=== PATIENT | female | born 1995 | race Caucasian/White ===

== ENCOUNTER 2018-02-21 01:11 | Emergency (ER) | payer MEDICAID, SELFPAY ==
[2018-02-21 01:11] VITALS: BP 196/113; PULSE 130; RESP 18; TEMP 37.1; O2SAT 96; BMI 66.8
--- NOTE | 2018-02-21 01:20 | CT_ITS ---
STUDY: CT ABDOMEN AND PELVIS WITH CONTRAST REASON FOR EXAM: Female, 22 years old. Right lower quadrant pain. Elevated WBCs. RADIATION DOSAGE (If Supplied By Facility): CTDIvol = ( 40.91 ) mGy, DLP = ( 1826.99 ) mGycm TECHNIQUE: Transaxial images were obtained from the dome of the diaphragm to the symphysis pubis without oral contrast. 100ML ml of Isovue 300 contrast was administered. Sagittal and coronal images were reconstructed. Individualized dose optimization techniques were used for this CT. COMPARISON: None. FINDINGS: The visualized lung bases are unremarkable. The visualized portions of the heart are within normal limits. Normal liver. Normal gallbladder and extrahepatic biliary system. Normal spleen. Normal pancreas. Normal bilateral adrenal glands. Normal right kidney. Normal left kidney. Normal visualized stomach. Normal small intestine. There is fecal retention. The appendix is suboptimally visualized but appears to be unremarkable best seen on axial images 77 and 78 series 2. It appears to be short. No periappendiceal inflammatory changes are seen. Normal abdominal aorta. Normal inferior vena cava. Normal retroperitoneum. There is a cystic structure in the pelvic lesion in the midline in the lesion of the bladder however is slightly presenting cystic lesion. The bladder is questionably visualized proximal inferior and axial images and appears to be collapsed. Contrast however has not yet reached the bladder. Further evaluation with ultrasound is recommended. There is a 5.5 cm cystic lesion in the left adnexal region. Normal abdominal wall. Normal osseous structures. CT/Abdomen/Pelvis WITH Contrast IMPRESSION: No evidence of acute appendicitis as described above. Cystic structure in the lower pelvic lesion which could represent a cystic lesion or less likely may represent urinary bladder. Correlation with pelvic ultrasound is recommended. 5.5 cm left adnexal cystic lesion. Otherwise no demonstrated acute process. Electronically Signed: Zachariah Christianson MD at 3:44 EDT Tel , Service support ,
--- NOTE | 2018-02-21 01:23 | ED.VISSUMM ---
- ER Visit Summary Date of Service: 02/21/18 Chief Complaint: Abdominal pain History of Present Illness: The patient is a 22 F presenting with abdominal pain. She states it started earlier today. She has pain in the right lower quadrant. She has nausea with no vomiting. She has diarrhea. She denies blood in her stool. She also complains of dysuria. Denies vaginal discharge or bleeding. Denies possibility of . Denies other complaints. Physical Examination: Vitals are stable. Patient is afebrile. Alert no acute distress. HEENT exam is unremarkable. Neck is supple. Lungs are clear and equal bilaterally. Heart is regular and tachycardic Abdomen is soft obese, right lower quadrant tenderness with no rebound or guarding. Extremities are unremarkable. Skin is warm and dry. Remainder of exam is unremarkable. Emergency Department Course and Treatment: Patient is given IV fluids, morphine, Zofran. CBC shows a white count of 12.8, platelets 613. This is similar to previous. Glucose is 140. HCG negative. UA shows 0-5 white blood cells, 0 red cells, 10-[address] abd/pelvis shows no evidence of acute appendicitis. Cystic structure in the lower pelvic lesion which could represent a cystic lesion or less likely may represent urinary bladder. Correlation with pelvic ultrasound is recommended. 5.5 cm left adnexal cystic lesion. Otherwise no demonstrated acute process. Pelvic ultrasound shows enlarged ovaries right larger than left containing multiple simple cysts. Findings are compatible with either atypical physiologic cysts or benign ovarian neoplasms. Normal vascular flow. Patient has a history of PCOS but has not seen FLOOD CONTROL ENGINEER in 2 years[address] She was given Dr. Bullard information for follow-up. She is given a prescription for Naprosyn. Advised return to ED for worsening complaints. Disposition: Discharge home Impression: Abdominal pain, polycystic ovarian syndrome This note was generated with [employer] dictation software. It may contain incorrect words, spelling, and punctuation that were not noted in review of the chart prior to signing ED Disposition - Plan for ED Patient: Chief Complaint: Abd Pain Instructions: ED Abdominal Pain Unkn Cause, ED Cyst Ovarian Prescriptions: Naproxen [Naprosyn] 500 mg PO BID PRN #20 tablet Referrals: Cynthia Bullard MD [STAFF PHYSICIAN] - Care Physician,No Primary [NON-STAFF] -
[2018-02-21] MEDS: Morphine 4 MG/ML Syringe IV (01:29)
[2018-02-21] MEDS: Ondansetron 4 MG/2 ML Vial IV (01:29)
[2018-02-21] MEDS: 0.9% Normal Saline 1,000 ML 1000 ML IV (01:29)
[2018-02-21 01:55] LABS: Absolute Lymphocyte Count 3.53 X10^3/ul (0.83-4.51); Absolute Neutrophil Count 8.2 X10^3/uL (2.0-7.7); Basophil# 0.04 X10^3/uL; Basophil% 0.3 % (0-1); Eosinophil# 0.21 X10^3/uL; Eosinophils% 1.6 % (0-5); Hematocrit 39.9 % (37-47); Lymphocyte # 3.53 X10^3/ul (4.0); Lymphocyte % 27.6 % (19-41); Mean Corp Hgb Conc 32.6 g/gl (32-36); Mean Corpuscular Hgb 25.5 pg (27.0-32.0); Mean Corpuscular Volume 78.4 fL (81-99); Mean Platelet Vol. 9.2 fl (6.2-12.0); Monocyte# 0.74 X10^3/uL; Monocyte% 5.8 % (0-10); Neutrophil # 8.23 X10^3/uL (2.7-7.7); Neutrophil % 64.5 % (47-70); POSITIVE COUNT NO; POSITIVE DIFFERENTIAL NO; POSITIVE MORPHOLOGY NO; Platelet Count 613 K/mm3 (150-450); RBC Distribution Width CV 16.3 % (11.6-14.6); RBC Distribution Width SD 46.1 fl (35.1-43.9); Red Blood Count 5.09 M/mm3 (4.2-5.4); White Blood Count 12.8 K/mm3 (4.4-11.0)
[2018-02-21 02:03] LABS: ALB/GLOB Ratio 0.5 RATIO (0.9-2.4); AST(SGOT) 16 U/L (15-37); Alanine Aminotransfer ALT/SGPT 22 U/L (13-56); Albumin, Serum 3.1 g/dL (3.2-5.0); Alkaline Phosphatase 97 U/L (45-117); Anion Gap 7 (5-15); BUN 8 mg/dL (7-18); BUN/Creat Ratio 13.5 RATIO (10-20); Chloride 105 mmol/L (98-107); Creatinine, Serum 0.59 mg/dL (0.55-1.02); EST Glomerular Filtration Rate 132 mL/min (>60); Est Glom Filt Rate - Afr Amer 160 mL/min (>60); Estimated Creatinine Clearance 121.63 ml/min; Globulin 5.9 g/dL (2.2-4.2); Glucose 140 mg/dL (74-106); Potassium 3.9 mmol/L (3.5-5.1); Sodium Level 138 mmol/L (136-145)
[2018-02-21 02:19] LABS: Pregnancy, Serum, hCG Quali. NEGATIVE Negative (0-9 Nonpreg)
[2018-02-21 02:36] LABS: Bacteria 0 SEEN /hpf (None Seen); Red Blood Cells-Urine 0 SEEN /hpf (0-5)
[2018-02-21 02:37] LABS: Color, Urine Yellow (Yellow); Glucose, Dipstick Normal (Normal); Ketone-Dipstick 5 mg/dl (Negative); Leukocyte Esterase-Dipstick 25 /ul (Negative); Nitrite-Dipstick Negative (Negative); Occult Blood-Urine 25 /ul (Negative); Protein-Dipstick 500 mg/dl (Negative); Specific Gravity, Urine 1.025 (1.002-1.030); Urine Bilirubin Dipstick Negative (Negative); Urine Clarity Sl. Cloudy (Clear); Urine Urobilinogen 1 mg/dl (Normal)
[2018-02-21 02:46] LABS: Mucous, Urine 2+ /hpf (<or=2+); Squamous Epithelial Cells - UA 10-25 SEEN /hpf (5-10); White Blood Cells 0-5 SEEN /hpf (0-5)
[2018-02-21 02:47] LABS: Hyaline Cast 5-10 SEEN /lpf (0-5)
[2018-02-21 03:32] VITALS: RESP 18
--- NOTE | 2018-02-21 03:47 | US_ITS ---
STUDY: ULTRASOUND TRANSVAGINAL CLINICAL: Female, 22 years old. Ovarian cyst. No menstrual cycle this year. TECHNIQUE: Transvaginal COMPARISON: CT abdomen and pelvis February 21, 2018. FINDINGS: The uterus is empty for potential to the right. There is some 0.6 x 4.3 x 3.3 cm. Endometrial thickness 10 mm. Endometrium is hyperechoic. No fibroids. Nabothian cysts on the cervix. No IUP. Right ovary is enlarged, measures 12.2 x 8.2 x 7.9 cm and contains multiple simple cysts the largest measuring 6.6 x 5.6 x 6.2 cm and 7.0 x 6.0 x 5.4 cm. No irregular septations. Normal vascular flow. Left ovary is enlarged measuring 6.7 x 4.2 x 3.9 cm and contains multiple simple cysts largest measuring 3.7 x 3.6 x 2.4 cm. No irregular septations. Normal vascular flow. No free fluid in the cul-de-sac. Images of the bladder are unremarkable. US/Transvaginal Non- IMPRESSION: Enlarged ovaries right larger than left containing multiple simple cysts. Findings are compatible with either atypical physiologic cysts or benign ovarian neoplasms. Recommend CROSS COUNTRY COACH consult. Electronically Signed: Yinka Chambers MD at 5:41 EDT , Service support ,
[2018-02-21 04:41] VITALS: PULSE 99
--- NOTE | 2018-02-21 05:48 | ED.DEP ---
ED Disposition - Plan for ED Patient: Chief Complaint: Abd Pain Instructions: ED Abdominal Pain Unkn Cause, ED Cyst Ovarian Prescriptions: Naproxen [Naprosyn] 500 mg PO BID PRN #20 tablet Referrals: Care Physician,No Primary [NON-STAFF] - Cynthia Bullard MD [STAFF PHYSICIAN] -
[2018-02-21 05:57] VITALS: BP 164/104; PULSE 74; RESP 18; O2SAT 95
== END 2018-02-21 05:58 | disposition home or self-care (01) ==
PROVIDERS: Emergency Provider Emergency Medicine; Family Provider Student in an Organized Health Care Education/Training Program; PCP Student in an Organized Health Care Education/Training Program
DX: R10.31 Right lower quadrant pain (principal); E28.2 Polycystic ovarian syndrome; R11.0 Nausea; R19.7 Diarrhea, unspecified; R30.0 Dysuria; N83.8 Other noninflammatory disorders of ovary, fallopian tube and broad ligament; N83.202 Unspecified ovarian cyst, left side; N83.201 Unspecified ovarian cyst, right side
CPT/HCPCS: 74177; 76830; 80053; 81001; 84703; 85025; 93976; 96361; 96374; 96375; 99283; J7030; Q9967; A4216; J2405

== ENCOUNTER 2018-03-21 11:11 | Day surgery (SDC) | payer MEDICAID, SELFPAY ==
[2018-03-21] VITALS (12 sets, daily range): BP systolic 149–177; BP diastolic 86–109; PULSE 82–122; RESP 16–28; TEMP 36.4–36.9; O2SAT 90–98; BMI 65.5
--- NOTE | 2018-03-21 09:37 | HP.PCM_ITS ---
- Problem List (1) Bilateral ovarian cysts Status: Acute Comment: recommend laparoscopic ovarian cystectomy (2) PCOS (polycystic ovarian syndrome) Status: Acute Comment: Mirena IUD History and Physical Date of Admission: 03/21/18 Intake Vital Signs 3 02/27/18 Height 5 ft 3 in 02/27/18 Weight: 382 lb 02/27/18 Body Mass Index (BMI) 67.6 Intake Visit Reasons: [facility] ER FOLLOW UP - RIGHT OVARIAN CYST Is patient in pain?: Yes Allergies No Known Allergies Allergy (Verified 02/27/18 16:24) Medications Naproxen [Naprosyn] 500 mg PO BID PRN #20 tab 02/21/18 [Rx Confirmed 02/27/18] [facility] Medical History Bilateral ovarian cysts (Acute) PCOS (polycystic ovarian syndrome) (Acute) Anxiety and depression (Acute) Surgical History History of ear, nose, and throat (ENT) surgery (Acute) History of tonsillectomy (Acute) corrective eye surgery (Acute) Family History Mother Diabetes Kidney disease Social History Smoking Status: Never smoker alcohol intake: never substance use type: does not use caffeine: No what type of physical activity do you participate in: walking seatbelt use: always do you feel safe at home: Yes additional social history: [place] Patient is unemployed HPI [facility] ER FOLLOW UP - RIGHT OVARIAN CYST: Details: SOLEDAD LOYOLA is a 22 year old who presents for lower pelvic pain. she has a 1 week history of intermittent moderate to severe lower pelvic painw orse on right than the left. she was seen in the ER and it was found that she has large bilateral ovarian cysts with normal vascular flow. she has a history of PCOS and irregular menses. she hasn't had a menses in a long time they are very irregular. she isn't wanting to conceive right now and isn't on any control. had ct scan with normal appendix Female Reproductive History Cycle Length: >35 Control Method: none Questions: Metorrhagia: Yes, Sexually active: Yes, Dyspareunia: No, PCB: No Pregancy History 2 1 Elective abortions Hx Para Spontaneous abortions 1 Hx # Term Pregnancies Ectopic pregnancies Hx # Pregnancies Multiple births # of living children ROS Const Constitutional: Denies poor appetite, headache(s), fever(s), increased appetite , weight gain, weight loss or fatigue ENT ENT: Denies dizziness or dry mouth Cardio Card: Denies chest pain Resp Resp: Denies dyspnea or cough GI GI: Reports as per HPI and abdominal pain; denies vomiting, nausea or constipation : Reports as per HPI; denies urinary urgency, vaginal discharge, urinary frequency, vaginal itching, vaginal odor, vaginal dryness, urinary incontinence, urinary hesitancy, pelvic pain, difficulty urinating or painful urination Musc Musc: Denies muscle weakness, joint pain or back pain Skin Skin/Breast: Denies hair loss, change in hair, dry skin, breast pain, breast skin changes or breast lump Neuro Neuro: Denies dizziness Psych Psych: Denies anxiety or depression Endo Endo: Denies cold intolerance, increased thirst, excessive sweating or heat intolerance Sina/Lymph Hematologic/Lymphatic: Denies easy bleeding, Denies easy bruising, Denies enlarged lymph nodes Exam Const General: cooperative, healthy appearing, comfortable, no acute distress, well developed Nutritional Appearance: obese morbidy Orientation: alert HENMS Head: normal to inspection, normocephalic Ears: hearing grossly normal bilaterally, external ears normal Nose: external nose normal, nares normal Face and sinus: normal facial exam Neck Neck: normal visual inspection, trachea midline, no lymphadenopathy Thyroid: thyroid normal Chest Chest palpation & inspection: normal inspection of the chest Resp Effort & Inspection: normal respiratory effort Auscultation: clear to auscultation bilaterally Cardio Rate: regular rate Rhythm: regular rhythm Heart Sounds: S1 normal, S2 normal GI Inspection: normal to inspection, non-distended, large pannus, obesity Palpation: soft, tender in the RLQ [facility] [place] Spine: other Other: gross motor intact no deficits, full bilateral strength Skin General: no rashes or lesions noted Neuro General: alert, awake, no focal motor deficits, moves all extremities Motor: muscle tone normal throughout Extrem General: normal to inspection, no pedal edema Psych Appearance: grossly normal Mental Status: mental status grossly normal Affect: normal affect Speech and Movement: speech and movement normal Assessment & Plan Problems 1. PCOS (polycystic ovarian syndrome) E28.2 Mirena IUD 2. Bilateral ovarian cysts N83.201; N83.202 recommend laparoscopic ovarian cystectomy Plan discussed surgical managment and recommend control/endometrial protection. plan laparoscopic bilateral ovarian cystectomies possible oophorectomy, and mirena IUD insertion. Discussed with the patient risks of surgery including risks of anesthesia, bleeding, infection, damage to surrounding structures such as bowel, bladder, or vasculature that could lead to additional surgery to repair. I discussed the risk of needing to convert to open abdominal procedure if unable to perform the procedure laparoscopically. Coding Level of Care Code Off vis,new,level 5 Diagnoses PCOS (polycystic ovarian syndrome) E28.2 Bilateral ovarian cysts N83.201; N83.202 patient seen and updated the h and p with any clinically relevant changes
[2018-03-21 11:45] LABS: Internal QC Validated? YES +Cl - CLEAR BKGD; Pregnancy, Urine Negative Negative
[2018-03-21 11:53] LABS: Mean Corp Hgb Conc 31.6 g/gl (32-36); Mean Corpuscular Hgb 25.2 pg (27.0-32.0); Mean Corpuscular Volume 79.7 fL (81-99); Mean Platelet Vol. 9.3 fl (6.2-12.0); Platelet Count 555 K/mm3 (150-450); RBC Distribution Width CV 16.2 % (11.6-14.6); RBC Distribution Width SD 46.7 fl (35.1-43.9); Red Blood Count 4.77 M/mm3 (4.2-5.4); White Blood Count 12.2 K/mm3 (4.4-11.0)
[2018-03-21 11:56] LABS: Scan Indicated on CBC? Y/N NO
[2018-03-21] MEDS: Ipratropium/Albuterol Sulfate 3 ML AMPUL.NEB INHALATION (12:46)
--- NOTE | 2018-03-21 13:00 | OV_PTH ---
PATIENT: SOLEDAD LOYOLA [place] [facility] [place][id number] AGE/SX: 22/F ROOM: RE03/21/[address]: Dr. Cynthia Bullard MD : 1995 BED: DIS: 03/21/2018 SPEC #: [id number] RECD: 03/21/18 16:07 STATUS: JESSICA JULIAN #: [id number] EDGAR: 03/21/18 13:[address]: Cynthia Bullard DEPT: SURGICAL PATHOLOGY RECD BY: Karlo Harris ENTERED: 03/24/18 10:17 SP TYPE: OVARY OTHR DR: Dr. Xiang Ruiz, Tissues: A - OVARIAN CYST B - Fallopian tube C - OVARIAN CYST Procedures: Surgery Specimen Level II Surgery Specimen Level IV HEADER OPERATION: Laparoscopic bilateral ovarian cystectomy, IUD insertion PRE-OP DIAGNOSIS: Bilateral ovarian cysts, PCOS TISSUE SUBMITTED: A ? Right ovarian cyst wall, B ? Right fallopian tube mass, C ? Left ovarian cyst wall MICROSCOPIC DIAGNOSIS A. Right ovarian cyst wall: Consistent with simple serous cystadenoma. B. Right fallopian tube mass: Fallopian tube, no pathologic diagnosis. Adjacent nodular mass, consistent with fibrous nodule with area of infarction. See comment. C. Left ovarian cyst wall: Consistent with simple serous cystadenoma. Physiologic follicular cysts. SJ:arina 03/25/18 COMMENT Nodular mass also show adherent fallopian tube tissue. This case has been reviewed in consultation with Dr. Hodges who concurs with the above diagnosis. MICROSCOPIC DESCRIPTION Slides are reviewed. GROSS DESCRIPTION A - Received in fixative is one container labeled with the patient's name and designated right ovarian cyst wall. The specimen consists of several pieces of yang soft tissue consistent of cyst wall measuring in aggregate 7 x 2 cm. No papillations are identified. Sugar Coating Hand sections are submitted in 3 cassettes. B - Received is one container labeled with the patient name and designated right ovarian fallopian tube mass. Received is fallopian tube with edges and nodular mass. The fallopian measures 2.5 cm in length and 1 cm in diameter. Fimbrial end is noted. Section of fallopian tube did not reveal any mass lesion. A nodular mass is noted adjacent to it which measures 2.7 x 2 x 1.7 cm. It weighs 5.6 grams. Sections reveal focally congested and hemorrhagic cut surfaces. The entire specimen is submitted in four cassettes as follows: 1 ? fallopian tube, 2?4 nodular mass. C ? Received in fixative is one container labeled with the patient's name and designated left ovarian cyst wall. The specimen consists of 2 pieces of yang soft tissue consistent with cyst wall measuring in aggregate 4 x 2 x 0.5 cm. No papillations are identified. The entire specimen is submitted in two cassettes. WALKER:arina 03/23/18 TC: 1 CPT: 64221 x3
[2018-03-21] MEDS: Bupivacaine 0.25% 30 ML Vial (15:00)
--- NOTE | 2018-03-21 16:47 | PCM.DC.TUB ---
Discharge Diet: No Restrictions - Increase fluid intake for the next 48 hours. Discharge Activity: Return to Normal Activity, May Drive - when you are no longer taking narcotic pain medications., May Shower, May Take a Tub Bath - in 7 days Additional Activity Instructions:: Ambulate often the next week after surgery. Nothing in the vagina for 5 days. Call your doctor if your incision/area has: Continuous Slow Oozing, Sudden Increased Bleeding, Increased Pain/ Swelling, Increased Redness, Foul Smelling Discharge Call your doctor if you observe: Fever of 101 or Higher Allergies/Adverse Reactions: Allergies No Known Allergies Allergy (Verified 03/17/18 09:34) Medications to take at Discharge Naproxen [Naprosyn] 500 mg PO BID PRN #20 tab 02/21/18 Naproxen [Naprosyn] 250 - 500 mg PO Q8H PRN PRN #30 tab 03/21/18 Oxycodone HCl/Acetaminophen [Percocet 5-325] 1 - 2 tablet PO Q4H PRN PRN 7 Days #28 tablet 03/21/18 The following prescriptions were given: Oxycodone HCl/Acetaminophen [Percocet 5-325] 1 - 2 tablet PO Q4H PRN PRN 7 Days #28 tablet PRN Reason: Moderate-Severe pain Naproxen [Naprosyn] 250 - 500 mg PO Q8H PRN PRN #30 tab PRN Reason: MILD PAIN Primary Care Physician: Xiang Ruiz DO [Primary Care Provider] - Please Follow Up With: Cynthia Bullard MD - [phone]
--- NOTE | 2018-03-22 01:34 | PCM.OPRPT ---
Problem List (1) Bilateral ovarian cysts Status: Acute Comment: recommend laparoscopic ovarian cystectomy (2) PCOS (polycystic ovarian syndrome) Status: Acute Comment: Mirena IUD (3) Acute pelvic pain, female Status: Acute Report of Operation Date of Procedure: 03/21/18 Pre-Operative Diagnosis: bilateral ovarian cysts, morbid obesity, pelvic pain Post-Operative Diagnosis: same plus liver puncture, right fallopian tube mass Surgery/Procedure Performed:: laparoscopic bilateral ovarian cystectomies right partial salpingectomy, mirena IUD placement Description of Surgical Findings:: hepatomegaly with liver extending below the left costal margin beyond the stomach, enlarged gall bladder, bilateral enlarged ovaries with multicystic appearance, right fallopin tub mass extending from the fimbriae. normal uterus and normal appendix. normal appearance of stomach and bowel. coating supervisor: Luis Alberto Garcia Type of Anesthesia:: General Special Medications: none Specimen's removed: right fallopian tube mass, ovarian cyst wall Drains: linton Estimated Blood Loss (mL): minimal Fluids Replaced: crystalloid Description of Procedure: Patient was taken in the operating room and was placed under general anesthesia was prepped and draped in normal sterile fashion in the dorsal lithotomy position. Bladder was drained of clear urine and SCDs were on preoperatively. Uterus was sounded and a uterine manipulator was placed after dilating. Attention was then paid to the abdominal portion of the procedure and due to the morbid obesity of a BMI of 65 and the large pannus the initial entry was made at webster's point located 3 cm below the left subcostal margin in the midclavicular line, it was injected with Marcaine and after a 5 mm incision was made and the Veress needle was entered into the abdomen with no blood or abnormal material aspirated upon entry, but was unable to locate the right plane and had a high opening pressure. The veres needle entry was aborted and the abdomen was entered under direct visualization with the 5 mm visiport and confirmed to be intraabdominal, the Abdomen was insufflated with CO2 gas. The area below the trocar was inspected and it was noted there were 2 small puncture of the lower edge of the liver caused by the veres needle that had a small adherent clot but were hemostatic. General surgery was consulted and Dr Mayo supervised exploration of the area at the bedside after a supraumbilical, right, and left lower quadrant ports were placed. the area was inspected and a through and through puncture was noted in the liver with no injury to the underlying stomach and bowel below were seen after close inspection. excellent hemostasis was noted. The liver was noted to be significantly enlarged and extending well below it's normal anatomic location, and the gall bladder was noted to be enlarged as well with no acute findings. Uterus was well visualized and bilaterally the ovaries were noted to be multicystic and grossly enlarged. The right ovarian cysts were drilled and drained of clear fluid and cystectomies were performed with sharp, blunt, and traction for extraction. It was then noted that the right fallopian tube had a 3x2 cm smoother but irregularly appearing mass attached to it, which was also adhesed to the right pelvic side wall adjacent to the appendix. the adhesions were taken down bluntly and the appendix identified and noted to be grossly normal, and the fallopian tube mass and attached fimbria were removed without complication or rupture and remove through a bag using a 12 mm port in the llq. Excellent hemostasis was noted. left ovarian cysts were drained and cytectomy performed and tissues removed. excellent hemostasis noted and no other gross abnormalities were seen in the abdomen. All instruments removed from the abdomen after gas was desufflated. Port sites were closed with 3-0 Monocryl Steri's and op sites were applied. All instruments removed from the vagina, uterus sounded to 8 cm and mirena IUD placed without difficulty and strings cut to 3-4 cm from the os and patient was awoken and taken recovery in stable condition. Grafts/Implants Used: none - Complications left liver puncture with excellent spontaneous hemostasis
== END 2018-03-21 19:30 | disposition home or self-care (01) ==
LOC: SDC 11:12 → AC 11:14
PROVIDERS: Family Provider Student in an Organized Health Care Education/Training Program; PCP Student in an Organized Health Care Education/Training Program; Visit Provider Obstetrics & Gynecology
PROC: (CPT 58300; principal; 2018-03-21 12:45)
DX: N83.02 Follicular cyst of left ovary (principal); K91.72 Accidental puncture and laceration of a digestive system organ or structure during other procedure; E28.2 Polycystic ovarian syndrome; D64.9 Anemia, unspecified; G47.30 Sleep apnea, unspecified; E66.01 Morbid (severe) obesity due to excess calories; Z68.44 Body mass index [BMI] 60.0-69.9, adult
CPT/HCPCS: 00840; 58300; 58661; 58662; 36415; 81025; 85027; 86850; 86900; 88302; 88305; 94640; J7120; J2405; J3490

== ENCOUNTER 2018-03-25 16:08 | Emergency (ER) | payer MEDICAID, SELFPAY ==
[2018-03-25 16:09] VITALS: BP 163/109; PULSE 123; RESP 22; TEMP 36.9; O2SAT 94; BMI 65.3
[2018-03-25 16:50] LABS: Absolute Lymphocyte Count 2.86 X10^3/ul (0.83-4.51); Basophil# 0.01 X10^3/uL; Basophil% 0.1 % (0-1); Eosinophil# 0.27 X10^3/uL; Eosinophils% 2.5 % (0-5); Hematocrit 35.9 % (37-47); Hemoglobin 10.8 g/dl (12.0-15.0); Lymphocyte # 2.86 X10^3/ul (4.0); Lymphocyte % 26.7 % (19-41); Mean Corp Hgb Conc 30.1 g/gl (32-36); Mean Corpuscular Hgb 24.2 pg (27.0-32.0); Mean Corpuscular Volume 80.3 fL (81-99); Monocyte# 0.57 X10^3/uL; Monocyte% 5.3 % (0-10); Neutrophil # 6.99 X10^3/uL (2.7-7.7); Neutrophil % 65.2 % (47-70); POSITIVE COUNT NO; POSITIVE DIFFERENTIAL NO; POSITIVE MORPHOLOGY NO; Platelet Count 470 K/mm3 (150-450); RBC Distribution Width CV 16.2 % (11.6-14.6); RBC Distribution Width SD 47.4 fl (35.1-43.9); Red Blood Count 4.47 M/mm3 (4.2-5.4); White Blood Count 10.7 K/mm3 (4.4-11.0)
[2018-03-25 17:03] LABS: Anion Gap 7 (5-15); BUN 14 mg/dL (7-18); BUN/Creat Ratio 23.3 RATIO (10-20); Calcium,Total 8.7 mg/dL (8.5-10.1); Chloride 106 mmol/L (98-107); EST Glomerular Filtration Rate 130 mL/min (>60); Est Glom Filt Rate - Afr Amer 157 mL/min (>60); Glucose 115 mg/dL (74-106); Sodium Level 142 mmol/L (136-145)
[2018-03-25 17:16] LABS: Pregnancy, Serum, hCG Quali. NEGATIVE Negative (0-9 Nonpreg)
--- NOTE | 2018-03-25 17:28 | CT_ITS ---
STUDY: CT ABDOMEN AND PELVIS WITH CONTRAST REASON FOR EXAM: Female, 22 years old. Left lower quadrant pain with ovarian cyst RADIATION DOSAGE (If Supplied By Facility): CTDIvol = ( 16.32 ) mGy, DLP = ( 1528.61 ) mGycm TECHNIQUE: Transaxial images were obtained from the dome of the diaphragm to the symphysis pubis without oral contrast. 100 ml of Isovue 300 contrast was administered. Sagittal and coronal images were reconstructed. Study is limited due to artifact from morbid obesity. Individualized dose optimization techniques were used for this CT. COMPARISON: None. FINDINGS: The visualized lung bases are unremarkable. The visualized portions of the heart are within normal limits. There is decreased attenuation of the liver consistent with steatosis. Mild hepatomegaly. Normal gallbladder and extrahepatic biliary system. Normal spleen. Normal pancreas. Normal bilateral adrenal glands. Normal right kidney. Normal left kidney. Normal visualized stomach. Normal small intestine. Normal colon. The appendix is visualized and appears normal. Normal abdominal aorta. Normal inferior vena cava. Normal retroperitoneum. Normal urinary bladder. Metallic IUD seen in the endometrium. Subcutaneous emphysema seen within the overlying anterior abdominal wall. Recent surgical history. There are diffuse degenerative changes of the visualized lumbar spine. CT/Abdomen/Pelvis W IV Cont ONLY IMPRESSION: No acute findings. Subcutaneous emphysema overlying the anterior abdominal wall, likely from recent surgery. Morbid obesity. Remainder is within normal limits. Electronically Signed: Josef Haywood DO at 18:11 EDT Tel , Service support ,
[2018-03-25] MEDS: Ondansetron 4 MG/2 ML Vial IV (17:40)
[2018-03-25] MEDS: HYDROmorphone 1 MG/ML Syringe IV (17:40)
[2018-03-25 18:20] LABS: ALB/GLOB Ratio 0.6 RATIO (0.9-2.4); AST(SGOT) 16 U/L (15-37); Alanine Aminotransfer ALT/SGPT 23 U/L (13-56); Alkaline Phosphatase 80 U/L (45-117); Anion Gap 9 (5-15); BUN 14 mg/dL (7-18); BUN/Creat Ratio 24.4 RATIO (10-20); Calcium,Total 8.7 mg/dL (8.5-10.1); Chloride 106 mmol/L (98-107); Creatinine, Serum 0.57 mg/dL (0.55-1.02); EST Glomerular Filtration Rate 137 mL/min (>60); Est Glom Filt Rate - Afr Amer 166 mL/min (>60); Estimated Creatinine Clearance 125.89 ml/min; Glucose 116 mg/dL (74-106); Lipase 237 U/L (73-393); Potassium 4.1 mmol/L (3.5-5.1); Sodium Level 143 mmol/L (136-145)
[2018-03-25 18:25] VITALS: BP 145/90; PULSE 96; RESP 15; O2SAT 91
--- NOTE | 2018-03-25 19:44 | ED.VISSUMM ---
- ER Visit Summary Date of Service: 03/25/18 Chief Complaint: Incisional pain History of Present Illness: The patient is a 22 F with pain at the left lower incisional site status post a cystectomy 4 days ago. No fever or chills. Physical Examination: Morbidly obese female with clean dry and intact wound from laparoscopic surgery. She has tenderness only in the pannus near her incisional region. 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 Disposition: Discharge stable condition Impression: Incisional pain status post surgery This note was generated with [employer] dictation software. It may contain incorrect words, spelling, and punctuation that were not noted in review of the chart prior to signing ED Disposition - Plan for ED Patient: Disposition: Home or Assisted Living Chief Complaint: Abd Pain Instructions: ED Abdominal Pain Unkn Cause Referrals: Xiang Ruiz DO [Primary Care Provider] - 3-5 Days
[2018-03-25 20:00] VITALS: BP 134/75; PULSE 89; RESP 22; O2SAT 98
--- NOTE | 2018-03-25 20:01 | ED.RN ---
THIS NURSE REVIEWED D/C INSTRUCTIONS WITH PT. PT VERBALIZED UNDERSTANDING OF INSTRUCTIONS. IV D/C. IV CATHETER INTACT. PT TOLERATED WELL. DRESSING TO LEFT LOWER ABD CHANGED PER PT REQUEST. PT TOLERATED WELL. PT DENIES FURTHER NEEDS OR QUESTIONS AT THIS TIME. PT AMBULATES FROM ROOM ON OWN WITHOUT ASSISTANCE FROM STAFF
== END 2018-03-25 20:02 | disposition home or self-care (01) ==
PROVIDERS: Emergency Provider Emergency Medicine; Family Provider Student in an Organized Health Care Education/Training Program; PCP Student in an Organized Health Care Education/Training Program
DX: R10.9 Unspecified abdominal pain (principal); Z90.6 Acquired absence of other parts of urinary tract; E66.01 Morbid (severe) obesity due to excess calories
CPT/HCPCS: 74177; 80048; 80053; 83690; 84703; 85025; 96374; 96375; 99283; J7030; J7040; Q9967; A4216; J2405

== ENCOUNTER → 2018-04-01 17:31 | Outpatient (CLI) | payer MEDICAID, SELFPAY | PROVIDERS: Family Provider Student in an Organized Health Care Education/Training Program; PCP Student in an Organized Health Care Education/Training Program; Visit Provider Obstetrics & Gynecology | DX: T81.4XXA Infection following a procedure, initial encounter (principal) | CPT/HCPCS: 87070; 87075; 87205 ==

== ENCOUNTER 2020-02-26 12:14 | Emergency (ER) | payer MEDICAID, SELFPAY ==
[2020-02-26 12:14] VITALS: BP 171/83; PULSE 96; RESP 16; O2SAT 99
[2020-02-26 12:15] VITALS: BP 171/83; PULSE 96; RESP 16; TEMP 36.7; O2SAT 99; BMI 61.3
--- NOTE | 2020-02-26 12:35 | ED.DCSUM_ITS ---
- ER Visit Summary Date of Service: 02/26/20 Chief Complaint: Back pain History of Present Illness: The patient is a 24 F who presents with back pain that began yesterday. Patient states she has a history of chronic back pain with sciatica. Patient states that her pain started getting worse yesterday and today she stood up from a seated position and felt a pop in her low back. Patient states that her pain is worse with any movement. Patient states she was having difficulty walking due to the pain. Patient denies any bowel or bladder changes. Patient admits to some tingling in her third and fourth digits of her left foot. Patient states the pain is worse over the left lower lumbar area and radiates down the left lower extremity. Patient denies any radiation of the pain into the abdomen. Patient denies any fevers or chills. Patient denies any urinary complaints. Patient states she was told she needs physical therapy but she has not scheduled an appointment for that yet. Physical Examination: Vital signs are stable. Patient is afebrile. Patient is in no acute distress. Oral mucosa is pink and moist. Neck is supple. Trachea is midline. There is no JVD. Musculoskeletal exam shows tenderness over the left lower lumbar paraspinal muscles and sciatic notch. There is no bony crepitance or step-off. Strength is 5/5 bilateral in lower extremities. There are no sensory deficits noted. Deep tendon reflexes are 2/4 bilaterally in the lower extremities. Range of motion was limited in all motions of the lumbar spine secondary to pain. Emergency Department Course and Treatment: Patient was given injections of Toradol, Norflex, and morphine here. Patient was instructed to use ice to the area. Patient was given prescriptions for Naprosyn and Flexeril. Patient was instructed to follow-up with her primary care physician in 3 to 5 days. Patient understood and was agreeable with the plan. All questions were answered. Disposition: Discharge home Impression: Sciatica This note was generated with [employer] dictation software. It may contain incorrect words, spelling, and punctuation that were not noted in review of the chart prior to signing ED Disposition - Plan for ED Patient: Disposition: Home or Assisted Living Diagnosis: Sciatica of left side Instructions: ED Back Pain Acute or Chronic Prescriptions: cycloBENZAPRine HCl [Flexeril] 10 mg PO TID PRN #20 tab PRN Reason: Muscle Spasm Prescription Printed Naproxen [Naprosyn] 500 mg PO BID PRN #20 tab Prescription Printed Referrals: Xiang Ruiz [Primary Care Provider] - 3-5 Days
[2020-02-26] MEDS: Morphine 4 MG/ML Syringe IM (12:52)
[2020-02-26] MEDS: Ketorolac 60 MG/2 ML Vial IM (12:52)
[2020-02-26] MEDS: Orphenadrine 60 MG/2 ML Ampul IM (12:52)
[2020-02-26] MEDS: Morphine 4 MG/ML Syringe SC (15:12)
[2020-02-26 15:39] VITALS: BP 142/76; PULSE 84; RESP 16; O2SAT 96
== END 2020-02-26 15:41 | disposition home or self-care (01) ==
LOC: ED 13:49
PROVIDERS: Emergency Provider Emergency Medicine; PCP Student in an Organized Health Care Education/Training Program
DX: M54.42 Lumbago with sciatica, left side (principal); G89.29 Other chronic pain; E66.9 Obesity, unspecified; J45.909 Unspecified asthma, uncomplicated; E28.2 Polycystic ovarian syndrome
CPT/HCPCS: 96372; 99284

== ENCOUNTER 2021-01-07 16:06 | Emergency (ER) | payer MEDICAID, SELFPAY ==
[2021-01-07 16:08] VITALS: BP 163/127; PULSE 95; RESP 15; TEMP 36.7; O2SAT 98; BMI 66.2
--- NOTE | 2021-01-07 16:24 | CT_ITS ---
EXAM: CT ABDOMEN AND PELVIS WITH INTRAVENOUS CONTRAST CLINICAL INDICATION: abdominal pain -- IV PO Contrast TECHNIQUE: Helically acquired images were obtained of the abdomen and pelvis with intravenous contrast. This CT exam was performed using one or more of the following dose reduction techniques: automated exposure control, adjustment of the mA and/or kV according to patient size, and/or use of iterative reconstruction technique. This report was created using [employer] report generation technology. CONTRAST: Oral and amp; IV Gastrografin and amp; 100mL Isovue-370 COMPARISON: None. FINDINGS: LOWER THORAX: Unremarkable. Lung bases are clear. No cardiomegaly. No significant pericardial effusion. ABDOMEN: LIVER: Unremarkable. Homogeneous. No focal mass. GALLBLADDER AND BILE DUCTS: Gallstones. No gallbladder wall thickening or pericholecystic fluid. No intra- or extrahepatic biliary ductal dilation. PANCREAS: Unremarkable. No focal cystic or solid mass. SPLEEN: Unremarkable. Normal size without focal cystic or solid mass. ADRENALS: Unremarkable. No nodules. KIDNEYS AND URETERS: Unremarkable. Normal renal size and position. No hydronephrosis. STOMACH AND BOWEL: Unremarkable. No stomach or bowel distention. No focal inflammatory change. PELVIS: APPENDIX: No evidence of acute appendicitis. BLADDER: Unremarkable. REPRODUCTIVE: IUD noted. ABDOMEN and PELVIS: INTRAPERITONEAL SPACE: Unremarkable. No ascites or other fluid collection. No free air. BONES/JOINTS: Unremarkable. No suspicious lytic or blastic abnormality. SOFT TISSUES: Unremarkable. No discrete abdominal or pelvic wall hernia. VASCULATURE: Unremarkable. Abdominal aorta is non-dilated. LYMPH NODES: Unremarkable. No enlarged lymph nodes. CT/Abdomen/Pelvis WITH Contrast IMPRESSION: 1. No acute findings in the abdomen or pelvis. 2. Cholelithiasis without CT evidence of gallbladder wall thickening or biliary obstruction. Electronically Signed: Mendel Johnston MD (Brooks) at 18:34 EDT , Service support ,
--- NOTE | 2021-01-07 16:25 | ED.DCSUM_ITS ---
- ER Visit Summary Date of Service: 01/07/21 Chief Complaint: [Abdominal pain] History of Present Illness: The patient is a 25 F [presents to the emergency room with complaint of abdominal pain that she woke up with this afternoon. Patient states that she is actually been having intermittent abdominal disc omfort especially about an hour after eating for about a month. She has had intermittent episodes of vomiting as well as diarrhea. Patient states that spicy foods seem to make things worse. Patient describes the pain is left upper quadrant. No radiation of the pain. She denies urinary symptoms. She said no fever. She had nausea today but no vomiting today. Patient has had history of PCOS. Patient currently on her menstrual period.] Physical Examination: [HEENT-PERRLA, EOMI. Cranial nerves II through XII grossly intact. TMs clear. Mucous membranes moist. No adenopathy. Cardiovascular-regular rate and rhythm without murmur or ectopy Lungs-clear to auscultation, chest wall stable without crepitus or subcu emphysema Abdomen-normoactive bowel sounds, soft. Patient has tenderness over the epigastric and left upper quadrant with some mild guarding. There is no rebound, rigidity, or peritoneal signs. No tenderness over McBurney's. She has a negative Rovsing's. Negative Perez sign.. Patient is morbidly obese Extremities-intact ?4, normal range of motion, normal pulses, atraumatic] Test Results: [CBC with differential obtained showing an 11.3, hemoglobin 13, hematocrit 42, platelets 505. Chemistries unremarkable. LFTs were normal. Lipase normal. Urinalysis normal. hCG was negative. CT abdomen pelvis with contrast showed cholelithiasis without evidence of cholecystitis otherwise nothing acute.] Emergency Department Course and Treatment: [Established on arrival. Patient was given 4 mg of morphine and 4 mg of Zofran.] Treatment Plan: [Patient will be started on Prevacid and given a prescription for few [place] for pain. Patient will be referred to general surgeon on-call for follow-up.] Disposition: [Discharged home in stable condition] Impression: [Abdominal pain-etiology uncertain] Cholelithiasis This note was generated with [employer] dictation software. It may contain incorrect words, spelling, and punctuation that were not noted in review of the chart prior to signing ED Disposition - Plan for ED Patient: Referrals: Xiang Ruiz [Primary Care Provider] -
[2021-01-07] MEDS: 0.9% Normal Saline 1,000 ML 125 ML IV (16:45)
[2021-01-07 16:47] LABS: Absolute Neutrophil Count 7.9 X10^3/uL (2.0-7.7); Basophil# 0.04 X10^3/uL; Basophil% 0.3 % (0-1); Eosinophil# 0.24 X10^3/uL; Eosinophils% 2.1 % (0-5); Hematocrit 41.6 % (37-47); Hemoglobin 13.4 g/dL (12.0-15.0); Lymphocyte % 24.3 % (19-41); Mean Corp Hgb Conc 32.2 g/dL (32-36); Mean Corpuscular Hgb 27.2 pg (27.0-32.0); Mean Corpuscular Volume 84.6 fL (81-99); Mean Platelet Vol. 9.3 fl (6.2-12.0); Monocyte# 0.54 X10^3/uL; Monocyte% 4.7 % (0-10); NRBC Flagged by Analyzer 0 % (0-5); Neutrophil # 7.86 X10^3/uL (2.7-7.7); Neutrophil % 68.3 % (47-70); Platelet Count 505 K/mm3 (150-450); RBC Distribution Width CV 14.2 % (11.6-14.6); RBC Distribution Width SD 43.7 fl (35.1-43.9); Red Blood Count 4.92 M/mm3 (4.2-5.4); White Blood Count 11.5 K/mm3 (4.4-11.0)
[2021-01-07] MEDS: Ondansetron 4 MG/2 ML Vial IV ×2 (16:47→19:46)
[2021-01-07] MEDS: Morphine 4 MG/ML Syringe IV ×2 (16:47→19:46)
[2021-01-07 17:21] LABS: Bacteria 0 SEEN /hpf (None Seen); Mucous, Urine 0 SEEN /hpf (<or=2+); Red Blood Cells-Urine 0 SEEN /hpf (0-5)
[2021-01-07 17:22] VITALS: BP 197/102; PULSE 83; RESP 20
[2021-01-07 17:25] LABS: Color, Urine Straw (Yellow); Glucose, Dipstick Normal (Normal); Ketone-Dipstick Negative (Negative); Leukocyte Esterase-Dipstick Negative /ul (Negative); Nitrite-Dipstick Negative (Negative); Occult Blood-Urine 25 /ul (Negative); Protein-Dipstick 100 mg/dl (Negative); Urine Bilirubin Dipstick Negative (Negative); Urine Clarity Clear (Clear); Urine Urobilinogen Normal (Normal)
[2021-01-07 17:38] LABS: Squamous Epithelial Cells - UA 0-5 SEEN /hpf (5-10); White Blood Cells 0-5 SEEN /hpf (0-5)
[2021-01-07 17:49] LABS: Internal QC Validated? YES +Cl - CLEAR BKGD; Pregnancy, Serum, hCG Quali. NEGATIVE Negative
[2021-01-07 17:56] LABS: ALB/GLOB Ratio 0.5 RATIO (0.9-2.4); AST(SGOT) 19 U/L (15-37); Alanine Aminotransfer ALT/SGPT 34 U/L (13-56); Albumin, Serum 2.9 g/dL (3.2-5.0); Alkaline Phosphatase 87 U/L (45-117); Anion Gap 7 (5-15); BUN 10 mg/dL (7-18); BUN/Creat Ratio 17.6 RATIO (10-20); Calcium,Total 8.8 mg/dL (8.5-10.1); Chloride 103 mmol/L (98-107); Creatinine, Serum 0.57 mg/dL (0.55-1.02); EST Glomerular Filtration Rate 135 mL/min (>60); Est Glom Filt Rate - Afr Amer 164 mL/min (>60); Estimated Creatinine Clearance 117.25 ml/min; Globulin 5.5 g/dL (2.2-4.2); Glucose 97 mg/dL (74-106); Lipase 96 U/L (73-393); Potassium 3.5 mmol/L (3.5-5.1); Protein, Total 8.4 g/dL (6.4-8.2); Sodium Level 136 mmol/L (136-145)
[2021-01-07 17:57] VITALS: BP 177/84; PULSE 92; RESP 20
--- NOTE | 2021-01-07 19:30 | DCINST.ED_ITS ---
ED Disposition - Plan for ED Patient: Instructions: ED Abdominal Pain Unkn Cause Fem Prescriptions: Hydrocodone Bitart/Apap 5-325 [[place] 5MG-325MG] 1 tablet PO Q4H PRN PRN 2 Days #10 tab PRN Reason: Pain Prescription Printed Lansoprazole [Prevacid] 30 mg PO DAILY #30 capsule Prescription Printed Referrals: Xiang Ruiz [Primary Care Provider] - 3-5 Days Keena Jacobo MD [STAFF PHYSICIAN] - 3-5 Days
[2021-01-07 19:48] VITALS: BP 185/111; PULSE 88; RESP 19; O2SAT 99
--- NOTE | 2021-01-07 21:44 | ED.RN ---
PT WAS SEEN HERE EARLIER TODAY FOR ABDOMINAL PAIN,STATES SHE IS BACK BECAUSE SHE IS STILL HAVING PAIN.154/138-95 -.
== END 2021-01-07 21:57 | disposition home or self-care (01) ==
LOC: ED 16:56
PROVIDERS: Emergency Provider Emergency Medicine; PCP Student in an Organized Health Care Education/Training Program
DX: R10.9 Unspecified abdominal pain (principal); K80.20 Calculus of gallbladder without cholecystitis without obstruction; E28.2 Polycystic ovarian syndrome; Z72.0 Tobacco use
CPT/HCPCS: 74177; 80053; 81001; 83605; 83690; 84703; 85025; 96361; 96365; 96374; 96375; 96376; 99283; J7030; Q9967; A4216; J2405

== ENCOUNTER 2021-01-07 21:52 | Emergency (ER) | payer MEDICAID, SELFPAY ==
[2021-01-07 16:08] VITALS: BMI 66.2
[2021-01-07 21:52] VITALS: BP 188/111; PULSE 99; RESP 18; TEMP 36.8; O2SAT 95; BMI 64.0
--- NOTE | 2021-01-07 22:13 | ED.VISSUMM ---
- ER Visit Summary Date of Service: 01/07/21 Chief Complaint: Epigastric abdominal pain History of Present Illness: The patient is a 25 F department earlier today. Patient basically had an unremarkable work-up with incidental finding of cholelithiasis on CAT scan but no signs of biliary obstruction. She was discharged home with medications states that her pain is no better possibly worse associated with nausea and vomiting which she has had since at least noon today. She denies any fever or chills. She denies any dysuria. She had previously a negative test and a negative urinalysis. Her only prior abdominal surgery was for ovarian cyst. Her earlier evaluation today CAT scan revealed no signs of acute appendicitis and or any other acute intra-abdominal pathology. Physical Examination: Young female vital signs are stable. Her initial blood pressure is elevated at 188/111. She is afebrile. H EENT exam unremarkable. Moist mucous membranes. Multiple piercings. Neck nontender no lymphadenopathy. Lungs clear to auscultation bilaterally. Heart regular rhythm rate about 95 no murmur. Abdomen morbidly obese but soft. Tender in epigastric region. No rebound, guarding or rigidity. Both the right upper quadrant right lower quadrants are unremarkable. There is no Perez sign or McBurney's point tenderness. There is no signs of obstruction. She does have positive bowel sounds. Patient is moving all 4 extremities. No edema. Neurologically she is awake and alert with no focal motor deficits. Test Results: CBC shows a white count of 14.7 was previously 11.5 several hours ago. Normal hemoglobin 13. No bands. Chemistries normal normal creatinine and gap. Liver enzymes normal. Lipase normal at 88. I did review her CAT scan that was read earlier today. Multiple repeat exam she is doing well. She was given a second dose of morphine. Also Protonix. On repeat abdominal exam all the pain is epigastric and mild left upper quadrant. There is no right upper quadrant abdominal pain. There is no peritoneal signs. There is no Perez sign. There is no McBurney's point tenderness. There is no signs of obstruction. She is improving with medications. On her prior CAT scan there was incidental finding of gallstones but she has no signs of biliary obstruction or acute cholecystitis. Emergency Department Course and Treatment: Patient with epigastric abdominal pain. Had a thorough evaluation several hours ago. Basically at that time an unremarkable work-up. She will be treated with IV fluids, morphine and Zofran for pain and nausea. I will repeat some labs. I have personally will review her CAT scan I do not think she needs additional imaging at this time unless labs would indicate otherwise. Treatment Plan: [] Disposition: Discharge Impression: Acute epigastric abdominal pain of uncertain etiology Incidental finding on prior evaluation of gallstones. This note was generated with [employer] dictation software. It may contain incorrect words, spelling, and punctuation that were not noted in review of the chart prior to signing ED Disposition - Plan for ED Patient: Referrals: Xiang Ruiz [Primary Care Provider] -
[2021-01-07] MEDS: Morphine 4 MG/ML Syringe 6 MG IV (22:35)
[2021-01-07] MEDS: 0.9% Normal Saline 1,000 ML 1000 ML IV (22:37)
[2021-01-07] MEDS: Ondansetron 4 MG/2 ML Vial IV (22:37)
[2021-01-07 22:43] LABS: Absolute Lymphocyte Count 1.87 X10^3/uL (0.83-4.51); Basophil# 0.04 X10^3/uL; Basophil% 0.3 % (0-1); Eosinophil# 0.12 X10^3/uL; Eosinophils% 0.8 % (0-5); Hematocrit 41.6 % (37-47); Hemoglobin 13.1 g/dL (12.0-15.0); Lymphocyte # 1.87 X10^3/ul (4.0); Lymphocyte % 12.7 % (19-41); Mean Corp Hgb Conc 31.5 g/dL (32-36); Mean Corpuscular Hgb 27.2 pg (27.0-32.0); Mean Corpuscular Volume 86.3 fL (81-99); Mean Platelet Vol. 9.1 fl (6.2-12.0); Monocyte# 0.57 X10^3/uL; Monocyte% 3.9 % (0-10); NRBC Flagged by Analyzer 0 % (0-5); Neutrophil # 12.04 X10^3/uL (2.7-7.7); Neutrophil % 81.8 % (47-70); Platelet Count 478 K/mm3 (150-450); RBC Distribution Width CV 14.3 % (11.6-14.6); Red Blood Count 4.82 M/mm3 (4.2-5.4); White Blood Count 14.7 K/mm3 (4.4-11.0)
[2021-01-07 22:58] LABS: ALB/GLOB Ratio 0.6 RATIO (0.9-2.4); AST(SGOT) 31 U/L (15-37); Alanine Aminotransfer ALT/SGPT 39 U/L (13-56); Albumin, Serum 3.2 g/dL (3.2-5.0); Alkaline Phosphatase 96 U/L (45-117); Anion Gap 7 (5-15); BUN 9 mg/dL (7-18); BUN/Creat Ratio 13.3 RATIO (10-20); Calcium,Total 8.8 mg/dL (8.5-10.1); Chloride 104 mmol/L (98-107); Creatinine, Serum 0.68 mg/dL (0.55-1.02); EST Glomerular Filtration Rate 111 mL/min (>60); Est Glom Filt Rate - Afr Amer 135 mL/min (>60); Globulin 5.5 g/dL (2.2-4.2); Glucose 123 mg/dL (74-106); Lipase 88 U/L (73-393); Potassium 3.5 mmol/L (3.5-5.1); Protein, Total 8.7 g/dL (6.4-8.2); Sodium Level 137 mmol/L (136-145)
[2021-01-07] MEDS: morphine 8 MG/ML Syringe 6 MG IV (23:38)
[2021-01-08 00:17] VITALS: PULSE 87; RESP 16; O2SAT 93
--- NOTE | 2021-01-08 00:30 | ED.DEP ---
ED Disposition - Plan for ED Patient: Disposition: Home or Assisted Living Instructions: ED Abdominal Pain Unkn Cause Fem Referrals: Xiang Ruiz [Primary Care Provider] - 3-5 Days if not improving Additional Instructions: Use the medications as prescribed. Follow-up with your doctor if not improving. Your labs are basically unremarkable and your CAT scan showed incidental finding of gallstones in your gallbladder but that may not even be was causing your pain. This very well may be inflammation of your stomach called gastritis.
[2021-01-08 01:06] VITALS: BP 164/80; PULSE 83; RESP 18; O2SAT 97
== END 2021-01-08 01:07 | disposition home or self-care (01) ==
PROVIDERS: Emergency Provider Emergency Medicine; PCP Student in an Organized Health Care Education/Training Program
DX: R10.13 Epigastric pain (principal); K80.20 Calculus of gallbladder without cholecystitis without obstruction; Z72.0 Tobacco use; E28.2 Polycystic ovarian syndrome
CPT/HCPCS: 74177; 80053; 81001; 83605; 83690; 84703; 85025; 99283; J7030; J7040; Q9967; A4216; J2405; J3490

== ENCOUNTER 2021-01-09 17:05 | Emergency (ER) | payer MEDICAID, SELFPAY ==
[2021-01-09 17:06] VITALS: BP 156/87; PULSE 110; RESP 19; TEMP 37.6; O2SAT 94; BMI 64.0
--- NOTE | 2021-01-09 17:43 | US_ITS ---
STUDY: ABDOMINAL ULTRASOUND - RIGHT UPPER QUADRANT REASON FOR VISIT: Female, 25 years old RUQ pain N AND V TECHNIQUE: Ultrasound evaluation of the right upper quadrant was performed with real-time and static -scale imaging. TECHNICAL QUALITY: Adequate. COMPARISON: None. FINDINGS: Liver: The liver measures 24.6 cm. There is diffusely increased echogenicity of the liver. The bile ducts are within normal limits. There is hepatic color flow. The direction of portal flow is hepatopetal. There is no demonstrated mass lesion. Gallbladder: Normal distended gallbladder. The gallbladder wall measures 4 mm. There is a positive sonographic Perez''s sign. There is no pericholecystic fluid. There are multiple gallstones. Common Bile Duct (C.B.D.): The common bile duct measures 7 mm. Pancreas: Not visualized which may be due to bowel gas producing artifact. Right Kidney: Normal size of the right kidney. The right kidney measures 13.6 x 6.9 x 6.1 cm. Normal renal cortex. The right cortex measures 2 cm. There is no demonstrated renal mass or cyst. There is no right hydronephrosis. US/Gallbladder IMPRESSION: Enlarged fatty infiltrated liver. Cholelithiasis and findings suspicious for acute cholecystitis. Mildly dilated common bile duct without intraductal stones MRI/MRCP would be helpful for further evaluation if clinically warranted Electronically Signed: Marty Figueredo MD at 19:58 EDT , Service support ,
--- NOTE | 2021-01-09 17:43 | US_ITS ---
STUDY: ULTRASOUND TRANSVAGINAL CLINICAL: Female, 25 years old. RT pelvic pain, hx ovarian cyst TECHNIQUE: Transvaginal COMPARISON: 02/21/2018 FINDINGS: Normal uterine size measuring 7 x 4.3 x 3.5 cm in maximal craniocaudal dimension. There are no myometrial masses. Normal endometrial thickness measuring 3 mm. There are no endometrial masses, and there is no fluid in the endometrial cavity. Normal uterine cervix. Normal right ovary, measuring 6.1 x 4 x 2.8 cm. There are multiple cysts the largest measuring 3.3 x 3.2 x 2.4 cm Normal left ovary, measuring 2.4 x 2.1 x 1.7 cm. There are multiple follicles without a dominant cyst. There is moderate to large amount free fluid in the pelvis. US/Transvaginal Non- IMPRESSION: Multiple right ovarian cysts the largest measuring 3.3 x 3.2 x 2.4 cm with moderate amount of fluid in the cul-de-sac possibly due to recent ovulation Electronically Signed: Marty Figueredo MD at 20:56 EDT , Service support ,
[2021-01-09 18:21] LABS: Absolute Lymphocyte Count 1.95 X10^3/uL (0.83-4.51); Absolute Neutrophil Count 14.3 X10^3/uL (2.0-7.7); Basophil# 0.03 X10^3/uL; Basophil% 0.2 % (0-1); Eosinophil# 0.06 X10^3/uL; Eosinophils% 0.3 % (0-5); Hematocrit 42.6 % (37-47); Hemoglobin 13.3 g/dL (12.0-15.0); Lymphocyte # 1.95 X10^3/ul (4.0); Mean Corp Hgb Conc 31.2 g/dL (32-36); Mean Corpuscular Hgb 26.3 pg (27.0-32.0); Mean Corpuscular Volume 84.2 fL (81-99); Mean Platelet Vol. 9.3 fl (6.2-12.0); Monocyte# 1.34 X10^3/uL; Monocyte% 7.5 % (0-10); NRBC Flagged by Analyzer 0 % (0-5); Neutrophil # 14.33 X10^3/uL (2.7-7.7); Neutrophil % 80.5 % (47-70); Platelet Count 503 K/mm3 (150-450); RBC Distribution Width CV 14.5 % (11.6-14.6); RBC Distribution Width SD 44.2 fl (35.1-43.9); Red Blood Count 5.06 M/mm3 (4.2-5.4); White Blood Count 17.8 K/mm3 (4.4-11.0)
[2021-01-09 18:39] LABS: AST(SGOT) 39 U/L (15-37); Alanine Aminotransfer ALT/SGPT 33 U/L (13-56); Albumin, Serum 2.7 g/dL (3.2-5.0); Alkaline Phosphatase 89 U/L (45-117); Anion Gap 6 (5-15); BUN 5 mg/dL (7-18); BUN/Creat Ratio 7.8 RATIO (10-20); Bilirubin, Direct 0.19 mg/dL (0.00-0.30); Calcium,Total 9.2 mg/dL (8.5-10.1); Chloride 97 mmol/L (98-107); Creatinine, Serum 0.64 mg/dL (0.55-1.02); EST Glomerular Filtration Rate 118 mL/min (>60); Est Glom Filt Rate - Afr Amer 143 mL/min (>60); Estimated Creatinine Clearance 109.22 ml/min; Globulin 6.2 g/dL (2.2-4.2); Glucose 111 mg/dL (74-106); Lipase 76 U/L (73-393); Potassium 4.3 mmol/L (3.5-5.1); Protein, Total 8.9 g/dL (6.4-8.2); Sodium Level 132 mmol/L (136-145)
[2021-01-09] MEDS: Ondansetron 4 MG/2 ML Vial IV (18:43)
[2021-01-09] MEDS: Morphine 4 MG/ML Syringe IV ×2 (18:43→20:26)
[2021-01-09] MEDS: 0.9% Normal Saline 1,000 ML 1000 ML IV (18:45)
[2021-01-09 19:46] VITALS: BP 168/85; PULSE 128; RESP 20; TEMP 38.4; O2SAT 92
[2021-01-09 19:50] LABS: Internal QC Validated? YES +Cl - CLEAR BKGD; Pregnancy, Serum, hCG Quali. NEGATIVE Negative
[2021-01-09 19:53] LABS: Color, Urine Yellow (Yellow); Glucose, Dipstick Normal (Normal); Ketone-Dipstick 5 mg/dl (Negative); Leukocyte Esterase-Dipstick 25 /ul (Negative); Nitrite-Dipstick Negative (Negative); Occult Blood-Urine 150 /ul (Negative); Protein-Dipstick 500 mg/dl (Negative); Red Blood Cells-Urine 0 SEEN /hpf (0-5); Urine Bilirubin Dipstick Negative (Negative); Urine Clarity Clear (Clear); Urine Urobilinogen Normal (Normal)
[2021-01-09 20:05] LABS: Amorphous Sediment 1+; Bacteria 4+ /hpf (None Seen); Mucous, Urine 3+ /hpf (<or=2+); Squamous Epithelial Cells - UA 0-5 SEEN /hpf (5-10); White Blood Cells 0-5 SEEN /hpf (0-5)
[2021-01-09] MEDS: Acetaminophen 500 MG Tablet 1000 MG PO (20:26)
[2021-01-09 20:46] VITALS: BP 146/93; PULSE 123; RESP 20; TEMP 36.9; O2SAT 96
--- NOTE | 2021-01-09 20:48 | ED.RN ---
[facility] CALLED FOR TRANSFER THEY ARE FULL AT THIS TIME
--- NOTE | 2021-01-09 21:02 | ED.RN ---
[facility] CALLED FOR TRANSFER THEY ARE UNABLE TO ACCEPT AT THIS TIME THEY ARE FULL
[2021-01-09 21:46] VITALS: BP 130/83; PULSE 109; RESP 20; TEMP 37.4; O2SAT 96
--- NOTE | 2021-01-09 21:53 | CON.PCM_ITS ---
Problem List (1) Acute cholecystitis Status: Acute (2) Morbid obesity with BMI of 60.0-69.9, adult Status: Acute Reason for Consult Date of Consultation: 01/09/21 History of Present Illness: The patient is a 25 year old F here with abdominal pain. The patient was here 2 days ago with abdominal pain and at that time had a CT scan which did not show stranding around the gallbladder. At that time her white count was 11. Patient returns today with abdominal pain. Past Medical History Medical History: Medical History (Last Reviewed 05/08/18 @ 11:50 by Amanda Watts) Bilateral ovarian cysts (Acute) N83.201, N83.202 recommend laparoscopic ovarian cystectomy PCOS (polycystic ovarian syndrome) (Acute) E28.2 Mirena IUD Anxiety and depression F41.9, F32.9 Allergies No Known Allergies Allergy (Verified 01/09/21 17:05) Home Medications: Ambulatory Orders Medication Instructions Recorded albuterol sulfate 90 mcg/actuation 2 puff INHALATION Q6H PRN 05/08/18 breath activated powder inhaler gabapentin 100 mg capsule 300 mg PO TID 05/08/18 Ibuprofen [Motrin] 800 mg PO Q8H PRN PRN 02/26/20 Naproxen [Naprosyn] 500 mg PO BID PRN #20 tab 02/26/20 Baclofen [Lioresal] 10 mg PO TID 01/07/21 Lansoprazole [Prevacid] 30 mg PO DAILY #30 capsule 01/07/21 Surgical History: Surgical History (Last Reviewed 05/08/18 @ 11:50 by Amanda Watts) History of ear, nose, and throat (ENT) surgery Z98.890 History of tonsillectomy Z90.89 S/P laparoscopic procedure Z98.890 bilateral cystectomy salpingectomy corrective eye surgery Smoking Status: Current every day smoker Review of Systems Constitutional: Reports: Chills, Fever HEENT: Denies: Difficulty Swallowing Cardiovascular: Denies: Chest Pain Respiratory: Denies: Cough, Shortness of Breath Gastrointestinal: Reports: Abdominal Pain, Nausea, Vomiting. Denies: Hematemesis, Hematochezia Musculoskeletal: Denies: Joint Tenderness Hematologic/ Lymphatic: Denies: Anemia - Physical Exam Vitals/I&O's: Vital Signs Temp Pulse Resp BP Pulse Ox 98.5 F 123 H 20 H 146/93 H 96 01/09/21 20:46 01/09/21 20:46 01/09/21 20:46 01/09/21 20:46 01/09/21 20:46 Oxygen Flow Rate (L/min) 2 Oxygen Delivery Method Nasal Cannula Weight: 361 lb 8.929 oz Body Mass Index (BMI) 64.0 Intake and Output for Last 24 Hours 01/07/21 01/08/21 01/09/21 23:59 23:59 23:59 Intake Total 1000 / 1000 Balance 1000 / 1000 General: Alert, Oriented x3 Neck: No JVD Lungs: Normal air movement Cardiovascular: Tachycardic Abdomen: Soft, Obese, Tender - Tender in epigastric region Musculoskeletal: No Muscle Wasting Microbiology Past 72 Hours 01/09/21 20:33 Nasal Secretion SARS-CoV-2 Antigen (Rapid) - Final Laboratory Results 01/09/21 18:05: WBC 17.8 H, RBC 5.06, Hgb 13.3, Hct 42.6, MCV 84.2, MCH 26.3 L, MCHC 31.2 L, RDW Std Deviation 44.2 H, RDW Coeff of Servando 14.5, Plt Count 503 H, MPV 9.3, Immature Gran % (Auto) 0.500, Neut % (Auto) 80.5 H, Lymph % (Auto) 11.0 L, [place] % (Auto) 7.5, Eos % (Auto) 0.3, Baso % (Auto) 0.2, Absolute Neuts (auto) 14.3 H, Absolute Lymphs (auto) 1.95, Nucleated RBC % 0 01/09/21 18:05: Sodium 132 L, Potassium 4.3, Chloride 97 L, Carbon Dioxide 29.0, Anion Gap 6, BUN 5 L, Creatinine 0.64, Estim Creat Clear Calc 109.22, Est GFR (MDRD) Af Amer 143, Est GFR (MDRD) Non-Af 118, BUN/Creatinine Ratio 7.8 L, Glucose 111 H, Calcium 9.2, Total Bilirubin 1.60 H, Direct Bilirubin 0.19, AST 39 H, ALT 33, Alkaline Phosphatase 89, Total Protein 8.9 H, Albumin 2.7 L, Globulin 6.2 H, Lipase 76 01/09/21 19:33: Serum , Qual NEGATIVE 01/09/21 19:44: Urine Color Yellow, Urine Clarity Clear, Urine pH 6.0, Ur Specific [place] 1.020, Urine Protein 500 H, Urine Glucose (UA) Normal, Urine Ketones 5 H, Urine Occult Blood 150 H, Urine Nitrite Negative, Urine Bilirubin Negative, Urine Urobilinogen Normal, Ur Leukocyte Esterase 25 H, Urine RBC 0 SEEN, Urine WBC 0-5 SEEN, Ur Squamous Epith Cells 0-5 SEEN, Amorphous Sediment 1+, Urine Bacteria 4+, Urine Mucus 3+ 01/09/21 21:46: Lactic Acid Pending Clinical Impression(s) from Imaging Studies Gallbladder Ultrasound 01/09/21 17:43 IMPRESSION: Enlarged fatty infiltrated liver. Cholelithiasis and findings suspicious for acute cholecystitis. Mildly dilated common bile duct without intraductal stones MRI/MRCP would be helpful for further evaluation if clinically warranted Electronically Signed: Marty Figueredo MD at 19:58 EDT , Service support , Transvaginal US 01/09/21 17:43 IMPRESSION: Multiple right ovarian cysts the largest measuring 3.3 x 3.2 x 2.4 cm with moderate amount of fluid in the cul-de-sac possibly due to recent ovulation Electronically Signed: Marty Figueredo MD at 20:56 EDT , Service support , Current Medications Piperacillin Sod/Tazobactam (Sod 4.5 gm/ Sodium Chloride) 100 mls @ 200 mls/hr IV X1 ONE Stop: 01/09/21 22:07 Assessment/Plan All Active Problems (Last Reviewed 05/08/18 @ 11:50 by Amanda Watts) Acute cholecystitis (Acute) Morbid obesity with BMI of 60.0-69.9, adult (Acute) Postoperative cellulitis of surgical wound (Acute) Serous cystadenoma (Acute) Acute pelvic pain, female (Acute) Bilateral ovarian cysts (Acute) PCOS (polycystic ovarian syndrome) (Acute) 25-year-old female with acute cholecystitis and morbid obesity 1. The patient likely has acute cholecystitis. She has what appears to be early sepsis as well as thickening of the gallbladder wall and cholelithiasis. She has mildly elevated bilirubin as well. Due to her severe morbid obesity I do not believe I would be able to perform laparoscopic cholecystectomy at this hospital with lack of bariatric instruments and I recommended transfer to an outside hospital. Transfer is becoming difficult due to saturation of outside hospitals and inability to transfer patients. The emergency room doctor is working on a transfer to get her to a bariatric center but if this is not possible as a backup plan I did propose to her admission to the hospital and placement of cholecystostomy tube. I explained her that she would be able to have cholecystectomy at a later date at a bariatric center after placement of cholecystostomy tube and resolution of infection. The patient understands her options and would like transfer if possible but is willing to proceed with cholecystostomy tube if transfer is unavailable. I explained the increased risk of morbidity with surgery due to her length of acute cholecystitis being over 3 days as well as her morbid obesity. The patient understands as does her mother who is in the room. Michael Douglas MD Pager: [facility] [address] [place] [address] [address] [place] [address] Office:
--- NOTE | 2021-01-09 21:55 | ED.RN ---
[facility] CALLED FOR TRANSFER, THEIR BEDS ARE FULL AT THIS TIME
--- NOTE | 2021-01-09 22:05 | ED.RN ---
[facility] CALLED FOR TRANSFER ALL THERE BEDS ARE FULL AT THIS TIME
--- NOTE | 2021-01-09 22:06 | ED.RN ---
[facility] CALLED FOR TRANSFER THEY ARE PAGING THEIR SURGEON ON THIS TIME
--- NOTE | 2021-01-09 22:21 | ED.RN ---
[facility] DENIED PATIENT AT THIS TIME
[2021-01-09 22:25] LABS: Lactic Acid 0.9 mmol/L (0.4-1.9)
--- NOTE | 2021-01-09 22:25 | ED.RN ---
[facility] CALLED FOR TRANSFER THEY ARE FULL AT THIS TIME
--- NOTE | 2021-01-09 22:25 | ED.RN ---
[facility] CALLED FOR TRANSFER
[2021-01-09 22:46] VITALS: BP 126/63; PULSE 105; RESP 18; TEMP 37.7; O2SAT 97
--- NOTE | 2021-01-09 22:56 | ED.RN ---
[facility] CALLED FOR TRANSPORT ETA 90 MINS
--- NOTE | 2021-01-09 23:27 | ED.DCSUM_ITS ---
- ER Visit Summary Date of Service: 01/09/21 Chief Complaint: Abdominal pain History of Present Illness: The patient is a 25 F presenting with abdominal pain. Patient states this has been ongoing over the past 3 days. She was seen in the ED twice on Saturday. At that time she had a CT scan which showed c holelithiasis without evidence of cholecystitis. She states her pain continues to worsen. She was given [place] initially but has run out of that medication. She has nausea and vomiting. She has vomited x3 today. She denies diarrhea or constipation. Denies urinary complaints. Physical Examination: Vitals are stable. Temperature 99.8, heart rate 105. Alert no acute distress. HEENT exam is unremarkable. Neck is supple. Lungs are clear and equal bilaterally. Heart is regular tachycardic Abdomen is soft obese, right upper and right lower quadrant tenderness. Voluntary guarding, no rebound Extremities are unremarkable. Skin is warm and dry. Remainder of exam is unremarkable. Emergency Department Course and Treatment: Patient given IV fluids, morphine, Zofran. She later developed a fever and was given Tylenol. Gallbladder ultrasound shows Enlarged fatty infiltrated liver. Cholelithiasis and findings suspicious for acute cholecystitis. Mildly dilated common bile duct without intraductal stones. MRI/MRCP would be helpful for further evaluation if clinically warranted. Pelvic ultrasound shows Multiple right ovarian cysts the largest measuring 3.3 x 3.2 x 2.4 cm with moderate amount of fluid in the cul-de-sac possibly due to recent ovulation. CBC shows white count 17.8, previous was 11.5. Chemistries show sodium 132, glucose 111. Total bili 1.6, previous was 0.4. AST 39. Lipase is normal. Urinalysis unremarkable. Lactic acid is normal. hCG negative. Covid negative. Discussed with Dr. Douglas. Due to patient's BMI of 64, it is felt she should be transferred to a tertiary care center. Patient is agreeable with this plan. [facility], [facility], and [facility] are currently full. Patient is agreeable to transfer to [facility]. Discussed with [facility] for transfer. Disposition: Transfer Impression: Acute cholecystitis, morbid obesity This note was generated with [employer] software. It may contain incorrect words, spelling, and punctuation that were not noted in review of the chart prior to signing ED Disposition - Plan for ED Patient: Referrals: Xiang Ruiz [Primary Care Provider] -
[2021-01-09 23:46] VITALS: BP 148/76; PULSE 107; RESP 22; TEMP 37; O2SAT 99
[2021-01-10 00:46] VITALS: BP 135/83; PULSE 110; RESP 20; TEMP 36.9; O2SAT 96
--- NOTE | 2021-01-10 01:10 | ED.RN ---
physicians ambulance called they are about 5 more minutes
== END 2021-01-10 01:40 | disposition short-term general hospital (02) ==
LOC: ED 17:44
PROVIDERS: Emergency Provider Emergency Medicine; PCP Student in an Organized Health Care Education/Training Program
DX: K81.0 Acute cholecystitis (principal); E66.01 Morbid (severe) obesity due to excess calories; Z68.44 Body mass index [BMI] 60.0-69.9, adult; E28.2 Polycystic ovarian syndrome; F17.200 Nicotine dependence, unspecified, uncomplicated
CPT/HCPCS: 76705; 76830; 80048; 80076; 81001; 83605; 83690; 84703; 85025; 87426; 96361; 96365; 96374; 96375; 96376; 99285; J7030; A4216; J2405

== ENCOUNTER 2022-02-13 11:34 | Emergency (ER) | payer MEDICAID, SELFPAY ==
[2022-02-13 11:35] VITALS: BP 119/82; PULSE 90; RESP 18; TEMP 36.6; O2SAT 96; BMI 62.4
--- NOTE | 2022-02-13 12:13 | CT_ITS ---
STUDY: CT MAXILLOFACIAL SINUSES REASON FOR EXAM: Female, 26 years old. Facial swelling on left. Ear infection RADIATION DOSAGE (If Supplied By Facility): CTDIvol = ( 29.38 ) mGy, DLP = ( 532.76 ) mGycm TECHNIQUE: The patient was scanned in a multi detector CT scanner. High resolution axial imaging was performed without the administration of intravenous contrast material. Sagittal and coronal images were reconstructed. Individualized dose optimization techniques were used for this CT. COMPARISON: None. FINDINGS: Small benign-appearing submental lymph nodes. FRONTAL SINUSES: Normal aeration, without mucosal inflammatory disease. ETHMOIDAL SINUSES: Normal aeration, without mucosal inflammatory disease. MAXILLARY SINUSES: Normal aeration, without mucosal inflammatory disease. SPHENOIDAL SINUSES: Normal aeration, without mucosal inflammatory disease. There is patency of the bilateral maxillary infundibuli with normal uncinate processes, ethmoid bullae, and hiatus semilunaris. Normal bilateral middle turbinates. Normal bilateral inferior turbinates. Normal midline nasal septum. There is patency of the bilateral nasal airways. The visualized osseous structures are normal. The visualized bilateral orbital contents are normal. CT/Sinus/Facial Bone IMPRESSION: Small submental lymph nodes. Electronically Signed: Rosalio Schwab MD at 13:11 EDT ,
--- NOTE | 2022-02-13 12:14 | EDS_ITS ---
HPI History of Present Illness Chief Complaint: Ear Problem Informant: patient Onset/Context/Timing Onset: Days Context: Gradual Onset Current Severity: Moderate Maximum Severity: Moderate Narrative Narrative: Patient presents secondary to left ear pain and facial pain. She reports developing left ear pain 1 week ago. She was seen at an urgent care over the weekend diagnosed with an ear infection. She was started on amoxicillin. She reports no improvement in her symptoms and reports more pain around her eye with some facial swelling. She had a subjective fever last evening but did not measure it. She has had nausea. [facility] Medical History (Updated 02/13/22 @ 14:[address] Elyssa Garza MD) Anxiety and depression Bilateral ovarian cysts PCOS (polycystic ovarian syndrome) Home Medications albuterol sulfate 90 mcg/actuation breath activated powder inhaler 2 puff INHALATION Q6H PRN 05/08/18 [History Last Taken Unknown] gabapentin 100 mg capsule 300 mg PO TID 05/08/18 [History Last Taken Unknown] ibuprofen 800 mg PO Q8H PRN PRN 02/26/20 [History Last Taken Unknown] naproxen 500 mg PO BID PRN #20 tab 02/26/20 [Rx Last Taken Unknown] baclofen 10 mg PO TID 01/07/21 [History Last Taken Unknown] lansoprazole 30 mg PO DAILY #30 capsule 01/07/21 [Rx Last Taken Unknown] ondansetron 4 mg PO Q8H PRN #10 tab 02/13/22 [Rx Last Taken Unknown] Allergy/AdvReac Type Severity Reaction Status Date / Time No Known Allergies Allergy Verified 02/13/22 11:37 Family History Mother Diabetes Kidney disease Surgical History corrective eye surgery History of ear, nose, and throat (ENT) surgery History of tonsillectomy S/P laparoscopic procedure Social History Smoking Status: Current every day smoker tobacco type: cigarettes alcohol intake: never substance use type: does not use caffeine: No what type of physical activity do you participate in: walking seatbelt use: always do you feel safe at home: Yes additional social history: [employer] Patient is unemployed ROS ROS ED Constitutional Constitutional ED: Reports fever(s) and subjective; Denies chills Eyes Eyes: Denies change in vision ENT ENT ED: Reports ear pain left; Denies sore throat Cardiovascular Cardiovascular: Denies chest pain Respiratory/Chest Respiratory/Chest: Denies cough or dyspnea Gastrointestinal Gastrointestinal: Reports nausea and vomiting; Denies abdominal pain or diarrhea Genitourinary Genitourinary ED: Denies dysuria Musculoskeletal Musculoskeletal: Denies back pain Integumentary Denies rash Neurologic Neurologic: Reports headache(s); Denies weakness Allergic/Immunologic Allergic/Immunologic ED: Denies urticaria EXAM Physical Exam Const Vital Signs: 02/13/22 11:35 02/13/22 13:37 Temperature 98 F Temperature Source Temporal Pulse Rate 90 71 Respiratory Rate 18 16 Blood Pressure 119/82 H 163/92 H Blood Pressure Mean 94 115 Pulse Ox 96 95 Oxygen Delivery Method Room Air Room Air Positive obese Nutritional Appearance: obese HEENT Reports TM's clear and moist mucous membranes HEENT Narrative: Left frontal and maxillary sinus tenderness outpatient. Mild left facial edema. No significant erythema. Tympanic Membrane ED: Yes TM's clear Eyes PERRL and EOMs intact bilaterally Neck supple Chest Wall inspection of chest normal and palpation of chest normal Resp normal respiratory effort and clear to auscultation bilaterally Cardio regular rate and regular rhythm GI non-tender Palpation: soft Extremity normal to inspection Neuro oriented x3 Sensorium / Orientation: alert Psych mental status grossly normal Skin no rashes or lesions noted MDM MDM MDM Narrative Medical decision making narrative: Patient given Toradol and Zofran for pain and nausea. CT scan of the facial bones obtained. Radiography Diagnostic Testing: Clinical Impression(s) from Imaging Studies Facial/Sinus 02/13/22 12:13 IMPRESSION: Small submental lymph nodes. Electronically Signed: Rosalio Schwab MD at 13:11 EDT , Treatment and Re-Evaluation Narrative: CT scan shows small subsegmental lymph nodes. No evidence of sinusitis. Ear appears normal. Orbit appears normal. Test results discussed with the patient. She will continue the full course of antibiotics. I will also write her for some Zofran. Return instructions provided. Discharge Plan Triage Chief Complaint: Ear Problem ED Provider: Elyssa Garza Dx/Rx/DC Orders Clinical Impression: Left facial pain, Nausea Instructions: ED Pain, Acute, Uncertain Cause, ED Vomiting (Adult) Prescriptions: New ondansetron 4 mg tablet,disintegrating 4 mg PO Q8H PRN (Reason: nausea and vomiting) Qty: 10 RF: 0 No Action gabapentin 100 mg capsule 300 mg PO TID RF: 0 albuterol sulfate 90 mcg/actuation aerosol powdr breath activated 2 puff INHALATION Q6H PRN (Reason: Sob &/Or Wheezing) RF: 0 ibuprofen 800 MG tablet 800 mg PO Q8H PRN PRN (Reason: Pain Or Fever) RF: 0 naproxen 500 MG tablet 500 mg PO BID PRN Qty: 20 RF: 0 baclofen 10 MG tablet 10 mg PO TID RF: 0 lansoprazole 30 MG capsule 30 mg PO DAILY Qty: 30 RF: 0 Primary Care Provider: Xiang Ruiz Referrals: Xiang Ruiz [Primary Care Provider] - 1-2 Weeks Disposition Disposition: Home, Self Care
[2022-02-13] MEDS: Ondansetron ODT 4 MG Tablet 8 MG PO (12:19)
[2022-02-13] MEDS: Ketorolac 60 MG/2 ML Vial IM (12:19)
[2022-02-13 13:37] VITALS: BP 163/92; PULSE 71; RESP 16; O2SAT 95
== END 2022-02-13 14:12 | disposition home or self-care (01) ==
PROVIDERS: Emergency Provider Emergency Medicine; PCP Student in an Organized Health Care Education/Training Program; Visit Provider Emergency Medicine
DX: R11.0 Nausea (principal); H92.02 Otalgia, left ear; R51.9 Headache, unspecified; F41.9 Anxiety disorder, unspecified; F32.A Depression, unspecified; E28.2 Polycystic ovarian syndrome; Z79.899 Other long term (current) drug therapy; F17.210 Nicotine dependence, cigarettes, uncomplicated
CPT/HCPCS: 70486; 96372; 99283

== ENCOUNTER 2023-08-25 21:59 | Emergency (ER) | payer MEDICAID, SELFPAY ==
[2023-08-25 22:00] VITALS: BP 177/89; BP 205/140; PULSE 114; PULSE 70; RESP 16; RESP 22; TEMP 36.8; O2SAT 98; O2SAT 99; BMI 59.3
--- NOTE | 2023-08-25 22:35 | CT_ITS ---
INDICATION: R flank pain EXAMINATION: CT Abdomen And Pelvis W/O Contrast Injection TECHNIQUE: Helically acquired images were obtained of the abdomen and pelvis with sagittal and coronal reconstructed images. Individualized dose optimization techniques were used for this CT. IV contrast dosage and agent: None. Oral contrast: None. COMPARISON: 01/07/2021 CT. FINDINGS: VESSELS: No abdominal aortic aneurysm. LIVER: No intrahepatic or extrahepatic biliary duct dilation. GALLBLADDER: No calcified stones. No evidence of cholecystitis. PANCREAS: No focal solid or cystic mass. No evidence of pancreatitis. SPLEEN: Normal. ADRENAL GLANDS: Normal. KIDNEYS AND URETERS: Right renal stones. Mild right hydronephrosis and hydroureter. Right perinephric stranding. 2 mm stone in the proximal right ureter, at the ureteropelvic junction. URINARY BLADDER: Unremarkable. BOWEL: No evidence of diverticulosis or diverticulitis. Appendix appears normal. No evidence of bowel obstruction. REPRODUCTIVE ORGANS: IUD within the uterus. PERITONEUM: No intraabdominal free fluid or free air. LYMPH NODES: No pathologically enlarged mesenteric or retroperitoneal lymph nodes. ABDOMINAL WALL: No abdominal or pelvic wall hernia. BONES: No acute abnormality. LOWER CHEST: Visualized lung bases are unremarkable. CT/Abdomen/Pelvis without Cont IMPRESSION: 1. 2 mm stone in the proximal right ureter, at the ureteropelvic junction, with mild right hydronephrosis. 2. Bilateral renal stones. Electronically Signed: Marty Haider DO at 0:21 EST ,
--- NOTE | 2023-08-25 22:42 | ED.VIS.GI ---
HPI HPI - GI History of Present Illness Chief Complaint: Abd Pain Informant: patient Narrative Narrative: Relatively sudden onset right flank pain. 1 or 2 hours ago associated with nausea and vomiting, pain is somewhat colicky. Radiates to her back a little. No groin or lower pelvic pain like she had in the past with ovarian cysts issues. No trouble urinating. Normal bowel movements. No fevers or chills. No cough or shortness of breath. No recent fall or injury. Never had this before no history of kidney stones. [facility] Medical History Anxiety Anxiety and depression Asthma Bilateral ovarian cysts Depression Diabetes Kidney stones Migraines PCOS (polycystic ovarian syndrome) Home Medications albuterol sulfate 90 mcg/actuation breath activated powder inhaler 2 puff inhalation Q6H PRN Sob &/Or Wheezing 05/08/18 [History Last Taken Unknown] ibuprofen 800 mg tablet 800 mg PO Q8H PRN PRN Pain Or Fever 02/26/20 [History Last Taken Unknown] baclofen 10 mg tablet 10 mg PO TID PRN muscle spasm 01/07/21 [History Last Taken Unknown] biotin 5,000 mcg disintegrating tablet 10,000 mcg PO DAILY 08/25/23 [History Last Taken Unknown] dulaglutide 0.75 mg/0.5 mL subcutaneous pen injector (Trulicity) 0.75 mg subcut Q7D 08/25/23 [History Last Taken Unknown] meloxicam 15 mg tablet 15 mg PO DAILY 08/25/23 [History Last Taken Unknown] metformin 1,000 mg tablet 1,000 mg PO BID 08/25/23 [History Last Taken Unknown] valacyclovir 500 mg tablet 500 mg PO DAILY herpies flair 08/25/23 [History Last Taken Unknown] ondansetron 4 mg disintegrating tablet 8 mg (2 x 4 mg) PO Q8H PRN PRN Nausea #20 tabs 08/26/23 [Rx Last Taken Unknown] oxycodone-acetaminophen 5 mg-325 mg tablet (Percocet) 1 tab PO Q6H PRN pain 3 days #12 tabs 08/26/23 [Rx Last Taken Unknown] Allergy/AdvReac Type Severity Reaction Status Date / Time No Known Allergies Allergy Verified 08/25/23 22:00 Family History Mother Diabetes Kidney disease Surgical History corrective eye surgery History of cholecystectomy History of ear, nose, and throat (ENT) surgery History of tonsillectomy S/P laparoscopic procedure Social History Smoking Status: Never smoker alcohol intake: never substance use type: does not use caffeine: No what type of physical activity do you participate in: walking seatbelt use: always do you feel safe at home: Yes additional social history: [employer] Patient is unemployed ROS ROS ED Constitutional Constitutional ED: Denies chills or fever(s) Eyes Eyes: Denies change in vision or diplopia ENT ENT ED: Denies rhinorrhea or sore throat Cardiovascular Cardiovascular: Denies chest pain or palpitations Respiratory/Chest Respiratory/Chest: Denies cough or dyspnea Gastrointestinal Gastrointestinal: Reports abdominal pain, nausea and vomiting; Denies diarrhea Genitourinary Genitourinary ED: Reports flank pain; Denies dysuria or hematuria Musculoskeletal Musculoskeletal: Reports back pain; Denies neck pain Integumentary Denies abscess or rash Neurologic Neurologic: Denies headache(s), paresthesias or weakness Psychiatric Psychiatric: Denies anxiety or suicidal thoughts EXAM Physical Exam Const Vital Signs: 08/25/23 22:00 Temperature 98.2 F Temperature Source Temporal Pulse Rate 114 H Respiratory Rate 22 H Blood Pressure 205/140 H Blood Pressure Mean 161 Pulse Ox 99 Oxygen Delivery Method Room Air Positive well nourished and well developed Constitutional Narrative: Morbidly obese General Appearance ED: well developed and NAD HEENT Reports moist mucous membranes normocephalic and atraumatic Eyes PERRL and EOMs intact bilaterally Neck full ROM and supple Resp normal respiratory effort and clear to auscultation bilaterally Cardio regular rate, regular rhythm and no murmurs GI non-distended GI Narrative: Mild tenderness right lateral mid abdomen/flank. No guarding or rebound. Exam very limited due to obesity. Auscultation: normoactive bowel sounds Palpation: soft Back/Spine no CVA tenderness General Back: other FROM Extremity normal to inspection General Extremety ED: Negative for edema, pulses abnormal or tenderness General Extremity: Negative for edema or pulses abnormal Neuro oriented x3, CN's II-XII intact bilaterally and no sensory deficits noted Sensorium / Orientation: awake and alert Motor Exam: strength 5/5 throughout Skin no rashes or lesions noted and no wounds MDM MDM MDM Narrative Medical decision making narrative: More suspicious of kidney stone here than a pelvic organ pathology, labs, urinalysis, CT abdomen/pelvis without contrast obtained, after her serum test was negative. Her pain and nausea were treated successfully. I reviewed the images and the report of the CT which I agree with, basically a right UPJ 2 mm stone with mild hydronephrosis and hydroureter, which I agree explains her symptoms. Some hematuria, some uric acid in her urine, suggesting this may be uric acid stone, but no signs of acute infection. She has proteinuria as she has in the past but her creatinine is normal. This should be followed up on, for now expectant management and prescribe analgesics. After pain treatment, her blood pressure is in the 170s, lower than it was initially in the 200s. Lab Data Attestation: I reviewed the patient's lab results. Labs: Laboratory Results - last 24 hr 08/25/23 08/25/23 22:50 22:55 WBC 14.9 H RBC 5.18 Hgb 13.7 Hct 43.1 MCV 83.2 MCH 26.4 L MCHC 31.8 L RDW Std Deviation 42.8 RDW Coeff of Servando 14.2 Plt Count 536 H MPV 9.3 Immature Gran % (Auto) 0.300 Neut % (Auto) 75.1 H Lymph % (Auto) 17.1 L [place] % (Auto) 6.6 Eos % (Auto) 0.5 Baso % (Auto) 0.4 Absolute Neuts (auto) 11.2 H Absolute Lymphs (auto) 2.54 Nucleated RBC % 0 Sodium 138 Potassium 3.8 Chloride 104 Carbon Dioxide 28.0 Anion Gap 6 BUN 10 Creatinine 0.90 Estim Creat Clear Calc 76.30 Est GFR (MDRD) Af Amer 95 Est GFR (MDRD) Non-Af 79 BUN/Creatinine Ratio 11.1 Glucose 106 Calcium 9.2 Serum , Qual NEGATIVE Urine Color Yellow Urine Clarity Clear Urine pH 5.0 Ur Specific [place] 1.020 Urine Protein 500 H Urine Glucose (UA) Normal Urine Ketones Negative Urine Occult Blood 10 H Urine Nitrite Negative Urine Bilirubin Negative Urine Urobilinogen Normal Ur Leukocyte Esterase 25 H Urine RBC 0-5 SEEN Urine WBC 0-5 SEEN Ur Squamous Epith Cells 0-5 SEEN Amorphous Sediment 1+ URATE Urine Bacteria 0 SEEN Hyaline Casts 0-5 SEEN Urine Mucus 0 SEEN Radiography Diagnostic Testing: Clinical Impression(s) from Imaging Studies Abdomen/Pelvis CT 08/25/23 22:35 IMPRESSION: 1. 2 mm stone in the proximal right ureter, at the ureteropelvic junction, with mild right hydronephrosis. 2. Bilateral renal stones. Electronically Signed: Marty Haider DO at 0:21 EST , Discharge Plan Triage Chief Complaint: Abd Pain ED Provider: Philipp Redd Dx/Rx/DC Orders Clinical Impression: Accelerated hypertension, Proteinuria, Ureterolithiasis, Renal colic on right side Instructions: ED Proteinuria, ED Kidney Stone w/ Colic Prescriptions: New oxycodone-acetaminophen [Percocet] 5-325 mg tablet 1 tab PO Q6H PRN (Reason: pain) 3 Days Qty: 12 0RF ondansetron [ondansetron] 4 mg tablet,disintegrating 8 mg PO Q8H PRN PRN (Reason: Nausea) Qty: 20 0RF No Action albuterol sulfate 90 mcg/actuation aerosol powdr breath activated 2 puff INHALATION Q6H PRN (Reason: Sob &/Or Wheezing) ibuprofen 800 MG tablet 800 mg PO Q8H PRN PRN (Reason: Pain Or Fever) Rx Instructions: take with food baclofen 10 MG tablet 10 mg PO TID PRN (Reason: muscle spasm) meloxicam 15 mg tablet 15 mg PO DAILY Patient Comments: take 1 tablet by mouth once daily with food Trulicity 0.75 mg/0.5 mL pen injector 0.75 mg SUBCUT Q7D Patient Comments: inject 0.5 milliliters ( 0.75 milligrams ) subcutaneously ONCE A WEEK- mondays metformin 1,000 mg tablet 1,000 mg PO BID Patient Comments: take 1 tablet by mouth twice a day with meals valacyclovir 500 mg tablet 500 mg PO DAILY biotin 5,000 mcg tablet,disintegrating 10,000 mcg PO DAILY Primary Care Provider: Xiang Ruiz Referrals: Xiang Ruiz, [Primary Care Provider] - As soon as possible Disposition Disposition: Home, Self Care
[2023-08-25] MEDS: Morphine 4 MG/ML Syringe IV (22:56)
[2023-08-25] MEDS: Ondansetron 4 MG/2 ML Vial IV (22:56)
[2023-08-25] MEDS: Ketorolac 30 MG/ML Syringe IV (22:56)
[2023-08-25 23:07] LABS: Bacteria 0 SEEN /hpf (None Seen); Mucous, Urine 0 SEEN /hpf (<or=2+)
[2023-08-25 23:09] LABS: Absolute Lymphocyte Count 2.54 X10^3/uL (0.83-4.51); Absolute Neutrophil Count 11.2 X10^3/uL (2.0-7.7); Basophil# 0.06 X10^3/uL; Basophil% 0.4 % (0-1); Eosinophil# 0.08 X10^3/uL; Eosinophils% 0.5 % (0-5); Hematocrit 43.1 % (37-47); Hemoglobin 13.7 g/dL (12.0-15.0); Lymphocyte # 2.54 X10^3/ul (0.83-4.51); Lymphocyte % 17.1 % (19-41); Mean Corp Hgb Conc 31.8 g/dL (32-36); Mean Corpuscular Hgb 26.4 pg (27.0-32.0); Mean Corpuscular Volume 83.2 fL (81-99); Mean Platelet Vol. 9.3 fl (6.2-12.0); Monocyte# 0.98 X10^3/uL; Monocyte% 6.6 % (0-10); NRBC Flagged by Analyzer 0 % (0-5); Neutrophil # 11.18 X10^3/uL (2.7-7.7); Neutrophil % 75.1 % (47-70); Platelet Count 536 K/mm3 (150-450); RBC Distribution Width CV 14.2 % (11.6-14.6); RBC Distribution Width SD 42.8 fl (35.1-43.9); Red Blood Count 5.18 M/mm3 (4.2-5.4); White Blood Count 14.9 K/mm3 (4.4-11.0)
[2023-08-25 23:10] LABS: Color, Urine Yellow (Yellow); Glucose, Dipstick Normal (Normal); Ketone-Dipstick Negative (Negative); Leukocyte Esterase-Dipstick 25 /ul (Negative); Nitrite-Dipstick Negative (Negative); Occult Blood-Urine 10 /ul (Negative); Protein-Dipstick 500 mg/dl (Negative); Urine Bilirubin Dipstick Negative (Negative); Urine Clarity Clear (Clear); Urine Urobilinogen Normal (Normal)
[2023-08-25 23:20] LABS: Amorphous Sediment 1+ URATE; Hyaline Cast 0-5 SEEN /lpf (0-5); Red Blood Cells-Urine 0-5 SEEN /hpf (0-5); Squamous Epithelial Cells - UA 0-5 SEEN /hpf (5-10); White Blood Cells 0-5 SEEN /hpf (0-5)
[2023-08-25 23:24] LABS: Internal QC Validated? YES +Cl - CLEAR BKGD; Pregnancy, Serum, hCG Quali. NEGATIVE Negative
[2023-08-25 23:45] LABS: Anion Gap 6 (5-15); BUN 10 mg/dL (7-18); BUN/Creat Ratio 11.1 RATIO (10-20); Calcium,Total 9.2 mg/dL (8.5-10.1); Chloride 104 mmol/L (98-107); EST Glomerular Filtration Rate 79 mL/min (>60); Est Glom Filt Rate - Afr Amer 95 mL/min (>60); Glucose 106 mg/dL (74-106); Potassium 3.8 mmol/L (3.5-5.1); Sodium Level 138 mmol/L (136-145)
[2023-08-26] MEDS: Morphine 4 MG/ML Syringe IV (00:34)
[2023-08-26 00:38] VITALS: BP 174/98; PULSE 80; RESP 16; TEMP 36.7; O2SAT 97
== END 2023-08-26 00:43 | disposition home or self-care (01) ==
PROVIDERS: Emergency Provider Emergency Medicine; PCP Student in an Organized Health Care Education/Training Program; Visit Provider Emergency Medicine
DX: N13.2 Hydronephrosis with renal and ureteral calculous obstruction (principal); E11.9 Type 2 diabetes mellitus without complications; N23 Unspecified renal colic; R80.9 Proteinuria, unspecified; Z79.85 Long-term (current) use of injectable non-insulin antidiabetic drugs; Z79.84 Long term (current) use of oral hypoglycemic drugs; Z90.49 Acquired absence of other specified parts of digestive tract; I10 Essential (primary) hypertension
CPT/HCPCS: 74176; 80048; 81001; 84703; 85025; 96374; 96375; 96376; 99283; A4216; J2405

== ENCOUNTER 2023-10-27 13:20 | Emergency (ER) | payer MEDICAID, SELFPAY ==
[2023-10-27 13:22] VITALS: BP 160/121; PULSE 113; RESP 20; TEMP 35.9; O2SAT 95; BMI 59.0
--- NOTE | 2023-10-27 13:34 | CT_ITS ---
INDICATION: right flank pain EXAMINATION: CT ABDOMEN AND PELVIS WITHOUT CONTRAST - CT Abdomen And Pelvis W/O Contrast Injection TECHNIQUE: Helically acquired images were obtained of the abdomen and pelvis without oral or IV contrast. A radiation dose optimization technique was used for this scan. IV Contrast dosage and agent: None. Oral contrast: None. RADIATION DOSAGE (If Supplied By Facility): CTDIvol = ( 34.45 ) mGy, DLP = ( 1747.32 ) mGycm COMPARISON: Prior study dated: 08/25/2023. FINDINGS: LOWER CHEST: Lung bases are clear. No cardiomegaly or pericardial effusion. LIVER: Homogeneous. No focal lesion is definitely seen without contrast. GALLBLADDER AND BILIARY TREE: Status post cholecystectomy. No intra- or extrahepatic biliary ductal dilation. PANCREAS: No focal cystic or solid mass. SPLEEN: Normal size without focal cystic or solid mass. ADRENAL GLANDS: No nodules. KIDNEYS AND URETERS: Multiple small nonobstructing right renal stone. 4 mm stone in the right ureteropelvic junction larger than the previous exam. Persistent mild right hydronephrosis. Essentially unremarkable left kidney. PERITONEUM: No ascites or free air. No other fluid collection. BOWEL: The appendix is not visualized. No stomach or bowel distension. No focal inflammatory change. LYMPH NODES: No enlarged mesenteric or retroperitoneal lymph nodes. VESSELS: Aorta is non-dilated. URINARY BLADDER: Unremarkable. REPRODUCTIVE ORGANS: IUD is again seen in the uterus. ABDOMINAL WALL: No discrete abdominal or pelvic wall hernia. BONES: No lytic or blastic abnormality. CT/Abdomen/Pelvis without Cont IMPRESSION: 1. Persistent mild right hydronephrosis due to 4 mm stone in the right ureteropelvic junction. The stone appears to be slightly larger than the previous exam. 2. Multiple small nonobstructing right renal stones. 3. Otherwise no focal acute inflammatory process. Electronically Signed: Zachariah Christianson MD at 15:19 EST ,
--- NOTE | 2023-10-27 13:38 | EDS_ITS ---
HPI History of Present Illness Chief Complaint: Flank Pain Informant: patient Narrative Narrative: Patient presents with right flank pain. Patient states she had some flank pain yesterday evening but just thought maybe it was a pulled muscle. But today it is more. It shoots down to the right lower quadrant. It has been associated with nausea when the pain is bad. She has not vomited. She states once when she urinated it seemed to make the pain worse but no actual dysuria frequency urgency or hematuria or darkening. No fevers or chills. No change in bowel habits. She has had kidney stones about 3 times before and states this feels a lot like prior kidney stones. She has had prior what sounds like cholecystectomy and a surgery on one of her tubes am not sure if she had an ectopic. She still has her appendix. [facility] Medical History Anxiety Anxiety and depression Asthma Bilateral ovarian cysts Depression Diabetes Kidney stones Migraines PCOS (polycystic ovarian syndrome) Home Medications albuterol sulfate 90 mcg/actuation breath activated powder inhaler 2 puff inhalation Q6H PRN Sob &/Or Wheezing 05/08/18 [History Last Taken Unknown] ibuprofen 800 mg tablet 800 mg PO Q8H PRN PRN Pain Or Fever 02/26/20 [History Last Taken Unknown] baclofen 10 mg tablet 10 mg PO TID PRN muscle spasm 01/07/21 [History Last Taken Unknown] biotin 5,000 mcg disintegrating tablet 10,000 mcg PO DAILY 08/25/23 [History Last Taken Unknown] dulaglutide 0.75 mg/0.5 mL subcutaneous pen injector (Trulicity) 0.75 mg subcut Q7D 08/25/23 [History Last Taken Unknown] meloxicam 15 mg tablet 15 mg PO DAILY 08/25/23 [History Last Taken Unknown] metformin 1,000 mg tablet 1,000 mg PO BID 08/25/23 [History Last Taken Unknown] valacyclovir 500 mg tablet 500 mg PO DAILY herpies flair 08/25/23 [History Last Taken Unknown] ondansetron 4 mg disintegrating tablet 8 mg (2 x 4 mg) PO Q8H PRN PRN Nausea #20 tabs 08/26/23 [Rx Last Taken Unknown] oxycodone-acetaminophen 5 mg-325 mg tablet (Percocet) 1 tab PO Q6H PRN pain 3 days #12 tabs 08/26/23 [Rx Last Taken Unknown] ondansetron 4 mg disintegrating tablet 4 mg PO Q8H PRN PRN Nausea #10 tabs 10/27/23 [Rx Last Taken Unknown] oxycodone-acetaminophen 5 mg-325 mg tablet 1 tab PO Q6H PRN PRN Pain 3 days #12 TABLETS 10/27/23 [Rx Last Taken Unknown] Allergy/AdvReac Type Severity Reaction Status Date / Time No Known Allergies Allergy Verified 10/27/23 13:21 Family History Mother Diabetes Kidney disease Surgical History corrective eye surgery History of cholecystectomy History of ear, nose, and throat (ENT) surgery History of tonsillectomy S/P laparoscopic procedure Social History Smoking Status: Never smoker alcohol intake: never substance use type: does not use caffeine: No what type of physical activity do you participate in: walking seatbelt use: always do you feel safe at home: Yes additional social history: [place] Patient is unemployed ROS ROS ED ROS Narrative A complete review of systems was performed and is negative except as documented in the history of present illness. Some specific details below. Constitutional: No recent fevers or chills. EYE: No visual complaints or pain. ENT: No difficulty swallowing. No swelling. No pain. CV: No chest pain or palpitations. Respiratory: No dyspnea. No hemoptysis. No difficulty taking breaths. GI: Please see history of present illness. Nausea but no vomiting. : No frequency dysuria or hematuria. She did have some pain on the right with urination a single time. Musculoskeletal: No recent trauma. No pains. Skin: No rash. Nondiaphoretic. Neuro: No weakness or numbness. Endocrine: No polyuria or polydipsia. EXAM Physical Exam Narrative Exam Narrative: CONSTITUTIONAL: Patient is nontoxic in appearance. The patient looks mildly unomfortable. HEENT: No notable trauma. Mucous membranes mildly dry. No sinus tenderness. No indication of pain with swallowing. EYES: No conjunctival injection. No proptosis. CARDIOVASCULAR: Regular rate. Regular rhythm. No notable murmur. No JVD. RESPIRATORY: No respiratory distress. Breathing is unlabored. No wheezes. No rhonchi. No rales. No pain with a deep breath. GASTROINTESTINAL: Exam difficult due to size. But she does seem to have some right CVA tenderness and right lower quadrant tenderness. No noted rebound. No rashes noted. GENITOURINARY: Mild right CVA region tenderness. MUSCULOSKELETAL: Atraumatic. No numbness. Gait is normal. NEUROLOGICAL: Patient is alert and appropriate. No focal deficit noted. SKIN: No noted rashes. No diaphoresis. No vesicles. PSYCHIATRIC: Patient is calm. Mood is appropriate. Const Vital Signs: 10/27/23 13:22 10/27/23 15:20 Temperature 96.6 F L 97.7 F L Temperature Source Temporal Temporal Pulse Rate 113 H 79 Respiratory Rate 20 H 16 Blood Pressure 160/121 H 161/92 H Blood Pressure Mean 134 115 Pulse Ox 95 95 Oxygen Delivery Method Room Air Room Air MDM MDM MDM Narrative Medical decision making narrative: My independent interpretation of the patient's CT of the abdomen does show some mild hydronephrosis on the right side and what appears to be a kidney stone at the proximal UPJ on the right. I measure this approximately 4 mm in size. Final reading is pending. Patient CBC shows mild elevation white count at 13 3 but she almost always has elevated count. This is normal or almost low for her. Hemoglobin is normal. Patient's electrolytes show mild elevation of chloride. Glucose is up a bit at 184. Renal function is normal. Patient's serum level is negative. CT reading does show the stone. However when I look at the CT and the old one it is hard to tell if this is a new stone or its enlarged. But her kidney function is normal. The nurse put in note that her pain is 8 out of 10. But when I walked in the room she is calm sitting back in bed and looks quite comfortable. Her heart rate is down. Her breathing rate is normal. She carries on a normal conversation. I think she is okay to go home. I will give her number/name of urologist. I explained that even if the symptoms get better she needs to follow-up. I will write her for meds for nausea 2. If she develops worsening pain, fever, recurrent vomiting or other concerns she should return. Lab Data Attestation: I reviewed the patient's lab results. Labs: Laboratory Results - last 24 hr 10/27/23 10/27/23 13:50 14:55 WBC 13.3 H RBC 4.77 Hgb 12.8 Hct 40.2 MCV 84.3 MCH 26.8 L MCHC 31.8 L RDW Std Deviation 43.4 RDW Coeff of Servando 14.2 Plt Count 472 H MPV 9.5 Immature Gran % (Auto) 0.400 Neut % (Auto) 70.7 H Lymph % (Auto) 20.4 [place] % (Auto) 6.0 Eos % (Auto) 2.0 Baso % (Auto) 0.5 Absolute Neuts (auto) 9.4 H Absolute Lymphs (auto) 2.70 Nucleated RBC % 0 Sodium 138 Potassium 4.0 Chloride 109 H Carbon Dioxide 24.0 Anion Gap 5 BUN 9 Creatinine 0.77 Estim Creat Clear Calc 156.42 Est GFR (MDRD) Af Amer 113 Est GFR (MDRD) Non-Af 94 BUN/Creatinine Ratio 11.7 Glucose 184 H Calcium 9.4 Serum , Qual NEGATIVE Urine Color Yellow Urine Clarity Clear Urine pH 6.0 Ur Specific [place] 1.010 Urine Protein 100 H Urine Glucose (UA) Normal Urine Ketones Negative Urine Occult Blood 25 H Urine Nitrite Negative Urine Bilirubin Negative Urine Urobilinogen Normal Ur Leukocyte Esterase 100 H Urine RBC 0-5 SEEN Urine WBC 5-10 SEEN Ur Squamous Epith Cells 0-5 SEEN Urine Bacteria 0 SEEN Urine Mucus 0 SEEN Radiography Diagnostic Testing: Clinical Impression(s) from Imaging Studies Abdomen/Pelvis CT 10/27/23 13:34 IMPRESSION: 1. Persistent mild right hydronephrosis due to 4 mm stone in the right ureteropelvic junction. The stone appears to be slightly larger than the previous exam. 2. Multiple small nonobstructing right renal stones. 3. Otherwise no focal acute inflammatory process. Electronically Signed: Zachariah Christianson MD at 15:19 EST , Discharge Plan Triage Chief Complaint: Flank Pain ED Provider: Ken Rouse Dx/Rx/DC Orders Clinical Impression: Kidney stone on right side, Nausea Instructions: ED Kidney Stone with Pain Prescriptions: New oxycodone-acetaminophen [oxycodone-acetaminophen] 5-325 mg tablet 1 tab PO Q6H PRN PRN (Reason: Pain) 3 Days Qty: 12 0RF ondansetron [ondansetron] 4 mg tablet,disintegrating 4 mg PO Q8H PRN PRN (Reason: Nausea) Qty: 10 0RF No Action albuterol sulfate 90 mcg/actuation aerosol powdr breath activated 2 puff INHALATION Q6H PRN (Reason: Sob &/Or Wheezing) ibuprofen 800 MG tablet 800 mg PO Q8H PRN PRN (Reason: Pain Or Fever) Rx Instructions: take with food baclofen 10 MG tablet 10 mg PO TID PRN (Reason: muscle spasm) meloxicam 15 mg tablet 15 mg PO DAILY Patient Comments: take 1 tablet by mouth once daily with food Trulicity 0.75 mg/0.5 mL pen injector 0.75 mg SUBCUT Q7D Patient Comments: inject 0.5 milliliters ( 0.75 milligrams ) subcutaneously ONCE A WEEK- mondays metformin 1,000 mg tablet 1,000 mg PO BID Patient Comments: take 1 tablet by mouth twice a day with meals valacyclovir 500 mg tablet 500 mg PO DAILY biotin 5,000 mcg tablet,disintegrating 10,000 mcg PO DAILY oxycodone-acetaminophen [Percocet] 5-325 mg tablet 1 tab PO Q6H PRN (Reason: pain) 3 Days Qty: 12 0RF ondansetron [ondansetron] 4 mg tablet,disintegrating 8 mg PO Q8H PRN PRN (Reason: Nausea) Qty: 20 0RF Primary Care Provider: Xiang Ruiz Referrals: Sarah Lunsford MD [Med Staff - Active Staff] - As soon as possible Xiang Ruiz DO [Primary Care Provider] - Disposition Disposition: Home, Self Care
[2023-10-27] MEDS: Morphine 4 MG/ML Syringe IV ×2 (13:46→14:25)
[2023-10-27] MEDS: Ondansetron 4 MG/2 ML Vial IV (13:46)
[2023-10-27] MEDS: 0.9% Normal Saline (1000mL) 1,000 ML 1000 ML IV (13:46)
--- OUTSIDE RECORDS SUMMARY | 2023-10-27 13:55 | XMS RPT_ITS | CCD ---
Author Name Unknown Address [address] [place] [address] Organization [facility] Care Team Providers Care Occupational Safety Specialist Name Role Phone PROVIDER, UNKNOWN Attending Unavailable PROVIDER, UNKNOWN Admitting Unavailable OLIVA PABON Primary Care Unavailable PROVIDER, UNKNOWN Attending Unavailable PROVIDER, UNKNOWN Admitting Unavailable OLIVA PABON Primary Care Unavailable CONSULT, IP SURGERY TRAUMA Referring Unava ilable REQUEST, IP PHYSICAL THERAPY SERVICE Consulting Unavailable HOLLY MARAVILLA Attending Unavailable HOLLY MARAVILLA Admitting Unavailable ALVIN GASPAR Referring Unavailable OLIVA PABON Primary Care Unavailable REQUEST, IP OCCUPATIONAL THERAPY SERVICE Consult ing Unavailable Ren Xiang PITTS Primary Care Provider [phone] Oliva Pabon Primary Care Provider XIANG REN L Attending Unavailable REN, XIANG L Primary Care Unavailable REN, XIANG L Primary Care Unavailable REN, XIANG L Referring Unavailable REN, XIANG L Attending Unavailable REN, XIANG L Primary Care Unavailable REN, XIANG L Attending Unavailable REN, XIANG L Primary Care Unavailable REN, XIANG L Referring Unavailable REN, XIANG L Primary Care Unavailable REN, XIANG L Referring Unavailable REN, XIANG L Primary Care Unavailable REN, XIANG L Primary Care Unavailable REN, XIANG L Attending Unavailable REN, XIANG L Primary Care Unavailable REN, XIANG L Primary Care Unavailable REN, XIANG L Referring Unavailable REN, XIANG L Primary Care Unavailable REN, XIANG L Attending Unavailable REN, XIANG L Primary Care Unavailable REN, XIANG L Referring Unavailable REN, XIANG L Primary Care Unavailable REN, XIANG L Primary Care Unavailable REN, XIANG L Attending Unavailable REN, XIANG L Primary Care Unavailable REN, XIANG L Referring Unavailable Allergies Allergy Classification Reported Allergen(s) Allergy Type Date of Onset Reaction(s) Facility (9 sources) Onion extract; Translations: [ONION] Drug Allergy 3 Anaphylaxis [facility] Rep[facility] (2 sources) OTHER (REVIEW COMMENTS!); Translations: [OTHER (REVIEW COMMENTS!)] Propensity to adverse reactions to drug (disorder) 1 Swelling [facility] (8 sources) [place] Oil; Translations: [PINE OIL] Allergy to substance 3 Hives, Swelling, Itching [facility] Work Phone: Medications Current Medications Medication Drug Class(es) Dates Sig (Normalized) Sig (Original) gabapentin 300 mg oral capsule (1 source) Anti-epileptic Agent take 1 capsule by mouth three times daily gabapentin (NEURONTIN) 300 MG capsule Take 300 mg by mouth 3 times daily. 0 Active LORazepam 1 mg oral tablet (2 sources) Benzodiazepine Start: 01-11-2023 End: 02-10-2023 take 1 tablet by mouth once daily as needed for anxiety LORazepam (ATIVAN) 1 mg tablet Indications: Situational anxiety Take 1 tablet by mouth once daily as needed (anxiety) for up to 30 days. 30 tablet 2 01/11/2023 02/10/2023 Active Completed/Discontinued Medications Medication Drug Class(es) Dates Sig (Normalized) Sig (Original) [id number] 200 actuat albuterol 0.09 mg/actuat metered dose inhaler (14 sources) beta2-Adrenergic Agonist Start: 06-13-2022 take 2 puff(s) by inhalation every six hours as needed albuterol HFA (PROAIR HFA) 90 mcg/actuation inhaler Inhale 2 Puffs as instructed every 6 hours as needed. 36 g 1 06/13/2022 Active Problems Active Problems Problem Classification Problem Date Documented Date Episodic/Chronic Anxiety disorders (16 sources) Anxiety; Translations: [Other specified anxiety disorders] Onset: 05-15-2017 Chronic Diabetes mellitus with complications (11 sources) Type 2 diabetes mellitus; Translations: [Type 2 diabetes mellitus with hyperglycemia] Onset: 07-10-2022 Chronic Disorders of lipid metabolism (9 sources) Mixed hyperlipidemia; Translations: [Mixed hyperlipidemia] Onset: 07-10-2022 07-10-2022 Chronic Essential hypertension (8 sources) Essential hypertension; Translations: [Essential (primary) hypertension] Onset: 08-29-2018 08-29-2018 Chronic Headache; including migraine (7 sources) Migraine with aura; Translations: [Migraine with aura, not intractable, without status migrainosus] Onset: 08-15-2022 08-15-2022 Chronic Miscellaneous mental health disorders (1 source) Psychophysiologic insomnia; Translations: [Chronic insomnia] Onset: 10-03-2022 Chronic Mood disorders (8 sources) Moderate major depression, single episode; Translations: [Major depressive disorder, single episode, moderate] Onset: 05-15-2017 05-15-2017 Chronic Nutritional deficiencies (8 sources) Vitamin D deficiency; Translations: [Vitamin D deficiency, unspecified] Onset: 07-10-2022 07-10-2022 Chronic Other nervous system disorders (1 source) Other chronic pain; Translations: [Chronic left-sided low back pain with left-sided sciatica] Onset: 03-03-2020 Chronic Other nutritional; endocrine; and metabolic disorders (9 sources) Body mass index 40+ - severely obese; Translations: [Morbid (severe) obesity due to excess calories] Onset: 05-15-2017 Chronic Other nutritional; endocrine; and metabolic disorders (9 sources) Metabolic syndrome X; Translations: [Metabolic syndrome] Onset: 08-15-2022 Chronic Other nutritional; endocrine; and metabolic disorders (1 source) Morbid (severe) obesity due to excess calories; Translations: [Morbid obesity with BMI of 60.0-69.9, adult ([facility])] Onset: 05-15-2017 Chronic Other nutritional; endocrine; and metabolic disorders (1 source) Body mass index (BMI) 60.0-69.9, adult; Translations: [Morbid obesity with BMI of 60.0-69.9, adult ([facility])] Onset: 05-15-2017 Chronic Other nutritional; endocrine; and metabolic disorders (1 source) Metabolic syndrome; Translations: [Dysmetabolic syndrome] Onset: 08-15-2022 Chronic Other skin disorders (9 sources) Mass of skin of right lower limb; Translations: [Disorder of the skin and subcutaneous tissue, unspecified] Onset: 08-15-2022 08-15-2022 Episodic Past or Other Problems Problem Classification Problem Date Documented Da te Episodic/Chronic Biliary tract disease (1 source) Cholecystitis; Translations: [Cholecystitis, unspecified] Onset: 01-10-2021 01-15-2021 Episodic Diabetes mellitus without complication (1 source) Impaired fasting glucose; Translations: [IFG (impaired fasting glucose)] Onset: 06-20-2022 Episodic Mycoses (1 source) Tinea corporis; Translations: [Tinea corporis] Onset: 10-03-2022 Episodic Nutritional deficiencies (9 sources) Cobalamin deficiency; Translations: [Deficiency of other specified B group vitamins] Onset: 07-10-2022 07-10-2022 Episodic Other connective tissue disease (7 sources) Muscle pain; Translations: [Myalgia, unspecified site] Onset: 05-15-2017 05-15-2017 Episodic Other nervous system disorders (1 source) Abnormal gait; Translations: [Unsteadiness on feet] Onset: 01-13-2021 01-13-2021 Episodic Other non-traumatic joint disorders (7 sources) Joint pain; Translations: [Pain in unspecified joint] Onset: 05-15-2017 05-15-2017 Episodic Other non-traumatic joint disorders (8 sources) Pain in right knee; Translations: [Pain in joint, lower leg] Onset: 06-20-2022 07-10-2022 Episodic Other screening for suspected conditions (not mental disorders or infectious disease) (8 sources) Thyroid function tests abnormal; Translations: [Abnormal results of thyroid function studies] Onset: 07-10-2022 07-10-2022 Episodic Spondylosis; intervertebral disc disorders; other back problems (20 sources) Sciatica; Translations: [Sciatica, left side] Onset: 03-03-2020 Episodic Substance-related disorders (3 sources) Cannabis misuse; Translations: [Cannabis use, unspecified, uncomplicated] Onset: 05-30-2023 05-30-2023 Episodic Viral infection (7 sources) Herpes simplex; Translations: [Herpesviral infection, unspecified] Onset: 08-15-2022 08-15-2022 Episodic Results Test Name Value Interpretation Reference Range Facil ity Vital Signs Date Time Vital Sign Value Performing Clinician Shanice mckeon 01-11-2023 15:47-0400 Body weight 151.96 kg Xiang Ren DO Work Phone: [facility] Encounters Encounter Date Encounter Type Care Provider Facility Start: 09-05-2023 Refill Tiki hudson APRN.CNP Work Phone: [facility] Plan of Treatment Date Care Activity Detail Author Start: 12-13-2043 Shingles (RZV) Vaccine (1 of 2) Shingles (RZV) Vaccine (1 of 2) [facility] Start: 04-09-2028 Tetanus vaccination Tetanus (Td or Tdap) Booster [facility] Start: 04-09-2028 Urine microalbumin profile [facility] Start: 04-26-2024 ANNUAL PCP TEAM CHRONIC DISEASE VISIT ANNUAL PCP TEAM CHRONIC DISEASE VISIT [facility] Start: 04-12-2024 Hepatitis B surface antibody level LDL CHOLESTEROL [facility] Start: 01-12-2024 ANNUAL PCP TEAM CHRONIC DISEASE VISIT ANNUAL PCP TEAM CHRONIC DISEASE VISIT [facility] Start: 10-13-2023 Hemoglobin A1c/Hemoglobin.total in Blood HBA1C [facility] Start: 10-03-2023 BP CONTROLLED (<130/80) BP CONTROLLED (<130/80) [facility] Start: 07-03-2023 Hemoglobin A1c/Hemoglobin.total in Blood HBA1C [facility] Start: 06-30-2023 Influenza vaccination Influenza Vaccine (#1) [facility] Start: 06-20-2023 Hepatitis B surface antibody level LDL CHOLESTEROL [facility] Start: 05-31-2023 Covid-19 Vaccine ( season) Covid-19 Vaccine ( season) [facility] Start: 05-31-2023 Influenza vaccination INFLUENZA (#1) [facility] Start: 04-26-2023 End: 06-26-2023 PAIN PANEL, UR QUANT PAIN PANEL, UR QUANT Lab Routine Left sided sciatica Chronic left-sided low back pain with left-sided sciatica Expected: 04/26/2023, Expires: 06/26/2023 [facility] Work Phone: Immunizations Immunization Date Immunization Notes Care Provider Suzanne gaviria 06-15-2023 influenza, injectabl e, quadrivalent, preservative free Tiki Rose APRN.CNP Work Phone: [facility] 07-06-2022 influenza, injectabl e, quadrivalent, preservative free Xiang Ren DO Work Phone: [facility] 07-06-2022 influenza virus vacc ine, unspecified formulation Jacqueserich Loya [employer] Work Phone: [facility] 11-21-2021 Pfizer Monovalent (1 2+ yrs) SARS-COV-2 (COVID-19) vaccine, mRNA, spike protein, LNP, pres. free, 30 mcg/0.3mL dose, kathrin-sucrose ([id number]=[id number]) Jacques Guía Local Work Phone: [facility] 08-24-2021 influenza, injectabl e, quadrivalent, preservative free [employer] Work Phone: [facility] 12-25-2020 Pfizer Monovalent (1 2+ yrs) SARS-COV-2 (COVID-19) vaccine, mRNA, spike protein, LNP, pres. free, 30 mcg/0.3mL dose ([id number]) [employer] Work Phone: [facility] 06-29-2020 influenza, seasonal, injectable Xiang Ren DO Work Phone: [facility] 08-01-2019 influenza, seasonal, injectable Xiang Ren DO Work Phone: [facility] 10-15-2018 Human Papillomavirus 9-valent vaccine Xiang Ren DO Work Phone: [facility] Work Phone: 05-15-2018 Human Papillomavirus 9-valent vaccine Xiang Ren DO Work Phone: [facility] Work Phone: 04-09-2018 Human Papillomavirus 9-valent vaccine Xiang Ren DO Work Phone: [facility] Work Phone: 04-09-2018 tetanus toxoid, redu sarah diphtheria toxoid, and acellular pertussis vaccine, adsorbed Xiang Ren DO Work Phone: [facility] Work Phone: 07-19-2017 influenza virus vacc ine, unspecified formulation Xiang Ren DO Work Phone: [facility] 10-19-2014 pneumococcal polysaccharide vaccine, 23 valent Xiang Ren DO Work Phone: [facility] Work Phone: 08-27-2011 influenza, seasonal, injectable Jacques Groze [employer] Work Phone: [facility] 07-14-2009 influenza, seasonal, injectable Jacques Groze [employer] Work Phone: [facility] 03-01-2009 human papilloma viru s vaccine, quadrivalent Jacques Groze [employer]ULTING [employer] Work Phone: [facility] 10-05-2008 human papilloma viru s vaccine, quadrivalent Jacques Groze [employer]ULTING [employer]N Work Phone: [facility] 07-31-2008 influenza, seasonal, injectable Jacques Groze [employer]ULTING [employer]N Work Phone: [facility] 06-13-1999 diphtheria, tetanus toxoids and acellular pertussis vaccine, unspecified formulation Jacques Groze [employer]ULTING [employer] Work Phone: [facility] 02-15-1999 measles, mumps and rubella virus vaccine Jacques Groze [employer]ULTING [employer] Work Phone: [facility] 02-15-1999 trivalent poliovirus vaccine, live, oral Jacques Groze [employer]ULTING [employer]N Work Phone: [facility] 06-28-1995 diphtheria, tetanus toxoids and pertussis vaccine Jacques Groze [employer]ULTING [employer]N Work Phone: [facility] 06-28-1995 trivalent poliovirus vaccine, live, oral Jacques Groze [employer]ULTING [employer] Work Phone: [facility] 05-17-1995 varicella virus vaccine Jacques Groze CONSULTING INTERN Work Phone: [facility] 04-12-1995 haemophilus influenz ae type b vaccine, conjugate unspecified formulation Jacques Groze CONSULTING INTERN Work Phone: [facility] 07-11-1994 hepatitis B vaccine, pediatric or pediatric/adolescent dosage Jacques Groze CONSULTING INTERN Work Phone: [facility] 06-20-1994 diphtheria, tetanus toxoids and pertussis vaccine Jacques Groze CONSULTING INTERN Work Phone: [facility] 06-20-1994 haemophilus influenz ae type b vaccine, conjugate unspecified formulation Jacques Groze CONSULTING INTERN Work Phone: [facility] 04-18-1994 diphtheria, tetanus toxoids and pertussis vaccine Jacques Groze CONSULTING INTERN Work Phone: [facility] 04-18-1994 haemophilus influenz ae type b vaccine, conjugate unspecified formulation Jacques [employer] CONSULTING INTERN Work Phone: [facility] 04-18-1994 trivalent poliovirus vaccine, live, oral Jacques Groze CONSULTING INTERN Work Phone: [facility] 02-14-1994 diphtheria, tetanus toxoids and pertussis vaccine Jacques Groze CONSULTING INTERN Work Phone: [facility] 02-14-1994 haemophilus influenz ae type b vaccine, conjugate unspecified formulation Jacques [employer] Work Phone: [facility] 02-14-1994 hepatitis B vaccine, pediatric or pediatric/adolescent dosage Jacques Groze CONSULTING INTERN Work Phone: [facility] 02-14-1994 trivalent poliovirus vaccine, live, oral Jacques [employer] CONSULTING INTERN Work Phone: [facility] 01-03-1994 hepatitis B vaccine, pediatric or pediatric/adolescent dosage Jacques Groze CONSULTING INTERN Work Phone: [facility] Payers Date Payer Category Payer Medicaid [id number] 2020 Medicaid [id number] 2019 Medicaid [id number] 1995 Unknown [id number] 1993 Unknown [id number] 1993 Unknown [id number] Social History Date Type Detail Facility Start: 04-09-2018 End: 02-26-2023 Tobacco smoking status NHIS Never smoked tobacco [facility] Work Phone: Start: 04-09-2018 End: 02-26-2023 Tobacco use and exposure Smokeless tobacco non-user [facility] Work Phone: Start: 07-10-2022 End: 05-30-2023 Alcohol intake Current non-drinker of alcohol (finding) [facility] Start: 10-01-2022 History SDOH Alcohol Frequency 2 [facility] Start: 10-01-2022 History SDOH Alcohol Std Drinks 1 [facility] Start: 10-01-2022 History SDOH Social Connections Phone 5 [facility] Start: 10-01-2022 History SDOH Social Connections Holiness 98 [facility] Start: 10-01-2022 History SDOH Social Connections Living 6 [facility] Start: 10-01-2022 History SDOH Physical Activity DPW 3 [facility] Start: 10-01-2022 History SDOH Stress 4 [facility] Start: 11-29-2019 Education 14 [facility] Start: 1995 Sex Assigned At Female [facility] Start: 09-30-2022 End: 04-26-2023 History of Social function [facility] Start: 09-30-2022 End: 04-26-2023 Social connection and isolation panel [facility] How often do you att end pentecostal or buddhism services? Patient refused [facility] Do you belong to any clubs or organizations such as pentecostal groups, unions, fraternal or athletic groups, or school groups? No [facility] Are you now , , , , never or living with a partner? [facility] How often to you hav e a drink containing alcohol? Monthly or less [facility] How many standard dr inks containing alcohol do you have on a typical day? 1 or 2 [facility] How often do you hav e 6 or more drinks on 1 occasion? Never [facility] How hard is it for y ou to pay for the very basics like food, housing, medical care, and heating Somewhat hard [facility] Do you feel stress - tense, restless, nervous, or anxious, or unable to sleep at night because your mind is troubled all the time - these days [OSQ] Rather much [facility] (I/We) worried wheishan er (my/our) food would run out before (I/we) got money to buy more. Sometimes true [facility] The food that (I/we) bought just didn't last, and (I/we) didn't have money to get more. Often true [facility] Start: 01-12-2023 Gender identity Identifies as female gender (finding) [facility] Tobacco smoking stat [facility] Tobacco smoking consumption unknown [facility] Work Phone: Start: 1995 Sex Assigned At Not on file [facility] Start: 12-11-2020 End: 01-10-2021 Exposure to SARS-CoV-2 (event) Not sure [facility] Medical Equipment Procedure Code Equipment Code Equipment Origin al Text Equipment Identifier Dates Test blood sugar (s) 2 times daily. Dx: Type 2 DM - Uncontrolled E11.65 Insulin: No Start: 07-09-2022 Clinical Notes 01-11-2021 to 05-30-2023 Telephone Encounter - Taylor Gomez RN - 05/30/2023 4:28 PM EDTTelephone Encounter - Megan Bardales APRN.CNP - 05/30/2023 3:44 PM Xiang Clay DO - 04/26/2023 1:24 PM EDT Note Date & Type Note Facility 05-30-2023 Miscellaneous Notes Pt called and is notified of providers results and message. Pt voices understanding. Taylor Gomez RN Please let Marcie know that her tox screen is positive for cannabis. We can no longer prescribe her controlled substances. Megan Bardales APRN.CNP documented in this encounter [facility] 04-26-2023 Note HNO ID: [id number] Author: Xiang Ren, DO Service: ? Author Type: Physician Type: Progress Notes Filed: 04/30/2023 7:24 AM Note Text: In lieu of an in person visit due to coronavirus COVID 19 pandemic concerns, a virtual visit was performed with patient. Patient is aware that I am not fully able to assess symptoms and do a full physical exam including vital signs in office at this time. Patient consents to the visit. VIRTUAL VISIT PROGRESS NOTE This is a virtual visit using [employer] video visit. It required patient-provider interaction for the medical decision making as documented below. I have communicated my name and active licensure. The patient's identity and physical location were verified at the time of this visit. Either the patient or their legal sales representative metals has been informed of the risks and benefits of -- and alternatives to -- treatment through a remote evaluation and consents to proceed with the evaluation remotely. Marcie Nixon is a 27 year old female seen for follow up Last assessed by virtual visit on 01/11/23, at that time Insomnia, chronic. Comes and goes, has tried Melatonin without relief. Never on prescription medication in the past- was started on trazodone at last virtual VISIT in Sep. Has a fmhx of insomnia in mother and aunt. Had previously tried magnesium, melatonin and benadryl sleep aides over the counter only. Obesity, struggling with trying to lose weight, has been losing and gaining same 10 lbs recently. Weight is 335 lbs now. Has been exercising 2-3 days a week. Has recently been started on trulicity over the last 2-3 months and tolerating 0.75 mg a week well- would be interested in a dose increase at this time. Would like to restart Adipex as well- has tolerated well in the past. BMI 59.34 Type 2 diabetes, taking metformin 1000 mg twice a day, blood sugar fasting 110-130s. Still feels it isn't helping with her weight loss as well. Has recently been started on trulicity over the last 2-3 months and tolerating 0.75 mg a week well- would be interested in a dose increase at this time. Low back pain, states that the lyrica medication is helping but still struggling with some sciatica pain, she is wondering if dose of medication can be increased, no SE with medication Vitamin D deficiency, taking supplement. Long standing anxiety symptoms. Has been improved in the past with prn use of Ativan for panic symptoms. Interested in restarting this medication if able. Currently Low back pain, states that the lyrica medication is helping but still struggling with some sciatica pain, no SE with medication Diabetes type 2, Recently has been in a new relationship about 6 months ago, states that she felt embarrassed about having to check her blood glucose and take her medication correctly so stopped taking her medication temporarily and has now been back on for the last 2 weeks consistently with her trulicity. Prior to restarting her trulicity she had the highest fasting blood glucose ever at 213 and this scared her as well. Recently has been better controlled with fasting blood glucose readings 90-110 at max for the last 1 week Hemoglobin A1C Date Value Ref Range Status 04/12/2023 7.1 (H) 4.3 - 5.6 % Final Comment: [place] [employer] guidelines indicate that patients with HgbA1c in the range 5.7-6.4% are at increased risk for development of diabetes, and intervention by lifestyle modification may be beneficial. HgbA1c greater or equal to 6.5% is considered diagnostic of diabetes. 01/01/2023 5.9 (H) 4.3 - 5.6 % Final Comment: [place] [employer] guidelines indicate that patients with HgbA1c in the range 5.7-6.4% are at increased risk for development of diabetes, and intervention by lifestyle modification may be beneficial. HgbA1c greater or equal to 6.5% is considered diagnostic of diabetes. 09/12/2022 6.2 (H) 4.3 - 5.6 % Final Comment: [place] [employer] guidelines indicate that patients with HgbA1c in the range 5.7-6.4% are at increased risk for development of diabetes, and intervention by lifestyle modification may be beneficial. HgbA1c greater or equal to 6.5% is considered diagnostic of diabetes. 06/20/2022 6.9 (H) 4.3 - 5.6 % Final Comment: [place] [employer] guidelines indicate that patients with HgbA1c in the range 5.7-6.4% are at increased risk for development of diabetes, and intervention by lifestyle modification may be beneficial. HgbA1c greater or equal to 6.5% is considered diagnostic of diabetes. 10/22/2018 6.1 (H) 4.3 - 5.6 % Final Comment: [place] [employer] guidelines indicate that patients with HgbA1c in the range 5.7-6.4% are at increased risk for development of diabetes, and intervention by lifestyle modification may be beneficial. HgbA1c greater or equal to 6.5% is considered diagnostic of diabetes. Glucose (mg/dL) Date Value 0 (more content not included)... [facility] 04-26-2023 History of Presen t illness Narrative In lieu of an in person visit due to coronavirus COVID 19 pandemic concerns, a virtual visit was performed with patient. Patient is aware that I am not fully able to assess symptoms and do a full physical exam including vital signs in office at this time. Patient consents to the visit. VIRTUAL VISIT PROGRESS NOTE This is a virtual visit using [employer] video visit. It required patient-provider interaction for the medical decision making as documented below. I have communicated my name and active licensure. The patient's identity and physical location were verified at the time of this visit. Either the patient or their legal sales representative metals has been informed of the risks and benefits of -- and alternatives to -- treatment through a remote evaluation and consents to proceed with the evaluation remotely. Marcie Nixon is a 27 year old female seen for follow up Last assessed by virtual visit on 01/11/23, at that time Insomnia, chronic. Comes and goes, has tried Melatonin without relief. Never on prescription medication in the past- was started on trazodone at last virtual VISIT in Sep. Has a fmhx of insomnia in mother and aunt. Had previously tried magnesium, melatonin and benadryl sleep aides over the counter only. Obesity, struggling with trying to lose weight, has been losing and gaining same 10 lbs recently. Weight is 335 lbs now. Has been exercising 2-3 days a week. Has recently been started on trulicity over the last 2-3 months and tolerating 0.75 mg a week well- would be interested in a dose increase at this time. Would like to restart Adipex as well- has tolerated well in the past. BMI 59.34 Type 2 diabetes, taking metformin 1000 mg twice a day, blood sugar fasting 110-130s. Still feels it isn't helping with her weight loss as well. Has recently been started on trulicity over the last 2-3 months and tolerating 0.75 mg a week well- would be interested in a dose increase at this time. Low back pain, states that the lyrica medication is helping but still struggling with some sciatica pain, she is wondering if dose of medication can be increased, no SE with medication Vitamin D deficiency, taking supplement. Long standing anxiety symptoms. Has been improved in the past with prn use of Ativan for panic symptoms. Interested in restarting this medication if able. Currently Low back pain, states that the lyrica medication is helping but still struggling with some sciatica pain, no SE with medication Diabetes type 2, Recently has been in a new relationship about 6 months ago, states that she felt embarrassed about having to check her blood glucose and take her medication correctly so stopped taking her medication temporarily and has now been back on for the last 2 weeks consistently with her trulicity. Prior to restarting her trulicity she had the highest fasting blood glucose ever at 213 and this scared her as well. Recently has been better controlled with fasting blood glucose readings 90-110 at max for the last 1 week Hemoglobin A1C Date Value Ref Range Status 04/12/2023 7.1 (H) 4.3 - 5.6 % Final Comment: [place] [employer] guidelines indicate that patients with HgbA1c in the range 5.7-6.4% are at increased risk for development of diabetes, and intervention by lifestyle modification may be beneficial. HgbA1c greater or equal to 6.5% is considered diagnostic of diabetes. 01/01/2023 5.9 (H) 4.3 - 5.6 % Final Comment: [place] [employer] guidelines indicate that patients with HgbA1c in the range 5.7-6.4% are at increased risk for development of diabetes, and intervention by lifestyle modification may be beneficial. HgbA1c greater or equal to 6.5% is considered diagnostic of diabetes. 09/12/2022 6.2 (H) 4.3 - 5.6 % Final Comment: [place] [employer] guidelines indicate that patients with HgbA1c in the range 5.7-6.4% are at increased risk for development of diabetes, and intervention by lifestyle modification may be beneficial. HgbA1c greater or equal to 6.5% is considered diagnostic of diabetes. 06/20/2022 6.9 (H) 4.3 - 5.6 % Final Comment: [place] [employer] guidelines indicate that patients with HgbA1c in the range 5.7-6.4% are at increased risk for development of diabetes, and intervention by lifestyle modification may be beneficial. HgbA1c greater or equal to 6.5% is considered diagnostic of diabetes. 10/22/2018 6.1 (H) 4.3 - 5.6 % Final Comment: [place] [employer] guidelines indicate that patients with HgbA1c in the range 5.7-6.4% are at increased risk for development of diabetes, and intervention by lifestyle modification may be beneficial. HgbA1c greater or equal to 6.5% is considered diagnostic of diabetes. Glucose (mg/dL) Date Value 04/12/2023 73 10/19/2014 105 Potassium (mmol/L) Date Value 04/12/2023 4.3 10/19/2014 4.4 Sodium (mmol/L) Date Value 04/12/2023 136 10/19/2014 137 Chloride (mmol/L) Date Value 04/12/2023 101 10/19/2014 102 CO2 (mmol/L) Date Value 04/12/2023 20 10/19/2014 19 Creatinine (mg/dL) Date Value 04/12/2023 0.61 12/24/2018 0.57 BUN (mg/dL) Date Value 04/12/2023 12 12/24/2018 9 Anion Gap (mmol/L) Date Value 04/12/2023 15 10/19/2014 16 Calcium (mg/dL) Date Value 10/19/2014 9.6 Calcium, Total (mg/dL) Date Value 04/12/2023 9.4 Protein, Total (g/dL) Date Value 04/12/2023 8.4 12/24/2018 8.5 Albumin (g/dL) Date Value 04/12/2023 4.0 12/24/2018 4.5 Bilirubin, Total (mg/dL) Date Value 04/12/2023 0.6 10/19/2014 0.3 Alkaline Phosphatase (U/L) Date Value 04/12/2023 86 10/19/2014 90 AST (U/L) Date Value 04/12/2023 26 12/24/2018 20 ALT (U/L) Date Value 04/12/2023 18 12/24/2018 15 Has started a gym membership at [employer] to exercise 2-3 days a week for the last 1 month HPL, diet controlled Cholesterol, Total Date Value Ref Range Status 04/12/2023 236 (H) <200 mg/dL Final Comment: <200 mg/dL, Desirable 200-239 mg/dL, Borderline high >239 mg/dL, High HDL Cholesterol Date Value Ref Range Status 04/12/2023 36 (L) >39 mg/dL Final Comment: 40-59 mg/dL, Acceptable >59 mg/dL, High: Negative risk factor for coronary heart disease <40 mg/dL, Low: Positive risk factor for coronary heart disease LDL Cholesterol Date Value Ref Range Status 04/12/2023 169 (H) <100 mg/dL Final Comment: <100 mg/dL, Optimal 100-129 mg/dL, Near optimal/above optimal 130-159 mg/dL, Borderline high 160-189 mg/dL, High >189 mg/dL, Very high Secondary prevention optimal LDL Cholesterol levels are recommended to be < 70 mg/dL Triglyceride Date Value Ref Range Status 04/12/2023 157 (H) <150 mg/dL Final Comment: <150 mg/dL, Normal 150-199 mg/dL, Borderline high 200-499 mg/dL, High >499 mg/dL, Very high HISTORY REVIEWED (electronic chart updated): PAST MEDICAL HISTORY Diagnosis Date Anemia 2007 iron deficiency Asthma mild intermittent allergic related Depression seasonal Dyslexia Essential hypertension Fatty liver 2009 Hard of hearing LEFT EAR, congenital Hypercholesteremia 09/2014 Impaired fasting glucose 09/2014 Type 2 diabetes mellitus with hyperglycemia, without long-term current use of insulin ([facility]) 07/10/2022 Vitamin D deficiency 09/2014 PAST SURGICAL HISTORY Procedure Laterality Date MYRINGOTOMY ASPIR&/EUSTACHIAN TUBE NFLTJ ANES Myringotomy/tubes PAST SURGICAL HISTORY OF LAZY EYE CORRECTION LEFT EYE PAST SURGICAL HISTORY OF 03/21/2018 Cysts removed off of both Ovaries TONSILLECTOMY PRIMARY/SECONDARY <AGE 12 Tonsillectomy FAMILY HISTORY Problem Relation Age of Onset Alcohol/Drug Mother Arthritis Mother Asthma Mother Emphysema Mother Diabetes Mother Hypertension Mother Psychiatry Mother BIPOLAR Stroke Mother Breast Cancer Maternal Grandmother Cancer Maternal Grandfather LUNG CANCER Arthritis Maternal Uncle Asthma Maternal Aunt X2 Hypertension Maternal Aunt Lipids Maternal Aunt Psychiatry Maternal Aunt BIPOLAR Social History Tobacco Use Smoking status: Never Smokeless tobacco: Never Substance Use Topics Alcohol use: No Drug use: No Current Outpatient Medications Medication Sig metFORMIN (GLUCOPHAGE) 1,000 mg tablet Take 1 tablet by mouth twice daily with meals. triamcinolone acetonide (KENALOG) 0.1 % cream Apply 1 application to affected area twice daily as needed (rash on legs). Apply sparingly to area for rash/itching. permethrin (ELIMITE) 5 % cream Apply to all areas of the body from the neck to soles of feet; leave on for 8 to 14 hours before removing by washing (shower or bath) dulaglutide (TRULICITY) 1.5 mg/0.5 mL pen injector Inject 1.5 mg subcutaneously one time a week. Inject once per week. Discard Pen After pregabalin (LYRICA) 75 mg capsule Take 1 capsule by mouth three times daily as needed (lumbar low back pain and sciatica) for up to 30 days. cholecalciferol, Vitamin D3, (VITAMIN D3) 1,250 mcg (50,000 unit) cap capsule Take 1 capsule by mouth one time a week. traZODone (DESYREL) 100 mg tablet Take 1-2 tablets by mouth daily at bedtime. fluconazole (DIFLUCAN) 200 mg tablet Take 1 tablet PO once x 1 day, then repeat on days 3, 5, 7, and 9 valACYclovir (VALTREX) 500 mg tablet Take 1 tablet by mouth once daily. rizatriptan ([employer]) 5 mg disintegrating tablet Take 1 tablet by mouth as needed for migraine headache (see administration instructions). May repeat in 2 hours if needed cyanocobalamin (VITAMIN B-12) 1,000 mcg tab Take 2 tablets by mouth once daily. blood sugar diagnostic (BLOOD GLUCOSE TEST) test strip Test blood sugar(s) 2 times daily. Dx: Type 2 DM - Uncontrolled E11.65 Insulin: No Lancets lancets Test blood sugar(s) 2 times daily. Dx: Type 2 DM - Uncontrolled E11.65 Insulin: No WALKER ROLLATOR SEAT WITH 6 WHEELS - RED Dx: balance disorder, bilateral knee pain, chronic low back pain loratadine (CLARITIN) 10 mg tablet Take 1 tablet by mouth once daily. For allergies albuterol HFA (PROAIR HFA) 90 mcg/actuation inhaler Inhale 2 Puffs as instructed every 6 hours as needed. naproxen (NAPROSYN) 500 mg tablet Take 1 tablet by mouth twice daily as needed for Pain (for pain). Take with food baclofen (LIORESAL) 10 mg tablet Take 1 tablet by mouth three times daily as needed (Muscle spasms). cyclobenzaprine (FLEXERIL) 10 mg tablet Take 1 tablet by mouth three times daily as needed for Muscle Spasm. ibuprofen (MOTRIN) 800 mg tablet Take 1 tablet by mouth every 8 hours as needed for Pain. Take with food. lidocaine (SALONPAS) 4 % patch Apply 1 application as directed once daily. hydroCHLOROthiazide (HYDRODIURIL, ESIDRIX) 50 mg tablet Take 1 tablet by mouth once daily. (Patient not taking: Reported on 07/14/2020 ) cyclobenzaprine (FLEXERIL) 10 mg tablet Take 1 tablet by mouth twice daily as needed for Muscle Spasm. EPINEPHrine (EPIPEN) 0.3 mg/0.3 mL auto-injector Use as directed for allergic reaction cholecalciferol (VITAMIN D3) 5,000 unit tab Take 1 tablet by mouth once daily. losartan (COZAAR) 100 mg tablet take 1 tablet by mouth once daily COMPOUNDED PRESCRIPTION Order: BLOOD PRESSURE cuff Dx: essential hypertension albuterol 90 mcg/actuation aero Inhale 2 Puffs as instructed every 4 hours as needed. No current facility-administered medications for this visit. ALLERGIES Allergen Reactions Onion Anaphylaxis [place] Oil Hives, Swelling, Itching REVIEW OF SYSTEMS: As noted in HPI PHYSICAL EXAMINATION: VIDEO EXAM: (if completed, performed via video enabled technology) GENERAL: alert and appropriate, in no distress, well-hydrated, well nourished, appears tired, and overweight ASSESSMENT: (M54.32) Left sided sciatica (primary encounter diagnosis) (M54.42, G89.29) Chronic left-sided low back pain with left-sided sciatica (E11.65) Type 2 diabetes mellitus with hyperglycemia, without long-term current use of insulin (HCC) (E66.01, Z68.44) Morbid obesity with BMI of 60.0-69.9, adult (HCC) (E88.81) Dysmetabolic syndrome (E53.8) Vitamin B12 deficiency (E78.2) Hyperlipidemia, mixed PLAN: Add on meloxicam for pain, continue Lyrica. Can consider increased dose of lyrica in the future. Check pain panel/urine tox as ordered. Consider prn use of tramadol for severe pain after discussion in office and pain agreement/opiate agreement signed with patient. Patient aware of above. Increase dose of trulicity for better glucose control and weight loss needs. Patient is aware of need for weight loss. There are no Patient Instructions on file for this visit. I spent a total of 37 minutes on the date of the service which included preparing to see the patient, [id number] patient care, completing clinical documentation, obtaining and/or reviewing separately obtained history, performing a medically appropriate examination, and ordering medications, tests, or procedures Xiang Ren DO documented in this encounter [facility] 04-25-2023 Miscellaneous Notes Last office visit: 01/11/23 F/u scheduled: 04/26/23 Last refilled on: Lyrica #90 with 2 refills on 01/11/23 Osiris Bianchi Ma documented in this encounter [facility] 04-10-2023 Miscellaneous Notes Patient has been identified by name and date of : Patient phones for refill(s): Requested Prescriptions Pending Prescriptions Disp Refills metFORMIN (GLUCOPHAGE) 1,000 mg tablet 60 tablet 3 Sig: Take 1 tablet by mouth twice daily with meals. Date of last office visit in primary care: 01/11/23 Last 2 Encounter Wt Readings: Date: Wt: 02/26/2023 153 kg (337 lb 6.4 oz) 01/11/2023 152 kg (335 lb) Previous labs/tests for medication: Not applicable Please advise. Thank you. Smita Hernadez LPN documented in this encounter [facility] 02-26-2023 Note HNO ID: [id number] Author: Nathalie Horta APRN.THERAPEUTIC CONSULTANT Service: ? Author Type: Nurse Practitioner Type: Progress Notes Filed: 02/26/2023 4:32 PM Note Text: CC: Patient presents with: Rash: On both arms x 2 weeks HPI Marcie Nixon is a 27 year old female who presents today for rash. Duration: two weeks. Location: bilateral arms Itching or Pain: very itchy, especially at night. Ever had a rash like this before: YES, a few years ago. Attributed to chemical exposure. History of skin problems such as psoriasis, eczema, hives: No. Changes in soaps or detergents: No. New medications or foods: No. Exposure to others with rash: No. Environmental exposures: used cleaning solution at the gym prior to onset of rash Environmental/seasonal allergies: No Fever, chills, fatigue, joint pain/swelling: No. Treatments: Kenalog cream twice a day x 4 days, no improvement PAST MEDICAL HISTORY Diagnosis Date Anemia 2008 iron deficiency Asthma mild intermittent allergic related Depression seasonal Dyslexia Essential hypertension Fatty liver 2009 Hard of hearing LEFT EAR, congenital Hypercholesteremia 09/2014 Impaired fasting glucose 09/2014 Type 2 diabetes mellitus with hyperglycemia, without long-term current use of insulin ([facility]) 07/10/2022 Vitamin D deficiency 09/2014 PAST SURGICAL HISTORY Procedure Laterality Date MYRINGOTOMY ASPIRAND/EUSTACHIAN TUBE NFLTJ ANES Myringotomy/tubes PAST SURGICAL HISTORY OF LAZY EYE CORRECTION LEFT EYE PAST SURGICAL HISTORY OF 03/21/2018 Cysts removed off of both Ovaries TONSILLECTOMY PRIMARY/SECONDARY Tonsillectomy ALLERGIES Onion and [place] Oil MEDICATIONS dulaglutide (TRULICITY) 1.5 mg/0.5 mL pen injector Inject 1.5 mg subcutaneously one time a week. Inject once per week. Discard Pen After cholecalciferol, Vitamin D3, (VITAMIN D3) 1,250 mcg (50,000 unit) cap capsule Take 1 capsule by mouth one time a week. metFORMIN (GLUCOPHAGE) 1,000 mg tablet Take 1 tablet by mouth twice daily with meals. traZODone (DESYREL) 100 mg tablet Take 1-2 tablets by mouth daily at bedtime. fluconazole (DIFLUCAN) 200 mg tablet Take 1 tablet PO once x 1 day, then repeat on days 3, 5, 7, and 9 valACYclovir (VALTREX) 500 mg tablet Take 1 tablet by mouth once daily. rizatriptan ([employer]) 5 mg disintegrating tablet Take 1 tablet by mouth as needed for migraine headache (see administration instructions). May repeat in 2 hours if needed cyanocobalamin (VITAMIN B-12) 1,000 mcg tab Take 2 tablets by mouth once daily. blood sugar diagnostic (BLOOD GLUCOSE TEST) test strip Test blood sugar(s) 2 times daily. Dx: Type 2 DM - Uncontrolled E11.65 Insulin: No Lancets lancets Test blood sugar(s) 2 times daily. Dx: Type 2 DM - Uncontrolled E11.65 Insulin: No WALKER ROLLATOR SEAT WITH 6 WHEELS - RED Dx: balance disorder, bilateral knee pain, chronic low back pain loratadine (CLARITIN) 10 mg tablet Take 1 tablet by mouth once daily. For allergies albuterol HFA (PROAIR HFA) 90 mcg/actuation inhaler Inhale 2 Puffs as instructed every 6 hours as needed. naproxen (NAPROSYN) 500 mg tablet Take 1 tablet by mouth twice daily as needed for Pain (for pain). Take with food baclofen (LIORESAL) 10 mg tablet Take 1 tablet by mouth three times daily as needed (Muscle spasms). cyclobenzaprine (FLEXERIL) 10 mg tablet Take 1 tablet by mouth three times daily as needed for Muscle Spasm. ibuprofen (MOTRIN) 800 mg tablet Take 1 tablet by mouth every 8 hours as needed for Pain. Take with food. lidocaine (SALONPAS) 4 % patch Apply 1 application as directed once daily. cyclobenzaprine (FLEXERIL) 10 mg tablet Take 1 tablet by mouth twice daily as needed for Muscle Spasm. EPINEPHrine (EPIPEN) 0.3 mg/0.3 mL auto-injector Use as directed for allergic reaction albuterol 90 mcg/actuation aero Inhale 2 Puffs as instructed every 4 hours as needed. triamcinolone acetonide (KENALOG) 0.1 % cream Apply 1 application to affected area twice daily as needed (rash on legs). Apply sparingly to area for rash/itching. pregabalin (LYRICA) 75 mg capsule Take 1 capsule by mouth three times daily as needed (lumbar low back pain and sciatica) for up to 30 days. hydroCHLOROthiazide (HYDRODIURIL, ESIDRIX) 50 mg tablet Take 1 tablet by mouth once daily. (Patient not taking: Reported on 07/14/2020 ) cholecalciferol (VITAMIN D3) 5,000 unit tab Take 1 tablet by mouth once daily. losartan (COZAAR) 100 mg tablet take 1 tablet by mouth once daily COMPOUNDED PRESCRIPTION Order: BLOOD PRESSURE cuff Dx: essential hypertension FAMILY HISTORY Problem Relation Age of Onset Alcohol/Drug Mother Arthritis Mother Asthma Mother Emphysema Mother Diabetes Mother Hypertension Mother Psychiatry Mother BIPOLAR Stroke Mother Breast Cancer Maternal Grandmother Cancer Maternal Grandfather LUNG CANCER Arthritis Maternal Uncle Asthma Maternal Aunt X2 Hypertension Maternal (more content not included)... [facility] 01-11-2023 Note HNO ID: [id number] Author: Xiang Ren, DO Service: ? Author Type: Physician Type: Progress Notes Filed: 01/16/2023 9:47 PM Note Text: In lieu of an in person visit due to coronavirus COVID 19 pandemic concerns, a virtual visit was performed with patient. Patient is aware that I am not fully able to assess symptoms and do a full physical exam including vital signs in office at this time. Patient consents to the visit. VIRTUAL VISIT PROGRESS NOTE This is a virtual visit using [employer] video visit. It required patient-provider interaction for the medical decision making as documented below. I have communicated my name and active licensure. The patient's identity and physical location were verified at the time of this visit. Either the patient or their legal sales representative metals has been informed of the risks and benefits of -- and alternatives to -- treatment through a remote evaluation and consents to proceed with the evaluation remotely. Marcie Nixon is a 27 year old female seen for follow up Insomnia, chronic. Comes and goes, has tried Melatonin without relief. Never on prescription medication in the past- was started on trazodone at last virtual VISIT in Sep. Has a fmhx of insomnia in mother and aunt. Had previously tried magnesium, melatonin and benadryl sleep aides over the counter only. Obesity, struggling with trying to lose weight, has been losing and gaining same 10 lbs recently. Weight is 335 lbs now. Has been exercising 2-3 days a week. Has recently been started on trulicity over the last 2-3 months and tolerating 0.75 mg a week well- would be interested in a dose increase at this time. Would like to restart Adipex as well- has tolerated well in the past. BMI 59.34 Type 2 diabetes, taking metformin 1000 mg twice a day, blood sugar fasting 110-130s. Still feels it isn't helping with her weight loss as well. Has recently been started on trulicity over the last 2-3 months and tolerating 0.75 mg a week well- would be interested in a dose increase at this time. Low back pain, states that the lyrica medication is helping but still struggling with some sciatica pain, she is wondering if dose of medication can be increased, no SE with medication Vitamin D deficiency, taking supplement. Long standing anxiety symptoms. Has been improved in the past with prn use of Ativan for panic symptoms. Interested in restarting this medication if able. . HISTORY REVIEWED (electronic chart updated): PAST MEDICAL HISTORY Diagnosis Date Anemia 2007 iron deficiency Asthma mild intermittent allergic related Depression seasonal Dyslexia Essential hypertension Fatty liver 2008 Hard of hearing LEFT EAR, congenital Hypercholesteremia 09/2014 Impaired fasting glucose 09/2014 Type 2 diabetes mellitus with hyperglycemia, without long-term current use of insulin (HCC) 07/10/2022 Vitamin D deficiency 09/2014 PAST SURGICAL HISTORY Procedure Laterality Date MYRINGOTOMY ASPIRAND/EUSTACHIAN TUBE NFLTJ ANES Myringotomy/tubes PAST SURGICAL HISTORY OF LAZY EYE CORRECTION LEFT EYE PAST SURGICAL HISTORY OF 03/21/2018 Cysts removed off of both Ovaries TONSILLECTOMY PRIMARY/SECONDARY Tonsillectomy FAMILY HISTORY Problem Relation Age of Onset Alcohol/Drug Mother Arthritis Mother Asthma Mother Emphysema Mother Diabetes Mother Hypertension Mother Psychiatry Mother BIPOLAR Stroke Mother Breast Cancer Maternal Grandmother Cancer Maternal Grandfather LUNG CANCER Arthritis Maternal Uncle Asthma Maternal Aunt X2 Hypertension Maternal Aunt Lipids Maternal Aunt Psychiatry Maternal Aunt BIPOLAR Social History Tobacco Use Smoking status: Never Smokeless tobacco: Never Substance Use Topics Alcohol use: No Drug use: No Current Outpatient Medications Medication Sig LORazepam (ATIVAN) 1 mg tablet Take 1 tablet by mouth once daily as needed (anxiety) for up to 30 days. dulaglutide (TRULICITY) 1.5 mg/0.5 mL pen injector Inject 1.5 mg subcutaneously one time a week. Inject once per week. Discard Pen After Phentermine HCl (ADIPEX-P) 37.5 mg tablet Take 1 tablet by mouth once daily for 30 days. In the morning, BMI 60.05 pregabalin (LYRICA) 75 mg capsule Take 1 capsule by mouth three times daily as needed (lumbar low back pain and sciatica) for up to 30 days. cholecalciferol, Vitamin D3, (VITAMIN D3) 1,250 mcg (50,000 unit) cap capsule Take 1 capsule by mouth one time a week. metFORMIN (GLUCOPHAGE) 1,000 mg tablet Take 1 tablet by mouth twice daily with meals. traZODone (DESYREL) 100 mg tablet Take 1-2 tablets by mouth daily at bedtime. fluconazole (DIFLUCAN) 200 mg tablet Take 1 tablet PO once x 1 day, then repeat on days 3, 5, 7, and 9 valACYclovir (VALTREX) 500 mg tablet Take 1 tablet by mouth once daily. rizatriptan ([employer]) 5 mg disintegrating tablet Take 1 tablet by mouth as needed for migraine headache (see administ (more content not included)... [facility] 01-11-2023 History of Presen t illness Narrative In lieu of an in person visit due to coronavirus COVID 19 pandemic concerns, a virtual visit was performed with patient. Patient is aware that I am not fully able to assess symptoms and do a full physical exam including vital signs in office at this time. Patient consents to the visit. VIRTUAL VISIT PROGRESS NOTE This is a virtual visit using [employer] video visit. It required patient-provider interaction for the medical decision making as documented below. I have communicated my name and active licensure. The patient's identity and physical location were verified at the time of this visit. Either the patient or their legal sales representative metals has been informed of the risks and benefits of -- and alternatives to -- treatment through a remote evaluation and consents to proceed with the evaluation remotely. Marcie Nixon is a 27 year old female seen for follow up Insomnia, chronic. Comes and goes, has tried Melatonin without relief. Never on prescription medication in the past- was started on trazodone at last virtual VISIT in Sep. Has a fmhx of insomnia in mother and aunt. Had previously tried magnesium, melatonin and benadryl sleep aides over the counter only. Obesity, struggling with trying to lose weight, has been losing and gaining same 10 lbs recently. Weight is 335 lbs now. Has been exercising 2-3 days a week. Has recently been started on trulicity over the last 2-3 months and tolerating 0.75 mg a week well- would be interested in a dose increase at this time. Would like to restart Adipex as well- has tolerated well in the past. BMI 59.34 Type 2 diabetes, taking metformin 1000 mg twice a day, blood sugar fasting 110-130s. Still feels it isn't helping with her weight loss as well. Has recently been started on trulicity over the last 2-3 months and tolerating 0.75 mg a week well- would be interested in a dose increase at this time. Low back pain, states that the lyrica medication is helping but still struggling with some sciatica pain, she is wondering if dose of medication can be increased, no SE with medication Vitamin D deficiency, taking supplement. Long standing anxiety symptoms. Has been improved in the past with prn use of Ativan for panic symptoms. Interested in restarting this medication if able. . HISTORY REVIEWED (electronic chart updated): PAST MEDICAL HISTORY Diagnosis Date Anemia 2007 iron deficiency Asthma mild intermittent allergic related Depression seasonal Dyslexia Essential hypertension Fatty liver 2009 Hard of hearing LEFT EAR, congenital Hypercholesteremia 09/2014 Impaired fasting glucose 09/2014 Type 2 diabetes mellitus with hyperglycemia, without long-term current use of insulin (HCC) 07/10/2022 Vitamin D deficiency 09/2014 PAST SURGICAL HISTORY Procedure Laterality Date MYRINGOTOMY ASPIR&/EUSTACHIAN TUBE NFLTJ ANES Myringotomy/tubes PAST SURGICAL HISTORY OF LAZY EYE CORRECTION LEFT EYE PAST SURGICAL HISTORY OF 03/21/2018 Cysts removed off of both Ovaries TONSILLECTOMY PRIMARY/SECONDARY <AGE 12 Tonsillectomy FAMILY HISTORY Problem Relation Age of Onset Alcohol/Drug Mother Arthritis Mother Asthma Mother Emphysema Mother Diabetes Mother Hypertension Mother Psychiatry Mother BIPOLAR Stroke Mother Breast Cancer Maternal Grandmother Cancer Maternal Grandfather LUNG CANCER Arthritis Maternal Uncle Asthma Maternal Aunt X2 Hypertension Maternal Aunt Lipids Maternal Aunt Psychiatry Maternal Aunt BIPOLAR Social History Tobacco Use Smoking status: Never Smokeless tobacco: Never Substance Use Topics Alcohol use: No Drug use: No Current Outpatient Medications Medication Sig LORazepam (ATIVAN) 1 mg tablet Take 1 tablet by mouth once daily as needed (anxiety) for up to 30 days. dulaglutide (TRULICITY) 1.5 mg/0.5 mL pen injector Inject 1.5 mg subcutaneously one time a week. Inject once per week. Discard Pen After Phentermine HCl (ADIPEX-P) 37.5 mg tablet Take 1 tablet by mouth once daily for 30 days. In the morning, BMI 60.05 pregabalin (LYRICA) 75 mg capsule Take 1 capsule by mouth three times daily as needed (lumbar low back pain and sciatica) for up to 30 days. cholecalciferol, Vitamin D3, (VITAMIN D3) 1,250 mcg (50,000 unit) cap capsule Take 1 capsule by mouth one time a week. metFORMIN (GLUCOPHAGE) 1,000 mg tablet Take 1 tablet by mouth twice daily with meals. traZODone (DESYREL) 100 mg tablet Take 1-2 tablets by mouth daily at bedtime. fluconazole (DIFLUCAN) 200 mg tablet Take 1 tablet PO once x 1 day, then repeat on days 3, 5, 7, and 9 valACYclovir (VALTREX) 500 mg tablet Take 1 tablet by mouth once daily. rizatriptan ([employer]) 5 mg disintegrating tablet Take 1 tablet by mouth as needed for migraine headache (see administration instructions). May repeat in 2 hours if needed triamcinolone acetonide (KENALOG) 0.1 % cream Apply 1 application to affected area twice daily as needed (rash on legs). Apply sparingly to area for rash/itching. cyanocobalamin (VITAMIN B-12) 1,000 mcg tab Take 2 tablets by mouth once daily. blood sugar diagnostic (BLOOD GLUCOSE TEST) test strip Test blood sugar(s) 2 times daily. Dx: Type 2 DM - Uncontrolled E11.65 Insulin: No Lancets lancets Test blood sugar(s) 2 times daily. Dx: Type 2 DM - Uncontrolled E11.65 Insulin: No WALKER ROLLATOR SEAT WITH 6 WHEELS - RED Dx: balance disorder, bilateral knee pain, chronic low back pain loratadine (CLARITIN) 10 mg tablet Take 1 tablet by mouth once daily. For allergies albuterol HFA (PROAIR HFA) 90 mcg/actuation inhaler Inhale 2 Puffs as instructed every 6 hours as needed. naproxen (NAPROSYN) 500 mg tablet Take 1 tablet by mouth twice daily as needed for Pain (for pain). Take with food baclofen (LIORESAL) 10 mg tablet Take 1 tablet by mouth three times daily as needed (Muscle spasms). cyclobenzaprine (FLEXERIL) 10 mg tablet Take 1 tablet by mouth three times daily as needed for Muscle Spasm. (Patient not taking: Reported on 01/06/2021 ) ibuprofen (MOTRIN) 800 mg tablet Take 1 tablet by mouth every 8 hours as needed for Pain. Take with food. lidocaine (SALONPAS) 4 % patch Apply 1 application as directed once daily. hydroCHLOROthiazide (HYDRODIURIL, ESIDRIX) 50 mg tablet Take 1 tablet by mouth once daily. (Patient not taking: Reported on 07/14/2020 ) cyclobenzaprine (FLEXERIL) 10 mg tablet Take 1 tablet by mouth twice daily as needed for Muscle Spasm. (Patient not taking: Reported on 01/06/2021 ) EPINEPHrine (EPIPEN) 0.3 mg/0.3 mL auto-injector Use as directed for allergic reaction cholecalciferol (VITAMIN D3) 5,000 unit tab Take 1 tablet by mouth once daily. losartan (COZAAR) 100 mg tablet take 1 tablet by mouth once daily COMPOUNDED PRESCRIPTION Order: BLOOD PRESSURE cuff Dx: essential hypertension albuterol 90 mcg/actuation aero Inhale 2 Puffs as instructed every 4 hours as needed. No current facility-administered medications for this visit. ALLERGIES Allergen Reactions Onion Anaphylaxis [place] Oil Hives, Swelling, Itching REVIEW OF SYSTEMS: As noted in HPI PHYSICAL EXAMINATION: VIDEO EXAM: (if completed, performed via video enabled technology) GENERAL: alert and appropriate, in no distress, appears anxious, and obese Appropriately dressed ASSESSMENT: (F41.8) Situational anxiety (primary encounter diagnosis) (E11.65) Type 2 diabetes mellitus with hyperglycemia, without long-term current use of insulin (HCC) (E66.01, Z68.44) Morbid obesity with BMI of 60.0-69.9, adult (HCC) (M54.32) Left sided sciatica (M54.42, G89.29) Chronic left-sided low back pain with left-sided sciatica (E88.81) Dysmetabolic syndrome PLAN: Okay for prn use of Ativan for panic attack symptoms. She is aware of possible SE with medication. Sciatica symptoms. Increase lyrica dosing to see if this is more effective for symptom management. Need for continue efforts for weight loss without is affecting her symptoms as well. Obesity, start on Adipex, she is aware of possible SE with medication, f/u in 2-3 months Diabetes, type 2, taking metformin, increase the dose of trulicity as well which has been sent into the pharmacy. PDMP website checked and validated. All prescriptions have been APPROPRIATELY filled. No suspicious activity was identified. 01/16/2023 by Xiang Ren DO There are no Patient Instructions on file for this visit. I spent a total of 40 minutes on the date of the service which included preparing to see the patient, [id number] patient care, completing clinical documentation, obtaining and/or reviewing separately obtained history, performing a medically appropriate examination, counseling and educating the patient/family/caregiver, and ordering medications, tests, or procedures Xiang Ren DO documented in this encounter [facility] 10-03-2022 Note HNO ID: [id number] Author: Xiang Ren DO Service: ? Author Type: Physician Type: Progress Notes Filed: 10/08/2022 7:20 AM Note Text: In lieu of an in person visit due to coronavirus COVID 19 pandemic concerns, a virtual visit was performed with patient. Patient is aware that I am not fully able to assess symptoms and do a full physical exam including vital signs in office at this time. Patient consents to the visit. VIRTUAL VISIT PROGRESS NOTE This is a virtual visit using [employer] video visit. It required patient-provider interaction for the medical decision making as documented below. Marcie Nixon is a 26 year old adult seen for follow up Insomnia, chronic. Comes and goes, has tried Melatonin without relief. Never on prescription medication. Has a fmhx of insomnia in mother and aunt. Has tried magnesium, melatonin and benadryl sleep aides over the counter only. Obesity, struggling with trying to lose weight, has been losing and gaining same 10 lbs recently. Weight is 339 lbs now. Has been exercising 2-3 days a week. Type 2 diabetes, taking metformin 1000 mg twice a day, blood sugar fasting 110-130s. Still feels it isn't helping with her weight loss as well. Low back pain, states that the lyrica medication is helping but still struggling with some sciatica pain, she is wondering if dose of medication can be increased, no SE with medication Vitamin D deficiency, taking supplement. HISTORY REVIEWED (electronic chart updated): PAST MEDICAL HISTORY Diagnosis Date Anemia 2007 iron deficiency Asthma mild intermittent allergic related Depression seasonal Dyslexia Essential hypertension Fatty liver 2009 Hard of hearing LEFT EAR, congenital Hypercholesteremia 09/2014 Impaired fasting glucose 09/2014 Type 2 diabetes mellitus with hyperglycemia, without long-term current use of insulin (HCC) 07/10/2022 Vitamin D deficiency 09/2014 PAST SURGICAL HISTORY Procedure Laterality Date MYRINGOTOMY ASPIRAND/EUSTACHIAN TUBE NFLTJ ANES Myringotomy/tubes PAST SURGICAL HISTORY OF LAZY EYE CORRECTION LEFT EYE PAST SURGICAL HISTORY OF 03/21/2018 Cysts removed off of both Ovaries TONSILLECTOMY PRIMARY/SECONDARY Tonsillectomy FAMILY HISTORY Problem Relation Age of Onset Alcohol/Drug Mother Arthritis Mother Asthma Mother Emphysema Mother Diabetes Mother Hypertension Mother Psychiatry Mother BIPOLAR Stroke Mother Breast Cancer Maternal Grandmother Cancer Maternal Grandfather LUNG CANCER Arthritis Maternal Uncle Asthma Maternal Aunt X2 Hypertension Maternal Aunt Lipids Maternal Aunt Psychiatry Maternal Aunt BIPOLAR Social History Tobacco Use Smoking status: Never Smokeless tobacco: Never Substance Use Topics Alcohol use: No Drug use: No Current Outpatient Medications Medication Sig traZODone (DESYREL) 100 mg tablet Take 1-2 tablets by mouth daily at bedtime. valACYclovir (VALTREX) 500 mg tablet Take 1 tablet by mouth once daily. rizatriptan ([employer]) 5 mg disintegrating tablet Take 1 tablet by mouth as needed for migraine headache (see administration instructions). May repeat in 2 hours if needed triamcinolone acetonide (KENALOG) 0.1 % cream Apply 1 application to affected area twice daily as needed (rash on legs). Apply sparingly to area for rash/itching. metFORMIN (GLUCOPHAGE) 1,000 mg tablet Take 1 tablet by mouth twice daily with meals. cholecalciferol, Vitamin D3, (VITAMIN D3) 1,250 mcg (50,000 unit) cap capsule Take 1 capsule by mouth one time a week. cyanocobalamin (VITAMIN B-12) 1,000 mcg tab Take 2 tablets by mouth once daily. blood sugar diagnostic (BLOOD GLUCOSE TEST) test strip Test blood sugar(s) 2 times daily. Dx: Type 2 DM - Uncontrolled E11.65 Insulin: No Lancets lancets Test blood sugar(s) 2 times daily. Dx: Type 2 DM - Uncontrolled E11.65 Insulin: No WALKER ROLLATOR SEAT WITH 6 WHEELS - RED Dx: balance disorder, bilateral knee pain, chronic low back pain loratadine (CLARITIN) 10 mg tablet Take 1 tablet by mouth once daily. For allergies pregabalin (LYRICA) 25 mg capsule Take 1 capsule by mouth three times daily as needed (lumbar low back pain and sciatica) for up to 30 days. albuterol HFA (PROAIR HFA) 90 mcg/actuation inhaler Inhale 2 Puffs as instructed every 6 hours as needed. fluconazole (DIFLUCAN) 200 mg tablet Take 1 tablet PO once x 1 day, then repeat on days 3, 5, 7, and 9 naproxen (NAPROSYN) 500 mg tablet Take 1 tablet by mouth twice daily as needed for Pain (for pain). Take with food baclofen (LIORESAL) 10 mg tablet Take 1 tablet by mouth three times daily as needed (Muscle spasms). cyclobenzaprine (FLEXERIL) 10 mg tablet Take 1 tablet by mouth three times daily as needed for Muscle Spasm. (Patient not taking: Reported on 01/06/2021 ) ibuprofen (MOTRIN) 800 mg tablet Take 1 tablet by mouth every 8 hours as needed for Pain. Take with food. lidocaine (DEE (more content not included)... [facility] 08-13-2022 Note HNO ID: [id number] Author: Xiang Ren, DO Service: ? Author Type: Physician Type: Progress Notes Filed: 08/15/2022 7:11 AM Note Text: In lieu of an in person visit due to coronavirus COVID 19 pandemic concerns, a virtual visit was performed with patient. Patient is aware that I am not fully able to assess symptoms and do a full physical exam including vital signs in office at this time. Patient consents to the visit. VIRTUAL VISIT PROGRESS NOTE This is a virtual visit using [employer] video visit. It required patient-provider interaction for the medical decision making as documented below. Marcie Nixon is a 26 year old adult seen for follow up Headache, about 4 days ago, occurred for the first time, had a zig zag sensation and associated nausea prior to the headache. Has a long standing fmhx of migraine headaches in mother and grandmother etc. Took some NSAIDs and laid down in the dark and waited until symptoms improved. Headache went to the right side when worsened. Does have a history of tension headaches- especially with temp changes. Oral herpes outbreaks, getting 1 outbreak per month, diagnosed in the past, sore when they come. Would like to be started on a preventative. Skin lesions on legs, 2-3 spots, red, raised, itching and sometimes flaking, not improving with anti fungal cream. Type 2 diabetes, recently diagnosed, Hyperglycemia, glucose readings were 80-90s fasting when restarting metformin about 1 month ago, now glucose fasting readings in the AM are up to 150s. Trying to cut back on carbohydrate intake. Has cut out sugars in her diet- has cut out soda and juice. HTN, feels this is improving control, no new dyspnea or chest pressure, taking medications as prescribed HISTORY REVIEWED (electronic chart updated): PAST MEDICAL HISTORY Diagnosis Date Anemia 2007 iron deficiency Asthma mild intermittent allergic related Depression seasonal Dyslexia Essential hypertension Fatty liver 2009 Hard of hearing LEFT EAR, congenital Hypercholesteremia 09/2014 Impaired fasting glucose 09/2014 Type 2 diabetes mellitus with hyperglycemia, without long-term current use of insulin ([facility]) 07/10/2022 Vitamin D deficiency 09/2014 PAST SURGICAL HISTORY Procedure Laterality Date MYRINGOTOMY ASPIRAND/EUSTACHIAN TUBE NFLTJ ANES Myringotomy/tubes PAST SURGICAL HISTORY OF LAZY EYE CORRECTION LEFT EYE PAST SURGICAL HISTORY OF 03/21/2018 Cysts removed off of both Ovaries TONSILLECTOMY PRIMARY/SECONDARY Tonsillectomy FAMILY HISTORY Problem Relation Age of Onset Alcohol/Drug Mother Arthritis Mother Asthma Mother Emphysema Mother Diabetes Mother Hypertension Mother Psychiatry Mother BIPOLAR Stroke Mother Breast Cancer Maternal Grandmother Cancer Maternal Grandfather LUNG CANCER Arthritis Maternal Uncle Asthma Maternal Aunt X2 Hypertension Maternal Aunt Lipids Maternal Aunt Psychiatry Maternal Aunt BIPOLAR Social History Tobacco Use Smoking status: Never Smokeless tobacco: Never Substance Use Topics Alcohol use: No Drug use: No Current Outpatient Medications Medication Sig cholecalciferol, Vitamin D3, (VITAMIN D3) 1,250 mcg (50,000 unit) cap capsule Take 1 capsule by mouth one time a week. metFORMIN (GLUCOPHAGE) 500 mg tablet Take 1 tablet by mouth twice daily with meals. cyanocobalamin (VITAMIN B-12) 1,000 mcg tab Take 2 tablets by mouth once daily. blood sugar diagnostic (BLOOD GLUCOSE TEST) test strip Test blood sugar(s) 2 times daily. Dx: Type 2 DM - Uncontrolled E11.65 Insulin: No Lancets lancets Test blood sugar(s) 2 times daily. Dx: Type 2 DM - Uncontrolled E11.65 Insulin: No WALKER ROLLATOR SEAT WITH 6 WHEELS - RED Dx: balance disorder, bilateral knee pain, chronic low back pain loratadine (CLARITIN) 10 mg tablet Take 1 tablet by mouth once daily. For allergies pregabalin (LYRICA) 25 mg capsule Take 1 capsule by mouth three times daily as needed (lumbar low back pain and sciatica) for up to 30 days. albuterol HFA (PROAIR HFA) 90 mcg/actuation inhaler Inhale 2 Puffs as instructed every 6 hours as needed. fluconazole (DIFLUCAN) 200 mg tablet Take 1 tablet PO once x 1 day, then repeat on days 3, 5, 7, and 9 naproxen (NAPROSYN) 500 mg tablet Take 1 tablet by mouth twice daily as needed for Pain (for pain). Take with food baclofen (LIORESAL) 10 mg tablet Take 1 tablet by mouth three times daily as needed (Muscle spasms). cyclobenzaprine (FLEXERIL) 10 mg tablet Take 1 tablet by mouth three times daily as needed for Muscle Spasm. (Patient not taking: Reported on 01/06/2021 ) ibuprofen (MOTRIN) 800 mg tablet Take 1 tablet by mouth every 8 hours as needed for Pain. Take with food. lidocaine (SALONPAS) 4 % patch Apply 1 application as directed once daily. hydroCHLOROthiazide (HYDRODIURIL, ESIDRIX) 50 mg tablet Take 1 tablet by mouth once daily. (Patient not taking: Reported on (more content not included)... [facility] 07-09-2022 Note HNO ID: [id number] Author: Xiang Ren, DO Service: ? Author Type: Physician Type: Progress Notes Filed: 07/10/2022 7:13 AM Note Text: In lieu of an in person visit due to coronavirus COVID 19 pandemic concerns, a virtual visit was performed with patient. Patient is aware that I am not fully able to assess symptoms and do a full physical exam including vital signs in office at this time. Patient consents to the visit. VIRTUAL VISIT PROGRESS NOTE This is a virtual visit using [employer] video visit. It required patient-provider interaction for the medical decision making as documented below. Marcie Nixon is a 26 year old adult seen for follow up Seen by virtual visit on 06/13/22 as below Patient admits that has been intentionally neglecting health and routine office and health follow ups due to previous medical surgical issues with cholecystitis and need for emergency cholecystectomy and hospitalization subsequently. Right knee pain, present x months, thinks started when low back pain left sided sciatica symptoms were flared up and was standing and walking favoring left side. Denies any injuries. No obvious swelling, no use of any medications for her knee pain. Has been using gabapentin in the past for low back pain- was at the highest dose of 900 mg 3 times a day and was just causing SE and not helping pain- is interested in trying a knee brace and trying a different nerve medication for sciatica. PCOS, dysmetabolic syndrome, insulin resistance, was taking metformin medication in the past, stopped taking the medication recently due to cholecystectomy. Admits needs to restart medication- asking if this is okay Hasn't had recent fasting labs Ring worm rash, legs, present x weeks, not helping with antifungal cream, has had in the past and required oral treatment, itching, no fevers or drainage. Diagnosed with allergy symptoms and feels the loratidine if taking it daily helps prevent allergy eye itching and redness as well as sinus pressure and ear pressure. Asking for refills of medication. Hasn't had recent fasting labs. Currently She had labs completed as below New onset of diabetes type 2, previously did have IFG and dysmetabolic syndrome only in the past. Now patient is interested in restarting metformin and having a glucometer to start checking her blood glucose. Patient states that does overall eats a healthy diet with salad and proteins, no soda any more in diet and cut out most sugars. Really does understands need for weight loss as well. Hemoglobin A1C Date Value Ref Range Status 06/20/2022 6.9 (H) 4.3 - 5.6 % Final Comment: [place] [employer] guidelines indicate that patients with HgbA1c in the range 5.7-6.4% are at increased risk for development of diabetes, and intervention by lifestyle modification may be beneficial. HgbA1c greater or equal to 6.5% is considered diagnostic of diabetes. 10/22/2018 6.1 (H) 4.3 - 5.6 % Final Comment: [place] [employer] guidelines indicate that patients with HgbA1c in the range 5.7-6.4% are at increased risk for development of diabetes, and intervention by lifestyle modification may be beneficial. HgbA1c greater or equal to 6.5% is considered diagnostic of diabetes. 10/19/2014 5.8 4.0 - 6.0 % Final Comment: [place] [employer] guidelines indicate that patients with HgbA1c in the range 5.7-6.4% are at increased risk for development of diabetes, and intervention by lifestyle modification may be beneficial. HgbA1c greater or equal to 6.5% is considered diagnostic of diabetes. Glucose (mg/dL) Date Value 06/20/2022 100 10/19/2014 105 Potassium (mmol/L) Date Value 06/20/2022 4.0 10/19/2014 4.4 Sodium (mmol/L) Date Value 06/20/2022 137 10/19/2014 137 Chloride (mmol/L) Date Value 06/20/2022 101 10/19/2014 102 CO2 (mmol/L) Date Value 06/20/2022 21 10/19/2014 19 Creatinine (mg/dL) Date Value 06/20/2022 0.60 12/24/2018 0.57 BUN (mg/dL) Date Value 06/20/2022 7 12/24/2018 9 Anion Gap (mmol/L) Date Value 06/20/2022 15 10/19/2014 16 Calcium (mg/dL) Date Value 10/19/2014 9.6 Calcium, Total (mg/dL) Date Value 06/20/2022 9.9 Protein, Total (g/dL) Date Value 06/20/2022 8.9 12/24/2018 8.5 Albumin (g/dL) Date Value 06/20/2022 4.1 12/24/2018 4.5 Bilirubin, Total (mg/dL) Date Value 06/20/2022 0.6 10/19/2014 0.3 Alkaline Phosphatase (U/L) Date Value 06/20/2022 101 10/19/2014 90 AST (U/L) Date Value 06/20/2022 22 12/24/2018 20 ALT (U/L) Date Value 06/20/2022 19 12/24/2018 15 Hemoglobin (g/dL) Date Value 06/20/2022 13.0 12/24/2018 13.5 Hematocrit (%) Date Value 06/20/2022 42.7 12/24/2018 45.9 WBC (k/uL) Date Value 06/20/2022 10.08 12/24/2018 16.56 Dyslipidemia, admits that does eat a lot of cheese and dairy products Cholesterol, Total Date Value Ref Range Status 09/ (more content not included)... [facility] 06-20-2022 Note HNO ID: [id number] Author: RT Suleman(R) Service: Nuclear Medicine Author Type: Technologist Type: Progress Notes Filed: 06/20/2022 1:02 PM Note Text: Radiology Service Progress Note PATIENT NAME: Marcie Nixon DATE OF SERVICE: June 20, 2022 TIME: 12:43 PM PATIENT IDENTITY VERIFICATION COMPLETED USING TWO (2) IDENTIFIERS: Name and Date of confirmed by patient verbally. FALL SCREENING: Has the patient had 2 falls in the last year or 1 fall with injury or currently using an Ambulatory Assistive Device (Walker, Cane, Wheelchair, Crutches, etc.)? No PATIENT GENDER DATA: Female. status: : No status: NO. PATIENT RELEVANT IMPLANT DATA REVIEWED: Not Applicable RADIOLOGY DEPARTMENT: General X-ray: Exam(s) Completed: Lower Extremity X-Ray(s): Knee, AP / Lat / Tunne / Merchant Right and Wt. Bearing PERIPHERAL IV DATA: Not applicable SIGNED BY: RT Suleman(R) June 20, 2022 12:43 PM [facility] 06-13-2022 Note HNO ID: [id number] Author: Xiang Ren, DO Service: ? Author Type: Physician Type: Progress Notes Filed: 06/13/2022 9:31 PM Note Text: In lieu of an in person visit due to coronavirus COVID 19 pandemic concerns, a virtual visit was performed with patient. Patient is aware that I am not fully able to assess symptoms and do a full physical exam including vital signs in office at this time. Patient consents to the visit. VIRTUAL VISIT PROGRESS NOTE This is a virtual visit using [employer] video visit. It required patient-provider interaction for the medical decision making as documented below. Marcie Nixon is a 26 year old adult seen for follow up Patient admits that has been intentionally neglecting health and routine office and health follow ups due to previous medical surgical issues with cholecystitis and need for emergency cholecystectomy and hospitalization subsequently. Right knee pain, present x months, thinks started when low back pain left sided sciatica symptoms were flared up and was standing and walking favoring left side. Denies any injuries. No obvious swelling, no use of any medications for her knee pain. Has been using gabapentin in the past for low back pain- was at the highest dose of 900 mg 3 times a day and was just causing SE and not helping pain- is interested in trying a knee brace and trying a different nerve medication for sciatica. PCOS, dysmetabolic syndrome, insulin resistance, was taking metformin medication in the past, stopped taking the medication recently due to cholecystectomy. Admits needs to restart medication- asking if this is okay Hasn't had recent fasting labs Ring worm rash, legs, present x weeks, not helping with antifungal cream, has had in the past and required oral treatment, itching, no fevers or drainage. Diagnosed with allergy symptoms and feels the loratidine if taking it daily helps prevent allergy eye itching and redness as well as sinus pressure and ear pressure. Asking for refills of medication. Hasn't had recent fasting labs. HISTORY REVIEWED (electronic chart updated): PAST MEDICAL HISTORY Diagnosis Date Anemia 2007 iron deficiency Asthma mild intermittent allergic related Depression seasonal Dyslexia Essential hypertension Fatty liver 2008 Hard of hearing LEFT EAR, congenital Hypercholesteremia 09/2014 Impaired fasting glucose 09/2014 Vitamin D deficiency 09/2014 PAST SURGICAL HISTORY Procedure Laterality Date INCISION EARDRUM,ASPIR,GEN ANESTH Myringotomy/tubes PAST SURGICAL HISTORY OF LAZY EYE CORRECTION LEFT EYE PAST SURGICAL HISTORY OF 03/21/2018 Cysts removed off of both Ovaries REMOVAL OF TONSILS,<12 Y/O Tonsillectomy FAMILY HISTORY Problem Relation Age of Onset Alcohol/Drug Mother Arthritis Mother Asthma Mother Emphysema Mother Diabetes Mother Hypertension Mother Psychiatry Mother BIPOLAR Stroke Mother Breast Cancer Maternal Grandmother Cancer Maternal Grandfather LUNG CANCER Arthritis Maternal Uncle Asthma Maternal Aunt X2 Hypertension Maternal Aunt Lipids Maternal Aunt Psychiatry Maternal Aunt BIPOLAR Social History Tobacco Use Smoking status: Never Smokeless tobacco: Never Substance Use Topics Alcohol use: No Drug use: No Current Outpatient Medications Medication Sig naproxen (NAPROSYN) 500 mg tablet Take 1 tablet by mouth twice daily as needed for Pain (for pain). Take with food baclofen (LIORESAL) 10 mg tablet Take 1 tablet by mouth three times daily as needed (Muscle spasms). cyclobenzaprine (FLEXERIL) 10 mg tablet Take 1 tablet by mouth three times daily as needed for Muscle Spasm. (Patient not taking: Reported on 01/06/2021 ) albuterol HFA (PROAIR HFA) 90 mcg/actuation inhaler Inhale 2 Puffs as instructed every 6 hours as needed. ibuprofen (MOTRIN) 800 mg tablet Take 1 tablet by mouth every 8 hours as needed for Pain. Take with food. gabapentin (NEURONTIN) 300 mg capsule Take 1 capsule by mouth three times daily for 30 days. lidocaine (SALONPAS) 4 % patch Apply 1 application as directed once daily. hydroCHLOROthiazide (HYDRODIURIL, ESIDRIX) 50 mg tablet Take 1 tablet by mouth once daily. (Patient not taking: Reported on 07/14/2020 ) cyclobenzaprine (FLEXERIL) 10 mg tablet Take 1 tablet by mouth twice daily as needed for Muscle Spasm. (Patient not taking: Reported on 01/06/2021 ) EPINEPHrine (EPIPEN) 0.3 mg/0.3 mL auto-injector Use as directed for allergic reaction cholecalciferol (VITAMIN D3) 5,000 unit tab Take 1 tablet by mouth once daily. losartan (COZAAR) 100 mg tablet take 1 tablet by mouth once daily COMPOUNDED PRESCRIPTION Order: BLOOD PRESSURE cuff Dx: essential hypertension albuterol 90 mcg/actuation aero Inhale 2 Puffs as instructed every 4 hours as needed. No current facility-administered medications for this visit. ALLERGIES Allergen Reactions Onion Anaphylaxis [place] (more content not included)... [facility] 01-26-2021 History of Presen t illness Narrative Pt's risk score is 63%. Problem: MARY ANNE Follow-Up Call where Pt indicated feeling a lost of interest in things and/or sad, hopeless, anxious, and empty. Assessment: Unable to reach Pt on 01/24/2021 and 01/25/2021. Plan: Unable to reach Pt. No further Interventions at this time. MARJORIE Enrique, MAIL LIST PROCESSOR Outpatient SW [phone] documented in this encounter [facility] 01-15-2021 Note DISCHARGE SUMMARY [place] [id number] HussainMikeMarcie Date of : 1995 25 year old female Attending Holly Maravilla MD Date of Admission 01/10/2021 Date of Discharge 01/15/21 [Principal Hospital Problem (Final Diagnosis)] Cholecystitis [Secondary Hospital Problems] Unsteady gait Discharge Procedure Orders HEAVY DUTY WHEELED WALKER [E0149] No future appointments. Activity No heavy lifting and no strenuous activity Diet No restrictions Disposition Home Functional Status Ambulatory with assistance Condition at Discharge, Satisfactory Reason for Hospitalization Acute Linda Cystitis Significant Findings Marked inflammed and tense gallbladder, purulent ascites, gallbladder with purulent drainage- decompressed and fluid sent to microbiology Hospital Course 25yoF with asthma, PCOS, back pain, obesity (BMI 64) presented on 01/10 with sharp RUQ pain x3 days and fever (101.1 F) and leukocytosis (WBC 17.8) and elevated bilirubin (T bili 1.6). RUQ US showed cholelithiasis and wall thickening (4mm). Pt underwent laparoscopic cholecystectomy on 01/[address] Maravilla which demonstrated markedly inflamed gallbladder with purulent ascites. Post-operative course was uneventful. Pt completed 4-day course of Zosyn given purulent ascites. Fluid culture grew ortega-sensitive enterococcus. Pt was placed on nocturnal O2 due to desaturations while sleeping, suggestive of obstructive sleep apnea, and this was weaned off completely prior to discharge. Pt was discharged 01/15. Marcie Nixon Home Medication Instructions GABRIELA:[id number] Printed on:01/15/21 0521 Medication Information baclofen (LIORESAL) 10 MG tablet Take 10 mg by mouth once. gabapentin (NEURONTIN) 300 MG capsule Take 300 mg by mouth 3 times daily. NAPROXEN ORAL Take by mouth. oxyCODONE 5 MG immediate release tablet Take 1 Tablet by mouth every 6 hours as needed for Pain for up to 3 days. polyethylene glycol (MiraLax) packet Dissolve 1 Packet in 8 ounces of liquid and drink daily. senna (SENOKOT) 8.6 MG tablet Take 1 Tablet by mouth daily as needed for Constipation. Gurpreet Villarreal MD Acute Care Surgery Pager [phone], Week-6p [place] Pager [phone], Week 6-6a, weekends Surgical Attending Note Patient Active Problem List: Cholecystitis [K81.9] Unsteady gait [R26.81] Marcie Nixon seen and examined, chart reviewed. Marcie Nixon is deemed ready for discharge with services arranged as per the Discharge Summary notes above. Following services provided in discharge planning by the medical team: -final examination -discussion of the hospital stay -instructions to all relevant caregivers for continuing care -preparation of discharge records, including time spent dictating a discharge summary; prescriptions; and referral forms for any follow-up services Less than 30 minutes of cumulative time was spent in the above mentioned activities as this patient's hospital course includes observation with a comprehensive history, comprehensive exam and medical decision-making of high complexity. Above discharge summary reviewed and agree with assessment and plan as per resident/physician drug safety assistant with discharge planning and disposition as per above note. Appropriate follow-up to be obtained with all services involved in patient care. Holly Maravilla MD [facility] 01-15-2021 Note ACUTE CARE SURGERY P EL NOTE Subjective: NAEO. Pain well controlled. Off Oxygen. Physical Exam: Vital sign ranges over the past 24 hours (retrieved 01/15/2021 at 6:35 AM): Tmax (24 hours): 98.8 ???F (37.1 ???C) Pulse Av.7 Min: 94 Max: 109 Systolic (24hrs), Av , Min:156 , Max:160 Diastolic (24hrs), Av, Min:80, Max:96 MAP (mmHg) Av mmHg Min: 105 mmHg Max: 113 mmHg Resp Av.7 Min: 16 Max: 18 SpO2 Av.7 % Min: 91 % Max: 93 % Gen: NAD, resting comfortably in bed Neuro: Alert and oriented Chest: breathing comfortably 3 L NC Abdomen: Soft, obese appropriately tender, nondistended, incisions with steristips, no bleeding noted Extremities: moving all extremities equally Ins and Outs: In: 1080 (6.6 mL/kg) [P.O.:1080] Out: - (0 mL/kg) Net: 1080 Weight: 164 kg Medications: Scheduled * senna 8.6 mg At Bedtime * docusate sodium 100 mg 2x Daily * polyethylene glycol 17 g Daily * gabapentin 300 mg 3x Daily * ketorolac 15 mg Every 6 hours * [NOV Hold] albuterol 2.5 mg Q4H RT * enoxaparin 0.5 mg/kg 2x Daily * acetaminophen 650 mg Every 6 hours PRN * albuterol 2.5 mg Q4H PRN * oxyCODONE 10 mg Q4H PRN * naloxone 0.4 mg PRN * oxyCODONE 5 mg Q4H PRN * ondansetron 4 mg Q6H PRN IV Labs: Basic Metabolic Panel Na K Cl CO2 Gap Glu BUN Cr Ca Mg PO4 01/14/21210 2.1 01/14/21210 136 3.6 99 26 15 102 8 0.67 7.8 01/13/21456 2.0 01/13/21456 136 3.3 97 28 14 93 8 0.67 7.8 CBC/PT/INR WBC RBC Hgb Hct MCV RDW Plt PT aPTT INR 01/15/21616 10.7 3.44 9.4 28.0 81 15.0 462 01/14/21210 10.9 3.48 9.5 28.5 82 15.3 473 01/13/21456 10.6 3.66 9.8 30.1 82 15.3 400 WBC/Diff Neutro% Segs% Bands% Lymphs% Monos% Eos% Basos% 01/15/21616 69.2 20.1 7.6 1.5 1.7 01/14/21210 71.9 18.2 6.6 2.8 0.6 01/13/21456 70.2 19.7 6.9 2.8 0.3 Hepatic/Biliary/Pancreas None Pyogen Culture Pyogen culture 01/10/21 1430 Positive Culture Report 2+ Enterococcus faecium Assessment/ Plan: Marcie Nixon is a 25 year old female with a history of asthma, PCOS, back pain, obesity, POD#5 s/p Lap Linda with purulent ascites. Otherwise doing well. Continued aggressive RT/IS. PT/OT following. Neuro: Tylenol/Oxy/Toradol for pain, home gabapentin CV: No home meds Pulm: PRN DuoNebs, O2 eval today, suspect she may need O2 supp for home going. FEN/GI: Cont. bowel regimen, Regular Diet, Zofran prn Renal: Replenish Mg<2, K<4 ID: Completed 4 days of IV Zosyn Endo: No issues Heme: Trend CBC PPx: Lovenox 80mg BID per protocol Dispo: Likely home today. Mayela Thorne, MS3 I have reviewed this medical students note and have edited the Subjective, Objective, Assessment and Plan to reflect the findings and plan of the medical team. Gurpreet Villarreal MD General Surgery Resident Acute Care Surgery Pager [phone], Weekdays 6a-6p [place] Pager [phone], Weekdays 6p-6a, weekends [facility] 01-14-2021 Note ACUTE CARE SURGERY P EL NOTE Subjective: NAEON. Afebrile. Pain acceptable. Physical Exam: Vital sign ranges over the past 24 hours (retrieved 01/14/2021 at 2:10 PM): Tmax (24 hours): 98.9 ???F (37.2 ???C) Pulse Av.1 Min: 82 Max: 99 Systolic (24hrs), Av , Min:118 , Max:156 Diastolic (24hrs), Av, Min:63, Max:91 MAP (mmHg) Av.7 mmHg Min: 75 mmHg Max: 106 mmHg Resp Av Min: 18 Max: 18 SpO2 Av.9 % Min: 91 % Max: 99 % Gen: NAD, resting comfortably in bed Neuro: Alert and oriented Chest: breathing comfortably 3 L NC Abdomen: Soft, obese appropriately tender, nondistended, incisions with steristips, no bleeding noted Extremities: moving all extremities equally Ins and Outs: In: 890 (5.4 mL/kg) [P.O.:840; I.V.:50 (0 mL/kg/hr)] Out: - (0 mL/kg) Net: 890 Weight: 164 kg Medications: Scheduled * senna 8.6 mg At Bedtime * docusate sodium 100 mg 2x Daily * polyethylene glycol 17 g Daily * gabapentin 300 mg 3x Daily * ketorolac 15 mg Every 6 hours * [MAR Hold] albuterol 2.5 mg Q4H RT * enoxaparin 0.5 mg/kg 2x Daily * acetaminophen 650 mg Every 6 hours PRN * albuterol 2.5 mg Q4H PRN * oxyCODONE 10 mg Q4H PRN * naloxone 0.4 mg PRN * oxyCODONE 5 mg Q4H PRN * ondansetron 4 mg Q6H PRN IV Labs: Basic Metabolic Panel Na K Cl CO2 Gap Glu BUN Cr Ca Mg PO4 01/14/21210 2.1 01/14/21210 136 3.6 99 26 15 102 8 0.67 7.8 01/13/21456 2.0 01/13/21456 136 3.3 97 28 14 93 8 0.67 7.8 01/12/21257 2.0 01/12/21257 138 3.9 100 28 14 91 6 0.68 8.1 CBC/PT/INR WBC RBC Hgb Hct MCV RDW Plt PT aPTT INR 01/14/21210 10.9 3.48 9.5 28.5 82 15.3 473 01/13/21456 10.6 3.66 9.8 30.1 82 15.3 400 01/12/21257 13.8 4.06 10.9 33.5 83 15.2 466 WBC/Diff Neutro% Segs% Bands% Lymphs% Monos% Eos% Basos% 01/14/21210 71.9 18.2 6.6 2.8 0.6 01/13/21456 70.2 19.7 6.9 2.8 0.3 01/12/21257 73.9 16.1 8.2 1.4 0.4 Hepatic/Biliary/Pancreas None Pyogen Culture Pyogen culture 01/10/21 1430 Positive Culture Report 2+ Enterococcus faecium Assessment/ Plan: Marcie Nixon is a 25 year old female with a history of asthma, PCOS, back pain, obesity, POD#4 s/p Lap Linda with purulent ascites. Otherwise doing well. Continued aggressive RT/IS. PT following, OT/RT consulted. Neuro: Tylenol/Oxy/Toradol for pain, restart home gabapentin CV: No home meds Pulm: PRN DuoNebs, RT recs pending, will do home O2 eval today, suspect she may need O2 supp for home going. FEN/GI: Start bowel regimen, Regular Diet, Zofran prn Renal: Replenish Mg<2, K<4 ID: Completed 4 days of IV Zosyn Endo: No issues Heme: Trend CBC PPx: Lovenox 80mg BID, therapeutic level Dispo: Likely home tomorrow. D/w Dr. Cartwright. Gene Guevara MD General Surgery, PGY-3 [facility] Pager [phone], Weekdays 6a-6p [place] [phone], Weekdays 6p-6a, weekends ACUTE CARE SURGERY FELLOW NOTE I saw and evaluated the patient. I personally obtained the conley and critical portions of the history and physical exam. I reviewed the resident's documentation and discussed the patient with the resident. I agree with the resident's medical decision making as documented in the resident's note. I personally reviewed any images obtained in the last 24 hours. Additional findings, impression, and plan: Improved appetite and overall progressing well postop. Abdominal exam appropriate for postop. Incisions remain c/d/i with steri strips. Appreciate PT/OT assistance. Will need O2 eval. Gabrielle Erazo MD Trauma Surgical Critical Care Fellow Acute Care Surgery [facility] 01-13-2021 Note OCCUPATIONAL THERAPY INITIAL EVALUATION Patient seen from 1120 to 1145 on 7B unit for 25 minutes. Reason for Admit: 25 year old???female???presented to the ED for abdominal pain. ??? Diagnosis: Cholecystitis ??? Precautions: high falls risk, regular diet, activity as tolerated ??? Procedures this admit: s/p Lap Linda with purulent ascites; 01/10/21 ??? Past Medical and Surgical History: PMH: asthma, PCOS, back pain, obesity??? Past Surgical History: Procedure Laterality Date * CHOLECYSTECTOMY, LAPAROSCOPIC N/A 01/10/2021 Procedure: CHOLECYSTECTOMY, LAPAROSCOPIC, Possible Open; Surgeon: Holly Maravilla MD; Location: PERIOPERATIVE SERVICES; Service: Trauma SUBJECTIVE: Patient Subjective: I could really use that business reporter. 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 Independent with ADLs -Does not drive (aunt drives) -Does not work -Ex-significant other does laundry -Orders groceries/meals to be delivered to home ??? Home: Patient lives alone in a one-story apartment. 1 steps to enter without rails. 0 steps to bedroom/bathroom. Assistance available: PRN from aunt, ex, current boyfriend Equipment available: single point cane, quad cane, manual wheelchair, shower chair ??? OBJECTIVE: Patient Identification: patient verbalizing his/her name and date of . Risks and benefits of occupational therapy: Patient informed of risks and benefits of treatment Appearance: Obese and IV Alertness: WFL Affect: WNL Cooperation/Behavior: Appropriate dialogue with therapist Communication: WFL Pain: Pain rating: no pain reported Pain Relief Interventions Implemented: None required; No pain at this time Self Care: Assistance Level Dep Max Mod Min CG CS DS [place] I Set-Up Comment Feeding x Grooming/Hygiene x seated Bathing:UB x Simulated sponge bathing Bathing:LB x Simulated sponge bathing, with use of long handled sponge Dressing:UB x anticipated to don shirt Dressing: LB x Donned/doffed socks, seated EOB Toileting x anticipated Transfers/Bed Mobility: Assistance Level Dep Max Mod Min CG CS DS [place] I Set-Up Comment Toilet Transfers x anticipated Bed Transfers x Sit to stand from EOB Bed Mobility x Supine to sit Endurance for Self Care: Impaired Static Sitting Balance: WFL Dynamic Sitting Balance: WFL UE Motor: BUE AROM and strength WFL Vision/Perception: WFL Cognition: AOx3, WNL Patient/Family Education: educated pt on use of long handled sponge, business reporter, and bathroom otto want to assist with ADL performance Patient up in bed with call light in reach. ??? DME: recommend business reporter, LHS, bathroom otto wand ??? 6 Clicks Daily Activity OT 01/12/2021 Help from another person Eating meals 4 Help from another person taking care of personal grooming 4 Help from another person bathing 3 Help from another person putting on and taking off regular upper body clothing 3 Help from another person putting on and taking off regular lower body clothing 3 Help from another person toileting 3 OT 6 Clicks Score 20 6 Click Score Guidelines: 1 - Unable = Total/Dependent Assist 2 - A lot = Max/Moderate Assist 3 - A little = Minimum/Contact Guard Assist/Supervision 4 - Non = Modified Ashe/Independent ASSESSMENT: Patient is functionally appropriate for discharge home once medically cleared. Will continue to follow patient while in hospital as appropriate. Rehabilitation Potential: Good Problem List: decreased ADLs, decreased endurance, decreased functional transfers/mobility, impaired balance, decreased home management tasks/IADLs and decreased functional activity tolerance Goals (to be achieved by discharge from acute care): Patient will dress upper body with Modified Independent Patient will dress lower body with Modified Independent Patient will perform bed mobility with Modified Independent Patient will perform bathing with Modified Independent Patient will perform toileting with Modified Independent Patient will perform bed transfers with Modified Independent Patient will perform commode transfers with Modified Independent PLAN: Marcie Nixon will be seen 1-3 times a week. Treatment to include: Functional AROM/Strengthening, functional endurance activities, home program instruction, home management retraining, functional task simulation, adaptive equipment / compensatory strategy training, patient / family education and discharge planning and referral to appropriate support services able to discuss the evaluation findings and treatment plan with the patient/family. The patient/family did participate in the development of plan and goals. Karrie Allred, OTR/L NA = Not Assessed, I = Independent, [place] = Modified Independent, Sup = Supervised, Set up = Physical Assistance f (more content not included)... [facility]13[facility] Note PHYSICAL THERAPY PRO NAYAN SUMMARY Patient seen from 805 to 829 on 7B unit for 24 minute treatment. SUBJECTIVE: Patient Subjective/Goals: I'm in a lot of pain right now. OBJECTIVE: Appearance: pt standing at bedside upon entering room. Pt just ambulated from bathroom Behavior: alert, cooperative Pain: Site/Location: surgical site; Pain Scale: 7/10 Pain Relief Interventions Implemented: Positioning and Relaxation Training and RN medicated pt Therex-AP and LAQ 3x10 Mobility NA Dep Max Mod Min CG CS DS NY I Comment Sit to/from stand x From EOB to rolling walker Walking on level surface x x ~45 feet with rolling walker Gait Analysis: slow steady pace, no LOB, mild SOB Stand to sit x x Sit to Supine x x W/ HOB ~35 degrees Functional Endurance: fair Pt performed 10 reps of IS Sitting Balance: Static:good Dynamic:good Standing Balance: Static: good with assistive device rolling walker Dynamic:good with assistive device rolling walker Patient/Family Education: Patient instructed in calling for nursing assist for any additional needs . Patient up in bed with call light in reach. ??? DME: With Patients permission ordered wheeled walker via [employer] Order. If any questions contact [facility] DME Provider at [phone]. 6 Clicks Basic Mobility PT 01/12/2021 Difficulty turning over in bed 3 Difficulty sitting down and standing up from a chair with arms 3 Difficulty moving from lying on back to sitting on the side of the bed 3 Help from another person moving to and from bed to a chair 3 Help from another person to walk in hospital room 3 Help from another person climbing 3-5 steps with a railing 2 PT 6 Clicks Score 17 6 Click Score Guidelines: 1 - Total = Requires total assistance, or cannot do at all. 2 - A lot = Requires a lot of help (maximun to moderate assistance) Can use assistive devices. 3 - A little = Requires a little help (supervision, minimal assistance) Can use assistive devices. 4 - None = Does not require any help and does the activity independently. Can use assistive devices. ??? ASSESSMENT: Pt is painful but is completing functional tasks at a supervision to modified (I) level. Feel pt is functionally able to return home w/ family assist prn when medically ready. Order for rolling walker placed today. Goals (to be achieved by discharge from acute care): ONGOING UNLESS INDICATED OTHERWISE Patient will achieve acceptable level of pain control to allow participation in therapy. Patient will increase bed mobility to modified independent ACHIEVED Patient will perform sit to/from stand transfer bed to/from chair with LRD with modified independent Patient will ambulate 50' x 2 with LRD with modified independent Patient will ascend/descend 1 stairs with no rail(s) and LRD with modified independent Patient will increase ROM/Strength/Endurance/Balance to allow for above goals. Patient/Family independent with exercise program/precautions. PLAN: Continue with plan per Initial Evaluation Marycruz MCMULLEN Beeper #[phone] NA = Not Assessed, I = Independent, NY = Modified Independent, Sup = Supervised, Set up = Physical Assistance for Set-up Only, Min = Minimal Assistance, Mod = Moderate Assistance, Max = Maximal assistance; Dep = Dependent; AROM = Active Range of Motion; PROM = Passive Range of Motion; MMT = Manual Muscle Test [facility] 01-13-2021 Note ACUTE CARE SURGERY P ROGRESS NOTE Subjective: No acute events overnight. Pt continues to eat, denies N/V. On 3L O2 only at night and after physical activity. + Flatus but no BM yet. Pain better controlled with Toradol, but she has not been getting her home gabapentin. Physical Exam: Vital sign ranges over the past 24 hours (retrieved 01/13/2021 at 5:27 AM): Tmax (24 hours): 98.9 ???F (37.2 ???C) Pulse Av Min: 98 Max: 105 Systolic (24hrs), Av , Min:129 , Max:148 Diastolic (24hrs), Av, Min:68, Max:80 MAP (mmHg) Av mmHg Min: 80 mmHg Max: 91 mmHg Resp Av.5 Min: 14 Max: 20 SpO2 Av.3 % Min: 97 % Max: 98 % Gen: NAD, resting comfortably in bed Neuro: Alert and oriented Chest: breathing comfortably 3 L NC Abdomen: Soft, obese appropriately tender, nondistended, incisions with steristips, no bleeding noted Extremities: moving all extremities equally Ins and Outs: In: 2421.3 (14.8 mL/kg) [P.O.:1480; I.V.:941.3 (0.2 mL/kg/hr)] Out: 1 (0 mL/kg) [Urine:1 (0 mL/kg/hr)] Net: 2420.3 Weight: 164 kg Medications: Scheduled * ketorolac 15 mg Every 6 hours * [MAR Hold] albuterol 2.5 mg Q4H RT * enoxaparin 0.5 mg/kg 2x Daily * acetaminophen 650 mg Every 6 hours * piperacillin/tazobactam 3.375 g Q8H Antibiotic PRN * albuterol 2.5 mg Q4H PRN * oxyCODONE 10 mg Q4H PRN * naloxone 0.4 mg PRN * oxyCODONE 5 mg Q4H PRN * ondansetron 4 mg Q6H PRN IV * lactated ringers 75 mL/hr at 01/13/21 0326 Labs: Basic Metabolic Panel Na K Cl CO2 Gap Glu BUN Cr Ca Mg PO4 01/13/21 0457 2.0 01/13/21 0457 136 3.3 97 28 14 93 8 0.67 7.8 01/12/21 0258 2.0 01/12/21257 138 3.9 100 28 14 91 6 0.68 8.1 01/11/21242 136 3.5 101 23 16 123 8 0.77 7.7 01/10/21 0810 131 3.8 Comment: Hemolysis present 97 24 14 112 7 0.64 8.1 CBC/PT/INR WBC RBC Hgb Hct MCV RDW Plt PT aPTT INR 01/12/218 13.8 4.06 10.9 33.5 83 15.2 466 01/11/21 0244 17.1 4.33 11.4 35.6 82 15.2 442 01/11/21 0243 38 01/11/21 0243 1.56 01/10/21 0810 18.8 4.45 11.8 36.5 82 15.5 450 WBC/Diff Neutro% Segs% Bands% Lymphs% Monos% Eos% Basos% 01/12/21 0258 73.9 16.1 8.2 1.4 0.4 01/10/21 0810 79.7 12.2 7.3 0.3 0.4 Hepatic/Biliary/Pancreas T Prot Albumin D Bili T Bili Alk Phos ALT AST Amylase Lipase 01/11/21 0243 5.9 2.2 0.30 1.2 86 34 70 Pyogen Culture Pyogen culture 01/10/21 1430 Positive Culture Report 2+ Enterococcus faecium Assessment/ Plan: Marcie Nixon is a 25 year old female with a history of asthma, PCOS, back pain, obesity, POD#3 s/p Lap Linda with purulent ascites. Will need multiple days of IV ABX. Otherwise doing well. Continued aggressive RT/IS. PT following, OT/RT consulted. Neuro: Tylenol/Oxy/Toradol for pain, restart home gabapentin CV: No home meds Pulm: PRN DuoNebs, RT recs pending, will do home O2 eval today, suspect she may need O2 supp for home going. FEN/GI: Start bowel regimen, Regular Diet, Zofran prn Renal: Replenish Mg<2, K<4 ID: Zosyn for purulent ascites, day 4, end date today after last dose, cx grew pansensitive enterococcus Endo: No issues Heme: Trend CBC PPx: Lovenox 80mg BID, therapeutic level Dispo: likely home when medically ready, PT will work 1-2 more sessions, OT recs pending Mayela Thorne, MS3 I revised, edited, and agree with the information provided by the medical student. Seen and discussed with ACS fellow, Dr. Erazo and attending surgeon, Dr. Cartwright. Gene Guevara MD General Surgery, PGY-3 ACS Pager [phone], Weekdays 6a-6p [place] [phone], Weekdays 6p-6a, weekends ACUTE CARE SURGERY FELLOW NOTE I saw and evaluated the patient. I personally obtained the conley and critical portions of the history and physical exam. I reviewed the resident's documentation and discussed the patient with the resident. I agree with the resident's medical decision making as documented in the resident's note. I personally reviewed any images obtained in the last 24 hours. Additional findings, impression, and plan: Improved appetite and overall progressing well postop. Abdominal exam appropriate for postop. Incisions remain c/d/i with steri strips. Appreciate PT/OT assistance. Will need O2 eval. Gabrielle Erazo MD Trauma Surgical Critical Care Fellow Acute Care Surgery [facility] 01-12-2021 Note PHYSICAL THERAPY ACU TE EVALUATION Referral received, chart reviewed. Patient seen from 9:18AM to 9:55AM on 9B unit for 37 minutes. Evaluation + treatment. Admit date/time: 01/10/2021 2:53 AM Reason for Admit: 25 year old female presented to the ED for abdominal pain. Diagnosis: Cholecystitis Precautions: high falls risk, regular diet, activity as tolerated Procedures this admit: s/p Lap Linda with purulent ascites; 01/10/21 Past Medical and Surgical History: PMH: asthma, PCOS, back pain, obesity PSH: No past surgical history on file. Identification was verified by patient verbalizing his/her name and date of . and patient's id band and date of . Risks and Benefits of physical therapy: Patient informed of risks and benefits of treatment SUBJECTIVE: Patient Subjective: I have trouble moving. 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 1 steps to enter without rails. 0 steps to bedroom/bathroom. Assistance available: PRN from aunt, ex, current boyfriend Equipment available: single point cane, quad cane, manual wheelchair, shower chair OBJECTIVE: Appearance: Supine in bed with HOB slightly raised upon arrival, O2 via NC, Obese, and IV Behavior: Awake, pleasant and cooperative, agreeable Oriented x 3 Follows 1 step commands consistently and with cues Pain: Site/Location: surgical site(s); Pain Scale: 3-4/10 Pain Relief Interventions Implemented: Positioning, Rest and RN aware and reports patient received medication according to time schedule Passive ROM: WFL bilateral LEs - slightly impaired due to body habitus Strength/Active ROM: WFL bilateral LEs Mobility: Sidelying to sit: Minimal assistance for trunk management, patient able to manage bilateral LEs, HOB raised Sitting balance: Good Sit <> stand: close supervision Transfers: close supervision Ambulation/Gait: 15' x 4 with rolling walker, close supervision for safety AND balance, slow kierra, decreased but equal step height AND length bilaterally, visibly AND verbally fatigued following each gait trial Endurance: Impaired Patient/Family Education: Instructed Patient in roles of therapy. Instructed Patient in roles, goals, treatment plan: demonstrated good verbal understanding. Patient instructed in importance of mobilizing regularly with nursing staff outside of therapy sessions. Patient up in bed with call light in reach. ???RN aware of patient's position. DME: With Patients permission ordered no equipment via [employer] Order. [facility] at [phone]. 6 Clicks Basic Mobility PT 01/12/2021 Difficulty turning over in bed 3 Difficulty sitting down and standing up from a chair with arms 3 Difficulty moving from lying on back to sitting on the side of the bed 3 Help from another person moving to and from bed to a chair 3 Help from another person to walk in hospital room 3 Help from another person climbing 3-5 steps with a railing 2 PT 6 Clicks Score 17 6 Click Score Guidelines: 1 - Total = Requires total assistance, or cannot do at all. 2 - A lot = Requires a lot of help (maximun to moderate assistance) Can use assistive devices. 3 - A little = Requires a little help (supervision, minimal assistance) Can use assistive devices. 4 - None = Does not require any help and does the activity independently. Can use assistive devices. ??? ASSESSMENT: Marcie Nixon is a 25 year old yo female who is currently hospitalized secondary to Cholecystitis. Patient is currently functioning below reported baseline of modified independent, requiring increased assistance/supervision in order to perform functional mobility tasks. Patient is limited secondary to impaired endurance, body habitus, and decreased assistance upon returning home. Patient inquired about a hospital bed and rolling walker with patient unable to qualify for either through insurance (verified). Anticipate patient will be appropriate for discharge home following 1-2 acute Physical Therapy sessions. Will continue to follow patient while in hospital as appropriate. Recommend Home Physical Therapy. Recommend PRN family/caregiver assist. Patient may benefit from obtaining RW for increased safety AND balance when ambulating out of pocket. Problems: Pain Decreased ROM/strength Decreased functional mobility Decreased endurance Decreased balance Decreased education in exercise/precautions Rehabilitation Potential: Good Goals (to be achieved by discharge from acute care): Patient will achieve acceptable level of pain control to allow participation in therapy. Patient will increas (more content not included)... [facility] 01-12-2021 Note ACUTE CARE SURGERY P ROGRESS NOTE Subjective: No acute events overnight. Pt continues to eat, walk, have flatus. No BM yet. Denies N/V. Has mild incisional pain and moderate internal RUQ pain. Physical Exam: Vital sign ranges over the past 24 hours (retrieved 01/12/2021 at 5:43 AM): Tmax (24 hours): 99.9 ???F (37.7 ???C) Pulse Av.2 Min: 105 Max: 113 Systolic (24hrs), Av , Min:126 , Max:149 Diastolic (24hrs), Av, Min:60, Max:80 MAP (mmHg) Av.3 mmHg Min: 79 mmHg Max: 95 mmHg Resp Av.2 Min: 22 Max: 26 SpO2 Av.6 % Min: 94 % Max: 98 % Gen: NAD, resting comfortably in bed Neuro: Alert and oriented Chest: breathing comfortably 3 L NC Abdomen: Soft, obese appropriately tender, nondistended, incisions with steristips, no bleeding noted Extremities: moving all extremities equally Ins and Outs: In: 3073.7 (18.7 mL/kg) [P.O.:1340; I.V.:1733.7 (0.4 mL/kg/hr)] Out: 400 (2.4 mL/kg) [Urine:400 (0.1 mL/kg/hr)] Net: 2673.7 Weight: 164 kg Medications: Scheduled * enoxaparin 0.5 mg/kg 2x Daily * acetaminophen 650 mg Every 6 hours * piperacillin/tazobactam 3.375 g Q8H Antibiotic PRN * oxyCODONE 10 mg Q4H PRN * naloxone 0.4 mg PRN * oxyCODONE 5 mg Q4H PRN * HYDROmorphone HCl PF 0.5 mg Q4H PRN * ondansetron 4 mg Q6H PRN IV * lactated ringers 125 mL/hr at 01/11/21 0556 Labs: Basic Metabolic Panel Na K Cl CO2 Gap Glu BUN Cr Ca Mg PO4 01/12/21 0258 2.0 01/12/21 0258 138 3.9 100 28 14 91 6 0.68 8.1 01/11/21 0243 136 3.5 101 23 16 123 8 0.77 7.7 01/10/21 0810 131 3.8 Comment: Hemolysis present 97 24 14 112 7 0.64 8.1 CBC/PT/INR WBC RBC Hgb Hct MCV RDW Plt PT aPTT INR 01/12/21 0258 13.8 4.06 10.9 33.5 83 15.2 466 01/11/21 0244 17.1 4.33 11.4 35.6 82 15.2 442 01/11/21 0243 38 01/11/21 0243 1.56 01/10/21 0810 18.8 4.45 11.8 36.5 82 15.5 450 WBC/Diff Neutro% Segs% Bands% Lymphs% Monos% Eos% Basos% 01/12/21 0258 73.9 16.1 8.2 1.4 0.4 01/10/21 0810 79.7 12.2 7.3 0.3 0.4 Hepatic/Biliary/Pancreas T Prot Albumin D Bili T Bili Alk Phos ALT AST Amylase Lipase 01/11/21 0243 5.9 2.2 0.30 1.2 86 34 70 Pyogen Culture Pyogen culture 01/10/21 1430 Positive Culture Report 2+ Enterococcus faecium Assessment/ Plan: Marcie Nixon is a 25 year old female with a history of asthma, PCOS, back pain, obesity, POD#2 s/p Lap Linda with purulent ascites. Will need multiple days of IV ABX. Otherwise doing well. Continued aggressive RT/IS. Consult PT/OT/RT today. Start Toradol for RUQ pain. Neuro: Tylenol/Oxy/Toradol for pain, home gabapentin CV: No home meds Pulm: PRN DuoNebs, consult RT FEN/GI: Regular Diet, Zofran, ID: Zosyn for purulent ascites, day 3/4, end date in NOV, cx grew pansensitive enterococcus Endo: No issues Heme: Trend CBC PPx: Lovenox 80mg BID Dispo: likely home when medically ready, PT will work 1-2 more sessions Mayela Thorne, MS3 Patient Seen and Examined. Subjective, Objective, Assessment and Plan Reviewed and Edited. Gurpreet Villarreal MD General Surgery Resident Acute Care Surgery Pager [phone], Weekdays 6a-6p [place] Pager [phone], Weekdays 6p-6a, weekends [facility] 01-11-2021 Note ACUTE CARE SURGERY P ROGRESS NOTE Subjective: No acute events overnight. Patient feels well this am. Pain improved. No chest pain. Still on oxygen, but patient feels she is at baseline breathing. No nausea/vomiting Physical Exam: Vital sign ranges over the past 24 hours (retrieved 01/11/2021 at 9:52 AM): Tmax (24 hours): 99.7 ???F (37.6 ???C) Pulse Av.5 Min: 101 Max: 119 Systolic (24hrs), Av , Min:118 , Max:150 Diastolic (24hrs), Av, Min:60, Max:83 MAP (mmHg) Av mmHg Min: 77 mmHg Max: 97 mmHg Resp Av.6 Min: 17 Max: 38 SpO2 Av.9 % Min: 91 % Max: 98 % Gen: NAD, resting comfortably in bed Neuro: Alert and oriented Chest: breathing comfortably 3 L NC Abdomen: Soft, obese appropriately tender, nondistended, incisions with steristips, no bleeding noted Extremities: moving all extremities equally Ins and Outs: In: 4240.3 (25.9 mL/kg) [P.O.:600; I.V.:3640.3 (0.9 mL/kg/hr)] Out: 220 (1.3 mL/kg) [Urine:200 (0.1 mL/kg/hr)] Net: 4020.3 Weight: 164 kg Medications: Scheduled * potassium chloride SA 40 mEq One Time Dose * enoxaparin 40 mg 2x Daily And * anti fxa-lmw heparin One Time * acetaminophen 650 mg Every 6 hours * piperacillin/tazobactam 3.375 g Q8H Antibiotic PRN * oxyCODONE 10 mg Q4H PRN * naloxone 0.4 mg PRN * oxyCODONE 5 mg Q4H PRN * HYDROmorphone HCl PF 0.5 mg Q4H PRN * ondansetron 4 mg Q6H PRN IV * lactated ringers 125 mL/hr at 01/11/21 0556 Labs: Basic Metabolic Panel Na K Cl CO2 Gap Glu BUN Cr Ca Mg PO4 01/11/21 0243 136 3.5 101 23 16 123 8 0.77 7.7 01/10/21 0810 131 3.8 Comment: Hemolysis present 97 24 14 112 7 0.64 8.1 CBC/PT/INR WBC RBC Hgb Hct MCV RDW Plt PT aPTT INR 01/11/21 0244 17.1 4.33 11.4 35.6 82 15.2 442 01/11/21 0243 38 01/11/21 0243 1.56 01/10/21 0810 18.8 4.45 11.8 36.5 82 15.5 450 WBC/Diff Neutro% Segs% Bands% Lymphs% Monos% Eos% Basos% 01/10/21 0810 79.7 12.2 7.3 0.3 0.4 Hepatic/Biliary/Pancreas T Prot Albumin D Bili T Bili Alk Phos ALT AST Amylase Lipase 01/11/21 0243 5.9 2.2 0.30 1.2 86 34 70 Pyogen Culture Pyogen culture 01/10/21 1430 Positive Culture Report[P] 2+ Gram positive cocci[P] Assessment/ Plan: Marcie Nixon is a 25 year old female with a history of asthma, PCOS, back pain, obesity, POD#1 s/p Lap Linda with purulent ascites. Will need multiple days of IV ABX. Otherwise doing well. Will need aggressive RT/IS today. Neuro: Tylenol/Oxy for pain, home gabapentin CV: No home meds Pulm: Adding PRN DuoNebs FEN/GI: Regular Diet, Zofran, ID: Zosyn for purulent ascites, day 2/4, end date in NOV Endo: No issues Heme: Trend CBC PPx: Lovenox, will adjust to weight based dosing Dispo: likely home when medically ready Seen and discussed with ACS fellow, Dr. Erazo, and attending surgeon, Dr. Cartwright. Gene Guevara MD General Surgery, PGY-3 ACS Pager [phone], Weekdays 6a-6p [place] [phone], Weekdays 6p-6a, weekends ACUTE CARE SURGERY FELLOW NOTE I saw and evaluated the patient. I personally obtained the conley and critical portions of the history and physical exam. I reviewed the resident's documentation and discussed the patient with the resident. I agree with the resident's medical decision making as documented in the resident's note. I personally reviewed any images obtained in the last 24 hours. Additional findings, impression, and plan: Patient remains on O2 via NC postop- likely hypoventilation due to body habitus and atelectasis postop- her pain appears to be well controlled with good inspiratory effort when prompted with IS. Ambulation encouraged. Abdominal exam appropriate- incisions c/d/i Cont. IV Abx 4 days postop- will need to f/u cultures. Gabrielle Erazo MD Trauma Surgical Critical Care Fellow Acute Care Surgery [facility] Diagnosis Type 2 diabetes mellitus with hyperglycemia, without long-term current use of insulin (HCC) [facility] Diagnosis Left sided sciatica- Primary Sciatica Chronic left-sided low back pain with left-sided sciatica Type 2 diabetes mellitus with hyperglycemia, without long-term current use of insulin (HCC) Morbid obesity with BMI of 60.0-69.9, adult (HCC) Morbid obesity Dysmetabolic syndrome Dysmetabolic Syndrome X Vitamin B12 deficiency Other B-complex deficiencies Hyperlipidemia, mixed Mixed hyperlipidemia [facility] Diagnosis Left sided sciatica Sciatica Chronic left-sided low back pain with left-sided sciatica [facility] Diagnosis Cannabis use, unspecified, uncomplicated [facility] Diagnosis Leg skin lesion, right Unspecified disorder of skin and subcutaneous tissue Skin lesion of right leg Unspecified disorder of skin and subcutaneous tissue documented in this encounter [facility] Summary Purpose Family History No Family History Records FoundNo Family History Records FoundNo Family History Records FoundNo Family History Records FoundNo Family History Records FoundNo Family History Records Found Advance Directives Latest Code Status on File Code Status Date Activated Date Inactivated Comments Full Code 01/10/2021 8:08 AM 01/15/2021 6:45 PM Question Answer Comments Documentation of decision process for this code status: Discussed with patient or surrogate. This is the code status chosen by the patient/surrogate. Additional Source Comments INFORMATION SOURCE (unrecogn ized section and content) DATE CREATED AUTHOR AUTHOR'S ORGANIZ ATION 04/12/[address] [facility] ([place]) DATE CREATED AUTHOR AUTHOR'S ORGANIZ ATION 05/19/2019 [facility] christine Guerrero DATE CREATED AUTHOR AUTHOR'S ORGANIZ ATION 01/10/2021 [facility] DATE CREATED AUTHOR AUTHOR'S ORGANIZ ATION 11/28/2021 [facility] DATE CREATED AUTHOR AUTHOR'S ORGANIZ ATION 05/31/2023 [facility] Source Comments (unrecognize d section and content) In the event this informatio n is protected by the Federal Confidentiality of Alcohol and Drug Abuse Patient Records regulations: The Federal rules restrict any use of the information to criminally investigate or prosecute any alcohol or drug abuse patient.[facility] the event this information is protected by the Federal Confidentiality of Alcohol and Drug Abuse Patient Records regulations: The Federal rules restrict any use of the information to criminally investigate or prosecute any alcohol or drug abuse patient.[facility] the event this information is protected by the Federal Confidentiality of Alcohol and Drug Abuse Patient Records regulations: The Federal rules restrict any use of the information to criminally investigate or prosecute any alcohol or drug abuse patient.[facility] the event this information is protected by the Federal Confidentiality of Alcohol and Drug Abuse Patient Records regulations: The Federal rules restrict any use of the information to criminally investigate or prosecute any alcohol or drug abuse patient.[facility] the event this information is protected by the Federal Confidentiality of Alcohol and Drug Abuse Patient Records regulations: The Federal rules restrict any use of the information to criminally investigate or prosecute any alcohol or drug abuse patient.[facility] the event this information is protected by the Federal Confidentiality of Alcohol and Drug Abuse Patient Records regulations: The Federal rules restrict any use of the information to criminally investigate or prosecute any alcohol or drug abuse patient.[facility] the event this information is protected by the Federal Confidentiality of Alcohol and Drug Abuse Patient Records regulations: The Federal rules restrict any use of the information to criminally investigate or prosecute any alcohol or drug abuse patient.[facility] Reason for Visit (unrecogniz ed section and content) Reason Onset Date Comments Refill Request 04/10/2023 Reason Onset Date Comments Refill Request 04/25/2023 Reason Comments MARY ANNE OUTREACH Reason Comments Results Reason Onset Date Comments Refill Request 09/05/2023 Care Teams (unrecognized sec tion and content) Occupational Safety Specialist Relationship Specialty Start Date End Date Xiang Ren DO [address], [place] [id number] PCP - General Family Medicine 10/19/14 Occupational Safety Specialist Relationship Specialty Start Date End Date Xiang Ren DO [address], [place] [id number] PCP - General Family Medicine 10/19/14 Occupational Safety Specialist Relationship Specialty Start Date End Date Xiang Ren DO [address], [place] [id number] PCP - General Family Medicine 10/19/14 Occupational Safety Specialist Relationship Specialty Start Date End Date Oliva Pabon [address] [place] [address] PCP - General 01/10/21 Occupational Safety Specialist Relationship Specialty Start Date End Date Xiang Ren DO [address], [place] [id number] PCP - General Family Medicine 10/19/14 FOR RECORDS PERTAINING TO PATIENTS WHO ARE OR HAVE BEEN ENROLLED IN A CHEMICAL DEPENDENCY/SUBSTANCEABUSE PROGRAM, SOME INFORMATION MAY BE OMITTED. This clinical summary was aggregated from multiple sources. Caution should be exercised in using it in the provision of clinical care. This summary normalizes information from multiple sources, and as a consequence, information in this document may materially change the coding, format and clinical context of patient data. In addition, data may be omitted in some cases. CLINICAL DECISIONS SHOULD BE BASED ON THE PRIMARY CLINICAL RECORDS. [facility]. provides no warranty or guarantee of the accuracy or completeness of information in this document.
[2023-10-27 14:01] LABS: Absolute Neutrophil Count 9.4 X10^3/uL (2.0-7.7); Basophil# 0.06 X10^3/uL; Basophil% 0.5 % (0-1); Eosinophil# 0.26 X10^3/uL; Hematocrit 40.2 % (37-47); Hemoglobin 12.8 g/dL (12.0-15.0); Lymphocyte % 20.4 % (19-41); Mean Corp Hgb Conc 31.8 g/dL (32-36); Mean Corpuscular Hgb 26.8 pg (27.0-32.0); Mean Corpuscular Volume 84.3 fL (81-99); Mean Platelet Vol. 9.5 fl (6.2-12.0); NRBC Flagged by Analyzer 0 % (0-5); Neutrophil # 9.39 X10^3/uL (2.7-7.7); Neutrophil % 70.7 % (47-70); Platelet Count 472 K/mm3 (150-450); RBC Distribution Width CV 14.2 % (11.6-14.6); RBC Distribution Width SD 43.4 fl (35.1-43.9); Red Blood Count 4.77 M/mm3 (4.2-5.4); White Blood Count 13.3 K/mm3 (4.4-11.0)
[2023-10-27 14:10] LABS: Anion Gap 5 (5-15); BUN 9 mg/dL (7-18); BUN/Creat Ratio 11.7 RATIO (10-20); Calcium,Total 9.4 mg/dL (8.5-10.1); Chloride 109 mmol/L (98-107); Creatinine, Serum 0.77 mg/dL (0.55-1.02); EST Glomerular Filtration Rate 94 mL/min (>60); Est Glom Filt Rate - Afr Amer 113 mL/min (>60); Estimated Creatinine Clearance 156.42 ml/min; Glucose 184 mg/dL (74-106); Sodium Level 138 mmol/L (136-145)
[2023-10-27 14:24] LABS: Internal QC Validated? YES +Cl - CLEAR BKGD; Pregnancy, Serum, hCG Quali. NEGATIVE Negative
[2023-10-27] MEDS: Ketorolac 15 MG/ML Vial IV (14:50)
[2023-10-27 15:08] LABS: Bacteria 0 SEEN /hpf (None Seen); Mucous, Urine 0 SEEN /hpf (<or=2+)
[2023-10-27 15:13] LABS: Color, Urine Yellow (Yellow); Glucose, Dipstick Normal (Normal); Ketone-Dipstick Negative (Negative); Leukocyte Esterase-Dipstick 100 /ul (Negative); Nitrite-Dipstick Negative (Negative); Occult Blood-Urine 25 /ul (Negative); Protein-Dipstick 100 mg/dl (Negative); Urine Bilirubin Dipstick Negative (Negative); Urine Clarity Clear (Clear); Urine Urobilinogen Normal (Normal)
[2023-10-27 15:20] VITALS: BP 161/92; PULSE 79; RESP 16; TEMP 36.5; O2SAT 95
[2023-10-27 15:54] LABS: Red Blood Cells-Urine 0-5 SEEN /hpf (0-5); Squamous Epithelial Cells - UA 0-5 SEEN /hpf (5-10); White Blood Cells 5-10 SEEN /hpf (0-5)
[2023-10-27] MEDS: HYDROmorphone 1 MG/ML Syringe IV (16:33)
[2023-10-27 16:40] VITALS: BP 156/87; PULSE 84; RESP 16; TEMP 36.8; O2SAT 96
== END 2023-10-27 16:42 | disposition home or self-care (01) ==
PROVIDERS: Emergency Provider Emergency Medicine; PCP Student in an Organized Health Care Education/Training Program; Visit Provider Emergency Medicine
DX: N13.2 Hydronephrosis with renal and ureteral calculous obstruction (principal); E11.9 Type 2 diabetes mellitus without complications; R11.0 Nausea; Z90.49 Acquired absence of other specified parts of digestive tract; Z79.85 Long-term (current) use of injectable non-insulin antidiabetic drugs; Z79.84 Long term (current) use of oral hypoglycemic drugs
CPT/HCPCS: 74176; 80048; 81001; 84703; 85025; 96361; 96374; 96375; 96376; 99283; J7030; A4216; J2405

== ENCOUNTER 2023-12-04 20:45 | Observation (INO) | payer MEDICAID, SELFPAY ==
[2023-12-04] VITALS (7 sets, daily range): BP systolic 171–226; BP diastolic 84–132; PULSE 106–125; RESP 18–118; TEMP 36.2–37; O2SAT 95–98; BMI 60.7
--- NOTE | 2023-12-04 21:41 | EKG12_ITS ---
Test Reason : CP Blood Pressure : / mmHG Vent. Rate : 109 BPM Atrial Rate : 109 BPM P-R Int : 172 ms QRS Dur : 086 ms QT Int : 344 ms P-R-T Axes : 056 007 037 degrees QTc Int : 463 ms Sinus tachycardia Otherwise normal ECG Confirmed by Osvaldo Macias ([id number]), supervising film or videotape editor MARGIE BENOIT ([id number]) on 12/05/2023 2:53:05 PM Referred By: BILLY Confirmed By:Osvaldo Macias
--- NOTE | 2023-12-04 21:42 | EDS_ITS ---
HPI History of Present Illness Chief Complaint: Hypertension Narrative Narrative: 27-year-old female past medical history of obesity/PCOS, I had a virtual visit with her primary care provider today concerning blood pressure. She states that the last few times she is come to the ED, she has had elevated blood pressure and protein in her urine. She was told by her primary care provider to keep an eye on her blood pressure and that if it is elevated to give her a call and she would call and medication. After the virtual visit at around 5 PM, almost 5 hours ago, patient decided to take her blood pressure noticed it was elevated. She sent her message, and the nurse instructed her to come to the emergency department for evaluation because the blood pressure was still high. Patient states that she was having chest pain and dizziness associated with this, that is improving. She is nauseated as well. No vomiting, no exacerbating or alleviating factors. [facility] Medical History (Updated 12/04/23 @ 23:[address] Xuan Rodriguez MD) Anxiety and depression Asthma Bilateral ovarian cysts Diabetes mellitus, type 2 Kidney stones Migraines Morbid obesity PCOS (polycystic ovarian syndrome) Home Medications albuterol sulfate 90 mcg/actuation breath activated powder inhaler 2 puff inhalation Q6H PRN Sob &/Or Wheezing 05/08/18 [History Last Taken Unknown] ibuprofen 800 mg tablet 800 mg PO Q8H PRN PRN Pain Or Fever 02/26/20 [History Last Taken Unknown] biotin 5,000 mcg disintegrating tablet 10,000 mcg PO DAILY 08/25/23 [History Last Taken Unknown] dulaglutide 0.75 mg/0.5 mL subcutaneous pen injector (Trulicity) 0.75 mg subcut FR 08/25/23 [History Last Taken Unknown] meloxicam 15 mg tablet 15 mg PO DAILY 08/25/23 [History Last Taken Unknown] metformin 1,000 mg tablet 1,000 mg PO BID 08/25/23 [History Last Taken Unknown] valacyclovir 500 mg tablet 500 mg PO DAILY herpies flair 08/25/23 [History Last Taken Unknown] ondansetron 4 mg disintegrating tablet 8 mg (2 x 4 mg) PO Q8H PRN PRN Nausea #20 tabs 08/26/23 [Rx Last Taken Unknown] cholecalciferol (vitamin D3) 1,250 mcg (50,000 unit) capsule 50,000 unit PO FR 12/04/23 [History Last Taken Unknown] cyclobenzaprine 10 mg tablet 10 mg PO TID PRN muscle spasm 12/04/23 [History Last Taken Unknown] loratadine 10 mg tablet 10 mg PO Q24H 12/04/23 [History Last Taken Unknown] pregabalin 75 mg capsule 75 mg PO Q8H 12/04/23 [History Last Taken Unknown] Allergy/AdvReac Type Severity Reaction Status Date / Time No Known Allergies Allergy Verified 12/04/23 20:49 Family History Mother Diabetes Kidney disease Surgical History corrective eye surgery History of cholecystectomy History of ear, nose, and throat (ENT) surgery History of tonsillectomy S/P laparoscopic procedure Social History Smoking Status: Never smoker alcohol intake: never substance use type: does not use caffeine: No what type of physical activity do you participate in: walking seatbelt use: always do you feel safe at home: Yes additional social history: [place] Patient is unemployed ROS ROS ED ROS Narrative Constitutional: No fever, no chills. Elevated blood pressure. HEENT: No sore throat. No neck pain. No loss of vision. No rhinorrhea. Cardiovascular: Positive chest pain. No palpitations. No pedal edema. Respiratory: No cough, no shortness of breath. Abdominal: No abdominal pain. No nausea. No vomiting. Genitourinary: No dysuria. No hematuria. Musculoskeletal: No myalgias. No arthralgias. Neurologic: No headaches. Positive dizziness. No lightheadedness. Skin: No rash. No change in color. Psychiatric: No depression. No anxiety. EXAM Physical Exam Narrative Exam Narrative: Afebrile. Vital signs noted. HEENT: Normocephalic. Atraumatic. PERRL, EOMI. Neck soft and supple. No point tenderness or step off. Cardiovascular: Positive tachycardia no murmurs, rubs, or gallops appreciated. Respiratory: No tachypnea. Lungs clear to auscultation bilaterally. Gastrointestinal: Abdomen soft, obese, nontender, with normoactive bowel sounds. No rebound or guarding. Neurological: Awake. Alert. Nonfocal, nonlateralizing. Skin: No rash. Normal color. No pallor. Musculoskeletal: No pedal edema. Full range of motion extremities. Const Vital Signs: 12/04/23 20:46 12/04/23 21:09 12/04/23 21:32 Temperature 97.1 F L Temperature Source Temporal Pulse Rate 116 H 112 H 111 H Respiratory Rate 20 H 18 22 H Blood Pressure 226/132 H 206/103 H 189/109 H Blood Pressure Mean 163 137 135 Pulse Ox 97 98 95 Oxygen Delivery Method Room Air Room Air Room Air 12/04/23 22:25 12/04/23 22:40 12/04/23 23:00 Temperature Temperature Source Pulse Rate 106 H 114 H Respiratory Rate 118 H 18 Blood Pressure 190/102 H 196/100 H Blood Pressure Mean 131 132 Pulse Ox 98 98 Oxygen Delivery Method Room Air Room Air Room Air MDM MDM MDM Narrative Medical decision making narrative: In the differential diagnosis is acute coronary syndrome versus hypertensive urgency/emergency versus anxiety. She states that she has had intermittent feet swelling. In the differential diagnosis would also be congestive heart failure from elevated blood pressure. Initially, in triage her blood pressure was 226/132. Slowly come down to during the history and physical 189/109. She is less tachycardic as well. EKG was obtained and interpreted by myself independently as normal sinus rhythm at 109 bpm without ectopy or acute ST changes. No STEMI. Comprehensive workup was pursued. She did show me a picture of her blood pressure monitor which showed a blood pressure of 248 over the 150s diastolic. I reviewed her laboratory work and she has slightly elevated white count of 12.0 which I think is nonspecific, hemoglobin normal at 12.3, hematocrit 38.9, platelet count elevated at 479 which is nonspecific and may be an acute phase reactant. Her D-dimer is negative at 0.42 so I have low suspicion for pulmonary embolism. Her troponin and BNP were hemolyzed so repeat shows an unremarkable BMP with a BUN of 12 and creatinine 0.76, glucose appropriately elevated at 149 with a normal anion gap of 7. Her BNP is normal at 17.75 no concern for congestive heart failure. Serum is negative. Initial high-sensitivity troponin is 18. My interpretation of her single view chest x-ray shows no acute process, no pneumothorax or consolidation. I reviewed the radiology report which comments on questionable right lower lobe atelectasis, with the possibility of pneumonia, but clinically I do not have the suspicion for pneumonia as clinically she does not have 1 with a fever and she is not complaining of productive cough. I do not feel antibiotics are indicated. Her blood pressure remains 190/102. I did order more hydralazine, but in discussion with the patient, she is uncomfortable going home in case her blood pressure spikes again. I will discuss the patient with the hospitalist for ob servation for hypertensive urgency. Patient is in stable condition. History & Record Review Additional record(s) reviewed:: Prior ED visit Lab Data Attestation: I reviewed the patient's lab results. Labs: Laboratory Results - last 24 hr 12/04/23 12/04/23 21:20 22:17 WBC 12.0 H RBC 4.69 Hgb 12.3 Hct 38.9 MCV 82.9 MCH 26.2 L MCHC 31.6 L RDW Std Deviation 44.2 H RDW Coeff of Servando 14.7 H Plt Count 479 H MPV 9.4 Immature Gran % (Auto) 0.400 Neut % (Auto) 69.8 Lymph % (Auto) 21.8 Cotton % (Auto) 5.5 Eos % (Auto) 2.1 Baso % (Auto) 0.4 Absolute Neuts (auto) 8.4 H Absolute Lymphs (auto) 2.61 Nucleated RBC % 0 D-Dimer Quant (PE/DVT) 0.42 Sodium Cancelled 141 Potassium Cancelled 3.7 Chloride Cancelled 107 Carbon Dioxide Cancelled 27.0 Anion Gap Cancelled 7 BUN Cancelled 12 Creatinine Cancelled 0.76 Estim Creat Clear Calc Cancelled 161.55 Est GFR (MDRD) Af Amer Cancelled 116 Est GFR (MDRD) Non-Af Cancelled 96 BUN/Creatinine Ratio Cancelled 15.9 Glucose Cancelled 149 H Calcium Cancelled 9.2 Troponin I High Sens Cancelled 18 B-Natriuretic Peptide 17.7 Serum , Qual NEGATIVE Radiography Diagnostic Testing: Clinical Impression(s) from Imaging Studies Chest X-Ray 12/04/23 21:45 IMPRESSION: Possible mild right lower lobe opacities may represent atelectasis. Mild infection is an additional consideration depending on the clinical scenario. Electronically Signed: Cy Gross MD at 22:21 EST , Management Discussion w/another healthcare provider: Hospitalist (Dr. Rodriguez) Discharge Plan Dx/Rx/DC Orders Clinical Impression: Hypertensive urgency, Uncontrolled hypertension, Morbid obesity with BMI of 60.0-69.9, adult Disposition Disposition: Acute Care Hospital [facility]
--- NOTE | 2023-12-04 21:45 | RAD_ITS ---
INDICATION: chest pain EXAMINATION: Frontal view of the chest COMPARISON: None. FINDINGS: Frontal view of the chest was obtained. The cardiac silhouette is mildly enlarged. Possible mild opacities in the right lower lobe. No pneumothorax. No acute fracture identified. RAD/Chest 1 View (Portable) IMPRESSION: Possible mild right lower lobe opacities may represent atelectasis. Mild infection is an additional consideration depending on the clinical scenario. Electronically Signed: Cy Gross MD at 22:21 EST ,
[2023-12-04 21:50] LABS: Absolute Lymphocyte Count 2.61 X10^3/uL (0.83-4.51); Absolute Neutrophil Count 8.4 X10^3/uL (2.0-7.7); Basophil# 0.05 X10^3/uL; Basophil% 0.4 % (0-1); Eosinophil# 0.25 X10^3/uL; Eosinophils% 2.1 % (0-5); Hematocrit 38.9 % (37-47); Hemoglobin 12.3 g/dL (12.0-15.0); Lymphocyte # 2.61 X10^3/ul (0.83-4.51); Lymphocyte % 21.8 % (19-41); Mean Corp Hgb Conc 31.6 g/dL (32-36); Mean Corpuscular Hgb 26.2 pg (27.0-32.0); Mean Corpuscular Volume 82.9 fL (81-99); Mean Platelet Vol. 9.4 fl (6.2-12.0); Monocyte# 0.66 X10^3/uL; Monocyte% 5.5 % (0-10); NRBC Flagged by Analyzer 0 % (0-5); Neutrophil # 8.37 X10^3/uL (2.7-7.7); Neutrophil % 69.8 % (47-70); Platelet Count 479 K/mm3 (150-450); RBC Distribution Width CV 14.7 % (11.6-14.6); RBC Distribution Width SD 44.2 fl (35.1-43.9); Red Blood Count 4.69 M/mm3 (4.2-5.4)
[2023-12-04] MEDS: hydrALAZINE 20 MG/ML Vial 10 MG IV (21:55)
[2023-12-04] MEDS: Aspirin 81 MG TAB.CHEW 324 MG PO (21:55)
[2023-12-04 22:04] LABS: D-Dimer Quantitative (DVT/PE) 0.42 FEU/ug/m (0.27-0.49)
[2023-12-04 22:10] LABS: Internal QC Validated? YES +Cl - CLEAR BKGD; Pregnancy, Serum, hCG Quali. NEGATIVE Negative
[2023-12-04 22:11] LABS: BNP,B-Type NATRIURETIC PEPTIDE 17.7 pg/mL (0-100)
[2023-12-04 22:44] LABS: Anion Gap 7 (5-15); BUN 12 mg/dL (7-18); BUN/Creat Ratio 15.9 RATIO (10-20); Calcium,Total 9.2 mg/dL (8.5-10.1); Chloride 107 mmol/L (98-107); Creatinine, Serum 0.76 mg/dL (0.55-1.02); EST Glomerular Filtration Rate 96 mL/min (>60); Est Glom Filt Rate - Afr Amer 116 mL/min (>60); Estimated Creatinine Clearance 161.55 ml/min; Glucose 149 mg/dL (74-106); Potassium 3.7 mmol/L (3.5-5.1); Sodium Level 141 mmol/L (136-145); Troponin-I HS (w/2H Reflex) 18 pg/mL (3.0-54.0)
[2023-12-04] MEDS: hydrALAZINE 20 MG/ML Vial IV (23:03)
--- NOTE | 2023-12-04 23:06 | HP.PCM.HOS_ITS ---
HPI - General General Date of Admission: 12/04/23 Date of Service: 12/04/23 Chief Complaint: Elevated BP, chest pain, LH, Dizziness. HPI Narrative The patient is a 27 y/o F w/ PMHx: Morbid obesity, Asthma, Anxiety and Depression, Chronic migraines, PCOS, Diabetes mellitus type II who presents to the [facility] ED on 12/04/2023 with history of PCP evaluation on day of presentation specifically virtual visit secondary to blood pressure concerns with evidence of elevated blood pressures and protein in urine over the last several visits including ED evaluation with plan continued observation outpatient per primary care physician however if it further elevated the plan was to initiate medication with virtual visit at 5 PM on day of presentation with medication start however it continued to remain elevated prompting referral to the ED for evaluation. Patient does report some chest discomfort as well as dizziness in addition to nausea without emesis prompting eventual ED evaluation. Workup in the ED included T97.1, heart rate 116, BP 226/132, respiratory rate 20, 97% on room air with most recent repeat vitals heart rate 106, BP 190/102, respiratory rate 118, 98% on room air, CBC with WBC 12, hemoglobin 12.3, MCV 82.9, platelet 479 with left shift, D-dimer 0.42, BMP with glucose 149 otherwise unremarkable, troponin 18, BNP 17.7, negative serum testing, chest x-ray with possible mild right lower lobe opacity possibly atelectasis, EKG with sinus rhythm tachycardic rhythm with rate 109 with no acute evidence of ischemia. In the ED patient ministered full-strength aspirin therapy as well as 30 mg IV hydralazine. In the ED within 20 minutes of her hydralazine she had onset worsening lightheadedness, dizziness and tachycardia with rate increasing up to 150s range. She improved with lopressor 5 mg IV x 1 and symptoms resolved. She denies having felt like that with her recent onset of symptoms. [facility] Medical History Anxiety and depression Asthma Bilateral ovarian cysts Diabetes mellitus, type 2 Kidney stones Migraines Morbid obesity PCOS (polycystic ovarian syndrome) Home Medications albuterol sulfate 90 mcg/actuation breath activated powder inhaler 2 puff inhalation Q6H PRN Sob &/Or Wheezing 05/08/18 [History Last Taken Unknown] ibuprofen 800 mg tablet 800 mg PO Q8H PRN PRN Pain Or Fever 02/26/20 [History Last Taken Unknown] biotin 5,000 mcg disintegrating tablet 10,000 mcg PO DAILY 08/25/23 [History Last Taken Unknown] dulaglutide 0.75 mg/0.5 mL subcutaneous pen injector (Trulicity) 0.75 mg subcut FR 08/25/23 [History Last Taken Unknown] meloxicam 15 mg tablet 15 mg PO DAILY 08/25/23 [History Last Taken Unknown] metformin 1,000 mg tablet 1,000 mg PO BID 08/25/23 [History Last Taken Unknown] valacyclovir 500 mg tablet 500 mg PO DAILY herpies flair 08/25/23 [History Last Taken Unknown] ondansetron 4 mg disintegrating tablet 8 mg (2 x 4 mg) PO Q8H PRN PRN Nausea #20 tabs 08/26/23 [Rx Last Taken Unknown] cholecalciferol (vitamin D3) 1,250 mcg (50,000 unit) capsule 50,000 unit PO FR 12/04/23 [History Last Taken Unknown] cyclobenzaprine 10 mg tablet 10 mg PO TID PRN muscle spasm 12/04/23 [History Last Taken Unknown] loratadine 10 mg tablet 10 mg PO Q24H 12/04/23 [History Last Taken Unknown] pregabalin 75 mg capsule 75 mg PO Q8H 12/04/23 [History Last Taken Unknown] Allergy/AdvReac Type Severity Reaction Status Date / Time hydralazine AdvReac Mild Other Verified 12/04/23 23:32 Family History Mother Diabetes Kidney disease unable to obtain (Patient does not know her father nor her paternal family history.) Surgical History corrective eye surgery History of cholecystectomy History of ear, nose, and throat (ENT) surgery History of tonsillectomy S/P laparoscopic procedure Social History (Updated 12/04/23 @ 23:[address] Xuan Rodriguez MD) household members: significant other Smoking Status: Never smoker alcohol intake: never substance use type: marijuana and other details: Edible cannabis OTC twice weekly. caffeine: No what type of physical activity do you participate in: walking seatbelt use: always do you feel safe at home: Yes additional social history: [place]- [employer] Patient is unemployed ROS ROS Narrative Admission Review of Systems: CONSTITUTIONAL: No weight loss, fever, chills, + weakness or fatigue. HEENT: + Lightheadedness, dizziness. Eyes: No visual loss, blurred vision, double vision or yellow sclerae. Ears, Nose, Throat: No hearing loss, sneezing, congestion, runny nose or sore throat. SKIN: No rash or itching, lesions, wounds. CARDIOVASCULAR: + Chest pain. Palpitations, edema, orthopnea, syncopal events. RESPIRATORY: No shortness of breath, cough or sputum, wheezing, hemoptysis. GASTROINTESTINAL: + anorexia, nausea. No vomiting or diarrhea, abdominal pain, melena, BRBPR. GENITOURINARY: No dysuria, frequency, urgency or retention. NEUROLOGICAL: + Lightheadedness, dizziness. No headache, syncope, paralysis, ataxia, numbness or tingling in the extremities, focal weakness, change in bowel or bladder control, seizure. MUSCULOSKELETAL: + muscle, back pain, joint pain or stiffness. HEMATOLOGIC: No anemia, bleeding or bruising. LYMPHATICS: No enlarged nodes. No history of splenectomy. PSYCHIATRIC: + History of anxiety and depression. ENDOCRINOLOGIC: No reports of sweating, cold or heat intolerance. No polyuria or polydipsia. ALLERGIES: + History of asthma and allergic rhinitis. Vital Signs Vital Signs Vital Signs: 12/04/23 20:46 12/04/23 21:09 12/04/23 21:32 Temperature 97.1 F L Temperature Source Temporal Pulse Rate 116 H 112 H 111 H Respiratory Rate 20 H 18 22 H Blood Pressure 226/132 H 206/103 H 189/109 H Blood Pressure Mean 163 137 135 Pulse Ox 97 98 95 Oxygen Delivery Method Room Air Room Air Room Air 12/04/23 22:25 12/04/23 22:40 12/04/23 23:00 Temperature Temperature Source Pulse Rate 106 H 114 H Respiratory Rate 118 H 18 Blood Pressure 190/102 H 196/100 H Blood Pressure Mean 131 132 Pulse Ox 98 98 Oxygen Delivery Method Room Air Room Air Room Air Weight Weight: 343 lb 2 oz Body Mass Index (BMI) 60.7 Physical Exam Narrative Physical Examination: General: Awake, alert, oriented x 3 and cooperative, seated upright in the ED bed, fatigued, notes feeling improved following Lopressor as she did have onset following hydralazine and notable tachycardia with increase in her lightheadedness and dizziness. Skin: Normal color, normal turgor, no icterus, no cyanosis. HEENT: AT/NC, EOMI, PERRLA, mildly dry MM, no carotid bruits, difficult to discern JVD given thickened neck. Lungs: Very distant breath sounds, greater bases, mildly increased respiratory rate but no distress, no rales, ronchi or wheezing. Heart: Improved, mildly tachycardic with regular rhythm; no gallop, rub audible. Abdomen: Soft, morbidly obese, NTTP, distant BS, unable to discern distention or HSM given habitus. Extremities: No cyanosis, clubbing, or edema. Neurological: Patient awake, alert, oriented as noted, cognitive function intact; pupils equally reactive to light and accommodation, cranial nerves grossly normal, moving all 4 extremities, no focal deficits, strength moderately globally decreased secondary to acute presentation complaints. Psychiatric: Affect appears fatigued, was very anxious with her recent tachycardia but now improved, does have underlying anxiety and depression. Results Lab / Micro Data 12/04/23 21:20 12/04/23 22:17 Labs: Laboratory Results - last 24 hr 12/04/23 21:20: WBC 12.0 H, RBC 4.69, Hgb 12.3, Hct 38.9, MCV 82.9, MCH 26.2 L, MCHC 31.6 L, RDW Std Deviation 44.2 H, RDW Coeff of Servando 14.7 H, Plt Count 479 H, MPV 9.4, Immature Gran % (Auto) 0.400, Neut % (Auto) 69.8, Lymph % (Auto) 21.8, [place] % (Auto) 5.5, Eos % (Auto) 2.1, Baso % (Auto) 0.4, Absolute Neuts (auto) 8.4 H, Absolute Lymphs (auto) 2.61, Nucleated RBC % 0, D-Dimer Quant (PE/DVT) 0.42, Sodium Cancelled, Potassium Cancelled, Chloride Cancelled, Carbon Dioxide Cancelled, Anion Gap Cancelled, BUN Cancelled, Creatinine Cancelled, Estim Creat Clear Calc Cancelled, Est GFR (MDRD) Af Amer Cancelled, Est GFR (MDRD) Non-Af Cancelled, BUN/Creatinine Ratio Cancelled, Glucose Cancelled, Calcium Cancelled, Troponin I High Sens Cancelled, B-Natriuretic Peptide 17.7, Serum , Qual NEGATIVE 12/04/23 22:17: Sodium 141, Potassium 3.7, Chloride 107, Carbon Dioxide 27.0, Anion Gap 7, BUN 12, Creatinine 0.76, Estim Creat Clear Calc 161.55, Est GFR (MDRD) Af Amer 116, Est GFR (MDRD) Non-Af 96, BUN/Creatinine Ratio 15.9, Glucose 149 H, Calcium 9.2, Troponin I High Sens 18 Imaging Radiology Impression Chest X-Ray 12/04/23 21:45 IMPRESSION: Possible mild right lower lobe opacities may represent atelectasis. Mild infection is an additional consideration depending on the clinical scenario. Electronically Signed: Cy Gross MD at 22:21 EST Reading Location ID and State: Counts include 234 beds at the [facility] / ID Tel , Service support , Assessment & Plan Assessment/Plan (1) Hypertensive urgency: PLAN: Plan The patient is a 27 y/o F w/ PMHx: Morbid obesity, Asthma, Anxiety and Depression, Chronic migraines, PCOS, Diabetes mellitus type II who presents to the [facility] ED on 12/04/2023 with history of recently elevated BP, start on regimen on day of presentation wtihout improvement with onset chest discomfort as well as dizziness in addition to nausea without emesis prompting eventual ED evaluation. #1. Hypertensive urgency with associated Chest Pain, LH, Dizziness: EKG in ED sinus tachycardia with no acute evidence of ischemia, CXR w/ no acute ca rdiopulmonary findings with suspected component of atelectasis, initial trop 18. Will admit to PCU, place on a monitored bed to assure no acute myocardial infarction with serial cardiac enzymes and EKGs. Magnesium level pending. FLP in AM. Will initiate on aspirin therapy. Will initiate on commendation BETTY inhibitor/hydrochlorothiazide with continued close blood pressure monitoring. If blood pressure remains intractable certainly low threshold to transition to drip if necessary. Echocardiogram requested. Once blood pressure is appropriate if ongoing discomfort may need to consider stress testing. Of course given patient age if she does have any intention of becoming she would need to be de-escalated off of BETTY inhibitor and transitioned with current testing upon ED evaluation negative of note to which she is understanding. Pending her response to treatment may need to consider secondary cause evaluation also. UDS requested. TSH/FT4 requested. #2. Diabetes mellitus type II with chronic neuropathy: Hold oral home regimen, temporally hold dulaglutide regimen, maintain on ADA diet, accu checks w/ ISS, continue patient home pregabalin regimen. #3. Chronic asthma: Will maintain on ATC budesonide therapy, PRN albuterol, HOB, IS parameters. #4. Morbid Obesity complicated by underlying PCOS: Weight loss and lifestyle changes encouraged. #5. Anxiety and depression: Per current list not on regimen, clarifying, encourage continued outpatient follow-up with counseling and medications if appropriate. #6. Chronic migraines: Per current list not on regimen, encourage continued outpatient follow-up with PCP. #7. DVT prophylaxis: Lovenox. Charges/Coding Visit Charges Inpatient E&M: 91832 Init Hosp L2
--- OUTSIDE RECORDS SUMMARY | 2023-12-04 23:20 | XMS RPT_ITS | CCD ---
Author Name Unknown Address [address] [facility] [address] [place] [address] Organization [facility] Care Team Providers Care Microelectronics Engineer Name Role Phone PROVIDER, UNKNOWN Attending Unavailable [...] Unavailable Ren Xiang PITTS Primary Care Provider [phone] Oliva Pabon Primary Care Provider XIANG REN [...] Allergy Type Date of Onset Reaction(s) Facility (10 sources) Onion extract; Translations: [ONION] Drug Allergy 3 Anaphylaxis [facility] (2 sources) OTHER (REVIEW COMMENTS!); Translations: [OTHER (REVIEW COMMENTS!)] Propensity to adverse reactions to drug (disorder) 1 Swelling [facility] (9 sources) Mentor Oil; Translations: [PINE OIL] Allergy to substance 3 Hives, Swelling, Itching [facility] Work Phone: Medications Current Medications Medication Drug Class(es) Dates Sig (Normalized) Sig (Original) gabapentin 300 mg oral capsule (1 source) Anti-epileptic Agent take 1 capsule by mouth three times daily gabapentin (NEURONTIN) 300 MG capsule Take 300 mg by mouth 3 times daily. 0 Active ketoconazole 20 mg/ml topical cream (1 source) Azole Antifungal Start: 12-04-2023 End: 01-03-2024 ketoconazole (NIZORAL) 2 % cream Indications: Tinea corporis Apply to affected area two times a day as needed (rash). 60 g 2 12/04/2023 01/03/2024 Active Completed/Discontinued Medications Medication Drug Class(es) Dates Sig (Normalized) Sig (Original) [id number] 200 actuat albuterol 0.09 mg/actuat metered dose inhaler (16 sources) beta2-Adrenergic Agonist Start: 10-08-2023 take 2 puff(s) by inhalation every six hours as needed albuterol HFA (PROAIR HFA) 90 mcg/actuation inhaler Inhale 2 Puffs as instructed every 6 hours as needed. 36 g 1 10/08/2023 Active Problems Active Problems Problem Classification Problem Date Documented Date Episodic/Chronic Anxiety disorders (19 sources) Anxiety; Translations: [Other specified anxiety disorders] Onset: 05-15-2017 Chronic Diabetes mellitus with complications (13 sources) Type 2 diabetes mellitus; Translations: [Type 2 diabetes mellitus with hyperglycemia] Onset: 07-10-2022 Chronic Disorders of lipid metabolism (11 sources) Mixed hyperlipidemia; Translations: [Mixed hyperlipidemia] Onset: 10-11-2022 10-11-2022 Chronic Essential hypertension (9 sources) Essential hypertension; Translations: [Essential (primary) hypertension] Onset: 08-29-2018 08-29-2018 Chronic Headache; including migraine (8 sources) Migraine with aura; Translations: [Migraine with aura, not intractable, without status migrainosus] Onset: 08-15-2022 08-15-2022 Chronic Miscellaneous mental health disorders (1 source) Psychophysiologic insomnia; Translations: [Chronic insomnia] Onset: 10-03-2022 Chronic Mood disorders (9 sources) Moderate major depression, single episode; Translations: [Major depressive disorder, single episode, moderate] Onset: 05-15-2017 05-15-2017 Chronic Mycoses (2 sources) Tinea corporis; Translations: [Tinea corporis] Onset: 10-03-2022 12-04-2023 Episodic Nutritional deficiencies (9 sources) Vitamin D deficiency; Translations: [Vitamin D deficiency, unspecified] Onset: 07-10-2022 07-10-2022 Chronic Nutritional deficiencies (11 sources) Cobalamin deficiency; Translations: [Deficiency of other specified B group vitamins] Onset: 07-10-2022 07-10-2022 Episodic Other nervous system disorders (1 source) Other chronic pain; Translations: [Chronic left-sided low back pain with left-sided sciatica] Onset: 03-03-2020 Chronic Other nutritional; endocrine; and metabolic disorders (11 sources) Body mass index 40+ - severely obese; Translations: [Morbid (severe) obesity due to excess calories] Onset: 05-15-2017 Chronic Other nutritional; endocrine; and metabolic disorders (10 sources) Metabolic syndrome X; Translations: [Metabolic syndrome] Onset: 08-15-2022 Chronic Other nutritional; endocrine; and metabolic disorders (1 source) Morbid (severe) obesity due to excess calories; Translations: [Morbid obesity with BMI of 60.0-69.9, adult ([facility])] Onset: 05-15-2017 Chronic Other nutritional; endocrine; and metabolic disorders (1 source) Body mass index (BMI) 60.0-69.9, adult; Translations: [Morbid obesity with BMI of 60.0-69.9, adult ([facility])] Onset: 05-15-2017 Chronic Other nutritional; endocrine; and metabolic disorders (1 source) Metabolic syndrome; Translations: [Dysmetabolic syndrome] Onset: 08-15-2022 Chronic Other screening for suspected conditions (not mental disorders or infectious disease) (10 sources) Thyroid function tests abnormal; Translations: [Abnormal results of thyroid function studies] Onset: 07-10-2022 07-10-2022 Episodic Other upper respiratory disease (1 source) Seasonal allergic rhinitis; Translations: [Other allergic rhinitis] 12-04-2023 Chronic Spondylosis; intervertebral disc disorders; other back problems (20 sources) Sciatica; Translations: [Sciatica, left side] Onset: 03-03-2020 Episodic Past or Other Problems Problem Classification Problem Date Documented Da te Episodic/Chronic Biliary tract disease (1 source) Cholecystitis; Translations: [Cholecystitis, unspecified] Onset: 01-10-2021 01-15-2021 Episodic Diabetes mellitus without complication (1 source) Impaired fasting glucose; Translations: [IFG (impaired fasting glucose)] Onset: 06-20-2022 Episodic Other connective tissue disease (8 sources) Muscle pain; Translations: [Myalgia, unspecified site] Onset: 05-15-2017 05-15-2017 Episodic Other nervous system disorders (1 source) Abnormal gait; Translations: [Unsteadiness on feet] Onset: 01-13-2021 01-13-2021 Episodic Other non-traumatic joint disorders (8 sources) Joint pain; Translations: [Pain in unspecified joint] Onset: 05-15-2017 05-15-2017 Episodic Other non-traumatic joint disorders (9 sources) Pain in right knee; Translations: [Pain in joint, lower leg] Onset: 06-20-2022 07-10-2022 Episodic Other skin disorders (10 sources) Mass of skin of right lower limb; Translations: [Disorder of the skin and subcutaneous tissue, unspecified] Onset: 08-15-2022 08-15-2022 Episodic Substance-related disorders (4 sources) Cannabis misuse; Translations: [Cannabis use, unspecified, uncomplicated] Onset: 05-30-2023 05-30-2023 Episodic Viral infection (8 sources) Herpes simplex; Translations: [Herpesviral infection, unspecified] Onset: 08-15-2022 08-15-2022 Episodic Results Test Name Value Interpretation Reference Range Facil ity Vital Signs Date Time Vital Sign Value Performing Clinician Faci lity 01-11-2023 15:47-0400 Body weight 151.96 kg Xiang Ren DO Work Phone: [facility] Encounters Encounter Date Encounter Type Care Provider Facility Start: 12-04-2023 End: 12-04-2023 ambulatory Xiang Ren DO Work Phone: [facility] Plan of Treatment Date Care Activity Detail Author Start: 12-13-2043 Shingles (RZV) Vaccine (1 of 2) Shingles (RZV) Vaccine (1 of 2) [facility] Start: 04-09-2028 Tetanus vaccination Tetanus (Td or Tdap) Booster [facility] Start: 04-09-2028 Urine microalbumin profile [facility] Start: 12-03-2024 Annual PCP Team Chronic Disease Visit Annual PCP Team Chronic Disease Visit [facility] Start: 04-26-2024 ANNUAL PCP TEAM CHRONIC DISEASE VISIT ANNUAL PCP TEAM CHRONIC DISEASE VISIT [facility] Start: 04-12-2024 Hepatitis B surface antibody level LDL CHOLESTEROL [facility] Start: 01-12-2024 ANNUAL PCP TEAM CHRONIC DISEASE VISIT ANNUAL PCP TEAM CHRONIC DISEASE VISIT [facility] Start: 12-04-2023 End: 03-04-2024 C reactive protein [Mass/volume] in Serum or Plasma C-REACTIVE PROTEIN (CRP) Lab Routine CRP elevated Expected: 12/04/2023, Expires: 03/04/2024 [facility] Work Phone: Immunizations Immunization Date Immunization Notes Care Provider [facility] 06-15-2023 influenza, injectabl e, quadrivalent, preservative free Tiki Rose APRN.ONLINE COMMUNICATIONS MANAGER Work Phone: [facility] 07-06-2022 influenza, injectabl e, quadrivalent, preservative free Xiang Ren DO Work Phone: [facility] 07-06-2022 influenza virus vacc ine, unspecified formulation Jacques ROSA Work Phone: [facility] 11-21-2021 Pfizer Monovalent (1 2+ yrs) SARS-COV-2 (COVID-19) vaccine, mRNA, spike protein, LNP, pres. free, 30 mcg/0.3mL dose, kathrin-sucrose (VKB=181) Jacques ROSA Work Phone: [facility] 08-24-2021 influenza, injectabl e, quadrivalent, preservative free Jacques ROSA Work Phone: [facility] 12-25-2020 Pfizer Monovalent (1 2+ yrs) SARS-COV-2 (COVID-19) vaccine, mRNA, spike protein, LNP, pres. free, 30 mcg/0.3mL dose (AST=106) Jacques ROSA Work Phone: [facility] 06-29-2020 influenza, seasonal, injectable Xiang Ramirezon DO Work Phone: [facility] 08-01-2019 influenza, seasonal, injectable Xiang Ren DO Work Phone: [facility] 10-15-2018 Human Papillomavirus 9-valent vaccine Xiang Minorrison DO Work Phone: [facility] Work Phone: 05-15-2018 Human Papillomavirus 9-valent vaccine Xiang Ren DO Work Phone: [facility] Work Phone: 04-09-2018 Human Papillomavirus 9-valent vaccine Xiang Ren DO Work Phone: [facility] Work Phone: 04-09-2018 tetanus toxoid, redu sarah diphtheria toxoid, and acellular pertussis vaccine, adsorbed Xiang Minorrison DO Work Phone: [facility] Work Phone: 07-19-2017 influenza virus vacc ine, unspecified formulation Xiang Ren DO Work Phone: [facility] 10-19-2014 pneumococcal polysaccharide vaccine, 23 valent Xiang Minorrison DO Work Phone: [facility] Work Phone: 08-27-2011 influenza, seasonal, injectable Jacques ROSA Work Phone: [facility] 07-14-2009 influenza, seasonal, injectable Jacques MCCAINW Work Phone: [facility] 03-01-2009 human papilloma viru s vaccine, quadrivalent Jacques Groze GEM STONE CUTTER Work Phone: [facility] 10-05-2008 human papilloma viru s vaccine, quadrivalent Jacques Groze GEM STONE CUTTER Work Phone: [facility] 07-31-2008 influenza, seasonal, injectable Jacques [employer]W Work Phone: [facility] 06-13-1999 diphtheria, tetanus toxoids and acellular pertussis vaccine, unspecified formulation Jacques [employer]W Work Phone: [facility] 02-15-1999 measles, mumps and rubella virus vaccine Jacques Groze GEM STONE CUTTER Work Phone: [facility] 02-15-1999 trivalent poliovirus vaccine, live, oral Jacques [employer]W Work Phone: [facility] 06-28-1995 diphtheria, tetanus toxoids and pertussis vaccine Jacques Groze GEM STONE CUTTER Work Phone: [facility] 06-28-1995 trivalent poliovirus vaccine, live, oral Jacques [employer] Work Phone: [facility] 05-17-1995 varicella virus vaccine Jacques [employer] Work Phone: [facility] 04-12-1995 haemophilus influenz ae type b vaccine, conjugate unspecified formulation [employer] Nutrition [employer] Work Phone: [facility] 07-11-1994 hepatitis B vaccine, pediatric or pediatric/adolescent dosage Jacques [employer]W Work Phone: [facility] 06-20-1994 diphtheria, tetanus toxoids and pertussis vaccine Jacques Groze GEM STONE CUTTER Work Phone: [facility] 06-20-1994 haemophilus influenz ae type b vaccine, conjugate unspecified formulation Jacques [employer]W Work Phone: [facility] 04-18-1994 diphtheria, tetanus toxoids and pertussis vaccine Jacques [employer] G[employer] ST[employer] CUTTER Work Phone: [facility] 04-18-1994 haemophilus influenz ae type b vaccine, conjugate unspecified formulation Jacques [employer] Work Phone: [facility] 04-18-1994 trivalent poliovirus vaccine, live, oral Jacques [employer] G[employer] STONE CUTTER Work Phone: [facility] 02-14-1994 diphtheria, tetanus toxoids and pertussis vaccine Jacques Groze GEM STONE CUTTER Work Phone: [facility] 02-14-1994 haemophilus influenz ae type b vaccine, conjugate unspecified formulation Jacques [employer] [facility]: [facility] 02-14-1994 hepatitis B vaccine, pediatric or pediatric/adolescent dosage Jacques Groze GEM STONE CUTTER Work Phone: [facility] 02-14-1994 trivalent poliovirus vaccine, live, oral Jacques [employer]plan G[employer] STONE CUTTER Work Phone: [facility] 01-03-1994 hepatitis B vaccine, pediatric or pediatric/adolescent dosage Jacques Groze GEM STONE CUTTER Work Phone: [facility] Payers Date Payer Category Payer Medicaid [id number] 2020 Medicaid [id number] 2019 Medicaid [id number] 1995 Unknown [id number] 1993 Unknown [id number] 1993 Unknown [id number] Social History Date Type Detail Facility Start: 04-09-2018 End: 02-26-2023 Tobacco smoking status NHIS Never smoked tobacco [facility] Work Phone: Start: 04-09-2018 End: 02-26-2023 Tobacco use and exposure Smokeless tobacco non-user [facility] Work Phone: Start: 07-10-2022 End: 10-12-2023 Alcohol intake Current non-drinker of alcohol (finding) [facility] Start: 10-01-2022 History SDOH Alcohol Frequency 2 [facility] Start: 10-01-2022 History SDOH Alcohol Std Drinks 1 [facility] Start: 10-01-2022 History SDOH Social Connections Phone 5 [facility] Start: 10-01-2022 History SDOH Social Connections Gnosticism 98 [facility] Start: 10-01-2022 History SDOH Social Connections Living 6 [facility] Start: 10-01-2022 History SDOH Physical Activity DPW 3 [facility] Start: 10-01-2022 History SDOH Stress 4 [facility] Start: 11-29-2019 Education 14 [facility] Start: 1995 Sex Assigned At Female [facility] Start: 09-30-2022 End: 04-26-2023 History of Social function [facility] Start: 09-30-2022 End: 04-26-2023 Social connection and isolation panel [facility] How often do you att end bahai or tenriism services? Patient refused [facility] Do you belong to any clubs or organizations such as bahai groups, unions, fraternal or athletic groups, or school groups? No [facility] Are you now , , , , never or living with a partner? [facility] How often to you hav e a drink containing alcohol? Monthly or less [facility] How many standard dr inks containing alcohol do you have on a typical day? 1 or 2 [facility] How often do you hav e 6 or more drinks on 1 occasion? Never [facility] How hard is it for y ou to pay for the very basics like food, housing, medical care, and heating Somewhat hard [facility] Do you feel stress - tense, restless, nervous, or anxious, or unable to sleep at night because your mind is troubled all the time - these days [OSQ] Rather much [facility] (I/We) worried jess er (my/our) food would run out before (I/we) got money to buy more. Sometimes true [facility] The food that (I/we) bought just didn't last, and (I/we) didn't have money to get more. Often true [facility] Start: 01-12-2023 Gender identity Identifies as female gender (finding) [facility] Tobacco smoking stat [facility] Tobacco smoking consumption unknown [facility] Work Phone: Start: 1995 Sex Assigned At Not on file [facility] Start: 12-11-2020 End: 01-10-2021 Exposure to SARS-CoV-2 (event) Not sure [facility] Are you now , , , , never or living with a partner? Refused [facility] How often do you hav e 6 or more drinks on 1 occasion? Less than monthly [facility] How hard is it for y ou to pay for the very basics like food, housing, medical care, and heating Very hard [facility] Do you feel stress - tense, restless, nervous, or anxious, or unable to sleep at night because your mind is troubled all the time - these days [OSQ] Very much [facility] In the past 12 month s, was there a time when you were not able to pay the mortgage or rent on time? Yes [facility] Medical Equipment Procedure Code Equipment Code Equipment Origin al Text Equipment Identifier Dates Test blood sugar (s) 2 times daily. Dx: Type 2 DM - Uncontrolled E11.65 Insulin: No Start: 07-09-2022 Clinical Notes 01-11-2021 to 12-04-2023 Xiang Ren, - 12/04/2023 12:50 PM ESTTelephone Encounter - Taylor Gomez RN - 05/30/2023 4:28 PM EDTTelephone Encounter - Megan Bardales APRN.CNP - 05/30/2023 3:44 PM EDT Note Date & Type Note Facility 12-04-2023 History of Presen t illness Narrative In [...] NOTE This is a virtual visit using [employer] Video Visit. It required patient-provider interaction for the medical decision making as documented below. I have communicated my name and active licensure. The patient's identity and physical location were verified at the time of this visit. Either the patient or their legal phlebotomy services representative has been informed of the risks and benefits of -- and alternatives to -- treatment through a remote evaluation and consents to proceed with the evaluation remotely Marcie Nixon is a 27 year old female seen for follow up Has had 2 recent EMERGENCY DEPARTMENT visits for right sided kidney stones. Seen in Jul 2023 and Sep 2023. Has an upcoming [employer] specialist- Dr. Sarah Lunsford to have testing done to determine stone type. During these episodes her BLOOD PRESSURE was high, which is not typical for her. BLOOD PRESSURE at home is around 116/80s. Is awaiting this appointment for opinion- has been trying to eat more green vegetables and lemon water. 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 Also would like to have a refill of her cyclobenzaprine medication- helps with back and with kidney stone symptoms. Diabetes type 2. Prior to restarting her trulicity she had the highest fasting blood glucose ever at 213 and this scared her as well. Last labs was in March 2023. Is tolerating the metformin 1000 mg twice a day and Trulicity 3 mg once a week with only rare intermittent nausea. She is okay to increase her dose if able. Fungal rash, improved with nystatin use, would like to try an alternative cream or ointment due to it takes weeks of use for improvement. HISTORY REVIEWED (electronic chart updated): PAST MEDICAL HISTORY Diagnosis Date Anemia 2007 iron deficiency Asthma mild intermittent allergic related Cannabis use, uncomplicated discordant urine 05/30/2023, do not prescribe controlled substances Depression seasonal Dyslexia Essential hypertension Fatty liver [...] use: No Current Outpatient Medications Medication Sig albuterol HFA (PROAIR HFA) 90 mcg/actuation inhaler Inhale 2 Puffs as instructed every 6 hours as needed. valACYclovir (VALTREX) 500 mg tablet Take 1 tablet by mouth once daily. meloxicam (MOBIC) 15 mg tablet Take 1 tablet by mouth once daily. For back pain, With food. dulaglutide (TRULICITY) 3 mg/0.5 mL pen injector Inject 3 mg subcutaneously one time a week. Inject once per week. Discard Pen After triamcinolone acetonide (KENALOG) 0.1 % cream Apply 1 application to affected area two times a day as needed (rash on legs). Apply sparingly to area for rash/itching. cholecalciferol, Vitamin D3, (VITAMIN D3) 1,250 mcg (50,000 unit) cap capsule Take 1 capsule by mouth one time a week. metFORMIN (GLUCOPHAGE) 1,000 mg tablet Take 1 tablet by mouth twice daily with meals. permethrin (ELIMITE) 5 % cream Apply to all areas of the body from the neck to soles of feet; leave on for 8 to 14 hours before removing by washing (shower or bath) traZODone (DESYREL) 100 mg tablet Take 1-2 tablets by mouth daily at bedtime. fluconazole (DIFLUCAN) 200 mg tablet Take 1 tablet PO once x 1 day, then repeat on days 3, 5, 7, and 9 rizatriptan (MAXALT PRODUCT BUILDER) 5 mg disintegrating tablet Take 1 tablet [...] tablet by mouth once daily. For allergies naproxen (NAPROSYN) 500 mg tablet Take 1 [...] this visit. ALLERGIES Allergen Reactions Onion Anaphylaxis Mentor Oil Hives, Swelling, Itching REVIEW OF SYSTEMS: As noted in HPI PHYSICAL EXAMINATION: VIDEO EXAM: (if completed, performed via video enabled technology) GENERAL: alert and appropriate, in no distress, well-hydrated, well nourished, happy, smiling, interactive, appears tired, and overweight NEUROLOGIC: no obvious deficit ASSESSMENT: (R79.82) CRP elevated (primary encounter diagnosis) (M54.42, G89.29) Chronic left-sided low back pain with left-sided sciatica (E11.65) Type 2 diabetes mellitus with hyperglycemia, without long-term current use of insulin (HCC) (E66.01, Z68.44) Morbid obesity with BMI of 60.0-69.9, adult (HCC) (E53.8) Vitamin B12 deficiency (E78.2) Hyperlipidemia, mixed (F41.8) Situational anxiety (M54.32) Left sided sciatica (B35.4) Tinea corporis PLAN: Increase dose of trulicity and metformin medication- okay for prn zofran Recheck diabetes and other labs Follow up with [employer] specialist regarding kidney stones- has multiple right kidney stones. Okay to restart the Lyrica and prn cyclobenzaprine medication medication for chronic LBP for sciatica symptoms Vitamin B12 deficiency- continue supplement HPL, diet controlled. There are no Patient Instructions on file for this visit. I spent a total of 35 minutes on the date of the service which included preparing to see the patient, [id number] patient care, completing clinical documentation, obtaining and/or reviewing separately obtained history, performing a medically appropriate examination, and ordering medications, tests, or procedures Xiang Ren DO documented in this encounter [facility] 05-30-2023 Miscellaneous Notes Pt called and is notified of providers results and message. Pt voices understanding. Taylor Gomez RN Please let Marcie know that her tox screen is positive for cannabis. We can no longer prescribe her controlled substances. Megan Bardales APRN.CNP documented in this encounter [facility] 04-26-2023 Note HNO ID: [id number] Author: Xiang Ren DO Service: ? Author [...] NOTE This is a virtual visit using [employer] video visit. It required patient-provider interaction for the medical decision making as documented below. I have communicated my name and active licensure. The patient's identity and physical location were verified at the time of this visit. Either the patient or their legal phlebotomy services representative has been informed of the risks and [...] (H) 4.3 - 5.6 % Final Comment: [place] [employer] guidelines indicate that patients with HgbA1c in the range 5.7-6.4% are at increased risk for development of diabetes, and intervention by lifestyle modification may be beneficial. HgbA1c greater or equal to 6.5% is considered diagnostic of diabetes. 01/01/2023 5.9 (H) 4.3 - 5.6 % Final Comment: [place] [employer] guidelines indicate that patients with HgbA1c in the range 5.7-6.4% are at increased risk for development of diabetes, and intervention by lifestyle modification may be beneficial. HgbA1c greater or equal to 6.5% is considered diagnostic of diabetes. 09/12/2022 6.2 (H) 4.3 - 5.6 % Final Comment: [place] [employer] guidelines indicate that patients with HgbA1c in the range 5.7-6.4% are at increased risk for development of diabetes, and intervention by lifestyle modification may be beneficial. HgbA1c greater or equal to 6.5% is considered diagnostic of diabetes. 06/20/2022 6.9 (H) 4.3 - 5.6 % Final Comment: [place] [employer] guidelines indicate that patients with HgbA1c in the range 5.7-6.4% are at increased risk for development of diabetes, and intervention by lifestyle modification may be beneficial. HgbA1c greater or equal to 6.5% is considered diagnostic of diabetes. 10/22/2018 6.1 (H) 4.3 - 5.6 % Final Comment: [place] [employer] guidelines indicate that patients with HgbA1c in the range 5.7-6.4% are at increased risk for development of diabetes, and intervention by lifestyle modification may be beneficial. HgbA1c greater or equal to 6.5% is considered diagnostic of diabetes. Glucose (mg/dL) Date Value 0 (more content not included)... [facility] 04-26-2023 History of Presen t illness [...] NOTE This is a virtual visit using [employer] video visit. It required patient-provider interaction for the medical decision making as documented below. I have communicated my name and active licensure. The patient's identity and physical location were verified at the time of this visit. Either the patient or their legal phlebotomy services representative has been informed of the risks and [...] (H) 4.3 - 5.6 % Final Comment: [place] [employer] guidelines indicate that patients with HgbA1c in the range 5.7-6.4% are at increased risk for development of diabetes, and intervention by lifestyle modification may be beneficial. HgbA1c greater or equal to 6.5% is considered diagnostic of diabetes. 01/01/2023 5.9 (H) 4.3 - 5.6 % Final Comment: [place] [employer] guidelines indicate that patients with HgbA1c in the range 5.7-6.4% are at increased risk for development of diabetes, and intervention by lifestyle modification may be beneficial. HgbA1c greater or equal to 6.5% is considered diagnostic of diabetes. 09/12/2022 6.2 (H) 4.3 - 5.6 % Final Comment: [place] [employer] guidelines indicate that patients with HgbA1c in the range 5.7-6.4% are at increased risk for development of diabetes, and intervention by lifestyle modification may be beneficial. HgbA1c greater or equal to 6.5% is considered diagnostic of diabetes. 06/20/2022 6.9 (H) 4.3 - 5.6 % Final Comment: [place] [employer] guidelines indicate that patients with HgbA1c in the range 5.7-6.4% are at increased risk for development of diabetes, and intervention by lifestyle modification may be beneficial. HgbA1c greater or equal to 6.5% is considered diagnostic of diabetes. 10/22/2018 6.1 (H) 4.3 - 5.6 % Final Comment: [place] [employer] guidelines indicate that patients with [...] 15 Has started a gym membership at [employer] to exercise 2-3 days a week for [...] tablet by mouth once daily. rizatriptan (MAXALT PRODUCT BUILDER) 5 mg disintegrating tablet Take 1 tablet [...] this visit. ALLERGIES Allergen Reactions Onion Anaphylaxis Mentor Oil Hives, Swelling, Itching REVIEW OF SYSTEMS: [...] hyperglycemia, without long-term current use of insulin ([facility]) (E66.01, Z68.44) Morbid obesity with BMI of 60.0-69.9, adult ([facility]) (E88.81) Dysmetabolic syndrome (E53.8) Vitamin B12 deficiency [...] which included preparing to see the patient, [id number] patient care, completing clinical documentation, obtaining and/or reviewing separately obtained history, performing a medically appropriate examination, and ordering medications, tests, or procedures Xiang Ren DO documented in this encounter [facility] 04-25-2023 Miscellaneous Notes Last office visit: 01/11/23 F/u scheduled: 04/26/23 Last refilled on: Lyrica #[id number] with 2 refills on 01/11/23 Osiris Bianchi Ma documented in this encounter [facility] 04-10-2023 Miscellaneous Notes Patient has been identified [...] Smita Hernadez LPN documented in this encounter [facility] 02-26-2023 Note HNO ID: [id number] Author: Nathalie Horta APRN.TABATHA Service: ? Author Type: Nurse Practitioner Type: [...] improvement PAST MEDICAL HISTORY Diagnosis Date Anemia 2007 iron deficiency Asthma mild intermittent allergic related Depression seasonal Dyslexia Essential hypertension Fatty liver 2009 Hard of hearing LEFT EAR, congenital Hypercholesteremia 09/2014 Impaired fasting glucose 09/2014 Type 2 diabetes mellitus with hyperglycemia, without long-term current use of insulin ([facility]) 07/10/2022 Vitamin D deficiency 09/2014 PAST SURGICAL HISTORY Procedure Laterality Date MYRINGOTOMY ASPIRAND/EUSTACHIAN TUBE NFLTJ ANES Myringotomy/tubes PAST SURGICAL HISTORY OF LAZY EYE CORRECTION LEFT EYE PAST SURGICAL HISTORY OF 03/21/2018 Cysts removed off of both Ovaries TONSILLECTOMY PRIMARY/SECONDARY Tonsillectomy ALLERGIES Onion and Mentor Oil MEDICATIONS dulaglutide (TRULICITY) 1.5 mg/0.5 mL [...] tablet by mouth once daily. rizatriptan (MAXALT PRODUCT BUILDER) 5 mg disintegrating tablet Take 1 tablet [...] X2 Hypertension Maternal (more content not included)... [facility] 01-11-2023 Note HNO ID: [id number] Author: Xiang Ren, DO Service: ? Author [...] NOTE This is a virtual visit using GenSper[employer] video visit. It required patient-provider interaction for the medical decision making as documented below. I have communicated my name and active licensure. The patient's identity and physical location were verified at the time of this visit. Either the patient or their legal phlebotomy services representative has been informed of the risks and [...] hyperglycemia, without long-term current use of insulin ([facility]) 07/10/2022 Vitamin D deficiency 09/2014 PAST SURGICAL [...] tablet by mouth once daily. rizatriptan (MAXALT PRODUCT BUILDER) 5 mg disintegrating tablet Take 1 tablet by mouth as needed for migraine headache (see administ (more content not included)... [facility] 01-11-2023 History of Presen t illness [...] NOTE This is a virtual visit using GenSper[employer] video visit. It required patient-provider interaction for the medical decision making as documented below. I have communicated my name and active licensure. The patient's identity and physical location were verified at the time of this visit. Either the patient or their legal phlebotomy services representative has been informed of the risks and [...] hyperglycemia, without long-term current use of insulin ([facility]) 07/10/2022 Vitamin D deficiency 09/2014 PAST SURGICAL [...] tablet by mouth once daily. rizatriptan (MAXALT PRODUCT BUILDER) 5 mg disintegrating tablet Take 1 tablet [...] this visit. ALLERGIES Allergen Reactions Onion Anaphylaxis Mentor Oil Hives, Swelling, Itching REVIEW OF SYSTEMS: As noted in HPI PHYSICAL EXAMINATION: VIDEO EXAM: (if completed, performed via video enabled technology) GENERAL: alert and appropriate, in no distress, appears anxious, and obese Appropriately dressed ASSESSMENT: (F41.8) Situational anxiety (primary encounter diagnosis) (E11.65) Type 2 diabetes mellitus with hyperglycemia, without long-term current use of insulin ([facility]) (E66.01, Z68.44) Morbid obesity with BMI of 60.0-69.9, adult ([facility]) (M54.32) Left sided sciatica (M54.42, G89.29) Chronic [...] which included preparing to see the patient, [id number] patient care, completing clinical documentation, obtaining and/or reviewing separately obtained history, performing a medically appropriate examination, counseling and educating the patient/family/caregiver, and ordering medications, tests, or procedures Xiang Ren DO documented in this encounter [facility] 10-03-2022 Note HNO ID: [id number] Author: Xiang Ren DO Service: ? Author [...] NOTE This is a virtual visit using GenSpera video visit. It required patient-provider interaction for [...] tablet by mouth once daily. rizatriptan (MAXALT PRODUCT BUILDER) 5 mg disintegrating tablet Take 1 tablet [...] food. lidocaine (DEE (more content not included)... [facility] 08-13-2022 Note HNO ID: [id number] Author: Xiang Ren, DO Service: ? Author [...] NOTE This is a virtual visit using GenSpera video visit. It required patient-provider interaction for [...] hyperglycemia, without long-term current use of insulin ([facility]) 07/10/2022 Vitamin D deficiency 09/2014 PAST SURGICAL [...] taking: Reported on (more content not included)... [facility] 07-09-2022 Note HNO ID: [id number] Author: Xiang Ren, DO Service: ? Author [...] NOTE This is a virtual visit using GenSper[employer] video visit. It required patient-provider interaction for [...] (H) 4.3 - 5.6 % Final Comment: [place] [employer] guidelines indicate that patients with HgbA1c in the range 5.7-6.4% are at increased risk for development of diabetes, and intervention by lifestyle modification may be beneficial. HgbA1c greater or equal to 6.5% is considered diagnostic of diabetes. 10/22/2018 6.1 (H) 4.3 - 5.6 % Final Comment: [place] [employer] guidelines indicate that patients with HgbA1c in the range 5.7-6.4% are at increased risk for development of diabetes, and intervention by lifestyle modification may be beneficial. HgbA1c greater or equal to 6.5% is considered diagnostic of diabetes. 10/19/2014 5.8 4.0 - 6.0 % Final Comment: [place] [employer] guidelines indicate that patients with [...] Range Status 09/ (more content not included)... [facility] 06-20-2022 Note HNO ID: [id number] Author: RT Suleman(R) Service: Nuclear Medicine Author [...] RT Suleman(R) June 20, 2022 12:43 PM [facility] 06-13-2022 Note HNO ID: [id number] Author: Xiang Ren, DO Service: ? Author [...] NOTE This is a virtual visit using GenSpera video visit. It required patient-provider interaction for [...] this visit. ALLERGIES Allergen Reactions Onion Anaphylaxis Mentor Oi (more content not included)... [facility] 01-26-2021 History of Presen t illness Narrative Pt's risk score is 63%. Problem: MARY ANNE Follow-Up Call where Pt indicated feeling a lost of interest in things and/or sad, hopeless, anxious, and empty. Assessment: Unable to reach Pt on 01/24/2021 and 01/25/2021. Plan: Unable to reach Pt. No further Interventions at this time. Jacques Loya, RETAIL STOCK CLERK, BEHAVIORAL INTERVENTIONIST Outpatient [phone] documented in this encounter [facility] 01-15-2021 Note DISCHARGE SUMMARY [address] [address] Marcie Nixon Date of : 1995 25 year old [...] discharged 01/15. Marcie Nixon Home Medication Instructions GABRIELA:[id number] Printed on:01/15/21 1431 Medication Information baclofen (LIORESAL) 10 MG tablet [...] Gurpreet Villarreal MD Acute Care Surgery Pager [phone], Week 6a-6p [place] Pager [phone], Week 6p-6a, weekends Surgical Attending Note Patient Active Problem [...] with assessment and plan as per resident/physician study assistant with discharge planning and disposition as per above note. Appropriate follow-up to be obtained with all services involved in patient care. Holly Maravilla MD [facility] 01-15-2021 Note ACUTE CARE SURGERY P [...] General Surgery Resident Acute Care Surgery Pager [phone], Week-6p [place] Pager [phone], Weekdays 6-6a, weekends [facility] 01-14-2021 Note ACUTE CARE SURGERY P ROGRESS NOTE Subjective: NAEON. Afebrile. Pain acceptable. Physical [...] Guevara MD General Surgery, PGY-3 ACS Pager [phone], Weekdays 6a-6p [place] [phone], Weekdays 6p-6a, weekends ACUTE CARE SURGERY FELLOW [...] Critical Care Fellow Acute Care Surgery [facility] 01-13-2021 Note OCCUPATIONAL THERAPY INITIAL EVALUATION [...] Patient Subjective: I could really use that multicultural internship. 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[employer]AXI Status: -Independent with functional mobility tasks, ambulation [...] Dep Max Mod Min CG CS DS CO I Set-Up Comment Feeding x Grooming/Hygiene x seated Bathing:UB x Simulated sponge bathing Bathing:LB x Simulated sponge bathing, with use of long handled sponge Dressing:UB x anticipated to don shirt Dressing: LB x Donned/doffed socks, seated EOB Toileting x anticipated Transfers/Bed Mobility: Assistance Level Dep Max Mod Min CG DS CO I Set-Up Comment Toilet Transfers x anticipated Bed Transfers x Sit to stand from EOB Bed Mobility x Supine to sit Endurance for Self Care: Impaired Static Sitting Balance: WFL Dynamic Sitting Balance: WFL UE Motor: BUE AROM and strength WFL Vision/Perception: WFL Cognition: AOx3, WNL Patient/Family Education: educated pt on use of long handled sponge, multicultural internship, and bathroom otto want to assist with ADL performance Patient up in bed with call light in reach. ??? DME: recommend multicultural internship, LHS, bathroom otto wand ??? 6 Clicks [...] Guard Assist/Supervision 4 - Non = Modified [place]/Independent ASSESSMENT: Patient is functionally appropriate for discharge [...] NA = Not Assessed, I = Independent, CO = Modified Independent, Sup = Supervised, Set up = Physical Assistance f (more content not included)... [facility] 01-13-2021 Note PHYSICAL THERAPY PRO NAYAN [...] Dep Max Mod Min CG CS DS CO I Comment Sit to/from stand x From [...] With Patients permission ordered wheeled walker via [employer] Order. If any questions contact [facility] DME Provider at [phone]. 6 Clicks Basic Mobility PT 01/12/2021 Difficulty [...] plan per Initial Evaluation Marycruz MCMULLEN Beeper #[phone] NA = Not Assessed, I = Independent, CO = Modified Independent, Sup = Supervised, Set up = Physical Assistance for Set-up Only, Min = Minimal Assistance, Mod = Moderate Assistance, Max = Maximal assistance; Dep = Dependent; AROM = Active Range of Motion; PROM = Passive Range of Motion; MMT = Manual Muscle Test [facility] 01-13-2021 Note ACUTE CARE SURGERY P EL NOTE Subjective: No acute events overnight. Pt [...] 93 8 0.67 7.8 01/12/21 0258 2.0 01/12/21 0258 138 3.9 100 28 14 91 6 0.68 8.1 01/11/21 0243 136 3.5 101 23 16 123 8 0.77 7.7 01/10/21 0810 131 3.8 Comment: Hemolysis present 97 24 14 112 7 0.64 8.1 CBC/PT/INR WBC RBC Hgb Hct MCV RDW Plt PT aPTT INR 01/12/21257 13.8 4.06 10.9 33.5 83 15.2 [...] K<4 ID: Zosyn for purulent ascites, day 01/01, end date today after last dose, cx [...] Guevara MD General Surgery, PGY-3 ACS Pager [phone], Weekdays 6a-6p [place] [phone], Weekdays 6p-6a, weekends ACUTE CARE SURGERY FELLOW [...] Critical Care Fellow Acute Care Surgery [facility] 01-12-2021 Note PHYSICAL THERAPY ACU TE EVALUATION [...] moving. 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 If any questions contact [facility] DME Provider at [phone]. 8 Clicks Basic Mobility PT 01/12/2021 Difficulty turning [...] will increas (more content not included)... [facility] 01-12-2021 Note ACUTE CARE SURGERY P EL NOTE Subjective: No acute events overnight. Pt [...] Gap Glu BUN Cr Ca Mg PO4 01/12/21257 2.0 01/12/218 138 3.9 100 28 14 91 6 [...] General Surgery Resident Acute Care Surgery Pager [phone], Weekdays 6a-6p [place] Pager [phone], Weekdays 6p-6a, weekends [facility] 01-11-2021 Note ACUTE CARE SURGERY P [...] Gap Glu BUN Cr Ca Mg PO4 01/11/21242 136 3.5 101 23 16 123 8 0.77 7.7 01/10/21 0810 131 3.8 Comment: Hemolysis present 97 24 14 112 7 0.64 8.1 CBC/PT/INR WBC RBC Hgb Hct MCV RDW Plt PT aPTT INR 01/11/21243 17.1 4.33 11.4 35.6 82 15.2 442 [...] Guevara MD General Surgery, PGY-3 ACS Pager [phone], Weekdays 6a-6p [place] [phone], Weekdays 6p-6a, weekends ACUTE CARE SURGERY FELLOW [...] Critical Care Fellow Acute Care Surgery [facility] Type 2 diabetes mellitus with hyperglycemia, without long-term current use of insulin (HCC) [facility] Diagnosis Left sided sciatica- Primary Sciatica Chronic left-sided low back pain with left-sided sciatica Type 2 diabetes mellitus with hyperglycemia, without long-term current use of insulin (HCC) Morbid obesity with BMI of 60.0-69.9, adult (HCC) Morbid obesity Dysmetabolic syndrome Dysmetabolic Syndrome X Vitamin B12 deficiency Other B-complex deficiencies Hyperlipidemia, mixed Mixed hyperlipidemia [facility] Left sided sciatica Sciatica Chronic left-sided low back pain with left-sided sciatica [facility] Diagnosis Cannabis use, unspecified, uncomplicated [facility] Diagnosis Leg skin lesion, right Unspecified disorder of skin and subcutaneous tissue Skin lesion of right leg Unspecified disorder of skin and subcutaneous tissue [facility] Diagnosis CRP elevated- Primary Elevated C-reactive protein (CRP) Chronic left-sided low back pain with left-sided sciatica Type 2 diabetes mellitus with hyperglycemia, without long-term current use of insulin (HCC) Morbid obesity with BMI of 60.0-69.9, adult (HCC) Morbid obesity Vitamin B12 deficiency Other B-complex deficiencies Hyperlipidemia, mixed Mixed hyperlipidemia Situational anxiety Other anxiety states Left sided sciatica Sciatica Tinea corporis Dermatophytosis of the body Seasonal allergic rhinitis due to other allergic trigger documented in this encounter [facility] Summary Purpose Family History No Family History [...] DATE CREATED AUTHOR AUTHOR'S ORGANIZ ATION 04/12/2019 [facility] ([place]) DATE CREATED AUTHOR AUTHOR'S ORGANIZ ATION 05/19/[address] [facility] christine Guerrero DATE CREATED AUTHOR AUTHOR'S ORGANIZ ATION 01/10/2021 [facility] DATE CREATED AUTHOR AUTHOR'S ORGANIZ ATION 11/28/2021 [facility] DATE CREATED AUTHOR AUTHOR'S ORGANIZ ATION 05/31/2023 [facility] Source Comments (unrecognize d section and content) In the event this informatio n is protected by the Federal Confidentiality of Alcohol and Drug Abuse Patient Records regulations: The Federal rules restrict any use of the information to criminally investigate or prosecute any alcohol or drug abuse patient.[facility] the event this information is protected by the Federal Confidentiality of Alcohol and Drug Abuse Patient Records regulations: The Federal rules restrict any use of the information to criminally investigate or prosecute any alcohol or drug abuse patient.[facility] the event this information is protected by the Federal Confidentiality of Alcohol and Drug Abuse Patient Records regulations: The Federal rules restrict any use of the information to criminally investigate or prosecute any alcohol or drug abuse patient.[facility] the event this information is protected by the Federal Confidentiality of Alcohol and Drug Abuse Patient Records regulations: The Federal rules restrict any use of the information to criminally investigate or prosecute any alcohol or drug abuse patient.[facility] the event this information is protected by the Federal Confidentiality of Alcohol and Drug Abuse Patient Records regulations: The Federal rules restrict any use of the information to criminally investigate or prosecute any alcohol or drug abuse patient.[facility] the event this information is protected by the Federal Confidentiality of Alcohol and Drug Abuse Patient Records regulations: The Federal rules restrict any use of the information to criminally investigate or prosecute any alcohol or drug abuse patient.[facility] the event this information is protected by the Federal Confidentiality of Alcohol and Drug Abuse Patient Records regulations: The Federal rules restrict any use of the information to criminally investigate or prosecute any alcohol or drug abuse patient.[facility] the event this information is protected by the Federal Confidentiality of Alcohol and Drug Abuse Patient Records regulations: The Federal rules restrict any use of the information to criminally investigate or prosecute any alcohol or drug abuse patient.[facility] Reason for Visit (unrecogniz ed section and content) Reason Onset Date Comments Refill Request 04/10/2023 Reason Onset Date Comments Refill Request 04/25/2023 Reason Comments MARY ANNE OUTREACH Reason Comments Results Reason Onset Date Comments Refill Request 09/05/2023 Care Teams (unrecognized sec tion and content) Microelectronics Engineer Relationship Specialty Start Date End Date Xiang Ren DO [address] [place] [address] PCP - General Family Medicine 10/19/14 Microelectronics Engineer Relationship Specialty Start Date End Date Xiang Ren DO [address] [place] [address] PCP - General Family Medicine 10/19/14 Microelectronics Engineer Relationship Specialty Start Date End Date Xiang Ren DO [address] [place] [address] PCP - General Family Medicine 10/19/14 Microelectronics Engineer Relationship Specialty Start Date End Date Oliva Pabon [address] [place] [address] PCP - General 01/10/21 Microelectronics Engineer Relationship Specialty Start Date End Date Xiang Ren DO [address] [place] [address] PCP - General Family Medicine 10/19/14 Microelectronics Engineer Relationship Specialty Start Date End Date Xiang Ren DO [address] [place] [address] PCP - General Family Medicine 10/19/14 FOR [...] BE BASED ON THE PRIMARY CLINICAL RECORDS. [employer] provides no warranty or guarantee of the accuracy or completeness of information in this document.
[2023-12-04] MEDS: Metoprolol Tartrate 5 MG/5 ML Vial IV (23:25)
[2023-12-04 23:30] LABS: Magnesium 1.4 mg/dL (1.6-2.6)
[2023-12-05] VITALS (7 sets, daily range): BP systolic 135–224; BP diastolic 65–108; PULSE 86–113; RESP 14–18; TEMP 36.6–37.1; O2SAT 94–97; BMI 60.5; BMI 60.6
--- NOTE | 2023-12-05 00:02 | EKG12_ITS ---
Test Reason : cp admission Blood Pressure : / mmHG Vent. Rate : 116 BPM Atrial Rate : 116 BPM P-R Int : 164 ms QRS Dur : 086 ms QT Int : 326 ms P-R-T Axes : 034 004 038 degrees QTc Int : 453 ms Sinus tachycardia Minimal voltage criteria for LVH, may be normal variant ( R in aVL ) Cannot rule out Anterior infarct , age undetermined Abnormal ECG When compared with ECG of 04-DEC-2023 20:54, MANUAL COMPARISON REQUIRED, DATA IS UNCONFIRMED Confirmed by Osvaldo Macias ([id number]), editor & co founder LINDSEY HAWLEY ([id number]) on 12/10/2023 8:23:00 AM Referred By: Confirmed By:Osvaldo Macias
--- NOTE | 2023-12-05 00:02 | ECHOCS_ITS ---
Reason For Study: SYNCOPE/NEAR SYNCOPE Procedure This was a 2D Doppler, Color Flow transthoracic echocardiogram. The study was technically difficult. Exam performed portable in patient room. Left Ventricle Normal LV size. Moderate concentric left ventricular hypertrophy. The left ventricular ejection fraction is 55 %. No evidence for diastolic dysfunction. Right Ventricle Normal right ventricle. Atria The left and right atria are normal. Mitral Valve The mitral valve is structurally normal. No prolapse or stenosis seen. Tricuspid Valve The tricuspid valve is not well visualized. Aortic Valve Trisinus/trileaflet aortic valve. Pulmonic Valve The pulmonic valve is not well visualized. Great Vessels Normal sized aortic root. Pericardium/Pleural No pericardial effusion. Medication Diluted definity 2ml given slow IV push to enhance endocardial definition. MMode/2D Measurements & Calculations LVIDd: 5.2 cm IVSd: 1.5 cm Ao root diam: 2.9 cm LVIDs: 3.6 cm LVPWd: 1.3 cm RVDd: 3.3 cm FS: 31.3 % LAV(MOD-bp): 37.1 ml LVAd ap4: 34.4 cm2 SV(MOD-sp4): 57.1 ml LAV(MOD-bp) Indexed: 15.3 ml/m2 LVLd ap4: 8.8 cm LAV(MOD-sp2): 34.8 ml EDV(MOD-sp4): 106.6 ml LAV(MOD-sp4): 36.4 ml EDV(sp4-el): 113.6 ml LVAs ap4: 21.3 cm2 LVLs ap4: 7.4 cm ESV(MOD-sp4): 49.5 ml ESV(sp4-el): 52.5 ml EF(MOD-sp4): 53.6 % EF(sp4-el): 53.8 % SV(sp4-el): 61.1 ml LA A4 area: 15.9 cm2 LA dimension(2D): 3.2 cm RA A4 area: 15.7 cm2 TAPSE: 2.3 cm Time Measurements MV dec time: 0.21 sec Doppler Measurements & Calculations MV E max jewel: 100.3 cm/sec Lat Peak E' Jewel: 10.8 cm/sec Med Peak E' Jewel: 10.5 cm/sec MV A max jewel: 102.1 cm/sec E/E' lat: 9.3 E/E' med: 9.5 MV E/A: 0.98 Ao V2 max: 197.4 cm/sec LV V1 max: 101.3 cm/sec PA V2 max: 117.9 cm/sec Ao max P.6 mmHg LV V1 max P.1 mmHg ECHO/Echo Complete W/ Contrast Interpretation Summary Moderate concentric left ventricular hypertrophy. The left ventricular ejection fraction is 55 %. Septal hypokinesis. No evidence for diastolic dysfunction. The study was technically difficult. Ordering Physician: Xuan Rodriugez Referring Physician: DEAN REN Performed By: Blaire Bates RDCS
[2023-12-05 00:21] LABS: Reflex Troponin-HS? (from REC) Y
[2023-12-05] MEDS: proCHLORPERazine 10 MG/2 ML Vial 5 MG IV (00:33)
[2023-12-05] MEDS: Lisinopril 10 MG Tablet PO ×2 (00:46→08:54)
[2023-12-05] MEDS: Pregabalin 75 MG Capsule PO ×3 (00:46→14:01)
[2023-12-05] MEDS: hydroCHLOROthiazide 12.5mg 12.5 MG PO ×2 (00:52→08:53)
[2023-12-05 01:25] LABS: Troponin-I HS 23 pg/mL (3.0-54.0)
[2023-12-05] MEDS: Magnesium Sulfate 2 GM in Dextrose 5%-Water (100mL Bag) 100 ML IV (02:05)
[2023-12-05] MEDS: Acetaminophen 325 MG Tablet 650 MG PO ×2 (03:31→10:40)
[2023-12-05] MEDS: Ondansetron 4 MG/2 ML Vial IV (03:31)
[2023-12-05] MEDS: Metoprolol Tartrate 5 MG/5 ML Vial IV (03:38)
[2023-12-05 04:46] LABS: Absolute Lymphocyte Count 2.66 X10^3/uL (0.83-4.51); Absolute Neutrophil Count 8.9 X10^3/uL (2.0-7.7); Basophil# 0.07 X10^3/uL; Basophil% 0.6 % (0-1); Eosinophil# 0.24 X10^3/uL; Eosinophils% 1.9 % (0-5); Lymphocyte # 2.66 X10^3/ul (0.83-4.51); Lymphocyte % 21.1 % (19-41); Mean Corp Hgb Conc 32.4 g/dL (32-36); Mean Corpuscular Hgb 26.4 pg (27.0-32.0); Mean Corpuscular Volume 81.5 fL (81-99); Mean Platelet Vol. 8.9 fl (6.2-12.0); Monocyte# 0.71 X10^3/uL; Monocyte% 5.6 % (0-10); NRBC Flagged by Analyzer 0 % (0-5); Neutrophil # 8.87 X10^3/uL (2.7-7.7); Neutrophil % 70.2 % (47-70); Platelet Count 492 K/mm3 (150-450); RBC Distribution Width CV 14.7 % (11.6-14.6); RBC Distribution Width SD 43.3 fl (35.1-43.9); Red Blood Count 4.54 M/mm3 (4.2-5.4); White Blood Count 12.6 K/mm3 (4.4-11.0)
[2023-12-05 05:15] LABS: ALB/GLOB Ratio 0.5 RATIO (0.9-2.4); AST(SGOT) 14 U/L (15-37); Alanine Aminotransfer ALT/SGPT 19 U/L (13-56); Albumin, Serum 2.8 g/dL (3.2-5.0); Alkaline Phosphatase 75 U/L (45-117); Anion Gap 9 (5-15); BUN 11 mg/dL (7-18); BUN/Creat Ratio 18.4 RATIO (10-20); Calcium,Total 9.2 mg/dL (8.5-10.1); Chloride 104 mmol/L (98-107); Cholesterol 208 mg/dL (200); EST Glomerular Filtration Rate 125 mL/min (>60); Est Glom Filt Rate - Afr Amer 152 mL/min (>60); Estimated Creatinine Clearance 204.19 ml/min; Globulin 5.1 g/dL (2.2-4.2); Glucose 155 mg/dL (74-106); High Density Lipoprotein 49 mg/dL; Potassium 3.6 mmol/L (3.5-5.1); Protein, Total 7.9 g/dL (6.4-8.2); Sodium Level 138 mmol/L (136-145); Thyroid Stim Hormone (TSH) 6.06 uIU/mL (0.358-3.74); Triglycerides 115 mg/dL; Troponin-I HS 24 pg/mL (3.0-54.0); Very Low Density Lipoprotein 23 mg/dL (5-40)
[2023-12-05] MEDS: Insulin Lispro 100 UNIT/ML INSULN.PEN SC (06:03)
[2023-12-05 06:50] LABS: Bedside Glucose 152 mg/dL (74-106)
[2023-12-05] MEDS: Budesonide Respules 0.5 MG/2 ML AMPUL.NEB. INHALATION (07:03)
[2023-12-05 07:32] LABS: Amphetamine Urine VISTA NEGATIVE (<1000 ng/mL); Barbiturate Urine VISTA NEGATIVE (< 200 ng/mL); Benzodiazepine Urine VISTA NEGATIVE (< 200 ng/mL); Cocaine Urine VISTA NEGATIVE (< 300 ng/mL); Ecstacy Urine VISTA NEGATIVE (< 500 ng/mL); Methadone Urine VISTA NEGATIVE (< 300 ng/mL); PCP Urine VISTA NEGATIVE (< 25 ng/mL); THC Urine VISTA NEGATIVE (< 50 ng/mL); Vista UDS pH Range 5
[2023-12-05] MEDS: Meloxicam 15 MG Tablet PO (08:53)
[2023-12-05] MEDS: Enoxaparin 40 MG/0.4 ML Syringe SC (08:53)
[2023-12-05] MEDS: Loratadine 10 MG Tablet PO (08:53)
[2023-12-05] MEDS: Aspirin E.C. 81 MG Tablet PO (08:59)
--- NOTE | 2023-12-05 09:54 | PCM.PN.HOSP ---
Reason for Visit Reason for Visit: Diagnoses Hypertensive urgency (12/04/23) Objective Data Objective Data Vital Signs: Vital Signs Temp Pulse Resp BP Pulse Ox O2 Del Method 97.8 F 86 14 156/94 H 97 Room Air 12/05/23 08:50 12/05/23 08:50 12/05/23 08:50 12/05/23 08:50 12/05/23 08:50 12/05/23 08:50 Oxygen Delivery Method Room Air Weight: 342 lb 6.046 oz Body Mass Index (BMI) 60.6 Intake & Output: Intake and Output for Last 24 Hours 12/03/23 12/04/23 12/05/23 23:59 23:59 23:59 Intake Total 104 / 104 Balance 104 / 104 Lab / Micro Data 12/05/23 04:37 12/05/23 04:37 Labs: Laboratory Results - last 24 hr 12/04/23 21:20: WBC 12.0 H, RBC 4.69, Hgb 12.3, Hct 38.9, MCV 82.9, MCH 26.2 L, MCHC 31.6 L, RDW Std Deviation 44.2 H, RDW Coeff of Servando 14.7 H, Plt Count 479 H, MPV 9.4, Immature Gran % (Auto) 0.400, Neut % (Auto) 69.8, Lymph % (Auto) 21.8, Isabela % (Auto) 5.5, Eos % (Auto) 2.1, Baso % (Auto) 0.4, Absolute Neuts (auto) 8.4 H, Absolute Lymphs (auto) 2.61, Nucleated RBC % 0, D-Dimer Quant (PE/DVT) 0.42, Sodium Cancelled, Potassium Cancelled, Chloride Cancelled, Carbon Dioxide Cancelled, Anion Gap Cancelled, BUN Cancelled, Creatinine Cancelled, Estim Creat Clear Calc Cancelled, Est GFR (MDRD) Af Amer Cancelled, Est GFR (MDRD) Non-Af Cancelled, BUN/Creatinine Ratio Cancelled, Glucose Cancelled, Calcium Cancelled, Troponin I High Sens Cancelled, B-Natriuretic Peptide 17.7, Serum , Qual NEGATIVE 12/04/23 22:17: Sodium 141, Potassium 3.7, Chloride 107, Carbon Dioxide 27.0, Anion Gap 7, BUN 12, Creatinine 0.76, Estim Creat Clear Calc 161.55, Est GFR (MDRD) Af Amer 116, Est GFR (MDRD) Non-Af 96, BUN/Creatinine Ratio 15.9, Glucose 149 H, Calcium 9.2, Magnesium 1.4 L, Troponin I High Sens 18 12/05/23 00:50: Troponin I High Sens 23 12/05/23 04:37: WBC 12.6 H, RBC 4.54, Hgb 12.0, Hct 37.0, MCV 81.5, MCH 26.4 L, MCHC 32.4, RDW Std Deviation 43.3, RDW Coeff of Servando 14.7 H, Plt Count 492 H, MPV 8.9, Immature Gran % (Auto) 0.600, Neut % (Auto) 70.2 H, Lymph % (Auto) 21.1, Isabela % (Auto) 5.6, Eos % (Auto) 1.9, Baso % (Auto) 0.6, Absolute Neuts (auto) 8.9 H, Absolute Lymphs (auto) 2.66, Nucleated RBC % 0, Sodium 138, Potassium 3.6, Chloride 104, Carbon Dioxide 25.0, Anion Gap 9, BUN 11, Creatinine 0.60, Estim Creat Clear Calc 204.19, Est GFR (MDRD) Af Amer 152, Est GFR (MDRD) Non-Af 125, BUN/Creatinine Ratio 18.4, Glucose 155 H, Calcium 9.2, Magnesium 2.0, Total Bilirubin 0.40, AST 14 L, ALT 19, Alkaline Phosphatase 75, Troponin I High Sens 24, Total Protein 7.9, Albumin 2.8 L, Globulin 5.1 H, Albumin/Globulin Ratio 0.5 L, Triglycerides 115, Cholesterol 208 H, LDL Cholesterol 136 H, VLDL Cholesterol 23, HDL Cholesterol 49, TSH 6.06 H, Free T4 1.10 12/05/23 06:00: POC Glucose 152 H 12/05/23 06:30: Urine Opiates Screen NEGATIVE, Urine Methadone Screen NEGATIVE, Ur Barbiturates Screen NEGATIVE, Ur Phencyclidine Scrn NEGATIVE, Ur Amphetamines Screen NEGATIVE, MDMA (Ecstasy) Screen NEGATIVE, U Benzodiazepines Scrn NEGATIVE, Urine Cocaine Screen NEGATIVE, U Cannabinoids Screen NEGATIVE, Ur Drug Screen Comment Radiography Diagnostic Testing: Radiology Impression Chest X-Ray 03/06/24 21:45 IMPRESSION: Possible mild right lower lobe opacities may represent atelectasis. Mild infection is an additional consideration depending on the clinical scenario. Electronically Signed: Cy Gross MD at 22:21 EST , Echocardiogram 12/05/23 00:02 Interpretation Summary Moderate concentric left ventricular hypertrophy. The left ventricular ejection fraction is 55 %. Septal hypokinesis. No evidence for diastolic dysfunction. The study was technically difficult. Ordering Physician: Xuan Rodriguez Referring Physician: DEAN REN Performed By: Blaire Bates RDCS Assessment & Plan Assessment/Plan (1) Hypertensive urgency: PLAN: Plan The patient is a 27 y/o F was admitted with ongoing chest discomfort as well as dizziness, nausea but no vomiting #1. Hypertensive urgency with associated Chest Pain, LH, Dizziness: EKG in ED sinus tachycardia with no acute evidence of ischemia, CXR w/ no acute cardiopulmonary findings with suspected component of atelectasis, initial trop 18. Will admit to PCU, place on a monitored bed to assure no acute myocardial infarction with serial cardiac enzymes and EKGs. Will initiate on aspirin therapy. Will initiate on commendation BETTY inhibitor/hydrochlorothiazide with continued close blood pressure monitoring. If blood pressure remains intractable certainly low threshold to transition to drip if necessary. Echocardiogram requested. Once blood pressure is appropriate if ongoing discomfort may need to consider stress testing. Of course given patient age if she does have any intention of becoming she would need to be de-escalated off of BETTY inhibitor and transitioned with current testing upon ED evaluation negative of note to which she is understanding. Pending her response to treatment may need to consider secondary cause evaluation also. UDS requested. TSH/FT4 requested. #2. Diabetes mellitus type II with chronic neuropathy: Hold oral home regimen, temporally hold dulaglutide regimen, maintain on ADA diet, accu checks w/ ISS, continue patient home pregabalin regimen. #3. Chronic asthma: maintain on ATC budesonide therapy, PRN albuterol, HOB, IS parameters. #4. Morbid Obesity complicated by underlying PCOS: Weight loss and lifestyle changes encouraged. #5. Anxiety and depression: Per current list not on regimen, clarifying, encourage continued outpatient follow-up with counseling and medications if appropriate. #6. Chronic migraines: Per current list not on regimen, encourage continued outpatient follow-up with PCP. #7. DVT prophylaxis: Lovenox.
--- NOTE | 2023-12-05 10:04 | DS.PCM_ITS ---
Providers Date of Admission: 12/04/23 Primary Care Physician: Dr. Xiang Ruiz, DO Reason For Visit: HYPERTENSIVE URGENCY, CP Diagnosis Discharge Diagnosis (1) Hypertensive urgency: Status: Acute Code(s): I16.0 - Hypertensive urgency Plan The patient is a 27 y/o F was admitted with ongoing chest discomfort as well as dizziness, nausea but no vomiting. Chest discomfort is mainly felt like a squeezing sensation all around which got better. It was not of radiation type. #1. Hypertensive urgency with associated Chest Pain, LH, Dizziness: EKG in ED sinus tachycardia with no acute evidence of ischemia, CXR w/ no acute cardiopulmonary findings with suspected component of atelectasis. Patient was admitted to PCU 12/04: Serial troponins are negative. Patient does not have chest pain. 2D echo was done which shows EF 55%, moderate concentric LVH. No evidence for diastolic dysfunction. Normal valves. The patient had chest pressure, headache and hypertensive urgency therefore will need outpatient nuclear stress test. Patient had mild headache in the morning get better with the Tylenol. Fasting profile shows elevated LDL 136, total cholesterol 208. Prescription given for atorvastatin 20 mg daily and lisinopril 20 mg daily. Advised to follow with PCP to schedule outpatient nuclear stress test. #2. Diabetes mellitus type II with chronic neuropathy: Glucose 155 in BMP. Patient on Trulicity and metformin at home. Continued. Patient also on pregabalin. #3. Chronic asthma: maintain on ATC budesonide therapy, PRN albuterol, HOB, IS parameters. #4. Morbid Obesity complicated by underlying PCOS: Weight loss and lifestyle changes encouraged. #5. Anxiety and depression: Per current list not on regimen, clarifying, encourage continued outpatient follow-up with counseling and medications if appr opriate. #6. Chronic migraines: Per current list not on regimen, encourage continued outpatient follow-up with PCP. #7. DVT prophylaxis: Lovenox. Medications at Discharge Home Medications albuterol sulfate 90 mcg/actuation breath activated powder inhaler 2 puff inhalation Q6H PRN Sob &/Or Wheezing 05/08/18 ibuprofen 800 mg tablet 800 mg PO Q8H PRN PRN Pain Or Fever 02/26/20 biotin 5,000 mcg disintegrating tablet 10,000 mcg PO DAILY 08/25/23 dulaglutide 0.75 mg/0.5 mL subcutaneous pen injector (Trulicity) 0.75 mg subcut FR 08/25/23 meloxicam 15 mg tablet 15 mg PO DAILY 08/25/23 metformin 1,000 mg tablet 1,000 mg PO BID 08/25/23 valacyclovir 500 mg tablet 500 mg PO DAILY herpies flair 08/25/23 ondansetron 4 mg disintegrating tablet 8 mg (2 x 4 mg) PO Q8H PRN PRN Nausea #20 tabs 08/26/23 cholecalciferol (vitamin D3) 1,250 mcg (50,000 unit) capsule 50,000 unit PO FR 12/04/23 cyclobenzaprine 10 mg tablet 10 mg PO TID PRN muscle spasm 12/04/23 loratadine 10 mg tablet 10 mg PO Q24H 12/04/23 pregabalin 75 mg capsule 75 mg PO Q8H 12/04/23 atorvastatin 20 mg tablet 20 mg PO QHS 1 month #30 tabs 12/05/23 lisinopril 20 mg tablet 20 mg PO DAILY #30 tabs 12/05/23 Physical Exam Narrative Seen and examined. Chest pain/squeezing sensation has resolved. Patient states she gets headache mainly frontal when her blood pressure is high. Denies any history of migraine headache. Physical exam General: Alert, Oriented x3, Cooperative. Morbid obesity BMI 60.6 kg/m? HEENT: Atraumatic, PERRLA, EOMI, Normocephalic Oral: Deep oropharyngeal could not be seen. Neck: Supple, No JVD, Negative Carotid Bruits. L0ose panniculus hanging from her neck. Chest wall/Lungs: Air entry diminished in bilateral lung bases. No crepitation/rhonchi Cardiovascular: Regular rate, Regular Rhythm, Normal S1, Normal S2, No M/G/R Abdomen: Bowel Sounds Present, Soft, Non Tender, Non-Distended : No dysuria. No renal angle tenderness. No suprapubic tenderness. Extremities: No edema, Capillary Refill Less than 3 Seconds Skin: No rashes, No breakdown Musculoskeletal: No Tenderness to Palpation of Joints or Extremities Neurological: Cranial nerves II-XII grossly intact, DTR 2+/4. No acute focal neurological deficit. Psych/Mental Status: Normal Affect, Appropriate. Weight / BMI Weight Weight: 342 lb 6.046 oz Body Mass Index (BMI) 60.6 ABG / Lab / Microbiology Data 12/05/23 04:37 12/05/23 04:37 Laboratory: Laboratory Results - last 24 hr 12/04/23 21:20: WBC 12.0 H, RBC 4.69, Hgb 12.3, Hct 38.9, MCV 82.9, MCH 26.2 L, MCHC 31.6 L, RDW Std Deviation 44.2 H, RDW Coeff of Servando 14.7 H, Plt Count 479 H, MPV 9.4, Immature Gran % (Auto) 0.400, Neut % (Auto) 69.8, Lymph % (Auto) 21.8, Patrick % (Auto) 5.5, Eos % (Auto) 2.1, Baso % (Auto) 0.4, Absolute Neuts (auto) 8.4 H, Absolute Lymphs (auto) 2.61, Nucleated RBC % 0, D-Dimer Quant (PE/DVT) 0.42, Sodium Cancelled, Potassium Cancelled, Chloride Cancelled, Carbon Dioxide Cancelled, Anion Gap Cancelled, BUN Cancelled, Creatinine Cancelled, Estim Creat Clear Calc Cancelled, Est GFR (MDRD) Af Amer Cancelled, Est GFR (MDRD) Non-Af Cancelled, BUN/Creatinine Ratio Cancelled, Glucose Cancelled, Calcium Cancelled, Troponin I High Sens Cancelled, B-Natriuretic Peptide 17.7, Serum , Qual NEGATIVE 12/04/23 22:17: Sodium 141, Potassium 3.7, Chloride 107, Carbon Dioxide 27.0, Anion Gap 7, BUN 12, Creatinine 0.76, Estim Creat Clear Calc 161.55, Est GFR (MDRD) Af Amer 116, Est GFR (MDRD) Non-Af 96, BUN/Creatinine Ratio 15.9, Glucose 149 H, Calcium 9.2, Magnesium 1.4 L, Troponin I High Sens 12/05/23 00:50: Troponin I High Sens 12/05/23 04:37: WBC 12.6 H, RBC 4.54, Hgb 12.0, Hct 37.0, MCV 81.5, MCH 26.4 L, MCHC 32.4, RDW Std Deviation 43.3, RDW Coeff of Servando 14.7 H, Plt Count 492 H, MPV 8.9, Immature Gran % (Auto) 0.600, Neut % (Auto) 70.2 H, Lymph % (Auto) 21.1, Patrick % (Auto) 5.6, Eos % (Auto) 1.9, Baso % (Auto) 0.6, Absolute Neuts (auto) 8.9 H, Absolute Lymphs (auto) 2.66, Nucleated RBC % 0, Sodium 138, Potassium 3 .6, Chloride 104, Carbon Dioxide 25.0, Anion Gap 9, BUN 11, Creatinine 0.60, Estim Creat Clear Calc 204.19, Est GFR (MDRD) Af Amer 152, Est GFR (MDRD) Non-Af 125, BUN/Creatinine Ratio 18.4, Glucose 155 H, Calcium 9.2, Magnesium 2.0, Total Bilirubin 0.40, AST 14 L, ALT 19, Alkaline Phosphatase 75, Troponin I High Sens 24, Total Protein 7.9, Albumin 2.8 L, Globulin 5.1 H, Albumin/Globulin Ratio 0.5 L, Triglycerides 115, Cholesterol 208 H, LDL Cholesterol 136 H, VLDL Cholesterol 23, HDL Cholesterol 49, TSH 6.06 H, Free T4 1.10 12/05/23 06:00: POC Glucose 152 H 12/05/23 06:30: Urine Opiates Screen NEGATIVE, Urine Methadone Screen NEGATIVE, Ur Barbiturates Screen NEGATIVE, Ur Phencyclidine Scrn NEGATIVE, Ur Amphetamines Screen NEGATIVE, MDMA (Ecstasy) Screen NEGATIVE, U Benzodiazepines Scrn NEGATIVE, Urine Cocaine Screen NEGATIVE, U Cannabinoids Screen NEGATIVE, Ur Drug Screen Comment Radiography Diagnostic Testing: Radiology Impression Chest X-Ray 12/04/23 21:45 IMPRESSION: Possible mild right lower lobe opacities may represent atelectasis. Mild infection is an additional consideration depending on the clinical scenario. Electronically Signed: Cy Gross MD at 22:21 EST , Echocardiogram 12/05/23 00:02 Interpretation Summary Moderate concentric left ventricular hypertrophy. The left ventricular ejection fraction is 55 %. Septal hypokinesis. No evidence for diastolic dysfunction. The study was technically difficult. Ordering Physician: Xuan Rodriguez Referring Physician: XIANG RUIZ Performed By: Blaire Bates RDCS Meaningful Use Info Meaningful Use Diagnoses (Choose all that apply): None applicable Discharge Plan Admission Admit Date/Time: 12/04/23 23:07 Primary Reason for Your Visit: Hypertensive urgency. ACS ruled out Attending Provider: Carter Colon Primary Care Provider: Xiang Ruiz Consulting Providers: Xuan Rodriguez Instructions Additional Instructions / Restrictions: Recommend outpatient treadmill nuclear stress test referred from PCP Discharge Orders/Prescriptions Prescriptions: New lisinopril 20 mg tablet 20 mg PO DAILY Qty: 30 2RF atorvastatin 20 mg tablet 20 mg PO QHS 30 Days Qty: 30 2RF Continued albuterol sulfate 90 mcg/actuation aerosol powdr breath activated 2 puff INHALATION Q6H PRN (Reason: Sob &/Or Wheezing) meloxicam 15 mg tablet 15 mg PO DAILY Patient Comments: take 1 tablet by mouth once daily with food Trulicity 0.75 mg/0.5 mL pen injector 0.75 mg SUBCUT FR Patient Comments: inject 0.5 milliliters ( 0.75 milligrams ) subcutaneously ONCE A WEEK- mond ays metformin 1,000 mg tablet 1,000 mg PO BID Patient Comments: take 1 tablet by mouth twice a day with meals valacyclovir 500 mg tablet 500 mg PO DAILY Hold Instructions: Order Changed biotin 5,000 mcg tablet,disintegrating 10,000 mcg PO DAILY ondansetron 4 mg tablet,disintegrating 8 mg PO Q8H PRN PRN (Reason: Nausea) Qty: 20 0RF cholecalciferol (vitamin D3) 1,250 mcg (50,000 unit) capsule 50,000 unit PO FR Patient Comments: take 1 capsule by mouth every week loratadine 10 mg tablet 10 mg PO Q24H pregabalin 75 mg capsule 75 mg PO Q8H Patient Comments: has not started yet cyclobenzaprine 10 mg tablet 10 mg PO TID PRN (Reason: muscle spasm) Held ibuprofen 800 MG tablet 800 mg PO Q8H PRN PRN (Reason: Pain Or Fever) Hold Instructions: Hold it and check with PCP as she is on 2 NSAIDs Rx Instructions: take with food Referrals / Follow Up: Xiang Ruiz DO [Primary Care Provider] - Within 2 Weeks (Need outpatient rescheduling for treadmill nuclear myocardial perfusion stress test) Disposition Disposition (needs filled in before D/C Order can be placed): Home, Self Care Charges/Coding Visit Charges Inpatient E&M: 65042 Disch Hosp >30min
--- NOTE | 2023-12-05 10:04 | DCINST_ITS ---
Discharge Instructions Diet Discharge Diet: Low fat / Low cholesterol, 1800 Calorie Control Diet and 2000 mg Sodium Diet Activity Discharge Activity: Return to Normal Activity Weight Bearing Status: Weight bearing as tolerated Dressing / Incision Call your doctor if you observe: Fever of 101 or Higher, Coldness, Increased Pain, Numbness or Tingling, Change in Color, Inability to urinate, Inability to have a bowel movement, Using more than 1 pad per hour, Shortness of breath, Dizziness, Fainting spells, Swelling in the ankles, Chest pain, Prolonged hiccupping, Increased palpitations (irregular heartbeat) and Calf discomfort Follow Up Care When: IN 2 WEEKS Test Results: Test results from this visit will be discussed in further detail at your follow- up appointment, if applicable. Discharge Plan Admission Admit Date/Time: 12/04/23 23:07 Primary Reason for Your Visit: Hypertensive urgency. ACS ruled out Attending Provider: Carter Colon Primary Care Provider: Xiang Ruiz Consulting Providers: Xuan Rodriguez Instructions Additional Instructions / Restrictions: Recommend outpatient treadmill nuclear stress test referred from PCP Discharge Orders/Prescriptions Prescriptions: New lisinopril 20 mg tablet 20 mg PO DAILY Qty: 30 2RF atorvastatin 20 mg tablet 20 mg PO QHS 30 Days Qty: 30 2RF Continued albuterol sulfate 90 mcg/actuation aerosol powdr breath activated 2 puff INHALATION Q6H PRN (Reason: Sob &/Or Wheezing) meloxicam 15 mg tablet 15 mg PO DAILY Patient Comments: take 1 tablet by mouth once daily with food Trulicity 0.75 mg/0.5 mL pen injector 0.75 mg SUBCUT FR Patient Comments: inject 0.5 milliliters ( 0.75 milligrams ) subcutaneously ONCE A WEEK- mondays metformin 1,000 mg tablet 1,000 mg PO BID Patient Comments: take 1 tablet by mouth twice a day with meals valacyclovir 500 mg tablet 500 mg PO DAILY Hold Instructions: Order Changed biotin 5,000 mcg tablet,disintegrating 10,000 mcg PO DAILY ondansetron 4 mg tablet,disintegrating 8 mg PO Q8H PRN PRN (Reason: Nausea) Qty: 20 0RF cholecalciferol (vitamin D3) 1,250 mcg (50,000 unit) capsule 50,000 unit PO FR Patient Comments: take 1 capsule by mouth every week loratadine 10 mg tablet 10 mg PO Q24H pregabalin 75 mg capsule 75 mg PO Q8H Patient Comments: has not started yet cyclobenzaprine 10 mg tablet 10 mg PO TID PRN (Reason: muscle spasm) Held ibuprofen 800 MG tablet 800 mg PO Q8H PRN PRN (Reason: Pain Or Fever) Hold Instructions: Hold it and check with PCP as she is on 2 NSAIDs Rx Instructions: take with food Referrals / Follow Up: Xiang Ruiz DO [Primary Care Provider] - Within 2 Weeks (Need outpatient rescheduling for treadmill nuclear myocardial perfusion stress test) Disposition Disposition (needs filled in before D/C Order can be placed): Home, Self Care
[2023-12-05 11:43] LABS: Bedside Glucose 138 mg/dL (74-106)
--- NOTE | 2023-12-05 11:56 | PHA.DC.MC.R ---
Pharmacy [facility] has performed discharge medication reconciliation and counseling for this patient. The patient's discharge medication list was reviewed for discrepancies and discrepancies were resolved. The patient was counseled on the following discharge medications and changes in medications for homegoing were reviewed. 1. LISINOPRIL 2. LIPITOR The Reason for Use, instructions for use, and potential side effects were reviewed for all new medications. The patient's questions regarding all of their medications were answered. The patient was able to verbally demonstrate an understanding of their discharge medications. Medications at Discharge Home Medications albuterol sulfate 90 mcg/actuation breath activated powder inhaler 2 puff inhalation Q6H PRN Sob &/Or Wheezing 05/08/18 ibuprofen 800 mg tablet 800 mg PO Q8H PRN PRN Pain Or Fever 02/26/20 biotin 5,000 mcg disintegrating tablet 10,000 mcg PO DAILY 08/25/23 dulaglutide 0.75 mg/0.5 mL subcutaneous pen injector (Trulicity) 0.75 mg subcut FR 08/25/23 meloxicam 15 mg tablet 15 mg PO DAILY 08/25/23 metformin 1,000 mg tablet 1,000 mg PO BID 08/25/23 valacyclovir 500 mg tablet 500 mg PO DAILY herpies flair 08/25/23 ondansetron 4 mg disintegrating tablet 8 mg (2 x 4 mg) PO Q8H PRN PRN Nausea #20 tabs 08/26/23 cholecalciferol (vitamin D3) 1,250 mcg (50,000 unit) capsule 50,000 unit PO FR 12/04/23 cyclobenzaprine 10 mg tablet 10 mg PO TID PRN muscle spasm 12/04/23 loratadine 10 mg tablet 10 mg PO Q24H 12/04/23 pregabalin 75 mg capsule 75 mg PO Q8H 12/04/23 atorvastatin 20 mg tablet 20 mg PO QHS 1 month #30 tabs 12/05/23 lisinopril 20 mg tablet 20 mg PO DAILY #30 tabs 12/05/23
--- NOTE | 2023-12-05 14:47 | CASEMGMT ---
Patient has order for discharge. RN CM in to discuss needs at discharge. Patient denies needs or help at discharge. Patient had no further questions or concerns.
== END 2023-12-05 16:38 | disposition home or self-care (01) ==
LOC: ED 23:08 → PCU 23:15
PROVIDERS: Admitting Provider Family Medicine; Emergency Provider Emergency Medicine; PCP Student in an Organized Health Care Education/Training Program; Visit Provider Internal Medicine
DX: I16.0 Hypertensive urgency (principal); E11.40 Type 2 diabetes mellitus with diabetic neuropathy, unspecified; Z68.44 Body mass index [BMI] 60.0-69.9, adult; E66.01 Morbid (severe) obesity due to excess calories; I10 Essential (primary) hypertension; R07.89 Other chest pain; R42 Dizziness and giddiness; J45.909 Unspecified asthma, uncomplicated; E28.2 Polycystic ovarian syndrome; Z79.899 Other long term (current) drug therapy; Z79.84 Long term (current) use of oral hypoglycemic drugs
CPT/HCPCS: 36415; 71045; 80048; 80053; 80061; 80307; 82962; 83735; 83880; 84439; 84443; 84484; 84703; 85025; 85379; 93005; 93306; 94668; 96372; 96374; 96375; 96376; 99221; 99285; 99406; Q9957; A4216; C8929; G0378; J2405

== ENCOUNTER → 2024-01-20 | Outpatient (CLI) | payer MEDICAID, SELFPAY ==
--- NOTE | 2024-01-20 13:52 | RAD_ITS ---
EXAM: XR ABDOMEN, 1 VIEW CLINICAL INDICATION: KIDNEY STONES TECHNIQUE: Frontal supine view of the abdomen/pelvis. COMPARISON: No relevant prior studies available. FINDINGS: LOWER THORAX: No acute pathology. GASTROINTESTINAL TRACT: Unremarkable. Non-obstructive. No bowel or stomach distention. ORGANS: There are surgical clips from a cholecystectomy. There is an intrauterine device in place. No organomegaly. No abnormal calcifications. BONES/JOINTS: No acute pathology. SOFT TISSUES: No acute pathology. RAD/Abdomen Single View IMPRESSION: No acute findings. Electronically Signed: Sly Lloyd MD at 0:01 EDT ,
== END | disposition home or self-care (01) ==
LOC: MTRAD 13:51
PROVIDERS: PCP Student in an Organized Health Care Education/Training Program; Referring Provider Urology; Visit Provider Urology
DX: N20.0 Calculus of kidney (principal)
CPT/HCPCS: 74018

== ENCOUNTER 2024-02-03 02:56 | Observation (INO) | payer MEDICAID, SELFPAY ==
--- NOTE | 2024-02-01 | CALC_PTH ---
PATIENT: SOLEDAD LOYOLA LOC: MS3 U#:[id number] AGE/SX: 28/F ROOM: NH316 RE02/03/[address]: Dr. Sarah Lunsford MD : 1995 BED: 1 DIS: 02/03/2024 SPEC #: [id number] RECD: 02/03/24 08:32 STATUS: JESSICA HDZMartin #: [id number] EDGAR: 02/01/24 00:[address]: Sarah Lunsford DEPT: SURGICAL PATHOLOGY RECD BY: Eugenia Baker ENTERED: 02/03/24 08:32 SP TYPE: Calculi OTHR DR: Dr. Xiang Ruiz DO Tissues: CALCULI Procedures: Surgery Specimen Level I HEADER OPERATION: Not noted PRE-OP DIAGNOSIS: Renal pelvis obstruction/ stones TISSUE SUBMITTED: Calculi GROSS DIAGNOSIS A fragment of the stone for analysis (gross only). WALKER/ 02/03/24 TC: COMMENT The calculus is submitted in its entirety for chemical stone analysis. The results from this study will be reported separately. GROSS DESCRIPTION Received without fixative labeled with the patient's name and designated ureteral calculi. The specimen consists of a fragment of light brown stone measuring 0.2 x 0.2 x 0.2 cm. The entire specimen is submitted for stone analysis. Dasha 02/03/24 CPT: 39598
[2024-02-03] VITALS (16 sets, daily range): BP systolic 113–160; BP diastolic 61–105; PULSE 78–121; RESP 16–19; TEMP 36.2–37.1; O2SAT 96–99; BMI 60.0; BMI 59.7
--- NOTE | 2024-02-03 03:07 | CT_ITS ---
INDICATION: Kidney Stone COMPARISON: Abdominal CT 10/27/2023. A radiation dose optimization technique was used for this scan. RADIATION DOSAGE (If Supplied By Facility): CTDIvol/DLP = ( 24.18 ) / ( 1220.16 ) mGy/mGycm FINDINGS: Noncontrast serial CT axial images through the abdomen and pelvis with coronal and sagittal reformatted series. PANCREAS: No peripancreatic fat stranding. BOWEL/MESENTERY: No dilated bowel loops. No significant free fluid. No free air. GALLBLADDER: Absent gallbladder with surgical clips in the gallbladder fossa. LIVER/STOMACH: Fatty liver. Likely associated hepatomegaly measuring up to 25 cm in the craniocaudal dimension. URINARY COLLECTING SYSTEM/ KIDNEYS: Multiple right-sided nephroliths are again noted with some of these in the right renal pelvis measuring up to 8 mm, possibly obstructing adjacent calyces. There is asymmetric right perinephric and peripelvic fat stranding when compared with the left. APPENDIX: Appendix is not definitely identified, however, there are no significant right lower quadrant inflammatory fat changes or focal fluid collection to suggest acute appendicitis. UTERUS/ADNEXA: IUD in place within central uterus. LUNG BASES: Unremarkable. BONES: Unremarkable for age. CT/Abdomen/Pelvis without Cont IMPRESSION: Suggestion of right nephrolithiasis obstructing renal calyces with inflammatory change as described above. Fatty liver with likely associated hepatomegaly again noted. Electronically Signed: Michael Montenegro MD at 5:22 EDT ,
[2024-02-03 03:22] LABS: Absolute Lymphocyte Count 3.09 X10^3/uL (0.83-4.51); Absolute Neutrophil Count 9.2 X10^3/uL (2.0-7.7); Basophil# 0.07 X10^3/uL; Basophil% 0.5 % (0-1); Eosinophil# 0.21 X10^3/uL; Eosinophils% 1.6 % (0-5); Hematocrit 39.9 % (37-47); Hemoglobin 12.6 g/dL (12.0-15.0); Lymphocyte # 3.09 X10^3/ul (0.83-4.51); Mean Corp Hgb Conc 31.6 g/dL (32-36); Mean Corpuscular Hgb 26.9 pg (27.0-32.0); Mean Corpuscular Volume 85.1 fL (81-99); Mean Platelet Vol. 9.8 fl (6.2-12.0); Monocyte# 0.84 X10^3/uL; Monocyte% 6.3 % (0-10); NRBC Flagged by Analyzer 0 % (0-5); Neutrophil # 9.15 X10^3/uL (2.7-7.7); Neutrophil % 68.2 % (47-70); Platelet Count 491 K/mm3 (150-450); RBC Distribution Width CV 14.6 % (11.6-14.6); RBC Distribution Width SD 44.9 fl (35.1-43.9); Red Blood Count 4.69 M/mm3 (4.2-5.4); White Blood Count 13.4 K/mm3 (4.4-11.0)
--- NOTE | 2024-02-03 03:22 | EDS_ITS ---
HPI History of Present Illness Chief Complaint: Flank Pain Narrative Narrative: 28-year-old female past medical history of PCOS and previous ureterolithiasis presents with right flank pain and urinary frequency/urgency that began around 6 PM yesterday evening. This was approximately 9 and half hours ago. She states that she has had kidney stones/ureterolithiasis in the past which she passed on her own, last being in September, approximately 4 months ago[address] She sees Dr. Sarah Lunsford as her urologist. She denies any fevers but may have been chilled. She is concerned because she is having more back pain and more urinary urgency than in the past. Additionally, she states she may have a few drops of blood in her urine at times. She took her antianxiety medication and acetaminophen without relief of her pain. [facility] Medical History Anxiety and depression Asthma Bilateral ovarian cysts Diabetes mellitus, type 2 Kidney stones Migraines Morbid obesity PCOS (polycystic ovarian syndrome) Home Medications albuterol sulfate 90 mcg/actuation breath activated powder inhaler 2 puff inhalation Q6H PRN Sob &/Or Wheezing 05/08/18 [History Last Taken Unknown] ibuprofen 800 mg tablet 800 mg PO Q8H PRN PRN Pain Or Fever 02/26/20 [History Last Taken Unknown] biotin 5,000 mcg disintegrating tablet 10,000 mcg PO DAILY 08/25/23 [History Last Taken Unknown] dulaglutide 0.75 mg/0.5 mL subcutaneous pen injector (Trulicity) 0.75 mg subcut FR 08/25/23 [History Last Taken Unknown] meloxicam 15 mg tablet 15 mg PO DAILY 08/25/23 [History Last Taken Unknown] metformin 1,000 mg tablet 1,000 mg PO BID 08/25/23 [History Last Taken Unknown] valacyclovir 500 mg tablet 500 mg PO DAILY herpies flair 08/25/23 [History Last Taken Unknown] ondansetron 4 mg disintegrating tablet 8 mg (2 x 4 mg) PO Q8H PRN PRN Nausea #20 tabs 08/26/23 [Rx Last Taken Unknown] cholecalciferol (vitamin D3) 1,250 mcg (50,000 unit) capsule 50,000 unit PO FR 12/04/23 [History Last Taken Unknown] cyclobenzaprine 10 mg tablet 10 mg PO TID PRN muscle spasm 12/04/23 [History Last Taken Unknown] loratadine 10 mg tablet 10 mg PO Q24H 12/04/23 [History Last Taken Unknown] pregabalin 75 mg capsule 75 mg PO Q8H 12/04/23 [History Last Taken Unknown] atorvastatin 20 mg tablet 20 mg PO QHS 1 month #30 tabs 12/05/23 [Rx Last Taken Unknown] lisinopril 20 mg tablet 20 mg PO DAILY #30 tabs 12/05/23 [Rx Last Taken Unknown] losartan 100 mg-hydrochlorothiazide 12.5 mg tablet 1 tab PO DAILY 02/03/24 [History Last Taken Unknown] mecobalamin (vitamin B12) 1,000 mcg disintegrating tablet,sublingual 1,000 mcg sublingual DAILY 02/03/24 [History Last Taken Unknown] metformin 500 mg tablet 500 mg PO QPM 02/03/24 [History Last Taken Unknown] Allergy/AdvReac Type Severity Reaction Status Date / Time hydralazine AdvReac Mild Other Verified 12/04/23 23:32 Family History Mother Diabetes Kidney disease Surgical History corrective eye surgery History of cholecystectomy History of ear, nose, and throat (ENT) surgery History of tonsillectomy S/P laparoscopic procedure Social History household members: significant other Smoking Status: Never smoker alcohol intake: never substance use type: marijuana and other details: Edible cannabis OTC twice weekly. caffeine: No what type of physical activity do you participate in: walking seatbelt use: always do you feel safe at home: Yes additional social history: [place] Patient is unemployed ROS ROS ED ROS Narrative Constitutional: No fever, no chills. HEENT: No sore throat. No neck pain. No loss of vision. No rhinorrhea. Cardiovascular: No chest pain. No palpitations. No pedal edema. Respiratory: No cough, no shortness of breath. Abdominal: No abdominal pain. No nausea. No vomiting. Genitourinary: No dysuria. Occasional hematuria, few drops of blood. Positive right flank pain. Positive urinary frequency/urgency Musculoskeletal: No myalgias. No arthralgias. Right flank/back pain. Neurologic: No headaches. No dizziness. No lightheadedness. Skin: No rash. No change in color. Psychiatric: No depression. No anxiety. EXAM Physical Exam Narrative Exam Narrative: Afebrile. Vital signs noted. HEENT: Normocephalic. Atraumatic. PERRL, EOMI. Neck soft and supple. No point tenderness or step off. Cardiovascular: Regular rate and rhythm. No murmurs, rubs, or gallops appreciated. Respiratory: No tachypnea. Lungs clear to auscultation bilaterally. Gastrointestinal: Abdomen soft, nontender, obese with normoactive bowel sounds. No rebound or guarding. Neurological: Awake. Alert. Nonfocal, nonlateralizing. Skin: No rash. Normal color. No pallor. Musculoskeletal: No pedal edema. Full range of motion extremities. Const Vital Signs: 02/03/24 02:58 02/03/24 05:00 Temperature 97.1 F L 97.8 F Temperature Source Temporal Oral Pulse Rate 121 H 101 H Respiratory Rate 16 Blood Pressure 149/84 H 137/80 H Blood Pressure Mean 105 99 Pulse Ox 99 97 Oxygen Delivery Method Room Air Room Air MDM MDM MDM Narrative Medical decision making narrative: I reviewed her prior records, and she did have a stone back in September. I reviewed her laboratory work from today and she has elevated white count of 13.4 but a chronic leukocytosis, hemoglobin 12.6, hematocrit 39.9, platelet count elevated at 491 which I think is nonspecific, sodium slightly low at 134 with a BUN of 15 and creatinine 1.08. She was bolused normal saline. Glucose is elevated at 281 but she has a normal anion gap of 8. I have low concern for HON K. Serum test is negative. Urinalysis shows 10-25 RBCs and 10-25 WBCs, but she has 5-10 squamous epithelial cells. There is bacteria noted but I am unsure if this is a contaminated specimen. Her urine was sent for culture. While she was here, after she had received morphine, Toradol, and IV fluids, she went to CT scan and had it performed and then urinated and passed a small stone. However, she states that she feels like she is still having back pain and is obstructed. She also stated that her morphine was wearing off so she was redo sed with 4 mg. I reviewed the radiology report of the CT of the abdomen and pelvis and there are multiple right-sided nephroliths noted with some of them in the right renal pelvis measuring up to 8 mm possibly obstructing adjacent calyces. There is asymmetric right perinephric and peripelvic fat stranding when compared to the left. I then discussed the patient with her urologist, Dr. Sarah Lunsford, who will admit the patient. Rocephin 1 g was started intravenously. Disposition is admit to the general medical floor in stable condition. History & Record Review Discussion w/independent historian: Patient Additional record(s) reviewed:: Prior ED visit and Prior labs Lab Data Attestation: I reviewed the patient's lab results. Labs: Laboratory Results - last 24 hr 02/03/24 02/03/24 03:08 04:45 WBC 13.4 H RBC 4.69 Hgb 12.6 Hct 39.9 MCV 85.1 MCH 26.9 L MCHC 31.6 L RDW Std Deviation 44.9 H RDW Coeff of Servando 14.6 Plt Count 491 H MPV 9.8 Immature Gran % (Auto) 0.400 Neut % (Auto) 68.2 Lymph % (Auto) 23.0 [place] % (Auto) 6.3 Eos % (Auto) 1.6 Baso % (Auto) 0.5 Absolute Neuts (auto) 9.2 H Absolute Lymphs (auto) 3.09 Nucleated RBC % 0 Sodium 134 L Potassium 4.0 Chloride 102 Carbon Dioxide 24.0 Anion Gap 8 BUN 15 Creatinine 1.08 H Estim Creat Clear Calc 111.78 Est GFR (MDRD) Af Amer 77 Est GFR (MDRD) Non-Af 63 BUN/Creatinine Ratio 13.9 Glucose 281 H Calcium 9.0 Serum , Qual NEGATIVE Urine Color Yellow Urine Clarity Clear Urine pH 5.0 Ur Specific [place] 1.015 Urine Protein 100 H Urine Glucose (UA) 100 H Urine Ketones 5 H Urine Occult Blood 250 H Urine Nitrite Negative Urine Bilirubin Negative Urine Urobilinogen Normal Ur Leukocyte Esterase 100 H Urine RBC 10-25 SEEN Urine WBC 10-25 SEEN Ur Squamous Epith Cells 5-10 SEEN Urine Bacteria 2+ Urine Mucus 1+ Radiography Diagnostic Testing: Clinical Impression(s) from Imaging Studies Abdomen/Pelvis CT 02/03/24 03:07 IMPRESSION: Suggestion of right nephrolithiasis obstructing renal calyces with inflammatory change as described above. Fatty liver with likely associated hepatomegaly again noted. Electronically Signed: Michael Montenegro MD at 5:22 EDT , Discharge Plan Dx/Rx/DC Orders Clinical Impression: Calculus of renal pelvis, History of type 2 diabetes mellitus, Morbid obesity with BMI of 60.0-69.9, adult, Right flank pain Disposition Disposition: Acute Care Hospital [facility]
[2024-02-03] MEDS: 0.9% Normal Saline (1000mL) 1,000 ML 999 ML IV (03:24)
[2024-02-03] MEDS: Morphine 4 MG/ML Syringe IV ×2 (03:25→06:18)
[2024-02-03] MEDS: Ketorolac 15 MG/ML Vial IV ×2 (03:26→17:06)
[2024-02-03] MEDS: Ondansetron 4 MG/2 ML Vial IV (03:26)
[2024-02-03 03:32] LABS: Anion Gap 8 (5-15); BUN 15 mg/dL (7-18); BUN/Creat Ratio 13.9 RATIO (10-20); Chloride 102 mmol/L (98-107); Creatinine, Serum 1.08 mg/dL (0.55-1.02); EST Glomerular Filtration Rate 63 mL/min (>60); Est Glom Filt Rate - Afr Amer 77 mL/min (>60); Estimated Creatinine Clearance 111.78 ml/min; Glucose 281 mg/dL (74-106); Sodium Level 134 mmol/L (136-145)
[2024-02-03 03:36] LABS: Internal QC Validated? YES +Cl - CLEAR BKGD; Pregnancy, Serum, hCG Quali. NEGATIVE Negative
[2024-02-03 03:37] LABS: Record Kit Lot#, Serum Preg. 718089
[2024-02-03 05:05] LABS: Color, Urine Yellow (Yellow); Glucose, Dipstick 100 mg/dl (Normal); Ketone-Dipstick 5 mg/dl (Negative); Leukocyte Esterase-Dipstick 100 /ul (Negative); Nitrite-Dipstick Negative (Negative); Occult Blood-Urine 250 /ul (Negative); Protein-Dipstick 100 mg/dl (Negative); Specific Gravity, Urine 1.015 (1.002-1.030); Urine Bilirubin Dipstick Negative (Negative); Urine Clarity Clear (Clear); Urine Urobilinogen Normal (Normal)
[2024-02-03 05:13] LABS: Bacteria 2+ /hpf (None Seen); Mucous, Urine 1+ /hpf (<or=2+); Red Blood Cells-Urine 10-25 SEEN /hpf (0-5); Squamous Epithelial Cells - UA 5-10 SEEN /hpf (5-10); White Blood Cells 10-25 SEEN /hpf (0-5)
[2024-02-03] MEDS: Ceftriaxone 1 GM/50 ML BAG IV (06:18)
--- NOTE | 2024-02-03 07:17 | PCM.HP.STD ---
HPI - General General Date of Admission: 02/03/24 Date of Service: 02/03/24 Chief Complaint: Right flank pain HPI Narrative SOLEDAD LOYOLA, is a 28 F known to me with a history of kidney stones. She presented to the emergency room with excruciating right-sided flank pain, right lower quadrant abdominal pain with nausea. No vomiting. No hematuria or dysuria. She has felt like she had a fever at home and was very hot but she did not take her temperature. [facility] Medical History Anxiety and depression Asthma Bilateral ovarian cysts Diabetes mellitus, type 2 Kidney stones Migraines Morbid obesity PCOS (polycystic ovarian syndrome) Home Medications albuterol sulfate 90 mcg/actuation breath activated powder inhaler 2 puff inhalation Q6H PRN Sob &/Or Wheezing 05/08/18 [History Last Taken Unknown] ibuprofen 800 mg tablet 800 mg PO Q8H PRN PRN Pain Or Fever 02/26/20 [History Last Taken Unknown] biotin 5,000 mcg disintegrating tablet 10,000 mcg PO DAILY 08/25/23 [History Last Taken Unknown] dulaglutide 0.75 mg/0.5 mL subcutaneous pen injector (Trulicity) 0.75 mg subcut FR 08/25/23 [History Last Taken Unknown] meloxicam 15 mg tablet 15 mg PO DAILY 08/25/23 [History Last Taken Unknown] metformin 1,000 mg tablet 1,000 mg PO BID 08/25/23 [History Last Taken Unknown] valacyclovir 500 mg tablet 500 mg PO DAILY herpies flair 08/25/23 [History Last Taken Unknown] ondansetron 4 mg disintegrating tablet 8 mg (2 x 4 mg) PO Q8H PRN PRN Nausea #20 tabs 08/26/23 [Rx Last Taken Unknown] cholecalciferol (vitamin D3) 1,250 mcg (50,000 unit) capsule 50,000 unit PO FR 12/04/23 [History Last Taken Unknown] cyclobenzaprine 10 mg tablet 10 mg PO TID PRN muscle spasm 12/04/23 [History Last Taken Unknown] loratadine 10 mg tablet 10 mg PO Q24H 12/04/23 [History Last Taken Unknown] pregabalin 75 mg capsule 75 mg PO Q8H 12/04/23 [History Last Taken Unknown] atorvastatin 20 mg tablet 20 mg PO QHS 1 month #30 tabs 12/05/23 [Rx Last Taken Unknown] lisinopril 20 mg tablet 20 mg PO DAILY #30 tabs 12/05/23 [Rx Last Taken Unknown] losartan 100 mg-hydrochlorothiazide 12.5 mg tablet 1 tab PO DAILY 02/03/24 [History Last Taken Unknown] mecobalamin (vitamin B12) 1,000 mcg disintegrating tablet,sublingual 1,000 mcg sublingual DAILY 02/03/24 [History Last Taken Unknown] metformin 500 mg tablet 500 mg PO QPM 02/03/24 [History Last Taken Unknown] Allergy/AdvReac Type Severity Reaction Status Date / Time hydralazine AdvReac Mild Other Verified 02/03/24 12:05 Family History Mother Diabetes Kidney disease Surgical History corrective eye surgery History of cholecystectomy History of ear, nose, and throat (ENT) surgery History of tonsillectomy S/P laparoscopic procedure Social History household members: significant other Smoking Status: Never smoker alcohol intake: never substance use type: marijuana and other details: Edible cannabis OTC twice weekly. caffeine: No what type of physical activity do you participate in: walking seatbelt use: always do you feel safe at home: Yes additional social history: [employer] Patient is unemployed ROS Constitutional Constitutional: Reports body ache(s), chills and excessive sweating; Denies fever(s) Eyes Eyes: Reports systems reviewed and no addt'l complaints, except as documented ENT HEENT: Reports systems reviewed and no addt'l complaints, except as documented Cardiovascular Cardiovascular: Reports abdominal pain and nausea; Denies chest pain, dizziness or dyspnea Respiratory/Chest Respiratory/Chest: Denies chest congestion, cough, dyspnea or inability to speak Gastrointestinal Gastrointestinal: Reports abdominal pain and nausea Genitourinary Genitourinary: Reports abdominal discomfort and flank pain; Denies hematuria, urinary frequency or urinary urgency Musculoskeletal Musculoskeletal: Reports back pain Integumentary Integumentary: Reports systems reviewed and no addt'l complaints, except as documented Neurologic Neurologic: Reports systems reviewed and no addt'l complaints, except as documented Psychiatric Psychiatric: Reports systems reviewed and no addt'l complaints, except as documented Endocrine Endocrinology: Reports systems reviewed and no addt'l complaints, except as documented Hematologic/Lymphatic Hematologic/Lymphatic: Reports systems reviewed and no addt'l complaints, except as documented Allergic/Immunologic Allergic/Immunologic: Reports systems reviewed and no addt'l complaints, except as documented Vital Signs Vital Signs Vital Signs: 02/03/24 02:58 02/03/24 05:00 02/03/24 06:22 Temperature 97.1 F L 97.8 F 98.8 F Temperature Source Temporal Oral Pulse Rate 121 H 101 H 78 Respiratory Rate 16 19 H Blood Pressure 149/84 H 137/80 H 132/89 H Blood Pressure Mean 105 99 103 Pulse Ox 99 97 97 Oxygen Delivery Method Room Air Room Air Weight Weight: 153.8 kg Body Mass Index (BMI) 60.0 Physical Exam Const alert, oriented x3 and no apparent distress HEENT normocephalic, head/scalp atraumatic, hearing grossly normal bilaterally, external nose normal and moist oral mucous membranes Eyes General Eye: normal appearance of both eyes Neck supple General: normal visual inspection and trachea midline Lymph Lymphatic: no lymphedema noted Chest inspection of chest normal Resp normal respiratory effort, normal air movement and no retractions Cardio regular rhythm Rate: tachycardic GI soft to palpation and non-distended Bladder / Kidney Exam: No catheter in place and CVA tenderness right Extremity normal to inspection Skin no rashes or lesions noted, no jaundice, no petechiae and no mottling Neuro oriented x3, CN's II-XII intact bilaterally and moves all extremities Psych mental status grossly normal and thought process normal Results Lab / Micro Data 02/03/24 03:08 02/03/24 03:08 Labs: Laboratory Results - last 24 hr 02/03/24 03:08: WBC 13.4 H, RBC 4.69, Hgb 12.6, Hct 39.9, MCV 85.1, MCH 26.9 L, MCHC 31.6 L, RDW Std Deviation 44.9 H, RDW Coeff of Servando 14.6, Plt Count 491 H, MPV 9.8, Immature Gran % (Auto) 0.400, Neut % (Auto) 68.2, Lymph % (Auto) 23.0, [place] % (Auto) 6.3, Eos % (Auto) 1.6, Baso % (Auto) 0.5, Absolute Neuts (auto) 9.2 H, Absolute Lymphs (auto) 3.09, Nucleated RBC % 0, Sodium 134 L, Potassium 4.0, Chloride 102, Carbon Dioxide 24.0, Anion Gap 8, BUN 15, Creatinine 1.08 H, Estim Creat Clear Calc 111.78, Est GFR (MDRD) Af Amer 77, Est GFR (MDRD) Non-Af 63, BUN/Creatinine Ratio 13.9, Glucose 281 H, Calcium 9.0, Serum , Qual NEGATIVE 02/03/24 04:45: Urine Color Yellow, Urine Clarity Clear, Urine pH 5.0, Ur Specific [place] 1.015, Urine Protein 100 H, Urine Glucose (UA) 100 H, Urine Ketones 5 H, Urine Occult Blood 250 H, Urine Nitrite Negative, Urine Bilirubin Negative, Urine Urobilinogen Normal, Ur Leukocyte Esterase 100 H, Urine RBC 10-25 SEEN, Urine WBC 10-25 SEEN, Ur Squamous Epith Cells 5-10 SEEN, Urine Bacteria 2+, Urine Mucus 1+ Imaging Radiology Impression Abdomen/Pelvis CT 02/03/24 03:07 IMPRESSION: Suggestion of right nephrolithiasis obstructing renal calyces with inflammatory change as described above. Fatty liver with likely associated hepatomegaly again noted. Electronically Signed: Michael Montenegro MD at 5:22 EDT , Assessment & Plan Assessment/Plan (1) Right flank pain: (2) Calculus of renal pelvis: PLAN: Plan Proceed with cystoscopy, right ureteral stent insertion in preparation for ureteroscopy stone removal in a few weeks. Informed consent obtained. Complete a course of antibiotics Stone analysis
[2024-02-03] MEDS: Lactated Ringers 1,000 ML 125 ML IV (07:47)
[2024-02-03 07:55] LABS: Pathology Specimen Additional SEE PATHOLOGY REPORT
[2024-02-03] MEDS: Morphine 2 MG/ML Syringe IV (10:27)
[2024-02-03] MEDS: Lisinopril 20 MG Tablet PO (10:30)
[2024-02-03] MEDS: hydroCHLOROthiazide 12.5mg 12.5 MG PO (10:30)
[2024-02-03] MEDS: Losartan Potassium 100 MG Tablet PO (10:30)
[2024-02-03 11:07] LABS: Hemoglobin A1c 6.8 % (3.8-5.6)
[2024-02-03] MEDS: Ipratropium/Albuterol Sulfate 3 ML AMPUL.NEB INHALATION (12:13)
[2024-02-03] MEDS: Lactated Ringers 1,000 ML 15 ML IV (12:14)
--- NOTE | 2024-02-03 12:17 | CASEMGMT ---
FERNANDO CHAVARRIA Assessment Face to Face with patient for initial transition planning/care coordination assessment. FERNANDO CM introduced self and role at [facility], pt voices understanding. Pt is A&Ox4 and is resting comfortably in bed and is calm. Care providers, pharmacy, and demographics verified. Admitting dx: Renal Pelvis Obstruction/ Stones PCP: Xiang Ruiz Specialists: Jonn (U[facility]), Dr. Tyree Diana ( [facility]) Preferred Pharmacy: [facility] Insurance: [employer] Prescription Benefit: Yes LNOK: Catrachito Mcintyre (Aunt) Living Arrangements: Pt lives alone in a ground level apartment with 3 steps to enter. Pt states that she has a SO that will provide support to the pt once she returns home ADLs/IADLs: Ind Transportation: Pt does not drive. SO provided transportation DME: [employer] Cuff. Rollator. Cane. Shower Bench HHC/SNF: Denies history or needs Pt?s goal: Home Plan: 6-click is 23. Pt denies the need for additional therapy after DC. Pt states that her Aunt and SO will provide the pt with support once she returns home. Pt denies further questions or concerns at this time. CM to follow for safe DC from [facility]. Cristiana Gonzalez RN, CM
--- NOTE | 2024-02-03 12:40 | OP.PCM_ITS ---
Report of Operation Date of Procedure: 02/03/24 Pre-Operative Diagnosis: Right renal stones, urinary tract infection Post-Operative Diagnosis: Same Surgery/Procedure Performed:: Cystoscopy, right ureteral stent inserted Surgeon: Sarah Lunsford Type of Anesthesia: MAC Description of Procedure: The patient is a 28-year-old with obstructing right stone with stranding and uncontrolled pain. She presents for a cystoscopy and right ureteral stent insertion. Informed consent was obtained. The patient was taken to the operating room and placed on the operating room table. Anesthesia monitored the head, neck, airway, IV access and vital signs throughout the case. Once anesthesia was appropriate ministered, she was placed into dorsolithotomy position was prepped and draped in usual sterile fashion. The cystoscope was inserted through the urethra under direct visualization into the urinary bladder. There were no areas of, ulceration identified, however, there were several 1mm stone fragments seen on the floor of the bladder. The right ureteral orifice was identified and intubated with a 0.035 Glidewire. It was seen curling within the renal pelvis. A 6 [place] 24 cm JJ stent was placed in good position over the wire with curling in the urinary bladder and the renal pelvis. The patient's bladder was then emptied and the case was terminated. She was awakened and taken to the recovery room in good condition. There were no complications during this procedure. Grafts/Implants Used: 6 x 24 JJ stent Complications None Admit VTE Documentation VTE Present on Admission: Yes VTE Mechan Device Prophylaxis: SCD's VTE Pharm Prophylaxis ordered?: No Reason prophylaxis not ordered:: Treatment Not Indicated
--- NOTE | 2024-02-03 12:43 | DCINST_ITS ---
Discharge Instructions Diet Discharge Diet: No restrictions Activity Discharge Activity: Return to Normal Activity Dressing / Incision Call your doctor if you observe: Fever of 101 or Higher, Inability to urinate and Inability to have a bowel movement Follow Up Care Please Follow Up With: Sarah Lunsford MD When: The office will contact her to make arrangements for subsequent surgical intervention. Test Results: Test results from this visit will be discussed in further detail at your follow- up appointment, if applicable. Discharge Plan Admission Admit Date/Time: 02/03/24 07:10 Attending Provider: Sarah Lunsford Primary Care Provider: Xiang Ruiz Discharge Orders/Prescriptions Prescriptions: New phenazopyridine [Pyridium] 200 mg tablet 200 mg PO TID PRN PRN (Reason: Bladder Spasms) 7 Days Qty: 30 0RF oxycodone-acetaminophen [Percocet] 5-325 mg tablet 1 tab PO Q8H PRN (Reason: pain) 3 Days Qty: 10 0RF cephalexin [cephalexin] 500 mg capsule 500 mg PO 3XD 7 Days Qty: 21 0RF Continued albuterol sulfate 90 mcg/actuation aerosol powdr breath activated 2 puff INHALATION Q6H PRN (Reason: Sob &/Or Wheezing) ibuprofen 800 MG tablet 800 mg PO Q8H PRN PRN (Reason: Pain Or Fever) Hold Instructions: Hold it and check with PCP as she is on 2 NSAIDs Rx Instructions: take with food meloxicam 15 mg tablet 15 mg PO DAILY Patient Comments: take 1 tablet by mouth once daily with food Trulicity 0.75 mg/0.5 mL pen injector 0.75 mg SUBCUT FR Patient Comments: inject 0.5 milliliters ( 0.75 milligrams ) subcutaneously ONCE A WEEK- mondays metformin 1,000 mg tablet 1,000 mg PO BID Patient Comments: take 1 tablet by mouth twice a day with meals valacyclovir 500 mg tablet 500 mg PO DAILY Hold Instructions: Order Changed biotin 5,000 mcg tablet,disintegrating 10,000 mcg PO DAILY ondansetron 4 mg tablet,disintegrating 8 mg PO Q8H PRN PRN (Reason: Nausea) Qty: 20 0RF cholecalciferol (vitamin D3) 1,250 mcg (50,000 unit) capsule 50,000 unit PO FR Patient Comments: take 1 capsule by mouth every week loratadine 10 mg tablet 10 mg PO Q24H pregabalin 75 mg capsule 75 mg PO Q8H Patient Comments: has not started yet cyclobenzaprine 10 mg tablet 10 mg PO TID PRN (Reason: muscle spasm) lisinopril 20 mg tablet 20 mg PO DAILY Qty: 30 2RF atorvastatin 20 mg tablet 20 mg PO QHS 30 Days Qty: 30 2RF metformin 500 mg tablet 500 mg PO QPM mecobalamin (vitamin B12) 1,000 mcg tablet,disintegrating 1,000 mcg sublingual DAILY Rx Instructions: place tablet under tongue and allow to dissolve for at least30 secs before swallowing losartan-hydrochlorothiazide 100-12.5 mg tablet 1 tab PO DAILY Referrals / Follow Up: Xiang Ruiz, [Primary Care Provider] - Disposition Disposition (needs filled in before D/C Order can be placed): Home, Self Care
[2024-02-03] MEDS: Pregabalin 75 MG Capsule PO (14:50)
[2024-02-03] MEDS: metFORMIN HCl 1,000 MG Tablet 1000 MG PO (17:06)
[2024-02-03] MEDS: metFORMIN HCl 500 MG Tablet PO (17:06)
== END 2024-02-03 19:39 | disposition home or self-care (01) ==
LOC: ED 05:32 → MS3 07:38
PROVIDERS: Anesthesiology; Admitting Provider Urology; Emergency Provider Emergency Medicine; PCP Student in an Organized Health Care Education/Training Program; Visit Provider Urology
PROC: (CPT 52332; principal; 2024-02-03 16:50)
DX: N20.0 Calculus of kidney (principal); Z68.44 Body mass index [BMI] 60.0-69.9, adult; E66.01 Morbid (severe) obesity due to excess calories; E11.9 Type 2 diabetes mellitus without complications; Z79.84 Long term (current) use of oral hypoglycemic drugs; Z79.899 Other long term (current) drug therapy; Z79.85 Long-term (current) use of injectable non-insulin antidiabetic drugs; E28.2 Polycystic ovarian syndrome; F41.8 Other specified anxiety disorders; J45.909 Unspecified asthma, uncomplicated
CPT/HCPCS: 52332; 00910; C2617; 74176; 76000; 80048; 81001; 82360; 83036; 84703; 85025; 87086; 88300; 94640; 96361; 96365; 96375; 96376; 99221; 99285; J7030; J7120; A4216; G0378; J2405

== ENCOUNTER 2024-02-20 07:00 | Day surgery (SDC) | payer MEDICAID, SELFPAY ==
[2024-02-20] VITALS (10 sets, daily range): BP systolic 109–141; BP diastolic 67–86; PULSE 96–118; RESP 16–24; TEMP 36–36.3; O2SAT 91–98; BMI 58.9
--- NOTE | 2024-02-20 | CALC_PTH ---
PATIENT: SOLEDAD LOYOLA LOC: [facility] [place] U#:[id number] AGE/SX: 28/F ROOM: RE02/20/[address]: Dr. Sarah Lunsford MD : 1995 BED: DIS: 02/20/2024 SPEC #: [id number] RECD: 02/20/24 13:13 STATUS: JESSICA HDZMartin #: [id number] EDGAR: 02/20/24 00:[address]: Sarah Lunsford DEPT: SURGICAL PATHOLOGY RECD BY: Karlo Harris ENTERED: 02/20/24 13:13 SP TYPE: Calculi OTHR DR: Dr. Xiang Ruiz DO Tissues: CALCULI Procedures: Surgery Specimen Level I HEADER OPERATION: Cysto, ureteroscopy, laser lithotripsy, basket extraction PRE-OP DIAGNOSIS: Right kidney stone, urinary tract infection, nocturia TISSUE SUBMITTED: Right renal calculi GROSS DIAGNOSIS Right renal calculi, removal: Fragments of unremarkable calculi (gross diagnosis only). / 02/21/2024 COMMENT If chemical analysis is requested on this specimen, please notify the laboratory. GROSS DESCRIPTION Received without fixative labeled with the patient's name and designated ureteral calculi. The specimen consists of a multiple irregular fragment of yellow calculi measuring in aggregate 0.6 x 0.6 x 0.1 cm. The specimen is submitted in its entirety for chemical stone analysis. AM/mr 02/20/2024 CPT: 49599
[2024-02-20 07:29] LABS: Internal QC Validated? YES +Cl - CLEAR BKGD; Pregnancy, Urine Negative Negative
[2024-02-20 07:37] LABS: Bedside Glucose 157 mg/dL (74-106)
[2024-02-20] MEDS: Ipratropium/Albuterol Sulfate 3 ML AMPUL.NEB INHALATION (07:48)
[2024-02-20] MEDS: Lactated Ringers 1,000 ML 15 ML IV (07:48)
[2024-02-20] MEDS: Cefazolin 3 GM in 0.9% Normal Saline (100mL Bag) 100 ML IV (09:33)
--- NOTE | 2024-02-20 11:36 | EX.PCM.DISCH ---
Discharge Instructions Diet Discharge Diet: No restrictions Activity Discharge Activity: Return to Normal Activity Dressing / Incision Call your doctor if you observe: Fever of 101 or Higher, Inability to urinate and Inability to have a bowel movement Follow Up Care Test Results: Test results from this visit will be discussed in further detail at your follow-up appointment, if applicable. Discharge Plan Admission Attending Provider: Sarah Lunsford Primary Care Provider: Xiang Ruiz Instructions Print Language: Northern Irish Discharge Orders/Prescriptions Prescriptions: New oxycodone-acetaminophen [Percocet] 5-325 mg tablet 1 tab PO Q8H PRN (Reason: pain) 3 Days Qty: 10 0RF cephalexin 500 mg capsule 500 mg PO Q12 3 Days Qty: 6 0RF Continued albuterol sulfate 90 mcg/actuation aerosol powdr breath activated 2 puff INHALATION Q6H PRN (Reason: Sob &/Or Wheezing) ibuprofen 800 MG tablet 800 mg PO Q8H PRN PRN (Reason: Pain Or Fever) Rx Instructions: take with food meloxicam 15 mg tablet 15 mg PO DAILY Patient Comments: take 1 tablet by mouth once daily with food Trulicity 0.75 mg/0.5 mL pen injector 0.75 mg SUBCUT FR Patient Comments: inject 0.5 milliliters ( 0.75 milligrams ) subcutaneously ONCE A WEEK- mondays metformin 1,000 mg tablet 1,000 mg PO DAILY Patient Comments: take 1 tablet by mouth twice a day with meals valacyclovir 500 mg tablet 500 mg PO DAILY biotin 5,000 mcg tablet,disintegrating 10,000 mcg PO DAILY ondansetron 4 mg tablet,disintegrating 8 mg PO Q8H PRN PRN (Reason: Nausea) Qty: 20 0RF cholecalciferol (vitamin D3) 1,250 mcg (50,000 unit) capsule 50,000 unit PO FR Patient Comments: take 1 capsule by mouth every week loratadine 10 mg tablet 10 mg PO Q24H pregabalin 75 mg capsule 75 mg PO TID Patient Comments: has not started yet cyclobenzaprine 10 mg tablet 10 mg PO TID PRN (Reason: muscle spasm) lisinopril 20 mg tablet 20 mg PO DAILY Qty: 30 2RF atorvastatin 20 mg tablet 20 mg PO QHS 30 Days Qty: 30 2RF metformin 500 mg tablet 1,500 mg PO QPM mecobalamin (vitamin B12) 1,000 mcg tablet,disintegrating 1,000 mcg sublingual DAILY Rx Instructions: place tablet under tongue and allow to dissolve for at least30 secs before swallowing losartan-hydrochlorothiazide 100-12.5 mg tablet 1 tab PO DAILY phenazopyridine [Pyridium] 200 mg tablet 200 mg PO TID PRN PRN (Reason: Bladder Spasms) 7 Days Qty: 30 0RF Referrals / Follow Up: Xiang Ruiz DO [Primary Care Provider] - Disposition Disposition (needs filled in before D/C Order can be placed): Home, Self Care
--- NOTE | 2024-02-20 16:24 | PCM.OPRPT ---
Report of Operation Date of Procedure: 02/20/24 Pre-Operative Diagnosis: Right renal stones Post-Operative Diagnosis: Same Surgery/Procedure Performed:: Cystoscopy, right ureteroscopy, laser lithotripsy, stone basket extraction, right ureteral stent change Surgeon: Sarah Lunsford Type of Anesthesia: General Specimen's removed: Right renal stone fragments Description of Procedure: The patient is a 28-year-old female who previously underwent a right ureteral stent insertion for passing ureteral stone. She now presents for management of her right renal stones. Informed consent was obtained. She was taken to the operating room and placed on the operating room table. Anesthesia monitored the head, neck, airway, IV access and vital signs throughout the case. Once anesthesia superbly administered, the patient was placed into dorsolithotomy position and was prepped and draped in usual sterile fashion. The cystoscope was inserted through the urethra under direct visualization into the urinary bladder which showed no area of abnormality. The right ureteral stent was removed and replaced with 2 separate 0.035 Glidewire's. 1 was used to for the flexible ureteroscope which was advanced over the wire all the way into the renal pelvis without difficulty. There were no ureteral calculi identified. The flexible ureteroscope was then removed and replaced with a ureteral access sheath. The flexible ureteroscope was then used through the access sheath to gain access to the renal pelvis again where the stones were identified. Laser was used to break the stones into dust and smaller fragments. One of the fragments was larger than first anticipated. It was lasered into smaller pieces within the ureter. It was then removed with the basket. After multiple fragments were removed and lasered the ureter started to become edematous. The decision was made to allow the smaller debris to pass on its own. The ureteroscope was used to remove the access sheath under direct visualization. There were no injuries to the ureter identified. The safety wire was used to place a 6 Georgian 24 cm JJ stent with good positioning in the renal pelvis as well as the urinary bladder. The patient's bladder was then emptied and the cystoscope was removed. She was awakened and taken to the recovery room in good condition. There were no complications during this procedure. Grafts/Implants Used: 6 Georgian by 24 cm JJ stent Complications None Admit VTE Documentation VTE Present on Admission: Yes VTE Mechan Device Prophylaxis: SCD's VTE Pharm Prophylaxis ordered?: No Reason prophylaxis not ordered:: Treatment Not Indicated
== END 2024-02-20 12:37 | disposition home or self-care (01) ==
LOC: SDC 07:00 → AC 07:03
PROVIDERS: PCP Student in an Organized Health Care Education/Training Program; Referring Provider Urology; Visit Provider Urology
PROC: (CPT 52356; principal; 2024-02-20 08:40)
DX: N20.0 Calculus of kidney (principal); E11.9 Type 2 diabetes mellitus without complications; R30.0 Dysuria; I10 Essential (primary) hypertension; Z87.442 Personal history of urinary calculi; N39.0 Urinary tract infection, site not specified; R35.1 Nocturia; E28.2 Polycystic ovarian syndrome; F32.9 Major depressive disorder, single episode, unspecified; F41.9 Anxiety disorder, unspecified; F12.90 Cannabis use, unspecified, uncomplicated
CPT/HCPCS: 52356; 00918; 94640 ×2; 76000; 81025; 82360; 82962; 88300; J7120; C2617; J2405

== ENCOUNTER → 2024-02-26 | Outpatient (CLI) | payer MEDICAID, SELFPAY ==
--- NOTE | 2024-02-26 12:54 | RAD_ITS ---
EXAM: XR ABDOMEN, 1 VIEW CLINICAL INDICATION: KIDNEY STONES TECHNIQUE: Frontal supine view of the abdomen/pelvis. COMPARISON: XR Abdomen dated 01/20/2024 FINDINGS: INTRAPERITONEAL SPACE: IUD noted within the pelvis. GASTROINTESTINAL TRACT: Normal bowel gas pattern. ORGANS: No evidence of urinary tract stone. BONES/JOINTS: No acute abnormality. TUBES, LINES AND DEVICES: Interval placement of a right double-J ureteral stent catheter. RAD/Abdomen Single View IMPRESSION: No evidence of urinary tract stone disease. Right double-J ureteral stent catheter in place. Electronically Signed: Sonny Mora MD at 8:40 EDT ,
[2024-02-26 15:38] LABS: Hematocrit 38.6 % (37-47); Hemoglobin 12.1 g/dL (12.0-15.0); Mean Corp Hgb Conc 31.3 g/dL (32-36); Mean Corpuscular Volume 86.2 fL (81-99); Platelet Count 495 K/mm3 (150-450); RBC Distribution Width CV 14.9 % (11.6-14.6); RBC Distribution Width SD 46.5 fl (35.1-43.9); Red Blood Count 4.48 M/mm3 (4.2-5.4); White Blood Count 14.8 K/mm3 (4.4-11.0)
[2024-02-26 15:55] LABS: Anion Gap 10 (5-15); BUN 13 mg/dL (7-18); BUN/Creat Ratio 12.5 RATIO (10-20); Chloride 97 mmol/L (98-107); Creatinine, Serum 1.04 mg/dL (0.55-1.02); EST Glomerular Filtration Rate 66 mL/min (>60); Est Glom Filt Rate - Afr Amer 80 mL/min (>60); Glucose 213 mg/dL (74-106); Potassium 4.3 mmol/L (3.5-5.1); Sodium Level 130 mmol/L (136-145)
== END | disposition home or self-care (01) ==
LOC: MTRAD 12:43
PROVIDERS: PCP Student in an Organized Health Care Education/Training Program; Referring Provider Urology; Visit Provider Urology
DX: N20.0 Calculus of kidney (principal)
CPT/HCPCS: 36415; 74018; 80048; 85027

== ENCOUNTER 2024-03-08 09:46 | Emergency (ER) | payer MEDICAID, SELFPAY ==
[2024-03-08 09:47] VITALS: BP 172/116; PULSE 110; RESP 18; TEMP 36.7; O2SAT 95; BMI 59.3
[2024-03-08 10:24] LABS: Bacteria 0 SEEN /hpf (None Seen); Mucous, Urine 0 SEEN /hpf (<or=2+); Red Blood Cells-Urine 0 SEEN /hpf (0-5)
[2024-03-08 10:26] LABS: Color, Urine Yellow (Yellow); Glucose, Dipstick Normal (Normal); Ketone-Dipstick 5 mg/dl (Negative); Leukocyte Esterase-Dipstick 500 /ul (Negative); Nitrite-Dipstick Negative (Negative); Occult Blood-Urine 250 /ul (Negative); Protein-Dipstick 100 mg/dl (Negative); Specific Gravity, Urine 1.025 (1.002-1.030); Urine Bilirubin Dipstick Negative (Negative); Urine Clarity Cloudy (Clear); Urine Urobilinogen 1 mg/dl (Normal)
[2024-03-08 10:35] LABS: Squamous Epithelial Cells - UA 0-5 SEEN /hpf (5-10); White Blood Cells >100 SEEN /hpf (0-5)
[2024-03-08 10:39] LABS: Internal QC Validated? YES +Cl - CLEAR BKGD; Pregnancy, Serum, hCG Quali. NEGATIVE Negative; Record Kit Lot#, Serum Preg. HCG0000735774
--- NOTE | 2024-03-08 10:52 | ED.VIS.GI ---
HPI HPI - GI History of Present Illness Chief Complaint: Flank Pain Informant: patient Abdominal Pain/Flank Pain Onset: Today (sev hrs ago) Context: Gradual Onset Timing: Continuous Quality: Aching Location: Right Flank Current Severity: Severe Maximum Severity: Severe Worsened by: Nothing Relieved by: Nothing Nausea/Vomiting/Emesis GI Symptom: Positive for Nausea; Negative for Vomiting Associated Symptoms Associated Symptoms: Negative for Dysuria LMP: now; therefore cannot tell if she has hematuria or not Narrative Narrative: Patient states she had some kidney stones that were blasted and she had a stent, the stent was removed 1 week ago, she denies passing any stones or gravel that she has been able to note or see, today the similar kidney stone pain returned and is much worse than it was before. She denies any fevers or chills or dysuria. She has been on multiple rounds of antibiotics recently, and she states as a result of the infection resolving the pulled the stent a week ago. She follows with Dr. Lunsford with urology. [facility] Medical History Wears glasses Marijuana use Alcohol use Arthritis Low iron Fatty liver High cholesterol Easy bruising Back pain Syncope Dietary restriction Heartburn Non-smoker Shortness of breath on exertion Leg cramps History of pain when walking History of edema History of echocardiogram Morbid obesity Diabetes mellitus, type 2 Asthma Migraines Bilateral ovarian cysts PCOS (polycystic ovarian syndrome) Anxiety and depression Home Medications ?Medication ?Instructions ?Recorded ?Last Taken ?Type albuterol sulfate 90 mcg/actuation 2 puff inhalation Q6H PRN Sob &/Or 05/08/18 Unknown History breath activated powder inhaler Wheezing ibuprofen 800 mg tablet 800 mg PO Q8H PRN PRN Pain Or Fever 02/26/20 Unknown History biotin 5,000 mcg disintegrating 10,000 mcg PO DAILY 08/25/23 Unknown History tablet dulaglutide 0.75 mg/0.5 mL 0.75 mg subcut FR 08/25/23 Unknown History subcutaneous pen injector (Trulicity) meloxicam 15 mg tablet 15 mg PO DAILY 08/25/23 Unknown History metformin 1,000 mg tablet 1,000 mg PO DAILY 08/25/23 Unknown History valacyclovir 500 mg tablet 500 mg PO DAILY herpies flair 08/25/23 Unknown History ondansetron 4 mg disintegrating 8 mg (2 x 4 mg) PO Q8H PRN PRN 08/26/23 Unknown Rx tablet Nausea #20 tabs cholecalciferol (vitamin D3) 1,250 50,000 unit PO FR 12/04/23 Unknown History mcg (50,000 unit) capsule cyclobenzaprine 10 mg tablet 10 mg PO TID PRN muscle spasm 12/04/23 Unknown History loratadine 10 mg tablet 10 mg PO Q24H 12/04/23 Unknown History pregabalin 75 mg capsule 75 mg PO TID 12/04/23 Unknown History atorvastatin 20 mg tablet 20 mg PO QHS 1 month #30 tabs 12/05/23 Unknown Rx lisinopril 20 mg tablet 20 mg PO DAILY #30 tabs 12/05/23 Unknown Rx losartan 100 1 tab PO DAILY 02/03/24 Unknown History mg-hydrochlorothiazide 12.5 mg tablet mecobalamin (vitamin B12) 1,000 1,000 mcg sublingual DAILY 02/03/24 Unknown History mcg disintegrating tablet,sublingual metformin 500 mg tablet 1,500 mg PO QPM 02/03/24 Unknown History phenazopyridine 200 mg tablet 200 mg PO TID PRN PRN Bladder 02/03/24 Unknown Rx (Pyridium) Spasms 7 days #30 tabs ciprofloxacin HCl 500 mg tablet 500 mg PO BID #14 TABLETS 03/08/24 Unknown Rx cyanocobalamin (vitamin B-12) 1,000 mcg PO DAILY 03/08/24 Unknown History 1,000 mcg tablet (Vitamin B-12) oxycodone-acetaminophen 5 mg-325 1 tab PO Q6H 3 days #12 tabs 03/08/24 Unknown Rx mg tablet (Percocet) Allergy/AdvReac Type Severity Reaction Status Date / Time hydralazine AdvReac Mild Other Verified 03/08/24 09:47 Family History Mother Diabetes Kidney disease Surgical History Hx of cystoscopy History of cholecystectomy S/P laparoscopic procedure History of tonsillectomy corrective eye surgery History of ear, nose, and throat (ENT) surgery Social History household members: significant other Smoking Status: Never smoker alcohol intake: never substance use type: marijuana and other details: Edible cannabis OTC twice weekly. caffeine: No what type of physical activity do you participate in: walking seatbelt use: always do you feel safe at home: Yes additional social history: [employer] Patient is unemployed ROS ROS ED Constitutional Constitutional ED: Denies chills or fever(s) Eyes Eyes: Denies change in vision or diplopia ENT ENT ED: Denies rhinorrhea or sore throat Cardiovascular Cardiovascular: Denies chest pain or palpitations Respiratory/Chest Respiratory/Chest: Denies cough or dyspnea Gastrointestinal Gastrointestinal: Reports abdominal pain and nausea; Denies diarrhea or vomiting Genitourinary Genitourinary ED: Reports LMP (females 10-50) Details: Comment: (now); Denies dysuria or hematuria Musculoskeletal Musculoskeletal: Reports back pain; Denies neck pain Integumentary Denies abscess or rash Neurologic Neurologic: Denies headache(s), paresthesias or weakness Psychiatric Psychiatric: Denies suicidal thoughts EXAM Physical Exam Const Vital Signs: 03/08/24 09:47 03/08/24 11:52 03/08/24 13:00 Temperature 98.0 F 98.0 F Temperature Source Temporal Oral Pulse Rate 110 H 104 H 108 H Respiratory Rate 18 20 H 18 Blood Pressure 172/116 H 147/88 H 131/77 H Blood Pressure Mean 134 107 95 Pulse Ox 95 98 94 Oxygen Delivery Method Room Air Room Air Room Air Positive well nourished, well developed and obese General Appearance ED: well developed and NAD Nutritional Appearance: obese HEENT Reports moist mucous membranes normocephalic and atraumatic Eyes PERRL and EOMs intact bilaterally Neck full ROM and supple Resp normal respiratory effort and clear to auscultation bilaterally Cardio regular rate, regular rhythm and no murmurs GI non-distended GI Narrative: Mildly tender throughout right side of abdomen Auscultation: normoactive bowel sounds Palpation: soft Back/Spine no CVA tenderness Back/Spine Narrative: She does not have CVA tenderness but she is very superficially point tender in her right low back well caudal to the right CVA. The skin is normal on inspection here. General Back: other FROM Extremity normal to inspection General Extremety ED: Negative for edema, pulses abnormal or tenderness General Extremity: Negative for edema or pulses abnormal Neuro oriented x3, CN's II-XII intact bilaterally and no sensory deficits noted Sensorium / Orientation: awake and alert Motor Exam: strength 5/5 throughout Psych Psych Narrative: A little anxious. In pain. Skin no rashes or lesions noted and no wounds MDM MDM MDM Narrative Medical decision making narrative: Urinalysis here shows significant pyuria and other signs of infection, although negative for nitrite. Does not appear to be contaminated, sent for culture. In the meantime we treat her symptoms and sent labs, her is negative. After treatment with morphine and Toradol, she is not feeling any better. She has a leukocytosis of 16.5. I discussed with her urologist Dr. Lunsford who advises scanning her because of the large burden of uric acid stones that she had. I am also giving her more pain medication. CT I reviewed the images and the results which I agree with, she does have a renal pelvic stone on the right with some hydronephrosis but no ureteral stone/obstruction. This is consistent with a pyelonephritis. She is feeling better after more pain medication. Discussed with urology who advises putting her on Cipro and have her follow-up closely, we did send a culture, I am sending her home with pain medication she is okay with that. Given her a dose of IV Rocephin 1 g first. History & Record Review Additional record(s) reviewed:: Other (Surgical report stent change 02/20/2024; urine culture from 02/02 negative) Lab Data Attestation: I reviewed the patient's lab results. Labs: Laboratory Results - last 24 hr 03/08/24 03/08/24 10:10 10:20 WBC 16.5 H RBC 4.38 Hgb 12.0 Hct 37.8 MCV 86.3 MCH 27.4 MCHC 31.7 L RDW Std Deviation 45.0 H RDW Coeff of Servando 14.5 Plt Count 696 H MPV 9.3 Immature Gran % (Auto) 0.700 Neut % (Auto) 64.5 Lymph % (Auto) 26.9 Real % (Auto) 5.9 Eos % (Auto) 1.6 Baso % (Auto) 0.4 Absolute Neuts (auto) 10.6 H Absolute Lymphs (auto) 4.45 Nucleated RBC % 0 Sodium 138 Potassium 4.1 Chloride 102 Carbon Dioxide 24.0 Anion Gap 12 BUN 14 Creatinine 0.96 Estim Creat Clear Calc 124.75 Est GFR (MDRD) Af Amer 88 Est GFR (MDRD) Non-Af 72 BUN/Creatinine Ratio 14.6 Glucose 189 H Calcium 9.3 Serum , Qual NEGATIVE Urine Color Yellow Urine Clarity Cloudy Urine pH 5.0 Ur Specific Pala 1.025 Urine Protein 100 H Urine Glucose (UA) Normal Urine Ketones 5 H Urine Occult Blood 250 H Urine Nitrite Negative Urine Bilirubin Negative Urine Urobilinogen 1 H Ur Leukocyte Esterase 500 H Urine RBC 0 SEEN Urine WBC >100 SEEN Ur Squamous Epith Cells 0-5 SEEN Urine Bacteria 0 SEEN Urine Mucus 0 SEEN Radiography Diagnostic Testing: Clinical Impression(s) from Imaging Studies Abdomen/Pelvis CT 03/08/24 12:41 IMPRESSION: 1. Persistent 6 mm stone in the right renal pelvis with perinephric and stranding minimal right hydronephrosis. 2. Few stones in the right kidney. 3. Otherwise no focal acute inflammatory process. Electronically Signed: Zachariah Christianson MD at 13:09 EDT , Management Discussion w/another healthcare provider: Customer Engagement Representative (Urology Dr. Lunsford) Discharge Plan Triage Chief Complaint: Flank Pain ED Provider: Philipp Redd Dx/Rx/DC Orders Clinical Impression: Pyelonephritis, Calculus of renal pelvis Instructions: ED Pyelonephritis, Female (Adult) Prescriptions: New ciprofloxacin HCl 500 mg tablet 500 mg PO BID Qty: 14 0RF oxycodone-acetaminophen [Percocet] 5-325 mg tablet 1 tab PO Q6H 3 Days Qty: 12 0RF Continued albuterol sulfate 90 mcg/actuation aerosol powdr breath activated 2 puff INHALATION Q6H PRN (Reason: Sob &/Or Wheezing) ibuprofen 800 MG tablet 800 mg PO Q8H PRN PRN (Reason: Pain Or Fever) Rx Instructions: take with food meloxicam 15 mg tablet 15 mg PO DAILY Patient Comments: take 1 tablet by mouth once daily with food Trulicity 0.75 mg/0.5 mL pen injector 0.75 mg SUBCUT FR Patient Comments: inject 0.5 milliliters ( 0.75 milligrams ) subcutaneously ONCE A WEEK- mondays metformin 1,000 mg tablet 1,000 mg PO DAILY Patient Comments: take 1 tablet by mouth twice a day with meals valacyclovir 500 mg tablet 500 mg PO DAILY biotin 5,000 mcg tablet,disintegrating 10,000 mcg PO DAILY ondansetron 4 mg tablet,disintegrating 8 mg PO Q8H PRN PRN (Reason: Nausea) Qty: 20 0RF cyanocobalamin (vitamin B-12) [Vitamin B-12] 1,000 mcg tablet 1,000 mcg PO DAILY cholecalciferol (vitamin D3) 1,250 mcg (50,000 unit) capsule 50,000 unit PO FR Patient Comments: take 1 capsule by mouth every week loratadine 10 mg tablet 10 mg PO Q24H pregabalin 75 mg capsule 75 mg PO TID Patient Comments: has not started yet cyclobenzaprine 10 mg tablet 10 mg PO TID PRN (Reason: muscle spasm) lisinopril 20 mg tablet 20 mg PO DAILY Qty: 30 2RF atorvastatin 20 mg tablet 20 mg PO QHS 30 Days Qty: 30 2RF metformin 500 mg tablet 1,500 mg PO QPM mecobalamin (vitamin B12) 1,000 mcg tablet,disintegrating 1,000 mcg sublingual DAILY Rx Instructions: place tablet under tongue and allow to dissolve for at least30 secs before swallowing losartan-hydrochlorothiazide 100-12.5 mg tablet 1 tab PO DAILY phenazopyridine [Pyridium] 200 mg tablet 200 mg PO TID PRN PRN (Reason: Bladder Spasms) 7 Days Qty: 30 0RF Discontinued oxycodone-acetaminophen [Percocet] 5-325 mg tablet 1 tab PO Q8H PRN (Reason: pain) 3 Days Qty: 10 0RF cephalexin 500 mg capsule 500 mg PO Q12 3 Days Qty: 6 0RF Primary Care Provider: Xiang Ruiz Referrals: Sarah Lunsford MD [Med Staff - Active Staff] - As soon as possible (If you end up in intractable pain or have other problems, call the hospital to get ahold of Dr. Lunsford first before coming back to the ER) Xiang Ruiz, [Primary Care Provider] - Print Language: Danish Disposition Disposition: Home, Self Care
[2024-03-08] MEDS: Ketorolac 30 MG/ML Syringe IV (11:00)
[2024-03-08] MEDS: Ondansetron 4 MG/2 ML Vial IV (11:01)
[2024-03-08] MEDS: Morphine 4 MG/ML Syringe IV (11:02)
[2024-03-08 11:04] LABS: Absolute Lymphocyte Count 4.45 X10^3/uL (0.83-4.51); Absolute Neutrophil Count 10.6 X10^3/uL (2.0-7.7); Basophil# 0.06 X10^3/uL; Basophil% 0.4 % (0-1); Eosinophil# 0.27 X10^3/uL; Eosinophils% 1.6 % (0-5); Hematocrit 37.8 % (37-47); Lymphocyte # 4.45 X10^3/ul (0.83-4.51); Lymphocyte % 26.9 % (19-41); Mean Corp Hgb Conc 31.7 g/dL (32-36); Mean Corpuscular Hgb 27.4 pg (27.0-32.0); Mean Corpuscular Volume 86.3 fL (81-99); Mean Platelet Vol. 9.3 fl (6.2-12.0); Monocyte# 0.98 X10^3/uL; Monocyte% 5.9 % (0-10); NRBC Flagged by Analyzer 0 % (0-5); Neutrophil # 10.64 X10^3/uL (2.7-7.7); Neutrophil % 64.5 % (47-70); Platelet Count 696 K/mm3 (150-450); RBC Distribution Width CV 14.5 % (11.6-14.6); Red Blood Count 4.38 M/mm3 (4.2-5.4); White Blood Count 16.5 K/mm3 (4.4-11.0)
[2024-03-08 11:11] LABS: Anion Gap 12 (5-15); BUN 14 mg/dL (7-18); BUN/Creat Ratio 14.6 RATIO (10-20); Calcium,Total 9.3 mg/dL (8.5-10.1); Chloride 102 mmol/L (98-107); Creatinine, Serum 0.96 mg/dL (0.55-1.02); EST Glomerular Filtration Rate 72 mL/min (>60); Est Glom Filt Rate - Afr Amer 88 mL/min (>60); Estimated Creatinine Clearance 124.75 ml/min; Glucose 189 mg/dL (74-106); Potassium 4.1 mmol/L (3.5-5.1); Sodium Level 138 mmol/L (136-145)
[2024-03-08 11:52] VITALS: BP 147/88; PULSE 104; RESP 20; TEMP 36.7; O2SAT 98
[2024-03-08] MEDS: HYDROmorphone 1 MG/ML Syringe IV (12:26)
[2024-03-08] MEDS: Metoclopramide 10 MG/2 ML Vial 5 MG IV (12:26)
--- NOTE | 2024-03-08 12:41 | CT_ITS ---
INDICATION: R flank pain EXAMINATION: CT ABDOMEN AND PELVIS WITHOUT CONTRAST - CT Abdomen And Pelvis W/O Contrast Injection TECHNIQUE: Helically acquired images were obtained of the abdomen and pelvis without oral or IV contrast. The protocol utilizes one or more of the following dose reduction techniques: automated exposure control, adjustment of mA and/or kV according to patient size,and/or use of iterative reconstruction technique. IV Contrast dosage and agent: None. Oral contrast: None. RADIATION DOSAGE (If Supplied By Facility): CTDIvol = ( 24.18 ) mGy, DLP = ( 1304.78 ) mGycm COMPARISON: Prior study dated: 02/03/2024 FINDINGS: LOWER CHEST: Lung bases are clear. No cardiomegaly or pericardial effusion. LIVER: Mild hepatic steatosis. No focal mass. GALLBLADDER AND BILIARY TREE: Status post cholecystectomy. No intra- or extrahepatic biliary ductal dilation. PANCREAS: No focal cystic or solid mass. SPLEEN: Normal size without focal cystic or solid mass. ADRENAL GLANDS: No nodules. KIDNEYS AND URETERS: Persistent 6 mm stone in the right renal pelvis. There is another stone migrated to the lower pole of the right kidney. Persistent right perinephric stranding with minimal right hydronephrosis. Unremarkable left kidney. PERITONEUM: No ascites or free air. No other fluid collection. BOWEL: No evidence of acute appendicitis. No stomach or bowel distension. No focal inflammatory change. LYMPH NODES: No enlarged mesenteric or retroperitoneal lymph nodes. VESSELS: Aorta is non-dilated. URINARY BLADDER: Not well distended. REPRODUCTIVE ORGANS: IUD seen in place. Tampon is seen in the cervix. No pelvic mass. ABDOMINAL WALL: No discrete abdominal or pelvic wall hernia. BONES: No lytic or blastic abnormality. CT/Abdomen/Pelvis without Cont IMPRESSION: 1. Persistent 6 mm stone in the right renal pelvis with perinephric and stranding minimal right hydronephrosis. 2. Few stones in the right kidney. 3. Otherwise no focal acute inflammatory process. Electronically Signed: Zachariah Christianson MD at 13:09 EDT ,
[2024-03-08 13:00] VITALS: BP 131/77; PULSE 108; RESP 18; O2SAT 94
[2024-03-08] MEDS: Ceftriaxone 1 GM/50 ML BAG IV (14:54)
[2024-03-08 15:00] VITALS: BP 149/89; PULSE 87; RESP 18; O2SAT 99
== END 2024-03-08 15:21 | disposition home or self-care (01) ==
PROVIDERS: Emergency Provider Emergency Medicine; PCP Student in an Organized Health Care Education/Training Program; Visit Provider Emergency Medicine
DX: N20.0 Calculus of kidney (principal); E11.9 Type 2 diabetes mellitus without complications; R11.2 Nausea with vomiting, unspecified; N12 Tubulo-interstitial nephritis, not specified as acute or chronic; E78.00 Pure hypercholesterolemia, unspecified; Z79.85 Long-term (current) use of injectable non-insulin antidiabetic drugs; Z79.84 Long term (current) use of oral hypoglycemic drugs; Z79.899 Other long term (current) drug therapy; Z90.49 Acquired absence of other specified parts of digestive tract
CPT/HCPCS: 74176; 80048; 81001; 84703; 85025; 87086; 87088; 96365; 96375; 99283; J7050; A4216; J2405

== ENCOUNTER → 2024-03-20 | Outpatient (CLI) | payer MEDICAID, SELFPAY ==
[2024-03-20 17:43] LABS: Hematocrit 36.1 % (37-47); Hemoglobin 10.9 g/dL (12.0-15.0); Mean Corp Hgb Conc 30.2 g/dL (32-36); Mean Corpuscular Hgb 26.1 pg (27.0-32.0); Mean Corpuscular Volume 86.6 fL (81-99); Platelet Count 730 K/mm3 (150-450); RBC Distribution Width CV 14.8 % (11.6-14.6); RBC Distribution Width SD 47.3 fl (35.1-43.9); Red Blood Count 4.17 M/mm3 (4.2-5.4); White Blood Count 11.5 K/mm3 (4.4-11.0)
[2024-03-20 18:28] LABS: Anion Gap 10 (5-15); BUN 20 mg/dL (7-18); BUN/Creat Ratio 17.7 RATIO (10-20); Calcium,Total 10.2 mg/dL (8.5-10.1); Chloride 101 mmol/L (98-107); Creatinine, Serum 1.13 mg/dL (0.55-1.02); EST Glomerular Filtration Rate 60 mL/min (>60); Est Glom Filt Rate - Afr Amer 73 mL/min (>60); Glucose 161 mg/dL (74-106); Potassium 4.1 mmol/L (3.5-5.1); Sodium Level 135 mmol/L (136-145)
== END | disposition home or self-care (01) ==
LOC: MTLAB 15:52
PROVIDERS: PCP Student in an Organized Health Care Education/Training Program; Referring Provider Urology; Visit Provider Urology
DX: N20.0 Calculus of kidney (principal)
CPT/HCPCS: 36415; 80048; 85027

== ENCOUNTER 2024-03-21 16:14 | Emergency (ER) | payer MEDICAID, SELFPAY ==
[2024-03-21 16:15] VITALS: BP 155/113; PULSE 128; PULSE 129; RESP 16; TEMP 36.6; O2SAT 96; O2SAT 97; BMI 57.4
--- NOTE | 2024-03-21 16:27 | CT_ITS ---
STUDY: CT ABDOMEN AND PELVIS WITHOUT CONTRAST REASON FOR EXAM: Female, 28 years old. RT FLANK PAIN RADIATION DOSAGE (If Supplied By Facility): CTDIvol = ( 34.45 ) mGy, DLP = ( 1747.32 ) mGycm TECHNIQUE: Transaxial images were obtained from the dome of the diaphragm to the symphysis pubis without oral contrast, and without intravenous contrast. Sagittal and coronal images were reconstructed. Individualized dose optimization techniques were used for this CT. COMPARISON: None. FINDINGS: The visualized lung bases are unremarkable. The visualized portions of the heart are within normal limits. Normal liver. Status post cholecystectomy. No significant dilatation of the extrahepatic biliary system. Normal spleen. Normal pancreas. Normal bilateral adrenal glands. Up to 7 mm calculi in the right kidney and mild perinephric stranding. Right hydronephrosis with an obstructive 5 mm stone at the right UPJ. Normal left kidney. Normal visualized stomach. Normal small intestine. Normal colon. The appendix is not visualized. Normal abdominal aorta. Normal inferior vena cava. Mild adenopathy in the retroperitoneum. Normal urinary bladder. IUD in the uterus. Normal abdominal wall. Normal osseous structures. CT/Abdomen/Pelvis without Cont IMPRESSION: Right renal calculi. Obstructive stone at the right UPJ with mild right hydronephrosis and perinephric stranding. Mild retroperitoneal adenopathy. Electronically Signed: Case Alvarez DO at 17:18 EDT ,
--- NOTE | 2024-03-21 16:28 | EDS_ITS ---
HPI HPI - GI History of Present Illness Chief Complaint: Flank Pain Informant: patient Abdominal Pain/Flank Pain Onset: Weeks Context: Gradual Onset Timing: Intermittent Quality: Aching Location: Right Flank Current Severity: Moderate Maximum Severity: Moderate Worsened by: Nothing Relieved by: Nothing Nausea/Vomiting/Emesis GI Symptom: Positive for Nausea Onset: Days Severity: Mild Diarrhea/Melena/Hematochezia GI Symptom: Negative for Diarrhea, Melena or Hematochezia Associated Symptoms Associated Symptoms: Negative for Dysuria, Frequency, Hematuria or Urgency Narrative Narrative: 28-year-old female history of diabetes, multiple kidney stones with several needing to be surgically removed and prior ureteral stents and polycystic ovarian syndrome. Complaining right flank pain for weeks. She has a known kidney stone. She thinks it is moving. She uses Flomax this morning without relief. Has had nausea without vomiting. She did take Zofran at home. States she is not and her last menstrual period was about 2 weeks ago. She has been on Cipro recently for UTIs. Patient sees local urologist Dr. Lunsford. Prior similar symptoms: Yes Recent Illness/Hospitalization: No PFSH PFSH Medical History Wears glasses Marijuana use Alcohol use Arthritis Low iron Fatty liver High cholesterol Easy bruising Back pain Syncope Dietary restriction Heartburn Non-smoker Shortness of breath on exertion Leg cramps History of pain when walking History of edema History of echocardiogram Morbid obesity Diabetes mellitus, type 2 Asthma Migraines Bilateral ovarian cysts PCOS (polycystic ovarian syndrome) Anxiety and depression Home Medications ?Medication ?Instructions ?Recorded ?Last Taken ?Type albuterol sulfate 90 mcg/actuation 2 puff inhalation Q6H PRN Sob &/Or 05/08/18 Unknown History breath activated powder inhaler Wheezing ibuprofen 800 mg tablet 800 mg PO Q8H PRN PRN Pain Or Fever 02/26/20 Unknown History biotin 5,000 mcg disintegrating 10,000 mcg PO DAILY 08/25/23 Unknown History tablet dulaglutide 0.75 mg/0.5 mL 0.75 mg subcut FR 08/25/23 Unknown History subcutaneous pen injector (Trulicity) meloxicam 15 mg tablet 15 mg PO DAILY 08/25/23 Unknown History metformin 1,000 mg tablet 1,000 mg PO DAILY 08/25/23 Unknown History valacyclovir 500 mg tablet 500 mg PO DAILY herpies flair 08/25/23 Unknown History ondansetron 4 mg disintegrating 8 mg (2 x 4 mg) PO Q8H PRN PRN 08/26/23 Unknown Rx tablet Nausea #20 tabs cholecalciferol (vitamin D3) 1,250 50,000 unit PO FR 12/04/23 Unknown History mcg (50,000 unit) capsule cyclobenzaprine 10 mg tablet 10 mg PO TID PRN muscle spasm 12/04/23 Unknown History loratadine 10 mg tablet 10 mg PO Q24H 12/04/23 Unknown History pregabalin 75 mg capsule 75 mg PO TID 12/04/23 Unknown History atorvastatin 20 mg tablet 20 mg PO QHS 1 month #30 tabs 12/05/23 Unknown Rx lisinopril 20 mg tablet 20 mg PO DAILY #30 tabs 12/05/23 Unknown Rx losartan 100 1 tab PO DAILY 02/03/24 Unknown History mg-hydrochlorothiazide 12.5 mg tablet mecobalamin (vitamin B12) 1,000 1,000 mcg sublingual DAILY 02/03/24 Unknown History mcg disintegrating tablet,sublingual metformin 500 mg tablet 1,500 mg PO QPM 02/03/24 Unknown History phenazopyridine 200 mg tablet 200 mg PO TID PRN PRN Bladder 02/03/24 Unknown Rx (Pyridium) Spasms 7 days #30 tabs ciprofloxacin HCl 500 mg tablet 500 mg PO BID #14 TABLETS 03/08/24 Unknown Rx cyanocobalamin (vitamin B-12) 1,000 mcg PO DAILY 03/08/24 Unknown History 1,000 mcg tablet (Vitamin B-12) oxycodone-acetaminophen 5 mg-325 1 tab PO Q6H 3 days #12 tabs 03/08/24 Unknown Rx mg tablet (Percocet) cephalexin 500 mg capsule 500 mg PO Q6 10 days #40 CAPSULES 03/21/24 Unknown Rx hydrocodone-acetaminophen 5-325mg 1 tab PO Q4H PRN PRN Pain 4 days 03/21/24 Unknown Rx 5mg-325mg #16 TABLETS Allergy/AdvReac Type Severity Reaction Status Date / Time hydralazine AdvReac Mild Other Verified 03/21/24 16:16 Family History Mother Diabetes Kidney disease Surgical History Hx of cystoscopy History of cholecystectomy S/P laparoscopic procedure History of tonsillectomy corrective eye surgery History of ear, nose, and throat (ENT) surgery Social History household members: significant other Smoking Status: Never smoker alcohol intake: never substance use type: marijuana and other details: Edible cannabis OTC twice weekly. caffeine: No what type of physical activity do you participate in: walking seatbelt use: always do you feel safe at home: Yes additional social history: [employer] Patient is unemployed ROS ROS ED ROS Narrative Right flank pain. Nausea. Review of Systems ROS Unobtainable: Denies due to encephalopathy Constitutional Constitutional ED: Denies chills or fever(s) ENT ENT ED: Denies ear pain Cardiovascular Cardiovascular: Denies chest pain Respiratory/Chest Respiratory/Chest: Denies cough or dyspnea Gastrointestinal Gastrointestinal: Reports abdominal pain and nausea; Denies constipation, diarrhea, melena or vomiting Genitourinary Genitourinary ED: Denies dysuria or hematuria Musculoskeletal Musculoskeletal: Reports back pain; Denies arthralgias Integumentary Denies abscess or Abrasions Neurologic Neurologic: Denies headache(s) Psychiatric Psychiatric: Denies anxiety Endocrine Endocrinology: Denies polydipsia Hematologic/Lymphatic Hematologic/Lymphatic: Denies easy bleeding Allergic/Immunologic Allergic/Immunologic ED: Denies mouth swelling, tongue swelling, urticaria or other EXAM Physical Exam Narrative Exam Narrative: Well-appearing 28-year-old female. Sitting upright in bed. Vital signs are stable and afebrile. She is hypertensive at 155/113. She does not look septic or toxic. No distress. Friend at bedside. H EENT exam unremarkable. Neck nontender. Lungs clear. Heart regular rhythm no murmur rate about 110. Abdomen is soft and nontender. Normal bowel sounds no peritoneal signs. No reproducible pain in her abdomen. Moving all 4 extremities. Back patient is reproducible right flank pain. There is no ecchymosis or bruising. No signs of trauma. Neurologically she is awake alert no focal motor deficits. Const Vital Signs: 03/21/24 16:15 03/21/24 16:15 03/21/24 18:14 Temperature 97.8 F 96.8 F L Temperature Source Temporal Temporal Pulse Rate 128 H 129 H 105 H Respiratory Rate 16 16 18 Blood Pressure 155/113 H 155/113 H 137/80 H Blood Pressure Mean 127 127 99 Pulse Ox 97 96 98 Oxygen Delivery Method Room Air Room Air Room Air Positive well nourished, well developed and obese; Negative for cachectic, contractures or unkempt General Appearance ED: well developed and NAD; Negative for unkempt, cachectic, contractures or pallor Nutritional Appearance: obese; Negative for cachectic HEENT Reports moist mucous membranes normocephalic and atraumatic; Negative for trauma or tenderness Eyes EOMs intact bilaterally General Eye ED: Negative for pale conjunctiva or scleral icterus Neck no lymphadenopathy, supple and no JVD General: Negative for tenderness Lymph Lymphatic: Negative for other Resp normal respiratory effort and clear to auscultation bilaterally Effort and Inspection: Negative for respiratory distress Auscultation: Negative for rales, rhonchi, wheezes or diminished lung sounds Cardio regular rhythm, S1 normal heart sound, S2 normal heart sound and no murmurs; Negative for regular rate Rate: tachycardic Rhythm: Negative for abnormal rhythm GI non-tender, non-distended and no masses Inspection: Negative for abdominal distention Auscultation: normoactive bowel sounds Palpation: soft; Negative for tender, guarding or rebound tenderness present Back/Spine Negative for no CVA tenderness Back/Spine Narrative: Right flank tenderness. General Back: CVA tenderness Cervical Spine: Negative for cervical spine tenderness Thoracic Spine / Upper Back: Negative for thoracic spinal tenderness Lumbar Spine / Lower Back: Negative for lumbar spinal tenderness Extremity General Extremety ED: Negative for edema or tenderness General Extremity: Negative for edema Neuro CN's II-XII intact bilaterally and moves all extremities Sensorium / Orientation: alert, oriented to person, oriented to place and oriented to time; Negative for orientation impaired, confused or lethargic Motor Exam: strength 5/5 throughout Psych mental status grossly normal and thought process normal Appearance: Negative for unkempt Attitude: No agitated Mood & Affect: Negative for depressed, anxious or tearful Skin no wounds General Skin Exam: Negative for jaundice or pallor Lesions: no lesions Rashes: no rashes Trauma: Negative for abrasion Nails: Negative for discolored MDM MDM MDM Narrative Medical decision making narrative: 28-year-old female history of kidney stones right flank pain. Differential includes kidney stone versus UTI versus other. Labs being obtained. CAT scan. She will be treated with Zofran, Toradol and morphine. Repeat exam patient is doing well. She did receive Dilaudid for pain. CAT scan shows 2 right-sided kidney stones. She has follow-up scheduled with her urologist. She has had this chronic UTI. She will be placed on Keflex she has been on Cipro recently. Urine culture resent. She be discharged home with hydrocodone for pain. History & Record Review Discussion w/independent historian: Patient Additional record(s) reviewed:: Prior inpatient record, Prior outpatient record, Prior ED visit and Prior labs Lab Data Attestation: I reviewed the patient's lab results. Lab results narrative: CBC shows a white count of 15.5. H&H 11 and 35. Platelets 629. Electrolytes show sodium 130. Gap 5. BUN and creatinine are 19 and 1. Glucose 276. test negative. UA 10-25 white cells. No squamous cells. 1+ bacteria. No nitrites. CAT scan shows a right renal calculi is 7 mm and a right UPJ stone of 5 mm. W ith hydroureter and nephrosis. Labs: Laboratory Results - last 24 hr 03/21/24 03/21/24 16:35 17:30 WBC 15.5 H RBC 4.15 L Hgb 11.0 L Hct 35.6 L MCV 85.8 MCH 26.5 L MCHC 30.9 L RDW Std Deviation 47.3 H RDW Coeff of Servando 14.9 H Plt Count 629 H MPV 8.8 Immature Gran % (Auto) 0.800 Neut % (Auto) 76.5 H Lymph % (Auto) 15.7 L [place] % (Auto) 5.6 Eos % (Auto) 1.1 Baso % (Auto) 0.3 Absolute Neuts (auto) 11.8 H Absolute Lymphs (auto) 2.43 Nucleated RBC % 0 Sodium 130 L Potassium 4.4 Chloride 100 Carbon Dioxide 25.0 Anion Gap 5 BUN 19 H Creatinine 1.08 H Estim Creat Clear Calc 108.57 Est GFR (MDRD) Af Amer 77 Est GFR (MDRD) Non-Af 63 BUN/Creatinine Ratio 17.6 Glucose 276 H Calcium 9.9 Serum , Qual NEGATIVE Urine Color Yellow Urine Clarity Clear Urine pH 5.0 Ur Specific [place] 1.020 Urine Protein 100 H Urine Glucose (UA) Normal Urine Ketones Negative Urine Occult Blood 10 H Urine Nitrite Negative Urine Bilirubin Negative Urine Urobilinogen Normal Ur Leukocyte Esterase 100 H Urine RBC 0 SEEN Urine WBC 10-25 SEEN Ur Squamous Epith Cells 0 SEEN Urine Bacteria 1+ Hyaline Casts 0-5 SEEN Urine Mucus 0 SEEN Radiography Diagnostic Testing: Clinical Impression(s) from Imaging Studies Abdomen/Pelvis CT 03/21/24 16:27 IMPRESSION: Right renal calculi. Obstructive stone at the right UPJ with mild right hydronephrosis and perinephric stranding. Mild retroperitoneal adenopathy. Electronically Signed: Case Alvarez DO at 17:18 EDT Reading Location ID and State: [facility] / [place] Tel [phone], Service support , Discharge Plan Triage Chief Complaint: Flank Pain ED Provider: Luis Alberto Ryder Dx/Rx/DC Orders Clinical Impression: Kidney stone on right side, UTI (urinary tract infection), History of diabetes mellitus Instructions: Urinary Tract Infections in Women, ED Kidney Stone with Pain Prescriptions: New cephalexin 500 mg capsule 500 mg PO Q6 10 Days Qty: 40 0RF hydrocodone-acetaminophen 5-325 mg tablet 1 tab PO Q4H PRN PRN (Reason: Pain) 4 Days Qty: 16 0RF No Action albuterol sulfate 90 mcg/actuation aerosol powdr breath activated 2 puff INHALATION Q6H PRN (Reason: Sob &/Or Wheezing) ibuprofen 800 MG tablet 800 mg PO Q8H PRN PRN (Reason: Pain Or Fever) Rx Instructions: take with food meloxicam 15 mg tablet 15 mg PO DAILY Patient Comments: take 1 tablet by mouth once daily with food Trulicity 0.75 mg/0.5 mL pen injector 0.75 mg SUBCUT FR Patient Comments: inject 0.5 milliliters ( 0.75 milligrams ) subcutaneously ONCE A WEEK- mondays metformin 1,000 mg tablet 1,000 mg PO DAILY Patient Comments: take 1 tablet by mouth twice a day with meals valacyclovir 500 mg tablet 500 mg PO DAILY biotin 5,000 mcg tablet,disintegrating 10,000 mcg PO DAILY ondansetron 4 mg tablet,disintegrating 8 mg PO Q8H PRN PRN (Reason: Nausea) Qty: 20 0RF cyanocobalamin (vitamin B-12) [Vitamin B-12] 1,000 mcg tablet 1,000 mcg PO DAILY ciprofloxacin HCl 500 mg tablet 500 mg PO BID Qty: 14 0RF oxycodone-acetaminophen [Percocet] 5-325 mg tablet 1 tab PO Q6H 3 Days Qty: 12 0RF cholecalciferol (vitamin D3) 1,250 mcg (50,000 unit) capsule 50,000 unit PO FR Patient Comments: take 1 capsule by mouth every week loratadine 10 mg tablet 10 mg PO Q24H pregabalin 75 mg capsule 75 mg PO TID Patient Comments: has not started yet cyclobenzaprine 10 mg tablet 10 mg PO TID PRN (Reason: muscle spasm) lisinopril 20 mg tablet 20 mg PO DAILY Qty: 30 2RF atorvastatin 20 mg tablet 20 mg PO QHS 30 Days Qty: 30 2RF metformin 500 mg tablet 1,500 mg PO QPM mecobalamin (vitamin B12) 1,000 mcg tablet,disintegrating 1,000 mcg sublingual DAILY Rx Instructions: place tablet under tongue and allow to dissolve for at least30 secs before swallowing losartan-hydrochlorothiazide 100-12.5 mg tablet 1 tab PO DAILY phenazopyridine [Pyridium] 200 mg tablet 200 mg PO TID PRN PRN (Reason: Bladder Spasms) 7 Days Qty: 30 0RF Primary Care Provider: Xiang Ruiz Referrals: Sarah Lunsford MD [Med Staff - Active Staff] - As soon as possible Xiang Ruiz DO [Primary Care Provider] - As Needed Activity Restrictions/Additional Instructions: Plenty of fluids and rest. Hydrocodone and Motrin for pain. Call and follow-up with your urologist as soon as possible. Return if feeling worse. Make sure to take all the antibiotic. A urine culture was sent. Those results should be back in 2 days. If we need to change antibiotic we will notify you. Print Language: Indonesian Disposition Disposition: Home, Self Care
[2024-03-21] MEDS: Ondansetron 4 MG/2 ML Vial IV (16:33)
[2024-03-21] MEDS: Ketorolac 30 MG/ML Syringe IV (16:33)
[2024-03-21] MEDS: morphine 8 MG/ML Syringe 6 MG IV (16:34)
[2024-03-21 16:57] LABS: Absolute Lymphocyte Count 2.43 X10^3/uL (0.83-4.51); Absolute Neutrophil Count 11.8 X10^3/uL (2.0-7.7); Basophil# 0.04 X10^3/uL; Basophil% 0.3 % (0-1); Eosinophil# 0.17 X10^3/uL; Eosinophils% 1.1 % (0-5); Hematocrit 35.6 % (37-47); Lymphocyte # 2.43 X10^3/ul (0.83-4.51); Lymphocyte % 15.7 % (19-41); Mean Corp Hgb Conc 30.9 g/dL (32-36); Mean Corpuscular Hgb 26.5 pg (27.0-32.0); Mean Corpuscular Volume 85.8 fL (81-99); Mean Platelet Vol. 8.8 fl (6.2-12.0); Monocyte# 0.87 X10^3/uL; Monocyte% 5.6 % (0-10); NRBC Flagged by Analyzer 0 % (0-5); Neutrophil # 11.83 X10^3/uL (2.7-7.7); Neutrophil % 76.5 % (47-70); Platelet Count 629 K/mm3 (150-450); RBC Distribution Width CV 14.9 % (11.6-14.6); RBC Distribution Width SD 47.3 fl (35.1-43.9); Red Blood Count 4.15 M/mm3 (4.2-5.4); White Blood Count 15.5 K/mm3 (4.4-11.0)
[2024-03-21 17:12] LABS: Internal QC Validated? YES +Cl - CLEAR BKGD; Pregnancy, Serum, hCG Quali. NEGATIVE Negative
[2024-03-21 17:13] LABS: Anion Gap 5 (5-15); BUN 19 mg/dL (7-18); BUN/Creat Ratio 17.6 RATIO (10-20); Calcium,Total 9.9 mg/dL (8.5-10.1); Chloride 100 mmol/L (98-107); Creatinine, Serum 1.08 mg/dL (0.55-1.02); EST Glomerular Filtration Rate 63 mL/min (>60); Est Glom Filt Rate - Afr Amer 77 mL/min (>60); Estimated Creatinine Clearance 108.57 ml/min; Glucose 276 mg/dL (74-106); Potassium 4.4 mmol/L (3.5-5.1); Sodium Level 130 mmol/L (136-145)
[2024-03-21] MEDS: HYDROmorphone 1 MG/ML Syringe IV (17:33)
[2024-03-21 17:39] LABS: Mucous, Urine 0 SEEN /hpf (<or=2+); Red Blood Cells-Urine 0 SEEN /hpf (0-5); Squamous Epithelial Cells - UA 0 SEEN /hpf (5-10)
[2024-03-21 17:51] LABS: Color, Urine Yellow (Yellow); Glucose, Dipstick Normal (Normal); Ketone-Dipstick Negative (Negative); Leukocyte Esterase-Dipstick 100 /ul (Negative); Nitrite-Dipstick Negative (Negative); Occult Blood-Urine 10 /ul (Negative); Protein-Dipstick 100 mg/dl (Negative); Urine Bilirubin Dipstick Negative (Negative); Urine Clarity Clear (Clear); Urine Urobilinogen Normal (Normal)
[2024-03-21 18:08] LABS: White Blood Cells 10-25 SEEN /hpf (0-5)
[2024-03-21 18:09] LABS: Bacteria 1+ /hpf (None Seen); Hyaline Cast 0-5 SEEN /lpf (0-5)
[2024-03-21 18:14] VITALS: BP 137/80; PULSE 105; RESP 18; TEMP 36; O2SAT 98
[2024-03-21] MEDS: HYDROmorphone 0.5 MG/0.5 ML SYRINGE IV (19:47)
== END 2024-03-21 19:52 | disposition home or self-care (01) ==
PROVIDERS: Emergency Provider Emergency Medicine; PCP Student in an Organized Health Care Education/Training Program; Visit Provider Emergency Medicine
DX: N13.2 Hydronephrosis with renal and ureteral calculous obstruction (principal); E11.9 Type 2 diabetes mellitus without complications; N39.0 Urinary tract infection, site not specified; E78.00 Pure hypercholesterolemia, unspecified; Z79.85 Long-term (current) use of injectable non-insulin antidiabetic drugs; Z79.84 Long term (current) use of oral hypoglycemic drugs; Z79.899 Other long term (current) drug therapy; Z90.49 Acquired absence of other specified parts of digestive tract
CPT/HCPCS: 74176; 80048; 81001; 84703; 85025; 87086; 87088; 96374; 96375; 96376; 99283; J7030; A4216; J2405

== ENCOUNTER 2024-03-29 18:27 | Emergency (ER) | payer MEDICAID, SELFPAY ==
[2024-03-29 18:28] VITALS: BP 161/116; PULSE 134; RESP 22; TEMP 36.8; O2SAT 95; BMI 57.4
--- NOTE | 2024-03-29 18:42 | EX.ED.DYSGE1 ---
HPI History of Present Illness Chief Complaint: Flank Pain Informant: patient Onset/Context/Timing Onset: Today Context: Gradual Onset Timing: Continuous Quality: Aching like someone is punching me in my kidney Location: Right flank Worsened by: Movement Relieved by: Dilaudid Narrative Narrative: Patient presents with right flank pain that became worse today. Patient states she was recently diagnosed with kidney stones on the right. Patient states she was seen here 8 days ago and had a CT scan which showed a stone in her right UPJ with hydronephrosis. Patient states her pain became worse today. Patient states the oxycodone that was prescribed for her was not helping. Patient describes her pain as aching. Patient states it is localized to the right flank. Patient states it is worse with movement. Patient states that in the past Dilaudid has been the only medication that has helped. Patient denies any fevers or chills. Patient admits to some nausea but denies any vomiting. Patient noticed some blood in her urine today. Patient states her pain radiates into her low back. [facility] Medical History Wears glasses Marijuana use Alcohol use Arthritis Low iron Fatty liver High cholesterol Easy bruising Back pain Syncope Dietary restriction Heartburn Non-smoker Shortness of breath on exertion Leg cramps History of pain when walking History of edema History of echocardiogram Morbid obesity Diabetes mellitus, type 2 Asthma Migraines Bilateral ovarian cysts PCOS (polycystic ovarian syndrome) Anxiety and depression Home Medications ?Medication ?Instructions ?Recorded ?Last Taken ?Type albuterol sulfate 90 mcg/actuation 2 puff inhalation Q6H PRN Sob &/Or 05/08/18 Unknown History breath activated powder inhaler Wheezing ibuprofen 800 mg tablet 800 mg PO Q8H PRN PRN Pain Or Fever 02/26/20 Unknown History biotin 5,000 mcg disintegrating 10,000 mcg PO DAILY 08/25/23 Unknown History tablet dulaglutide 0.75 mg/0.5 mL 0.75 mg subcut FR 08/25/23 Unknown History subcutaneous pen injector (Trulicity) meloxicam 15 mg tablet 15 mg PO DAILY 08/25/23 Unknown History metformin 1,000 mg tablet 1,000 mg PO DAILY 08/25/23 Unknown History valacyclovir 500 mg tablet 500 mg PO DAILY herpies flair 11/26/23 Unknown History ondansetron 4 mg disintegrating 8 mg (2 x 4 mg) PO Q8H PRN PRN 08/26/23 Unknown Rx tablet Nausea #20 tabs cholecalciferol (vitamin D3) 1,250 50,000 unit PO FR 12/04/23 Unknown History mcg (50,000 unit) capsule cyclobenzaprine 10 mg tablet 10 mg PO TID PRN muscle spasm 12/04/23 Unknown History loratadine 10 mg tablet 10 mg PO Q24H 12/04/23 Unknown History pregabalin 75 mg capsule 75 mg PO TID 12/04/23 Unknown History atorvastatin 20 mg tablet 20 mg PO QHS 1 month #30 tabs 12/05/23 Unknown Rx lisinopril 20 mg tablet 20 mg PO DAILY #30 tabs 12/05/23 Unknown Rx losartan 100 1 tab PO DAILY 02/03/24 Unknown History mg-hydrochlorothiazide 12.5 mg tablet mecobalamin (vitamin B12) 1,000 1,000 mcg sublingual DAILY 02/03/24 Unknown History mcg disintegrating tablet,sublingual metformin 500 mg tablet 1,500 mg PO QPM 02/03/24 Unknown History phenazopyridine 200 mg tablet 200 mg PO TID PRN PRN Bladder 02/03/24 Unknown Rx (Pyridium) Spasms 7 days #30 tabs ciprofloxacin HCl 500 mg tablet 500 mg PO BID #14 TABLETS 03/08/24 Unknown Rx cyanocobalamin (vitamin B-12) 1,000 mcg PO DAILY 03/08/24 Unknown History 1,000 mcg tablet (Vitamin B-12) oxycodone-acetaminophen 5 mg-325 1 tab PO Q6H 3 days #12 tabs 03/08/24 Unknown Rx mg tablet (Percocet) cephalexin 500 mg capsule 500 mg PO Q6 10 days #40 CAPSULES 03/21/24 Unknown Rx hydrocodone-acetaminophen 5-325mg 1 tab PO Q4H PRN PRN Pain 4 days 03/21/24 Unknown Rx 5mg-325mg #16 TABLETS ciprofloxacin HCl 500 mg tablet 500 mg PO BID #14 TABLETS 03/29/24 Unknown Rx oxycodone-acetaminophen 5 mg-325 1 tab PO Q6H PRN PRN Pain 3 days 03/29/24 Unknown Rx mg tablet #12 TABLETS Allergy/AdvReac Type Severity Reaction Status Date / Time hydralazine AdvReac Mild Other Verified 03/29/24 18:30 Family History Mother Diabetes Kidney disease Surgical History Hx of cystoscopy History of cholecystectomy S/P laparoscopic procedure History of tonsillectomy corrective eye surgery History of ear, nose, and throat (ENT) surgery Social History household members: significant other Smoking Status: Never smoker alcohol intake: never substance use type: marijuana and other details: Edible cannabis OTC twice weekly. caffeine: No what type of physical activity do you participate in: walking seatbelt use: always do you feel safe at home: Yes additional social history: [employer] Patient is unemployed ROS ROS ED Constitutional Constitutional ED: Denies chills or fever(s) Eyes Eyes: Reports blurry vision; Denies diplopia ENT ENT ED: Denies rhinorrhea or sore throat Cardiovascular Cardiovascular: Denies chest pain or palpitations Respiratory/Chest Respiratory/Chest: Denies cough or dyspnea Gastrointestinal Gastrointestinal: Reports nausea; Denies vomiting Genitourinary Genitourinary ED: Reports hematuria; Denies dysuria Musculoskeletal Musculoskeletal: Reports back pain; Denies neck pain Integumentary Denies abscess or rash Neurologic Neurologic: Denies headache(s) or weakness Allergic/Immunologic Allergic/Immunologic ED: Denies mouth swelling or urticaria EXAM Physical Exam Const Vital Signs: 03/29/24 18:28 03/29/24 20:27 03/29/24 22:00 Temperature 98.3 F Temperature Source Temporal Pulse Rate 134 H 88 81 Respiratory Rate 22 H 16 16 Blood Pressure 161/116 H 146/101 H 158/101 H Blood Pressure Mean 131 116 120 Pulse Ox 95 98 97 Oxygen Delivery Method Room Air Room Air Room Air Positive well nourished, well developed and obese General Appearance ED: well developed and NAD Nutritional Appearance: obese HEENT Reports moist mucous membranes Neck supple and no JVD Resp normal respiratory effort and clear to auscultation bilaterally Cardio regular rate and regular rhythm GI non-distended Palpation: soft and tender RLQ and RUQ Back/Spine General Back: CVA tenderness right Neuro oriented x3, CN's II-XII intact bilaterally and no sensory deficits noted Sensorium / Orientation: alert Motor Exam: strength 5/5 throughout MDM MDM MDM Narrative Medical decision making narrative: Differential diagnosis includes calculus, hydronephrosis, pyelonephritis, and appendicitis. CBC will be obtained to assess for leukocytosis and anemia. Basic metabolic profile will be obtained to assess for electrolyte abnormality and renal function. Urinalysis will be obtained to assess for urinary tract infection and hematuria. Serum hCG will be obtained to assess for . Lab Data Attestation: I reviewed the patient's lab results. Lab results narrative: CBC was reviewed. There is a mild leukocytosis of 15.6. This is unchanged compared to previous results. Hemoglobin was slightly low at 11.3 and hematocrit is 36.3. These are also unchanged from previous results. Platelets are slightly elevated at 539. These are also consistent with previous results. Basic metabolic profile was reviewed. Sodium was slightly low at 133 and creatinine was slightly elevated at 1.09. Glucose was mildly elevated at 298. Serum hCG was reviewed and was negative. Urinalysis was reviewed. Leukocyte esterase was 100 with 10-25 white blood cells and rare bacteria. Urine culture was ordered. Labs: Laboratory Results - last 24 hr 03/29/24 03/29/24 19:07 19:55 WBC 15.6 H RBC 4.26 Hgb 11.3 L Hct 36.3 L MCV 85.2 MCH 26.5 L MCHC 31.1 L RDW Std Deviation 46.3 H RDW Coeff of Servando 15.0 H Plt Count 539 H MPV 9.4 Immature Gran % (Auto) 0.500 Neut % (Auto) 77.0 H Lymph % (Auto) 14.6 L Harvey % (Auto) 6.4 Eos % (Auto) 1.0 Baso % (Auto) 0.5 Absolute Neuts (auto) 12.0 H Absolute Lymphs (auto) 2.28 Nucleated RBC % 0 Sodium 133 L Potassium 4.3 Chloride 101 Carbon Dioxide 25.0 Anion Gap 7 BUN 17 Creatinine 1.09 H Estim Creat Clear Calc 107.49 Est GFR (MDRD) Af Amer 76 Est GFR (MDRD) Non-Af 63 BUN/Creatinine Ratio 15.6 Glucose 298 H Calcium 9.5 Serum , Qual NEGATIVE Urine Color Yellow Urine Clarity Clear Urine pH 6.0 Ur Specific [place] 1.015 Urine Protein 100 H Urine Glucose (UA) 1000 H Urine Ketones Negative Urine Occult Blood 10 H Urine Nitrite Negative Urine Bilirubin Negative Urine Urobilinogen Normal Ur Leukocyte Esterase 100 H Urine RBC 0 SEEN Urine WBC 10-25 SEEN Ur Squamous Epith Cells 0-5 SEEN Urine Bacteria RARE Urine Mucus 0 SEEN Radiography Diagnostic Testing: Clinical Impression(s) from Imaging Studies Abdomen/Pelvis CT 03/29/24 18:50 IMPRESSION: There is persistent right-sided hydronephrosis and proximal hydroureter with perinephric and periureteral inflammatory stranding. Findings due to a 5 mm stone at the right UPJ unchanged from the previous study. Stable nonobstructing right renal stones Hepatomegaly with fatty infiltration of the liver, no discrete lesion No significant interval change since the previous study. Electronically Signed: Asif Ramsey MD at 19:50 EDT , CT scan of the abdomen pelvis was obtained. There is a persistent right sided hydronephrosis and proximal hydroureter with perinephric and periureteral inflammatory stranding. There is a 5 mm stone at the right UPJ which is unchanged from previous study. There are stable nonobstructing right renal stones. There is fatty infiltration of the liver. There is no other acute abnormality noted. This was interpreted by the radiologist and was also dependently reviewed by myself. Additional Tests and Interventions Additional Tests or Interventions: Urine culture was ordered. Treatment and Re-Evaluation :: Patient was given IV fluids, Zofran, and Dilaudid. Patient was given a repeat dose of Dilaudid. Patient was given a dose of Rocephin. Patient is resting comfortably on reevaluation. Patient states her pain is starting to return. Patient was advised of her findings. Patient states she would prefer to go home. I attempted to contact her urologist, Dr. Lunsford. However, she was unavailable. I offered transferring the patient to a different hospital for urology consult. Patient states she would prefer to go home and call Dr. Lunsford's office tomorrow to try to arrange follow-up appointment. Patient was given prescription for Cipro and Percocet. Patient was instructed to drink plenty of fluids. Patient was instructed to return if worse in any way. Patient understood and was agreeable with plan. All questions were answered. Discharge Plan Triage Chief Complaint: Flank Pain ED Provider: Stuart Green Dx/Rx/DC Orders Clinical Impression: Calculus of proximal right ureter, Urinary tract infection Instructions: ED Pyelonephritis, Female (Adult), ED Kidney Stone with Pain Prescriptions: New ciprofloxacin HCl 500 mg tablet 500 mg PO BID Qty: 14 0RF oxycodone-acetaminophen 5-325 mg tablet 1 tab PO Q6H PRN PRN (Reason: Pain) 3 Days Qty: 12 0RF No Action albuterol sulfate 90 mcg/actuation aerosol powdr breath activated 2 puff INHALATION Q6H PRN (Reason: Sob &/Or Wheezing) ibuprofen 800 MG tablet 800 mg PO Q8H PRN PRN (Reason: Pain Or Fever) Rx Instructions: take with food meloxicam 15 mg tablet 15 mg PO DAILY Patient Comments: take 1 tablet by mouth once daily with food Trulicity 0.75 mg/0.5 mL pen injector 0.75 mg SUBCUT FR Patient Comments: inject 0.5 milliliters ( 0.75 milligrams ) subcutaneously ONCE A WEEK- mondays metformin 1,000 mg tablet 1,000 mg PO DAILY Patient Comments: take 1 tablet by mouth twice a day with meals valacyclovir 500 mg tablet 500 mg PO DAILY biotin 5,000 mcg tablet,disintegrating 10,000 mcg PO DAILY ondansetron 4 mg tablet,disintegrating 8 mg PO Q8H PRN PRN (Reason: Nausea) Qty: 20 0RF cyanocobalamin (vitamin B-12) [Vitamin B-12] 1,000 mcg tablet 1,000 mcg PO DAILY ciprofloxacin HCl 500 mg tablet 500 mg PO BID Qty: 14 0RF oxycodone-acetaminophen [Percocet] 5-325 mg tablet 1 tab PO Q6H 3 Days Qty: 12 0RF cephalexin 500 mg capsule 500 mg PO Q6 10 Days Qty: 40 0RF hydrocodone-acetaminophen 5-325 mg tablet 1 tab PO Q4H PRN PRN (Reason: Pain) 4 Days Qty: 16 0RF cholecalciferol (vitamin D3) 1,250 mcg (50,000 unit) capsule 50,000 unit PO FR Patient Comments: take 1 capsule by mouth every week loratadine 10 mg tablet 10 mg PO Q24H pregabalin 75 mg capsule 75 mg PO TID Patient Comments: has not started yet cyclobenzaprine 10 mg tablet 10 mg PO TID PRN (Reason: muscle spasm) lisinopril 20 mg tablet 20 mg PO DAILY Qty: 30 2RF atorvastatin 20 mg tablet 20 mg PO QHS 30 Days Qty: 30 2RF metformin 500 mg tablet 1,500 mg PO QPM mecobalamin (vitamin B12) 1,000 mcg tablet,disintegrating 1,000 mcg sublingual DAILY Rx Instructions: place tablet under tongue and allow to dissolve for at least30 secs before swallowing losartan-hydrochlorothiazide 100-12.5 mg tablet 1 tab PO DAILY phenazopyridine [Pyridium] 200 mg tablet 200 mg PO TID PRN PRN (Reason: Bladder Spasms) 7 Days Qty: 30 0RF Primary Care Provider: Xiang Ruiz Referrals: Sarah Lunsford MD [Med Staff - Active Staff] - As soon as possible (Call tomorrow morning to schedule an appointment) Xiang Ruiz DO [Primary Care Provider] - 5-7 Days Print Language: Indonesian Disposition Disposition: Home, Self Care
--- NOTE | 2024-03-29 18:50 | CT_ITS ---
STUDY: CT ABDOMEN AND PELVIS WITHOUT CONTRAST REASON FOR EXAM: Female, 28 years old. Right flank pain RADIATION DOSAGE (If Supplied By Facility): CTDIvol = ( 24.18 ) mGy, DLP = ( 1292.70 ) mGycm TECHNIQUE: Transaxial images were obtained from the dome of the diaphragm to the symphysis pubis without oral contrast, and without intravenous contrast. Sagittal and coronal images were reconstructed. Individualized dose optimization techniques were used for this CT. COMPARISON: 03/21/2024 FINDINGS: The visualized lung bases are unremarkable. The visualized portions of the heart are within normal limits. Liver is enlarged with fatty infiltration, no discrete lesion. There are surgical clips in the gallbladder fossa consistent with a prior cholecystectomy. Normal spleen. Normal pancreas. Normal bilateral adrenal glands. Normal-appearing left kidney. Right kidney shows enlargement with hydronephrosis and hydroureter with multiple nonobstructing stones. As with the previous study, there is a persistent 5 mm calcification in the right UPJ seen best on coronal recon image 81. There is perinephric and periureteral inflammatory stranding. The right ureter distal to the obstructing stone is of normal course and caliber. Normal visualized stomach. Normal small intestine. Normal colon. There is non-visualization of the appendix. Normal abdominal aorta. Normal inferior vena cava. Scattered subcentimeter in short axis dimension mesenteric and retroperitoneal lymph nodes. Normal urinary bladder. IUD noted within the uterus. No suspicious adnexal mass or free fluid. Normal abdominal wall. Normal osseous structures. CT/Abdomen/Pelvis without Cont IMPRESSION: There is persistent right-sided hydronephrosis and proximal hydroureter with perinephric and periureteral inflammatory stranding. Findings due to a 5 mm stone at the right UPJ unchanged from the previous study. Stable nonobstructing right renal stones Hepatomegaly with fatty infiltration of the liver, no discrete lesion No significant interval change since the previous study. Electronically Signed: Asif Ramsey MD at 19:50 EDT ,
[2024-03-29] MEDS: 0.9% Normal Saline (1000mL) 1,000 ML 1000 ML IV (19:01)
[2024-03-29] MEDS: HYDROmorphone 1 MG/ML Syringe 0.5 MG IV ×3 (19:02→23:19)
[2024-03-29] MEDS: Ondansetron 4 MG/2 ML Vial IV (19:02)
[2024-03-29 19:17] LABS: Absolute Lymphocyte Count 2.28 X10^3/uL (0.83-4.51); Basophil# 0.08 X10^3/uL; Basophil% 0.5 % (0-1); Eosinophil# 0.15 X10^3/uL; Hematocrit 36.3 % (37-47); Hemoglobin 11.3 g/dL (12.0-15.0); Lymphocyte # 2.28 X10^3/ul (0.83-4.51); Lymphocyte % 14.6 % (19-41); Mean Corp Hgb Conc 31.1 g/dL (32-36); Mean Corpuscular Hgb 26.5 pg (27.0-32.0); Mean Corpuscular Volume 85.2 fL (81-99); Mean Platelet Vol. 9.4 fl (6.2-12.0); Monocyte% 6.4 % (0-10); NRBC Flagged by Analyzer 0 % (0-5); Neutrophil # 12.04 X10^3/uL (2.7-7.7); Platelet Count 539 K/mm3 (150-450); RBC Distribution Width SD 46.3 fl (35.1-43.9); Red Blood Count 4.26 M/mm3 (4.2-5.4); White Blood Count 15.6 K/mm3 (4.4-11.0)
[2024-03-29 19:30] LABS: Internal QC Validated? YES +Cl - CLEAR BKGD; Pregnancy, Serum, hCG Quali. NEGATIVE Negative
[2024-03-29 19:32] LABS: Anion Gap 7 (5-15); BUN 17 mg/dL (7-18); BUN/Creat Ratio 15.6 RATIO (10-20); Calcium,Total 9.5 mg/dL (8.5-10.1); Chloride 101 mmol/L (98-107); Creatinine, Serum 1.09 mg/dL (0.55-1.02); EST Glomerular Filtration Rate 63 mL/min (>60); Est Glom Filt Rate - Afr Amer 76 mL/min (>60); Estimated Creatinine Clearance 107.49 ml/min; Glucose 298 mg/dL (74-106); Potassium 4.3 mmol/L (3.5-5.1); Sodium Level 133 mmol/L (136-145)
[2024-03-29 19:58] LABS: Mucous, Urine 0 SEEN /hpf (<or=2+); Red Blood Cells-Urine 0 SEEN /hpf (0-5)
[2024-03-29 19:59] LABS: Color, Urine Yellow (Yellow); Glucose, Dipstick 1000 mg/dl (Normal); Ketone-Dipstick Negative (Negative); Leukocyte Esterase-Dipstick 100 /ul (Negative); Nitrite-Dipstick Negative (Negative); Occult Blood-Urine 10 /ul (Negative); Protein-Dipstick 100 mg/dl (Negative); Specific Gravity, Urine 1.015 (1.002-1.030); Urine Bilirubin Dipstick Negative (Negative); Urine Clarity Clear (Clear); Urine Urobilinogen Normal (Normal)
[2024-03-29 20:15] LABS: White Blood Cells 10-25 SEEN /hpf (0-5)
[2024-03-29 20:16] LABS: Bacteria RARE /hpf (None Seen); Squamous Epithelial Cells - UA 0-5 SEEN /hpf (5-10)
[2024-03-29 20:27] VITALS: BP 146/101; PULSE 88; RESP 16; O2SAT 98
[2024-03-29] MEDS: Ceftriaxone 1 GM/50 ML BAG IV (20:38)
[2024-03-29 22:00] VITALS: BP 158/101; PULSE 81; RESP 16; O2SAT 97
[2024-03-29 23:15] VITALS: BP 149/106; PULSE 110; RESP 18; TEMP 37.2; O2SAT 100
== END 2024-03-29 23:36 | disposition home or self-care (01) ==
PROVIDERS: Emergency Provider Emergency Medicine; PCP Student in an Organized Health Care Education/Training Program; Visit Provider Emergency Medicine
DX: N13.2 Hydronephrosis with renal and ureteral calculous obstruction (principal); E11.9 Type 2 diabetes mellitus without complications; E78.00 Pure hypercholesterolemia, unspecified; R11.0 Nausea; Z79.85 Long-term (current) use of injectable non-insulin antidiabetic drugs; Z79.899 Other long term (current) drug therapy; Z90.49 Acquired absence of other specified parts of digestive tract; N39.0 Urinary tract infection, site not specified
CPT/HCPCS: 74176; 80048; 81001; 84703; 85025; 87077; 87086; 87088; 87186; 96361; 96365; 96366; 96375; 96376; 99283; J7030; A4216; J2405

== ENCOUNTER 2024-04-23 08:45 | Emergency (ER) | payer MEDICAID, SELFPAY ==
[2024-04-23 08:46] VITALS: BP 179/104; PULSE 115; RESP 18; TEMP 36.6; O2SAT 95; BMI 61.1
[2024-04-23 09:18] LABS: Color, Urine Yellow (Yellow); Glucose, Dipstick Normal (Normal); Ketone-Dipstick Negative (Negative); Leukocyte Esterase-Dipstick 25 /ul (Negative); Nitrite-Dipstick Negative (Negative); Occult Blood-Urine 25 /ul (Negative); Protein-Dipstick 500 mg/dl (Negative); Specific Gravity, Urine 1.025 (1.002-1.030); Urine Bilirubin Dipstick Negative (Negative); Urine Clarity Sl. Cloudy (Clear); Urine Urobilinogen Normal (Normal)
[2024-04-23 09:24] LABS: Bacteria 1+ /hpf (None Seen); Internal QC Validated? YES +Cl - CLEAR BKGD; Mucous, Urine 1+ /hpf (<or=2+); Pregnancy, Urine Negative Negative; Red Blood Cells-Urine 0-5 SEEN /hpf (0-5); Squamous Epithelial Cells - UA 5-10 SEEN /hpf (5-10); White Blood Cells 5-10 SEEN /hpf (0-5)
--- NOTE | 2024-04-23 09:54 | CT_ITS ---
STUDY: CT ABDOMEN AND PELVIS WITHOUT CONTRAST REASON FOR EXAM: Female, 28 years old. Right flank pain RADIATION DOSAGE (If Supplied By Facility): CTDIvol = ( 24.18 ) mGy, DLP = ( 1347.10 ) mGycm TECHNIQUE: Transaxial images were obtained from the dome of the diaphragm to the symphysis pubis without oral contrast, and without intravenous contrast. Sagittal and coronal images were reconstructed. Individualized dose optimization techniques were used for this CT. COMPARISON: Comparison is made with prior study dated March 29, 2024. FINDINGS: The visualized lung bases are unremarkable. The visualized portions of the heart are within normal limits. There is decreased attenuation of the liver consistent with steatosis. Mild hepatomegaly. There are surgical clips in the gallbladder fossa consistent with a prior cholecystectomy. Normal spleen. Normal pancreas. Normal bilateral adrenal glands. There is engorgement of the right kidney. Diffuse enlargement of the right kidney with a marked degree of right perinephric stranding. Persistent 5 mm calculus in the right ureteropelvic junction. There is also evidence of periureteral stranding. Stable 6.5 mm nonobstructive calculus in the lower pole calyx of the right kidney. Normal left kidney. Normal visualized stomach. Normal small intestine. Normal colon. The appendix is visualized and appears normal. Normal abdominal aorta. Normal inferior vena cava. Normal retroperitoneum. Normal urinary bladder. IUD is seen within the uterus. Normal abdominal wall. Normal osseous structures. CT/Abdomen/Pelvis without Cont IMPRESSION: There is diffuse enlargement and engorgement of the right kidney with the perinephric and periureteric stranding due to a 5 mm calculus at the right ureteropelvic junction. Stable 6.5 mm calculus in the lower pole calyx of the right kidney. Electronically Signed: Rosalio Schwab MD at 10:30 EDT ,
--- NOTE | 2024-04-23 09:59 | EX.ED.DYSGE1 ---
HPI History of Present Illness Chief Complaint: Flank Pain Informant: patient Narrative Narrative: 28-year-old female history of hypertension recurrent urolithiasis and UTIs (patient of Dr. Lunsford) presented to the emergency room with right flank and abdominal pain. Patient states that this morning she notes pain from the lower abdomen to her flank. She notes that her blood pressure was significantly elevated. She had surgery for kidney stones in the late winter early spring. She was seen in February with proximal ureteral stone and states that she has 2 known stones that I am working on. We can only take the blood pressure on the forearm with an adult XL cough. [facility] Medical History Wears glasses Marijuana use Alcohol use Arthritis Low iron Fatty liver High cholesterol Easy bruising Back pain Syncope Dietary restriction Heartburn Non-smoker Shortness of breath on exertion Leg cramps History of pain when walking History of edema History of echocardiogram Morbid obesity Diabetes mellitus, type 2 Asthma Migraines Bilateral ovarian cysts PCOS (polycystic ovarian syndrome) Anxiety and depression Home Medications ?Medication ?Instructions ?Recorded ?Last Taken ?Type albuterol sulfate 90 mcg/actuation 2 puff inhalation Q6H PRN Sob &/Or 05/08/18 Unknown History breath activated powder inhaler Wheezing ibuprofen 800 mg tablet 800 mg PO Q8H PRN Pain Or Fever 02/26/20 Unknown History biotin 5,000 mcg disintegrating 5,000 mcg PO DAILY 08/25/23 04/23/24 History tablet meloxicam 15 mg tablet 15 mg PO DAILY 08/25/23 04/23/24 History metformin 1,000 mg tablet 2,000 mg PO DAILY 08/25/23 04/23/24 History cholecalciferol (vitamin D3) 1,250 50,000 unit PO FR 12/04/23 04/17/24 History mcg (50,000 unit) capsule cyclobenzaprine 10 mg tablet 10 mg PO TID PRN muscle spasm 12/04/23 04/23/24 History loratadine 10 mg tablet 10 mg PO Q24H 12/04/23 04/23/24 History pregabalin 75 mg capsule 75 mg PO TID 12/04/23 04/23/24 History atorvastatin 20 mg tablet 20 mg PO QHS 1 month #30 tabs 12/05/23 04/22/24 Rx lisinopril 20 mg tablet 20 mg PO DAILY #30 tabs 12/05/23 Unknown Rx losartan 100 1 tab PO DAILY 02/03/24 04/23/24 History mg-hydrochlorothiazide 12.5 mg tablet metformin 500 mg tablet 500 mg PO QPM 02/03/24 04/22/24 History cyanocobalamin (vitamin B-12) 1,000 mcg PO DAILY 03/08/24 Unknown History 1,000 mcg tablet (Vitamin B-12) clindamycin phosphate 1 % lotion 1 applic topical DAILY 04/23/24 Unknown History liraglutide 0.6 mg/0.1 mL (18 mg/3 0.6 mg subcut 04/23/24 Unknown History mL) subcutaneous pen injector (Metatomixtoza 3-Festus) minoxidil 2.5 mg tablet 2.5 mg PO DAILY 04/23/24 Unknown History ondansetron 4 mg disintegrating 4 mg PO Q8H PRN Nausea 04/23/24 Unknown History tablet oxycodone-acetaminophen 5 mg-325 1 tab PO Q6H PRN pain 3 days #12 04/23/24 Unknown Rx mg tablet (Percocet) tabs valacyclovir 500 mg tablet 500 mg PO DAILY 04/23/24 04/23/24 History Allergy/AdvReac Type Severity Reaction Status Date / Time hydralazine AdvReac Mild Other Verified 04/23/24 08:53 Family History Mother Diabetes Kidney disease Surgical History Hx of cystoscopy History of cholecystectomy S/P laparoscopic procedure History of tonsillectomy corrective eye surgery History of ear, nose, and throat (ENT) surgery Social History household members: significant other Smoking Status: Never smoker alcohol intake: never substance use type: marijuana and other details: Edible cannabis OTC twice weekly. caffeine: No what type of physical activity do you participate in: walking seatbelt use: always do you feel safe at home: Yes additional social history: [place]- [employer] Patient is unemployed ROS ROS ED Constitutional Constitutional ED: Denies chills, fever(s) or weight loss Eyes Eyes: Denies change in vision or diplopia ENT ENT ED: Denies ear pain, rhinorrhea or sore throat Cardiovascular Cardiovascular: Denies chest pain, orthopnea, palpitations or racing heartbeat Respiratory/Chest Respiratory/Chest: Denies cough, dyspnea or orthopnea Gastrointestinal Gastrointestinal: Reports abdominal pain and nausea; Denies diarrhea or vomiting Genitourinary Genitourinary ED: Reports urinary frequency; Denies dysuria or hematuria Musculoskeletal Musculoskeletal: Reports back pain; Denies arthralgias or myalgias Integumentary Denies abscess or rash Neurologic Neurologic: Denies headache(s) or weakness Psychiatric Psychiatric: Denies anxiety, depression, suicidal ideation or suicidal thoughts Endocrine Endocrinology: Denies polydipsia, polyphagia or polyuria Allergic/Immunologic Allergic/Immunologic ED: Denies mouth swelling, tongue swelling or urticaria EXAM Physical Exam Const Vital Signs: 04/23/24 08:46 04/23/24 10:18 04/23/24 10:20 Temperature 97.9 F Temperature Source Temporal Pulse Rate 115 H 92 118 H Respiratory Rate 18 18 18 Blood Pressure 179/104 H 170/114 H 165/83 H Blood Pressure Mean 129 132 110 Pulse Ox 95 96 96 Oxygen Delivery Method Room Air Room Air 04/23/24 12:00 Temperature Temperature Source Pulse Rate 121 H Respiratory Rate 18 Blood Pressure 148/102 H Blood Pressure Mean 117 Pulse Ox 97 Oxygen Delivery Method Room Air Positive well nourished, well developed and obese General Appearance ED: well developed Nutritional Appearance: obese HEENT Reports normocephalic, head/scalp atraumatic and moist mucous membranes Eyes PERRL and EOMs intact bilaterally Neck no lymphadenopathy, supple and no JVD Resp normal respiratory effort and clear to auscultation bilaterally Cardio regular rate, regular rhythm and no murmurs GI normal to inspection, nondistended, normoactive bowel sounds and non-tender Palpation: soft Back/Spine no CVA tenderness and normal ROM Extremity normal to inspection General Extremety ED: Negative for edema General Extremity: Negative for edema Neuro oriented x3 and CN's II-XII intact bilaterally Sensorium / Orientation: alert Motor Exam: strength 5/5 throughout Psych mental status grossly normal Mood & Affect: Negative for depressed or tearful Skin no rashes or lesions noted and no wounds MDM MDM MDM Narrative Medical decision making narrative: Differential diagnosis includes but not limited to UTI ureterolithiasis renal failure/acute kidney injury hydronephrosis colitis appendicitis bowel obstruction shingles White count 13.9 hemoglobin 11.6 platelet count of 470. Creatinine 0.90 sodium 134 glucose 208. Urinalysis with 5-10 squamous cells 5-10 white cells 1+ bacteria negative nitrates. test negative. CT abdomen pelvis demonstrates a persistent UPJ stone at 5 mm on the right. Patient received Dilaudid then Toradol and oxycodone. I discussed the case with Dr. Lunsford. Patient is to follow-up in the office to discuss further treatment. Dr. Lunsford has requested a urine culture and pain medication as an outpatient which I am happy to write. Patient's blood pressure has come down. It is not in a red zone and would recommend continue monitoring and if it stays persistently elevated she will need to speak with her family doctor about alterations in her medications.. Reportedly after the accident reviewed during which time the patient said minimal things it was reported to me by nursing that the patient referred to me with a derogatory lower GI anatomical reference. History & Record Review Discussion w/independent historian: Patient Additional record(s) reviewed:: Prior ED visit and Prior labs Lab Data Attestation: I reviewed the patient's lab results. Labs: Laboratory Results - last 24 hr 04/23/24 04/23/24 09:00 10:15 WBC 13.9 H RBC 4.45 Hgb 11.6 L Hct 36.8 L MCV 82.7 MCH 26.1 L MCHC 31.5 L RDW Std Deviation 46.7 H RDW Coeff of Servando 15.7 H Plt Count 470 H MPV 9.2 Immature Gran % (Auto) 0.600 Neut % (Auto) 77.8 H Lymph % (Auto) 15.7 L [place] % (Auto) 4.6 Eos % (Auto) 0.9 Baso % (Auto) 0.4 Absolute Neuts (auto) 10.8 H Absolute Lymphs (auto) 2.18 Nucleated RBC % 0 Sodium 134 L Potassium 3.8 Chloride 103 Carbon Dioxide 24.0 Anion Gap 7 BUN 12 Creatinine 0.90 Estim Creat Clear Calc 135.69 Est GFR (MDRD) Af Amer 94 Est GFR (MDRD) Non-Af 78 BUN/Creatinine Ratio 13.3 Glucose 208 H Calcium 9.1 Urine Color Yellow Urine Clarity Sl. Cloudy Urine pH 5.0 Ur Specific [place] 1.025 Urine Protein 500 H Urine Glucose (UA) Normal Urine Ketones Negative Urine Occult Blood 25 H Urine Nitrite Negative Urine Bilirubin Negative Urine Urobilinogen Normal Ur Leukocyte Esterase 25 H Urine RBC 0-5 SEEN Urine WBC 5-10 SEEN Ur Squamous Epith Cells 5-10 SEEN Urine Bacteria 1+ Urine Mucus 1+ Urine Test Negative Radiography Diagnostic Testing: Clinical Impression(s) from Imaging Studies Abdomen/Pelvis CT 04/23/24 09:54 IMPRESSION: There is diffuse enlargement and engorgement of the right kidney with the perinephric and periureteric stranding due to a 5 mm calculus at the right ureteropelvic junction. Stable 6.5 mm calculus in the lower pole calyx of the right kidney. Electronically Signed: Rosalio Schwab MD at 10:30 EDT , Discharge Plan Triage Chief Complaint: Flank Pain ED Provider: Desean Hamilton Dx/Rx/DC Orders Clinical Impression: Hypertension, Ureterolithiasis, Acute flank pain, Abdominal pain Instructions: Hypertension Dc, ED Kidney Stone with Pain Prescriptions: New oxycodone-acetaminophen [Percocet] 5-325 mg tablet 1 tab PO Q6H PRN (Reason: pain) 3 Days Qty: 12 0RF No Action albuterol sulfate 90 mcg/actuation aerosol powdr breath activated 2 puff INHALATION Q6H PRN (Reason: Sob &/Or Wheezing) ibuprofen 800 MG tablet 800 mg PO Q8H PRN (Reason: Pain Or Fever) Rx Instructions: take with food meloxicam 15 mg tablet 15 mg PO DAILY metformin 1,000 mg tablet 2,000 mg PO DAILY biotin 5,000 mcg tablet,disintegrating 5,000 mcg PO DAILY cyanocobalamin (vitamin B-12) [Vitamin B-12] 1,000 mcg tablet 1,000 mcg PO DAILY cholecalciferol (vitamin D3) 1,250 mcg (50,000 unit) capsule 50,000 unit PO FR Patient Comments: take 1 capsule by mouth every week loratadine 10 mg tablet 10 mg PO Q24H pregabalin 75 mg capsule 75 mg PO TID cyclobenzaprine 10 mg tablet 10 mg PO TID PRN (Reason: muscle spasm) lisinopril 20 mg tablet 20 mg PO DAILY Qty: 30 2RF Patient Comments: PT UNSURE IF SHE SHOULD TAKE THIS AND LOSARTAN HCTZ, SO ISNT TAKING THIS OF NOW. atorvastatin 20 mg tablet 20 mg PO QHS 30 Days Qty: 30 2RF metformin 500 mg tablet 500 mg PO QPM losartan-hydrochlorothiazide 100-12.5 mg tablet 1 tab PO DAILY clindamycin phosphate 1 % lotion 1 applic topical DAILY Patient Comments: PT HASNT STARTED YET liraglutide [Victoza 3-Festus] 0.6 mg/0.1 mL (18 mg/3 mL) pen injector 0.6 mg subcut Patient Comments: PT HASNT STARTED YET valacyclovir 500 mg tablet 500 mg PO DAILY minoxidil 2.5 mg tablet 2.5 mg PO DAILY Patient Comments: PT HASNT STARTED YET ondansetron 4 mg tablet,disintegrating 4 mg PO Q8H PRN (Reason: Nausea) Primary Care Provider: Xiang Ruiz Referrals: Sarah Lunsford MD [Med Staff - Active Staff] - As soon as possible Xiang Ruiz, [Primary Care Provider] - Activity Restrictions/Additional Instructions: You need to call the office today to schedule a urgent follow-up to discuss the treatment for ureter kidney stone Print Language: Kazakh Disposition Disposition: Home, Self Care
[2024-04-23] MEDS: Ondansetron 4 MG/2 ML Vial IV (10:11)
[2024-04-23] MEDS: HYDROmorphone 1 MG/ML Syringe IV (10:12)
[2024-04-23 10:18] VITALS: BP 170/114; PULSE 92; RESP 18; O2SAT 96
[2024-04-23 10:20] VITALS: BP 165/83; PULSE 118; RESP 18; O2SAT 96
[2024-04-23 10:21] LABS: Absolute Lymphocyte Count 2.18 X10^3/uL (0.83-4.51); Absolute Neutrophil Count 10.8 X10^3/uL (2.0-7.7); Basophil# 0.05 X10^3/uL; Basophil% 0.4 % (0-1); Eosinophil# 0.13 X10^3/uL; Eosinophils% 0.9 % (0-5); Hematocrit 36.8 % (37-47); Hemoglobin 11.6 g/dL (12.0-15.0); Lymphocyte # 2.18 X10^3/ul (0.83-4.51); Lymphocyte % 15.7 % (19-41); Mean Corp Hgb Conc 31.5 g/dL (32-36); Mean Corpuscular Hgb 26.1 pg (27.0-32.0); Mean Corpuscular Volume 82.7 fL (81-99); Mean Platelet Vol. 9.2 fl (6.2-12.0); Monocyte# 0.64 X10^3/uL; Monocyte% 4.6 % (0-10); NRBC Flagged by Analyzer 0 % (0-5); Neutrophil # 10.81 X10^3/uL (2.7-7.7); Neutrophil % 77.8 % (47-70); Platelet Count 470 K/mm3 (150-450); RBC Distribution Width CV 15.7 % (11.6-14.6); RBC Distribution Width SD 46.7 fl (35.1-43.9); Red Blood Count 4.45 M/mm3 (4.2-5.4); White Blood Count 13.9 K/mm3 (4.4-11.0)
[2024-04-23 10:35] LABS: Anion Gap 7 (5-15); BUN 12 mg/dL (7-18); BUN/Creat Ratio 13.3 RATIO (10-20); Calcium,Total 9.1 mg/dL (8.5-10.1); Chloride 103 mmol/L (98-107); EST Glomerular Filtration Rate 78 mL/min (>60); Est Glom Filt Rate - Afr Amer 94 mL/min (>60); Estimated Creatinine Clearance 135.69 ml/min; Glucose 208 mg/dL (74-106); Potassium 3.8 mmol/L (3.5-5.1); Sodium Level 134 mmol/L (136-145)
[2024-04-23] MEDS: Ketorolac 30 MG/ML Syringe IV (11:10)
[2024-04-23 12:00] VITALS: BP 148/102; PULSE 121; RESP 18; O2SAT 97
[2024-04-23] MEDS: oxyCODONE 5 MG Tablet 10 MG PO (12:25)
[2024-04-23 13:06] VITALS: BP 136/86; PULSE 105; RESP 18; TEMP 36.6; O2SAT 99
== END 2024-04-23 13:08 | disposition home or self-care (01) ==
PROVIDERS: Emergency Provider Emergency Medicine; PCP Student in an Organized Health Care Education/Training Program; Visit Provider Emergency Medicine
DX: R10.30 Lower abdominal pain, unspecified (principal); E11.9 Type 2 diabetes mellitus without complications; N20.2 Calculus of kidney with calculus of ureter; I10 Essential (primary) hypertension; E78.00 Pure hypercholesterolemia, unspecified; Z79.84 Long term (current) use of oral hypoglycemic drugs; Z79.899 Other long term (current) drug therapy; Z79.85 Long-term (current) use of injectable non-insulin antidiabetic drugs; Z90.49 Acquired absence of other specified parts of digestive tract
CPT/HCPCS: 74176; 80048; 81001; 81025; 85025; 87086; 96374; 96375; 99283; A4216; J2405

== ENCOUNTER 2024-05-07 09:39 | Day surgery (SDC) | payer MEDICAID, SELFPAY ==
[2024-05-07] VITALS (8 sets, daily range): BP systolic 115–155; BP diastolic 77–110; PULSE 110–124; RESP 18–22; TEMP -12.7–36.6; O2SAT 94–97; BMI 59.5
[2024-05-07] MEDS: Lactated Ringers 1,000 ML 15 ML IV (10:11)
[2024-05-07 10:13] LABS: Internal QC Validated? YES +Cl - CLEAR BKGD; Pregnancy, Urine Negative Negative; Record Kit Lot#,Urine Preg 772476
--- NOTE | 2024-05-07 10:15 | PRE.ANES_ITS ---
ASA Classification* ASA Classification ASA Classification: 3 Assessment & Plan Anesthesia* Anesthesia Assessment Anesthesia Assessment: Discussed sedation and/or anesthesia options, risks, benefits, and alternatives with patient/parents/legal guardian/POA. Questions invited. The patient/parents/legal guardian/POA seems to understand and agrees to proceed with anesthesia plan. Reviewed the physical assessment, medical history, allergy history and patient home medications list prior to surgery/procedure/anesthetic and documented any changes. Performed airway and anesthesia risk assessments. Anesthesia Type Anesthesia Type: General (* see pre anesthesia record for full assessment) Anesthesia Focused Assessment* Airway Assessment Mouth opens: >3 cm Mallampati Score: III Focused Labs Anesthesia Preop lab: CBC WBC 13.9 K/mm3 (4.4-11.0) H 04/23/24 10:15 RBC 4.45 M/mm3 (4.2-5.4) 04/23/24 10:15 Hgb 11.6 g/dL (12.0-15.0) L 04/23/24 10:15 Hct 36.8 % (37-47) L 04/23/24 10:15 Plt Count 470 K/mm3 (150-450) H 04/23/24 10:15 CHEMISTRY Potassium 3.8 mmol/L (3.5-5.1) 04/23/24 10:15 Sodium 134 mmol/L (136-145) L 04/23/24 10:15 Magnesium 2.0 mg/dL (1.6-2.6) 12/05/23 04:37 BUN 12 mg/dL (7-18) 04/23/24 10:15 Creatinine 0.90 mg/dL (0.55-1.02) 04/23/24 10:15 Glucose 208 mg/dL (74-106) H 04/23/24 10:15 POC Glucose 157 mg/dL (74-106) H 02/20/24 07:18 TSH 6.06 uIU/mL (0.358-3.74) H 12/05/23 04:37 COAG Urine Test Negative Negative 05/07/24 09:55 Pre-Assessment Diagnosis/Proposed Procedure Planned Operative Procedure(s): CYSTO RIGHT URETEROSCOPY LASER LITHOTRIPSY URETERAL STENT Anesthesia History 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 When Was Last Pacemaker Check QUESTION #4 FULL TEXT: You/Your Family Experience fever (hyperthermia) with Anesthesia Last Oral Intake Last Oral intake: Last Oral Intake NPO since Meds taken in AM with sips of water? Meds patient instructed to take am of surgery PONV PONV - data warehouse specialist: PONV - data warehouse specialist Female Yes 05/06/24 14:59 HX of Motion Sickness Yes 05/06/24 14:59 HX of N/V After Surgery No 05/06/24 14:59 Non-Smoker Yes 05/06/24 14:59 Duration of Surgery greater Yes 05/06/24 14:59 than 60 minutes Number of Risk Factors 4 05/06/24 14:59 PONV Score Severe Risk 05/06/24 14:59 Height & Weight Height & Weight: Anesthesia: Height & Weight Height 5 ft 3 in 04/23/24 08:46 Respiratory Assessment Respiratory Assessment - data warehouse specialist: Respiratory Tract Infection Hx - data warehouse specialist Hx Respiratory Tract Infection No 05/06/24 14:59 STOP Sleep Apnea STOP Sleep Apnea - data warehouse specialist: STOP Sleep Apnea - data warehouse specialist Hx Hypertension Yes: CONTROLLED WITH MEDS 05/06/24 14:59 Hx Sleep Apnea No 05/06/24 14:59 CPAP No 05/06/24 14:59 BIPAP No 05/06/24 14:59 Do you snore loudly (louder No 05/06/24 14:59 than talking or can be heard Do you often feel tired/ No 05/06/24 14:59 fatigued/ sleepy during daytime? Has anyone observed you stop No 05/06/24 14:59 breathing during sleep? STOP Results Negative 05/06/24 14:59 QUESTION #5 FULL TEXT : Do you snore loudly (louder than talking or can be heard through closed doors)? 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 Specify any problems Hx of Preganancy in last 3 No 05/06/24 14:59 Months Nurse Filling Out Transfusion DSCHRIBER 05/06/24 14:59 & Questions: Date: 05/06/24 05/06/24 14:59 Time: 15:01 05/06/24 14:59 Patient unable to answer at this time (ie. confused, unrespo /Reproduction History /Reproductive History - data warehouse specialist: /Reproductive Hx- data warehouse specialist Hx Now Gestational Age (in weeks): EDC: Hx Hx Para Hx Section SAB No 05/06/24 14:59 Active Medications Active Medications: Current Medications Generic Name Dose Route Start Last Admin Trade Name Freq PRN Reason Stop Dose Admin Cefazolin Sodium 2 gm/ Sodium 110 mls @ 150 mls/hr 05/07/24 12:10 Chloride IV 05/07/24 12:53 PREOP ONE Lactated Ringer's 1,000 mls @ 15 mls/hr 05/07/24 09:45 05/07/24 10:11 IV 15 mls/hr .Q48H KOSTA Administration PFSH Medical History Bite from insect Contraceptive management Wears glasses Marijuana use Alcohol use Arthritis Low iron Fatty liver High cholesterol Easy bruising Back pain Syncope Dietary restriction Heartburn Non-smoker Shortness of breath on exertion Leg cramps History of pain when walking History of edema History of echocardiogram Morbid obesity Diabetes mellitus, type 2 Asthma Migraines Bilateral ovarian cysts PCOS (polycystic ovarian syndrome) Anxiety and depression Home Medications ?Medication ?Instructions ?Recorded ?Last Taken ?Type albuterol sulfate 90 mcg/actuation 2 puff inhalation Q6H PRN Sob &/Or 05/08/18 Unknown History breath activated powder inhaler Wheezing ibuprofen 800 mg tablet 800 mg PO Q8H PRN Pain Or Fever 02/26/20 Unknown History biotin 5,000 mcg disintegrating 5,000 mcg PO DAILY 08/25/23 04/23/24 History tablet meloxicam 15 mg tablet 15 mg PO DAILY 08/25/23 04/23/24 History metformin 1,000 mg tablet 2,000 mg PO BID 08/25/23 04/23/24 History cholecalciferol (vitamin D3) 1,250 50,000 unit PO FR 12/04/23 04/17/24 History mcg (50,000 unit) capsule cyclobenzaprine 10 mg tablet 10 mg PO TID PRN muscle spasm 12/04/23 04/23/24 History loratadine 10 mg tablet 10 mg PO Q24H 12/04/23 04/23/24 History pregabalin 75 mg capsule 75 mg PO TID 12/04/23 04/23/24 History losartan 100 1 tab PO DAILY 02/03/24 04/23/24 History mg-hydrochlorothiazide 12.5 mg tablet metformin 500 mg tablet 500 mg PO QPM 02/03/24 04/22/24 History cyanocobalamin (vitamin B-12) 1,000 mcg PO DAILY 03/08/24 Unknown History 1,000 mcg tablet (Vitamin B-12) clindamycin phosphate 1 % lotion 1 applic topical DAILY 04/23/24 Unknown History liraglutide 0.6 mg/0.1 mL (18 mg/3 0.6 mg subcut DAILY 04/23/24 Unknown History mL) subcutaneous pen injector (Victoza 3-Festus) minoxidil 2.5 mg tablet 2.5 mg PO DAILY 04/23/24 Unknown History ondansetron 4 mg disintegrating 4 mg PO Q8H PRN Nausea 04/23/24 Unknown History tablet valacyclovir 500 mg tablet 500 mg PO DAILY 04/23/24 04/23/24 History Allergy/AdvReac Type Severity Reaction Status Date / Time hydralazine AdvReac Mild Other Verified 05/06/24 14:56 Family History Mother Diabetes Kidney disease Surgical History Hx of cystoscopy History of cholecystectomy S/P laparoscopic procedure History of tonsillectomy corrective eye surgery History of ear, nose, and throat (ENT) surgery Social History household members: significant other Smoking Status: Never smoker alcohol intake: never substance use type: marijuana and other details: Edible cannabis OTC twice weekly. caffeine: No what type of physical activity do you participate in: walking seatbelt use: always do you feel safe at home: Yes additional social history: [place]- [employer] Patient is unemployed Review of Systems (Anesthesia) ROS Narrative System reviewed and no additional complaints, except as documented.
[2024-05-07] MEDS: Ipratropium/Albuterol Sulfate 3 ML AMPUL.NEB INHALATION (10:35)
[2024-05-07] MEDS: Cefazolin 2 GM in 0.9% Normal Saline (100mL Bag) 100 ML IV (11:35)
--- NOTE | 2024-05-07 11:35 | DCINST_ITS ---
Discharge Instructions Diet Discharge Diet: No restrictions Activity Discharge Activity: Return to Normal Activity Dressing / Incision Call your doctor if you observe: Fever of 101 or Higher, Inability to urinate and Inability to have a bowel movement Follow Up Care Please Follow Up With: Sarah Lunsford MD When: The office will call her to make follow up arrangements. Test Results: Test results from this visit will be discussed in further detail at your follow- up appointment, if applicable. Discharge Plan Admission Attending Provider: Sarah Lunsford Primary Care Provider: Xiang Ruiz Instructions Print Language: Guyanese Discharge Orders/Prescriptions Prescriptions: New oxycodone-acetaminophen [Percocet] 5-325 mg tablet 1 tab PO Q8H PRN (Reason: pain) 3 Days Qty: 10 0RF cephalexin 500 mg capsule 500 mg PO Q12 3 Days Qty: 6 0RF ciprofloxacin HCl 500 mg tablet 500 mg PO BID Qty: 14 0RF Rx Instructions: Please cancel the cephalexin Rx that was previously sent Continued albuterol sulfate 90 mcg/actuation aerosol powdr breath activated 2 puff INHALATION Q6H PRN (Reason: Sob &/Or Wheezing) ibuprofen 800 MG tablet 800 mg PO Q8H PRN (Reason: Pain Or Fever) Rx Instructions: take with food meloxicam 15 mg tablet 15 mg PO DAILY metformin 1,000 mg tablet 2,000 mg PO BID biotin 5,000 mcg tablet,disintegrating 5,000 mcg PO DAILY cyanocobalamin (vitamin B-12) [Vitamin B-12] 1,000 mcg tablet 1,000 mcg PO DAILY cholecalciferol (vitamin D3) 1,250 mcg (50,000 unit) capsule 50,000 unit PO FR Patient Comments: take 1 capsule by mouth every week loratadine 10 mg tablet 10 mg PO Q24H pregabalin 75 mg capsule 75 mg PO TID cyclobenzaprine 10 mg tablet 10 mg PO TID PRN (Reason: muscle spasm) metformin 500 mg tablet 500 mg PO QPM losartan-hydrochlorothiazide 100-12.5 mg tablet 1 tab PO DAILY clindamycin phosphate 1 % lotion 1 applic topical DAILY Patient Comments: PT HASNT STARTED YET liraglutide [Victoza 3-Festus] 0.6 mg/0.1 mL (18 mg/3 mL) pen injector 0.6 mg subcut DAILY Patient Comments: PT HASNT STARTED YET valacyclovir 500 mg tablet 500 mg PO DAILY minoxidil 2.5 mg tablet 2.5 mg PO DAILY Patient Comments: PT HASNT STARTED YET ondansetron 4 mg tablet,disintegrating 4 mg PO Q8H PRN (Reason: Nausea) Referrals / Follow Up: Xiang Ruiz DO [Primary Care Provider] - Disposition Disposition (needs filled in before D/C Order can be placed): Home, Self Care
--- NOTE | 2024-05-07 11:38 | OP.PCM_ITS ---
Report of Operation Date of Procedure: 05/07/24 Pre-Operative Diagnosis: right renal stones Post-Operative Diagnosis: same Surgery/Procedure Performed:: cystoscopy with right ureteroscopy Type of Anesthesia: General Grafts/Implants Used: Mongolian x JJ stent Complications none Admit VTE Documentation VTE Present on Admission: Yes VTE Mechan Device Prophylaxis: SCD's VTE Pharm Prophylaxis ordered?: No Reason prophylaxis not ordered:: Treatment Not Indicated
--- NOTE | 2024-05-07 11:38 | PCM.OPRPT ---
Report of Operation Date of Procedure: 05/07/24 Pre-Operative Diagnosis: right renal stones Post-Operative Diagnosis: same, urinary tract infection Surgery/Procedure Performed:: cystoscopy with right ureteroscopy, right ureteral stent insertion Surgeon: Sarah Lunsford Type of Anesthesia: General Specimen's removed: Urine for culture Description of Procedure: The patient is a 28-year-old female with right renal stones who presents for ureteroscopy and laser lithotripsy with stent insertion. Informed consent was obtained. The patient was taken to the operating room and placed on the operating room table. Anesthesia monitored the head, neck, airway, IV access and vital signs throughout the case. Once anesthesia was appropriately ministered, she was placed into dorsal lithotomy position and her pannus was retracted. She was prepped and draped in usual sterile fashion. The cystoscope was inserted through the urethra under direct visualization into the urinary bladder. The right ureteral orifice was identified. It was intubated with 2 separate 0.035 glide wires with no evidence of purulent urine drainage. One of the Glidewire's was used for passage of the flexible ureteroscope which extended all the way into the renal pelvis without difficulty. Once past the ureteropelvic junction, the renal pelvis was notably full of purulent urine. There was no visualization secondary to the urine status. The decision was made to abort the lithotripsy procedure and place a ureteral stent. A 6 Setswana 24 cm stent was selected and placed over the remaining Glidewire using the cystoscope. Urine was then sent for culture. The bladder was emptied and the cystoscope was removed. The patient was awakened and taken to the recovery room in good condition. There were no complications during the procedure. Grafts/Implants Used: 6 Setswana x 24 cm JJ stent Complications none Admit VTE Documentation VTE Present on Admission: Yes VTE Mechan Device Prophylaxis: SCD's VTE Pharm Prophylaxis ordered?: No Reason prophylaxis not ordered:: Treatment Not Indicated
--- NOTE | 2024-05-07 12:21 | PCM.POST.ANE ---
Anesthesia: Postop Eval I Current Vital Signs Temperature: 97.2 F Pulse Rate: 120 Blood Pressure: 155/88 Respiratory Rate: 22 Pulse Ox: 96 Assessment Airway patent: Yes Spontaneous unlabored respirations: Yes nausea: No Vomiting: No Anesthesia Complication: No Fluid Hydration Crystalloid volume administer (ml): 500 Total IV fluid infused: 500 Progress Note Anesthesia document: Postop Eval 1 completed: Yes
--- NOTE | 2024-05-07 12:34 | POSTOPAN2_ITS ---
Anesthesia Postop Eval I Sum Postop Eval Completion status Anesthesia document: Postop Eval 1 completed: Yes Anesthesia Postop Eval I Summary Anesthesia Postop Eval I Summary: Anesthesia Postop Eval I: Assessment Summary Airway patent Yes 05/07/24 12:21 WORT EXTRACTOR.CSIR Spontaneous unlabored Yes 05/07/24 12:21 WORT EXTRACTOR.CSIR respirations Mental status nausea No 05/07/24 12:21 WORT EXTRACTOR.CSIR Vomiting No 05/07/24 12:21 WORT EXTRACTOR.CSIR Anesthesia Postop Eval I: Fluid Summary Crystalloid volume administer 500 05/07/24 12:21 WORT EXTRACTOR.CSIR (ml) Colloids volume administered ( ml) Blood Product volume administered (ml) Total IV fluid infused 500 05/07/24 12:21 WORT EXTRACTOR.CSIR Anesthesia Postop Eval I: Summary Notes Anesthesia Complication No 05/07/24 12:21 WORT EXTRACTOR.CSIR Anesthesia Complication Comment: Post-operative progress note Anesthesia: Postop Eval II Evaluation Mental status: Awake Pain Level: 0 nausea: No Vomiting: No
--- NOTE | 2024-05-07 12:34 | PCM.POSTANE2 ---
Anesthesia Postop Eval I Sum Postop Eval Completion status Anesthesia document: Postop Eval 1 completed: Yes Anesthesia Postop Eval I Summary Anesthesia Postop Eval I Summary: Anesthesia Postop Eval I: Assessment Summary Airway patent Yes 05/07/24 12:21 RUG INSPECTOR HELPER.CSIR Spontaneous unlabored Yes 05/07/24 12:21 RUG INSPECTOR HELPER.CSIR respirations Mental status nausea No 05/07/24 12:21 RUG INSPECTOR HELPER.CSIR Vomiting No 05/07/24 12:21 RUG INSPECTOR HELPER.CSIR Anesthesia Postop Eval I: Fluid Summary Crystalloid volume administer 500 05/07/24 12:21 RUG INSPECTOR HELPER.CSIR (ml) Colloids volume administered ( ml) Blood Product volume administered (ml) Total IV fluid infused 500 05/07/24 12:21 RUG INSPECTOR HELPER.CSIR Anesthesia Postop Eval I: Summary Notes Anesthesia Complication No 05/07/24 12:21 RUG INSPECTOR HELPER.CSIR Anesthesia Complication Comment: Post-operative progress note Anesthesia: Postop Eval II Evaluation Mental status: Awake Pain Level: 0 nausea: No Vomiting: No
[2024-05-07 12:40] LABS: Bedside Glucose 165 mg/dL (74-106)
== END 2024-05-07 13:55 | disposition home or self-care (01) ==
LOC: SDC 09:40 → AC 09:41
PROVIDERS: PCP Student in an Organized Health Care Education/Training Program; Referring Provider Urology; Visit Provider Urology
PROC: 0TJ98ZZ Inspection of Ureter, Via Natural or Artificial Opening Endoscopic (ICD-10-PCS; CPT 52352; principal; 2024-05-07 12:00)
DX: N39.0 Urinary tract infection, site not specified (principal); E11.9 Type 2 diabetes mellitus without complications; N20.0 Calculus of kidney; I10 Essential (primary) hypertension; Z90.49 Acquired absence of other specified parts of digestive tract; E78.00 Pure hypercholesterolemia, unspecified; F32.9 Major depressive disorder, single episode, unspecified; F41.9 Anxiety disorder, unspecified; Z87.442 Personal history of urinary calculi; J45.909 Unspecified asthma, uncomplicated
CPT/HCPCS: 52356; 00918; 76000; 81025; 82962; 87086; 87088; 94640; J7120; J2405

== ENCOUNTER 2024-05-28 06:03 | Day surgery (SDC) | payer MEDICAID, SELFPAY ==
[2024-05-28] VITALS (12 sets, daily range): BP systolic 108–155; BP diastolic 55–100; PULSE 97–108; RESP 14–20; TEMP 36.3–36.9; O2SAT 92–98; BMI 59.8
[2024-05-28] MEDS: Lactated Ringers 1,000 ML 15 ML IV ×2 (06:15→09:28)
[2024-05-28 06:29] LABS: Internal QC Validated? YES +Cl - CLEAR BKGD; Pregnancy, Urine Negative Negative
--- NOTE | 2024-05-28 06:49 | PRE.ANES_ITS ---
ASA Classification* ASA Classification ASA Classification: 3 Assessment & Plan Anesthesia* Anesthesia Assessment Anesthesia Assessment: Discussed sedation and/or anesthesia options, risks, benefits, and alternatives with patient/parents/legal guardian/POA. Questions invited. The patient/parents/legal guardian/POA seems to understand and agrees to proceed with anesthesia plan. Reviewed the physical assessment, medical history, allergy history and patient home medications list prior to surgery/procedure/anesthetic and documented any changes. Performed airway and anesthesia risk assessments. Anesthesia Type Anesthesia Type: General Anesthesia Focused Assessment* Temperature: 97.4 F Pulse Rate: 103 Blood Pressure: 155/100 Respiratory Rate: 18 Pulse Ox: 98 Airway Assessment Mouth opens: >3 cm Mallampati Score: II Focused Labs Anesthesia Preop lab: CBC WBC 13.9 K/mm3 (4.4-11.0) H 04/23/24 10:15 RBC 4.45 M/mm3 (4.2-5.4) 04/23/24 10:15 Hgb 11.6 g/dL (12.0-15.0) L 04/23/24 10:15 Hct 36.8 % (37-47) L 04/23/24 10:15 Plt Count 470 K/mm3 (150-450) H 04/23/24 10:15 CHEMISTRY Potassium 3.8 mmol/L (3.5-5.1) 04/23/24 10:15 Sodium 134 mmol/L (136-145) L 04/23/24 10:15 Magnesium 2.0 mg/dL (1.6-2.6) 12/05/23 04:37 BUN 12 mg/dL (7-18) 04/23/24 10:15 Creatinine 0.90 mg/dL (0.55-1.02) 04/23/24 10:15 Glucose 208 mg/dL (74-106) H 04/23/24 10:15 POC Glucose 165 mg/dL (74-106) H 05/07/24 10:06 TSH 6.06 uIU/mL (0.358-3.74) H 12/05/23 04:37 COAG Urine Test Negative Negative 05/28/24 06:15 Pre-Assessment Diagnosis/Proposed Procedure Planned Operative Procedure(s): CYSTO RIGHT URETEROSCOPY LASER LITHOTRIPSY STONE BASKET EXTRACTION RIGHT STENT Anesthesia History 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 When Was Last Pacemaker Check QUESTION #4 FULL TEXT: You/Your Family Experience fever (hyperthermia) with Anesthesia Last Oral Intake Last Oral intake: Last Oral Intake NPO since 00:00 05/28/24 06:32 Meds taken in AM with sips of No 05/28/24 06:32 water? Meds patient instructed to take am of surgery PONV PONV - cathode ray tube assembler: PONV - cathode ray tube assembler Female Yes 05/19/24 15:06 HX of Motion Sickness Yes 05/19/24 15:06 HX of N/V After Surgery Yes 05/19/24 15:06 Non-Smoker Yes 05/19/24 15:06 Duration of Surgery greater Yes 05/19/24 15:06 than 60 minutes Number of Risk Factors 5 05/19/24 15:06 PONV Score Severe Risk 05/19/24 15:06 Height & Weight Height & Weight: Anesthesia: Height & Weight Height 5 ft 3 in 05/28/24 06:32 Weight: 153.2 kg 05/28/24 06:32 Body Mass Index (BMI) 59.8 05/28/24 06:32 Respiratory Assessment Respiratory Assessment - cathode ray tube assembler: Respiratory Tract Infection Hx - cathode ray tube assembler Hx Respiratory Tract Infection No 05/19/24 15:06 STOP Sleep Apnea STOP Sleep Apnea - cathode ray tube assembler: STOP Sleep Apnea - cathode ray tube assembler Hx Hypertension Yes: CONTROLLED WITH MEDS 05/19/24 15:06 Hx Sleep Apnea No 05/19/24 15:06 CPAP No 05/19/24 15:06 BIPAP No 05/19/24 15:06 Do you snore loudly (louder No 05/19/24 15:06 than talking or can be heard Do you often feel tired/ No 05/19/24 15:06 fatigued/ sleepy during daytime? Has anyone observed you stop No 05/19/24 15:06 breathing during sleep? STOP Results Negative 05/19/24 15:06 QUESTION #5 FULL TEXT : Do you snore loudly (louder than talking or can be heard through closed doors)? 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 Specify any problems Hx of Preganancy in last 3 No 05/19/24 15:06 Months Nurse Filling Out Transfusion DSCHRIBER 05/19/24 15:06 & Questions: Date: 05/19/24 05/19/24 15:06 Time: 15:09 05/19/24 15:06 Patient unable to answer at this time (ie. confused, unrespo /Reproduction History /Reproductive History - cathode ray tube assembler: /Reproductive Hx- cathode ray tube assembler Hx Now No 05/19/24 15:06 Gestational Age (in weeks): EDC: Hx Hx Para Hx Section SAB No 05/19/24 15:06 Active Medications Active Medications: Current Medications Generic Name Dose Route Start Last Admin Trade Name Freq PRN Reason Stop Dose Admin Cefazolin Sodium 3 gm/ Sodium 115 mls @ 150 mls/hr 05/28/24 07:30 Chloride IV 05/28/24 08:15 PREOP ONE Lactated Ringer's 1,000 mls @ 15 mls/hr 05/28/24 06:15 IV .Q48H KOSTA PFSH Medical History Kidney stone Contraceptive management Wears glasses Marijuana use Alcohol use Arthritis Low iron Fatty liver High cholesterol Easy bruising Back pain Syncope Dietary restriction Heartburn Non-smoker Shortness of breath on exertion Leg cramps History of pain when walking History of edema History of echocardiogram Morbid obesity Diabetes mellitus, type 2 Asthma Migraines Bilateral ovarian cysts PCOS (polycystic ovarian syndrome) Anxiety and depression Home Medications ?Medication ?Instructions ?Recorded ?Last Taken ?Type albuterol sulfate 90 mcg/actuation 2 puff inhalation Q6H PRN Sob &/Or 05/08/18 Unknown History breath activated powder inhaler Wheezing ibuprofen 800 mg tablet 800 mg PO Q8H PRN Pain Or Fever 02/26/20 05/26/24 History meloxicam 15 mg tablet 15 mg PO DAILY 08/25/23 05/27/24 History metformin 1,000 mg tablet 2,000 mg PO BID 08/25/23 05/27/24 History cholecalciferol (vitamin D3) 1,250 50,000 unit PO FR 12/04/23 04/17/24 History mcg (50,000 unit) capsule cyclobenzaprine 10 mg tablet 10 mg PO TID PRN muscle spasm 12/04/23 05/27/24 History loratadine 10 mg tablet 10 mg PO Q24H 12/04/23 05/27/24 History pregabalin 75 mg capsule 75 mg PO TID 12/04/23 05/27/24 History losartan 100 1 tab PO DAILY 02/03/24 05/27/24 History mg-hydrochlorothiazide 12.5 mg tablet metformin 500 mg tablet 500 mg PO QPM 02/03/24 05/27/24 History cyanocobalamin (vitamin B-12) 1,000 mcg PO DAILY 03/08/24 05/27/24 History 1,000 mcg tablet (Vitamin B-12) clindamycin phosphate 1 % lotion 1 applic topical DAILY 04/23/24 05/28/24 History liraglutide 0.6 mg/0.1 mL (18 mg/3 0.6 mg subcut DAILY 04/23/24 05/20/24 History mL) subcutaneous pen injector (Victoza 3-Festus) minoxidil 2.5 mg tablet 2.5 mg PO DAILY 04/23/24 05/27/24 History ondansetron 4 mg disintegrating 4 mg PO Q8H PRN Nausea 04/23/24 Unknown History tablet valacyclovir 500 mg tablet 500 mg PO DAILY 04/23/24 05/27/24 History oxycodone-acetaminophen 5 mg-325 1 tab PO Q8H PRN pain 3 days #10 05/07/24 Unknown Rx mg tablet (Percocet) tabs Allergy/AdvReac Type Severity Reaction Status Date / Time hydralazine AdvReac Mild Other Verified 05/19/24 15:06 Family History Mother Diabetes Kidney disease Surgical History Hx of cystoscopy History of cholecystectomy S/P laparoscopic procedure History of tonsillectomy corrective eye surgery History of ear, nose, and throat (ENT) surgery Social History household members: significant other Smoking Status: Never smoker alcohol intake: never substance use type: marijuana and other details: Edible cannabis OTC twice weekly. caffeine: No what type of physical activity do you participate in: walking seatbelt use: always do you feel safe at home: Yes additional social history: [employer] [place] Patient is unemployed Review of Systems (Anesthesia) ROS Narrative System reviewed and no additional complaints, except as documented.
[2024-05-28 06:56] LABS: Bedside Glucose 179 mg/dL (74-106)
[2024-05-28] MEDS: Ipratropium/Albuterol Sulfate 3 ML AMPUL.NEB INHALATION (07:09)
[2024-05-28] MEDS: Cefazolin 3 GM in 0.9% Normal Saline (100mL Bag) 100 ML IV (07:30)
--- NOTE | 2024-05-28 07:30 | CALC_PTH ---
PATIENT: SOLEDAD LOYOLA LOC: [facility] [place] U#:[id number] AGE/SX: 28/F ROOM: RE05/28/[address]: Dr. Sarah Lunsford MD : 1995 BED: DIS: 05/28/2024 SPEC #: [id number] RECD: 05/28/24 10:04 STATUS: JESSICA JORDAN #: [id number] EDGAR: 05/28/24 07:[address]: Sarah Lunsford DEPT: SURGICAL PATHOLOGY RECD BY: Eugenia Baker ENTERED: 05/28/24 11:18 SP TYPE: Calculi OTHR DR: Dr. Xiang Ruiz DO Tissues: CALCULI Procedures: Surgery Specimen Level I HEADER OPERATION: Right ureteroscopy, laser lithotripsy, stent change PRE-OP DIAGNOSIS: Right kidney stone TISSUE SUBMITTED: Right kidney stone GROSS DIAGNOSIS Fragments of stone, clinically right kidney stone (gross only). 05/28/2024 COMMENT The specimen is submitted in its entirety for chemical stone analysis. The results from this study will be reported separately. GROSS DESCRIPTION Received without fixative labeled with the patient's name and designated right kidney stone. The specimen consists of two fragments of yang-brown stone measuring in aggregate 0.8 x 0.4 x 0.2 cm. The entire specimen is submitted for stone analysis. 05/28/2024 CPT: 52864
--- NOTE | 2024-05-28 08:56 | PCM.POST.ANE ---
Anesthesia: Postop Eval I Current Vital Signs Temperature: 97.4 F Pulse Rate: 108 Blood Pressure: 132/69 Respiratory Rate: 20 Pulse Ox: 96 Oxygen Delivery Method: Simple Mask Oxygen Flow Rate (L/min): 6 Assessment Airway patent: Yes Spontaneous unlabored respirations: Yes Mental status: Awake and Calm nausea: No Vomiting: No Anesthesia Complication: No Fluid Hydration Crystalloid volume administer (ml): 900 Total IV fluid infused: 900 Progress Note Anesthesia document: Postop Eval 1 completed: Yes
--- NOTE | 2024-05-28 09:00 | DCINST_ITS ---
Discharge Instructions Diet Discharge Diet: No restrictions Activity Discharge Activity: Return to Normal Activity Dressing / Incision Call your doctor if you observe: Fever of 101 or Higher, Inability to urinate and Inability to have a bowel movement Follow Up Care Please Follow Up With: Sarah Lunsford MD When: The office will call to make follow up appointment. Test Results: Test results from this visit will be discussed in further detail at your follow- up appointment, if applicable. Discharge Plan Admission Attending Provider: Sarah Lunsford Primary Care Provider: Xiang Ruiz Instructions Print Language: Kinyarwanda Discharge Orders/Prescriptions Prescriptions: New oxycodone-acetaminophen [Percocet] 5-325 mg tablet 1 tab PO Q8H PRN (Reason: pain) 3 Days Qty: 10 0RF cephalexin 500 mg capsule 500 mg PO Q12 3 Days Qty: 6 0RF Continued albuterol sulfate 90 mcg/actuation aerosol powdr breath activated 2 puff INHALATION Q6H PRN (Reason: Sob &/Or Wheezing) ibuprofen 800 MG tablet 800 mg PO Q8H PRN (Reason: Pain Or Fever) Rx Instructions: take with food meloxicam 15 mg tablet 15 mg PO DAILY metformin 1,000 mg tablet 2,000 mg PO BID cyanocobalamin (vitamin B-12) [Vitamin B-12] 1,000 mcg tablet 1,000 mcg PO DAILY oxycodone-acetaminophen [Percocet] 5-325 mg tablet 1 tab PO Q8H PRN (Reason: pain) 3 Days Qty: 10 0RF cholecalciferol (vitamin D3) 1,250 mcg (50,000 unit) capsule 50,000 unit PO FR Patient Comments: take 1 capsule by mouth every week loratadine 10 mg tablet 10 mg PO Q24H pregabalin 75 mg capsule 75 mg PO TID cyclobenzaprine 10 mg tablet 10 mg PO TID PRN (Reason: muscle spasm) metformin 500 mg tablet 500 mg PO QPM losartan-hydrochlorothiazide 100-12.5 mg tablet 1 tab PO DAILY clindamycin phosphate 1 % lotion 1 applic topical DAILY Patient Comments: PT HASNT STARTED YET liraglutide [Victoza 3-Festus] 0.6 mg/0.1 mL (18 mg/3 mL) pen injector 0.6 mg subcut DAILY valacyclovir 500 mg tablet 500 mg PO DAILY minoxidil 2.5 mg tablet 2.5 mg PO DAILY ondansetron 4 mg tablet,disintegrating 4 mg PO Q8H PRN (Reason: Nausea) Referrals / Follow Up: Xiang Ruiz DO [Primary Care Provider] - Disposition Disposition (needs filled in before D/C Order can be placed): Home, Self Care
--- NOTE | 2024-05-28 09:04 | PCM.OPRPT ---
Report of Operation Date of Procedure: 05/28/24 Pre-Operative Diagnosis: Right renal calculus Post-Operative Diagnosis: Same Surgery/Procedure Performed:: Cystoscopy, right ureteroscopy, thulium laser lithotripsy, stone basket extraction, right ureteral stent change Surgeon: Sarah Lunsford Type of Anesthesia: General Specimen's removed: Right renal stone fragments Estimated Blood Loss (mL): <5cc Description of Procedure: The patient is a 28-year-old female with an indwelling right ureteral stent secondary to obstruction from a stone and infection. She was appropriately managed and now presents for stone treatment. Informed consent was obtained. She was taken to the operating room and placed on the operating room table. Anesthesia monitored the head, neck, airway, IV access and vital signs throughout the case. This was difficult secondary to her size and anatomy. At this time she was repositioned on the table in dorsolithotomy and her pannus was retracted. She was prepped and draped in usual sterile fashion. The cystoscope was then inserted through the urethra under direct visualization into the urinary bladder. The indwelling stent was observed. 2 separate 0.035 Glidewire's were passed alongside the stent which was then removed with grasping forceps. The flexible ureteroscope was inserted over one of the Glidewire's and advanced easily into the renal pelvis where 1 large stone was identified. This is broken into smaller pieces using a thulium laser and 200 ?m fiber. These pieces were then basket extracted using a basket. When all of the fragments that were large enough for removal had been removed, the entire length of the ureter was visualized revealing no evidence of injury. The remaining safety wire was then utilized along with the cystoscope for passage of a 6 Guatemalan 24 cm JJ stent over the wire with good positioning in the renal pelvis and urinary bladder. The bladder was then emptied and the cystoscope was removed. She was awakened and taken to the recovery room in good condition. There were no complications during this procedure, however this case was more difficult secondary to her size. Grafts/Implants Used: 6 Guatemalan by 24 cm JJ stent Complications None Admit VTE Documentation VTE Present on Admission: Yes VTE Mechan Device Prophylaxis: SCD's VTE Pharm Prophylaxis ordered?: No Reason prophylaxis not ordered:: Treatment Not Indicated
[2024-05-28] MEDS: Ketorolac 15 MG/ML Vial IV (09:28)
--- NOTE | 2024-05-28 14:05 | POSTOPAN2_ITS ---
Anesthesia Postop Eval I Sum Postop Eval Completion status Anesthesia document: Postop Eval 1 completed: Yes Anesthesia Postop Eval I Summary Anesthesia Postop Eval I Summary: Anesthesia Postop Eval I: Assessment Summary Airway patent Yes 05/28/24 08:57 INSPECTOR FINAL ASSEMBLY ELECTRICAL.EDWAROBLove Spontaneous unlabored Yes 05/28/24 08:57 INSPECTOR FINAL ASSEMBLY ELECTRICAL.OLGA LIDIA respirations Mental status Awake,Calm 05/28/24 08:57 INSPECTOR FINAL ASSEMBLY ELECTRICAL.EDWAROBLove nausea No 05/28/24 08:57 INSPECTOR FINAL ASSEMBLY ELECTRICAL.OLGA LIDIA Vomiting No 05/28/24 08:57 INSPECTOR FINAL ASSEMBLY ELECTRICAL.OLGA LIDIA Anesthesia Postop Eval I: Fluid Summary Crystalloid volume administer 900 05/28/24 08:57 INSPECTOR FINAL ASSEMBLY ELECTRICAL.FABIOY (ml) Colloids volume administered ( ml) Blood Product volume administered (ml) Total IV fluid infused 900 05/28/24 08:57 INSPECTOR FINAL ASSEMBLY ELECTRICAL.OLGA LIDIA Anesthesia Postop Eval I: Summary Notes Anesthesia Complication No 05/28/24 08:57 INSPECTOR FINAL ASSEMBLY ELECTRICAL.OLGA LIDIA Anesthesia Complication Comment: Post-operative progress note Anesthesia: Postop Eval II Evaluation Mental status: Awake and Calm Pain Level: 1 nausea: No Vomiting: No Complications Anesthesia Complication: No
--- NOTE | 2024-05-28 14:05 | PCM.POSTANE2 ---
Anesthesia Postop Eval I Sum Postop Eval Completion status Anesthesia document: Postop Eval 1 completed: Yes Anesthesia Postop Eval I Summary Anesthesia Postop Eval I Summary: Anesthesia Postop Eval I: Assessment Summary Airway patent Yes 05/28/24 08:57 CANINE ENFORCEMENT OFFICER.EDWAROBLove Spontaneous unlabored Yes 05/28/24 08:57 CANINE ENFORCEMENT OFFICER.OLGA LIDIA respirations Mental status Awake,Calm 05/28/24 08:57 CANINE ENFORCEMENT OFFICER.EDWAROBLove nausea No 05/28/24 08:57 CANINE ENFORCEMENT OFFICER.OLGA LIDIA Vomiting No 05/28/24 08:57 CANINE ENFORCEMENT OFFICER.OLGA LIDIA Anesthesia Postop Eval I: Fluid Summary Crystalloid volume administer 900 05/28/24 08:57 CANINE ENFORCEMENT OFFICER.FABIOY (ml) Colloids volume administered ( ml) Blood Product volume administered (ml) Total IV fluid infused 900 05/28/24 08:57 CANINE ENFORCEMENT OFFICER.OLGA LIDIA Anesthesia Postop Eval I: Summary Notes Anesthesia Complication No 05/28/24 08:57 CANINE ENFORCEMENT OFFICER.OLGA LIDIA Anesthesia Complication Comment: Post-operative progress note Anesthesia: Postop Eval II Evaluation Mental status: Awake and Calm Pain Level: 1 nausea: No Vomiting: No Complications Anesthesia Complication: No
[2024-06-10 12:10] LABS: Size 7x4 mm (.); Uric Acid 100 % (.)
== END 2024-05-28 10:38 | disposition home or self-care (01) ==
LOC: SDC 06:04 → AC 06:05
PROVIDERS: Anesthesiology; PCP Student in an Organized Health Care Education/Training Program; Referring Provider Urology; Visit Provider Urology
PROC: 0TJ98ZZ Inspection of Ureter, Via Natural or Artificial Opening Endoscopic (ICD-10-PCS; CPT 52352; principal; 2024-05-28 07:20)
DX: N20.0 Calculus of kidney (principal); E11.9 Type 2 diabetes mellitus without complications; I10 Essential (primary) hypertension; F12.90 Cannabis use, unspecified, uncomplicated; Z90.49 Acquired absence of other specified parts of digestive tract; E78.00 Pure hypercholesterolemia, unspecified; F32.9 Major depressive disorder, single episode, unspecified; F41.9 Anxiety disorder, unspecified; Z87.442 Personal history of urinary calculi
CPT/HCPCS: 52356; 00873; 76000; 81025; 82360; 82962; 88300; 94640; J7120; J2405

== ENCOUNTER 2024-06-09 19:06 | Emergency (ER) | payer MEDICAID, SELFPAY ==
[2024-06-09 19:11] VITALS: BP 193/88; PULSE 106; RESP 20; TEMP 36; O2SAT 96
--- NOTE | 2024-06-09 20:31 | EKG12_ITS ---
Test Reason : GEN ILL Blood Pressure : / mmHG Vent. Rate : 098 BPM Atrial Rate : 098 BPM P-R Int : 166 ms QRS Dur : 088 ms QT Int : 364 ms P-R-T Axes : 049 000 047 degrees QTc Int : 464 ms Normal sinus rhythm Minimal voltage criteria for LVH, may be normal variant ( R in aVL ) Borderline ECG Confirmed by BILLIE CRUZ, VARINDER ([id number]), newspaper managing editor LINDSEY HAWLEY ([id number]) on 06/10/2024 1:21:41 PM Referred By: Confirmed By:VARINDER WISE MD
[2024-06-09 21:01] LABS: Absolute Neutrophil Count 8.5 X10^3/uL (2.0-7.7); Basophil# 0.06 X10^3/uL; Basophil% 0.5 % (0-1); Eosinophil# 0.11 X10^3/uL; Eosinophils% 0.9 % (0-5); Hematocrit 37.9 % (37-47); Hemoglobin 11.9 g/dL (12.0-15.0); Lymphocyte % 20.6 % (19-41); Mean Corp Hgb Conc 31.4 g/dL (32-36); Mean Corpuscular Volume 82.9 fL (81-99); Mean Platelet Vol. 9.2 fl (6.2-12.0); Monocyte# 0.48 X10^3/uL; Monocyte% 4.1 % (0-10); NRBC Flagged by Analyzer 0 % (0-5); Neutrophil # 8.53 X10^3/uL (2.7-7.7); Neutrophil % 73.2 % (47-70); Platelet Count 529 K/mm3 (150-450); RBC Distribution Width CV 15.6 % (11.6-14.6); RBC Distribution Width SD 47.1 fl (35.1-43.9); Red Blood Count 4.57 M/mm3 (4.2-5.4); White Blood Count 11.7 K/mm3 (4.4-11.0)
--- NOTE | 2024-06-09 21:01 | RAD_ITS ---
STUDY: X-RAY CHEST REASON FOR EXAM: Female, 28 years old. Shortness of breath TECHNIQUE: AP portable COMPARISON: None. FINDINGS: There is less than optimal inspiratory effort however the lungs are clear. There is no demonstrated pleural abnormality. Heart is enlarged.. Normal mediastinum and aditya. Normal visualized pulmonary arteries. Normal visualized aortic arch and descending thoracic aorta. Normal visualized thoracic spine. Normal visualized ribs, clavicles, and shoulders. There is no demonstrated abnormality of the visualized soft tissue structures of the upper abdomen. RAD/Chest 1 View (Portable) IMPRESSION: Diminished inspiratory effort. No acute cardiopulmonary pathology Electronically Signed: Marty Figueredo MD at 21:37 EDT ,
[2024-06-09 21:06] VITALS: BP 152/108; PULSE 98; RESP 22; O2SAT 95
[2024-06-09 21:09] LABS: D-Dimer Quantitative (DVT/PE) 0.46 FEU/ug/m (0.27-0.49)
[2024-06-09 21:14] LABS: Internal QC Validated? YES +Cl - CLEAR BKGD; Pregnancy, Urine Negative Negative
[2024-06-09 21:15] LABS: BNP,B-Type NATRIURETIC PEPTIDE 22.3 pg/mL (0-100)
[2024-06-09 21:18] LABS: Anion Gap 8 (5-15); BUN 7 mg/dL (7-18); BUN/Creat Ratio 8.9 RATIO (10-20); Calcium,Total 9.9 mg/dL (8.5-10.1); Chloride 101 mmol/L (98-107); Creatinine, Serum 0.79 mg/dL (0.55-1.02); EST Glomerular Filtration Rate 91 mL/min (>60); Est Glom Filt Rate - Afr Amer 110 mL/min (>60); Glucose 185 mg/dL (74-106); Potassium 4.2 mmol/L (3.5-5.1); Sodium Level 136 mmol/L (136-145); Troponin-I HS (w/2H Reflex) 9 pg/mL (3.0-54.0)
[2024-06-09] MEDS: Ondansetron 4 MG/2 ML Vial IV (21:31)
[2024-06-09] MEDS: Ketorolac 30 MG/ML Syringe IV (21:31)
--- NOTE | 2024-06-09 21:53 | EX.ED.DYSGE1 ---
HPI History of Present Illness Chief Complaint: General Illness Narrative Narrative: Chief complaint and HPI: Headache and hypertension. 28-year-old female with history of morbid obesity, DM 2, hypertension, PCOS presents for evaluation of hypertension and headache. Patient states yesterday evening she developed a headache that has progressively worsened into today. She states that this headache is different then her migraines. She states this is the same headache that she feels when her blood pressure is increased. She states she took her blood pressure and it was in the 190s/180s at home which is why she presents here to the ED. She states she did take her blood pressure medication today. She describes her headache as bandlike and throbbing. Associated nausea. Denies vomiting. Denies trauma, syncope, fever, chills, chest pain, abdominal pain, vomiting, dysuria. Patient is sexually active and has an IUD. She does not believe herself to be . She denies any numbness/tingling, neurological deficits, vision changes. Patient states that she does have some mild shortness of breath. She endorses lower extremity swelling yesterday but states it is improved today. Endorses surgery approximately 1 month ago. No recent travel. No calf pain. Review of systems: See HPI Medications: As listed on the chart Allergies: As listed on the chart PFSH: Per chart Vital signs: As listed on the chart. Reviewed. Physical exam: Gen: A&O x3, NAD Head: Normocephalic, atraumatic Eyes: No sclera icterus, conjunctiva clear, PERRL, EOMI ENT: Moist mucous membranes, no facial asymmetry Neck: Trachea midline, No JVD, full range of motion, nontender CV: Tachycardic, regular rhythm, no murmurs, no peripheral edema Resp: Lungs CTA BL, no w/r/c GI: Large body habitus, abd soft, non-distended, non-tender, no r/r/g Musc: Full ROM, no deformity, strength +5/5 in all extremities, normal gait Skin: Warm, dry, intact Neuro: Alert, oriented, grossly intact, sensation intact, no focal deficits Psych: Cooperative, appropriate mood and affect EKG: Interpreted by me/EM physician: EKG shows normal sinus rhythm with a heart rate of 98. No acute ischemic changes. Diagnostic: Interpreted by me/EM physician: 1 view chest x-ray without pneumonia, pneumothorax, effusion. Low lung volumes may be secondary to body habitus. [facility] Medical History Kidney stone Contraceptive management Wears glasses Marijuana use Alcohol use Arthritis Low iron Fatty liver High cholesterol Easy bruising Back pain Syncope Dietary restriction Heartburn Non-smoker Shortness of breath on exertion Leg cramps History of pain when walking History of edema History of echocardiogram Morbid obesity Diabetes mellitus, type 2 Asthma Migraines Bilateral ovarian cysts PCOS (polycystic ovarian syndrome) Anxiety and depression Home Medications ?Medication ?Instructions ?Recorded ?Last Taken ?Type albuterol sulfate 90 mcg/actuation 2 puff inhalation Q6H PRN Sob &/Or 05/08/18 Unknown History breath activated powder inhaler Wheezing ibuprofen 800 mg tablet 800 mg PO Q8H PRN Pain Or Fever 02/26/20 05/26/24 History meloxicam 15 mg tablet 15 mg PO DAILY 08/25/23 05/27/24 History metformin 1,000 mg tablet 2,000 mg PO BID 08/25/23 05/27/24 History cholecalciferol (vitamin D3) 1,250 50,000 unit PO FR 12/04/23 04/17/24 History mcg (50,000 unit) capsule cyclobenzaprine 10 mg tablet 10 mg PO TID PRN muscle spasm 12/04/23 05/27/24 History loratadine 10 mg tablet 10 mg PO Q24H 12/04/23 05/27/24 History pregabalin 75 mg capsule 75 mg PO TID 12/04/23 05/27/24 History losartan 100 1 tab PO DAILY 02/03/24 05/27/24 History mg-hydrochlorothiazide 12.5 mg tablet metformin 500 mg tablet 500 mg PO QPM 02/03/24 05/27/24 History cyanocobalamin (vitamin B-12) 1,000 mcg PO DAILY 03/08/24 05/27/24 History 1,000 mcg tablet (Vitamin B-12) clindamycin phosphate 1 % lotion 1 applic topical DAILY 04/23/24 05/28/24 History liraglutide 0.6 mg/0.1 mL (18 mg/3 0.6 mg subcut DAILY 04/23/24 05/20/24 History mL) subcutaneous pen injector (Victoza 3-Festus) minoxidil 2.5 mg tablet 2.5 mg PO DAILY 04/23/24 05/27/24 History ondansetron 4 mg disintegrating 4 mg PO Q8H PRN Nausea 04/23/24 Unknown History tablet valacyclovir 500 mg tablet 500 mg PO DAILY 04/23/24 05/27/24 History oxycodone-acetaminophen 5 mg-325 1 tab PO Q8H PRN pain 3 days #10 05/07/24 Unknown Rx mg tablet (Percocet) tabs cephalexin 500 mg capsule 500 mg PO Q12 post-operative 3 05/28/24 Unknown Rx days #6 CAPSULES oxycodone-acetaminophen 5 mg-325 1 tab PO Q8H PRN pain 3 days #10 05/28/24 Unknown Rx mg tablet (Percocet) tabs Allergy/AdvReac Type Severity Reaction Status Date / Time hydralazine AdvReac Mild Other Verified 06/09/24 19:08 Family History Mother Diabetes Kidney disease Surgical History Hx of cystoscopy History of cholecystectomy S/P laparoscopic procedure History of tonsillectomy corrective eye surgery History of ear, nose, and throat (ENT) surgery Social History household members: significant other Smoking Status: Never smoker alcohol intake: never substance use type: marijuana and other details: Edible cannabis OTC twice weekly. caffeine: No what type of physical activity do you participate in: walking seatbelt use: always do you feel safe at home: Yes additional social history: [employer] Patient is unemployed EXAM Physical Exam Const Vital Signs: 06/09/24 19:11 06/09/24 20:06 06/09/24 21:06 Temperature 96.8 F L Temperature Source Temporal Pulse Rate 106 H 98 Respiratory Rate 20 H 22 H Respiratory Effort Normal Non-Labored Respiratory Pattern Normal Blood Pressure 193/88 H 152/108 H Blood Pressure Mean 123 122 Pulse Ox 96 95 Oxygen Delivery Method Room Air Room Air MDM MDM MDM Narrative Medical decision making narrative: 28-year-old female with history of HTN, hypertension urgency, DM2 presents for evaluation of hypertension and headache. On presentation, patient's SBP is 193/88. She has mild lightly tachycardic with a heart rate of 106. Differential diagnosis includes but is not limited to hypertension urgency, hypertensive emergency, migraine, tension headache, electrolyte abnormality, . I suspect less likely CAD, CHF, PE. Based on PERC and Wells criteria. Patient is low risk. Patient not having chest pain. Subarachnoid hemorrhage was considered however ruled out based on the [place] SAH rule. IV labetalol was originally ordered however on reexamination blood pressure 152/108. Will hold off until pain medicine is given. This may be reason for her hypertension. Cardiac workup ordered including D-dimer and urine . Urine test negative. Zofran and Toradol given for headache. EKG and chest x-ray reviewed. See above CBC with mild leukocytosis of 11.7 however previous labs patient has baseline leukocytosis. Baseline anemia. BMP without electrolyte abnormality or JO ANN. Patient does have hyperglycemia. She is a type II diabetic. Troponin unremarkable. BNP unremarkable. On reexamination, patient states her headache has improved. She is no longer tachycardic. Her SBP is in the 130s. Patient is stable to discharge home. I suspect hypertensive urgency as the cause of her headache. Patient stable to discharge home. She was educated to follow-up with her PCP. She was educated to continue checking her blood pressure at home. She confirmed understanding. Return precautions explained. Impression: 1. Hypertension urgency with known hypertension 2. Headache 3. Hyperglycemia with known type 2 diabetes 4. Chronic anemia Lab Data Labs: Laboratory Results - last 24 hr 06/09/24 06/09/24 20:45 20:57 WBC 11.7 H RBC 4.57 Hgb 11.9 L Hct 37.9 MCV 82.9 MCH 26.0 L MCHC 31.4 L RDW Std Deviation 47.1 H RDW Coeff of Servando 15.6 H Plt Count 529 H MPV 9.2 Immature Gran % (Auto) 0.700 Neut % (Auto) 73.2 H Lymph % (Auto) 20.6 [place] % (Auto) 4.1 Eos % (Auto) 0.9 Baso % (Auto) 0.5 Absolute Neuts (auto) 8.5 H Absolute Lymphs (auto) 2.40 Nucleated RBC % 0 D-Dimer Quant (PE/DVT) 0.46 Sodium 136 Potassium 4.2 Chloride 101 Carbon Dioxide 27.0 Anion Gap 8 BUN 7 Creatinine 0.79 Est GFR (MDRD) Af Amer 110 Est GFR (MDRD) Non-Af 91 BUN/Creatinine Ratio 8.9 L Glucose 185 H Calcium 9.9 Troponin I High Sens 9 B-Natriuretic Peptide 22.3 Urine Test Negative Radiography Diagnostic Testing: Clinical Impression(s) from Imaging Studies Chest X-Ray 06/09/24 21:01 IMPRESSION: Diminished inspiratory effort. No acute cardiopulmonary pathology Electronically Signed: Marty Figueredo MD at 21:37 EDT , Discharge Plan Triage Chief Complaint: General Illness ED Provider: Codey Mercedes Dx/Rx/DC Orders Clinical Impression: Hypertensive urgency, Headache Instructions: Hypertension Dc Prescriptions: No Action albuterol sulfate 90 mcg/actuation aerosol powdr breath activated 2 puff INHALATION Q6H PRN (Reason: Sob &/Or Wheezing) ibuprofen 800 MG tablet 800 mg PO Q8H PRN (Reason: Pain Or Fever) Rx Instructions: take with food meloxicam 15 mg tablet 15 mg PO DAILY metformin 1,000 mg tablet 2,000 mg PO BID cyanocobalamin (vitamin B-12) [Vitamin B-12] 1,000 mcg tablet 1,000 mcg PO DAILY oxycodone-acetaminophen [Percocet] 5-325 mg tablet 1 tab PO Q8H PRN (Reason: pain) 3 Days Qty: 10 0RF oxycodone-acetaminophen [Percocet] 5-325 mg tablet 1 tab PO Q8H PRN (Reason: pain) 3 Days Qty: 10 0RF cephalexin 500 mg capsule 500 mg PO Q12 3 Days Qty: 6 0RF cholecalciferol (vitamin D3) 1,250 mcg (50,000 unit) capsule 50,000 unit PO FR Patient Comments: take 1 capsule by mouth every week loratadine 10 mg tablet 10 mg PO Q24H pregabalin 75 mg capsule 75 mg PO TID cyclobenzaprine 10 mg tablet 10 mg PO TID PRN (Reason: muscle spasm) metformin 500 mg tablet 500 mg PO QPM losartan-hydrochlorothiazide 100-12.5 mg tablet 1 tab PO DAILY clindamycin phosphate 1 % lotion 1 applic topical DAILY Patient Comments: PT HASNT STARTED YET liraglutide [Victoza 3-Festus] 0.6 mg/0.1 mL (18 mg/3 mL) pen injector 0.6 mg subcut DAILY valacyclovir 500 mg tablet 500 mg PO DAILY minoxidil 2.5 mg tablet 2.5 mg PO DAILY ondansetron 4 mg tablet,disintegrating 4 mg PO Q8H PRN (Reason: Nausea) Primary Care Provider: Xiang Ruiz Referrals: Xiang Ruiz DO [Primary Care Provider] - 3-5 Days Activity Restrictions/Additional Instructions: Continue to check your blood pressure at home. Tylenol as needed for headache. Print Language: Albanian Disposition Disposition: Home, Self Care
[2024-06-09 22:21] VITALS: BP 144/86; PULSE 98; RESP 22; TEMP 36.7; O2SAT 95
[2024-06-09 22:48] LABS: Reflex Troponin-HS? (from REC) Y
== END 2024-06-09 22:22 | disposition home or self-care (01) ==
PROVIDERS: Emergency Provider Surgery; PCP Student in an Organized Health Care Education/Training Program; Visit Provider Surgery
DX: I16.0 Hypertensive urgency (principal); E11.65 Type 2 diabetes mellitus with hyperglycemia; R11.0 Nausea; D64.9 Anemia, unspecified; E78.00 Pure hypercholesterolemia, unspecified; I10 Essential (primary) hypertension; R51.9 Headache, unspecified; Z79.84 Long term (current) use of oral hypoglycemic drugs; M19.90 Unspecified osteoarthritis, unspecified site; Z79.899 Other long term (current) drug therapy; Z79.85 Long-term (current) use of injectable non-insulin antidiabetic drugs; Z90.49 Acquired absence of other specified parts of digestive tract; R06.02 Shortness of breath
CPT/HCPCS: 71045; 80048; 81025; 83880; 84484; 85025; 85379; 93005; 96374; 96375; 99284; J2405

== ENCOUNTER 2024-06-29 14:18 | Emergency (ER) | payer MEDICAID, SELFPAY ==
[2024-06-29 14:19] VITALS: BP 183/119; PULSE 124; RESP 20; TEMP 36.8; O2SAT 97; BMI 61.8
--- NOTE | 2024-06-29 14:21 | ED.RN ---
PT STATES UNABLE TO VOID AT THIS TIME.
--- NOTE | 2024-06-29 15:44 | CT_ITS ---
STUDY: CT ABDOMEN AND PELVIS WITHOUT CONTRAST REASON FOR EXAM: Female, 28 years old. Kidney Stone RADIATION DOSAGE (If Supplied By Facility): CTDIvol = ( 28.09 ) mGy, DLP = ( 1408.21 ) mGycm TECHNIQUE: Transaxial images were obtained from the dome of the diaphragm to the symphysis pubis without oral contrast, and without intravenous contrast. Sagittal and coronal images were reconstructed. Individualized dose optimization techniques were used for this CT. COMPARISON: None. FINDINGS: The visualized lung bases are unremarkable. The visualized portions of the heart are within normal limits. Liver is enlarged and fatty infiltrated without mass or bile duct dilatation. Gallbladder has been removed surgically.. Normal spleen. Normal pancreas. Normal bilateral adrenal glands. The right kidney is mildly enlarged and obstructed with stranding in the perinephric fat and thickening of the pararenal fascia secondary to calculus at the ureteropelvic junction measuring approximately 2 to 3 mm in size. Normal left kidney. Normal visualized stomach. Normal small intestine. Normal colon. No evidence for acute appendicitis. Normal abdominal aorta. Normal inferior vena cava. Normal retroperitoneum. Normal urinary bladder. IUD noted within the uterus in satisfactory position. Small right ovarian cyst is noted Mild periumbilical soft tissue thickening likely postsurgical. Lumbar spine demonstrates mild spondylosis. CT/Abdomen/Pelvis without Cont IMPRESSION: Right renal obstruction secondary to ureteral calculus at the ureteropelvic junction.. Electronically Signed: Marty Figueredo MD at 18:40 EDT ,
--- NOTE | 2024-06-29 15:51 | ED.VIS.FEGU ---
HPI HPI - Female History of Present Illness Chief Complaint: Flank Pain Narrative Narrative: Chief complaint and HPI: Right flank pain. 28-year-old female with history of urolithiasis, right ureteral stent, recurrent UTIs presents for evaluation of right flank pain. Patient states this morning she woke up with right flank pain that has progressively worsened. She states that it feels like her previous urolithiasis/UTI pain. She also endorses odor to her urine. Patient is in a same-sex partnership and therefore denies any chance of . Denies any vaginal discharge or pain. No concern for STI. Patient endorses nausea and vomiting. Denies any fever, chills, chest pain, shortness of breath, urinary frequency, dysuria. Review of systems: See HPI Medications: As listed on the chart Allergies: As listed on the chart PFSH: Per chart Vital signs: As listed on the chart. Reviewed. Physical exam: Gen: A&O x3, NAD Head: Normocephalic, atraumatic Eyes: No sclera icterus, conjunctiva clear ENT: Moist mucous membranes Neck: Trachea midline, No JVD CV: Tachycardic, regular rhythm, no murmurs, no peripheral edema Resp: Lungs CTA BL, no w/r/c GI: Abd soft, non-distended, tender to palpation in the right flank, no r/r/g : + CVA tenderness on the right Musc: Full ROM, no deformity Skin: Warm, dry Neuro: Alert, oriented, grossly intact, sensation intact Psych: Cooperative, appropriate mood and affect [facility] Medical History Kidney stone Contraceptive management Wears glasses Marijuana use Alcohol use Arthritis Low iron Fatty liver High cholesterol Easy bruising Back pain Syncope Dietary restriction Heartburn Non-smoker Shortness of breath on exertion Leg cramps History of pain when walking History of edema History of echocardiogram Morbid obesity Diabetes mellitus, type 2 Asthma Migraines Bilateral ovarian cysts PCOS (polycystic ovarian syndrome) Anxiety and depression Home Medications ?Medication ?Instructions ?Recorded ?Last Taken ?Type albuterol sulfate 90 mcg/actuation 2 puff inhalation Q6H PRN Sob &/Or 05/08/18 Unknown History breath activated powder inhaler Wheezing ibuprofen 800 mg tablet 800 mg PO Q8H PRN Pain Or Fever 02/26/20 05/26/24 History meloxicam 15 mg tablet 15 mg PO DAILY 08/25/23 05/27/24 History metformin 1,000 mg tablet 2,000 mg PO BID 08/25/23 05/27/24 History cholecalciferol (vitamin D3) 1,250 50,000 unit PO FR 12/04/23 04/17/24 History mcg (50,000 unit) capsule cyclobenzaprine 10 mg tablet 10 mg PO TID PRN muscle spasm 12/04/23 05/27/24 History loratadine 10 mg tablet 10 mg PO Q24H 12/04/23 05/27/24 History pregabalin 75 mg capsule 75 mg PO TID 12/04/23 05/27/24 History losartan 100 1 tab PO DAILY 02/03/24 05/27/24 History mg-hydrochlorothiazide 12.5 mg tablet metformin 500 mg tablet 500 mg PO QPM 02/03/24 05/27/24 History cyanocobalamin (vitamin B-12) 1,000 mcg PO DAILY 03/08/24 05/27/24 History 1,000 mcg tablet (Vitamin B-12) clindamycin phosphate 1 % lotion 1 applic topical DAILY 04/23/24 05/28/24 History liraglutide 0.6 mg/0.1 mL (18 mg/3 0.6 mg subcut DAILY 04/23/24 05/20/24 History mL) subcutaneous pen injector (Victoza 3-Festus) minoxidil 2.5 mg tablet 2.5 mg PO DAILY 04/23/24 05/27/24 History ondansetron 4 mg disintegrating 4 mg PO Q8H PRN Nausea 04/23/24 Unknown History tablet valacyclovir 500 mg tablet 500 mg PO DAILY 04/23/24 05/27/24 History ciprofloxacin HCl 500 mg tablet 500 mg PO BID 7 days #14 TABLETS 06/29/24 Unknown Rx oxycodone-acetaminophen 5 mg-325 1 tab PO Q6H PRN pain 3 days #12 06/29/24 Unknown Rx mg tablet (Percocet) tabs Allergy/AdvReac Type Severity Reaction Status Date / Time hydralazine AdvReac Mild Other Verified 06/29/24 14:21 Family History Mother Diabetes Kidney disease Surgical History Hx of cystoscopy History of cholecystectomy S/P laparoscopic procedure History of tonsillectomy corrective eye surgery History of ear, nose, and throat (ENT) surgery Social History household members: significant other Smoking Status: Never smoker alcohol intake: never substance use type: marijuana and other details: Edible cannabis OTC twice weekly. caffeine: No what type of physical activity do you participate in: walking seatbelt use: always do you feel safe at home: Yes additional social history: [employer] Patient is unemployed EXAM Physical Exam Const Vital Signs: 06/29/24 14:19 06/29/24 16:19 06/29/24 18:00 Temperature 98.2 F Temperature Source Oral Pulse Rate 124 H 104 H 99 Respiratory Rate 20 H 20 H 18 Blood Pressure 183/119 H 168/101 H 146/83 H Blood Pressure Mean 140 123 104 Pulse Ox 97 98 95 Oxygen Delivery Method Room Air 06/29/24 20:00 Temperature 98 F Temperature Source Pulse Rate 91 Respiratory Rate 16 Blood Pressure 148/78 H Blood Pressure Mean 101 Pulse Ox 97 Oxygen Delivery Method MDM MDM MDM Narrative Medical decision making narrative: 28-year-old female with history of recurrent UTIs, urolithiasis, ureteral stone presents for evaluation of right flank pain. States this feels similar to her previous UTI/urolithiasis. NS bolus, Toradol, Zofran ordered for symptoms. Differential diagnosis includes but is not limited to urolithiasis, UTI, electrolyte abnormality, pyelonephritis. On chart review, patient had lithotripsy with cystoscopy and right ureteral stent change on with Dr. Lunsford. CBC shows leukocytosis to 17.5 this is up from 11.7 on 06/09. Patient has baseline anemia as well as thrombocytosis. BMP unremarkable without JO ANN. UA is positive for UTI. Rocephin ordered. Patient still endorsing pain, morphine ordered. CT abdomen pelvis shows right renal obstruction secondary to ureteral calculus at the ureteropelvic junction. This is likely what is causing the patient's right flank pain. On reexamination, patient states her pain has improved. She was given the option of admission versus discharge home with pain control and follow-up with urology. Patient would like to discharge home. Given patient's UTI with urolithiasis and leukocytosis, Dr. Lunsford was contacted and patient was discussed. Given that patient would like to discharge home Dr. Lunsford is okay with this. Patient needs to have her strict return precautions such as worsening pain, nausea, vomiting, fever. She recommends ciprofloxacin for antibiotics. Patient was educated on the recommendations and confirmed understanding. She was given narcotics for pain control as well as ciprofloxacin for antibiotics. Strict return precautions were explained. She confirmed understanding. Impression: 1. Urolithiasis 2. UTI Lab Data Labs: Laboratory Results - last 24 hr 06/29/24 06/29/24 15:52 16:29 WBC 17.5 H RBC 4.49 Hgb 11.9 L Hct 37.8 MCV 84.2 MCH 26.5 L MCHC 31.5 L RDW Std Deviation 46.8 H RDW Coeff of Servando 15.6 H Plt Count 456 H MPV 9.4 Immature Gran % (Auto) 0.600 Neut % (Auto) 80.8 H Lymph % (Auto) 11.7 L [place] % (Auto) 5.7 Eos % (Auto) 0.9 Baso % (Auto) 0.3 Absolute Neuts (auto) 14.2 H Absolute Lymphs (auto) 2.06 Nucleated RBC % 0 Sodium 138 Potassium 4.1 Chloride 104 Carbon Dioxide 25.0 Anion Gap 9 BUN 17 Creatinine 0.92 Estim Creat Clear Calc 133.76 Est GFR (MDRD) Af Amer 91 Est GFR (MDRD) Non-Af 75 BUN/Creatinine Ratio 18.4 Glucose 179 H Calcium 9.2 Urine Color Yellow Urine Clarity Cloudy Urine pH 6.0 Ur Specific [place] 1.015 Urine Protein 100 H Urine Glucose (UA) Normal Urine Ketones Negative Urine Occult Blood 50 H Urine Nitrite Negative Urine Bilirubin Negative Urine Urobilinogen Normal Ur Leukocyte Esterase 500 H Urine RBC 0-5 SEEN Urine WBC >100 SEEN Ur Squamous Epith Cells 0-5 SEEN Ur Transition Epith Cell 0-5 SEEN Ur Renal Epithelial Cell 0-5 SEEN Urine Bacteria 1+ Urine Mucus 0 SEEN Urine Test Negative Radiography Diagnostic Testing: Clinical Impression(s) from Imaging Studies Abdomen/Pelvis CT 06/29/24 15:44 IMPRESSION: Right renal obstruction secondary to ureteral calculus at the ureteropelvic junction.. Electronically Signed: Marty Figueredo MD at 18:40 EDT , Discharge Plan Triage Chief Complaint: Flank Pain ED Provider: Codey Mercedes Dx/Rx/DC Orders Clinical Impression: Urolithiasis, UTI (urinary tract infection) Instructions: UTIs Understanding, ED Kidney Stone with Pain Prescriptions: New ciprofloxacin HCl [ciprofloxacin HCl] 500 mg tablet 500 mg PO BID 7 Days Qty: 14 0RF oxycodone-acetaminophen [Percocet] 5-325 mg tablet 1 tab PO Q6H PRN (Reason: pain) 3 Days Qty: 12 0RF Discontinued oxycodone-acetaminophen [Percocet] 5-325 mg tablet 1 tab PO Q8H PRN (Reason: pain) 3 Days Qty: 10 0RF oxycodone-acetaminophen [Percocet] 5-325 mg tablet 1 tab PO Q8H PRN (Reason: pain) 3 Days Qty: 10 0RF cephalexin 500 mg capsule 500 mg PO Q12 3 Days Qty: 6 0RF No Action albuterol sulfate 90 mcg/actuation aerosol powdr breath activated 2 puff INHALATION Q6H PRN (Reason: Sob &/Or Wheezing) ibuprofen 800 MG tablet 800 mg PO Q8H PRN (Reason: Pain Or Fever) Rx Instructions: take with food meloxicam 15 mg tablet 15 mg PO DAILY metformin 1,000 mg tablet 2,000 mg PO BID cyanocobalamin (vitamin B-12) [Vitamin B-12] 1,000 mcg tablet 1,000 mcg PO DAILY cholecalciferol (vitamin D3) 1,250 mcg (50,000 unit) capsule 50,000 unit PO FR Patient Comments: take 1 capsule by mouth every week loratadine 10 mg tablet 10 mg PO Q24H pregabalin 75 mg capsule 75 mg PO TID cyclobenzaprine 10 mg tablet 10 mg PO TID PRN (Reason: muscle spasm) metformin 500 mg tablet 500 mg PO QPM losartan-hydrochlorothiazide 100-12.5 mg tablet 1 tab PO DAILY clindamycin phosphate 1 % lotion 1 applic topical DAILY Patient Comments: PT HASNT STARTED YET liraglutide [Victoza 3-Festus] 0.6 mg/0.1 mL (18 mg/3 mL) pen injector 0.6 mg subcut DAILY valacyclovir 500 mg tablet 500 mg PO DAILY minoxidil 2.5 mg tablet 2.5 mg PO DAILY ondansetron 4 mg tablet,disintegrating 4 mg PO Q8H PRN (Reason: Nausea) Primary Care Provider: Xiang Ruiz Referrals: Sarah Lunsford MD [Med Staff - Active Staff] - 3-5 Days Xiang Ruiz DO [Primary Care Provider] - 3-5 Days Activity Restrictions/Additional Instructions: Return back to the ED if symptoms worsen or change Print Language: Lao Disposition Disposition: Home, Self Care Discharge Date/Time: 06/29/24 20:12
[2024-06-29 16:07] LABS: Absolute Lymphocyte Count 2.06 X10^3/uL (0.83-4.51); Absolute Neutrophil Count 14.2 X10^3/uL (2.0-7.7); Basophil# 0.06 X10^3/uL; Basophil% 0.3 % (0-1); Eosinophil# 0.15 X10^3/uL; Eosinophils% 0.9 % (0-5); Hematocrit 37.8 % (37-47); Hemoglobin 11.9 g/dL (12.0-15.0); Lymphocyte # 2.06 X10^3/ul (0.83-4.51); Lymphocyte % 11.7 % (19-41); Mean Corp Hgb Conc 31.5 g/dL (32-36); Mean Corpuscular Hgb 26.5 pg (27.0-32.0); Mean Corpuscular Volume 84.2 fL (81-99); Mean Platelet Vol. 9.4 fl (6.2-12.0); Monocyte% 5.7 % (0-10); NRBC Flagged by Analyzer 0 % (0-5); Neutrophil # 14.16 X10^3/uL (2.7-7.7); Neutrophil % 80.8 % (47-70); Platelet Count 456 K/mm3 (150-450); RBC Distribution Width CV 15.6 % (11.6-14.6); RBC Distribution Width SD 46.8 fl (35.1-43.9); Red Blood Count 4.49 M/mm3 (4.2-5.4); White Blood Count 17.5 K/mm3 (4.4-11.0)
[2024-06-29] MEDS: 0.9% Normal Saline (1000mL) 1,000 ML 999 ML IV (16:10)
[2024-06-29] MEDS: Ondansetron 4 MG/2 ML Vial IV (16:10)
[2024-06-29 16:19] VITALS: BP 168/101; PULSE 104; RESP 20; O2SAT 98
[2024-06-29 16:21] LABS: Anion Gap 9 (5-15); BUN 17 mg/dL (7-18); BUN/Creat Ratio 18.4 RATIO (10-20); Calcium,Total 9.2 mg/dL (8.5-10.1); Chloride 104 mmol/L (98-107); Creatinine, Serum 0.92 mg/dL (0.55-1.02); EST Glomerular Filtration Rate 75 mL/min (>60); Est Glom Filt Rate - Afr Amer 91 mL/min (>60); Estimated Creatinine Clearance 133.76 ml/min; Glucose 179 mg/dL (74-106); Potassium 4.1 mmol/L (3.5-5.1); Sodium Level 138 mmol/L (136-145)
[2024-06-29 16:34] LABS: Mucous, Urine 0 SEEN /hpf (<or=2+)
[2024-06-29 16:39] LABS: Color, Urine Yellow (Yellow); Glucose, Dipstick Normal (Normal); Ketone-Dipstick Negative (Negative); Leukocyte Esterase-Dipstick 500 /ul (Negative); Nitrite-Dipstick Negative (Negative); Occult Blood-Urine 50 /ul (Negative); Protein-Dipstick 100 mg/dl (Negative); Specific Gravity, Urine 1.015 (1.002-1.030); Urine Bilirubin Dipstick Negative (Negative); Urine Clarity Cloudy (Clear); Urine Urobilinogen Normal (Normal)
[2024-06-29 16:48] LABS: Internal QC Validated? YES +Cl - CLEAR BKGD; Pregnancy, Urine Negative Negative; Record Kit Lot#,Urine Preg 772476
[2024-06-29 17:13] LABS: Red Blood Cells-Urine 0-5 SEEN /hpf (0-5); Squamous Epithelial Cells - UA 0-5 SEEN /hpf (5-10); White Blood Cells >100 SEEN /hpf (0-5)
[2024-06-29 17:15] LABS: Bacteria 1+ /hpf (None Seen); Renal Epithelial Cells 0-5 SEEN /hpf (0-5); Transitional Epithelial - Ur 0-5 SEEN /hpf (0-5)
[2024-06-29] MEDS: Ketorolac 15 MG/ML Vial IV (17:36)
[2024-06-29 18:00] VITALS: BP 146/83; PULSE 99; RESP 18; O2SAT 95
[2024-06-29] MEDS: Ceftriaxone 1 GM/50 ML BAG IV (18:27)
[2024-06-29] MEDS: Morphine 4 MG/ML Syringe IV (19:04)
[2024-06-29 20:00] VITALS: BP 148/78; PULSE 91; RESP 16; TEMP 36.6; O2SAT 97
[2024-06-29] MEDS: oxyCODONE 5 MG Tablet PO (20:08)
== END 2024-06-29 20:12 | disposition home or self-care (01) ==
PROVIDERS: Emergency Provider Surgery; PCP Student in an Organized Health Care Education/Training Program; Visit Provider Surgery
DX: N20.1 Calculus of ureter (principal); E11.9 Type 2 diabetes mellitus without complications; N39.0 Urinary tract infection, site not specified; N28.89 Other specified disorders of kidney and ureter; E78.00 Pure hypercholesterolemia, unspecified; Z79.84 Long term (current) use of oral hypoglycemic drugs; Z79.85 Long-term (current) use of injectable non-insulin antidiabetic drugs; Z90.49 Acquired absence of other specified parts of digestive tract
CPT/HCPCS: 74176; 80048; 81001; 81025; 85025; 87086; 87088; 96361; 96365; 96375; 99283; J7030; J7050; A4216; J2405

== ENCOUNTER 2024-07-25 05:18 | Emergency (ER) | payer MEDICAID, SELFPAY ==
[2024-07-25 05:21] VITALS: BP 195/125; PULSE 124; RESP 20; TEMP 36.5; O2SAT 99; BMI 59.9
--- NOTE | 2024-07-25 05:45 | EX.ED.DYSGE1 ---
HPI History of Present Illness Chief Complaint: Back Informant: patient and spouse/S.O. Narrative Narrative: Patient is a 28-year-old female with past medical history of type II [id number] diabetes PCOS morbid obesity and recurrent/chronic sciatica and low back pain. She is on Lyrica secondary to this. She states for the past week she has been having a flare . She states she has been taking her medication as directed. She denies any recent trauma or excessive activity. She denies any loss of bowel or bladder control or IV drug use. She states there has been no dysuria or concern for STD or . She states that she tried to give the symptoms time to resolve but as they have not done so she presents for evaluation. [facility] Medical History Kidney stone Contraceptive management Wears glasses Marijuana use Alcohol use Arthritis Low iron Fatty liver High cholesterol Easy bruising Back pain Syncope Dietary restriction Heartburn Non-smoker Shortness of breath on exertion Leg cramps History of pain when walking History of edema History of echocardiogram Morbid obesity Diabetes mellitus, type 2 Asthma Migraines Bilateral ovarian cysts PCOS (polycystic ovarian syndrome) Anxiety and depression Home Medications ?Medication ?Instructions ?Recorded ?Last Taken ?Type albuterol sulfate 90 mcg/actuation 2 puff inhalation Q6H PRN Sob &/Or 05/08/18 Unknown History breath activated powder inhaler Wheezing meloxicam 15 mg tablet 15 mg PO DAILY 08/25/23 05/27/24 History metformin 1,000 mg tablet 2,000 mg PO BID 08/25/23 05/27/24 History cholecalciferol (vitamin D3) 1,250 50,000 unit PO FR 12/04/23 04/17/24 History mcg (50,000 unit) capsule cyclobenzaprine 10 mg tablet 10 mg PO TID PRN muscle spasm 12/04/23 05/27/24 History loratadine 10 mg tablet 10 mg PO Q24H 12/04/23 05/27/24 History pregabalin 75 mg capsule 75 mg PO TID 12/04/23 05/27/24 History losartan 100 1 tab PO DAILY 02/03/24 05/27/24 History mg-hydrochlorothiazide 12.5 mg tablet metformin 500 mg tablet 500 mg PO QPM 02/03/24 05/27/24 History cyanocobalamin (vitamin B-12) 1,000 mcg PO DAILY 03/08/24 05/27/24 History 1,000 mcg tablet (Vitamin B-12) clindamycin phosphate 1 % lotion 1 applic topical DAILY 04/23/24 05/28/24 History liraglutide 0.6 mg/0.1 mL (18 mg/3 0.6 mg subcut DAILY 04/23/24 05/20/24 History mL) subcutaneous pen injector ([employer]-Festus) minoxidil 2.5 mg tablet 2.5 mg PO DAILY 04/23/24 05/27/24 History ondansetron 4 mg disintegrating 4 mg PO Q8H PRN Nausea 04/23/24 Unknown History tablet valacyclovir 500 mg tablet 500 mg PO DAILY 04/23/24 05/27/24 History diazepam 5 mg tablet (Valium) 5 mg PO TID PRN muscle spasm 5 07/25/24 Unknown Rx days #15 tabs oxycodone-acetaminophen 5 mg-325 1 tab PO Q6H PRN pain 3 days #12 07/25/24 Unknown Rx mg tablet (Percocet) tabs Allergy/AdvReac Type Severity Reaction Status Date / Time hydralazine AdvReac Mild Other Verified 07/25/24 05:19 Family History Mother Diabetes Kidney disease Surgical History Hx of cystoscopy History of cholecystectomy S/P laparoscopic procedure History of tonsillectomy corrective eye surgery History of ear, nose, and throat (ENT) surgery Social History household members: significant other Smoking Status: Never smoker alcohol intake: never substance use type: marijuana and other details: Edible cannabis OTC twice weekly. caffeine: No what type of physical activity do you participate in: walking seatbelt use: always do you feel safe at home: Yes additional social history: [place] Patient is unemployed ROS ROS ED Constitutional Constitutional ED: Denies chills or fever(s) ENT ENT ED: Denies sore throat Cardiovascular Cardiovascular: Denies chest pain Respiratory/Chest Respiratory/Chest: Denies cough or dyspnea Gastrointestinal Gastrointestinal: Denies abdominal pain, diarrhea, nausea or vomiting Genitourinary Genitourinary ED: Denies dysuria, hematuria or urinary frequency Musculoskeletal Musculoskeletal: Reports back pain Integumentary Denies rash Neurologic Neurologic: Reports paresthesias; Denies headache(s) Hematologic/Lymphatic Hematologic/Lymphatic: Denies easy bleeding or easy bruising EXAM Physical Exam Const Vital Signs: 07/25/24 05:21 Temperature 97.7 F L Temperature Source Oral Pulse Rate 124 H Respiratory Rate 20 H Blood Pressure 195/125 H Blood Pressure Mean 148 Pulse Ox 99 Oxygen Delivery Method Room Air Positive well nourished, well developed and obese General Appearance ED: well developed Nutritional Appearance: obese HEENT HEENT Narrative: Normocephalic atraumatic Eyes PERRL and EOMs intact bilaterally General Eye ED: Negative for scleral icterus Neck supple Resp normal respiratory effort and clear to auscultation bilaterally Cardio regular rhythm Rate: tachycardic and other Other Details: Tachycardic rate with regular rhythm Radial and carotid pulses are equal and symmetric GI non-tender, non-distended and no masses GI Narrative: Obese soft nontender nondistended with normal active bowel sounds. No voluntary guarding or rigidity or pulsatile mass Auscultation: normoactive bowel sounds Palpation: soft Back/Spine Back/Spine Narrative: No bony deformity or step-off of the thoracic or lumbar spine no midline tenderness to palpation. There is pain and spasm noted along the right paralumbar muscle belly region that extends down into the piriformis muscle. Negative straight leg raise. No clonus or Babinski. No saddle anesthesia. Patellar reflexes are plus 1 out of 4 bilaterally Positive Silas sign on right Extremity normal to inspection Neuro oriented x3, CN's II-XII intact bilaterally and no sensory deficits noted Sensorium / Orientation: alert Psych mental status grossly normal Skin no rashes or lesions noted Skin Narrative: No overlying soft tissue changes to suggest trauma or infection MDM MDM MDM Narrative Medical decision making narrative: Patient arrived to ER tachycardic and hypertensive but states that these vitals are normal for her when she is in pain. She denied loss of bowel or bladder control or IV drug use going against cauda equina or epidural abscess. She states has been no recent back procedures going against discitis or osteomyelitis. She does not have signs of neuro claudication and she denies urinary symptoms that could suggest UTI or pyelonephritis as a cause of her back pain. Therefore this time as history and exam indicate this is just most likely a flare of her chronic issues she will be treated with what she reports has helped her in the past and is otherwise safe for discharge History & Record Review Discussion w/independent historian: Patient and Significant other Discharge Plan Triage Chief Complaint: Back ED Provider: Omar Matthews Dx/Rx/DC Orders Clinical Impression: Low back pain, Sciatica, Muscle spasm of back, Morbid obesity with BMI of 60.0-69.9, adult, PCOS (polycystic ovarian syndrome), Type 2 diabetes mellitus Instructions: Understanding Lumbar Radiculopathy, ED Back Spasm, No Trauma Prescriptions: New diazepam [Valium] 5 mg tablet 5 mg PO TID PRN (Reason: muscle spasm) 5 Days Qty: 15 0RF oxycodone-acetaminophen [Percocet] 5-325 mg tablet 1 tab PO Q6H PRN (Reason: pain) 3 Days Qty: 12 0RF No Action albuterol sulfate 90 mcg/actuation aerosol powdr breath activated 2 puff INHALATION Q6H PRN (Reason: Sob &/Or Wheezing) meloxicam 15 mg tablet 15 mg PO DAILY metformin 1,000 mg tablet 2,000 mg PO BID cyanocobalamin (vitamin B-12) [Vitamin B-12] 1,000 mcg tablet 1,000 mcg PO DAILY cholecalciferol (vitamin D3) 1,250 mcg (50,000 unit) capsule 50,000 unit PO FR Patient Comments: take 1 capsule by mouth every week loratadine 10 mg tablet 10 mg PO Q24H pregabalin 75 mg capsule 75 mg PO TID cyclobenzaprine 10 mg tablet 10 mg PO TID PRN (Reason: muscle spasm) metformin 500 mg tablet 500 mg PO QPM losartan-hydrochlorothiazide 100-12.5 mg tablet 1 tab PO DAILY clindamycin phosphate 1 % lotion 1 applic topical DAILY liraglutide [Victoza 3-Festus] 0.6 mg/0.1 mL (18 mg/3 mL) pen injector 0.6 mg subcut DAILY valacyclovir 500 mg tablet 500 mg PO DAILY minoxidil 2.5 mg tablet 2.5 mg PO DAILY ondansetron 4 mg tablet,disintegrating 4 mg PO Q8H PRN (Reason: Nausea) Primary Care Provider: Xiang Ruiz Referrals: Xiang Ruiz DO [Primary Care Provider] - Print Language: Upper Sorbian Disposition Disposition: Home, Self Care
--- OUTSIDE RECORDS SUMMARY | 2024-07-25 05:54 | XMS RPT_ITS | CCD ---
Author Organization [facility] Care Team Providers Care 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 Name Role Phone PROVIDER, UNKNOWN Attending Unavailable PROVIDER, UNKNOWN Admitting Unavailable ALYCIAT, LEA Primary Care Unavailable PROVIDER, UNKNOWN Attending Unavailable PROVIDER, UNKNOWN Admitting Unavailable PEPPER, LEA Primary Care Unavailable CONSULT, IP SURGERY TRAUMA Referring Unava ilable REQUEST, IP PHYSICAL THERAPY SERVICE Consulting Unavailable TASNEEM MARAVILLAA Attending Unavailable FARAZ MARAVILLA Admitting Unavailable ALVIN GASPAR Referring Unavailable PEPPER, LEA Primary Care Unavailable REQUEST, IP OCCUPATIONAL THERAPY SERVICE Consult ing Unavailable Xiang Ruiz DO Primary Care Provider SwiharLea hull Primary Care Provider RuizXiang sanabria DO Primary Care Provider [phone] TYREE BRIZUELA Attending Unavailable TYREE BRIZUELA Admitting Unavailable RUIZ, XIANG Laura Primary Care Unavailable RUIZ, XIANG L Primary Care Unavailable RUIZ, XIANG L Attending Unavailable RUIZ, XIANG L Referring Unavailable RUIZ, XIANG L Primary Care Unavailable RUIZ, XINAG L Primary Care Unavailable RUIZ, XIANG L Attending Unavailable RUIZ, XIANG L Primary Care Unavailable PRASHANTH BAIRD Referring Unavailable RUIZ, XIANG L Primary Care Unavailable RUIZ, XIANG L Referring Unavailable RUIZ, XIANG L Primary Care Unavailable RUIZ, XIANG L Attending Unavailable RUIZ, XIANG L Primary Care Unavailable TYREE BRIZUELA Attending Unavailable RUIZ, XIANG Laura Referring Unavailable Allergies Allergy Classification Reported Allergen(s) Allergy Type Date of Onset Reaction(s) Facility (20 sources) Onion extract; Translations: [ONION] Drug Allergy 3 Anaphylaxis [facility] Repository (2 sources) OTHER (REVIEW COMMENTS!); Translations: [OTHER (REVIEW COMMENTS!)] Propensity to adverse reactions to drug (disorder) 1 [facility] [place] Oil; Translations: [PINE OIL] Allergy to substance 3 Hives, Swelling, Itching [facility] Work Phone: Medications Current Medications Medication Drug Class(es) Dates Sig (Normalized) Sig (Original) [id number] 200 actuat albuterol 0.09 mg/actuat metered dose inhaler (20 sources) beta2-Adrenergic Agonist Start: 06-13-2022 End: 10-07-2023 take 2 puff(s) by inhalation every six hours as needed albuterol HFA (PROAIR HFA) 90 mcg/actuation inhaler Inhale 2 Puffs as instructed every 6 hours as needed. 36 g 1 10/08/2023 Active take 2 puff(s) by in halation every four hours as needed albuterol 90 mcg/actuation aero Inhale 2 Puffs as instructed every 4 hours as needed. Active Comment on above: Inhale 2 Puffs as in structed every 4 hours as needed. Inhale 2 Puffs as in structed every 6 hours as needed. baclofen 10 mg oral tablet (20 sources) gamma-Aminobutyric Acid-ergic Agonist Start: 01-06-2021 take 1 tablet by mouth every eight hours as needed baclofen (LIORESAL) 10 mg tablet Take 1 tablet by mouth three times daily as needed (Muscle spasms). 50 tablet 01/06/2021 Active take 1 tablet by mouth once bacl ofen (LIORESAL) 10 MG tablet Take 10 mg by mouth once. 0 Active Comment on above: Take 1 tablet by patrick three times daily as needed (Muscle spasms). cholecalciferol 1.25 mg oral capsule (20 sources) Vitamin D Start: 06-23-2024 take 1 capsule by mouth every week cholecalciferol, Vitamin D3, (VITAMIN D3) 1,250 mcg (50,000 unit) cap capsule Take 1 capsule by mouth one time a week. 4 capsule 2 06/23/2024 Active Start: 10-18-2022 End: 01-16-2024 take 1 capsule by mouth every week cholecalciferol, Vitamin D3, (VITAMIN D3) 1,250 mcg (50,000 unit) cap capsule Take 1 capsule by mouth one time a week. 4 capsule 2 01/16/2024 Active Start: 05-11-2019 End: 02-06-2024 take 1 tablet by mouth once daily cholecalciferol (VITAMIN D3) 5,000 unit tab Take 1 tablet by mouth once daily. 90 tablet 3 05/11/2019 02/06/2024 Discontinued Comment on above: Take 1 tablet by patrick th once daily. Take 1 capsule by mo [facility] one time a week. ciprofloxacin 500 mg oral tablet (1 source) Quinolone Antimicrobial Start: End: take 1 tablet by mouth twice daily ciprofloxacin HCl (CIPRO) 500 mg tablet Take 1 tablet by mouth two times a day for 7 days. 14 tablet 06/30/2024 07/07/2024 Active clindamycin 10 mg/ml topical lotion (10 sources) Lincosamide Antibacterial Start: Clindamycin Phosphate (CLEOCIN T) 1 % lotion Indications: Acne vulgaris Apply to affected area two times a day. 60 mL 1 04/21/2024 Active cyclobenzaprine hydrochloride 10 mg oral tablet (20 sources) Muscle Relaxant Start: take 1 tablet by mouth three times daily as needed for muscle spasms cyclobenzaprine (FLEXERIL) 10 mg tablet Indications: Back muscle spasm Take 1 tablet by mouth three times a day as needed for muscle spasm. 90 tablet 05/14/2024 Active Start: 11-04-2020 End: 05-12-2024 take 1 tablet by mouth three times daily as needed for muscle spasms cyclobenzaprine (FLEXERIL) 10 mg tablet Indications: Back muscle spasm Take 1 tablet by mouth three times daily as needed for Muscle Spasm. 90 tablet 11/04/2020 12/11/2023 Discontinued Start: 09-28-2019 take 1 tablet by patrick th twice daily as needed for muscle spasms cyclobenzaprine (FLEXERIL) 10 mg tablet Indications: Chronic pain of both shoulders Take 1 tablet by mouth twice daily as needed for Muscle Spasm. 60 tablet 09/28/2019 Active Comment on above: Take 1 tablet by patrick twice daily as needed for Muscle Spasm. Take 1 tablet by patrick th three times daily as needed for Muscle Spasm. Take 1 tablet by patrick th three times a day as needed for muscle spasm. [id number] 0.3 ml EPINEPHrine 1 mg/ml auto-injector (20 sources) alpha-Adrenergic Agonist, beta-Adrenergic Agonist, Catecholamine Start: 019 EPINEPHrine (EPIPEN) 0.3 mg/0.3 mL auto-injector Use as directed for allergic reaction 2 Each 3 09/28/2019 Active Comment on above: Use as directed for allergic reaction fluconazole 200 mg oral tablet (20 sources) Azole Antifungal Start: 022 End: 023 take 1 tablet by mouth once, then take 3 tablets by mouth once fluconazole (DIFLUCAN) 200 mg tablet Indications: Tinea corporis Take 1 tablet PO once x 1 day, then repeat on days 3, 5, 7, and 9 7 tablet 1 10/03/2022 Active Comment on above: Take 1 tablet PO onc e x 1 day, then repeat on days 3, 5, 7, and 9 gabapentin 300 mg oral capsule (1 source) Anti-epileptic Agent take 1 capsule by mouth three times daily gabapentin (NEURONTIN) 300 MG capsule Take 300 mg by mouth 3 times daily. 0 Active hydroCHLOROthiazide 12.5 mg / losartan potassium 100 mg oral tablet (20 sources) Thiazide Diuretic, Angiotensin 2 Receptor Ofelia Start: 024 take 1 tablet by mouth once daily losartan-hydroCHLO ROthiazide (HYZAAR) 100-12.5 mg per tablet Take 1 tablet by mouth once daily. 30 tablet 1 06/17/2024 Active Start: 12-25-2023 End: 06-15-2024 take 1 tablet by mouth once daily losartan-hydroCHLOROthiazide (HYZAAR) 100-12.5 mg per tablet Take 1 tablet by mouth once daily. 30 tablet 1 03/06/2024 06/15/2024 Discontinued Comment on above: Take 1 tablet by patrick th once daily. ibuprofen 800 mg oral tablet (20 sources) Nonsteroidal Anti-inflammatory Drug Start: 10-31-19 take 1 tablet by mouth every eight hours as needed for pain ibuprofen (MOTRIN) 800 mg tablet Indications: Left sided sciatica , Chronic left-sided low back pain with left-sided sciatica Take 1 tablet by mouth every 8 hours as needed for Pain. Take with food. 90 tablet 1 10/31/2020 Active Comment on above: Take 1 tablet by patrick th every 8 hours as needed for Pain. Take with food. ketoconazole 20 mg/ml topical cream (8 sources) Azole Antifungal Start: 12-04-19 End: 01-03-20 ketoconazole (NIZORAL) 2 % cream Indications: Tinea corporis Apply to affected area two CRP [Mass/Vol] 2.4 mg/dL High <0.9 [facility] Comment on above: Order Comment: Speci men Type: BLOOD SPECIMENOrdering Facility: [facility] Address: [address] [place] [address] Performed By: #### 3 016-3, 24277-9, 1988-01, ####[facility] LABIA [id number] [place] [address] [place] Comprehensive metabolic 2000 panelon 12-09-2023 Albumin [Mass/Vol] 3.8 g/dL Low 3.9-4.9 [facility] Comment on above: Order Comment: Speci men Type: BLOOD SPECIMENOrdering Facility: [facility] Address: [address] [place] [address] Performed By: #### 3 016-3, 36955-3, ####[facility] LABIA [id number] [place] [address] [place] ALP [Catalytic activity/Vol] 87 U/L Normal 34-123 [facility] Comment on above: Order Comment: Speci men Type: BLOOD SPECIMENOrdering Facility: [facility] Address: [address] [place] [address] Performed By: #### 3 016-3, 00089-8, ####[facility] LABIA [id number] [place] [address] [place] ALT [Catalytic activity/Vol] 14 U/L Normal 7-38 [facility] Comment on above: Order Comment: Speci men Type: BLOOD SPECIMENOrdering Facility: [facility] Address: [address] [place] [address] Performed By: #### 3 016-3, 85608-6, 1988-01, ####[facility] LABCLIA [id number] [place] [id number] [place] Anion gap [Moles/Vol] 12 mmol/L Normal 9-18 [facility] Comment on above: Order Comment: Speci men Type: BLOOD SPECIMENOrdering Facility: [facility] Address: [address] [place] [address] Performed By: #### 3 016-3, 93153-5, 1988-01, ####[facility] LABIA [id number] [place] [address] [place] AST [Catalytic activity/Vol] 17 U/L Normal 13-35 [facility] Comment on above: Order Comment: Speci men Type: BLOOD SPECIMENOrdering Facility: [facility] Address: [address] [place] [address] Performed By: #### 3 016-3, , 1988-01, ####[facility] LABIA [id number] [place] [address] [place] Bilirubin [Mass/Vol] 0.4 mg/dL Normal 0.2-1.3 [facility] Comment on above: Order Comment: Speci men Type: BLOOD SPECIMENOrdering Facility: [facility] Address: [address] [place] [address] Performed By: #### 3 016-3, 49864-7, 1988-01, ####[facility] LABIA [id number] [place] [address] [place] Calcium [Mass/Vol] 9.4 mg/dL Normal 8.5-10.2 [facility] Comment on above: Order Comment: Speci men Type: BLOOD SPECIMENOrdering Facility: [facility] Address: [address] [place] [address] Performed By: #### 3 016-3, 16581-8, ####[facility] LABIA [id number] [address] [address] [place] Chloride [Moles/Vol] 99 mmol/L Normal 97-105 [facility] Comment on above: Order Comment: Speci men Type: BLOOD SPECIMENOrdering Facility: [facility] Address: [address] [place] [address] Performed By: #### 3 016-3, , ####[facility] LABIA [id number] [place] [id number] [place] CO2 [Moles/Vol] 24 mmol/L Normal 22-30 [facility] Comment on above: Order Comment: Speci men Type: BLOOD SPECIMENOrdering Facility: [facility] Address: [address] [place] [address] Performed By: #### 3 016-3, , ####[facility] LABIA [id number] [place] [address] [place] Creatinine [Mass/Vol] 0.57 mg/dL Low 0.58-0.96 [facility] Comment on above: Order Comment: Speci men Type: BLOOD SPECIMENOrdering Facility: [facility] Address: [address] [place] [address] Performed By: #### 3 016-3, , ####[facility] [id number] [place] [id number] [place] Creatinine and Glomerular filtration rate.predicted panel (S/P/Bld) 126 mL/min/1.73m??? Normal >=60 [facility] Comment on above: Order Comment: Speci men Type: BLOOD SPECIMENOrdering Facility: [facility] Address: [address] [place] [address] Result Comment: Jessie mated Glomerular Filtration Rate (eGFR) is calculated using the 2020 CKD-EPI creatinine equation. This equation utilizes serum creatinine, sex, and age as parameters. The creatinine assay has traceable calibration to isotope dilution-mass spectrometry. Refer to KDIGO guidelines for clinical interpretation. In patients with unstable renal function, e.g. those with acute kidney injury, the eGFR may not accurately reflect actual GFR. Performed By: #### 3 016-3, , ####[facility] LABIA [id number] [address] [address] [place] Glucose [Mass/Vol] 98 mg/dL Normal 74-99 [facility] Comment on above: Order Comment: Marry french Type: BLOOD SPECIMENOrdering Facility: [facility] Address: [address] [place] [address] Result Comment: The [place] Diabetes Association (ADA) provides guidance for cutoff values for fasting glucose and random glucose. The ADA defines fasting as no caloric intake for at least 8 hours. Fasting plasma glucose results between 100 to 125 mg/dL indicate increased risk for diabetes (prediabetes). Fasting plasma glucose results greater than or equal to 126 mg/dL meet the criteria for diagnosis of diabetes. In the absence of unequivocal hyperglycemia, results should be confirmed by repeat testing. In a patient with classic symptoms of hyperglycemia or hyperglycemic crisis, random plasma glucose results greater than or equal to 200 mg/dL meet the criteria for diagnosis of diabetes. Reference: Standards of Medical Care in Diabetes 2016, [place] Diabetes Association. Diabetes Care. 2016.39(Suppl 1). Performed By: #### 3 016-3, , ####[facility] [id number] [place] [id number] [place] Potassium [Moles/Vol] 4.3 mmol/L Normal 3.7-5.1 [facility] Comment on above: Order Comment: Marry french Type: BLOOD SPECIMENOrdering Facility: [facility] Address: [address] [place] [address] Performed By: #### 3 016-3, , ####[facility] LABIA [id number] [address] [address] [place] Protein [Mass/Vol] 8.2 g/dL High 6.3-8.0 [facility] Comment on above: Order Comment: Speci men Type: BLOOD SPECIMENOrdering Facility: [facility] Address: [address] [place] [address] Performed By: #### 3 016-3, , ####[facility] LABIA [id number] [place] [address] [place] Sodium [Moles/Vol] 135 mmol/L Low 136-144 [facility] Comment on above: Order Comment: Speci men Type: BLOOD SPECIMENOrdering Facility: [facility] Address: [address] [place] [address] Performed By: #### 3 016-3, , ####[facility] [id number] [place] [address] [place] Urea nitrogen [Mass/Vol] 12 mg/dL Normal 7-21 [facility] Comment on above: Order Comment: Speci men Type: BLOOD SPECIMENOrdering Facility: [facility] Address: [address] [place] [address] Performed By: #### 3 016-3, , ####[facility] LABIA [id number] [place] [id number] [place] HbA1c (Bld)on 12-09-2023 Average glucose Estimated from glycated hemoglobin (Bld) [Mass/Vol] 137 mg/dL Normal [facility] Comment on above: Order Comment: Speci men Type: BLOOD SPECIMENOrdering Facility: [facility] Address: [address] [place] [address] Result Comment: eAG: (Estimated average glucose) is a calculated value from HgbA1c and is inbound sales representative of the average blood glucose level in the last 2-3 month period. Performed By: #### 5 5454-3 ####[facility] LABCLIA [id number] [place] [address] [place] HbA1c (Bld) [Mass fraction] 6.4 % High 4.3-5.6 [facility] Comment on above: Order Comment: Marry french Type: BLOOD SPECIMENOrdering Facility: [facility] Address: [address] [place] [address] Result Comment: [place] Diabetes Association guidelines indicate that patients with HgbA1c in the range 5.7-6.4% are at increased risk for development of diabetes, and intervention by lifestyle modification may be beneficial. HgbA1c greater or equal to 6.5% is considered diagnostic of diabetes. Performed By: #### 5 5454-3 ####[facility] LABIA [id number] [place] [address] [place] Lipid 1996 panelon 4 Cholesterol [Mass/Vol] 179 mg/dL Normal <200 [facility] Comment on above: Order Comment: Marry french Type: BLOOD SPECIMENOrdering Facility: [facility] Address: [address] [place] [address] Result Comment: <200 mg/dL, Desirable 200-239 mg/dL, Borderline high >239 mg/dL, High Performed By: #### 3 016-3, 16657-2, 1988-01, 75695-0 ####[facility] LABIA [id number] [address] [place] Cholesterol in HDL [Mass/Vol] 41 mg/dL Normal >39 [facility] Comment on above: Order Comment: Marry french Type: BLOOD SPECIMENOrdering Facility: [facility] Address: [address] [place] [address] Result Comment: 40-5 9 mg/dL, Acceptable >59 mg/dL, High: Negative risk factor for coronary heart disease <40 mg/dL, Low: Positive risk factor for coronary heart disease Performed By: #### 3 016-3, , ####[facility] LABCLIA [id number] [place] [address] [place] Cholesterol in LDL [Mass/Vol] 113 mg/dL High <100 [facility] Comment on above: Order Comment: Astoni men Type: BLOOD SPECIMENOrdering Facility: [facility] Address: [address] [place] [address] Result Comment: <100 mg/dL, Optimal 100-129 mg/dL, Near optimal/above optimal 130-159 mg/dL, Borderline high 160-189 mg/dL, High >189 mg/dL, Very high Secondary prevention optimal LDL Cholesterol levels are recommended to be < 70 mg/dL Performed By: #### 3 016-3, , ####[facility] LABIA [id number] [address] [place] Cholesterol in LDL/Cholesterol in HDL [Mass ratio] 2.76 {ratio} High <2.54 [facility] Comment on above: Order Comment: Marry french Type: BLOOD SPECIMENOrdering Facility: [facility] Address: [address] [place] [address] Result Comment: Refe rence: 1. National Cholesterol Education Program ATP III Guideline At-A-Glance Quick Desk Reference: National Heart, Lung, and Blood [place]. National Institutes of Health. 2001: NIH Publication No. 01-3305. 2. An International Atherosclerosis Society position paper: global recommendations for the management of dyslipidemia: executive summary, Atherosclerosis. 2014: 232(2):410-413. Performed By: #### 3 016-3, , ####[facility] LABCLIA [id number] [place] [address] [place] Cholesterol in VLDL [Mass/Vol] 25 mg/dL Normal <30 [facility] Comment on above: Order Comment: Marry men Type: BLOOD SPECIMENOrdering Facility: [facility] Address: [address] [place] [address] Performed By: #### 3 016-3, , 1988-01, ####[facility] LABCLIA [id number] [address] [address] [place] Cholesterol non HDL [Mass/Vol] 138 mg/dL High <130 [facility] Comment on above: Order Comment: Speci men Type: BLOOD SPECIMENOrdering Facility: [facility] Address: [address] [place] [address] Result Comment: <130 mg/dL, Optimal 130-159 mg/dL, Near optimal/above optimal 160-189 mg/dL, Borderline high 190-219 mg/dL, High >219 mg/dL, Very high Secondary prevention optimal non HDL Cholesterol levels are recommended to be <100 mg/dL Performed By: #### 3 016-3, , 1988-01, ####[facility] LABCLIA [id number] [address] [address] [place] Cholesterol.total/C holesterol in HDL [Mass ratio] 4.37 {ratio} Normal <5.10 [facility] Comment on above: Order Comment: Speci men Type: BLOOD SPECIMENOrdering Facility: [facility] Address: [address] [place] [address] Performed By: #### 3 016-3, , ####[facility] LABCLIA [id number] [address] [address] [place] FASTING TIME 12 hrs Normal [facility] Comment on above: Order Comment: Speci men Type: BLOOD SPECIMENOrdering Facility: [facility] Address: [address] [place] [address] Performed By: #### 3 016-3, , ####[facility] LABCLIA [id number] [address] [address] [place] Triglyceride [Mass/Vol] 124 mg/dL Normal <150 [facility] Comment on above: Order Comment: Speci men Type: BLOOD SPECIMENOrdering Facility: [facility] Address: [address] [place] [address] Result Comment: <150 mg/dL, Normal 150-199 mg/dL, Borderline high 200-499 mg/dL, High >499 mg/dL, Very high Performed By: #### 3 016-3, 22625-5, 1988-01, ####[facility] LABCLIA [id number] [place] [address] [place] TSH SerPl-aCncon 12-09-2023 TSH Qn 3.480 m[IU]/L Normal 0.270-4.200 [facility] Comment on above: Order Comment: Speci manolo Type: BLOOD SPECIMENOrdering Facility: [facility] Address: [address] [place] [address] Result Comment: If t he patient is , TSH reference range varies by gestational period: First Trimester (weeks 9-12): 0.180-2.990 mIU/L Second Trimester: 0.110-3.980 mIU/L Third Trimester: 0.480-4.710 mIU/L Hamilton Sanchez et al. A Practical Approach for the Verifications and Determination of Site- and Trimester-Specific Reference Intervals for Thyroid Function tests in . Thyroid, 2019:29:3:412-420. Gurpreet E, et al. 2017 Guidelines of the [place] Thyroid Association for the Diagnosis and Management of Thyroid Disease during and the . Thyroid, 2017:27:3:315-389. Performed By: #### 3 016-3, 68206-2, 1988-01, ####[facility] LABCLIA [id number] [place] [address] [place] Vit B12 SerPl-mCncon 024 Cobalamin (Vitamin B12) [Mass/Vol] 281 pg/mL Normal 232-1245 [facility] Comment on above: Order Comment: Speci men Type: BLOOD SPECIMENOrdering Facility: [facility] Address: [address] [place] [address] Performed By: #### 2 132-9 ####[facility] LABCLIA [id number] [facility] [place] [address] [place] XR Knee - right 4 Viewson IMPRESSION: No radiographic evidence of acute osseous abnormality. Medical Surgical Tech: ATTILA Transcribe Date/Time: Jun 20 2022 3:10P Dictated by : GUANAKITO WINTERS MD This examination was interpreted and the report reviewed and electronically signed by: GUANAKITO WINTERS MD on Jun 20 2022 3:11PM [facility] DIVISION OF RADIOLOGY * * *Final Report* * * DATE OF EXAM: Jun 20 2022 12:46PM [facility] 5203 - XR KNEE 4V AP/PA BOTH+LAT/JESS RT / PROCEDURE REASON: Acute pain of right knee * * * * Physician Interpretation * * * * CLINICAL INDICATION: Knee pain TECHNIQUE: AP/PA/merchant radiographs of both knees and lateral radiograph of the right knee COMPARISON: None FINDINGS: Right knee: No suprapatellar joint effusion. No acute fracture or dislocation. Joint spaces preserved. Left knee: No acute fracture or dislocation. Joint spaces preserved. DIVISION [facility]Y [facility] * * *Final Report* * * DATE OF EXAM: Jun 20 2022 12:46PM WOX 5203 - XR KNEE 4V AP/PA BOTH+LAT/JESS RT / PROCEDURE REASON: Acute pain of right knee * * * * Physician Interpretation * * * * CLINICAL INDICATION: Knee pain TECHNIQUE: AP/PA/merchant radiographs of both knees and lateral radiograph of the right knee COMPARISON: None FINDINGS: Right knee: No suprapatellar joint effusion. No acute fracture or dislocation. Joint spaces preserved. Left knee: No acute fracture or dislocation. Joint spaces preserved. IMPRESSION IMPRESSION: No radiographic evidence of acute osseous abnormality. Medical Surgical Tech[facility] Transcribe Date/Time: Jun 20 2022 3:10P Dictated by : GUANAKITO WINTERS MD This examination was interpreted and the report reviewed and electronically signed by: GUANAKITO WINTERS MD on Jun 20 2022 3:11PM EST [facility] Radiology Study observation (narrative) [facility] XR Knee - right 4 ViewsOrder ed By: Ccf Provider on 06-20-2022 [facility] Progress Noteson 01-26-2021 Gi Asst Authentication Interface Message Text Pt's risk score is 63%. Problem: MARY ANNE Follow-Up Call where Pt indicated feeling a lost of interest in things and/or sad, hopeless, anxious, and empty. Assessment: Unable to reach Pt on 01/24/2021 and 01/25/2021. Plan: Unable to reach Pt. No further SW Interventions at this time. Jacques Loya, STRUCTURAL ENGINEER, BULK SEALER OPERATOR Outpatient SW for [facility] AND [facility]. ([phone]; [phone]). Normal [facility] [employer] [facility] Progress Noteson 01-24-2021 Gi Asst Authentication Interface Message Text ACUTE CARE SURGERY CLINIC NOTE Phone numbers Preferred Documentation: Mode: Telephone Patient Patient Work Phone: Patient Cell Preferred phone: [phone] Consent: I confirmed patient understanding of the risks and benefits of telehealth visits and obtained consent to proceed with the telehealth visit. Location of Patient: Home of patient Ms. Loyola is a 25-year-old woman with a history of asthma, PCOS, back pain, obesity (BMI 64) who presented with acute cholecystitis on 01/10/2021. She underwent a laparoscopic cholecystectomy on 01/10/[address] Maravilla, which was notable for purulent ascites. She completed a 4 day course of Zosyn for pansensitive Enterococcus. She was discharged in good condition on 01/15/2021. Since discharge patient states she is doing well. Denies nausea/vomiting, abdominal pain, fever/chills or drainage from wound. States there is mild redness in the epigastric wound however she feels its likely irritation. Denies purulent drainage from any incision. O/E None due to telephone visit Path: Acute and chronic cholecystitis with cholelithiasis. Plan: Patient doing well overall. Per patient report no concern for wound infection. Tolerating PO and pain controlled/resolved Path discussed with patient No further surgical intervention needed No restrictions from lifting anyting >15 pounds in another 1 week F/u PRN with surgery Jonathan Iyer MD, FACS Acute Care Surgery Normal [facility] Gi Asst Authentication Interface Message Text ACUTE CARE SURGERY CLINIC NOTE Ms. Loyola is a 25-year-old woman with a history of asthma, PCOS, back pain, obesity (BMI 64) who presented with acute cholecystitis on 01/10/2021. She underwent a laparoscopic cholecystectomy on 01/10/[address] Maravilla, which was notable for purulent ascites. She completed a 4 day course of Zosyn for pansensitive Enterococcus. She was discharged in good condition on 01/15/2021. Normal [facility] BASIC METABOLIC PANELon - Anion gap [Moles/Vol] 15 mmol/L High 5-13 [facility] Comment on above: Performed By: #### C H8, MG #### [facility] [address] [place] [address], Calcium [Mass/Vol] 8.2 mg/dL Low 8.4-10.4 The [facility] Comment on above: Performed By: #### C H8, MG #### [facility] [address] [place] [address], Chloride [Moles/Vol] 98 mmol/L Normal 97-111 [facility] Comment on above: Performed By: #### C H8, MG #### [facility] [address] [place] [address], CO2 [Moles/Vol] 28 mmol/L Normal 21-30 The [facility] Comment on above: Performed By: #### C H8, MG #### [facility] [address] [place] [address], Creatinine [Mass/Vol] 0.51 mg/dL Normal 0.50-1.10 [facility] Comment on above: Performed By: #### C H8, MG #### [facility] [address] [place] [address], ESTIMATED GFR (CKD-EPI) 132 mL/min/1.73sqm Normal >=60 [facility] Comment on above: Performed By: #### Simi Lemus8, MG #### [facility] [address] [place] [address], Glucose [Mass/Vol] 89 mg/dL Normal 68-110 The [facility] Comment on above: Performed By: #### Simi Lemus8, MG #### [facility] [address] [place] [address], Potassium [Moles/Vol] 3.5 mmol/L Normal 3.3-5.3 The [facility] Comment on above: Performed By: #### Simi Lemus8, MG #### [facility] [address] [place] [address], Sodium [Moles/Vol] 137 mmol/L Normal 135-148 The [facility] Comment on above: Performed By: #### Simi Ivey, MG #### [facility] [address] [place] [address], Urea nitrogen [Mass/Vol] 3 mg/dL Low 8-22 The [facility] Comment on above: Performed By: #### Simi Ivey, MG #### [facility] [address] [place] [address], CBC WITH DIFFERENTIALon 12-29 Basophils (Bld) [#/Vol] 0.18 10*3/uL Normal 0.00-0.20 The [facility] Comment on above: Performed By: #### Simi BCDSAT ####[facility] [id number] [place], [place], Basophils/100 WBC (Bld) 1.7 % Normal <=1.9 The [facility] Comment on above: Performed By: #### Simi SCHUSTERAT ####[facility] [id number] [place], [place], Eosinophils (Bld) [#/Vol] 0.16 10*3/uL Normal 0.00-0.70 [facility] Comment on above: Performed By: #### Simi OLGUINDSAT ####[facility] [id number] [place], [place], Eosinophils/100 WBC (Bld) 1.5 % Normal 0.1-4.0 [facility] Comment on above: Performed By: #### C CLAUDSAT ####[facility] [id number] [place], [place], Erythrocyte distribution width (RBC) [Ratio] 15.0 % High 11.5-14.5 [facility] Comment on above: Performed By: #### C MARIELYAT ####[facility] [id number] [place], [place], Hematocrit (Bld) [Volume fraction] 28.0 % Low 36.0-46.0 [facility] Comment on above: Performed By: #### C MARIELYAT ####S PATHOLOGY [id number] [place], [place], Hemoglobin (Bld) [Mass/Vol] 9.4 g/dL Low 12.0-15.0 [facility] Comment on above: Performed By: #### C MARIELYAT ####[facility] [id number] [place] [address], Lymphocytes (Bld) [#/Vol] 2.15 10*3/uL Normal 1.00-4.80 [facility] Comment on above: Performed By: #### C BCHEIDIAT ####[facility] [id number] [place], [place], Lymphocytes/100 WBC (Bld) 20.1 % Low 24.0-44.0 The [facility] Comment on above: Performed By: #### C BCDSAT ####S PATHOLOGY [id number] [place], [place], MCH (RBC) [Entitic mass] 27.2 pg Normal 26.0-34.0 [facility] Comment on above: Performed By: #### C BCDSAT ####S PATHOLOGY [id number] [place] [address], MCHC (RBC) [Mass/Vol] 33.5 g/dL Normal 32.0-35.9 [facility] Comment on above: Performed By: #### C CLAUDSAT ####[facility] [id number] [place], [place], MCV (RBC) [Entitic vol] 81 fL Normal 80-100 The [facility] Comment on above: Performed By: #### Simi SCHUSTERAT ####[facility] [id number] [place], [place], MONOCYTE DISTRIBUTION WIDTH 22 High <=20 The [facility] Comment on above: Performed By: #### Simi SCHUSTERAT ####[facility] [id number] [place], [place], Monocytes (Bld) [#/Vol] 0.81 10*3/uL Normal 0.20-1.00 [facility] Comment on above: Performed By: #### Simi SCHUSTERAT ####[facility] [id number] [place], [place], Monocytes/100 WBC (Bld) 7.6 % Normal 2.0-11.0 [facility] Comment on above: Performed By: #### Simi SCHUSTERAT ####[facility] [id number] [place], [place], Neutrophils (Bld) [#/Vol] 7.40 10*3/uL Normal 1.50-8.00 The [facility] Comment on above: Performed By: #### Simi SCHUSTERAT ####[facility] [id number] [place], [place], Neutrophils/100 WBC (Bld) 69.2 % Normal 31.0-76.0 The [facility] Comment on above: Performed By: #### C MARIELYAT ####[facility] [id number] [place], [place], Platelet mean volume (Bld) [Entitic vol] 7.3 fL Low 7.5-11.2 The [facility] Comment on above: Performed By: #### C BCHEIDIAT ####[facility] [id number] [place], [place], Platelets (Bld) [#/Vol] 462 10*3/uL High 150-400 [facility] Comment on above: Performed By: #### C BCDSAT ####[facility] [id number] [place], [place], RBC (Bld) [#/Vol] 3.44 10*6/uL Low 4.00-5.20 [facility] Comment on above: Performed By: #### C BCDSAT ####[facility] [id number] [place], [place], WBC (Bld) [#/Vol] 10.7 10*3/uL Normal 4.5-11.5 The [facility] Comment on above: Performed By: #### C BCDSAT ####[facility] [id number] [place], [place], Care Plan Noteon 01-15-2021 Gi Asst Authentication Interface Message Text Problem: Routine Care: Goal: Patient care will be managed and maintained throughout hospital stay per unit specific routine care procedure Outcome: Adequate for Discharge Problem: Safety: Goal: Patient will remain free of falls during hospital stay Outcome: Adequate for Discharge Goal: Free from injury during hospitalization Outcome: Adequate for Discharge Problem: Acute Pain: Goal: Ability to identify pain intensity on a pain scale and rate it consistently will be achieved and maintained Outcome: Adequate for Discharge Goal: Understanding of proper administration and use of medicines will be achieved Outcome: Adequate for Discharge Goal: Acceptable level of pain which allows the patient to achieve functional outcome goals Outcome: Adequate for Discharge Problem: VTE Prophylaxis: Goal: Will be free of DVT Outcome: Adequate for Discharge Problem: Discharge Planning: Goal: Discharge needs of the adult patient will be met Outcome: Adequate for Discharge Problem: Impaired Skin Integrity: Goal: Acheive wound healing without signs and symptoms of infection Outcome: Adequate for Discharge Discharge note Patient discharged to Home at 1630 via wheelchair. Discharge instructions explained and copy provided to patient/caregiver. Prescriptions explained and provided to patient/caregiver. Patient/caregiver verbalized understanding of discharge instructions and prescription information. Belongings/personal properties checked and sent with patient. Patient/caregiver denied any further questions. Mable Martínez, MSN, CMSRN Normal [facility] [facility] Consultson 01-15-2021 Gi Asst Authentication Interface Message Text Physical Therapy attempt (9am) Attempted to treat patient this AM. Patient tearfully declined to participate at this time due to pain and lack of sleep. Informed patient of benefit of mobility and trial of stairs to ensure safety to return home (she reports she is being DC today). Stated she will be safe to clear one step while using her railing at home. Discussed continued plan s/p DC; patient remains agreeable to initially DC planning (home PT). 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 No evidence of significant desaturations or sawtooth oscillations. Additional findings include the following: The average O2 saturation was 95.3%. The 3% oxygen desaturation index (LOLA 3% desaturations for events >= 10 seconds) was 9 per hour. RECOMMENDATIONS: With the current O2 therapy (2 Lpm by NC), patient was noted to have mildly elevated desaturation index. However, O2 supplementation will mask any findings of sleep disordered breathing on oximetry, and a full sleep evaluation is recommended. Dk Chaidez MD Division of Pulmonary, Critical Care and Sleep Medicine [facility] Normal [facility] [employer] [facility] BASIC METABOLIC PANELon 12-29 Anion gap [Moles/Vol] 15 mmol/L High 5-13 [facility] Comment on above: Performed By: #### C H8, MG #### [facility] [address] [place], [place], Calcium [Mass/Vol] 7.8 mg/dL Low 8.4-10.4 The [facility] Comment on above: Performed By: #### Simi Ivey, MG #### [facility] [address] [place] [address], Chloride [Moles/Vol] 99 mmol/L Normal 97-111 [facility] Comment on above: Performed By: #### Simi Ivey, MG #### [facility] [address] [place] [address], CO2 [Moles/Vol] 26 mmol/L Normal 21-30 The [facility] Comment on above: Performed By: #### Simi Ivey, MG #### [facility] [address] [place] [address], Creatinine [Mass/Vol] 0.67 mg/dL Normal 0.50-1.10 [facility] Comment on above: Performed By: #### Simi Ivey, MG #### S [facility] [address] [place] [address], ESTIMATED GFR (CKD-EPI) 121 mL/min/1.73sqm Normal >=60 [facility] Comment on above: Performed By: #### Simi Ivey, MG #### [facility] [address] [place] [address], Glucose [Mass/Vol] 102 mg/dL Normal 68-110 The [facility] Comment on above: Performed By: #### Simi Ivey, MG #### [facility] [address] [place] [address], Potassium [Moles/Vol] 3.6 mmol/L Normal 3.3-5.3 [facility] Comment on above: Performed By: #### Siim Ivey, MG #### [facility] [address] [place] [address], Sodium [Moles/Vol] 136 mmol/L Normal 135-148 The [facility] Comment on above: Performed By: #### Simi Ivey, MG #### [facility] [address] [place] [address], Urea nitrogen [Mass/Vol] 8 mg/dL Normal 8-22 [facility] Comment on above: Performed By: #### Simi HBrody, MG #### [facility] [address] [place] [address], CBC WITH DIFFERENTIALon 12-29 Basophils (Bld) [#/Vol] 0.06 10*3/uL Normal 0.00-0.20 [facility] Comment on above: Performed By: #### Simi HBrody, MG #### [facility] [address] [place] [address], Basophils/100 WBC (Bld) 0.6 % Normal <=1.9 [facility] Comment on above: Performed By: #### Simi HBrody, MG #### [facility] [address] [place] [address], Eosinophils (Bld) [#/Vol] 0.31 10*3/uL Normal 0.00-0.70 [facility] Comment on above: Performed By: #### Simi HBrody, MG #### [facility] [address] [place] [address], Eosinophils/100 WBC (Bld) 2.8 % Normal 0.1-4.0 [facility] Comment on above: Performed By: #### Simi HBrody, MG #### [facility] [address] [place] [address], Erythrocyte distribution width (RBC) [Ratio] 15.3 % High 11.5-14.5 [facility] Comment on above: Performed By: ###Indu Belcher H8, MG #### [facility] [address] [place] [address], Hematocrit (Bld) [Volume fraction] 28.5 % Low 36.0-46.0 The [facility] Comment on above: Performed By: ###Indu Belcher H8, MG #### S [facility] [address] [place] [address], Hemoglobin (Bld) [Mass/Vol] 9.5 g/dL Low 12.0-15.0 [facility] Comment on above: Performed By: #### Simi H8, MG #### S [facility] [address] [place] [address], Lymphocytes (Bld) [#/Vol] 1.98 10*3/uL Normal 1.00-4.80 [facility] Comment on above: Performed By: #### Simi H8, MG #### [facility] [address] [place] [address], Lymphocytes/100 WBC (Bld) 18.2 % Low 24.0-44.0 [facility] Comment on above: Performed By: #### Simi H8, MG #### [facility] [address] [place] [address], MCH (RBC) [Entitic mass] 27.3 pg Normal 26.0-34.0 [facility] Comment on above: Performed By: #### Simi HBrody, MG #### [facility] [address] [place] [address], MCHC (RBC) [Mass/Vol] 33.3 g/dL Normal 32.0-35.9 [facility] Comment on above: Performed By: #### Simi H8, MG #### [facility] [address] [place] [address], MCV (RBC) [Entitic vol] 82 fL Normal 80-100 [facility] Comment on above: Performed By: #### Simi H8, MG #### [facility] [address] [place] [address], MONOCYTE DISTRIBUTION WIDTH 24 High <=20 [facility] Comment on above: Performed By: #### Simi H8, MG #### S [facility] [address] [place] [address], Monocytes (Bld) [#/Vol] 0.72 10*3/uL Normal 0.20-1.00 [facility] Comment on above: Performed By: #### Simi H8, MG #### S [facility] [address] [place] [address], Monocytes/100 WBC (Bld) 6.6 % Normal 2.0-11.0 [facility] Comment on above: Performed By: #### C H8, MG #### [facility] [address] [place], [place], Neutrophils (Bld) [#/Vol] 7.85 10*3/uL Normal 1.50-8.00 [facility] Comment on above: Performed By: #### C H8, MG #### [facility] [address] [place], [place], Neutrophils/100 WBC (Bld) 71.9 % Normal 31.0-76.0 [facility] Comment on above: Performed By: #### C H8, MG #### [facility] [address] [place], [place], Platelet mean volume (Bld) [Entitic vol] 7.6 fL Normal 7.5-11.2 [facility] Comment on above: Performed By: #### C H8, MG #### S [facility] [address] [place], [place], Platelets (Bld) [#/Vol] 473 10*3/uL High 150-400 [facility] Comment on above: Performed By: #### C H8, MG #### [facility] [address] [place], [place], RBC (Bld) [#/Vol] 3.48 10*6/uL Low 4.00-5.20 [facility] Comment on above: Performed By: #### C H8, MG #### S [facility] [address] [place], [place], WBC (Bld) [#/Vol] 10.9 10*3/uL Normal 4.5-11.5 [facility] Comment on above: Performed By: #### C H8, MG #### [facility] [address] [place], [place], Care Plan Noteon 01-14-2021 Gi Asst Authentication Interface Message Text Problem: Safety: Goal: Patient will remain free of falls during hospital stay Outcome: Progressing Goal: Free from injury during hospitalization Outcome: Progressing Problem: Routine Care: Goal: Patient care will be managed and maintained throughout hospital stay per unit specific routine care procedure Outcome: Progressing Problem: Acute Pain: Goal: Ability to identify pain intensity on a pain scale and rate it consistently will be achieved and maintained Outcome: Progressing Goal: Understanding of proper administration and use of medicines will be achieved Outcome: Progressing Goal: Acceptable level of pain which allows the patient to achieve functional outcome goals Outcome: Progressing Problem: VTE Prophylaxis: Goal: Will be free of DVT Outcome: Progressing Problem: Discharge Planning: Goal: Discharge needs of the adult patient will be met Outcome: Progressing Problem: Impaired Skin Integrity: Goal: Acheive wound healing without signs and symptoms of infection Outcome: Progressing Normal [facility] [facility] Gi Asst Authentication Interface Message Text Problem: Routine Care: Goal: Patient care will be managed and maintained throughout hospital stay per unit specific routine care procedure Outcome: Progressing Problem: Safety: Goal: Patient will remain free of falls during hospital stay Outcome: Progressing Goal: Free from injury during hospitalization Outcome: Progressing Problem: Acute Pain: Goal: Ability to identify pain intensity on a pain scale and rate it consistently will be achieved and maintained Outcome: Progressing Goal: Understanding of proper administration and use of medicines will be achieved Outcome: Progressing Goal: Acceptable level of pain which allows the patient to achieve functional outcome goals Outcome: Progressing Problem: VTE Prophylaxis: Goal: Will be free of DVT Outcome: Progressing Problem: Discharge Planning: Goal: Discharge needs of the adult patient will be met Outcome: Progressing Problem: Impaired Skin Integrity: Goal: Acheive wound healing without signs and symptoms of infection Outcome: Progressing Normal [facility] [employer] [facility] Consultson 01-14-2021 Gi Asst Authentication Interface Message Text Physical Therapy Attempted to see pt for PT late morning, pt politely declines d/t falling asleep. Pt is agreeable to PT this afternoon. Will re attempt if schedule allows. Cont per BARB Fletcher PROPERTY MAINTENANCE TECHNICIAN Addendum @ 1405: Pt sitting bedside eating lunch. Pt politely declines second PT attempt. Pt states she is d/cing home tomorrow and does not feel she needs to work with PT. Pt states I have the walking down pat Pt states feels confident is safe d/c home. RW was delivered yesterday and pt's family member took it home so it will be in the car for d/c pick up operator. Encouraged pt to ambulate w/ staff throughout the day to promote endurance and mobility. Will cont per BARB Fletcher PTA Normal [facility] MAGNESIUMon 01-14-2021 Magnesium [Mass/Vol] 2.1 mg/dL Normal 1.6-2.8 [facility] Comment on above: Performed By: #### Simi Ivey, MG #### S [facility] [address] [place] [address], ANTI FXA-LMW HEPARINon 01-13 ANTI FXA-LMW HEPARIN ASSAY 0.14 IU/mL Normal [facility] [place] Comment on above: Order Comment: The r ecommended therapeutic range for treatment of thrombosis with Low Molecular Weight Heparin is 0.5 - 1.0 IU/mLThe recommended range for VTE prophylaxis with Low Molecular Weight Heparin is 0.2 - 0.4 IU/mL. Performed By: #### Simi Ivey, MG #### S [facility] [address] [place] [address], BASIC METABOLIC PANELon 12-29 Anion gap [Moles/Vol] 14 mmol/L High 5-13 [facility] [place] Comment on above: Performed By: #### Simi Ivey, MG #### [facility] [address] [place] [address], Calcium [Mass/Vol] 7.8 mg/dL Low 8.4-10.4 [facility] Comment on above: Performed By: #### Simi Ivey, MG #### [facility] [address] [place] [address], Chloride [Moles/Vol] 97 mmol/L Normal 97-111 [facility] Comment on above: Performed By: #### Simi Ivey, MG #### [facility] [address] [place] [address], CO2 [Moles/Vol] 28 mmol/L Normal 21-30 The [facility] Comment on above: Performed By: #### Simi Ivey, MG #### [facility] [address] [place] [address], Creatinine [Mass/Vol] 0.67 mg/dL Normal 0.50-1.10 [facility] [place] Comment on above: Performed By: #### Simi Ivey, MG #### [facility] [address] [place] [address], ESTIMATED GFR (CKD-EPI) 121 mL/min/1.73sqm Normal >=60 [facility] Comment on above: Performed By: #### Simi Ivey, MG #### [facility] [address] [place] [address], Glucose [Mass/Vol] 93 mg/dL Normal 68-110 The [facility] Comment on above: Performed By: #### Simi Ivey, MG #### [facility] [address] [place] [address], Potassium [Moles/Vol] 3.3 mmol/L Normal 3.3-5.3 [facility] Comment on above: Performed By: #### Simi Ivey, MG #### [facility] [address] [place] [address], Sodium [Moles/Vol] 136 mmol/L Normal 135-148 [facility] Comment on above: Performed By: #### Simi Ivey, MG #### [facility] [address] [place] [address], Urea nitrogen [Mass/Vol] 8 mg/dL Normal 8-22 [facility] Comment on above: Performed By: #### Simi Ivey, MG #### [facility] [address] [place] [address], CBC WITH DIFFERENTIALon 12-29 Basophils (Bld) [#/Vol] 0.04 10*3/uL Normal 0.00-0.20 [facility] Comment on above: Performed By: #### Simi Ivey, MG #### [facility] [address] [place] [address], Basophils/100 WBC (Bld) 0.3 % Normal <=1.9 [facility] Comment on above: Performed By: #### Simi Ivey, MG #### [facility] [address] [place] [address], Eosinophils (Bld) [#/Vol] 0.30 10*3/uL Normal 0.00-0.70 [facility] Comment on above: Performed By: ###Indu Ivey, MG #### [facility] [address] [place] [address], Eosinophils/100 WBC (Bld) 2.8 % Normal 0.1-4.0 [facility] Comment on above: Performed By: #### Simi H8, MG #### [facility] PATH[facility] [address] [place] [address], Erythrocyte distribution width (RBC) [Ratio] 15.3 % High 11.5-14.5 [facility] Comment on above: Performed By: #### Simi H8, MG #### [facility] [address] [place] [address], Hematocrit (Bld) [Volume fraction] 30.1 % Low 36.0-46.0 [facility] Comment on above: Performed By: #### Simi H8, MG #### [facility] [address] [place] [address], Hemoglobin (Bld) [Mass/Vol] 9.8 g/dL Low 12.0-15.0 [facility] Comment on above: Performed By: #### Simi H8, MG #### [facility] [address] [place] [address], Lymphocytes (Bld) [#/Vol] 2.08 10*3/uL Normal 1.00-4.80 [facility] Comment on above: Performed By: #### Simi H8, MG #### [facility] [address] [place] [address], Lymphocytes/100 WBC (Bld) 19.7 % Low 24.0-44.0 [facility] Comment on above: Performed By: #### Simi H8, MG #### [facility] [address] [place] [address], MCH (RBC) [Entitic mass] 26.9 pg Normal 26.0-34.0 [facility] Comment on above: Performed By: #### Simi H8, MG #### [facility] [address] [place] [address], MCHC (RBC) [Mass/Vol] 32.7 g/dL Normal 32.0-35.9 [facility] Comment on above: Performed By: #### C H8, MG #### [facility] [address] [place], [place], MCV (RBC) [Entitic vol] 82 fL Normal 80-100 [facility] [place] Comment on above: Performed By: #### C H8, MG #### [facility] [address] [place], [place], MONOCYTE DISTRIBUTION WIDTH 19 Normal <=20 [facility] Comment on above: Performed By: #### C H8, MG #### [facility] [address] [place], [place], Monocytes (Bld) [#/Vol] 0.73 10*3/uL Normal 0.20-1.00 [facility] Comment on above: Performed By: #### C H8, MG #### [facility] [address] [place] [address], Monocytes/100 WBC (Bld) 6.9 % Normal 2.0-11.0 [facility] Comment on above: Performed By: #### C H8, MG #### [facility] [address] [place] [address], Neutrophils (Bld) [#/Vol] 7.42 10*3/uL Normal 1.50-8.00 [facility] [place] Comment on above: Performed By: #### C H8, MG #### [facility] [address] [place], [place], Neutrophils/100 WBC (Bld) 70.2 % Normal 31.0-76.0 [facility] Comment on above: Performed By: #### C H8, MG #### [facility] [address] [place], [place], Platelet mean volume (Bld) [Entitic vol] 7.6 fL Normal 7.5-11.2 [facility] [place] Comment on above: Performed By: #### C H8, MG #### [facility] [address] [place], [place], Platelets (Bld) [#/Vol] 400 10*3/uL Normal 150-400 [facility] Comment on above: Performed By: #### Simi Ivey, MG #### [facility] [address] [place], [place], RBC (Bld) [#/Vol] 3.66 10*6/uL Low 4.00-5.20 [facility] Comment on above: Performed By: #### Simi Lemus8, MG #### [facility] [address] [place], [place], WBC (Bld) [#/Vol] 10.6 10*3/uL Normal 4.5-11.5 [facility] Comment on above: Performed By: #### Simi Ivey, MG #### [facility] [address] [place], [place], Care Plan Noteon 01-13-2021 Gi Asst Authentication Interface Message Text Problem: Routine Care: Goal: Patient care will be managed and maintained throughout hospital stay per unit specific routine care procedure Outcome: Progressing Problem: Safety: Goal: Patient will remain free of falls during hospital stay Outcome: Progressing Note: Side rails in place, call light within reach Goal: Free from injury during hospitalization Outcome: Progressing Problem: Acute Pain: Goal: Ability to identify pain intensity on a pain scale and rate it consistently will be achieved and maintained Outcome: Progressing Goal: Understanding of proper administration and use of medicines will be achieved Outcome: Progressing Goal: Acceptable level of pain which allows the patient to achieve functional outcome goals Outcome: Progressing Problem: VTE Prophylaxis: Goal: Will be free of DVT Outcome: Progressing Problem: Discharge Planning: Goal: Discharge needs of the adult patient will be met Outcome: Progressing Problem: Impaired Skin Integrity: Goal: Acheive wound healing without signs and symptoms of infection Outcome: Progressing Normal [facility] MAGNESIUMon 01-13-2021 Magnesium [Mass/Vol] 2.0 mg/dL Normal 1.6-2.8 [facility] Comment on above: Performed By: #### Simi Ivey, MG #### [facility] [address] [place], [place], BASIC METABOLIC PANELon 12-29 Anion gap [Moles/Vol] 14 mmol/L High 5-13 [facility] Comment on above: Performed By: #### C H8, MG #### [facility] [address] [place] [address], Calcium [Mass/Vol] 8.1 mg/dL Low 8.4-10.4 [facility] Comment on above: Performed By: #### Simi Lemus8, MG #### [facility] [address] [place] [address], Chloride [Moles/Vol] 100 mmol/L Normal 97-111 [facility] [place] Comment on above: Performed By: #### Simi Lemus8, MG #### [facility] [address] [place] [address], CO2 [Moles/Vol] 28 mmol/L Normal 21-30 [facility] Comment on above: Performed By: #### Simi Lemus8, MG #### [facility] [address] [place] [address], Creatinine [Mass/Vol] 0.68 mg/dL Normal 0.50-1.10 [facility] [place] Comment on above: Performed By: #### Simi Ivey, MG #### [facility] [address] [place] [address], ESTIMATED GFR (CKD-EPI) 120 mL/min/1.73sqm Normal >=60 [facility] Comment on above: Performed By: #### Simi H8, MG #### [facility] [address] [place] [address], Glucose [Mass/Vol] 91 mg/dL Normal 68-110 [facility] Comment on above: Performed By: #### Simi H8, MG #### [facility] [address] [place] [address], Potassium [Moles/Vol] 3.9 mmol/L Normal 3.3-5.3 [facility] Comment on above: Performed By: #### Simi H8, MG #### [facility] [address] [place] [address], Sodium [Moles/Vol] 138 mmol/L Normal 135-148 [facility] Comment on above: Performed By: #### Simi H8, MG #### [facility] [address] [place] [address], Urea nitrogen [Mass/Vol] 6 mg/dL Low 8-22 [facility] Comment on above: Performed By: #### Simi H8, MG #### [facility] [address] [place] [address], CBC WITH DIFFERENTIALon 12-29 Basophils (Bld) [#/Vol] 0.05 10*3/uL Normal 0.00-0.20 [facility] Comment on above: Performed By: #### Simi H8, MG #### [facility] [address] [place] [address], Basophils/100 WBC (Bld) 0.4 % Normal <=1.9 [facility] Comment on above: Performed By: #### Simi H8, MG #### [facility] [address] [place] [address], Eosinophils (Bld) [#/Vol] 0.20 10*3/uL Normal 0.00-0.70 [facility] Comment on above: Performed By: #### Simi H8, MG #### [facility] [address] [place] [address], Eosinophils/100 WBC (Bld) 1.4 % Normal 0.1-4.0 [facility] Comment on above: Performed By: #### Simi H8, MG #### [facility] [address] [place] [address], Erythrocyte distribution width (RBC) [Ratio] 15.2 % High 11.5-14.5 [facility] Comment on above: Performed By: #### Simi H8, MG #### [facility] [address] [place] [address], Hematocrit (Bld) [Volume fraction] 33.5 % Low 36.0-46.0 The [facility] Comment on above: Performed By: #### C H8, MG #### S PATH[facility] [address] [place] [address], Hemoglobin (Bld) [Mass/Vol] 10.9 g/dL Low 12.0-15.0 [facility] Comment on above: Performed By: #### Simi H8, MG #### [facility] [address] [place] [address], Lymphocytes (Bld) [#/Vol] 2.22 10*3/uL Normal 1.00-4.80 [facility] [place] Comment on above: Performed By: #### Simi H8, MG #### [facility] [address] [place] [address], Lymphocytes/100 WBC (Bld) 16.1 % Low 24.0-44.0 [facility] Comment on above: Performed By: #### Simi H8, MG #### [facility] [address] [place] [address], MCH (RBC) [Entitic mass] 26.9 pg Normal 26.0-34.0 [facility] [place] Comment on above: Performed By: #### Simi H8, MG #### [facility] [address] [place] [address], MCHC (RBC) [Mass/Vol] 32.6 g/dL Normal 32.0-35.9 [facility] Comment on above: Performed By: #### Simi H8, MG #### [facility] [address] [place] [address], MCV (RBC) [Entitic vol] 83 fL Normal 80-100 [facility] [place] Comment on above: Performed By: #### Simi H8, MG #### [facility] [address] [place] [address], MONOCYTE DISTRIBUTION WIDTH 23 High <=20 [facility] Comment on above: Performed By: #### C H8, MG #### [facility] [address] [place] [address], Monocytes (Bld) [#/Vol] 1.13 10*3/uL High 0.20-1.00 [facility] [place] Comment on above: Performed By: #### Simi H8, MG #### [facility] [address] [place] [address], Monocytes/100 WBC (Bld) 8.2 % Normal 2.0-11.0 [facility] Comment on above: Performed By: #### Simi H8, MG #### [facility] [address] [place], [place], Neutrophils (Bld) [#/Vol] 10.18 10*3/uL High 1.50-8.00 [facility] Comment on above: Performed By: #### Simi H8, MG #### [facility] [address] [place], [place], Neutrophils/100 WBC (Bld) 73.9 % Normal 31.0-76.0 [facility] Comment on above: Performed By: #### Simi H8, MG #### [facility] [address] [place] [address], Platelet mean volume (Bld) [Entitic vol] 7.5 fL Normal 7.5-11.2 [facility] Comment on above: Performed By: #### Simi Ivey, MG #### [facility] [address] [place], [place], Platelets (Bld) [#/Vol] 466 10*3/uL High 150-400 [facility] Comment on above: Performed By: #### Simi Ivey, MG #### [facility] [address] [place], [place], RBC (Bld) [#/Vol] 4.06 10*6/uL Normal 4.00-5.20 [facility] Comment on above: Performed By: #### Simi H8, MG #### [facility] [address] [place], [place], WBC (Bld) [#/Vol] 13.8 10*3/uL High 4.5-11.5 [facility] Comment on above: Performed By: #### Simi H8, MG #### [facility] [address] [place], [place], Care Plan Noteon 01-12-2021 Gi Asst Authentication Interface Message Text Problem: Routine Care: Goal: Patient care will be managed and maintained throughout hospital stay per unit specific routine care procedure Outcome: Progressing Note: Maintain routine care per 7B protocol. Problem: Safety: Goal: Patient will remain free of falls during hospital stay Outcome: Progressing Goal: Free from injury during hospitalization Outcome: Progressing Problem: Acute Pain: Goal: Ability to identify pain intensity on a pain scale and rate it consistently will be achieved and maintained Outcome: Progressing Note: Patient has had reports of pain on this shift. Continue to assess for pain and implement pain interventions as needed. Goal: Understanding of proper administration and use of medicines will be achieved Outcome: Progressing Goal: Acceptable level of pain which allows the patient to achieve functional outcome goals Outcome: Progressing Problem: VTE Prophylaxis: Goal: Will be free of DVT Outcome: Progressing Note: Continue prophylaxis per orders. Problem: Discharge Planning: Goal: Discharge needs of the adult patient will be met Outcome: Progressing Note: Continue to collaborate with interdisciplinary team. Problem: Impaired Skin Integrity: Goal: Acheive wound healing without signs and symptoms of infection Outcome: Progressing Normal [facility] MAGNESIUMon 01-12-2021 Magnesium [Mass/Vol] 2.0 mg/dL Normal 1.6-2.8 [facility] Comment on above: Performed By: #### C H8, MG #### [facility] [address] [place] [address], [id number] Addendum Noteon 01-11-2021 Gi Asst Authentication Interface Message Text Addendum created 01/11/21 1502 by Desean Hernandez MD Clinical Note Signed Normal [facility] Anesthesia Postprocedure Kathy escamillaationon 01-11-2021 Gi Asst Authentication Interface Message Text Anesthesia Postoperative Assessment: Vital Signs (most recent): BP 126/76 (BP Location: right forearm) Pulse 107 Temp 37.1 ???C (98.7 ???F) (Oral) Resp 22 Ht 5' 3 (1.6 m) Wt (!) 361 lb 8.9 oz (164 kg) LMP 01/06/2021 SpO2 96% BMI 64.05 kg/m??? Anesthesia Post Evaluation Patient location during evaluation: bedside Patient participation: complete - patient participated Level of consciousness: awake and alert Pain score: 8 Pain management: adequate with injectable pain meds, oxycodone has not helped Airway patency: patent Cardiovascular status: acceptable and hemodynamically stable Respiratory status: acceptable and Patient breathing comfortably with supplemental oxygen via nasal cannula Hydration status: normal PONV: No nausea/vomiting reported I was personally responsible for performing the postop evaluation. ANESTHESIA COMPLICATIONS: No complications documented. Normal [facility] BASIC METABOLIC PANELon 04-1 Anion gap [Moles/Vol] 16 mmol/L High 5-13 [facility] [place] Comment on above: Performed By: #### Allan CÁRDENAS, CH8 ####[facility] [id number] [place], [place], Calcium [Mass/Vol] 7.7 mg/dL Low 8.4-10.4 [facility] Comment on above: Performed By: #### Allan CÁRDENAS, VASQUEZ8 ####S PATHOLOGY [id number] [place], [place], Chloride [Moles/Vol] 101 mmol/L Normal 97-111 [facility] [place] Comment on above: Performed By: #### Allan CÁRDENAS, VASQUEZ8 ####S PATHOLOGY [id number] [place], [place], CO2 [Moles/Vol] 23 mmol/L Normal 21-30 [facility] Comment on above: Performed By: #### Allan CÁRDENAS, VASQUEZ8 ####S PATHOLOGY [id number] [place], [place], Creatinine [Mass/Vol] 0.77 mg/dL Normal 0.50-1.10 [facility] [place] Comment on above: Performed By: #### Allan CÁRDENAS, VASQUEZ8 ####S PATHOLOGY [id number] [place], [place], ESTIMATED GFR (CKD-EPI) 106 mL/min/1.73sqm Normal >=60 [facility] Comment on above: Performed By: #### Allan CÁRDENAS, CH8 ####[facility] [id number] [place], [place], Glucose [Mass/Vol] 123 mg/dL High 68-110 [facility] Comment on above: Performed By: #### Allan CÁRDENAS, CH8 ####[facility] [id number] [place], [place], Potassium [Moles/Vol] 3.5 mmol/L Normal 3.3-5.3 [facility] [place] Comment on above: Performed By: #### H VASQUEZ CÁRDENAS8 ####[facility] [id number] [place], [place], Sodium [Moles/Vol] 136 mmol/L Normal 135-148 [facility] Comment on above: Performed By: #### H AVI, VASQUEZ8 ####[facility] [id number] [place], [place], Urea nitrogen [Mass/Vol] 8 mg/dL Normal 8-22 [facility] [place] Comment on above: Performed By: #### H VASQUEZ CÁRDENAS8 ####[facility] [id number] [place], [place], COMPLETE BLOOD COUNTon 01-11 Erythrocyte distribution width (RBC) [Ratio] 15.2 % High 11.5-14.5 [facility] [place] Comment on above: Performed By: #### C BC #### [facility] [address] [place], [place], Hematocrit (Bld) [Volume fraction] 35.6 % Low 36.0-46.0 [facility] Comment on above: Performed By: #### C BC #### [facility] [address] [place], [place], Hemoglobin (Bld) [Mass/Vol] 11.4 g/dL Low 12.0-15.0 [facility] [place] Comment on above: Performed By: #### C BC #### S PATHOLOGY LABORATORY [address] [place], [place], MCH (RBC) [Entitic mass] 26.4 pg Normal 26.0-34.0 [facility] Comment on above: Performed By: #### C BC #### S PATHOLOG[facility] LABORATORY [address] [place], [place], MCHC (RBC) [Mass/Vol] 32.1 g/dL Normal 32.0-35.9 [facility] [place] Comment on above: Performed By: #### C BC #### S PATH[facility] LABORATORY [address] [place], [place], MCV (RBC) [Entitic vol] 82 fL Normal 80-100 [facility] Comment on above: Performed By: #### C BC #### S PATH[facility] LABORATORY [address] [place], [place], Platelet mean volume (Bld) [Entitic vol] 7.5 fL Normal 7.5-11.2 [facility] Comment on above: Performed By: #### C BC #### S [facility] LABORAT[facility] [address] [place], [place], Platelets (Bld) [#/Vol] 442 10*3/uL High 150-400 [facility] Comment on above: Performed By: #### C BC #### S PATH[facility] LABORATORY [address] [place], [place], RBC (Bld) [#/Vol] 4.33 10*6/uL Normal 4.00-5.20 The [facility] Comment on above: Performed By: #### C BC #### S PATH[facility] LABORATORY [address] [place], [place], WBC (Bld) [#/Vol] 17.1 10*3/uL High 4.5-11.5 [facility] Comment on above: Performed By: #### C BC #### [facility] [address] [place], [place], Care Plan Noteon 01-11-2021 Gi Asst Authentication Interface Message Text Problem: Routine Care: Goal: Patient care will be managed and maintained throughout hospital stay per unit specific routine care procedure Outcome: Progressing Problem: Safety: Goal: Patient will remain free of falls during hospital stay Outcome: Progressing Goal: Free from injury during hospitalization Outcome: Progressing Problem: Acute Pain: Goal: Ability to identify pain intensity on a pain scale and rate it consistently will be achieved and maintained Outcome: Progressing Goal: Understanding of proper administration and use of medicines will be achieved Outcome: Progressing Goal: Acceptable level of pain which allows the patient to achieve functional outcome goals Outcome: Progressing Problem: VTE Prophylaxis: Goal: Will be free of DVT Outcome: Progressing Note: Lovenox administered see MAR Problem: Discharge Planning: Goal: Discharge needs of the adult patient will be met Outcome: Progressing Problem: Impaired Skin Integrity: Goal: Acheive wound healing without signs and symptoms of infection Outcome: Progressing Normal [facility] Gi Asst Authentication Interface Message Text Problem: Routine Care: Goal: Patient care will be managed and maintained throughout hospital stay per unit specific routine care procedure Outcome: Progressing Problem: Safety: Goal: Patient will remain free of falls during hospital stay Outcome: Progressing Goal: Free from injury during hospitalization Outcome: Progressing Problem: Acute Pain: Goal: Ability to identify pain intensity on a pain scale and rate it consistently will be achieved and maintained Outcome: Progressing Goal: Understanding of proper administration and use of medicines will be achieved Outcome: Progressing Goal: Acceptable level of pain which allows the patient to achieve functional outcome goals Outcome: Progressing Problem: VTE Prophylaxis: Goal: Will be free of DVT Outcome: Progressing Problem: Discharge Planning: Goal: Discharge needs of the adult patient will be met Outcome: Progressing Problem: Impaired Skin Integrity: Goal: Acheive wound healing without signs and symptoms of infection Outcome: Progressing Normal [facility] HEPATIC FUNCTION PANELon Albumin [Mass/Vol] 2.2 g/dL Low 3.4-5.1 The [facility] Comment on above: Performed By: #### PARVEZ BARRIOS ####[facility] PATHOLOGY [id number] [place] [address], ALK 86 IU/L Normal 50-190 [facility] Comment on above: Performed By: ###PARVEZ DOLL ####[facility] PATHOLOGY [id number] [place], [place], ALT [Catalytic activity/Vol] 34 U/L Normal 7-40 The [facility] Comment on above: Performed By: ###PARVEZ DOLL ####[facility] [id number] [place], [place], AST [Catalytic activity/Vol] 70 U/L High 7-40 [facility] Comment on above: Performed By: #### PARVEZ BARRIOS ####S PATHOLOGY [id number] [place], [place], Bilirubin [Mass/Vol] 1.2 mg/dL Normal 0.1-1.5 [facility] Comment on above: Performed By: ###PARVEZ DOLL ####[facility] [id number] [place], [place], Bilirubin.direct [Mass/Vol] 0.30 mg/dL Normal 0.10-0.30 [facility] Comment on above: Performed By: #### H PARVEZ CÁRDENAS ####[facility] PATH[facility] [id number] [place], [place], Protein [Mass/Vol] 5.9 g/dL Low 6.2-8.3 The [facility] Comment on above: Performed By: #### H PARVEZ CÁRDENAS ####[facility] [id number] [place], [place], PARTIAL THROMBOPLASTIN TIMEo n 01-11-2021 aPTT Coag (Bld) [Time] 38 s High 25-37 [facility] Comment on above: Performed By: #### A PTT, PT #### [facility] [address] [place], [place], PROTHROMBIN TIME AND INRon 0 01-11-2021 INR Coag (PPP) [Relative time] 1.56 {INR} High 0.90-1.10 [facility] Comment on above: Performed By: #### A PTT, PT #### [facility] [address] [place], [place], PT Coag (PPP) [Time] 17.6 s High 9.7-12.9 [facility] Comment on above: Performed By: #### A PTT, PT #### [facility] [address] [place], [place], Progress Noteson 01-11-2021 Gi Asst Authentication Interface Message Text Post-op check note S: No acute events since surgery. Pt has tolerated clears without nausea and vomiting. Pain is no longer the same as prior to surgery. RUQ pain is replaced with incisional pain. She is breathing well. She denies chest pain. Not having any gas from below yet. O: Vitals Recorded in This Encounter 01/10/2021 1915 01/10/2021 1949 01/10/2021202201/10/2021205201/10/2021 2200 BP: 136/80 -- -- -- 143/83 Pulse: 107 -- -- -- 111 Resp: 20 -- -- -- 18 Temp: 99.7 ???F (37.6 ???C) -- -- -- 99.4 ???F (37.4 ???C) Temp src: Oral -- -- -- Oral SpO2: 93 % -- -- -- 97 % Pain Score: 7 8 8 5 -- Intake/Output Summary (Last 24 hours) at 01/10/20211 Last data filed at 01/10/2021 2200 Gross per 24 hour Intake 2583.33 ml Output 20 ml Net 2563.33 ml Gen: NAD, resting comfortably in bed Neuro: Alert and oriented Chest: breathing comfortably ORA Abdomen: Soft, obese appropriately tender, nondistended, incisions with steristips, no bleeding noted Extremities: moving all extremities equally A/P Pt is POD#0 s/p Lap Linda with purulent ascites. Pt tolerated procedure well Continue Zosyn for 4 days post op Tolerating CLD, likely advance to Regular Diet in am DONNELL orders placed Gurpreet Villarreal MD General Surgery Resident Acute Care Surgery Pager [phone], Weekdays 6a-6p [place] Pager [phone], Weekdays 6p-6a, weekends Normal [facility] ABO RH TYPEon 01-10-2021 ABO and Rh group Nom (Bld) Blood group B Rh(D) positive Normal [facility] Comment on above: Performed By: #### C H8, MG #### [facility] [address] [place], [address] AEROBIC WOUND CULTUREon 12-29 AEROBIC WOUND CULTURE C PYOG: Positive Culture Report ENTEROCOCCUS FAECIUM 2+ Enterococcus faecium GRAM STAIN: 3+ Polymorphonuclear Leukocytes 1+ Squamous Epithelial Cells 2+ Gram Positive Cocci Normal [facility] Comment on above: Order Comment: THIS IS A PRELIMINARY REPORT. Final results will follow. Results of the preliminary report may be modified as additional information becomes available. Performed By: #### C PYOG ####[facility] [id number] [place] [id number] LARISA ___ ORGANISM: ENTEROCOCCUS FAECIUM ANTIBIOTIC LARISA SENSITIVITY Ampicillin <= 2 S Linezolid 2 S Vancomycin <= 0.5 S Doxycycline <= 0.5 S Tetracycline <= 1 S Normal [facility] Comment on above: Order Comment: THIS IS A PRELIMINARY REPORT. Final results will follow. Results of the preliminary report may be modified as additional information becomes available. Performed By: #### C PYOG ####[facility] [id number] [place], [place] ANAEROBIC CULTURE, MISCon ANAEROBIC CULTURE, MISC C ANRBC: No Anaerobes isolated Normal [facility] Comment on above: Performed By: #### C H8, MG #### [facility] [address] [place], [address] Anesthesia Arrivalon 021 Gi Asst Authentication Interface Message Text Patient taken to PACU. Patient was drowsy and stable on arrival. Anesthesia Transfer of Care Note Past Medical History: No past medical history on file. Sleep Apnea/Positive STOP-BANG: Yes Problem List: Patient Active Problem List: Cholecystitis [K81.9] Past Surgical History: @SURGICALHX@ Allergies: Onion and Other (review comments!) Basic Operating Room Facts: Surgeon(s): Faraz Maravilla MD Anesthesiologist: Colton Adams MD; Lalo Owusu MD; Gustavo Anthony MD CAA: Bhanu Cutler CAA; Suzan Ramirez CAA; Tip Whitaker CAA Junior Net Developer: Desean Shepherd MD CHOLECYSTECTOMY, LAPAROSCOPIC, Possible Open (N/A ) Intraoperative Events: No acute event ASA: 4 EBL: 20 mL Urine Not documented Lactated Ringers and NaCl 0.9%: Fluid Totals (Filter: LR and NaCl 0.9% Medications Shown) Medication Calculated Total Lactated Ringers 1,000 mL / 1 bag Lactated Ringers 800 mL / 1 bag Cell Saver: Not documented Blood Volume Values: Blood Products None MTP Blood: MTP PRBC: Not documented MTP FFP: Not documented MTP PLT: Not documented MTP Cryo: Not documented MTP Whole Blood: Not documented Current Vasoactive Medications: {Vasoactive Medications: None Lines, Drains, Airways Peripheral IV Access: 01/10/21 0559 20 gauge Left Antecubital (Active) Peripheral IV Access: 01/10/21 0902 20 gauge Left Hand (Active) $ Lines: $ IV Start (procedure) 01/10/21 0930 Site Assessment WNL;Dressing intact 01/10/21 125 Infusion Status Port #1 Infusing 01/10/21 125 Peripheral IV Access: 01/10/21 131 18 gauge Left Hand (Active) Site Assessment WNL;Dressing intact 01/10/21 131 Infusion Status Port #1 Infusing 01/10/211314 Airway Insertion Details [REMOVED] Advanced Airway: ETT, Oral;Cuffed #7 (Removed) 01/10/211310 Pre-Oxygenation/ Induction: Mask Rapid Sequence Induction?: Mask Ventilation: Easy;w/oral airway Blade size: Visualization: Grade 1 Airway Type: ETT, Oral;Cuffed Airway Size: #7 Post Insertion Assessment: Confirmation: Equal bilateral breath sounds, CO2 confirmed # Attempts >1: Special Equipment: Glidescope;Bite block placed Present on Admission?: Previously Removed / Not Present: Removal Reason: Not Removed at Discharge: Removed 01/10/21 1706 $ Intubation $ Intubation (procedure) 01/10/21 131 Advanced Airway Tube Position Right 01/10/211310 Location (cm) 22 01/10/21 131 Measured from: Lips 01/10/21 131 Secured via: Taped 01/10/211310 Site Assessment WNL 01/10/21 131 All non-working IVs have been removed: Yes Laboratory Data: CBC (last 3 years, up to 5 values) WBC RBC Hgb Hct MCV RDW Plt 01/10/21 0810 18.8 4.45 11.8 36.5 82 15.5 450 Basic Metabolic Panel Na K Cl CO2 Gap Glu BUN Cr Ca 01/10/21 0810 131 3.8 Comment: Hemolysis present 97 24 14 112 7 0.64 8.1 Basic Metabolic Panel Na K Cl CO2 Gap Glu BUN Cr Ca Mg PO4 01/10/21 0810 131 3.8 Comment: Hemolysis present 97 24 14 112 7 0.64 8.1 No results found for: INR No result for BNP LFT's (last 3 years, up to 5 values) None Arterial Blood Gases None Hand off Completed: Yes 1. The patient was identified. 2. Pertinent medical history was relayed. 3. A brief discussion was had about any pertinent surgical/ procedural issues. 4. Intraoperative/ anesthetic management issue and concerns were discussed. 5. Plans for the early post-operative period relayed. 6. An opportunity for questions and acknowledgment of understanding of the report was received. LANDRY Thibodeaux Normal [facility] Anesthesia Attestationon Gi Asst Authentication Interface Message Text Anesthesia Attestation ATTESTATION OF INFORMED CONSENT FOR ANESTHESIA Anesthesia options were discussed with the patient and/or legal inbound sales representative. The risks, benefits and alternatives were reviewed. Questions regarding anesthesia were answered. Patient and/or legal inbound sales representative knows such anesthetics and procedures may be performed by Resident physicians, Certified Anesthesiologist Assistants, or Certified Nurse Anesthetists under the supervision of a physician. The patient /or the patient's legal inbound sales representative agree with the plan for anesthesia. R/b dw pt/mother. Understands at higher risk due to med issues. Wishes to proceed. Normal [facility] Anesthesia Postprocedure Kathy luationon 01-10-2021 Gi Asst Authentication Interface Message Text Anesthesia Postoperative Assessment: Vital Signs (most recent): BP 118/60 Pulse (!) 101 Temp 37.6 ???C (99.7 ???F) Resp 20 Ht 5' 3 (1.6 m) Wt (!) 361 lb 8.9 oz (164 kg) LMP 01/06/2021 SpO2 96% BMI 64.05 kg/m??? Anesthesia Post Evaluation Patient location during evaluation: PACU Patient participation: complete - patient participated Level of consciousness: sleepy but appropriately following commands Pain score: 3 Pain management: adequate Airway patency: patent Cardiovascular status: acceptable Respiratory status: acceptable Hydration status: normal PONV: No nausea/vomiting reported I was personally responsible for performing the postop evaluation. ANESTHESIA COMPLICATIONS: No complications documented. 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 Neuro/Psych (+) depression, anxiety/panic attacks, Comment: lbp-L sciatica Agoraphobia Panic attacks Cardiovascular (+) hypertension, Surgical risk: intermediate; Cardiac condition: stable Comment: Hx htn but none now GI/Hepatic/Renal Comment: Renal stone cholelythiasis Heme/Other - negative ROS Physical Exam Airway Mallampati: IV TM distance: Adequate Micrognathia: Not present Jaw opening: Adequate Neck flexion: Limited Extension Dental PE (+) intact Pulmonary Decreased breath sounds Cardiovascular - cardiovascular exam normal Comment: RRR with S1S2; no murmurs, gallops, or rubs Neuro - neurological exam normal Comment: Awake, alert, oriented, No motor deficits and sensation grossly intact Plan Anesthesia plan: general (ETT) Medications may include (but not limited to): anxiolytics, narcotic analgesics, IV hypnotics, neuromuscular blockers and inhalational analgesics Pain management: May include (but not limited to): anxiolytics and narcotic analgesics Anesthesia risks / alternatives discussed pre-op Questions answered / anesthesia plan accepted Past medical history, surgical history, allergies, and medications reviewed. Pertinent laboratory tests, EKG, imaging, and consults reviewed and I have personally seen and evaluated the patient, repeating conley portions of the history and physical examination. Normal [facility] BASIC METABOLIC PANELon 12-29 Anion gap [Moles/Vol] 14 mmol/L High 5-13 [facility] Comment on above: Performed By: #### C H8 #### [facility] [address] [place] [address], Calcium [Mass/Vol] 8.1 mg/dL Low 8.4-10.4 The [facility] Comment on above: Performed By: #### C H8 #### [facility] [address] [place] [address], Chloride [Moles/Vol] 97 mmol/L Normal 97-111 [facility] Comment on above: Performed By: #### C H8 #### [facility] [address] [place] [address], CO2 [Moles/Vol] 24 mmol/L Normal 21-30 The [facility] Comment on above: Performed By: #### C H8 #### S PATHOLOGY LABORATORY [address] [place] [address], Creatinine [Mass/Vol] 0.64 mg/dL Normal 0.50-1.10 [facility] Comment on above: Performed By: #### C H8 #### S PATHOLOGY LABORATORY [address] [place] [address], ESTIMATED GFR (CKD-EPI) 123 mL/min/1.73sqm Normal >=60 The [facility] Comment on above: Performed By: #### C H8 #### S PATHOLOGY LABORATORY [address] [place] [address], Glucose [Mass/Vol] 112 mg/dL High 68-110 [facility] Comment on above: Performed By: #### C H8 #### S PATHOLOGY LABORATORY [address] [place] [address], Potassium [Moles/Vol] 3.8 mmol/L Normal 3.3-5.3 [facility] Comment on above: Result Comment: Hemo lysis present Performed By: #### C H8 #### S PATHOLOGY LABORATORY [address] [place] [address], Sodium [Moles/Vol] 131 mmol/L Low 135-148 [facility] Comment on above: Performed By: #### C H8 #### S PATHOLOGY LABORATORY [address] [place] [address], Urea nitrogen [Mass/Vol] 7 mg/dL Low 8-22 [facility] Comment on above: Performed By: #### C H8 #### S PATHOLOGY LABORATORY [address] [place] [address], Blood Attestationon 01-11-20 21 Gi Asst Authentication Interface Message Text Blood Attestation ATTESTATION OF INFORMED CONSENT FOR BLOOD The transfusion of blood and/or blood components were discussed with the patient and/or legal inbound sales representative. The risks, benefits and alternatives were reviewed. Questions regarding blood transfusions were answered. The patient /or the patient's legal inbound sales representative agree with the plan for transfusion of blood and/or blood components. Normal [facility] Brief Operative Noteon 01-10 Gi Asst Authentication Interface Message Text Brief Operative Note MAIN OR 09 Marcie Loyola 25 year old female Surgical Contact Serial Number: [id number] Preoperative Diagnosis: Cholecystitis [K81.9] Postoperative Diagnosis: * Cholecystitis [K81.9] Acute Suppurative Cholecystitis Procedures: Laparoscopic Cholecystectomy Surgeon(s): Surgeon(s): Faraz Maravilla MD Staff: Scrub: Shelli Lao; Lisa Becker RN; Mya Snyder RN Ergonomics Engineer Nurse: Erin Hobbs RN; Maya Acuna RN Rn Observation: Gurpreet Villarreal MD; Gabrielle Little MD Anesthesia: General Anesthesiologist: Colton Adams MD; Lalo Owusu MD; Gustavo Anthony MD CAA: Bhanu Cutler CAA; Suzan Ramirez CAA; Tip Whitaker CAA Junior Net Developer: Desean Shepherd MD Specimen(s): ID Type Source Tests Collected by Time Destination 1 : Tissue Gallbladder SPECIMEN FOR SURGICAL PATH Faraz Maravilla MD 01/10/2021 1538 A : bile Aspirate Gallbladder AEROBIC WOUND CULTURE, ANAEROBIC CULTURE, MISC Faraz Maravilla MD 01/10/2021 1430 Estimated Blood Loss: 20cc Lines/Drains: Peripheral IV Access: 01/10/21 0559 20 gauge Left Antecubital (Active) Site Assessment WNL;Dressing intact 01/10/21 1715 Infusion Status Port #1 Infusing;Patent 01/10/21 1715 Peripheral IV Access: 01/10/21 1315 18 gauge Left Hand (Active) Site Assessment WNL;Dressing intact 01/10/21 1715 Infusion Status Port #1 Capped;Patent 01/10/21 171 Temporarily Retained Foreign Object: No Location: n/a Object: n/a Anticipated removal date: n/a Findings: Marked inflammed and tense gallbladder, purulent ascites, gallbladder with purulent drainage- decompressed and fluid sent to microbiology Complications: None Status at end of surgery: Stable Activity: Ad Ana Surgical wound class: Yes, wound was contaminated. Patient Class: Inpatient. Is this a patient scheduled as an outpatient that needs to be admitted as an inpatient? No Dr. Maravilla was present and scrubbed for all critical portions of the procedure and immediately available for the entirety of the operation. Signed by Gabrielle Erazo MD 01/10/2021 5:31 PM Normal [facility] CBC WITH DIFFERENTIALon 12-29 Basophils (Bld) [#/Vol] 0.08 10*3/uL Normal 0.00-0.20 [facility] Comment on above: Performed By: #### C H8, MG #### S PATHOLOGY LABORATORY [address] [place] [address], Basophils/100 WBC (Bld) 0.4 % Normal <=1.9 [facility] Comment on above: Performed By: #### C H8, MG #### S [facility] LABORATORY [address] [place] [address], Eosinophils (Bld) [#/Vol] 0.06 10*3/uL Normal 0.00-0.70 [facility] Comment on above: Performed By: #### C H8, MG #### S [facility] LABORATORY [address] [place] [address], Eosinophils/100 WBC (Bld) 0.3 % Normal 0.1-4.0 [facility] Comment on above: Performed By: #### C H8, MG #### S [facility] LABORATORY [address] [place] [address], Erythrocyte distribution width (RBC) [Ratio] 15.5 % High 11.5-14.5 [facility] Comment on above: Performed By: #### C H8, MG #### [facility] [address] [place] [address], Hematocrit (Bld) [Volume fraction] 36.5 % Normal 36.0-46.0 [facility] Comment on above: Performed By: #### C H8, MG #### S [facility] LABORATORY [address] [place] [address], Hemoglobin (Bld) [Mass/Vol] 11.8 g/dL Low 12.0-15.0 [facility] Comment on above: Performed By: #### Simi Ivey, MG #### [facility] [address] [place] [address], Lymphocytes (Bld) [#/Vol] 2.30 10*3/uL Normal 1.00-4.80 [facility] Comment on above: Performed By: #### Simi Ivey, MG #### [facility] [address] [place] [address], Lymphocytes/100 WBC (Bld) 12.2 % Low 24.0-44.0 [facility] Comment on above: Performed By: #### Simi Ivey, MG #### [facility] [address] [place] [address], MCH (RBC) [Entitic mass] 26.5 pg Normal 26.0-34.0 [facility] Comment on above: Performed By: #### Simi Ivey, MG #### [facility] [address] [place] [address], MCHC (RBC) [Mass/Vol] 32.4 g/dL Normal 32.0-35.9 [facility] Comment on above: Performed By: #### Simi Ivey, MG #### [facility] [address] [place] [address], MCV (RBC) [Entitic vol] 82 fL Normal 80-100 [facility] Comment on above: Performed By: #### Simi Ivey, MG #### [facility] [address] [place] [address], MONOCYTE DISTRIBUTION WIDTH 29 High <=20 [facility] Comment on above: Performed By: #### Simi Ivey, MG #### S PATHOLOGY LABORATORY [address] [place] [address], Monocytes (Bld) [#/Vol] 1.37 10*3/uL High 0.20-1.00 [facility] Comment on above: Performed By: ###Indu Ivey, MG #### [facility] [address] [place], [place], Monocytes/100 WBC (Bld) 7.3 % Normal 2.0-11.0 [facility] Comment on above: Performed By: #### Simi H8, MG #### S [facility] LABORATORY [address] [place] [address], Neutrophils (Bld) [#/Vol] 14.99 10*3/uL High 1.50-8.00 [facility] Comment on above: Performed By: #### Simi H8, MG #### S [facility] LABORATORY [address] [place], [place], Neutrophils/100 WBC (Bld) 79.7 % High 31.0-76.0 [facility] Comment on above: Performed By: #### Simi H8, MG #### [facility] [address] [place] [address], Platelet mean volume (Bld) [Entitic vol] 7.8 fL Normal 7.5-11.2 [facility] Comment on above: Performed By: #### Simi H8, MG #### [facility] [address] [place], [place], Platelets (Bld) [#/Vol] 450 10*3/uL High 150-400 [facility] Comment on above: Performed By: #### Simi H8, MG #### [facility] [address] [place], [place], RBC (Bld) [#/Vol] 4.45 10*6/uL Normal 4.00-5.20 [facility] Comment on above: Performed By: #### Simi H8, MG #### [facility] [address] [place], [place], WBC (Bld) [#/Vol] 18.8 10*3/uL High 4.5-11.5 [facility] Comment on above: Performed By: #### Simi H8, MG #### [facility] [address] [place] [address], CT ABD/PELVIS ED I/V SAL W / CONTRASTon 01-10-2021 CT ABD/PELVIS ED I/V SAL W/ CONTRAST EXAMINATION: CT ABD/PELVIS ED I/V SAL W/ED CLINICAL HISTORY: abd pain, ?linda TECHNOLOGISTS NOTE: pt morbidly obese best images possible COMPARISON: Outside right upper quadrant ultrasound from January 09, 2021 TECHNIQUE: Contiguous axial images were obtained through the abdomen and pelvis from the level of the diaphragmatic domes through the pubic symphysis following bolus administration of intravenous contrast. MPR sagittal and coronal reconstructions were obtained from the axial data. Before infusion of intravenous contrast, radiology personnel investigated the possibility of an allergic history and of any history of reaction to iodinated contrast material. Contrast Protocol: Omnipaque 350 [>or =100lb] 100 ml [<100 lb] 1 ml per 1 lb. INTRA-PROCEDURE MEDS: Contrast Agent [id number] 100ml Bottle 100 milliliter 01/10/2021 INTRAVENOUS FINDINGS: Included images of the lower thorax: No focal lung consolidation or pleural effusion. Atelectasis/scarring in the right lower lobe. Patient habitus results in photon starvation. Hepatobiliary: No focal liver lesion or intrahepatic biliary dilation. Cholelithiasis with gallbladder distention to 13 cm, gallbladder wall thickening, and pericholecystic fat stranding in keeping with acute cholecystitis. No visible choledocholithiasis or common duct dilation. Pancreas: Unremarkable Spleen: Unremarkable Adrenal Glands: Unremarkable Kidneys, ureters, and bladder: Nonobstructive punctate calculus in the lower pole of left kidney. No hydroureteronephrosis. Bladder is incompletely distended and suboptimally assessed. Abdominal and pelvic vasculature: Unremarkable GI tract: Submucosal edema with likely reactive thickening of the hepatic flexure secondary to acute cholecystitis. No evidence of obstruction. The appendix is is not seen. Peritoneum and retroperitoneum: Small free fluid in the pelvis and upper mesenteric edema.. No free air. Lymph Nodes: Increase in number of mesenteric nodes without pathologic enlargement, likely reactive. No retroperitoneal or pelvic adenopathy. Uterus and adnexa: An IUD is in good position in the uterus. A tampon is present. Visualized musculoskeletal structures: No acute fracture or destructive osseous lesion. Moderate multilevel thoracolumbar degenerative endplate spurring without significant bony spinal canal stenosis. IMPRESSION: 1. Acute cholecystitis with reactive hepatic flexure colitis and small free fluid in the pelvis. 2. Nonobstructing left nephrolithiasis. MACRO: None I have reviewed the study and interpretation with the resident and agree with the findings. Normal [facility] Care Plan Noteon 01-10-2021 Gi Asst Authentication Interface Message Text Problem: Acute Pain: Goal: Acceptable level of pain which allows the patient to achieve functional outcome goals Outcome: Not Progressing Problem: Discharge Planning: Goal: Discharge needs of the adult patient will be met Outcome: Not Progressing Problem: Routine Care: Goal: Patient care will be managed and maintained throughout hospital stay per unit specific routine care procedure Outcome: Progressing Problem: Safety: Goal: Patient will remain free of falls during hospital stay Outcome: Progressing Goal: Free from injury during hospitalization Outcome: Progressing Problem: Acute Pain: Goal: Ability to identify pain intensity on a pain scale and rate it consistently will be achieved and maintained Outcome: Progressing Goal: Understanding of proper administration and use of medicines will be achieved Outcome: Progressing Problem: VTE Prophylaxis: Goal: Will be free of DVT Outcome: Progressing Problem: Impaired Skin Integrity: Goal: Acheive wound healing without signs and symptoms of infection Outcome: Progressing Normal [facility] Consultson 01-10-2021 Gi Asst Authentication Interface Message Text Surgery H AND P/Consult: Reason for Consult: RUQ abdominal pain HPI: Marcie Loyola is a 25 year old female with PMH of asthma, PCOS, back pain, obesity who presents with RUQ pain. She states that the pain began as sharp LUQ pain three days and progressed throughout the day. She had some associated nausea, fevers, and chills. This prompted her to visit the ED where she reportedly had a normal CT and was given pain medications and discharged. However, she continued to have severe pain now migrating to the RUQ so she presented to the ED again 01/09 where she was found to have a fever (Tm 101.1), leukocytosis (WBC 17.8) and elevated bilirubin (T bili 1.6). RUQ showed cholelithiasis with wall thickening (4mm), without pericholecystic fluid. Due to her morbid obesity, she was transferred to [facility] for further evaluation. PMH: asthma, PCOS, back pain, obesity PSH: laparoscopic bilateral cystectomy and right salpingectomy Social History Tobacco Use Smoking status: Not on file Substance Use Topics Alcohol use: Not on file Drug use: Not on file FMH: -Patient denies history of medical disease in family. Allergies Allergen Reactions Onion Swelling Other (Review Comments!) Swelling [place] cones and needles No current facility-administered medications on file prior to encounter. No current outpatient medications on file prior to encounter. ROS: Review Of Systems: Skin: negative Eyes: negative review of symptoms Ears/Nose/Throat: negative Respiratory: negative symptoms (no cough, hemoptysis, SOB, OSBORN, PND, wheezing) Cardiovascular: negative symptoms (No CP/Pressure/Tightness, palpitations, orthopnea, PND, SOB, OSBORN, edema, CHAMPION or vision change) Gastrointestinal: Positive for abdominal pain, nausea. Negative for vomiting, constipation, diarrhea. Genitourinary: no urinary symptoms Neurologic: negative symptoms (no syncope, seizures, weakness, gait problems, numbness, burning pain, tremors, or memory loss) MSK: Positive for back pain Psychiatric: negative (no sleep disturbance, anxiety, memory loss, disorientation, inattention, feelings of depression) Hematologic/Lymphatic/I mmunologic: negative (no anemia, bleeding, bruising) Endocrine: negative review of symptoms PE: Tmax (24 hours): 99.9 ???F (37.7 ???C) Pulse Av.5 Min: 109 Max: 122 Systolic (24hrs), Av , Min:130 , Max:130 Diastolic (24hrs), Av, Min:67, Max:83 SpO2 Av % Min: 96 % Max: 96 % Resp Av Min: 16 Max: 20 No intake/output data recorded. Vitals: 01/10/21 0304 BP: 130/67 Pulse: (!) 122 Resp: 16 Temp: 99.9 ???F (37.7 ???C) SpO2: 96% Gen: NAD, AAOx3 Eyes: EOMI H/N: no palpable lymphadenopathy CV: RRR NL S1/2 Pulm: CTAB Abd: soft, non-distended, tender to palpation in the RUQ, positive Perez's sign : no CVA tenderness Ext: WWP, no edema Labs: CBC (last 3 years, up to 5 values) None Basic Metabolic Panel None LFT's (last 3 years, up to 5 values) None Imaging: RUQ US (outside records): Dilated gallbladder with 4mm wall thickness. No pericholecystic fluid. Multiple gallstones. CBD diameter of 7mm. Assessment: Marcie Loyola is a 25 year old female with PMH of asthma, PCOS, back pain, obesity who presents with 3 days of RUQ pain. She is febrile (Tm 101.1 F), tachycardic, with leukocytosis (17.8), and elevated bilirubin (T bili 1.6). Lipase wnl. Exam with RUQ and epigastric tenderness. RUQ US showed cholelithiasis with mild gallbladder wall thickening without pericholecystic fluid. With patient's borderline US findings, a CT would be helpful to further investigate. Plan: -Will obtain CT scan -Further intervention pending imaging findings Patient was seen and d/w Attending Surgeon Dr Jones --- Alberto Luu MD PGY2 [facility] Surgery Pager [phone], -p [place] Pager [phone], -, weekends Teaching Physician Note: I saw and evaluated the patient. I personally obtained the conley and critical portions of the history and physical exam. I reviewed the resident's documentation and discussed the patient with the resident. I agree with the resident's medical decision making as documented in the resident's note, with the following addendum(s): -Patient is a 25 y/o morbidly obese female presenting with several days duration of RUQ abdominal pain. Patient states that pain began roughly 3-4 days ago and describes it as a sharp pain in her RUQ. Went to OSH ED where RUQ ultrasound revealed cholelithiasis and GB wall thickening. Transferred to [facility] for further w/u and management. CT scan obtained at [facility] reveals acute cholecystitis. Will admit and plan for lap linda in a.m. Omar Jones MD Division of Trauma, Critical Care, [place], and Emergency General Surgery Department of Surgery [facility] box stamper [facility] [employer] Normal [facility] ED Noteson 01-10-2021 Gi Asst Authentication Interface Message Text Transition of Care; Hand off Note Code Status: AGE: [age] year old SEX: female WEIGHT: no weight Chief Complaint Patient presents with * Cholecystitis/cholelith iasis here for surigical consult from [facility] Admitting Diagnosis: cholecystitis TACHYCARDIA ABDOMINAL PAIN O2 requirement: yes, continuous; 2 Lpm by NC IV access: Peripheral IV Access: 01/10/21 0559 20 gauge Left Antecubital (Active) Peripheral IV Access: 01/10/21901 20 gauge Left Hand (Active) $ Lines: $ IV Start (procedure) 01/10/21929 Site Assessment WNL 01/10/21929 Infusion Status Port #1 Capped 01/10/21929 Allergies Allergen Reactions * Onion Swelling * Other (Review Comments!) Swelling [place] cones and needles Out of Reference Range ED Results Display - if a lab has no value displayed it is normal OR not it is not completed BASIC METABOLIC PANEL - Abnormal; Notable for the following components: Result Value Ref Range Glucose 112 (*) 68 - 110 mg/dL Sodium 131 (*) 135 - 148 mmol/L Blood Urea Nitrogen 7 (*) 8 - 22 mg/dL Calcium 8.1 (*) 8.4 - 10.4 mg/dL Anion Gap 14 (*) 5 - 13 All other components within normal limits CBC WITH DIFFERENTIAL - Abnormal; Notable for the following components: WBC 18.8 (*) 4.5 - 11.5 K/uL Hemoglobin 11.8 (*) 12.0 - 15.0 g/dL Platelet 450 (*) 150 - 400 K/uL RDW-CV 15.5 (*) 11.5 - 14.5 % Neutrophils 79.7 (*) 31.0 - 76.0 % Neutrophil # 14.99 (*) 1.50 - 8.00 K/uL Lymphocytes 12.2 (*) 24.0 - 44.0 % Monocyte # 1.37 (*) 0.20 - 1.00 K/uL MDW 29 (*) <=20 All other components within normal limits TYPE AND SCREEN COMPLETE BLOOD COUNT W/DIFF Narrative: The following orders were created for panel order COMPLETE BLOOD COUNT W/DIFF. Procedure Abnormality Status --------- ------ CBC WITH DIFFERENTIAL[[id number]] Abnormal Final result Please view results for these tests on the individual orders. ABO RH TYPE COMPLETE BLOOD COUNT BASIC METABOLIC PANEL NOVEL CORONAVIRUS (COVID-19) No past medical history on file. Medications piperacillin-tazobactam in D5W (ZOSYN) 3,375 mg in dextrose 50 mL ivpb (0 g Intravenous IV Stop 01/10/21628) morphine sulfate (PF) 4 MG/ML injection (4 mg Intravenous Push Given 01/10/21640) ondansetron (ZOFRAN) 4 MG/2ML injection (4 mg Intravenous Push Given 01/10/21640) lactated ringers iv infusion ( Intravenous IV New Bag 01/10/21828) enoxaparin (LOVENOX) 40 mg/0.4 mL injection 40 mg (40 mg Subcutaneous Given 01/10/21827) And anti fxa-lmw heparin lab draw (has no administration in time range) acetaminophen (TYLENOL) 325 mg tablet (650 mg Oral Given 01/10/21827) oxyCODONE 5 MG immediate release tablet (has no administration in time range) HYDROmorphone (DILAUDID) 1 mg/mL injection (0.5 mg Intravenous Push Given 01/10/21 1026) morphine sulfate (PF) 4 MG/ML injection (4 mg Intravenous Push Given 01/10/21 0318) lactated ringers iv bolus (1,000 mL Intravenous IV New Bag 01/10/21928) dextrose 5 % in lactated ringers iv bolus (0 mL Intravenous IV Stop 01/10/21828) No active isolations Vitals Recorded in This Encounter 01/10/2021 0808 01/10/2021 1000 01/10/2021 1015 01/10/2021 1031 01/10/2021 1052 BP: 143/70 118/60 -- -- -- Pulse: (!) 108 -- -- (!) 101 -- Resp: 20 -- -- 20 -- Temp: 99.7 ???F (37.6 ???C) -- -- -- -- SpO2: 95 % 97 % -- 96 % -- Pain Score: 6 -- 9 -- Asleep Any significant change from prior assessment: No If Yes, notified at 11:22 AM Any new symptoms No If Yes, notified at 11:22 AM [facility] Provider Noteson 01-11-20 Gi Asst Authentication Interface Message Text I, Fam Yepez MD, have assumed care of this patient from Dr. Barnett at 7:47 AM. Briefly 25 year old female with PMH PCOS, obesity P/w questionable cholesystitis on US with thickened wall and cholelithiasis that was appreciated at OSH. ACS evaluated and requested CT. Zosyn, negative COVID, neg preg Blood Pressure 128/76 Pulse (Abnormal) 115 Temperature 99.9 ???F (37.7 ???C) (Oral) Respiration 17 Oxygen Saturation 93% To Do: - F/u CT A/P and ACS Recs ED Course as of Jan 10 758 Tue Jan 10, 2021 0722 IMPRESSION: 1. Acute cholecystitis with reactive hepatic flexure colitis and small free fluid in the pelvis. 2. Nonobstructive calculus in the left kidney. CT ABDOMEN AND PELVIS IV CONTRAST ONLY ED PROTOCOL [NA] ED Course User Index [NA] Fam Yepez MD Under my care: - CT imaging as noted above. Discussed with ACS who recommended admission to their service for further evaluation and management. State likely operative management later in day when OR available. No further recs at this time. Made NPO in the ED and fluid resuscitated given persistent tachycardia. Also placed on 2L NC 2/2 hypoxia during sleep. Likely component of DONNELL. Monitored in the ED w/o further acute events under my care. Fam Yepez MD Emergency Medicine PGY-3 Normal [facility] [employer] Gi Asst Authentication Interface Message Text EMERGENCY DEPARTMENT - VISIT NOTE ------- HISTORY OF PRESENT ILLNESS --- No chief complaint on file. HIPAA: Verbal permission granted from patient to discuss case, including protected health information, in front of family / friends in room at the time of the evaluation. Cage Operator: not needed - patient preferred language is Urdu. The history is provided by the Patient. Marcie Loyola is a 25 year old female with a PMH of PCOS, depression, obsesity presenting to the ED for abdominal pain. Pt states for the last 4 days she has had abdominal pain. RUQ, sever, feels inflammed and like a muscle pull, worse with some positions, not significantly better with norco. Has been associated with nausea and NBNB emesis for the last 2 days, no BMs for 2 days bc no PO but still passing flatus. Febrile at OSH but hasn't felt feverish. H/o b/l ovarian cystectomy and salpingectomy. NO dysuria, hematuria, or vaginal discharge. Denies CP, SOB, or URI symptoms. Covid negative at OSH. Went to OSH and was sent here d/t her gallbladder. Pain improved with morphine there and no longer nauseated. REVIEW OF SYSTEMS Review of Systems Constitutional: Negative for chills and fever. HENT: Negative for rhinorrhea and sore throat. Eyes: Negative for visual disturbance. Respiratory: Negative for cough and shortness of breath. Cardiovascular: Negative for chest pain. Gastrointestinal: Positive for abdominal pain, constipation, nausea and vomiting. Negative for diarrhea. Genitourinary: Negative for dysuria and hematuria. Musculoskeletal: Negative for arthralgias and myalgias. Skin: Negative for color change. Neurological: Negative for dizziness, light-headedness and headaches. PAST HISTORY Pertinent Past History: No past medical history on file. Pertinent Family History: No family history on file. Pertinent Social History: Social History: denies etoh use, drug use or tobacco use PHYSICAL EXAM BP 130/67 Pulse (!) 122 Temp 99.9 ???F (37.7 ???C) (Oral) Resp 16 SpO2 96% (37.7 ???C) (Oral) Resp 16 SpO2 96% (37.7 ???C) (Oral) Resp 16 SpO2 96% Exam: Constitutional Nursing triage notes reviewed, Vital signs reviewed, Alert, Awake and No acute distress HENT NCAT, MMM Eyes Pupils equal round and reactive to light, Extraocular muscles intact, Nonicteric and Noninjected Neck Supple Lungs Clear to auscultation, diminished in the basesNo wheezing, No rales and No respiratory distress Heart Tachycardic with a regular rhythm, No murmurs, No rubs and No gallops Abdomen Obese, TTP in the RUQ with + perez's sign, Soft, no guarding or rigidity Extremities Full ROM all 4 extremities, Normal peripheral perfusion and pulses and No edema Neuro Alert normally oriented Skin Warm, Dry and Brisk Capillary Refill Psych Normal affect and Cooperative MEDICAL DECISION MAKING and ED COURSE Nursing triage and assessment notes reviewed and incorporated Old chart reviewed: Summary of pertinent elements includes - ACS intake note from [facility] for cholecystitis, given zosyn, covid negative - Per paper charts, received zofran morphine, NS, tylenol, morphine, zosyn - US gallbladder with enlarged liver, cholelithiasis and findings suspicious for acute cholecystitis. Mildly dilated CBD without intraductal stones. (GB wall 4, no fluid, + perez's sign). - Transvag US: multiple right ovarian cysts with moderate amount of fluids in the cul-de-sac and possible d/t recent ovulation. - Labs with leukocytosis to 17.8, left shift, mildly elevated liver enzymes, preg negative, UA without UTI but dehydration - Note from surgeon saying they could not perform lap linda d/t size Evaluated by EM attending Lew Lundberg Interpretation of Results AND Medical Interventions: Pending Medical Decision Makin25 year old female with a history of PCOS, obesity presenting today with cholecystitis. While in the ED pt tachycardic but otherwise pt was afebrile, hemodynamically stable, and saturating well on RA. Non-toxic appearing. OSH imaging and labs reviewed as above. Images downloaded and ACS consulted. They evaluated patient and requested CT imaging to look for other sources of leukocytosis. This was ordered and pending at time of sign out. Awaiting final ACS recs at time of sign out. Pt given morphine, repeat zosyn, and fluids in the ED. ED Sign Out Note Sign out given at 7am board sign out. Summary as above. Interventions Given: Zosyn, fluids, morphine Pt is awaiting: CT AP ACS recs Impression Cholecystitis (Primary Diagnosis) [[id number]] Calculus of gallbladder with acute cholecyst (more content not included)... Normal [facility] H AND [place] 01-10-2021 Gi Asst Authentication Interface Message Text H AND P reviewed. The patient was examined and there are no changes to the H AND P. H AND P from 01/09/21 Surgery still Indicated Consent Obtained Gurpreet Villarreal MD General Surgery Resident Acute Care Surgery Pager [phone], 6a-6p [place] Pager [phone], Week 6p-6a, weekends Normal [facility] OP Noteon 01-10-2021 Gi Asst Authentication Interface Message Text Name: MARCIE LOYOLA MR#: [id number] ENC#: [id number] Date of Procedure: 01/10/2021 ATTENDING SURGEON: Gabrielle Erazo MD FIRST SURGEON: Gabrielle Erazo MD PREOPERATIVE DIAGNOSIS: Acute cholecystitis. POSTOPERATIVE DIAGNOSIS: Acute suppurative cholecystitis. PROCEDURE PERFORMED: Laparoscopic cholecystectomy. ANESTHESIA: General endotracheal anesthesia. ESTIMATED BLOOD LOSS: 20 mL. COMPLICATIONS: None. SPECIMENS: Gallbladder. DRAINS: None. OPERATIVE INDICATIONS AND DETAILS: The patient is a 25-year-old female, who presented with signs and symptoms and radiographic evidence consistent with acute cholecystitis, due to duration of symptoms and marked leukocytosis and radiographic findings, this was considered a grade 2 cholecystitis, she was started on IV antibiotics in the form of Zosyn and scheduled for an urgent laparoscopic cholecystectomy due to the severity of the cholecystitis. All risks, benefits, and alternatives to procedure were fully explained to the patient including a high risk for complications due to the severity of cholecystitis and her body habitus, including high-risk for conversion to an open procedure as well as bleeding, bile leak, and additional need for further procedure. She understood these and all of her questions were answered and informed consent was obtained. The patient was identified in the preoperative holding area by myself and . She was taken back to the operating room and kept in the supine position. General anesthesia was administered and the patient was intubated endotracheally without complication. Bilateral lower extremity pneumatic compression devices were in place for venous thrombosis prophylaxis and the patient was administered Lovenox prior to the case. Intravenous antibiotics again were in the form of Zosyn and were redosed as appropriate timing. A footboard was placed and the patient appropriately positioned and all bony prominences padded. The abdomen was prepped and draped in a typical sterile fashion. A proper time-out was performed. First entry access was used as 5 mm port in the right upper quadrant without issue. The patient tolerated pneumoperitoneum and insufflation well and the camera was inserted and we noted no iatrogenic injury secondary to port placement. A 12 mm port was then placedlongitudinally in the midline under direct vision and 3 additional 5 mm ports, one in the subxiphoid region and one in the right upper quadrant and additional one in between these two. Again, these were placed under direct vision. The gallbladder was noted to have large phlegmon surrounding this and purulent appearing ascites. It was noted to be quite tense and this was decompressed and fluid was sent to the back table and sent to microbiology for gram stain and culture. The fluid appeared purulent. The surrounding phlegmon was gently broken up with blunt dissection and the gallbladder grasped and retracted cephalad. After additional development of the infundibulum of the gallbladder by removal of surrounding phlegmon, we were able to retract the gallbladder laterally. The peritoneum was scored both medially and laterally in order to aid in dissection and retraction. Dissection was taken out around thetriangle of Cal[place] until the critical view of safety was obtained and the cystic duct and cystic artery noted to be entering the gallbladder and no additional structures entering the gallbladder in a clear view of the cystic plate. The cystic artery was clipped twice proximally and once distally and divided sharply with Endo Britt. 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 Therefore, a PDS Endoloop was used. The cystic duct was transected and then tied with Endoloop x2. No stones were spilled during the operation. She did have purulent bile spillage and this was suctioned clear and the area irrigated liberally. The gallbladder was taken off the liver bed with Bovie electrocautery and placed in an EndoCatch bag. The liver bed was then bovied to achieve hemostasis. This was irrigated until the suction return was clear. The gallbladder was removed in the EndoCatch bag from the abdomen through the 12 mm port site. The abdomen was allowed to desufflate as all ports were removed under direct vision. No bleeding noted and hemostasis again was noted to be achieved. The fascia of the 12 mm port was repaired under direct vision with 0 Vicryl. This was performed in an interrupted [id number] fashion. The subcutaneous tissue was liberally irrigated. Hemostasis was achieved. 1% lidocaine, a total of 30 mL, was used for a local anesthetic. The skin of each port site was then closed with 4-0 Monocryl in interrupted subcuticular fashion. The skin was cleansed and dried and surgical glue and Steri-Strips applied. The patient (more content not included)... Normal [facility] OR Nursingon 01-10-2021 Gi Asst Authentication Interface Message Text Assessed pts position at change of shift and pt is still secured Normal [facility] Progress Noteson 01-10-2021 Gi Asst Authentication Interface Message Text Updated Assessment and Plan: Patient seen and examined in ER. 1 week of N/V/Malaise, 3D h/o abdominal pain, now RUQ, non-radiating and constant and severe. Febrile, tachycardic Focal guarding RUQ with +Perez's Otherwise non-tender and without guarding. Prior surgery Lap cyst excision. No other abdominal surgeries. Labs reviewed: marked leukocytosis US and CT with findings consistent with acute cholecystitis. A/P: Grade II Acute Cholecystitis Will need urgent laparoscopic cholecystectomy Risks benefits and alternatives to procedure fully explained, including increased risk for conversiion to open cholcystectomy and increased risk of complications including bile leak. She expressed understanding of these and all of her questions were answered and informed consent obtained. IV antibiotics: Continue with Zosyn due to severity of cholecystitis. Admit ACS- Dr. Maravilla. Gabrielle Erazo MD Trauma Surgical Critical Care Fellow Acute Care Surgery Normal [facility] TYPE AND SCREENon 01-10-2021 ABO and Rh group Nom (Bld) Blood group B Rh(D) positive Normal [facility] Comment on above: Performed By: #### C H8, MG #### [facility] [address] [place] [address], ABO and Rh group Nom (Bld) No Previous Results Normal [facility] Comment on above: Performed By: #### C H8, MG #### [facility] [address] [place] [address], ABSC INT Negative Normal [facility] Comment on above: Performed By: #### C H8, MG #### [facility] [address] [place] [address], CBC W Auto Diff Bldon 2020 Basophils (Bld) [#/Vol] 0.03 10*3/uL Normal <0.11 [facility] Comment on above: Order Comment: Speci men Type: BLOOD SPECIMEN Performed By: #### 5 7021-8 #### [facility] CLIA [id number] [address] [place] [address] Basophils/100 WBC (Bld) 0.2 % Normal [facility] Comment on above: Order Comment: Speci men Type: BLOOD SPECIMEN Performed By: #### 5 7021-8 #### [facility] CLIA [id number] [address] [place] [address] Differential cell count method Nom (Bld) Auto Normal [facility] Comment on above: Order Comment: Speci men Type: BLOOD SPECIMEN Performed By: #### 5 7021-8 #### [facility] CLIA [id number] [address] [place] [address] Eosinophils (Bld) [#/Vol] 0.07 10*3/uL Normal <0.46 [facility] Comment on above: Order Comment: Speci men Type: BLOOD SPECIMEN Performed By: #### 5 7021-8 #### [facility] CLIA [id number] [address] [place] [address] Eosinophils/100 WBC (Bld) 0.4 % Normal [facility] Comment on above: Order Comment: Speci men Type: BLOOD SPECIMEN Performed By: #### 5 7021-8 #### [facility] CLIA [id number] [address] [place] [address] Erythrocyte distribution width (RBC) [Ratio] 14.2 % Normal 11.5-15.0 [facility] Comment on above: Order Comment: Speci men Type: BLOOD SPECIMEN Performed By: #### 5 7021-8 #### [facility] CLIA [id number] [address] [place] [address] Hematocrit (Bld) [Volume fraction] 39.6 % Normal [facility] Comment on above: Order Comment: Speci men Type: BLOOD SPECIMEN Performed By: #### 5 7021-8 #### [facility] CLIA [id number] [address] [place] [address] Hemoglobin (Bld) [Mass/Vol] 13.0 g/dL Normal 13.0-17.0 [facility] Comment on above: Order Comment: Speci men Type: BLOOD SPECIMEN Performed By: #### 5 7021-8 #### [facility] CLIA [id number] 1 [place] [address] IMMATURE GRAN % 0.6 % Normal [facility] Comment on above: Order Comment: Speci men Type: BLOOD SPECIMEN Performed By: #### 5 7021-8 #### [facility] CLIA [id number] [address] [place] [address] IMMATURE GRAN ABS 0.10 k/uL High <0.10 [facility] Comment on above: Order Comment: Speci men Type: BLOOD SPECIMEN Performed By: #### 5 7021-8 #### [facility] CLIA [id number] 1 [place] [address] Lymphocytes (Bld) [#/Vol] 2.00 10*3/uL Normal 1.00-4.00 [facility] Comment on above: Order Comment: Speci men Type: BLOOD SPECIMEN Performed By: #### 5 7021-8 #### [facility] CLIA [id number] [address] [place] [address] Lymphocytes/100 WBC (Bld) 11.0 % Normal [facility] Comment on above: Order Comment: Speci men Type: BLOOD SPECIMEN Performed By: #### 5 7021-8 #### [facility] CLIA [id number] 1 [place] [address] MCH (RBC) [Entitic mass] 27.3 pg Normal 26.0-34.0 [facility] Comment on above: Order Comment: Speci men Type: BLOOD SPECIMEN Performed By: #### 5 7021-8 #### [facility] CLIA [id number] 1 [place] [address] MCHC (RBC) [Mass/Vol] 32.8 g/dL Normal 30.5-36.0 [facility] Comment on above: Order Comment: Speci men Type: BLOOD SPECIMEN Performed By: #### 5 7021-8 #### [facility] CLIA [id number] 1 [place] [address] MCV (RBC) [Entitic vol] 83.0 fL Normal 80.0-100.0 [facility] Comment on above: Order Comment: Speci men Type: BLOOD SPECIMEN Performed By: #### 5 7021-8 #### [facility] CLIA [id number] 1 [place] [address] Monocytes (Bld) [#/Vol] 1.28 10*3/uL High <0.87 [facility] Comment on above: Order Comment: Speci men Type: BLOOD SPECIMEN Performed By: #### 5 7021-8 #### [facility] CLIA [id number] 1 [place] [address] Monocytes/100 WBC (Bld) 7.1 % Normal [facility] Comment on above: Order Comment: Speci men Type: BLOOD SPECIMEN Performed By: #### 5 7021-8 #### [facility] CLIA [id number] 1 [place] [address] Neutrophils (Bld) [#/Vol] 14.67 10*3/uL High 1.45-7.50 [facility] Comment on above: Order Comment: Speci men Type: BLOOD SPECIMEN Performed By: #### 5 7021-8 #### [facility] CLIA [id number] 1 [place] [address] Neutrophils/100 WBC (Bld) 80.7 % Normal [facility] Comment on above: Order Comment: Speci men Type: BLOOD SPECIMEN Performed By: #### 5 7021-8 #### [facility] CLIA [id number] 1 [place] [address] Nucleated RBC (Bld) [#/Vol] 10*3/uL Normal <0.01 [facility] Comment on above: Order Comment: Speci men Type: BLOOD SPECIMEN Performed By: #### 5 7021-8 #### [facility] CLIA [id number] 1 [place] [address] Nucleated RBC/100 WBC (Bld) [Ratio] 0.0 /100 WBC Normal 0.0 [facility] Comment on above: Order Comment: Speci men Type: BLOOD SPECIMEN Performed By: #### 5 7021-8 #### [facility] CLIA [id number] 1 [place] [address] Platelet mean volume (Bld) [Entitic vol] 9.0 fL Normal 9.0-12.7 [facility] Comment on above: Order Comment: Speci men Type: BLOOD SPECIMEN Performed By: #### 5 7021-8 #### [facility] CLIA [id number] 1 [place] [address] Platelets (Bld) [#/Vol] 468 10*3/uL High 150-400 [facility] Comment on above: Order Comment: Speci men Type: BLOOD SPECIMEN Performed By: #### 5 7021-8 #### [facility] CLIA [id number] 1 [place] [address] RBC (Bld) [#/Vol] 4.77 10*6/uL Normal 4.20-6.00 [facility] Comment on above: Order Comment: Speci men Type: BLOOD SPECIMEN Performed By: #### 5 7021-8 #### [facility] CLIA [id number] 1 [place] [address] WBC (Bld) [#/Vol] 18.15 10*3/uL High 3.70-11.00 [facility] Comment on above: Order Comment: Speci men Type: BLOOD SPECIMEN Performed By: #### 5 7021-8 #### [facility] CLIA [id number] 1 [place] [address] Comp Metab 2000 Pnl SerPlon 01-09-2021 Albumin [Mass/Vol] 3.5 g/dL Low 3.9-4.9 [facility] Comment on above: Order Comment: Speci men Type: BLOOD SPECIMEN Performed By: #### 2 4323-8, 3040-3 #### [facility] CLIA [id number] 1 [place] [address] ALP [Catalytic activity/Vol] 94 U/L Normal [facility] Comment on above: Order Comment: Speci men Type: BLOOD SPECIMEN Performed By: #### 2 4323-8, 3040-3 #### [facility] CLIA [id number] 1 [place] [address] ALT With P-5'-P [Catalytic activity/Vol] 24 U/L Normal [facility] Comment on above: Order Comment: Speci men Type: BLOOD SPECIMEN Performed By: #### 2 4323-8, 3040-3 #### [facility] CLIA [id number] 1 [place] [address] Anion gap [Moles/Vol] 10 mmol/L Normal 9-18 [facility] Comment on above: Order Comment: Speci men Type: BLOOD SPECIMEN Performed By: #### 2 4323-8, 3040-3 #### [facility] CLIA [id number] 1 [place] [address] AST With P-5'-P [Catalytic activity/Vol] 15 U/L Normal [facility] Comment on above: Order Comment: Speci men Type: BLOOD SPECIMEN Performed By: #### 2 4323-8, 3040-3 #### [facility] CLIA [id number] 1 [place] [address] Bilirubin [Mass/Vol] 1.0 mg/dL Normal 0.2-1.3 [facility] Comment on above: Order Comment: Speci men Type: BLOOD SPECIMEN Performed By: #### 2 4323-8, 3040-3 #### [facility] CLIA [id number] [address] [place] [address] Calcium [Mass/Vol] 8.9 mg/dL Normal 8.5-10.2 [facility] Comment on above: Order Comment: Speci men Type: BLOOD SPECIMEN Performed By: #### 2 4323-8, 3040-3 #### [facility] CLIA [id number] 1 [place] [address] Chloride [Moles/Vol] 98 mmol/L Normal 97-105 [facility] Comment on above: Order Comment: Speci men Type: BLOOD SPECIMEN Performed By: #### 2 4323-8, 0-3 #### [facility] CLIA [id number] 1 [place] [address] CO2 [Moles/Vol] 25 mmol/L Normal 22-30 [facility] Comment on above: Order Comment: Speci men Type: BLOOD SPECIMEN Performed By: #### 2 4323-8, 3040-3 #### [facility] CLIA [id number] 1 [place] [address] Creatinine [Mass/Vol] 0.45 mg/dL Normal [facility] Comment on above: Order Comment: Speci men Type: BLOOD SPECIMEN Performed By: #### 2 4323-8, 3040-3 #### [facility] CLIA [id number] 1 [place] [address] GFR/1.73 sq M.predicted MDRD (S/P/Bld) [Vol rate/Area] mL/min/{1.73_m2} Normal [facility] Comment on above: Order Comment: Speci men Type: BLOOD SPECIMEN Result Comment: >60 eGFR (Estimated GFR) Units of measure: mL/min/1.73 meters squared eGFR is derived from the reexpressed MDRD Study equation using the following parameters: serum creatinine, age, gender and race. The creatinine assay has been calibrated to be traceable to IDMS. An eGFR <60 mL/min/1.73m2 for >3 months is consistent with chronic kidney disease. Refer to KDOQI guidelines for clinical interpretation. In patients with unstable renal function, e.g. those with acute kidney injury, the eGFR may not accurately reflect actual GFR. Performed By: #### 2 4323-8, 3039-3 #### [facility] CLIA [id number] 1 [place] [address] Glucose [Mass/Vol] 135 mg/dL High 74-99 [facility] Comment on above: Order Comment: Speci men Type: BLOOD SPECIMEN Result Comment: The [place] [employer] (ADA) provides guidance for cutoff values for fasting glucose and random glucose. The ADA defines fasting as no caloric intake for at least 8 hours. Fasting plasma glucose results between 100 to 125 mg/dL indicate increased risk for diabetes (prediabetes). Fasting plasma glucose results greater than or equal to 126 mg/dL meet the criteria for diagnosis of diabetes. In the absence of unequivocal hyperglycemia, results should be confirmed by repeat testing. In a patient with classic symptoms of hyperglycemia or hyperglycemic crisis, random plasma glucose results greater than or equal to 200 mg/dL meet the criteria for diagnosis of diabetes. Reference: Standards of Medical Care in Diabetes 2016, [place] [employer]. Diabetes Care. 2016.39(Suppl 1). Performed By: #### 2 4323-8, 3039-3 #### [facility] CLIA [id number] 1 [place] [address] Potassium [Moles/Vol] 3.6 mmol/L Low 3.7-5.1 [facility] Comment on above: Order Comment: Speci men Type: BLOOD SPECIMEN Performed By: #### 2 4323-8, 3039-3 #### [facility] CLIA [id number] 1 [place] [address] Protein [Mass/Vol] 7.6 g/dL Normal 6.3-8.0 [facility] Comment on above: Order Comment: Speci men Type: BLOOD SPECIMEN Performed By: #### 2 4323-8, 3040-3 #### [facility] CLIA [id number] 1 [place] [address] Sodium [Moles/Vol] 133 mmol/L Low 136-144 [facility] Comment on above: Order Comment: Speci men Type: BLOOD SPECIMEN Performed By: #### 2 4323-8, 3040-3 #### [facility] CLIA [id number] 1 [place] [address] Urea nitrogen [Mass/Vol] 4 mg/dL Normal [facility] Comment on above: Order Comment: Speci men Type: BLOOD SPECIMEN Performed By: #### 2 4323-8, 3040-3 #### [facility] CLIA [id number] 1 [place] [address] ED Triage Noteon 01-09-2021 ED Triage Note HNO ID: [id number] Author: BAM Ness Pa-C Service: Emergency Medicine Author Type: Physician Chief Dog License Inspector Type: ED Triage Notes Filed: 01/09/2021 11:14 AM Note Text: ED INTAKE NOTE Patient Name: Marcie Loyola Service Date: 01/09/21 BRIEF HPI: Marcie Loyola is a 25 year old ADULT presenting to the ED c/o RLQ abdominal pain. +N/V. LBM 2 days ago. -F/C. Seen at [facility] with dx of gallstones. BRIEF EXAM: Constitutional: Well-developed, well-nourished, NAD. HEENT: Normocephalic, atraumatic. Respiratory: No respiratory distress. Cardiac: RRR. Musculoskeltal: MILLER x4. Neuro: AANDOx3. Skin: Warm and dry. INTAKE WORKUP: Bloodwork: CBC, CMP, lipase Urinalysis Test SIGNATURE: BAM Ness Normal [facility] Lipase SerPl-cCncon 01-10-20 21 Lipase [Catalytic activity/Vol] 20 U/L Normal 16-61 [facility] Comment on above: Order Comment: Speci men Type: BLOOD SPECIMEN Performed By: #### 2 4323-8, 3040-3 #### [facility] CLIA [id number] 1 [place] [address] Jonatan 05-13-2019 FERR 398.5 NG/ML High 8.0-307.0 [facility] Comment on above: Performed By: #### L 500.82734, L500.12729 #### [facility] [address] [place] [address] IRON PANELon 05-13-2019 Iron [Mass/Vol] 34 ug/dL Low 50-170 [facility] Comment on above: Result Comment: Marita ents treated with metal-binding drugs (e.g.deferoxamine) may have depressed iron values, as chelated iron may not properly react in the Siemens iron assay. Performed By: #### L 500.54927, L500.39667 #### [facility] [address] [place] [address] IRON SAT 11 % Low 22-44 [facility] Comment on above: Performed By: #### L 500.59246, L500.40371 #### [facility] [address] [place] [address] TIBC 309 UG/DL Normal 221-481 [facility] Comment on above: Performed By: #### L 500.02688, L500.24516 #### [facility] [address] [place] [address] CGLKC 04-03-2019 Chromosome Analysis Bone Marrow see below Normal [facility] ([place]) Comment on above: Result Comment: (NOT E) Laboratory Accession Number: [id number] Doctor: OUTSIDE,PHYSICIAN Pathologist: N/A Surgical Pathology No: N/A Clinical diagnosis: Leukocytosis, Thrombocytosis Specimen Type: Bone Marrow Number of cells counted: 20 Number of cells analyzed: 20 Number of cells karyotyped: 2 Banding resolution: 400 Banding method: G-banding DIAGNOSIS: 46,XX[20] INTERPRETATION: Normal, female karyotype COMMENT: Ten metaphase cells were analyzed from the culture supplemented with GM-CSF and ten metaphase cells were analyzed from the 24 hour unstimulated culture. Twenty cells analyzed showed a 46,XX karyotype. There was no significant numerical chromosome abnormality and no structural change detected within the limits of resolution. Clinical and pathologic correlation is recommended. As reviewed by Tamera Kilgore M.D., Ph.D. Performed by [facility] Pathology and Laboratory Medicine [place] Division of Molecular Pathology [facility] Lab, [id number] [place] [address] Toll free: Corrected on 04/03 AT 1445: Previously reported as Performed By: [facility] [address] [place] [address] Rn Staff: Valerie Orantes M.D. CLIA#: [id number] Phone#: Performed By: #### C BC, ADIFF, ANEU, PRO, BMP, GFR #### [address] [address] MISBon 03-24-2019 [facility]. lab Send Out (Non Blood) See Comments Normal [facility] ([place]) Comment on above: Order Comment: FISH for MPN panel Result Comment: Comp lete reference lab report scanned to EMR. Performed By: #### M ISCNB #### [place] [address] Final Bone Marrow Reporton 0 03-20-2019 Final Bone Marrow Report . Pathology Reports Accession: Collected Date/Time: Received Date/Time: Pathologist: [id number] 03/18/2019 13:17 EDT 03/19/2019 07:39 EDT DESEAN ANNA MD Final Bone Marrow Report DIAGNOSIS: BONE MARROW, ASPIRATION AND BIOPSY -- MILD LEUKOCYTOSIS AND THROMBOCYTOSIS WITH MILD MICROCYTOSIS, WITHOUT ANEMIA. NORMOCELLULAR MYELOID PREDOMINANT MARROW. NO EVIDENCE OF MALIGNANCY. CLINICAL INFORMATION: LEUKOCYTOSIS; THROMBOCYTOSIS WBC 10.20 / RBC 4.91 / HGB 12.2 / HCT 37.2 / MCV 75.9 / MCH 24.8 / MCHC 32.7 / RDW 17.0 / PLATELETS 515 / MPV 7.5 / NEUT% 54.2 / LYMPH% 36.9 / MONO% 5.5 / EOS% 2.6 / BASO% 0.8 / NEUT, ABS 5.50 / LYMPHOCYTE, ABS 3.80 / MONOCYTE, ABS 0.60 / EOSINOPHIL, ABS 0.30 / BASOPHIL, ABS 0.10 SPECIMEN: A BM BX B BM ASPIRATE GROSS DESCRIPTION: A. Received in formalin labeled ``biopsy ? is a 1.0 x 0.2 cm yang-red hard tissue core. All submitted following decalcification in 1 cassette. B. Received in formalin labeled ``aspirate ? is about a 0.75 cc. aggregate of dark red blood clot. All submitted in 1 cassette. Dictated by Priscila KUHN ([facility]) MICROSCOPIC DESCRIPTION: PERIPHERAL SMEAR: RBC -- Mild macrocytosis. WBC -- Slight leukocytosis. PLATELETS -- Mild thrombocytosis. BONE MARROW ASPIRATE: The aspirate specimen is of adequate cellularity for interpretation. Myeloid to erythroid ratio is approximately 5:1. Myeloid elements are relatively increased but show normal maturation. Erythroid maturation is normoblastic. Megakaryocytes are increased but morphologically normal. Blasts number less than 5%. Plasma cells number less than 5%. No foreign cells or granulomas are present. Iron stain shows adequate stainable iron. Ringed sideroblasts are not present. BONE MARROW BIOPSY: The biopsy specimen is normocellular (approximately 80% cells) for age. Myeloid, erythroid and megakaryocytic elements are morphologically normal. Blasts number less than 5%. Plasma cells number less than 5%. No foreign cells or granulomas are present. Bony trabeculae are normal. Myelofibrosis is absent. Clot section is reviewed and shows features essentially similar to those in the biopsy -- relative myeloid predominance. Electronically Signed by Pathology Report verified by [facility] Electronically signed by DESEAN ANNA Sign out Date: 03/20/2019 15:22 Performing Lab: [address] ([place]) Comment on above: Performed By: #### B MFR #### [place] [address] Final Flow Cytometry Reporto n 03-20-2019 Final Flow Cytometry Report . Pathology Reports Accession: Collected Date/Time: Received Date/Time: Pathologist: [id number] 03/18/2019 13:00 EDT 03/18/2019 13:47 EDT DESEAN ANNA MD Final Flow Cytometry Report INTERPRETATION: NEGATIVE STUDY FLOW CYTOMETRY ANALYSIS PHENOTYPE: Phenotype: There is a mixed population of myeloid cells (87% of total) and T and B cells. There is no increase in blasts. B-Cells (2% of total), are polytypic and T-cells account for 11%. TEST RESULTS: sKappa B CELLS sLambda B CELLS HLA-DR LEUKOCYTES CD5 T CELLS CD10 LYMPHOCYTES CD11c MONOCYTES CD13 MYELOID CELLS CD14 MONOCYTES CD15 MYELOID CELLS CD16 NK-CELLS CD19 B-CELLS CD33 MYELOID CELLS CD34 BLAST CELLS CD38 PLASMA CELLS CD45 LEUKOCYTES CD56 NK-CELLS CD64 MYELOID CELLS CD117 MYELOID CELLS CD138 PLASMA CELLS CLINICAL DATA: LEUKOCYTOSIS, THROMBOCYTOSIS SPECIMEN DESCRIPTION: NA Heparin Tube: ([id number]) PATH PROF CPT: 99891 Testing performed by [facility] DISCLAIMER: This test was developed and its performance approved by [facility]. It has not been cleared or approved by the U.S. Food and Drug Administration. The FDA has determined that such clearance or approval is not necessary. This test is used for clinical purposes. It should not be regarded as investigational or for research. This laboratory is certified under the Clinical Laboratory Improvement Amendments of 1998 (CLIA-88) as qualified to perform high complexity clinical laboratory testing. Electronically Signed by Pathology Report verified by [facility] Electronically signed by DESEAN ANNA Sign out Date: 03/20/2019 14:06 Performing Lab: [address] Normal [facility] ([place]) Comment on above: Performed By: #### F LFR #### [place] [address] .Auto Diffon 03-18-2019 Ammonia (P) [Mass/Vol] 0.60 10 3/mcL Normal 0.09-1.40 [facility] ([place]) Comment on above: Performed By: #### C BC, ADIFF, ANEU, PRO, BMP, GFR #### [place] [address] Basophils (Bld) [#/Vol] 0.10 10 3/mcL Normal 0.00-0.27 [facility] ([place]) Comment on above: Performed By: #### C BC, ADIFF, ANEU, PRO, BMP, GFR #### [address] [address] Basophils/100 WBC (Bld) 0.8 % Normal 0.0-2.5 [facility] ([place]) Comment on above: Performed By: #### C BC, ADIFF, ANEU, PRO, BMP, GFR #### [address] [address] Eosinophils (Bld) [#/Vol] 0.30 10 3/mcL Normal 0.00-0.65 [facility] ([place]) Comment on above: Performed By: #### C BC, ADIFF, ANEU, PRO, BMP, GFR #### [address] [address] Eosinophils/100 WBC (Bld) 2.6 % Normal 0.0-6.0 [facility] ([place]) Comment on above: Performed By: #### C BC, ADIFF, ANEU, PRO, BMP, GFR #### [address] [address] Lymphocytes (Bld) [#/Vol] 3.80 10 3/mcL Normal 0.90-4.32 [facility] ([place]) Comment on above: Performed By: #### C BC, ADIFF, ANEU, PRO, BMP, GFR #### [address] [address] Lymphocytes/100 WBC (Bld) 36.9 % Normal 20.0-40.0 [facility] ([place]) Comment on above: Performed By: #### C BC, ADIFF, ANEU, PRO, BMP, GFR #### [address] [address] Monocytes/100 WBC (Bld) 5.5 % Normal 2.0-13.0 [facility] ([place]) Comment on above: Performed By: #### C BC, ADIFF, ANEU, PRO, BMP, GFR #### [address] [address] Neutrophils/100 WBC (Bld) 54.2 % Normal 50.0-75.0 [facility] ([place]) Comment on above: Performed By: #### C BC, ADIFF, ANEU, PRO, BMP, GFR #### [address] [address] .GFRon 03-18-2019 GFR >60 Normal [facility] ([place] Comment on above: Result Comment: GFR Population mean for , Non- Americans Ages 20-29 = 116 mL/min/1.73 sq.m. Ages 30-39 = 107 mL/min/1.73 sq.m. Ages 40-49 = 99 mL/min/1.73 sq.m. Ages 50-59 = 93 mL/min/1.73 sq.m. Ages 60-69 = 85 mL/min/1.73 sq.m. Ages 70+ = 75 mL/min/1.73 sq.m. Chronic Kidney Disease: Less than 60 mL/min/1.73 square meters End Stage Renal Disease: Less than 15 mL/min/1.73 square meters Performed By: #### C BC, ADIFF, ANEU, PRO, BMP, GFR #### [place] [address] GFR Non- >60 Normal [facility] ([place] Comment on above: Result Comment: GFR Population mean for , Non- Americans Ages 20-29 = 116 mL/min/1.73 sq.m. Ages 30-39 = 107 mL/min/1.73 sq.m. Ages 40-49 = 99 mL/min/1.73 sq.m. Ages 50-59 = 93 mL/min/1.73 sq.m. Ages 60-69 = 85 mL/min/1.73 sq.m. Ages 70+ = 75 mL/min/1.73 sq.m. Chronic Kidney Disease: Less than 60 mL/min/1.73 square meters End Stage Renal Disease: Less than 15 mL/min/1.73 square meters Performed By: #### C BC, ADIFF, ANEU, PRO, BMP, GFR #### [address] [address] .NEUABSon 03-18-2019 Neutrophils (Bld) [#/Vol] 5.50 10 3/mcL Normal 2.25-8.10 [facility] ([place] Comment on above: Performed By: #### C BC, ADIFF, ANEU, PRO, BMP, GFR #### [address] [address] BMPon 03-18-2019 Calcium [Mass/Vol] 9.0 mg/dL Normal 8.4-10.1 [facility] ([place]) Comment on above: Order Comment: [place] [id number] Performed By: #### C BC, ADIFF, ANEU, PRO, BMP, GFR #### [place] [id number] Chloride [Moles/Vol] 107 mmol/L Normal 98-110 [facility] ([place] Comment on above: Order Comment: [place] [address] Performed By: #### C BC, ADIFF, ANEU, PRO, BMP, GFR #### [place] [address] CO2 [Moles/Vol] 25 mmol/L Normal 22-32 [facility] ([place]) Comment on above: Order Comment: [place] [address] Performed By: #### C BC, ADIFF, ANEU, PRO, BMP, GFR #### [place] [address] Creatinine [Mass/Vol] 0.53 mg/dL Normal 0.50-1.20 [facility] ([place]) Comment on above: Order Comment: [place] [address] Performed By: #### C BC, ADIFF, ANEU, PRO, BMP, GFR #### [place] [address] Electrolyte Balance 8.0 mEq/L Normal 4.0-15.0 [facility] ([place]) Comment on above: Order Comment: [place] [address] Performed By: #### C BC, ADIFF, ANEU, PRO, BMP, GFR #### [place] [id number] Glucose [Mass/Vol] 118 mg/dL High 70-110 [facility] ([place] Comment on above: Order Comment: [place] [address] Performed By: #### C BC, ADIFF, ANEU, PRO, BMP, GFR #### [address] [address] Potassium [Moles/Vol] 4.2 mmol/L Normal 3.5-5.0 [facility] ([place] Comment on above: Order Comment: [place] [address] Performed By: #### C BC, ADIFF, ANEU, PRO, BMP, GFR #### [address] [address] Sodium [Moles/Vol] 140 mmol/L Normal 136-145 [facility] ([place] Comment on above: Order Comment: [place] [address] Performed By: #### C BC, ADIFF, ANEU, PRO, BMP, GFR #### [address] [address] Urea nitrogen [Mass/Vol] 8.0 mg/dL Normal 8.0-22.0 [facility] ([place] Comment on above: Order Comment: [place] [address] Performed By: #### C BC, ADIFF, ANEU, PRO, BMP, GFR #### [address] [address] Urea nitrogen/Creatinine [Mass ratio] 15.1 ratio Normal 10.0-22.0 [facility] ([place] Comment on above: Order Comment: [place] [address] Performed By: #### C BC, ADIFF, ANEU, PRO, BMP, GFR #### [address] [address] CBCon 03-18-2019 Erythrocyte distribution width (RBC) [Ratio] 17.0 % High 11.5-15.5 [facility] ([place] Comment on above: Order Comment: [place] [address] Performed By: #### C BC, ADIFF, ANEU, PRO, BMP, GFR #### [address] [address] Hematocrit (Bld) [Volume fraction] 37.2 % Normal 34.0-46.0 [facility] ([place] Comment on above: Order Comment: [place] [id number] Performed By: #### C BC, ADIFF, ANEU, PRO, BMP, GFR #### [address] [address] Hemoglobin (Bld) [Mass/Vol] 12.2 G/dL Normal 12.0-16.0 [facility] ([place] Comment on above: Order Comment: [place] [address] Performed By: #### C BC, ADIFF, ANEU, PRO, BMP, GFR #### [address] [address] MCH (RBC) [Entitic mass] 24.8 pg Low 27.0-33.0 [facility] ([place]) Comment on above: Order Comment: [place] [id number] Performed By: #### C BC, ADIFF, ANEU, PRO, BMP, GFR #### [address] [address] MCHC (RBC) [Mass/Vol] 32.7 G/dL Normal 32.0-36.0 [facility] ([place]) Comment on above: Order Comment: [place] [id number] Performed By: #### C BC, ADIFF, ANEU, PRO, BMP, GFR #### [address] [address] MCV (RBC) [Entitic vol] 75.9 fL Low 80.0-99.0 [facility] ([place]) Comment on above: Order Comment: [place] [id number] Performed By: #### C BC, ADIFF, ANEU, PRO, BMP, GFR #### [address] [address] Platelet mean volume (Bld) [Entitic vol] 7.5 fL Normal 6.6-10.5 [facility] ([place]) Comment on above: Order Comment: [place] [id number] Performed By: #### C BC, ADIFF, ANEU, PRO, BMP, GFR #### [address] [address] Platelets (Bld) [#/Vol] 515 10 3/mcL High 150-450 [facility] ([place]) Comment on above: Order Comment: [place] [id number] Performed By: #### C BC, ADIFF, ANEU, PRO, BMP, GFR #### [address] [address] RBC (Bld) [#/Vol] 4.91 10 6/mcL Normal 4.10-5.30 [facility] ([place]) Comment on above: Order Comment: [place] [id number] Performed By: #### C BC, ADIFF, ANEU, PRO, BMP, GFR #### [address] [address] WBC (Bld) [#/Vol] 10.20 10 3/mcL Normal 4.50-10.80 [facility] ([place]) Comment on above: Order Comment: [place] [id number] Performed By: #### C BC, ADIFF, ANEU, PRO, BMP, GFR #### [address] [address] IR BIOPSY BONE MARROWon 02-28 IR BIOPSY BONE MARROW ORIGINAL PROCEDURE: 1. Bone marrow aspiration with core biopsy from the LEFT bony ilium with fluoroscopic guidance CLINICAL HISTORY: Leukocytosis. COMPARISON: None. PHOTO EDITOR: Dr. Ca MOLDED GOODS EMBOSSING PRESS OPERATOR: None. MATERIALS UTILIZED: 13G x 15 cm Osteosite biopsy device Syringes: 5 mL and 10 mL Mallet ANESTHESIA: Moderate sedation was provided by administering divided doses of 150 mcg of IV fentanyl and 3 mg of IV midazolam throughout the total intra-service time of 28 minutes during which the patient's hemodynamic parameters were continuously monitored by an independent trained radiology nurse. 16 mL of 2% lidocaine was injected into the skin and subcutaneous soft tissues of the overlying access site. SEDATION TIME: 28 minutes SITE OF ACCESS: Left bony ileum. FLUORO: 1.6 minutes AIR KERMA DOSE: 172.8 mGy TECHNIQUE: This exam was performed according to our departmental dose-optimization program which includes automated exposure control, adjustment of the mA and/or kVp according to patient size and/or use of iterative reconstruction technique where applicable. PROCEDURE: The procedure risks, benefits, and alternatives were discussed with the patient and all questions were answered. Written informed consent was obtained. Accompanying paperwork was verified for accuracy. Directed history and physical exam was performed prior to the procedure. Medication reconciliation was performed by nursing personnel. Procedure was performed using a cap, mask, sterile gloves, a sterile sheet or towels, hand hygiene, and 2% chlorhexidine for cutaneous antisepsis. The patient was positioned prone on the table and prepped and draped in usual sterile fashion. A critical pause was performed with assisting personnel just prior to the procedure with the patient's identity confirmed using 2 identifiers, confirming site and side. Under fluoroscopy, grid lines were placed on the patient overlying the LEFT bony ilium. Unenhanced cone beam CT was performed for better delineation of the anatomy and to assess trajectory for needle placement. An access site overlying the left bony ilium was marked with fluoroscopic guidance. Local anesthesia was administered at the puncture site using 2% lidocaine, through a 25-gauge needle for the skin and a 22-gauge spinal needle followed by a 22-gauge Chiba needle for the deeper subcutaneous soft tissues. After making a tiny dermatotomy, the biopsy needle set was advanced to the left bony ilium using fluoroscopic guidance. Initially, there was difficulty advancing the needle through the cortical bone with a mallet. Therefore, the needle was adjusted to an adjacent site within the LEFT bony ilium. Once at at the site, the biopsy needle set was advanced through the cortical bone using a mallet. The inner stylet was removed. Approximately 15 mL of bone marrow aspirate was aspirated and provided to the laborer wood preserving plant who confirmed the presence of bone spicules. The outer biopsy cannula was then advanced approximately 2 cm using the mallet to obtain a single core sample. A saved fluoroscopic image demonstrates the needle in the left bony ilium, lateral to the SI joint. The cannula was removed and hemostasis achieved with manual compression. A final image was obtained demonstrating that the biopsy device had been removed. The sample was removed from the cannula using the obturator. It was placed in formalin and submitted to pathology. A dry sterile dressing was placed at the access site. The patient tolerated the procedure well. There were no immediate complications. Blood loss was minimal. Patient condition was stable and unchanged. IMPRESSION: Successful fluoroscopic guided bone marrow aspiration and core biopsy. The samples were provided to the laborer wood preserving plant to be sent to pathology for analysis. Interpreted By: Taylor Ca DO Preliminary Report By: Taylor Ca DO Electronically Signed By: Taylor Ca DO Dictated Date: 03/18/2019 3:50:16 PM Prelim Date: 03/18/2019 4:33:11 PM Sign Date: 03/18/2019 6:13:03 PM Normal [facility] ([place]) MOLECULARon 03-18-2019 MOLECULAR PROCEDURE REPORT Specimen #: [id number] Submitting Physician: ANNALEE COKER SPECIMEN SUBMITTED A: BONE MARROW PROCEDURE(S) FISH FOR MYELOPROLIFERATIVE NEOPLASMS Date Ordered: 03/19/2019 Date Reported: 03/23/2019 Procedure Results and Interpretation FISH for Myeloproliferative Neoplasms Specimen Type: Bone marrow Number of nuclei scored: 200 per probe set Results: Reference Range Anomaly Result Bone marrow(%) BCR/ABL1 0% (0-2%) PDGFRA 0% (0-3%) PDGFRB 0% (0-4%) FGFR1 1% (0-5%) INTERPRETATION: Negative for BCR/ABL, PDGFRA, PDGFRB and FGFR1 abnormalities. This result does not exclude the possibility of a myeloproliferative neoplasm. Correlation with metaphase cytogenetic studies may be helpful in further evaluation. METHODOLOGY: Interphase fluorescence in situ hybridization studies were performed using the following probes: BCR/ABL (Dual color, dual fusion probe, [employer], [facility], [place]), PDGFRA (Tricolor rearrangement probe, [employer]), PDGFRB (Dual color, break-apart probe, [employer],[place], [place]), and FGFR1 (Dual color, break-apart probe, [employer]). This test should not be used for the detection of minimal residual disease. Pathologist Interpretation: Osvaldo Alba MD, PhD ANALYTE SPECIFIC REAGENT (ASR) DISCLAIMER This test was developed and its performance characteristics determined by [facility]'s [facility] [place] ([facility]). It has not been cleared or approved by the FDA. -[facility] is regulated under CLIA as qualified to perform high-complexity testing. This test is used for clinical purposes. It should not be regarded as investigational or for research. /[facility] 03/20/2019 Procedure Pathologist: Osvaldo Alba M.D., Ph.D. Electronic Signature CLINICAL DATA None provided. Date of Report: Date of Procedure: 03/18/2019 Date of Receipt: 03/19/2019 Submitted: ANNALEE COKER Location: [facility] Diagnostic interpretation performed at [facility], [address], [facility] [address]. Normal [facility] Reference Lab Comment on above: Performed By: #### C [facility] #### See report for performing lab information. PROon 03-18-2019 INR Coag (PPP) [Relative time] 1.1 {INR} Normal [facility] ([place]) Comment on above: Order Comment: [place] [id number] Result Comment: The [employer] (CHEST, 1992, 102:[id number]-[id number]) recommended therapeutic range for oral anticoagulant therapy is: LOW RISK: Prophylaxis of venous thrombosis INR: 2.0-3.0 Treatment of pulmonary embolism 2.0-3.0 Prevention of systemic embolism 2.0-3.0 HIGH RISK: Mechanical prosthetic valves 2.5-3.5 Performed By: #### C BC, ADIFF, ANEU, PRO, BMP, GFR #### [address] [address] PT Coag (PPP) [Time] 12.8 s Normal 9.0-14.6 [facility] ([place]) Comment on above: Order Comment: [place] [id number] Result Comment: Effe ctive 04/13/08, Protime results may be affected by some antibiotics (i.e. Ciprofloxacin, Azithromycin, Bactrim) which may potentiate the action of oral anticoagulants, with further increases in Protime/INR. Performed By: #### C BC, ADIFF, ANEU, PRO, BMP, GFR #### [address] [address] Vital Signs Date Time Vital Sign Value Performing Clinician Shanice mckeon 01-11-2023 15:47-0400 Body weight 151.96 kg Xiang Ruiz DO Work Phone: [facility] Encounters Encounter Date Encounter Type Care Provider Facility Start: 06-30-2024 End: 06-30-2024 ambulatory Xiang Ruiz DO Work Phone: [facility] [place] Comment on above: ER mix up Start: 06-30-2024 End: 06-30-2024 Telephone encounter Xiang Ruiz DO Work Phone: [facility] [place] Comment on above: Medication Problem Start: 06-20-2024 End: 06-20-2024 ambulatory XIANG RUIZ Facility:[facility] Start: 06-15-2024 End: 06-17-2024 Refill Lisa De La O APRN.THERAPY TEACHER Work Phone: [facility] [place] Comment on above: Refill Request Start: 06-04-2024 End: 06-08-2024 Telephone encounter Xiang Ruiz DO Work Phone: [facility] [place] Comment on above: Orders Start: 06-02-2024 End: 06-04-2024 ambulatory Xiang Ruiz DO Work Phone: [facility] [place] Comment on above: [employer] measurement in fo Start: 05-12-2024 Refill Xiang Golden son DO Work Phone: [facility] [place] Comment on above: Refill Request Start: 04-27-2024 End: 04-27-2024 ambulatory XIANG RUIZ Facility:[facility] Start: 04-24-2024 ambulatory Xiang magallanes DO Work Phone: [facility] [place] Comment on above: Victoza issue Start: 04-24-2024 Telephone encounter Xiang Chávez carriady DO Work Phone: [facility] [place] Comment on above: Medication Problem Start: 04-22-2024 Telephone encounter Xiang simpson DO Work Phone: [facility] [place] Comment on above: Medication Informati on Start: 04-21-2024 End: 04-21-2024 Distance Health Xiang Ruiz DO Work Phone: [facility] [place] Comment on above: Type 2 diabetes karine itus with hyperglycemia, without long-term current use of insulin (HCC) (Primary Dx); Hypertension, essential; Vitamin B12 deficiency; Essential hypertension; Vitamin D deficiency; Dyslipidemia; Gait disorder; Osteoarthritis of spine with radiculopathy, lumbar region; Weakness of both legs; Hair thinning; Acne vulgaris Start: 03-05-2024 Refill Xiang magallanes DO Work Phone: [facility] [place] Comment on above: Refill Request Start: 02-06-2024 End: 02-06-2024 ambulatory TYREE BRIZUELA Facility:[facility] Start: 01-22-2024 End: 01-22-2024 ambulatory Tyree Brizuela MD Work Phone: Pain Management Comment on above: Procedure Instructio ns Chronic left-sided l ow back pain with left-sided sciatica (Primary Dx) Start: 01-22-2024 E-mail encounter fro m caregiver Tyree Brizuela MD Work Phone: Pain Management Start: 01-22-2024 End: 01-22-2024 Patient encounter procedure Tyree Brizuela MD Work Phone: Pain Management Comment on above: Lumbar degenerative disc disease (Primary Dx); Chronic left-sided low back pain with left-sided sciatica Start: 01-16-2024 Refill Lisa De La O MEDICAL BILLING MANAGER.THERAPY TEACHER Work Phone: [facility] [place] Comment on above: Refill Request Instructions for you r upcoming appointment Start: 01-01-2024 Refill Lisa De La O MEDICAL BILLING MANAGER.THERAPY TEACHER Work Phone: [facility] [place] Comment on above: Refill Request Start: 12-25-2023 End: 12-25-2023 ambulatory XIANG L RUIZ Facility:[facility] Start: 12-13-2023 Refill Lisa De La O MEDICAL BILLING MANAGER.THERAPY TEACHER Work Phone: [facility] [place] Comment on above: Refill Request Start: 12-11-2023 Telephone encounter Xiang simpson DO Work Phone: [facility] [place] Start: 12-09-2023 End: 12-09-2023 ambulatory XIANG L RUIZ Facility:[facility] Start: 12-09-2023 Telephone encounter Xiang Chávez arrison DO Work Phone: [facility] [place] Comment on above: Patient Question Start: 12-06-2023 ambulatory Xiang Laura Ivánri son DO Work Phone: [facility] [place] Comment on above: Metformin mix up Start: 12-04-2023 End: 12-04-2023 ambulatory Xiang L Ruiz DO Work Phone: [facility] [place] Comment on above: CRP elevated (Primar y Dx); Chronic left-sided low back pain with left-sided sciatica; Type 2 diabetes mellitus with hyperglycemia, without long-term current use of insulin (HCC); Morbid obesity with BMI of 60.0-69.9, adult (HCC); Vitamin B12 deficiency; Hyperlipidemia, mixed; Situational anxiety; Left sided sciatica; Tinea corporis; Seasonal allergic rhinitis due to other allergic trigger Blood pressure Start: 12-04-2023 End: 12-04-2023 Telemedicine consultation with patient Xiang Ruiz DO Work Phone: [facility] [place] Start: 09-05-2023 Refill Tiki hudson MEDICAL BILLING MANAGER.[facility] Work Phone: [facility] [place] Comment on above: Refill Request Start: 05-30-2023 Telephone encounter Roxana Abrams MEDICAL BILLING MANAGER.THERAPY TEACHER Work Phone: [facility] [place] Comment on above: Results Start: 04-26-2023 End: 04-26-2023 ambulatory Xiang Ruiz DO Work Phone: [facility] [place] Comment on above: Left sided sciatica (Primary Dx); Chronic left-sided low back pain with left-sided sciatica; Type 2 diabetes mellitus with hyperglycemia, without long-term current use of insulin (HCC); Morbid obesity with BMI of 60.0-69.9, adult (HCC); Dysmetabolic syndrome; Vitamin B12 deficiency; Hyperlipidemia, mixed Start: 04-26-2023 End: 04-26-2023 Telemedicine consultation with patient Xiang Ruiz DO Work Phone: [facility] [place] Start: 04-25-2023 Refill Xiang magallanes DO Work Phone: [facility] [place] Comment on above: Refill Request Start: 04-10-2023 Refill Lisa De La O APRN.[facility] Work Phone: [facility] [place] Comment on above: Refill Request Start: 01-18-2023 ambulatory Xiang magallanes DO Work Phone: [facility] [place] Start: 01-18-2023 Letter encounter Xiang garsia DO Work Phone: [facility] [place] Comment on above: Jury duty letter Start: 01-11-2023 End: 01-11-2023 ambulatory Xiang Ruiz DO Work Phone: [facility] [place] Comment on above: Situational anxiety (Primary Dx); Type 2 diabetes mellitus with hyperglycemia, without long-term current use of insulin (HCC); Morbid obesity with BMI of 60.0-69.9, adult (HCC); Left sided sciatica; Chronic left-sided low back pain with left-sided sciatica; Dysmetabolic syndrome Start: 01-11-2023 End: 01-11-2023 Telemedicine consultation with patient Xiang Ruiz DO Work Phone: [facility] [place] Start: 06-20-2022 End: 06-20-2022 Subsequent hospital visit by physician X[facility] [place] Work Phone: Radiology Comment on above: Acute pain of right knee [M25.561] Start: 01-26-2021 Patient Outreach Jacques Loya [address] [address] Work Phone: [facility] [employer] Comment on above: MARY ANNE OUTREACH Start: 01-24-2021 End: 01-24-2021 ambulatory UNKNOWN PROVIDER Facility:[facility] Start: 01-10-2021 ambulatory UNKNOWN PROVIDER Facili ty:[facility] Start: 01-10-2021 End: 01-15-2021 Evaluation and management of inpatient IP PHYSICAL THERAPY SERVICE REQUEST Facility:[facility] Procedures Date Procedure Procedure Detail Performing Clinician Start: 06-20-2022 Radiologic exam knee complete 4/more views Xiang Ruiz DO Work Phone: Plan of Treatment Date Care Activity Detail Author Start: 12-13-2043 Shingles (RZV) Vacci ne (1 of 2) Shingles (RZV) Vaccine (1 of 2) [facility] Start: 04-09-2028 Tetanus vaccination Tetanus (T d or Tdap) Booster [facility] Start: 04-09-2028 Urine microalbumin profile [facility] Start: 06-20-2025 Hepatitis B surface antibody level LDL Cholesterol [facility] Start: 04-27-2025 Hepatitis B surface antibody level LDL Cholesterol [facility] Start: 04-21-2025 Annual PCP Team Insurance Advisor calli Disease Visit Annual PCP Team Chronic Disease Visit [facility] Start: 04-21-2025 Diabetic foot examination Diabetic Foot Exam [facility] Start: 12-24-2024 Annual PCP Team Insurance Advisor calli Disease Visit Annual PCP Team Chronic Disease Visit [facility] Start: 12-08-2024 Hepatitis B surface antibody level LDL Cholesterol [facility] Start: 12-03-2024 Annual PCP Team Insurance Advisor calli Disease Visit Annual PCP Team Chronic Disease Visit [facility] Start: 09-19-2024 Hemoglobin A1c measurement HbA1C [facility] Start: 08-17-2024 End: 08-17-2024 Follow-up encounter 08/17/2024 3:00 PM [facility] [place] [address] [facility] [place] [address] Xiang Ruiz DO [address] [facility] [address] Follow up [facility] [place] Comment on above: Follow up Start: 07-28-2024 Hemoglobin A1c measurement HbA1C [facility] Start: 06-20-2024 End: 06-20-2024 ambulatory 06/20/2024 11:15 AM EDT Results Only [place] [facility] Draw Station [address] [facility] [place] [address] [place] [facility] Draw Station Start: 06-10-2024 Hemoglobin A1c measurement HbA1C [facility] Start: 05-31-2024 Covid-19 Vaccine ( season) Covid-19 Vaccine ( season) [facility] Start: 05-31-2024 Influenza vaccination Influenza Vacc ine (#1) [facility] Start: 04-27-2024 End: 04-27-2024 ambulatory 04/27/2024 1:30 PM EDT Results Only [place] [facility] Draw Station [address] [facility] [place] [address] [place] [facility] Draw Station Start: 04-26-2024 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 ANNUAL PCP TEAM CHRONIC DISEASE VISIT [facility] Start: 04-21-2024 End: 04-21-2024 Follow-up encounter 04/21/2024 3:00 PM EDT [facility] [place] [address] [place] [address] Xiang Ruiz DO [address] [place] [address] Follow up [facility] [place] Comment on above: Follow up Start: 04-21-2024 End: 07-21-2024 25-hydroxyvitamin D3 [Mass/volume] in Serum or Plasma VITAMIN D 25 HYDROXY Lab Routine Vitamin D deficiency Expected: 04/21/2024, Expires: 07/21/2024 [facility] Comment on above: Expected: 04/21/2024 , Expires: 07/21/2024 Start: 04-21-2024 End: 07-21-2024 CBC W Auto Differential panel - Blood COMPLETE BLOOD COUNT AND DIFFERENTIAL Lab Routine Type 2 diabetes mellitus with hyperglycemia, without long-term current use of insulin (HCC) Expected: 04/21/2024, Expires: 07/21/2024 [facility] Comment on above: Expected: 04/21/2024 , Expires: 07/21/2024 Start: 04-21-2024 End: 07-21-2024 Cobalamin (Vitamin B12) [Mass/volume] in Serum or Plasma VITAMIN B12 Lab Routine Vitamin B12 deficiency Expected: 04/21/2024, Expires: 07/21/2024 [facility] Work Phone: Comment on above: Expected: 04/21/2024 , Expires: 07/21/2024 Start: 04-21-2024 End: 07-21-2024 Comprehensive metabolic 2000 panel - Serum or Plasma COMPREHENSIVE METABOLIC PANEL Lab Routine Type 2 diabetes mellitus with hyperglycemia, without long-term current use of insulin (HCC) Vitamin B12 deficiency Expected: 04/21/2024, Expires: 07/21/2024 [facility] Comment on above: Expected: 04/21/2024 , Expires: 07/21/2024 Start: 04-21-2024 End: 07-21-2024 Hemoglobin A1c in Blood HEMOGLOBIN A1C Lab Routine Type 2 diabetes mellitus with hyperglycemia, without long-term current use of insulin (HCC) Expected: 04/21/2024, Expires: 07/21/2024 [facility] Comment on above: Expected: 04/21/2024 , Expires: 07/21/2024 Start: 04-21-2024 End: 07-21-2024 Lipid 1996 panel - Serum or Plasma LIPID PANEL BASIC Lab Routine Dyslipidemia Expected: 04/21/2024, Expires: 07/21/2024 [facility] Comment on above: Expected: 04/21/2024 , Expires: 07/21/2024 Start: 04-12-2024 Hepatitis B surface antibody level LDL CHOLESTEROL [facility] Start: 02-06-2024 Subsequent hospital visit by physician 02/06/2024 Hospital Encounter [facility] [address] [place] [address] Tyree Brizuela MD [address] [facility] [id number] [place] [address] Chronic left-sided low back pain with left-sided sciatica [M54.42, G89.29] [facility] Comment on above: Chronic left-sided l ow back pain with left-sided sciatica [M54.42, G89.29] Start: 01-12-2024 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 ANNUAL PCP TEAM CHRONIC DISEASE VISIT [facility] Start: 12-13-2023 Screening for malign ant neoplasm of cervix HPV Testing [facility] Start: 12-04-2023 End: 03-04-2024 C reactive protein [Mass/volume] in Serum or Plasma C-REACTIVE PROTEIN (CRP) Lab Routine CRP elevated Expected: 12/04/2023, Expires: 03/04/2024 [facility] Work Phone: Comment on above: Expected: 12/04/2023 , Expires: 03/04/2024 Start: 12-04-2023 End: 03-04-2024 Cobalamin (Vitamin B12) [Mass/volume] in Serum or Plasma VITAMIN B12 BLOOD Lab Routine Vitamin B12 deficiency Expected: 12/04/2023, Expires: 03/04/2024 [facility] Work Phone: Comment on above: Expected: 12/04/2023 , Expires: 03/04/2024 Start: 12-04-2023 End: 03-04-2024 Comprehensive metabolic 2000 panel - Serum or Plasma COMP METABOLIC PANEL Lab Routine Type 2 diabetes mellitus with hyperglycemia, without long-term current use of insulin (HCC) Expected: 12/04/2023, Expires: 03/04/2024 [facility] Work Phone: Comment on above: Expected: 12/04/2023 , Expires: 03/04/2024 Start: 12-04-2023 End: 03-04-2024 Hemoglobin A1c in Blood HGB A1C Lab Routine Type 2 diabetes mellitus with hyperglycemia, without long-term current use of insulin (HCC) Expected: 12/04/2023, Expires: 03/04/2024 [facility] Work Phone: Comment on above: Expected: 12/04/2023 , Expires: 03/04/2024 Start: 12-04-2023 End: 03-04-2024 Lipid 1996 panel - Serum or Plasma LIPID PANEL BASIC Lab Routine Hyperlipidemia, mixed Expected: 12/04/2023, Expires: 03/04/2024 [facility] Work Phone: Comment on above: Expected: 12/04/2023 , Expires: 03/04/2024 Start: 12-04-2023 End: 03-04-2024 Thyrotropin [Units/volume] in Serum or Plasma TSH BLD Lab Routine Type 2 diabetes mellitus with hyperglycemia, without long-term current use of insulin ([facility]) Expected: 12/04/2023, Expires: 03/04/2024 [facility] Work Phone: Comment on above: Expected: 12/04/2023 , Expires: 03/04/2024 Start: 10-13-2023 Hemoglobin A1c measurement HbA1C [facility] Start: 10-13-2023 Hemoglobin A1c/Hemoglobin.total in Blood HBA1C [facility] Start: 10-03-2023 BP CONTROLLED (<130/80) BP CONTROLLE D (<130/80) [facility] Start: 07-03-2023 Hemoglobin A1c/Hemoglobin.total in Blood HBA1C [facility] Start: 06-30-2023 Influenza vaccination Influenza Vacc ine (#1) [facility] Start: 06-20-2023 Hepatitis B surface antibody level LDL CHOLESTEROL [facility] Start: 05-31-2023 Covid-19 Vaccine () Covid-19 Vaccine () [facility] Start: 05-31-2023 Influenza vaccination INFLUENZA (#1) [facility] Start: 04-26-2023 End: 06-26-2023 PAIN PANEL, UR QUANT PAIN PANEL, UR QUANT Lab Routine Left sided sciatica Chronic left-sided low back pain with left-sided sciatica Expected: 04/26/2023, Expires: 06/26/2023 [facility] Work Phone: Comment on above: Expected: 04/26/2023 , Expires: 06/26/2023 Start: 04-26-2023 End: 06-26-2023 TOX SCREEN ROUT UR TOX SCREEN ROUT UR Lab Routine Left sided sciatica Chronic left-sided low back pain with left-sided sciatica Expected: 04/26/2023, Expires: 06/26/2023 [facility] Work Phone: Comment on above: Expected: 04/26/2023 , Expires: 06/26/2023 Start: 04-12-2023 End: 06-12-2023 Comprehensive metabolic 2000 panel - Serum or Plasma COMP METABOLIC PANEL Lab Routine Type 2 diabetes mellitus with hyperglycemia, without long-term current use of insulin (HCC) Expected: 04/12/2023, Expires: 06/12/2023 [facility] Work Phone: Comment on above: Expected: 04/12/2023 , Expires: 06/12/2023 Start: 04-12-2023 End: 06-12-2023 Hemoglobin A1c in Blood HGB A1C Lab Routine Type 2 diabetes mellitus with hyperglycemia, without long-term current use of insulin (HCC) Expected: 04/12/2023, Expires: 06/12/2023 [facility] Work Phone: Comment on above: Expected: 04/12/2023 , Expires: 06/12/2023 Start: 04-12-2023 End: 06-12-2023 Lipid 1996 panel - Serum or Plasma LIPID PANEL BASIC Lab Routine Dysmetabolic syndrome Expected: 04/12/2023, Expires: 06/12/2023 [facility] Work Phone: Comment on above: Expected: 04/12/2023 , Expires: 06/12/2023 Start: 01-16-2022 COVID-19 VACCINE (4 - Booster for Pfizer series) COVID-19 VACCINE (4 - Booster for Pfizer series) [facility] Start: 01-16-2022 COVID-19 VACCINE (4 - Pfizer series) COVID-19 VACCINE (4 - Pfizer series) [facility] Start: 05-14-2019 Screening for malign ant neoplasm of cervix Pap Testing [facility] Start: 05-14-2017 PAP TESTING PAP TESTING [facility] Start: 05-14-2017 Screening for malign ant neoplasm of cervix [facility] Start: 10-19-2015 PNEUMOCOCCAL (2 - PCV) PNEUMOCOCCAL (2 - PCV) [facility] Start: 10-19-2015 Pneumococcal vaccination [facility] Start: 2014 Screening for malign ant neoplasm of cervix Pap Smear [facility] Start: 12-13-2011 HEPATITIS C SCREENING HEPATITIS C SC REENING [facility] Start: 12-13-2011 Hepatitis C screening [facility] Start: 12-13-2011 HIV SCREENING HIV SCREENING [facility] Start: 12-13-2011 HIV screening HIV Screening [facility] Start: 2008 HIV screening HIV Test [facility] Start: 12-13-2003 3 comp foot exam completed DIABETIC FOOT EXAM [facility] Start: 12-13-2003 Diabetic foot examination Diabetic Foot Exam [facility] Start: 12-13-2003 Glaucoma screening Dilated Retinal E xam [facility] Start: 12-13-2003 Hepatitis B screening URINE ALBUMIN:CREATININE RATIO [facility] Start: 12-13-2003 Hepatitis C antibody , confirmatory test DILATED RETINAL EXAM [facility] Start: 1993 HEPATITIS B (1 of 3 - 3-dose series) HEPATITIS B (1 of 3 - 3-dose series) [facility] Njx dx/ther sbst intrlmnr lmbr/sac w/img gdn LUMBAR EPIDURAL BLOCK W/INJECTION NON NEUROLYTIC W/IMAGE GUIDANCE Chronic left-sided low back pain with left-sided sciatica [facility] End: 02-20-2025 Njx dx/ther sbst intrlmnr lmbr/sac w/img gdn EPI LUMBAR OR SACRAL W/IMAGING Procedures Routine Chronic left-sided low back pain with left-sided sciatica 1 Occurrences starting 01/22/2024 until 02/20/2025 [facility] Work Phone: Comment on above: 1 Occurrences starti ng 01/22/2024 until 02/20/2025 [facility] Immunizations Immunization Date Immunization Notes Care Provider Suzanne gaviria 06-20-2024 COVID-19 vaccine (NOVAVAX) Xiang Ruiz DO Work Phone: [facility] 06-20-2024 influenza, seasonal, injectable Xiang Ruiz DO Work Phone: [facility] 06-15-2023 influenza, injectabl e, quadrivalent, preservative free 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 free, 30 mcg/0.3mL dose, kathrin-sucrose (WPJ=536) Jacques Groze [employer] Work Phone: [facility] 08-24-2021 influenza, injectabl e, quadrivalent, preservative free Jacques Groze [employer]PER[employer]OR [employer] Work Phone: [facility] 12-25-2020 Pfizer Monovalent (1 2+ yrs) SARS-COV-2 (COVID-19) vaccine, mRNA, spike protein, LNP, pres. free, 30 mcg/0.3mL dose ([id number]=520) Jacques Groze [employer]OR [employer] Work Phone: [facility] 06-29-2020 influenza, seasonal, injectable Xiang Ruiz DO Work Phone: [facility] 08-01-2019 influenza, seasonal, injectable Xiang Ruiz DO Work Phone: [facility] 10-15-2018 Human Papillomavirus 9-valent vaccine Xiang Ruiz DO Work Phone: [facility] Work Phone: 05-15-2018 Human Papillomavirus 9-valent vaccine Xiang Ruiz DO Work Phone: [facility] Work Phone: 04-09-2018 Human Papillomavirus 9-valent vaccine Xiang Ruiz DO Work Phone: [facility] Work Phone: 04-09-2018 tetanus toxoid, redu sarah diphtheria toxoid, and acellular pertussis vaccine, adsorbed Xiang Ruiz DO Work Phone: [facility] Work Phone: 07-19-2017 influenza virus vacc ine, unspecified formulation Xiang Ruiz DO Work Phone: [facility] 10-19-2014 pneumococcal polysaccharide vaccine, 23 valent Xiang Ruiz DO Work Phone: [facility] Work Phone: 08-27-2011 influenza, seasonal, injectable Jacques Groze [employer] Work Phone: [facility] 07-14-2009 influenza, seasonal, injectable Ajcques Groze [employer]PER[employer]OR [employer] Work Phone: [facility] 03-01-2009 human papilloma viru s vaccine, quadrivalent Jacques Groze [employer]PER[employer]OR [employer] Work Phone: [facility] 10-05-2008 human papilloma viru s vaccine, quadrivalent Jacques Groze [employer]PER[employer]OR [employer] Work Phone: [facility] 07-31-2008 influenza, seasonal, injectable 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 Groze 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 [employer] [facility] 06-13-1999 diphtheria, tetanus toxoids and acellular pertussis vaccine, unspecified formulation [employer] Work Phone: [facility] 02-15-1999 measles, mumps and rubella virus vaccine Jacques [employer] Work Phone: [facility] 02-15-1999 trivalent poliovirus vaccine, live, oral Jacques [employer] [facility] 06-28-1995 diphtheria, tetanus toxoids and pertussis vaccine Jacques [employer] [facility] 06-28-1995 trivalent poliovirus vaccine, live, oral Jacques [employer] [facility] 05-17-1995 varicella virus vaccine Jacques [email or web address] Work Phone: [facility] 04-12-1995 haemophilus influenz ae type b vaccine, conjugate unspecified formulation [employer] Work Phone: [facility] 07-11-1994 hepatitis B vaccine, pediatric or pediatric/adolescent dosage [employer] Work Phone: [facility] 06-20-1994 diphtheria, tetanus toxoids and pertussis vaccine Jacques [email or web address] Work Phone: [facility] 06-20-1994 haemophilus influenz ae type b vaccine, conjugate unspecified formulation Jacques [employer] Work Phone: [facility] 04-18-1994 diphtheria, tetanus toxoids and pertussis vaccine Jacques [employer] Work Phone: [facility] 04-18-1994 haemophilus influenz ae type b vaccine, conjugate unspecified formulation Jacques [employer] Work Phone: [facility] 04-18-1994 trivalent poliovirus vaccine, live, oral [employer] Work Phone: [facility] 02-14-1994 diphtheria, tetanus toxoids and pertussis vaccine Jacques [employer] Work Phone: [facility] 02-14-1994 haemophilus influenz ae type b vaccine, conjugate unspecified formulation Jacques ROSA Work Phone: [facility] 02-14-1994 hepatitis B vaccine, pediatric or pediatric/adolescent dosage Jacques Loya [employer]PERVISOR [employer] Work Phone: [facility] 02-14-1994 trivalent poliovirus vaccine, live, oral Jacques [employer] Work Phone: [facility] 01-03-1994 hepatitis B vaccine, pediatric or pediatric/adolescent dosage Jacques [employer] Work Phone: [facility] Payers Date Payer Category Payer Medicaid [id number] 2020 Medicaid [id number] 2019 Medicaid [id number] 1993 Unknown [id number] 1993 Unknown [id number] 1993 Unknown [id number] Social History Date Type Detail Facility Start: 04-09-2018 End: 02-26-2023 Tobacco smoking status HIIS Never smoked tobacco [facility] Work Phone: Start: 04-09-2018 End: 02-26-2023 Tobacco use and exposure Smokeless tobacco non-user [facility] Work Phone: Start: 07-10-2022 End: 02-06-2024 Alcohol intake Current non-drinker of alcohol (finding) [facility] Start: 10-01-2022 History SDOH Alcohol Frequency 2 [facility] Start: 10-01-2022 History SDOH Alcohol Std Drinks 1 [facility] Start: 10-01-2022 History SDOH Social Connections Phone 5 [facility] Start: 01-02-2023 History SDOH Social Connections [employer] 98 [facility] Start: 10-01-2022 History SDOH Social Connections Living 6 [facility] Start: 10-01-2022 History SDOH Physical Activity DPW 3 [facility] Start: 10-01-2022 History SDOH Stress 4 [facility] Start: 11-29-2019 Education 14 [facility] Start: 1995 Sex Assigned At Female [facility] Start: 09-30-2022 End: 04-26-2023 History of Social function [facility] Start: 09-30-2022 End: 04-26-2023 Social connection and isolation panel [facility] How often do you att end adventist or caodaism services? Patient refused [facility] Do you belong to any clubs or organizations such as adventist groups, unions, fraternal or athletic groups, or school groups? No [facility] Are you now , , , , never or living with a partner? [facility] How often to you hav e a drink containing alcohol? Monthly or less [facility] How many standard dr inks containing alcohol do you have on a typical day? 1 or 2 [facility] How often do you hav e 6 or more drinks on 1 occasion? Never [facility] How hard is it for y ou to pay for the very basics like food, housing, medical care, and heating Somewhat hard [facility] Do you feel stress - tense, restless, nervous, or anxious, or unable to sleep at night because your mind is troubled all the time - these days [OSQ] Rather much [facility] (I/We) worried wheishan er (my/our) food would run out before (I/we) got money to buy more. Sometimes true [facility] The food that (I/we) bought just didn't last, and (I/we) didn't have money to get more. Often true [facility] Start: 01-12-2023 Gender identity Identifies as female gender (finding) [facility] consumption unknown [facility] Work Phone: Start: 1995 Sex Assigned At Not on file [facility] Start: 12-11-2020 End: 01-10-2021 Exposure to SARS-CoV-2 (event) Not sure [facility] Are you now , , , , never or living with a partner? Refused [facility] How often do you hav e 6 or more drinks on 1 occasion? Less than monthly [facility] How hard is it for y ou to pay for the very basics like food, housing, medical care, and heating Very hard [facility] Do you feel stress - tense, restless, nervous, or anxious, or unable to sleep at night because your mind is troubled all the time - these days [OSQ] Very much [facility] In the past 12 month s, was there a time when you were not able to pay the mortgage or rent on time? Yes [facility] Medical Equipment Procedure Code Equipment Code Equipment Original Text Equipment Identifier Dates [id number], [id number], [id number] Start: 07-09-2022 Comment on above: Test blood sugar(s) 2 times daily. Dx: Type 2 DM - Uncontrolled E11.65 Insulin: No Clinical Notes 01-11-2021 to 06-30-2024 Telephone Encounter - Meagan Lindsey MA - 06/30/2024 12:12 PM EDTTelephone Encounter - Meagan Lindsey MA - 06/30/2024 12:12 PM EDXiang Ulloa DO - 04/21/2024 3:40 PM EDT Note Date & Type Note Facility 06-30-2024 Telephone encounter Note Pt informed via CloudSponge Message Meagan Lindsey MA [facility] 06-30-2024 Miscellaneous Notes Pt informed via [employer] Message Meagan Lindsey MA Reviewed ED note. Cipro sent to the pharmacy. F/u if not improving, sooner if worsening The following approved medication requests have been transmitted electronically. Requested Prescriptions Signed Prescriptions Disp Refills ciprofloxacin HCl (CIPRO) 500 mg tablet 14 tablet 0 Sig: Take 1 tablet by mouth two times a day for 7 days. Authorizing Provider: PRASHANTH BAIRD PA-C Images from the original note were not included. Please see pt MC message -- Please see ER report- Scan on 06/30/2024 3:11 AM by Provider, NOEMY Duran: Consultation - Emergency Medicine [facility] My Chart Rx Pool (supporting Xiang Ruiz DO)1 hour ago (9:42 AM) BT I got the name confused it s cipro but yeah for some reason it is in my medication list but they never got it at the pharmacy [facility]ward[facility] My Chart Rx Pool (supporting Xiang Ruiz DO)1 hour ago (9:42 AM) BT I got the name confused it s cipro but yeah for some reason it is in my medication list but they never got it at the pharmacy [facility] Loyola [facility] My Chart Rx Pool (supporting Xiang Ruiz DO)1 hour ago (9:35 AM) BT Hello I was in the emergency room for a kidney stone and uti I was supposed to be given ghazal for an antibiotic but when my friend went to go pick it up they hadn t gotten one for my antibiotics so I was wondering if the doctor could send in my antibiotic prescription as I allen need them documented in this encounter [facility] 06-30-2024 Telephone encounter Note Reviewed ED note. Cipro sent to the pharmacy. F/u if not improving, sooner if worsening The following approved medication requests have been transmitted electronically. Requested Prescriptions Signed Prescriptions Disp Refills ciprofloxacin HCl (CIPRO) 500 mg tablet 14 tablet 0 Sig: Take 1 tablet by mouth two times a day for 7 days. Authorizing Provider: PRASHANTH BAIRD PA-C [facility] 06-30-2024 Telephone encounter Note Images from the original note were not included. Please see pt MC message -- Please see ER report- Scan on 06/30/2024 3:11 AM by Provider, External, NOEMY: Consultation - Emergency Medicine [facility] My Chart Rx Pool (supporting Xiang Ruiz DO)1 hour ago (9:42 AM) BT I got the name confused it s cipro but yeah for some reason it is in my medication list but they never got it at the pharmacy Iker Rivera Hussain [facility] My Chart Rx Pool (supporting Xiang Ruiz DO)1 hour ago (9:42 AM) BT I got the name confused it s cipro but yeah for some reason it is in my medication list but they never got it at the pharmacy [facility]ward[facility] My Chart Rx Pool (supporting Xiang Ruiz DO)1 hour ago (9:35 AM) BT Hello I was in the emergency room for a kidney stone and uti I was supposed to be given ghazal for an antibiotic but when my friend went to go pick it up they hadn t gotten one for my antibiotics so I was wondering if the doctor could send in my antibiotic prescription as I allen need them [facility] 06-30-2024 Telephone encounter Note Turned into TE Meagan Lindsey MA [facility] 06-30-2024 Miscellaneous Notes Turned into TE Meagan Lindsey MA documented in this encounter [facility] 06-15-2024 Telephone encounter Note Prescription Refill Information The patient has been identified by name and date of : Yes Caregiver verified no other encounters exist for this prescription request: Yes Caregiver confirmed with patient/requestor that no other refills are due, in the near future, with this provider at this time: Yes The last office visit in the department: 04/21/24 Does the patient have a future office visit with this provider/department: Yes 08/17/24 Requested Prescriptions Pending Prescriptions Disp Refills losartan-hydroCHLOROthiazide (HYZAAR) 100-12.5 mg per tablet 30 tablet 1 Sig: Take 1 tablet by mouth once daily. Lily Marrero LPN June 15, 2024 1:27 PM [facility] 06-15-2024 Miscellaneous Notes Prescription Refill Information The patient has been identified by name and date of : Yes Caregiver verified no other encounters exist for this prescription request: Yes Caregiver confirmed with patient/requestor that no other refills are due, in the near future, with this provider at this time: Yes The last office visit in the department: 04/21/24 Does the patient have a future office visit with this provider/department: Yes 08/17/24 Requested Prescriptions Pending Prescriptions Disp Refills losartan-hydroCHLOROthiazide (HYZAAR) 100-12.5 mg per tablet 30 tablet 1 Sig: Take 1 tablet by mouth once daily. Lily Marrero LPN June 15, 2024 1:27 PM documented in this encounter [facility] 06-08-2024 Telephone encounter Note Order with [facility] 04/21/24 documented need for wheelchair printed. Faxed to [facility]: [phone]. Vivien Ozuna MA [facility] 06-08-2024 Miscellaneous Notes Order with [facility] 04/21/24 documented need for wheelchair printed. Faxed to [facility]: [phone]. Vivien Ozuna MA Wheelchair ordered with measurements-please print and fax below. Please let me know if you need a different order Prashanth Baird PA-C Not at all sure how to load this order. Please load order needed Xiang Ruiz DO Images from the original note were not included. Please see provider message -- [facility] My Chart Rx Pool (supporting Xiang Ruiz DO)2 days ago BT Sunny I am having my prescription for my wheelchair filled by [facility] here in [place] and they asked me to measure how wide my hips were for the chair so they can get an idea of what they need to order and then they wanted me to send this info to my doctor and have you guys fax it to them so my measurement is 30 inches and their fax number is [phone] thank you documented in this encounter [facility] 06-08-2024 Telephone encounter Note Wheelchair ordered with measurements-please print and fax below. Please let me know if you need a different order Prashanth Baird PA-C [facility] 06-08-2024 Telephone encounter Note Not at all sure how to load this order. [facility] 06-08-2024 Telephone encounter Note Please load order needed Xiang Ruiz DO [facility] 06-04-2024 Telephone encounter Note Images from the original note were not included. Please see provider message -- [facility] My Chart Rx Pool (supporting Xiang Ruiz DO)2 days ago BT Genevajeronimo I am having my prescription for my wheelchair filled by [facility] here in [place] and they asked me to measure how wide my hips were for the chair so they can get an idea of what they need to order and then they wanted me to send this info to my doctor and have you guys fax it to them so my measurement is 30 inches and their fax number is [phone] thank you [facility] 06-04-2024 Telephone encounter Note Turned into TE Meagan Lindsey MA [facility] 06-04-2024 Miscellaneous Notes Turned into TE Meagan Lindsey MA documented in this encounter [facility] 05-13-2024 Telephone encounter Note [facility]-04/21/24 Labs-12/09/23 NOV- My chart message sent. Lily Marrero LPN [facility] 05-13-2024 Miscellaneous Notes [facility]-04/21/24 Labs-12/09/23 NOV- My chart message sent. Lily Marrero LPN documented in this encounter [facility] 04-24-2024 Telephone encounter Note Pt informed via Voy[employer]ByMehart message Meagan Lindsey MA [facility] 04-24-2024 Miscellaneous Notes Pt informed via Voy[employer] message Meagan Lindsey MA The following approved medication requests have been transmitted electronically. Requested Prescriptions Signed Prescriptions Disp Refills pen needle, diabetic, safety (COMFORT EZ PRO SAFETY PEN NDL) 31 gauge x 3/16 ndle 100 Each 1 Sig: Use SQ daily with Victoza pen. Authorizing Provider: XIANG RUIZ Ordering User: ROXANA OCASIO APRN.CNP 31G 5mm per pharmacy Meagan Lindsey MA I'm not sure what size needles for Victoza? If we can find this out, I can get them sent in. Roxana Ocasio APRN.THERAPY TEACHER Please see pt MC message -- I went to take my victoza today and read three the instructions and watched a video I found of someone using it and I realized I wasn t given any needle tips with it so I can t use it without having those if the doctor could send in a prescription for them I d appreciate it since I don t have then little needle tips documented in this encounter [facility] 04-24-2024 Telephone encounter Note The following approved medication requests have been transmitted electronically. Requested Prescriptions Signed Prescriptions Disp Refills pen needle, diabetic, safety (COMFORT EZ PRO SAFETY PEN NDL) 31 gauge x 3/16 ndle 100 Each 1 Sig: Use SQ daily with Victoza pen. Authorizing Provider: XIANG RUIZ Ordering User: ROXANA OCASIO APRN.CNP [facility] 04-24-2024 Telephone encounter Note 31G 5mm per pharmacy Meagan Lindsey MA [facility] 04-24-2024 Telephone encounter Note I'm not sure what size needles for Victoza? If we can find this out, I can get them sent in. Roxana Ocasio APRN.THERAPY TEACHER [facility] 04-24-2024 Telephone encounter Note Please see pt message -- I went to take my victoza today and read three the instructions and watched a video I found of someone using it and I realized I wasn t given any needle tips with it so I can t use it without having those if the doctor could send in a prescription for them I d appreciate it since I don t have then little needle tips [facility] 04-24-2024 Telephone encounter Note Turned into TE Meagan Lindsey MA [facility] 04-24-2024 Miscellaneous Notes Turned into TE Meagan Lindsey MA documented in this encounter [facility] 04-22-2024 Telephone encounter Note Noted. Thank you, Lisa De La O APRN.THERAPY TEACHER [facility] 04-22-2024 Miscellaneous Notes Noted. Thank you, Lisa De La O APRN.THERAPY TEACHER Eliseo from [facility] pharmacy calls and states that they received order for Victoza. Eliseo states that when provider titrates medication up then provider will have to send in new prescription for this. Eliseo will process prescription as the 0.6 mg but per insurance new prescription will have to be sent if medication is increased. Alexus Alonso RN documented in this encounter [facility] 04-22-2024 Telephone encounter Note Eliseo from [facility] pharmacy calls and states that they received order for Victoza. Eliseo states that when provider titrates medication up then provider will have to send in new prescription for this. Eliseo will process prescription as the 0.6 mg but per insurance new prescription will have to be sent if medication is increased. Alexus Alonso RN [facility] 04-21-2024 Note HNO ID: [id number] Author: XIANG RUIZ, DO Service: ? Author Type: Physician Type: Progress Notes Filed: 04/21/2024 16:46 Note Text: VIRTUAL VISIT PROGRESS NOTE This is a virtual visit using BeSmartom Video Visit. It required patient-provider interaction for the medical decision making as documented below. I have communicated my name and active licensure. The patient's identity and physical location were verified at the time of this visit. Either the patient or their legal inbound sales representative has been informed of the risks and benefits of -- and alternatives to -- treatment through a remote evaluation and consents to proceed with the evaluation remotely. Marcei Loyola is a 28 year old female seen for follow up Recurrent UTI and kidney stones, multiple stone removal procedures and 2 separate ureteral stents placed and removed by [employer] Dr. Lunsford. This has caused multiple EMERGENCY DEPARTMENT and hospital visits. Taking Flomax and Urosidiol medication to see if this allows her to pass the 2 remaining kidney stones that are still present. Next appt in May 01 with UROGYN. Type 2 diabetes, last labs in November Hx of vitamin d and b12 deficiency, taking supplements. HTN, taking medication as prescribed. Lumbar DJD and DDD, had lumbar spine injection by Dr. Brizuela recently with not good benefit for pain control. This is limiting her ability for a long distance when her leg muscles feel weak and sometimes she doesn't feel that the cane or rollator is helpful enough for her to feel balanced. She is interested in access to having a wheelchair when she has gait difficulty and pain Nauseated and vomiting when she doesn't eat soon enough in the AM Type 2 diabetes- has had dificulty with getting trulicity medication for her blood glucose control for the last 3 months. She would like to try an alternative Hair is thinning. Has been taking minoxidil topically for the last 7 months Acne, present the last few weeks, hasn't had this for the last 10 + years since has been a teenager. Present on lower cheeks and face. Has tried over the counter BZO and other alternatives without resolution HISTORY REVIEWED (electronic chart updated): PAST MEDICAL [...] Use Topics Alcohol use: No Drug use: Yes Frequency: 2.0 times per week Types: Marijuana Current Outpatient Medications Medication Sig losartan-hydroCHLOROthiazide (HYZAAR) 100-12.5 mg per tablet Take 1 tablet by mouth once daily. pregabalin (LYRICA) 75 mg capsule Take 1 capsule by mouth three times a day as needed (lumbar low back pain and sciatica) for up to 30 days. valACYclovir (VALTREX) 500 mg tablet Take 1 tablet by mouth once daily. meloxicam (MOBIC) 15 mg tablet Take 1 tablet by mouth once daily. For back pain, With food. cyanocobalamin (VITAMIN B-12) 1,000 mcg tab Take 1 tablet by mouth once daily. dulaglutide (TRULICITY) 4.5 mg/0.5 mL pen injector Inject 4.5 mg subcutaneously one time a week. blood sugar diagnostic (BLOOD GLUCOSE TEST) test strip Test blood sugar(s) 2 times daily. Dx: Type 2 DM - Uncontrolled E11.65 Insulin: No cyclobenzaprine (FLEXERIL) 10 mg tablet Take 1 tablet by mouth three times a day as needed for muscle spasm. metFORMIN (GLUCOPHAGE) 1,000 mg tablet Take 1 tablet by mouth two times a day with meals. metFORMIN (GLUCOPHAGE) 500 mg tablet Take 1 tablet by mouth daily with dinner. Add to 1000 mg tablet to total 1500 mg at supper ondansetron orally disintegrating (ZOFRAN ODT) 4 mg disintegrating tablet Take 1 tablet by mouth every 8 hours as needed for nausea/vomiting. loratadine (CLARITIN (more content not included)... [facility] 04-21-2024 History of Presen t illness Narrative VIRTUAL VISIT PROGRESS NOTE This is a virtual visit using Rently[employer] Zoom Video Visit. It required patient-provider interaction for the medical decision making as documented below. I have communicated my name and active licensure. The patient's identity and physical location were verified at the time of this visit. Either the patient or their legal inbound sales representative has been informed of the risks and benefits of -- and alternatives to -- treatment through a remote evaluation and consents to proceed with the evaluation remotely. Marcie Loyola is a 28 year old female seen for follow up Recurrent UTI and kidney stones, multiple stone removal procedures and 2 separate ureteral stents placed and removed by [employer] Dr. Lunsford. This has caused multiple EMERGENCY DEPARTMENT and hospital visits. Taking Flomax and Urosidiol medication to see if this allows her to pass the 2 remaining kidney stones that are still present. Next appt in May 01 with UROGYN. Type 2 diabetes, last labs in November Hx of vitamin d and b12 deficiency, taking supplements. HTN, taking medication as prescribed. Lumbar DJD and DDD, had lumbar spine injection by Dr. Brizuela recently with not good benefit for pain control. This is limiting her ability for a long distance when her leg muscles feel weak and sometimes she doesn't feel that the cane or rollator is helpful enough for her to feel balanced. She is interested in access to having a wheelchair when she has gait difficulty and pain Nauseated and vomiting when she doesn't eat soon enough in the AM Type 2 diabetes- has had dificulty with getting trulicity medication for her blood glucose control for the last 3 months. She would like to try an alternative Hair is thinning. Has been taking minoxidil topically for the last 7 months Acne, present the last few weeks, hasn't had this for the last 10 + years since has been a teenager. Present on lower cheeks and face. Has tried over the counter BZO and other alternatives without resolution HISTORY REVIEWED (electronic chart updated): PAST MEDICAL [...] current use of insulin ([facility]) 07/10/2022 Vitamin D deficiency 09/2014 PAST [...] Use Topics Alcohol use: No Drug use: Yes Frequency: 2.0 times per week Types: Marijuana Current Outpatient Medications Medication Sig losartan-hydroCHLOROthiazide (HYZAAR) 100-12.5 mg per tablet Take 1 tablet by mouth once daily. pregabalin (LYRICA) 75 mg capsule Take 1 capsule by mouth three times a day as needed (lumbar low back pain and sciatica) for up to 30 days. valACYclovir (VALTREX) 500 mg tablet Take 1 tablet by mouth once daily. meloxicam (MOBIC) 15 mg tablet Take 1 tablet by mouth once daily. For back pain, With food. cyanocobalamin (VITAMIN B-12) 1,000 mcg tab Take 1 tablet by mouth once daily. dulaglutide (TRULICITY) 4.5 mg/0.5 mL pen injector Inject 4.5 mg subcutaneously one time a week. blood sugar diagnostic (BLOOD GLUCOSE TEST) test strip Test blood sugar(s) 2 times daily. Dx: Type 2 DM - Uncontrolled E11.65 Insulin: No cyclobenzaprine (FLEXERIL) 10 mg tablet Take 1 tablet by mouth three times a day as needed for muscle spasm. metFORMIN (GLUCOPHAGE) 1,000 mg tablet Take 1 tablet by mouth two times a day with meals. metFORMIN (GLUCOPHAGE) 500 mg tablet Take 1 tablet by mouth daily with dinner. Add to 1000 mg tablet to total 1500 mg at supper ondansetron orally disintegrating (ZOFRAN ODT) 4 mg disintegrating tablet Take 1 tablet by mouth every 8 hours as needed for nausea/vomiting. loratadine (CLARITIN) 10 mg tablet Take 1 tablet by mouth once daily. For allergies albuterol HFA (PROAIR HFA) 90 mcg/actuation inhaler Inhale 2 Puffs as instructed every 6 hours as needed. triamcinolone acetonide (KENALOG) 0.1 % cream Apply 1 application to affected area two times a day as needed (rash on legs). Apply sparingly to area for rash/itching. traZODone (DESYREL) 100 mg tablet Take 1-2 tablets by mouth daily at bedtime. fluconazole (DIFLUCAN) 200 mg tablet Take 1 tablet PO once x 1 day, then repeat on days 3, 5, 7, and 9 rizatriptan (MAXALT [employer] SERVICES TECHNICIAN) 5 mg disintegrating tablet Take 1 tablet by mouth as needed for migraine headache (see administration instructions). May repeat in 2 hours if needed Lancets lancets Test blood sugar(s) 2 times daily. Dx: Type 2 DM - Uncontrolled E11.65 Insulin: No WALKER ROLLATOR SEAT WITH 6 WHEELS - RED Dx: balance disorder, bilateral knee pain, chronic low back pain naproxen (NAPROSYN) 500 mg tablet Take 1 tablet by mouth twice daily as needed for Pain (for pain). Take with food baclofen (LIORESAL) 10 mg tablet Take 1 tablet by mouth three times daily as needed (Muscle spasms). ibuprofen (MOTRIN) 800 mg tablet Take 1 [...] this visit. ALLERGIES Allergen Reactions Onion Anaphylaxis [place] Oil Hives, Swelling, Itching REVIEW OF SYSTEMS: As noted in HPI PHYSICAL EXAMINATION: VIDEO EXAM: (if completed, performed via video enabled technology) GENERAL: alert and appropriate, in no distress, well-hydrated, well nourished, and obese, facial acne ASSESSMENT: (E11.65) Type 2 diabetes mellitus with hyperglycemia, without long-term current use of insulin (HCC) (primary encounter diagnosis) (I10) Hypertension, essential (E53.8) Vitamin B12 deficiency (I10) Essential hypertension (E55.9) Vitamin D deficiency (E78.5) Dyslipidemia (R26.9) 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 Start on Victoza 0.6 mg. Titrate up dose as needed There are no Patient Instructions on file for this visit. I spent a total of 45 minutes on the date of the service which included preparing to see the patient, [id number] patient care, completing clinical documentation, obtaining and/or reviewing separately obtained history, performing a medically appropriate examination, and ordering medications, tests, or procedures Xiang Ruiz DO documented in this encounter [facility] 03-06-2024 Telephone encounter Note 12/25/23 Labs-12/09/2304/21/24 Lily Marrero LPN [facility] 03-06-2024 Miscellaneous Notes 12/25/23 Labs-12/09/23Jul-04/21/24 Lliy Marrero LPN documented in this encounter [facility] 01-22-2024 Nurse Note Patient scheduled for injection during today's OV. Patient scheduled for: February 06, 2024 Reviewed instructions. Hold the following medication(s): Diabetic Instructions discussed during OV and paper copy of instructions handed to patient. Patient verbalized understanding. [facility] 01-22-2024 Nurse Note Patient scheduled for injection during today's OV. Patient scheduled for: February 06, 2024 Reviewed instructions. Hold the following medication(s): Diabetic Instructions discussed during OV and paper copy of instructions handed to patient. Patient verbalized understanding. documented in this encounter [facility] 01-22-2024 Note HNO ID: [id number] Author: TYREE BRIZUELA MD Service: ? Author Type: Physician Type: Progress Notes Filed: 01/22/2024 15:00 Note Text[facility] Date: January 22, 2024 - 1:23 PM Marcie Loyola is seen in consultation requested by Dr. Xiang Ruiz for an opinion regarding chronic lower back pain. My final recommendations will be communicated back to the requesting physician by way of shared medical record or via [place] mail. Chief Complaint: back pain SUBJECTIVE: Marcie Loyola, is a 28 year old female who presents with lower back pain. The pain started years ago, with no known injury or trauma. The pain has been off and on. . The pain onset was gradual in nature. The patient states that the current pain is intermittent and persistent. Her pain is located in the bilateral lumbar region and radiates to left lower extremity along lateral aspect to the level of ankle. // The pain is described as burning, weakness, numbness, pressure, radiating, spasm, and stiffness. The pain intensity is rated 7. The pain is exacerbated by walking, standing, sitting, lying down, moving too quickly, and bending down and relieved by lying down or lying down on tennis ball. Symptoms interfere with physical activity, sleeping, sitting, bathing, driving, cooking, household cleaning, and lifting. 70% pain in spine vs 30% (radiating) pain in the extremity. Litigation: No. Worker's Compensation: No. Prior pain treatment has included: Physical therapy: In 2019 with no relief Medication: Aleve and back AND body Injection: 12/14/20 - Interlaminar Epidural Injection L4-L5 Left paramedian approach (Dr. Neal) with relief Patient Entered Questionnaires PROMIS Score Percentiles 04/19/2023 09/15/2023 12/19/2023 PROMIS Global Health Scale Physical Health Percentile 4 2 4 Mental Health Percentile 13 26* 19* 07/13/2020 01/03/2021 01/15/2024 Physical Health Physical Function Percentile 3 1 4 Pain Interference Percentile 2 2 5 Percentiles provide an indication of how the patient's score ranks in relation to the general population. Higher percentile rankings indicate better function/quality of life. 50th percentile is the average of the general population and indicates half of respondents had a worse score. > 31st percentile is within normal limits or better * < 31st percentile is at least ? SD worse than population, which may be clinically relevant < 16th percentile is at least 1 SD worse than population and warrants attention ALLERGIES Allergen Reactions Onion Anaphylaxis [place] Oil Hives, Swelling, Itching Current Medications: Pain medications reviewed and reconciled in the medication list: Yes. Current Outpatient Medications Medication Sig cholecalciferol, Vitamin D3, (VITAMIN D3) 1,250 mcg (50,000 unit) cap capsule Take 1 capsule by mouth one time a week. pregabalin (LYRICA) 75 mg capsule Take 1 capsule by mouth three times a day as needed (lumbar low back pain and sciatica) for up to 30 days. valACYclovir (VALTREX) 500 mg tablet Take 1 tablet by mouth once daily. meloxicam (MOBIC) 15 mg tablet Take 1 tablet by mouth once daily. For back pain, With food. losartan-hydroCHLOROthiazide (HYZAAR) 100-12.5 mg per tablet Take 1 tablet by mouth once daily. cyanocobalamin (VITAMIN B-12) 1,000 mcg tab Take 1 tablet by mouth once daily. dulaglutide (TRULICITY) 4.5 mg/0.5 mL pen injector Inject 4.5 mg subcutaneously one time a week. blood sugar diagnostic (BLOOD GLUCOSE TEST) test strip Test blood sugar(s) 2 times daily. Dx: Type 2 DM - Uncontrolled E11.65 Insulin: No cyclobenzaprine (FLEXERIL) 10 mg tablet Take 1 tablet by mouth three times a day as needed for muscle spasm. metFORMIN (GLUCOPHAGE) 1,000 mg tablet Take 1 tablet by mouth two times a day with meals. metFORMIN (GLUCOPHAGE) 500 mg tablet Take 1 tablet by mouth daily with dinner. Add to 1000 mg tablet to total 1500 mg at supper ondansetron orally disintegrating (ZOFRAN ODT) 4 mg disintegrating tablet Take 1 tablet by mouth every 8 hours as needed for nausea/vomiting. loratadine (CLARITIN) 10 mg tablet Take 1 tablet by mouth once daily. For allergies albuterol HFA (PROAIR HFA) 90 mcg/actuation inhaler Inhale 2 Puffs as instructed every 6 hours as needed. triamcinolone acetonide (KENALOG) 0.1 [...] 3, 5, 7, and 9 rizatriptan ([employer] TECHNICIAN) 5 mg disintegrating tablet Take 1 tablet by mouth as needed for migra (more content not included)... [facility] 01-22-2024 History of Presen t illness Narrative [facility] Pain Management Department Date: January 22, 2024 - 1:23 PM Marcie Loyola is seen in consultation requested by Dr. Xiang Ruiz for an opinion regarding chronic lower back pain. My final recommendations will be communicated back to the requesting physician by way of shared medical record or via [place] mail. Chief Complaint: back pain SUBJECTIVE: Marcie Loyola, is a 28 year old female who presents with lower back pain. The pain started years ago, with no known injury or trauma. The pain has been off and on. . The pain onset was gradual in nature. The patient states that the current pain is intermittent and persistent. Her pain is located in the bilateral lumbar region and radiates to left lower extremity along lateral aspect to the level of ankle. // The pain is described as burning, weakness, numbness, pressure, radiating, spasm, and stiffness. The pain intensity is rated 7. The pain is exacerbated by walking, standing, sitting, lying down, moving too quickly, and bending down and relieved by lying down or lying down on tennis ball. Symptoms interfere with physical activity, sleeping, sitting, bathing, driving, cooking, household cleaning, and lifting. 70% pain in spine vs 30% (radiating) pain in the extremity. Litigation: No. Worker's Compensation: No. Prior pain treatment has included: Physical therapy: In 2019 with no relief Medication: Aleve and back & body Injection: 12/14/20 - Interlaminar Epidural Injection L4-L5 Left paramedian approach (Dr. Neal) with relief Patient Entered Questionnaires PROMIS Score Percentiles 04/19/2023 09/15/2023 12/19/2023 PROMIS Global Health Scale Physical Health Percentile 4 2 4 Mental Health Percentile 13 26* 19* 07/13/2020 01/03/2021 01/15/2024 Physical Health Physical Function Percentile 3 1 4 Pain Interference Percentile 2 2 5 Percentiles provide an indication of how the patient's score ranks in relation to the general population. Higher percentile rankings indicate better function/quality of life. 50th percentile is the average of the general population and indicates half of respondents had a worse score. > 31st percentile is within normal limits or better * < 31st percentile is at least SD worse than population, which may be clinically relevant < 16th percentile is at least 1 SD worse than population and warrants attention ALLERGIES Allergen Reactions Onion Anaphylaxis [place] Oil Hives, Swelling, Itching Current Medications: Pain medications reviewed and reconciled in the medication list: Yes. Current Outpatient Medications Medication Sig cholecalciferol, Vitamin D3, (VITAMIN D3) 1,250 mcg (50,000 unit) cap capsule Take 1 capsule by mouth one time a week. pregabalin (LYRICA) 75 mg capsule Take 1 capsule by mouth three times a day as needed (lumbar low back pain and sciatica) for up to 30 days. valACYclovir (VALTREX) 500 mg tablet Take 1 tablet by mouth once daily. meloxicam (MOBIC) 15 mg tablet Take 1 tablet by mouth once daily. For back pain, With food. losartan-hydroCHLOROthiazide (HYZAAR) 100-12.5 mg per tablet Take 1 tablet by mouth once daily. cyanocobalamin (VITAMIN B-12) 1,000 mcg tab Take 1 tablet by mouth once daily. dulaglutide (TRULICITY) 4.5 mg/0.5 mL pen injector Inject 4.5 mg subcutaneously one time a week. blood sugar diagnostic (BLOOD GLUCOSE TEST) test strip Test blood sugar(s) 2 times daily. Dx: Type 2 DM - Uncontrolled E11.65 Insulin: No cyclobenzaprine (FLEXERIL) 10 mg tablet Take 1 tablet by mouth three times a day as needed for muscle spasm. metFORMIN (GLUCOPHAGE) 1,000 mg tablet Take 1 tablet by mouth two times a day with meals. metFORMIN (GLUCOPHAGE) 500 mg tablet Take 1 tablet by mouth daily with dinner. Add to 1000 mg tablet to total 1500 mg at supper ondansetron orally disintegrating (ZOFRAN ODT) 4 mg disintegrating tablet Take 1 tablet by mouth every 8 hours as needed for nausea/vomiting. loratadine (CLARITIN) 10 mg tablet Take 1 tablet by mouth once daily. For allergies albuterol HFA (PROAIR HFA) 90 mcg/actuation inhaler Inhale 2 Puffs as instructed every 6 hours as needed. triamcinolone acetonide (KENALOG) 0.1 [...] 3, 5, 7, and 9 rizatriptan ([employer] SERVICES TECHNICIAN) 5 mg disintegrating tablet Take 1 tablet by mouth as needed for migraine headache (see administration instructions). May repeat in 2 hours if needed Lancets lancets Test blood sugar(s) 2 times daily. Dx: Type 2 DM - Uncontrolled E11.65 Insulin: No WALKER ROLLATOR SEAT WITH 6 WHEELS - RED Dx: balance disorder, bilateral knee pain, chronic low back pain naproxen (NAPROSYN) 500 mg tablet Take 1 tablet by mouth twice daily as needed for Pain (for pain). Take with food baclofen (LIORESAL) 10 mg tablet Take 1 tablet by mouth three times daily as needed (Muscle spasms). ibuprofen (MOTRIN) 800 mg tablet Take 1 [...] Take 1 tablet by mouth once daily. COMPOUNDED PRESCRIPTION Order: BLOOD PRESSURE cuff Dx: essential hypertension albuterol 90 mcg/actuation aero Inhale 2 Puffs as instructed every 4 hours as needed. No current facility-administered medications for this visit. PAST MEDICAL HISTORY Diagnosis Date Anemia 2007 iron deficiency Asthma mild intermittent allergic related Cannabis use, uncomplicated discordant urine 05/30/2023, do not prescribe controlled substances Depression seasonal Dyslexia Essential hypertension Fatty liver 2009 Hard of hearing LEFT EAR, congenital Hypercholesteremia 09/2014 Impaired fasting glucose 09/2014 Type 2 diabetes mellitus with hyperglycemia, without long-term current use of insulin ([facility]) 07/10/2022 Vitamin D deficiency 09/2014 PAST [...] Maternal Aunt Psychiatry Maternal Aunt BIPOLAR Social History: Alcohol Use: No Tobacco Use: Never Drug Use: No Employer And Job Title: No employer specified (UNEMPLOYED) Years Of Education Completed: 12 years Marital Status: Legally with no children REVIEW OF SYSTEMS: Constitutional: (-) Fever (-) Night Sweats (-) Weight Gain (-) Weight Loss (-) Fatigue Cardiovascular: (+) Chest Pain (-) Palpitations (-) Lightheadedness (+) Swelling of Ankles (-) Hx Heart Surgery Respiratory: (-) Shortness of Breath (-) Cough (-) Wheezing (-) Snoring Gastrointestinal: (-) Incontinence (-) Abdominal Pain (+) Diarrhea (-) Constipation (+) Nausea/Vomiting (-) Heart Burn Endocrine: (-) Thyroid Disorder (+) Diabetes Hematologic: (-) Prolonged Bleeding (+) Easy Bruising Genitourinary: (-) Incontinence (-) Frequency (-) Urinary Urgency Skin: (-) Rashes (-) Itching (-) Other Lesions Neurologic: (-) Headache (-) Double Vision (-) Confusion (-) Paralysis (-) Vertigo (-) Syncope Psychiatric: (-) Depression (+) Anxiety OARRS Report reviewed: Yes Narcotic Agreement reviewed and signed?: N/A Baseline Urine Toxicology obtained: N/A Urine Panel: Lab Results Component Value Date Cannabinoid Quant, Urine 35 (H) 05/17/2023 Benzoylecgonine Quant, Urine <24 05/17/2023 6-Acetylmorphine Quant, Urine <5 05/17/2023 Amphetamine Quant, Urine <5 05/17/2023 Methamphetamine Quant, Urine <8 05/17/2023 Buprenorphine Quant, Urine <20 05/17/2023 Norbuprenorphine Quant, Urine <20 05/17/2023 Methadone Quant, Urine <16 05/17/2023 EDDP Quant, Urine <6 05/17/2023 Tramadol Quant, Urine <25 05/17/2023 Desmethyltramadol Quant, Urine <20 05/17/2023 Fentanyl Quant, Urine <6 05/17/2023 Norfentanyl Quant, Urine <6 05/17/2023 Codeine Quant, Urine <11 05/17/2023 Morphine Quant, Urine <10 05/17/2023 Dihydrocodeine Quant, Urine <5 05/17/2023 Hydrocodone Quant, Urine <8 05/17/2023 Oxycodone Quant, Urine <10 05/17/2023 Hydromorphone Quant, Urine <5 05/17/2023 Oxymorphone Quant, Urine <5 05/17/2023 The pain panel was N/A OBJECTIVE: Performed in conjunction with observation. The patient was alert and oriented x3. The patient was in no acute distress. Lungs: Clear, negative for dyspnea or distress. CVR: Negative for SOB or peripheral edema. Neck: Supple. The range of motion was intact. Negative focal tenderness Back: Range of motion of the trunk was limited due to pain and truncal obesity. Bilateral lumbosacral tenderness. SLR: Positive on the left at 90 degrees elevation Facet Loading: Equivocal with axial loading and extension. SI joint: Negative PSIS tenderness. Extremities: no reported edema or erythema. Motor: Negative focal deficits Sensory: Intact light touch and sharp throughout the lower extremities Gait: Slow to stand with slight flexed posture. Otherwise, within normal limits Medical record and diagnostic tests reviewed for today's visit: The [facility] EMR was reviewed during the visit IMAGING STUDIES: No new imaging studies were reviewed during this office visit. ASSESSMENT: (M54.42, G89.29) Chronic left-sided low back pain with left-sided sciatica Discussion: A discussion was entertained regarding multicomponent pain source. Discussed conservative options and focus on improvement of function and the concerns of ongoing or developing chronic pain. Discussed the rationale behind interventional approach and how it can facilitate improvement of pain but also diagnostic information that procedures provide. material spreader use of any opioid pain medication is discouraged in chronic benign pain. PLAN: 1. The patient has history of L4-5 lumbar disc displacement. The patient underwent an epidural steroid injection 2020 with good improvement. She is having back pain with left radicular pain symptoms. Recommend repeating the injection. 2. Pain interventional procedure recommended: Left paramedian L4-5 lumbar interlaminar epidural steroid injection 3. No new medication was prescribed 4. Counseled patient regarding the importance of activity modification and exercise. 5. Follow up: 4 to 6 weeks postinjection The above plan and management options were discussed with patient. The patient is in agreement with the above and verbalized understanding. I have discussed and confirmed the above treatment plan with the patient and I have reviewed the nurses notes and I am aware of the family/social history. I have confirmed ROS findings. Tyree Brizuela MD 1. This document has been created with the use of voice recognition technology. It may contain inaccuracies: (e.g. misspellings, inaccurate syntax or word sense) that have escaped review. 2. The nurse practitioner, nursing staff and medical assistants are a major part of YOUR TREATMENT TEAM and will be handling your phone calls and inquiries, if any. Unless explicitly told otherwise at the time of your office visit, your study results and ensuing treatment plans will be discussed during your follow-up appointment. If you do not have a follow-up appointment and wish to discuss any issues, please set up an appointment. 3. It is my practice to not fill disability or any other insurance-related forms/documentation. All of the office notes, study results, and other pertinent documentation generated as part of your evaluation will be available to you and to your Primary Care Physician (PCP). Use of this material to complete such forms will be at the discretion of your PCP/referring physician. January 22, 2024 cc: Xiang Ruiz [address] [facility] [place] [place] [id number] Results of consultation to be transmitted via electronic medical record for those providers who practice within [facility] or with access to [employer] via [facility], or via letter. documented in this encounter [facility] 01-16-2024 Miscellaneous Notes PDMP website checked and validated. All prescriptions have been APPROPRIATELY filled. No suspicious activity was identified. 01/16/2024 by Lisa De La O APRN.CNP The following approved medication requests have been transmitted electronically. Requested Prescriptions Signed Prescriptions Disp Refills pregabalin (LYRICA) 75 mg capsule 90 capsule 2 Sig: Take 1 capsule by mouth three times a day as needed (lumbar low back pain and sciatica) for up to 30 days. Authorizing Provider: LISA DE LA O APRN.CNP Patient has been identified by name and date of : Yes, Provider Dr. Ruiz Date 01/16/24 Time 7:59 Patient phones for refill(s): Requested Prescriptions Pending Prescriptions Disp Refills pregabalin (LYRICA) 75 mg capsule 90 capsule 2 Sig: Take 1 capsule by mouth three times a day as needed (lumbar low back pain and sciatica) for up to 30 days. Date of last office visit in primary care: 04/08/2020 Date of next office visit in primary care: 04/21/2024 Please advise. Thank you. Keena Otoole LPN. documented in this encounter [facility] 01-16-2024 Miscellaneous Notes Patient has been identified by name and date of : Yes, Provider Dr. Ruiz Date 01/16/24 Time 8:00 Patient phones for refill(s): Requested Prescriptions Pending Prescriptions Disp Refills cholecalciferol, Vitamin D3, (VITAMIN D3) 1,250 mcg (50,000 unit) cap capsule 4 capsule 2 Sig: Take 1 capsule by mouth one time a week. Date of last office visit in primary care: 04/08/2020 Date of next office visit in primary care: 01/16/2024 Please advise. Thank you. Keena Otoole LPN. documented in this encounter [facility] 01-01-2024 Miscellaneous Notes Patient has been identified by name and date of : Yes Patient phones for refill(s): Requested Prescriptions Pending Prescriptions Disp Refills valACYclovir (VALTREX) 500 mg tablet 30 tablet 11 Sig: Take 1 tablet by mouth once daily. meloxicam (MOBIC) 15 mg tablet 30 tablet 2 Sig: Take 1 tablet by mouth once daily. For back pain, With food. Date of last office visit in primary care: 04/08/2020 (in office); 12/25/23 (virtual) Date of next office visit in primary care: 04/21/2024 Please advise. Thank you. Gerson Zuleta LPN. documented in this encounter [facility] 12-27-2023 Note HNO ID: [id number] Author: ?, ?, ? Service: ? Author Type: ? Type: Progress Notes Filed: 12/27/2023 11:32 Note Text: POPULATION HEALTH NAVIGATION OUTREACH Action/[facility] Support: Called pt to schedule an appt in Pain Management. Lvm for pt to call [phone] for scheduling. Reason for Outreach Care Gap/HCC or Scheduling Wellness Visits Care Gaps due: Specialty Scheduling Patient Contacted: Unable or unnecessary to reach patient: Left message Navigation Signature: Clarisa Humphrey December 27, 2023 11:31 AM [facility] 12-27-2023 Note Patient Outreach (NE TNAV) MARCIE LOYOLA ([id number]) 1995 F T Date Time Provider Department 12/27/23 NO PCP NETNAV During your visit today, we recorded the following information about you: Clarisa Humphrey 12/27/2023 11:32 AM Signed POPULATION HEALTH NAVIGATION OUTREACH Action/[facility] Support: Called pt to schedule an appt in Pain Management. Lvm for pt to call [phone] for scheduling. Reason for Outreach Care Gap/HCC or Scheduling Wellness Visits Care Gaps due: Specialty Scheduling Patient Contacted: Unable or unnecessary to reach patient: Left message Navigation Signature: Clarisa Humphrey December 27, 2023 11:31 AM Allergies As of Date: 12/27/2023 Noted Allergy Reaction ONION 07/21/2013 10 - Anaphylaxis PINE OIL 07/21/2013 4 - Hives 7 - Swelling 9 - Itching Date Reviewed: 02/26/2023 Reviewed by: Laurie Ortega LPN - Fully Assessed Prescriptions as of 12/27/2023 - losartan-hydroCHLOROthiazide (HYZAAR) 100-12.5 mg per tablet Take 1 tablet by mouth once daily. - cyanocobalamin (VITAMIN B-12) 1,000 mcg tab Take 1 tablet by mouth once daily. - dulaglutide (TRULICITY) 4.5 mg/0.5 mL pen injector Inject 4.5 mg subcutaneously one time a week. - blood sugar diagnostic (BLOOD GLUCOSE TEST) test strip Test blood sugar(s) 2 times daily. Dx: Type 2 DM - Uncontrolled E11.65 Insulin: No - cyclobenzaprine (FLEXERIL) 10 mg tablet Take 1 tablet by mouth three times a day as needed for muscle spasm. - metFORMIN (GLUCOPHAGE) 1,000 mg tablet Take 1 tablet by mouth two times a day with meals. - pregabalin (LYRICA) 75 mg capsule Take 1 capsule by mouth three times a day as needed (lumbar low back pain and sciatica) for up to 30 days. - metFORMIN (GLUCOPHAGE) 500 mg tablet Take 1 tablet by mouth daily with dinner. Add to 1000 mg tablet to total 1500 mg at supper - ketoconazole (NIZORAL) 2 % cream Apply to affected area two times a day as needed (rash). - ondansetron orally disintegrating (ZOFRAN ODT) 4 mg disintegrating tablet Take 1 tablet by mouth every 8 hours as needed for nausea/vomiting. - loratadine (CLARITIN) 10 mg tablet Take 1 tablet by mouth once daily. For allergies - albuterol HFA (PROAIR HFA) 90 mcg/actuation inhaler Inhale 2 Puffs as instructed every 6 hours as needed. - valACYclovir (VALTREX) 500 mg tablet Take 1 tablet by mouth once daily. - meloxicam (MOBIC) 15 mg tablet Take 1 tablet by mouth once daily. For back pain, With food. - triamcinolone acetonide (KENALOG) 0.1 % cream Apply 1 application to affected area two times a day as needed (rash on legs). Apply sparingly to area for rash/itching. - cholecalciferol, Vitamin D3, (VITAMIN D3) 1,250 mcg (50,000 unit) cap capsule Take 1 capsule by mouth one time a week. - permethrin (ELIMITE) 5 % cream Apply to all areas of the body from the neck to soles of feet; leave on for 8 to 14 hours before removing by washing (shower or bath) - traZODone (DESYREL) 100 mg tablet Take 1-2 tablets by mouth daily at bedtime. - fluconazole (DIFLUCAN) 200 mg tablet Take 1 tablet PO once x 1 day, then repeat on days 3, 5, 7, and 9 - rizatriptan (MAXALT SOCIAL SERVICES TECHNICIAN) 5 mg disintegrating tablet Take 1 tablet by mouth as needed for migraine headache (see administration instructions). May repeat in 2 hours if needed - Lancets lancets Test blood sugar(s) 2 times daily. Dx: Type 2 DM - Uncontrolled E11.65 Insulin: No - WALKER ROLLATOR SEAT WITH 6 WHEELS - RED Dx: balance disorder, bilateral knee pain, chronic low back pain - naproxen (NAPROSYN) 500 mg tablet Take 1 tablet by mouth twice daily as needed for Pain (for pain). Take with food - baclofen (LIORESAL) 10 mg tablet Take 1 tablet by mouth three times daily as needed (Muscle spasms). - ibuprofen (MOTRIN) 800 mg tablet Take 1 tablet by mouth every 8 hours as needed for Pain. Take with food. - lidocaine (SALONPAS) 4 % patch Apply 1 application as directed once daily. - cyclobenzaprine (FLEXERIL) 10 mg tablet Take 1 tablet by mouth twice daily as needed for Muscle Spasm. - EPINEPHrine (EPIPEN) 0.3 mg/0.3 mL auto-injector Use as directed for allergic reaction - cholecalciferol (VITAMIN D3) 5,000 unit tab Take 1 tablet by mouth once daily. - COMPOUNDED PRESCRIPTION Order: BLOOD PRESSURE cuff Dx: essential hypertension - albuterol 90 mcg/actuation aero Inhale 2 Puffs as instructed every 4 hours as needed. 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 [facility] 12-25-2023 Note HNO ID: [id number] Author: XIANG RUIZ, DO Service: ? Author Type: Physician Type: Progress Notes Filed: 12/25/2023 11:06 Note Text: In lieu of an in [...] NOTE This is a virtual visit using [employer] Zoom Video Visit. It required patient-provider interaction for the medical decision making as documented below. I have communicated my name and active licensure. The patient's identity and physical location were verified at the time of this visit. Either the patient or their legal inbound sales representative has been informed of the risks and benefits of -- and alternatives to -- treatment through a remote evaluation and consents to proceed with the evaluation remotely. Marcie Loyola is a 28 year old female seen for follow up. HTN, patient states that all of the sudden her BLOOD PRESSURE elevated to 200s/100s a few weeks ago. She was seen in the EMERGENCY DEPARTMENT when she noticed this. Her BLOOD PRESSURE was normal 1 week prior Labs in the hospital showed hemoglobin of 12, WBC >12, platelets 492,000, normal liver and real function. She was fully evaluated with ECG and ECHO- showed mild to moderate LVH, EF 55%. 160/80-90s now after starting on lisinopril 20 mg a day- would like to change back to losartan and HCTZ medication which she tolerated well in past. She says that currently this AM 175/101 and pulse 86. She is asymptomatic. She is working on dietary changes. Chronic low back pain, sciatica, flared up for the last few months, causing leg numbness and tingling. Makes it difficult for her to be as active. Using NSAID and muscle relaxant. Would like to make a follow up with pain mgmt for another injection if able. Type 2 diabetes, taking medications as prescribed. Hemoglobin A1C Date Value Ref Range Status 12/09/2023 6.4 (H) 4.3 - 5.6 % Final Comment: [place] [employer] guidelines indicate that patients with HgbA1c in the range 5.7-6.4% are at increased risk for development of diabetes, and intervention by lifestyle modification may be beneficial. HgbA1c greater or equal to 6.5% is considered diagnostic of diabetes. 04/12/2023 7.1 (H) 4.3 - 5.6 % Final Comment: [place] [employer] guidelines indicate that patients with HgbA1c in the range 5.7-6.4% are at increased risk for development of diabetes, and intervention by lifestyle modification may be beneficial. HgbA1c greater or equal to 6.5% is considered diagnostic of diabetes. 01/01/2023 5.9 (H) 4.3 - 5.6 % Final Comment: [place] [employer] guidelines indicate that patients with HgbA1c in the range 5.7-6.4% are at increased risk for development of diabetes, and intervention by lifestyle modification may be beneficial. HgbA1c greater or equal to 6.5% is considered diagnostic of diabetes. 09/12/2022 6.2 (H) 4.3 - 5.6 % Final Comment: [place] [employer] guidelines indicate that patients with HgbA1c in the range 5.7-6.4% are at increased risk for development of diabetes, and intervention by lifestyle modification may be beneficial. HgbA1c greater or equal to 6.5% is considered diagnostic of diabetes. 06/20/2022 6.9 (H) 4.3 - 5.6 % Final Comment: [place] [employer] guidelines indicate that patients with HgbA1c in the range 5.7-6.4% are at increased risk for development of diabetes, and intervention by lifestyle modification may be beneficial. HgbA1c greater or equal to 6.5% is considered diagnostic of diabetes. HISTORY REVIEWED (electronic chart updated): PAST MEDICAL HISTORY Diagnosis Date Anemia 2008 [...] Maternal Grandfather LUNG CANCER Arthritis Maternal Uncle Asthm (more content not included)... [facility] 2023 Miscellaneous Notes Pt returned call and given provider's message below with verbalized understanding. Lft message to return call. Please inform patient that her recent labs are showing improvements in her cholesterol, blood glucose as well as her inflammation markers. Her A1c is down to 6.4% and cholesterol is markedly improved Xiang Ruiz DO documented in this encounter [facility] 12-11-2023 Miscellaneous Notes Pt was notified script was sent. The following approved medication requests have been transmitted electronically. Requested Prescriptions Signed Prescriptions Disp Refills cyclobenzaprine (FLEXERIL) 10 mg tablet 90 tablet 0 Sig: Take 1 tablet by mouth three times a day as needed for muscle spasm. Authorizing Provider: XIANG RUIZ Ordering User: ROXANA OCASIO APRN.CNP Could you also please let the doctor know that when I picked up my prescriptions that I didn t see the one for the cyclobenzaprine as we had agreed to putting me back on it to help my back and such and I wanted to know if there was a change to that or if she just forgot or something if you could send it over to the pharmacy if nothing has changed there I d appreciate it or let me know if there s an issue. documented in this encounter [facility] 12-06-2023 Miscellaneous Notes NAEEM: 12/04/23 VV with PCP NOV: No FM appt scheduled at this time Last refill: 06/26/23 With 60 and 3 refills Vivien Ozuna MA documented in this encounter [facility] 12-04-2023 Miscellaneous Notes Noted, agree with Zach Ruiz DO Spoke with patient. She says she has no transportation for an appointment tomorrow. She says she is going to [facility] ER because her feet are swollen and that's a new symptom for her. Nadira Davalos RN Patient calling to say someone left message for her to call and speak to a nurse. This nurse asked patient to check BP with home monitor BP cuff 248/162. Denies chest pain, SOB, headache, dizziness, blurred vision, loss of balance. She says she has no neurological symptoms but both feet are slightly swollen. She noticed within the past couple hours. Disposition: See PCP within 4 hours or PCP Triage. BEATRIZ spoke with PCP who says patient needs appointment tomorrow. This nurse will call to schedule and advise patient to ER if develops any symptoms. Nadira Davalos RN Reason for Disposition [1] Systolic BP >= 200 OR Diastolic >= 120 AND [2] having NO cardiac or neurologic symptoms Answer Assessment - Initial Assessment Questions 1. BLOOD PRESSURE: 248/162 2. ONSET: today 3. HOW: automatic home BP monitor 4. HISTORY: No history of hypertension 5. MEDICINES: Takes no medication for hypertension 6. OTHER SYMPTOMS: denies headache, dizziness, lightheadedness, blurred vision, loss of balance Patient states both feet are mildly swollen. She noticed this about 2 hours ago. 7. : NO Protocols used: Blood Pressure - [id number] Images from the original note were not included. Please see pt message regarding high BP readings. Left message for patient to contact office regarding elevated BP to see if she is asymptomatic and still this high. Sending message to provider high priority for review. Spoke with Dr. Ruiz and she reports pt needs to come in for a BP check tomorrow since she is asymptomatic. She is worried patient does not have correct size cuff. Attempted to contact patient again to set up appt and no answer. Tried both cell and home phone. Marcie Real Wstr Famp My Chart Rx Pool (supporting Xiang Ruiz DO) 2 hours ago (3:54 PM) BT I m glad I thought to do this but I was taking my blood pressure and I double checked it and it was higher than it was when I was in the hospital I feel fine but it was at 248/152 and then 241/142 it s never been this high at home before and I think I absolutely need blood pressure medicine if it s been doing this mind you I checked it last a week ago and it wasn t anywhere near this high Attachments [id number] [id number] documented in this encounter [facility] 12-04-2023 Miscellaneous Notes Turned into KIRSTIE Lindsey documented in this encounter [facility] 12-04-2023 Note HNO ID: [id number] Author: XIANG RUZI, DO Service: ? Author Type: Physician Type: Progress Notes Filed: 12/04/2023 13:17 Note Text: In lieu of an in [...] NOTE This is a virtual visit using [employer] Video Visit. It required patient-provider interaction for the medical decision making as documented below. I have communicated my name and active licensure. The patient's identity and physical location were verified at the time of this visit. Either the patient or their legal inbound sales representative has been informed of the risks and benefits of -- and alternatives to -- treatment through a remote evaluation and consents to proceed with the evaluation remotely Marcie Loyola is a 27 year old female seen for follow up Has had 2 recent EMERGENCY DEPARTMENT visits for right sided kidney stones. Seen in Jul 2023 and Sep 2023. 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 Sarah Lunsford to have testing [...] time and knows can't be on this detention, no SE with medication. Also would like [...] 3, 5, 7, and 9 rizatriptan (MAXALT SOCIAL SERVICES TECHNICIAN) 5 mg disin (more content not included)... [facility] 12-04-2023 History of Presen t illness Narrative [...] NOTE This is a virtual visit using [employer] Zoom Video Visit. It required patient-provider interaction for the medical decision making as documented below. I have communicated my name and active licensure. The patient's identity and physical location were verified at the time of this visit. Either the patient or their legal inbound sales representative has been informed of the risks and benefits of -- and alternatives to -- treatment through a remote evaluation and consents to proceed with the evaluation remotely Marcie Loyola is a 27 year old female seen for follow up Has had 2 recent EMERGENCY DEPARTMENT visits for right sided kidney stones. Seen in Jul 2023 and Sep 2023. 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 Sarah Lunsford to have testing [...] time and knows can't be on this intermediate manager, no SE with medication. Also would like [...] 3, 5, 7, and 9 rizatriptan (MAXALT SOCIAL SERVICES TECHNICIAN) 5 mg disintegrating tablet Take 1 tablet [...] this visit. ALLERGIES Allergen Reactions Onion Anaphylaxis [place] Oil Hives, Swelling, Itching REVIEW OF SYSTEMS: [...] and other labs Follow up with [employer]RO RU[employer]ER WORKER specialist regarding kidney stones- has multiple right kidney stones. Okay to restart the Lyrica and prn cyclobenzaprine medication medication for chronic LBP for sciatica symptoms Vitamin B12 deficiency- continue supplement HPL, diet controlled. There are no Patient Instructions on file for this visit. I spent a total of 35 minutes on the date of the service which included preparing to see the patient, [id number] patient care, completing clinical documentation, obtaining and/or reviewing separately obtained history, performing a medically appropriate examination, and ordering medications, tests, or procedures Xiang Ruiz DO documented [facility] [facility] Miscellaneous Notes Pt called and is notified of providers results and message. Pt voices understanding. Taylor Gomez, RN Please let Marcie know that her tox screen is positive for cannabis. We can no longer prescribe her controlled substances. Roxana Ocasio APRN.TABATHA documented in this encounter [facility] 04-26-2023 History of Presen t illness [...] NOTE This is a virtual visit using [employer] video visit. It required patient-provider interaction for the medical decision making as documented below. I have communicated my name and active licensure. The patient's identity and physical location were verified at the time of this visit. Either the patient or their legal inbound sales representative has been informed of the risks and benefits of -- and alternatives to -- treatment through a remote evaluation and consents to proceed with the evaluation remotely. Marcie Loyola is a 27 year old female seen [...] (H) 4.3 - 5.6 % Final Comment: [place] [employer] guidelines indicate that patients with HgbA1c in the range 5.7-6.4% are at increased risk for development of diabetes, and intervention by lifestyle modification may be beneficial. HgbA1c greater or equal to 6.5% is considered diagnostic of diabetes. 01/01/2023 5.9 (H) 4.3 - 5.6 % Final Comment: [place] [employer] guidelines indicate that patients with HgbA1c in the range 5.7-6.4% are at increased risk for development of diabetes, and intervention by lifestyle modification may be beneficial. HgbA1c greater or equal to 6.5% is considered diagnostic of diabetes. 09/12/2022 6.2 (H) 4.3 - 5.6 % Final Comment: [place] [employer] guidelines indicate that patients with HgbA1c in the range 5.7-6.4% are at increased risk for development of diabetes, and intervention by lifestyle modification may be beneficial. HgbA1c greater or equal to 6.5% is considered diagnostic of diabetes. 06/20/2022 6.9 (H) 4.3 - 5.6 % Final Comment: [place] [employer] guidelines indicate that patients with HgbA1c in the range 5.7-6.4% are at increased risk for development of diabetes, and intervention by lifestyle modification may be beneficial. HgbA1c greater or equal to 6.5% is considered diagnostic of diabetes. 10/22/2018 6.1 (H) 4.3 - 5.6 % Final Comment: [place] [employer] guidelines indicate that patients with [...] 13 Has started a gym membership at [employer] to exercise 2-3 days a week for [...] tablet by mouth once daily. rizatriptan ([employer] TECHNICIAN) 5 mg disintegrating tablet Take 1 tablet [...] this visit. ALLERGIES Allergen Reactions Onion Anaphylaxis [place] Oil Hives, Swelling, Itching REVIEW OF SYSTEMS: [...] current use of insulin ([facility]) (E66.01, Z68.44) Morbid obesity with BMI of 60.0-69.9, adult ([facility]) (E88.81) Dysmetabolic syndrome (E53.8) Vitamin B12 deficiency [...] which included preparing to see the patient, ilyc-ky-mymy patient care, completing clinical documentation, obtaining and/or reviewing separately obtained history, performing a medically appropriate examination, and ordering medications, tests, or procedures Xiang Ruiz DO documented in this encounter [facility] 04-25-2023 Miscellaneous Notes Last office visit: 01/11/23 F/u scheduled: 04/26/23 Last refilled on: Lyrica #[id number] with 2 refills on 01/11/23 Osiris Bianchi Ma documented in this encounter [facility] 04-10-2023 Miscellaneous Notes Patient has been [...] Smita Hernadez LPN documented in this encounter [facility] 01-11-2023 History of Presen t illness [...] NOTE This is a virtual visit using [employer] video visit. It required patient-provider interaction for the medical decision making as documented below. I have communicated my name and active licensure. The patient's identity and physical location were verified at the time of this visit. Either the patient or their legal inbound sales representative has been informed of the risks and benefits of -- and alternatives to -- treatment through a remote evaluation and consents to proceed with the evaluation remotely. Marcie Loyola is a 27 year old female seen [...] tablet by mouth once daily. rizatriptan ([employer] TECHNICIAN) 5 mg disintegrating tablet Take 1 tablet [...] this visit. ALLERGIES Allergen Reactions Onion Anaphylaxis [place] Oil Hives, Swelling, Itching REVIEW OF SYSTEMS: [...] suspicious activity was identified. 01/16/2023 by Xiang Ruiz DO There are no Patient Instructions on file for this visit. I spent a total of 40 minutes on the date of the service which included preparing to see the patient, gmft-[id number] patient care, completing clinical documentation, obtaining and/or reviewing separately obtained history, performing a medically appropriate examination, counseling and educating the patient/family/caregiver, and ordering medications, tests, or procedures Xiang Ruiz DO documented in this encounter [facility] 06-20-2022 History of Presen t illness Narrative Radiology Service Progress Note PATIENT NAME: Marcie Loyola DATE OF SERVICE: June 20, 2022 TIME: [...] RT Suleman(R) June 20, 2022 12:43 PM documented in this encounter [facility] 01-26-2021 History of Presen t illness Narrative Pt's risk score is 63%. Problem: MARY ANNE Follow-Up Call where Pt indicated feeling a lost of interest in things and/or sad, hopeless, anxious, and empty. Assessment: Unable to reach Pt on 01/24/2021 and 01/25/2021. Plan: Unable to reach Pt. No further Interventions at this time. MARJORIE Enrique, BULK SEALER OPERATOR Outpatient SW [phone] documented in this encounter [facility] 01-15-2021 Note DISCHARGE SUMMARY [address] [address] Marcie Loyola Date of : 1995 25 year old female Attending Faraz Maravilla MD Date of Admission 01/10/2021 Date [...] prior to discharge. Pt was discharged 01/15. HussainIraj mccorda Home Medication Instructions GABRIELA:[id number] Printed on:01/15/21 1431 Medication Information baclofen (LIORESAL) [...] Gurpreet Villarreal MD Acute Care Surgery Pager [phone], Weekdays 6a-6p [place] Pager [phone], Weekdays 6p-6a, weekends Surgical Attending Note Patient Active Problem List: Cholecystitis [K81.9] Unsteady gait [R26.81] Marcie Loyola seen and examined, chart reviewed. Marcie Loyola is deemed ready for discharge with services [...] with assessment and plan as per resident/physician diagnostic assistant with discharge planning and disposition as per above note. Appropriate follow-up to be obtained with all services involved in patient care. Faraz Maravilla MD [facility] 01-15-2021 Note ACUTE CARE SURGERY P [...] Report 2+ Enterococcus faecium Assessment/ Plan: Marcie Loyola is a 25 year old female with [...] General Surgery Resident Acute Care Surgery Pager [phone], Week 6a-6p [place] Pager [phone], Weekdays 6p-6a, weekends [facility] 01-14-2021 Note ACUTE CARE SURGERY P [...] Report 2+ Enterococcus faecium Assessment/ Plan: Marcie Loyola is a 25 year old female with [...] Guevara MD General Surgery, PGY-3 ACS Pager [phone], Weekdays 6a-6p [place] [phone], Weekdays 6p-6a, weekends ACUTE CARE SURGERY FELLOW [...] MD Trauma Surgical Critical Care Fellow Acute [facility] 01-13-2021 Note OCCUPATIONAL THERAPY INITIAL [...] 01/10/2021 Procedure: CHOLECYSTECTOMY, LAPAROSCOPIC, Possible Open; Surgeon: Faraz Maravilla MD; Location: PERIOPERATIVE SERVICES; Service: Trauma SUBJECTIVE: Patient Subjective: I could really use that pipeline technician. 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: -Independent with functional mobility tasks, ambulation [...] Dep Max Mod Min CG CS DS [place] I Set-Up Comment Feeding x Grooming/Hygiene x seated Bathing:UB x Simulated sponge bathing Bathing:LB x Simulated sponge bathing, with use of long handled sponge Dressing:UB x anticipated to don shirt Dressing: LB x Donned/doffed socks, seated EOB Toileting x anticipated Transfers/Bed Mobility: Assistance Level Dep Max Mod Min CG DS [place] I Set-Up Comment Toilet Transfers x anticipated Bed Transfers x Sit to stand from EOB Bed Mobility x Supine to sit Endurance for Self Care: Impaired Static Sitting Balance: WFL Dynamic Sitting Balance: WFL UE Motor: BUE AROM and strength WFL Vision/Perception: WFL Cognition: AOx3, WNL Patient/Family Education: educated pt on use of long handled sponge, pipeline technician, and bathroom otto want to assist with ADL performance Patient up in bed with call light in reach. ??? DME: recommend pipeline technician, LHS, bathroom otto wand ??? 6 Clicks [...] Guard Assist/Supervision 4 - Non = Modified [place]/Independent ASSESSMENT: Patient is functionally appropriate for discharge [...] commode transfers with Modified Independent PLAN: Marcie Loyola will be seen 1-3 times a week. [...] NA = Not Assessed, I = Independent, [place] = Modified Independent, Sup = Supervised, Set up = Physical Assistance f (more content not included)... [facility] 01-13-2021 Note PHYSICAL THERAPY PRO NAYAN [...] Dep Max Mod Min CG CS DS [place] I Comment Sit to/from stand x From [...] With Patients permission ordered wheeled walker via [employer] Order. If any questions contact [facility] DME Provider at [phone]. 3 Clicks Basic Mobility PT 01/12/2021 Difficulty turning [...] Continue with plan per Initial Evaluation Marycruz Servin KEMI Beeper #[phone] NA = Not Assessed, I = Independent, [place] = Modified Independent, Sup = Supervised, Set up = Physical Assistance for Set-up Only, Min = Minimal Assistance, Mod = Moderate Assistance, Max = Maximal assistance; Dep = Dependent; AROM = Active Range of Motion; PROM = Passive Range of Motion; MMT = Manual Muscle Test [facility] 01-13-2021 Note ACUTE CARE SURGERY P [...] Segs% Bands% Lymphs% Monos% Eos% Basos% 01/12/21 025 73.9 16.1 8.2 1.4 0.4 01/10/21 0810 79.7 12.2 7.3 0.3 0.4 Hepatic/Biliary/Pancreas T Prot Albumin D Bili T Bili Alk Phos ALT AST Amylase Lipase 01/11/21 0243 5.9 2.2 0.30 1.2 86 34 70 Pyogen Culture Pyogen culture 01/10/21 1430 Positive Culture Report 2+ Enterococcus faecium Assessment/ Plan: Marcie Loyola is a 25 year old female with [...] K<4 ID: [email or web address] for purulent ascites, day 4/4, end date today after last dose, cx [...] Guevara MD General Surgery, PGY-3 ACS Pager [phone], Weekdays 6a-6p [place] [phone], Weekdays 6p-6a, weekends ACUTE CARE SURGERY FELLOW [...] Critical Care Fellow Acute Care Surgery [facility] 01-12-2021 Note PHYSICAL THERAPY ACU TE [...] moving. 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 If any questions contact [facility] DME Provider at [phone]. 6 Clicks Basic Mobility PT 01/12/2021 Difficulty [...] Can use assistive devices. ??? ASSESSMENT: Marcie Loyola is a 25 year old yo female [...] will increas (more content not included)... [facility] 01-12-2021 Note ACUTE CARE SURGERY P [...] BUN Cr Ca Mg PO4 01/12/21257 2.0 01/12/21257 138 3.9 100 28 14 91 6 0.68 8.1 01/11/21242 136 3.5 101 23 16 123 8 0.77 7.7 01/10/21 0810 131 3.8 Comment: Hemolysis present 97 24 14 112 7 0.64 8.1 CBC/PT/INR WBC RBC Hgb Hct MCV RDW Plt PT aPTT INR 01/12/21257 13.8 4.06 10.9 33.5 83 15.2 466 01/11/214 17.1 4.33 11.4 35.6 82 15.2 442 01/11/21242 38 01/11/21 024 1.56 01/10/21 0810 18.8 4.45 11.8 36.5 82 15.5 450 WBC/Diff Neutro% Segs% Bands% Lymphs% Monos% Eos% Basos% 01/12/218 73.9 16.1 8.2 1.4 0.4 01/10/21 0810 79.7 12.2 7.3 0.3 0.4 Hepatic/Biliary/Pancreas T Prot Albumin D Bili T Bili Alk Phos ALT AST Amylase Lipase 01/11/21242 5.9 2.2 0.30 1.2 86 34 70 Pyogen Culture Pyogen culture 01/10/21 1430 Positive Culture Report 2+ Enterococcus faecium Assessment/ Plan: Marcie Loyola is a 25 year old female with [...] General Surgery Resident Acute Care Surgery Pager [phone], Weekdays 6a-6p [place] Pager [phone], Weekdays 6p-6a, weekends [facility] 01-11-2021 Note ACUTE CARE SURGERY P [...] 2+ Gram positive cocci[P] Assessment/ Plan: Marcie Loyola is a 25 year old female with [...] Guevara MD General Surgery, PGY-3 ACS Pager [phone], Weekdays 6a-6p [place] [phone], Weekdays 6p-6a, weekends ACUTE CARE SURGERY FELLOW [...] Critical Care Fellow Acute Care Surgery [facility] Evaluation note Diagnosis Situational anxiety- Primary Other anxiety states Type 2 diabetes mellitus with hyperglycemia, without long-term current use of insulin (HCC) Morbid obesity with BMI of 60.0-69.9, adult (HCC) Morbid obesity Left sided sciatica Sciatica Chronic left-sided low back pain with left-sided sciatica Dysmetabolic syndrome Dysmetabolic Syndrome X [facility] Diagnosis Type 2 diabetes mellitus with hyperglycemia, without long-term current use of insulin (HCC) [facility] Diagnosis Left sided sciatica- Primary Sciatica Chronic left-sided low back pain with left-sided sciatica Type 2 diabetes mellitus with hyperglycemia, without long-term current use of insulin (HCC) Morbid obesity with BMI of 60.0-69.9, adult (HCC) Morbid obesity Dysmetabolic syndrome Dysmetabolic Syndrome X Vitamin B12 deficiency Other B-complex deficiencies Hyperlipidemia, mixed Mixed hyperlipidemia [facility] Left sided sciatica Sciatica Chronic left-sided low back pain with left-sided sciatica [facility] Diagnosis Cannabis use, unspecified, uncomplicated [facility] Diagnosis Leg skin lesion, right Unspecified disorder of skin and subcutaneous tissue Skin lesion of right leg Unspecified disorder of skin and subcutaneous tissue [facility] CRP elevated- Primary Elevated C-reactive [...] other allergic trigger [facility] Diagnosis Type 2 diabetes mellitus with hyperglycemia, without long-term current use of insulin ([facility]) [facility] Diagnosis Back muscle spasm Other symptoms referable to back [facility] Diagnosis Herpes simplex Herpes simplex without mention of complication Left sided sciatica Sciatica Chronic left-sided low back pain with left-sided sciatica [facility] Diagnosis Chronic left-sided low back pain with left-sided sciatica Left sided sciatica Sciatica [facility] Diagnosis Chronic left-sided low back pain with left-sided sciatica- Primary [facility] Diagnosis Lumbar degenerative disc disease- Primary Degeneration of lumbar or lumbosacral intervertebral disc Chronic left-sided low back pain with left-sided sciatica [facility] Diagnosis Type 2 diabetes mellitus with hyperglycemia, without long-term current use of insulin (HCC)- Primary Hypertension, essential Unspecified essential hypertension Vitamin B12 deficiency Other B-complex deficiencies Essential hypertension Unspecified essential hypertension Vitamin D deficiency Unspecified vitamin D deficiency Dyslipidemia Other and unspecified hyperlipidemia Gait disorder Abnormality of gait Osteoarthritis of spine with radiculopathy, lumbar region Weakness of both legs Other musculoskeletal symptoms referable to limbs Hair thinning Alopecia, unspecified Acne vulgaris Other acne [facility] Diagnosis Type 2 diabetes mellitus with hyperglycemia, without long-term current use of insulin (HCC)- Primary [facility]* Diagnosis Back muscle spasm Other symptoms referable to back documented in this encounter [facility] note* Diagnosis Bilateral chronic knee pain- Primary Pain in joint, lower leg Morbid obesity with BMI of 60.0-69.9, adult (HCC) Morbid obesity documented in this encounter [facility] note* Diagnosis Acute pain of right knee documented in this encounter [facility] for referral (narrative)* Diagnostic Procedure Only (Routine) - Closed Specialty Diagnoses / Procedures Referred By Cristiano hull Referred To Contact XR IMAGING Diagnoses Acute pain of right knee Procedures XR KNEE GENERAL 4V AP BOTH/PA BOTH/LAT/MERC RIGHT RADIOLOGIC EXAM KNEE COMPLETE 4/MORE VIEWS Xiang Ruiz DO [address] [id number] [place] [address] Referral ID Status Reason Start Date Expiration Date V isits Requested Visits Authorized [id number] Closed Auto-Generate d Referral 06/13/2022 07/13/2023 1 1 [facility] for visit Narrative* Diagnostic Procedure Only (Routine) - Closed Specialty Diagnoses / Procedures Referred By Contac t Referred To Contact XR IMAGING Diagnoses Acute pain of right knee Procedures XR KNEE GENERAL 4V AP BOTH/PA BOTH/LAT/MERC RIGHT RADIOLOGIC EXAM KNEE COMPLETE 4/MORE VIEWS Xiang Ruiz DO [address] [place] [address] [place] [address] Referral ID Status Reason Start Date Expiration Date V isits Requested Visits Authorized [id number] Closed Auto-Generate d Referral 06/13/2022 07/13/2023 1 1 [facility] Summary Purpose Family History No Family History Records FoundNo Family History Records FoundNo Family History Records FoundNo Family History Records FoundNo Family History Records FoundNo Family History Records FoundNo Family History Records Found Advance Directives No Advanced Directives Records FoundLatest Code Status on File Code Status Date Activated Date Inactivated Comments Full Code 01/10/2021 8:08 AM 01/15/2021 6:45 PM Question Answer Comments Documentation of decision process for this code status: Discussed with patient or surrogate. This is the code status chosen by the patient/surrogate. Reason for Referral Specialty Diagnoses / Procedures Referred By Cristiano hull Referred To Contact Xiang Ruiz, [address] [place] [address] Referral ID Status Reason Start Date Expiration Date V isits Requested Visits Authorized [id number] Authorized 04/21/2024 04/20/2025 1 1 Additional Source Comments INFORMATION SOURCE (unrecogn ized section and content) DATE CREATED AUTHOR 03/24/2019 [facility] DATE CREATED AUTHOR AUTHOR'S ORGANIZ ATION 04/12/2019 [facility] DATE CREATED AUTHOR AUTHOR'S ORGANIZ ATION 05/19/2019 [facility] DATE CREATED AUTHOR AUTHOR'S ORGANIZ ATION 01/10/2021 [facility] DATE CREATED AUTHOR AUTHOR'S ORGANIZ ATION [facility]/28/2021 [facility] DATE CREATED AUTHOR AUTHOR'S ORGANIZ ATION 02/08/2024 [facility] DATE CREATED AUTHOR AUTHOR'S ORGANIZ ATION 07/01/2024 [facility] Source Comments (unrecognize d section and content) In the event this informatio n is protected by the Federal Confidentiality of Alcohol and Drug Abuse Patient Records regulations: The Federal rules restrict any use of the information to criminally investigate or prosecute any alcohol or drug abuse patient.[facility] the event this information is protected by the Federal Confidentiality of Alcohol and Drug Abuse Patient Records regulations: The Federal rules restrict any use of the information to criminally investigate or prosecute any alcohol or drug abuse patient.[facility] the event this information is protected by the Federal Confidentiality of Alcohol and Drug Abuse Patient Records regulations: The Federal rules restrict any use of the information to criminally investigate or prosecute any alcohol or drug abuse patient.[facility] the event this information is protected by the Federal Confidentiality of Alcohol and Drug Abuse Patient Records regulations: The Federal rules restrict any use of the information to criminally investigate or prosecute any alcohol or drug abuse patient.[facility] the event this information is protected by the Federal Confidentiality of Alcohol and Drug Abuse Patient Records regulations: The Federal rules restrict any use of the information to criminally investigate or prosecute any alcohol or drug abuse patient.[facility] the event this information is protected by the Federal Confidentiality of Alcohol and Drug Abuse Patient Records regulations: The Federal rules restrict any use of the information to criminally investigate or prosecute any alcohol or drug abuse patient.[facility] Hospital[facility] the event this information is protected by the Federal Confidentiality of Alcohol and Drug Abuse Patient Records regulations: The Federal rules restrict any use of the information to criminally investigate or prosecute any alcohol or drug abuse patient.[facility] the event this information is protected by the Federal Confidentiality of Alcohol and Drug Abuse Patient Records regulations: The Federal rules restrict any use of the information to criminally investigate or prosecute any alcohol or drug abuse patient.[facility] Hospital[facility] the event this information is protected by the Federal Confidentiality of Alcohol and Drug Abuse Patient Records regulations: The Federal rules restrict any use of the information to criminally investigate or prosecute any alcohol or drug abuse patient.[facility] Hospital[facility] the event this information is protected by the Federal Confidentiality of Alcohol and Drug Abuse Patient Records regulations: The Federal rules restrict any use of the information to criminally investigate or prosecute any alcohol or drug abuse patient.[facility] Hospital[facility] the event this information is protected by the Federal Confidentiality of Alcohol and Drug Abuse Patient Records regulations: The Federal rules restrict any use of the information to criminally investigate or prosecute any alcohol or drug abuse patient.[facility] Hospital[facility] the event this information is protected by the Federal Confidentiality of Alcohol and Drug Abuse Patient Records regulations: The Federal rules restrict any use of the information to criminally investigate or prosecute any alcohol or drug abuse patient.[facility] Hospital[facility] the event this information is protected by the Federal Confidentiality of Alcohol and Drug Abuse Patient Records regulations: The Federal rules restrict any use of the information to criminally investigate or prosecute any alcohol or drug abuse patient.[facility] Hospital[facility] the event this information is protected by the Federal Confidentiality of Alcohol and Drug Abuse Patient Records regulations: The Federal rules restrict any use of the information to criminally investigate or prosecute any alcohol or drug abuse patient.[facility] Hospital[facility] the event this information is protected by the Federal Confidentiality of Alcohol and Drug Abuse Patient Records regulations: The Federal rules restrict any use of the information to criminally investigate or prosecute any alcohol or drug abuse patient.[facility] HospitalIn the event this information is protected by the Federal Confidentiality of Alcohol and Drug Abuse Patient Records regulations: The Federal rules restrict any use of the information to criminally investigate or prosecute any alcohol or drug abuse patient.[facility] HospitalIn the event this information is protected by the Federal Confidentiality of Alcohol and Drug Abuse Patient Records regulations: The Federal rules restrict any use of the information to criminally investigate or prosecute any alcohol or drug abuse patient.[facility] HospitalIn the event this information is protected by the Federal Confidentiality of Alcohol and Drug Abuse Patient Records regulations: The Federal rules restrict any use of the information to criminally investigate or prosecute any alcohol or drug abuse patient.[facility] HospitalIn the event this information is protected by the Federal Confidentiality of Alcohol and Drug Abuse Patient Records regulations: The Federal rules restrict any use of the information to criminally investigate or prosecute any alcohol or drug abuse patient.[facility] HospitalIn the event this information is protected by the Federal Confidentiality of Alcohol and Drug Abuse Patient Records regulations: The Federal rules restrict any use of the information to criminally investigate or prosecute any alcohol or drug abuse patient.[facility] HospitalIn the event this information is protected by the Federal Confidentiality of Alcohol and Drug Abuse Patient Records regulations: The Federal rules restrict any use of the information to criminally investigate or prosecute any alcohol or drug abuse patient.[facility] HospitalIn the event this information is protected by the Federal Confidentiality of Alcohol and Drug Abuse Patient Records regulations: The Federal rules restrict any use of the information to criminally investigate or prosecute any alcohol or drug abuse patient.[facility] HospitalIn the event this information is protected by the Federal Confidentiality of Alcohol and Drug Abuse Patient Records regulations: The Federal rules restrict any use of the information to criminally investigate or prosecute any alcohol or drug abuse patient.[facility] HospitalIn the event this information is protected by the Federal Confidentiality of Alcohol and Drug Abuse Patient Records regulations: The Federal rules restrict any use of the information to criminally investigate or prosecute any alcohol or drug abuse patient.[facility] HospitalIn the event this information is protected by the Federal Confidentiality of Alcohol and Drug Abuse Patient Records regulations: The Federal rules restrict any use of the information to criminally investigate or prosecute any alcohol or drug abuse patient.[facility] HospitalIn the event this information is protected by the Federal Confidentiality of Alcohol and Drug Abuse Patient Records regulations: The Federal rules restrict any use of the information to criminally investigate or prosecute any alcohol or drug abuse patient.[facility] HospitalIn the event this information is protected by the Federal Confidentiality of Alcohol and Drug Abuse Patient Records regulations: The Federal rules restrict any use of the information to criminally investigate or prosecute any alcohol or drug abuse patient.[facility] HospitalIn the event this information is protected by the Federal Confidentiality of Alcohol and Drug Abuse Patient Records regulations: The Federal rules restrict any use of the information to criminally investigate or prosecute any alcohol or drug abuse patient.[facility] HospitalIn the event this information is protected by the Federal Confidentiality of Alcohol and Drug Abuse Patient Records regulations: The Federal rules restrict any use of the information to criminally investigate or prosecute any alcohol or drug abuse patient.[facility] HospitalIn the event this information is protected by the Federal Confidentiality of Alcohol and Drug Abuse Patient Records regulations: The Federal rules restrict any use of the information to criminally investigate or prosecute any alcohol or drug abuse patient.[facility] HospitalIn the event this information is protected by the Federal Confidentiality of Alcohol and Drug Abuse Patient Records regulations: The Federal rules restrict any use of the information to criminally investigate or prosecute any alcohol or drug abuse patient.[facility] HospitalIn the event this information is protected by the Federal Confidentiality of Alcohol and Drug Abuse Patient Records regulations: The Federal rules restrict any use of the information to criminally investigate or prosecute any alcohol or drug abuse patient.[facility] HospitalIn the event this information is protected by the Federal Confidentiality of Alcohol and Drug Abuse Patient Records regulations: The Federal rules restrict any use of the information to criminally investigate or prosecute any alcohol or drug abuse patient.[facility] Reason for Visit (unrecogniz ed section and content) Reason Comments Follow Up Reason Onset Date Comments Refill Request 04/10/2023 Reason Onset Date Comments Refill Request 04/25/2023 Reason Comments MARY ANNE OUTREACH Reason Comments Results Reason Onset Date Comments Refill Request 09/05/2023 Reason Comments Blood Pressure Reason Comments Patient Question Reason Comments Refill Request Reason Onset Date Comments Refill Request 01/01/2024 Reason Onset Date Comments Refill Request 01/16/2024 Reason Comments Back Pain Specialty Diagnoses / Procedures Referred By Cristiano hull Referred To Contact [facility] Diagnoses Chronic left-sided low back pain with left-sided sciatica Procedures CONSULT TO PAIN MGT OFFICE/OUTPATIENT NEW HIGH MDM 60 MINUTES Xiang Ruiz L, DO [address] [place] [address] [address] [facility] [address] [place] [id number] Referral ID Status Reason Start Date Expiration Date V isits Requested Visits Authorized [id number] Closed PCP Requested Referral 12/25/2023 12/24/2024 1 1 Reason Onset Date Comments Refill Request 03/05/2024 Reason Comments Follow Up Reason Onset Date Comments Medication Information 04/22/2024 Reason Comments Medication Problem Reason Onset Date Comments Refill Request 05/12/2024 Reason Comments Orders Reason Onset Date Comments Refill Request 06/15/2024 Care Teams (unrecognized sec tion and content) 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 Relationship Specialty Start Date End Date Xiang Ruiz DO [address] [place] [address] PCP - General Family Medicine 10/19/14 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 Relationship Specialty Start Date End Date Xiang Ruiz DO [address] [place] [address] PCP - General Family Medicine 10/19/14 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 Relationship Specialty Start Date End Date Xiang Ruiz DO [address] [place] [address] PCP - General Family Medicine 10/19/14 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 Relationship Specialty Start Date End Date Xiang Ruiz DO [address] [place] [address] PCP - General Family Medicine 10/19/14 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 Relationship Specialty Start Date End Date [address]a [address] [place] [address] PCP - General 01/10/21 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 Relationship Specialty Start Date End Date Xiang Ruiz DO [address] [place] [address] PCP - General Family Medicine 10/19/14 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 Relationship Specialty Start Date End Date Xiang Ruiz DO [address] [place] [address] PCP - General Family Medicine 10/19/14 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 Relationship Specialty Start Date End Date Xiang Ruiz DO [address] [place] [address] PCP - General Family Medicine 10/19/14 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 Relationship Specialty Start Date End Date Xiang Ruiz DO [address] [place] [address] PCP - General Family Medicine 10/19/14 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 Relationship Specialty Start Date End Date Xiang Ruiz, [address] [facility] [address] PCP - General Family Medicine 10/19/14 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 Relationship Specialty Start Date End Date Xiang Ruiz, [address] [place] [address] PCP - General Family Medicine 10/19/14 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 Relationship Specialty Start Date End Date Xiang Ruiz, [address] [place] [address] PCP - General Family Medicine 10/19/14 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 Relationship Specialty Start Date End Date Xiang Ruiz, [address] [place] [address] PCP - General Family Medicine 10/19/14 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 Relationship Specialty Start Date End Date Xiang Ruiz, [address] [place] [address] PCP - General Family Medicine 10/19/14 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 Relationship Specialty Start Date End Date Xiang Ruiz, [address] [place] [address] PCP - General Family Medicine 10/19/14 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 Relationship Specialty Start Date End Date Xiang Ruiz, [address] [place] [address] PCP - General Family Medicine 10/19/14 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 Relationship Specialty Start Date End Date Xiang Ruiz DO [address] [place] [address] PCP - General Family Medicine 10/19/14 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 Relationship Specialty Start Date End Date Xiang Ruiz DO [address] [place], [place] [id number] PCP - [facility] Family Medicine 10/19/14 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 [employer] [facility]. provides no warranty or guarantee of the accuracy or completeness of information in this document.
[2024-07-25] MEDS: Ondansetron ODT 4 MG Tablet PO (05:55)
[2024-07-25] MEDS: diazePAM 5 MG Tablet 2.5 MG PO (05:55)
[2024-07-25] MEDS: Morphine 4 MG/ML Syringe 8 MG IM (05:56)
[2024-07-25] MEDS: Ketorolac 30 MG/ML Syringe IM (05:57)
[2024-07-25 06:23] VITALS: BP 151/83; PULSE 104; RESP 18; TEMP 37; O2SAT 96
== END 2024-07-25 06:29 | disposition home or self-care (01) ==
LOC: ED 05:52
PROVIDERS: Emergency Provider Emergency Medicine; PCP Student in an Organized Health Care Education/Training Program; Visit Provider Emergency Medicine
DX: M54.40 Lumbago with sciatica, unspecified side (principal); E66.01 Morbid (severe) obesity due to excess calories; Z68.44 Body mass index [BMI] 60.0-69.9, adult; E11.9 Type 2 diabetes mellitus without complications; E28.2 Polycystic ovarian syndrome; M62.830 Muscle spasm of back; E78.00 Pure hypercholesterolemia, unspecified; Z79.899 Other long term (current) drug therapy; F41.8 Other specified anxiety disorders; Z79.85 Long-term (current) use of injectable non-insulin antidiabetic drugs; Z90.49 Acquired absence of other specified parts of digestive tract
CPT/HCPCS: 96372; 99282

== ENCOUNTER 2024-07-26 04:24 | Emergency (ER) | payer MEDICAID, SELFPAY ==
[2024-07-26 04:24] VITALS: BP 193/109; PULSE 119; RESP 20; TEMP 36.6; O2SAT 96; BMI 60.5
--- OUTSIDE RECORDS SUMMARY | 2024-07-26 04:40 | XMS RPT_ITS | CCD ---
Author Organization [facility] Care Team Providers Care Consultant Dietitian Name Role Phone PROVIDER, UNKNOWN Attending Unavailable [...] Provider RuizXiang sanabria DO Primary Care Provider TYREE BRIZUELA Attending Unavailable TYREE BRIZUELA Admitting Unavailable RUIZ, XIANG Laura Primary Care Unavailable RUIZ, XIANG L Primary Care Unavailable RUIZ, XIANG L Attending Unavailable RUIZ, XIANG L Referring Unavailable RUIZ, XIANG L Primary Care Unavailable RUIZ, XIANG L Primary [...] Translations: [ONION] Drug Allergy 3 Anaphylaxis [facility] [employer] [facility] Repository (2 sources) OTHER (REVIEW COMMENTS!); Translations: [OTHER (REVIEW COMMENTS!)] Propensity to adverse reactions to drug (disorder) 1 Swelling [facility] (20 sources) Tougaloo Oil; Translations: [PINE OIL] Allergy to substance 3 Hives, Swelling, Itching [facility] Work Phone: Medications Current Medications Medication Drug Class(es) Dates Sig (Normalized) Sig (Original) [id number] 200 actuat albuterol 0.09 mg/actuat metered dose [...] once daily. Take 1 capsule by mo [facility] one time a week. ciprofloxacin 500 mg [...] a day as needed for muscle spasm. [id number] 0.3 ml EPINEPHrine 1 mg/ml auto-injector (20 [...] (rash). 60 g 2 12/04/2023 01/03/2024 Active Comment on above: Apply to affected ar ea two times a day as needed (rash). lidocaine 0.04 mg/mg medicated patch (20 sources) Antiarrhythmic, Amide Local Anesthetic Start: 02-19-20 lidocaine (SALONPAS) 4 % patch Apply 1 application as directed once daily. 30 Patch 1 02/19/2020 Active Comment on above: Apply 1 application as directed once daily. 3 ml liraglutide 6 mg/ml pen injector (10 sources) GLP-1 Receptor Agonist Start: 04-21-20 liraglutide (VICTOZA) 0.6 mg/ 0.1 ml subcutaneous pen injector Indications: type 2 diabetes mellitus Inject 0.6 mg daily via pen, dX: type 2 diabetes uncontrolled 4 Each 3 04/21/2024 Active loratadine 10 mg oral tablet (20 sources) Start: 06-13-20 End: 12-04-19 take 1 tablet by mouth once daily loratadine (CLARITIN) 10 mg tablet Indications: Seasonal allergic rhinitis due to other allergic trigger Take 1 tablet by mouth once daily. For allergies 30 tablet 11 12/04/2023 Active Comment on above: Take 1 tablet by patrick th once daily. For allergies LORazepam 1 mg oral tablet (2 sources) Benzodiazepine Start: 01-12-20 End: 02-11-20 take 1 tablet by mouth once daily as needed for anxiety LORazepam (ATIVAN) 1 mg tablet Indications: Situational anxiety Take 1 tablet by mouth once daily as needed (anxiety) for up to 30 days. 30 tablet 2 01/11/2023 02/10/2023 Active Comment on above: Take 1 tablet by patrick th once daily as needed (anxiety) for up to 30 days. meloxicam 15 mg oral tablet (20 sources) Nonsteroidal Anti-inflammatory Drug Start: 04-26-20 End: 01-01-20 take 1 tablet by mouth once daily for pain meloxicam (MOBIC) 15 mg tablet Indications: Left sided sciatica , Chronic left-sided low back pain with left-sided sciatica Take 1 tablet by mouth once daily. For back pain, With food. 30 tablet 2 01/01/2024 Active Comment on above: Take 1 tablet by patrick th once daily. For back pain, With food. metFORMIN hydrochloride 1000 mg oral tablet (20 sources) Biguanide Start: 12-04-19 take 1 tablet by mouth once daily at dinner metFORMIN (GLUCOPHAGE) 500 mg tablet Indications: Type 2 diabetes mellitus with hyperglycemia, without long-term current use of insulin (HCC) Take 1 tablet by mouth daily with dinner. Add to 1000 mg tablet to total 1500 mg at supper 90 tablet 1 12/04/2023 Active Start: 06-26-2023 End: 12-06-2023 take 1 tablet by mouth twice daily at mealtime metFORMIN (GLUCOPHAGE) 1,000 mg tablet Indications: Type 2 diabetes mellitus with hyperglycemia, without long-term current use of insulin (HCC) Take 1 tablet by mouth two times a day with meals. 60 tablet 3 12/06/2023 Active Start: 10-18-2022 End: 04-10-2023 take 1 tablet by mouth twice daily at mealtime metFORMIN (GLUCOPHAGE) 1,000 mg tablet Indications: Type 2 diabetes mellitus with hyperglycemia, without long-term current use of insulin (HCC) Take 1 tablet by mouth twice daily with meals. 60 tablet 3 04/10/2023 Active Comment on above: Take 1 tablet by patrick th twice daily with meals. Take 1 tablet by patrick th daily with dinner. Add to 1000 mg tablet to total 1500 mg at supper Take 1 tablet by patrick th two times a day with meals. minoxidil 2.5 mg oral tablet (10 sources) Arteriolar Vasodilator Start: 04-21-2024 take 1 tablet by mouth once daily minoxidil (LONITEN) 2.5 mg tablet Indications: Hair thinning Take 1 tablet by mouth once daily. 90 tablet 1 04/21/2024 Active naproxen 500 mg oral tablet (20 sources) Nonsteroidal Anti-inflammatory Drug Start: 01-06-2021 take 1 tablet by mouth every twelve hours as needed naproxen (NAPROSYN) 500 mg tablet Take 1 tablet by mouth twice daily as needed for Pain (for pain). Take with food 60 tablet 01/06/2021 Active NAPROXEN ORAL Ta ke by mouth. 0 Active Comment on above: Take 1 tablet by patrick th twice daily as needed for Pain (for pain). Take with food nystatin [id number] unt/ml topical cream (1 source) Polyene Antifungal Start: End: nystatin (MYCOSTATIN) cream Apply to affected area twice daily as needed (rash). 60 g 1 04/26/2023 05/26/2023 Active Comment on above: Apply to affected ar ea twice daily as needed (rash). ondansetron 4 mg disintegrating oral tablet (20 sources) Serotonin-3 Receptor Antagonist Start: take 1 tablet by mouth every eight hours as needed ondansetron orally disintegrating (ZOFRAN ODT) 4 mg disintegrating tablet Take 1 tablet by mouth every 8 hours as needed for nausea/vomiting. 30 tablet 2 12/04/2023 Active Comment on above: Take 1 tablet by patrick every 8 hours as needed for nausea/vomiting. permethrin 50 mg/ml topical cream (19 sources) Pyrethroid Start: permethrin (ELIMITE) 5 % cream Apply to all areas of the body from the neck to soles of feet; leave on for 8 to 14 hours before removing by washing (shower or bath) 60 g 0 02/26/2023 Active Comment on above: Apply to all areas o f the body from the neck to soles of feet; leave on for 8 to 14 hours before removing by washing (shower or bath) phentermine hydrochloride 37.5 mg oral tablet (2 sources) Sympathomimetic Amine Anorectic Start: End: take 1 tablet by mouth once daily in the morning Phentermine HCl (ADIPEX-P) 37.5 mg tablet Indications: Type 2 diabetes mellitus with hyperglycemia, without long-term current use of insulin (HCC) , Morbid obesity with BMI of 60.0-69.9, adult ([facility]) Take 1 tablet by mouth once daily for 30 days. In the morning, BMI 60.05 30 tablet 0 01/11/2023 02/10/2023 Active Comment on above: Take 1 tablet by patrick th once daily for 30 days. In the morning, BMI 60.05 polyethylene glycol 3350 01902 mg powder for oral solution (1 source) Osmotic Laxative Start: polyethylene glycol (MiraLax) packet Dissolve 1 Packet in 8 ounces of liquid and drink daily. 10 Packet 3 01/13/2021 Active pregabalin 75 mg oral capsule (20 sources) Start: End: take 1 capsule by mouth three times daily as needed for pain pregabalin (LYRICA) 75 mg capsule Indications: Chronic left-sided low back pain with left-sided sciatica , Left sided sciatica Take 1 capsule by mouth three times a day as needed (lumbar low back pain and sciatica) for up to 30 days. 90 capsule 2 01/16/2024 Active Start: 04-30-2023 End: 05-30-2023 take 1 capsule by mouth three times daily as needed for pain pregabalin (LYRICA) 75 mg capsule Indications: Left sided sciatica , Chronic left-sided low back pain with left-sided sciatica Take 1 capsule by mouth three times daily as needed (lumbar low back pain and sciatica) for up to 30 days. 90 capsule 2 04/30/2023 05/30/2023 Discontinued Start: 01-11-2023 End: 04-25-2023 take 1 capsule by mouth three times daily as needed for pain pregabalin (LYRICA) 75 mg capsule Indications: Left sided sciatica , Chronic left-sided low back pain with left-sided sciatica Take 1 capsule by mouth three times daily as needed (lumbar low back pain and sciatica) for up to 30 days. 90 capsule 2 01/11/2023 04/25/2023 Discontinued Start: 10-03-2022 End: 01-11-2023 take 1 capsule by mouth three times daily as needed for pain pregabalin (LYRICA) 50 mg capsule Indications: Left sided sciatica , Chronic left-sided low back pain with left-sided sciatica Take 1 capsule by mouth three times daily as needed (lumbar low back pain and sciatica) for up to 30 days. 90 capsule 2 10/03/2022 01/11/2023 Discontinued Start: 06-13-2022 End: 10-03-2022 take 1 capsule by mouth three times daily as needed for pain pregabalin (LYRICA) 25 mg capsule Indications: Left sided sciatica , Chronic left-sided low back pain with left-sided sciatica Take 1 capsule by mouth three times daily as needed (lumbar low back pain and sciatica) for up to 30 days. 90 capsule 1 06/13/2022 10/03/2022 Discontinued Comment on above: Take 1 capsule by mo ut three times daily as needed (lumbar low back pain and sciatica) for up to 30 days. Take 1 capsule by mo uth three times a day as needed (lumbar low back pain and sciatica) for up to 30 days. rizatriptan 5 mg disintegrating oral tablet (20 sources) Serotonin-1b and Serotonin-1d Receptor Agonist Start: take 1 tablet by mouth every two hours as needed for headache rizatriptan ([employer] SPECIALIST) 5 mg disintegrating tablet Indications: Migraine with aura and without status migrainosus, not intractable Take 1 tablet by mouth as needed for migraine headache (see administration instructions). May repeat in 2 hours if needed 9 tablet 1 08/13/2022 Active Comment on above: Take 1 tablet by patrick as needed for migraine headache (see administration instructions). May repeat in 2 hours if needed traZODone hydrochloride 100 mg oral tablet (20 sources) Serotonin Reuptake Inhibitor Start: take 1-2 tablets by mouth once daily at bedtime traZODone (DESYREL) 100 mg tablet Indications: Chronic insomnia Take 1-2 tablets by mouth daily at bedtime. 90 tablet 1 10/03/2022 Active Comment on above: Take 1-2 tablets by mouth daily at bedtime. tretinoin 0.25 mg/ml topical cream (8 sources) Retinoid Start: End: tretinoin (RETIN-A) 0.025 % topical cream Apply to affected area daily at bedtime. Generic okay, for facial acne 20 g 1 04/21/2024 Active triamcinolone acetonide 1 mg/ml topical cream (20 sources) Corticosteroid Start: End: triamcinolone acetonide (KENALOG) 0.1 % cream Indications: Leg skin lesion, right , Skin lesion of right leg Apply 1 application to affected area two times a day as needed (rash on legs). Apply sparingly to area for rash/itching. 45 g 09/05/2023 Active Start: 08-13-2022 triamcinolone acetonide (KENALOG) 0.1 % cream Indications: Leg skin lesion, right , Skin lesion of right leg Apply 1 application to affected area twice daily as needed (rash on legs). Apply sparingly to area for rash/itching. 45 g 0 08/13/2022 Active Comment on above: Apply 1 application to affected area twice daily as needed (rash on legs). Apply sparingly to area for rash/itching. Apply 1 application to affected area two times a day as needed (rash on legs). Apply sparingly to area for rash/itching. valACYclovir 500 mg oral tablet (20 sources) Herpesvirus Nucleoside Analog DNA Polymerase Inhibitor, Herpes Simplex Virus Nucleoside Analog DNA Polymerase Inhibitor, Herpes Zoster Virus Nucleoside Analog DNA Polymerase Inhibitor Start: 08-15-20 End: 01-01-20 24 take 1 tablet by mouth once daily valACYclovir (VALTREX) 500 mg tablet Indications: Herpes simplex Take 1 tablet by mouth once daily. 30 tablet 11 01/01/2024 Active Comment on above: Take 1 tablet by patrick th once daily. vitamin b12 1 mg oral tablet (20 sources) Vitamin B12 Start: 12-25-19 take 1 tablet by mouth once daily cyanocobalamin (VITAMIN B-12) 1,000 mcg tab Indications: Vitamin B12 deficiency Take 1 tablet by mouth once daily. 30 tablet 11 12/25/2023 Active Start: 07-09-2022 take 2 tablets by mo uth once daily cyanocobalamin (VITAMIN B-12) 1,000 mcg tab Indications: Vitamin B12 deficiency Take 2 tablets by mouth once daily. 60 tablet 3 07/09/2022 Active Comment on above: Take 2 tablets by mo uth once daily. Take 1 tablet by patrick th once daily. WALKER ROLLATOR SEAT WITH 6 WHEELS - RED (20 sources) Start: 07-09-2022 WALKER ROLLATOR SEAT WITH 6 WHEELS - RED Dx: balance disorder, bilateral knee pain, chronic low back pain 1 Each 07/09/2022 Active Start: 07-09-2022 WALKER ROLLATO R SEAT WITH 6 WHEELS - RED Dx: balance disorder, bilateral knee pain, chronic low back pain 1 Each 0 07/09/2022 Active Comment on above: Dx: balance disorder , bilateral knee pain, chronic low back pain Wheel Chair (4 sources) Start: 06-08-2024 Wheel Chair Indications: Bilateral chronic knee pain , Morbid obesity with BMI of 60.0-69.9, adult (HCC) once daily. Hip width 30 inches. 1 Each 06/08/2024 Active Completed/Discontinued Medications Medication Drug Class(es) Dates Sig (Normalized) Sig (Original) COMPOUNDED PRESCRIPTION (20 sources) Start: 04-09-2018 End: 02-06-2024 COMPOUNDED PRESCRIPTION Indications: Hypertension, essential Order: BLOOD PRESSURE cuff Dx: essential hypertension 1 Device 04/09/2018 02/06/2024 Discontinued Start: 04-09-2018 COMPOUNDED PRE SCRIPTION Indications: Hypertension, essential Order: BLOOD PRESSURE cuff Dx: essential hypertension 1 Device 0 04/09/2018 Active Comment on above: Order: BLOOD PRESSUR E cuff Dx: essential hypertension 0.5 ml dulaglutide 3 mg/ml auto-injector (5 sources) GLP-1 Receptor Agonist Start: 01-11-2023 End: 04-26-2023 dulaglutide (TRULICITY) 1.5 mg/0.5 mL pen injector Indications: Type 2 diabetes mellitus with hyperglycemia, without long-term current use of insulin (HCC) Inject 1.5 mg subcutaneously one time a week. Inject once per week. Discard Pen After 4 Each 2 01/11/2023 04/26/2023 Discontinued Start: 10-03-2022 End: 01-11-2023 dulaglutide (TRULICITY) 0.75 mg/0.5 mL pen injector Indications: Type 2 diabetes mellitus with hyperglycemia, without long-term current use of insulin (HCC) , Morbid obesity with BMI of 60.0-69.9, adult (HCC) Inject 0.75 mg subcutaneously one time a week. Type 2 diabetes, uncontrolled, non insulin dependent 4 Each 2 10/03/2022 01/11/2023 Discontinued Comment on above: Inject 1.5 mg subcut aneously one time a week. Inject once per week. Discard Pen After Inject 0.75 mg subcu taneously one time a week. Type 2 diabetes, uncontrolled, non insulin dependent dulaglutide (TRULICITY) 3 mg/0.5 mL pen injector (4 sources) Start: 09-05-2023 End: 12-04-2023 dulaglutide (TRULICITY) 3 mg/0.5 mL pen injector Indications: Type 2 diabetes mellitus with hyperglycemia, without long-term current use of insulin (HCC) Inject 3 mg subcutaneously one time a week. Inject once per week. Discard Pen After 4 Each 2 09/05/2023 12/04/2023 Discontinued Start: 04-26-2023 End: 09-05-2023 dulaglutide (TRULICITY) 3 mg /0.5 mL pen injector Indications: Type 2 diabetes mellitus with hyperglycemia, without long-term current use of insulin (HCC) Inject 3 mg subcutaneously one time a week. Inject once per week. Discard Pen After 4 Each 2 04/26/2023 09/05/2023 Discontinued Start: 04-26-2023 dulaglutide (T RULICITY) 3 mg/0.5 mL pen injector Indications: Type 2 diabetes mellitus with hyperglycemia, without long-term current use of insulin (HCC) Inject 3 mg subcutaneously one time a week. Inject once per week. Discard Pen After 4 Each 2 04/26/2023 Active Comment on above: Inject 3 mg subcutan eously one time a week. Inject once per week. Discard Pen After dulaglutide (TRULICITY) 4.5 mg/0.5 mL pen injector (16 sources) Start: End: inject 4.5 mg by subcutaneous injection every week dulaglutide (TRULICITY) 4.5 mg/0.5 mL pen injector Indications: Type 2 diabetes mellitus with hyperglycemia, without long-term current use of insulin (HCC) Inject 4.5 mg subcutaneously one time a week. 4 Each 3 12/25/2023 04/21/2024 Discontinued Start: 12-25-2023 inject 4.5 mg by sub cutaneous injection every week dulaglutide (TRULICITY) 4.5 mg/0.5 mL pen injector Indications: Type 2 diabetes mellitus with hyperglycemia, without long-term current use of insulin (HCC) Inject 4.5 mg subcutaneously one time a week. 4 Each 3 12/25/2023 Active Start: 12-04-2023 inject 4.5 mg by sub cutaneous injection every week dulaglutide (TRULICITY) 4.5 mg/0.5 mL pen injector Indications: Type 2 diabetes mellitus with hyperglycemia, without long-term current use of insulin (HCC) Inject 4.5 mg subcutaneously one time a week. 4 Each 3 12/04/2023 Active Comment on above: Inject 4.5 mg subcut aneously one time a week. hydroCHLOROthiazide 50 mg oral tablet (9 sources) Thiazide Diuretic Star t: 09-01 End: 03-19 24 take 1 tablet by mouth once daily hydroCHLOROthiazide (HYDRODIURIL, ESIDRIX) 50 mg tablet Indications: Hypertension, essential Take 1 tablet by mouth once daily. 90 tablet 1 09/28/2019 12/04/2023 Discontinued Comment on above: Take 1 tablet by patrick th once daily. losartan potassium 100 mg oral tablet (15 sources) Angiotensin 2 Receptor Ofelia Star t: 02-16 End: 11-29 24 take 1 tablet by mouth once daily losartan (COZAAR) 100 mg tablet Indications: Hypertension, essential take 1 tablet by mouth once daily 30 tablet 3 05/04/2019 12/25/2023 Discontinued Comment on above: take 1 tablet by patrick th once daily sennosides, senior care 8.6 mg oral tablet (1 source) Star t: 12-29 End: 12-29 21 take 1 tablet by mouth once daily as needed for constipation senna (SENOKOT) 8.6 MG tablet Take 1 Tablet by mouth daily as needed for Constipation. 30 Tablet 0 01/13/2021 01/13/2021 [facility] Problems Active Problems Problem Classification Problem Date Documented Date Episodic/Chronic Anxiety disorders (20 sources) Anxiety; Translations: [Other specified anxiety disorders] Onset: 05-15-2017 Chronic Deficiency and other anemia (1 source) Anemia, unspecified; Translations: [Anemia, unspecified type] Onset: 06-20-2024 Episodic Diabetes mellitus with complications (20 sources) Type 2 diabetes mellitus; Translations: [Type 2 diabetes mellitus with hyperglycemia] Onset: 07-10-2022 Chronic Disorders of lipid metabolism (20 sources) Mixed hyperlipidemia; Translations: [Mixed hyperlipidemia] Onset: 07-10-2022 07-10-2022 Chronic Essential hypertension (20 sources) Essential hypertension; Translations: [Essential (primary) hypertension] 08-29-2018 Chronic Headache; including migraine (20 sources) Migraine with aura; Translations: [Migraine with aura, not intractable, without status migrainosus] Onset: 08-15-2022 08-15-2022 Chronic Mood disorders (20 sources) Moderate major depression, single episode; Translations: [Major depressive disorder, single episode, moderate] Onset: 05-15-2017 05-15-2017 Chronic Mycoses (1 source) Tinea corporis; Translations: [Tinea corporis] 12-04-2023 Episodic Nutritional deficiencies (20 sources) Vitamin D deficiency; Translations: [Vitamin D deficiency, unspecified] Onset: 07-10-2022 07-10-2022 Chronic Other connective tissue disease (1 source) Other symptoms and signs involving the musculoskeletal system; Translations: [Other musculoskeletal symptoms referable to limbs] 04-21-2024 Episodic Other nervous system disorders (2 sources) Other chronic pain; Translations: [Chronic left-sided low back pain with left-sided sciatica] Onset: 03-03-2020 Chronic Other nervous system disorders (2 sources) Abnormal gait; Translations: [Unsteadiness on feet] Onset: 01-13-2021 01-13-2021 Episodic Other nutritional; endocrine; and metabolic disorders (20 sources) Body mass index 40+ - severely obese; Translations: [Morbid (severe) obesity due to excess calories] Onset: 05-15-2017 Chronic Other nutritional; endocrine; and metabolic disorders (20 sources) Metabolic syndrome X; Translations: [Metabolic syndrome] Onset: 08-15-2022 Chronic Other skin disorders (1 source) Loss of hair; Translations: [Nonscarring hair loss, unspecified] 04-21-2024 Episodic Other skin disorders (1 source) Acne vulgaris; Translations: [Acne vulgaris] 04-21-2024 Episodic Other upper respiratory disease (1 source) Seasonal allergic rhinitis; Translations: [Other allergic rhinitis] 12-04-2023 Chronic Spondylosis; intervertebral disc disorders; other back problems (2 sources) Degeneration of lumbar intervertebral disc; Translations: [Other intervertebral disc degeneration, lumbar region] 01-22-2024 Chronic Unclassified (1 source) Dysmetabolic syndrome; Translations: [Dysmetabolic syndrome] Onset: 08-15-2022 Past or Other Problems Problem Classification Problem Date Documented Da te Episodic/Chronic Biliary tract disease (1 source) Cholecystitis; Translations: [Cholecystitis, unspecified] Onset: 01-10-2021 01-15-2021 Episodic Nutritional deficiencies (20 sources) Cobalamin deficiency; Translations: [Deficiency of other specified B group vitamins] Onset: 07-10-2022 07-10-2022 Episodic Other connective tissue disease (20 sources) Muscle pain; Translations: [Myalgia, unspecified site] Onset: 05-15-2017 05-15-2017 Episodic Other non-traumatic joint disorders (20 sources) Joint pain; Translations: [Pain in unspecified joint] Onset: 05-15-2017 05-15-2017 Episodic Other non-traumatic joint disorders (20 sources) Pain in right knee; Translations: [Pain in joint, lower leg] Onset: 07-10-2022 07-10-2022 Episodic Other screening for suspected conditions (not mental disorders or infectious disease) (20 sources) Thyroid function tests abnormal; Translations: [Abnormal results of thyroid function studies] Onset: 07-10-2022 07-10-2022 Episodic Other skin disorders (20 sources) Mass of skin of right lower limb; Translations: [Disorder of the skin and subcutaneous tissue, unspecified] Onset: 08-15-2022 08-15-2022 Episodic Spondylosis; intervertebral disc disorders; other back problems (20 sources) Sciatica; Translations: [Sciatica, left side] Onset: 03-03-2020 Episodic Substance-related disorders (20 sources) Cannabis misuse; Translations: [Cannabis use, unspecified, uncomplicated] Onset: 05-30-2023 05-30-2023 Episodic Viral infection (20 sources) Herpes simplex; Translations: [Herpesviral infection, unspecified] Onset: 08-15-2022 08-15-2022 Episodic Results Test Name Value Interpretation Reference [facility] Telephone (FAMPWS) MARCIE LOYOLA ([id number]) 1995 F CHT Date Time Provider Department 06/30/24 XIANG RUIZ During your visit today, we recorded the following information about you: Meagan Lindsey MA 06/30/2024 11:34 AM Addendum Please see pt MC message -- Please see ER report- Scan on 06/30/2024 3:11 AM by Provider, NOEMY Duran: Consultation - Emergency [facility] (supporting Xiang Ruiz DO)1 hour ago (9:42 AM) BT I got the name confused it?s cipro but yeah for some reason it is in my medication list but they never got it at the pharmacy [facility] (supporting Xiang Ruiz DO)1 hour ago (9:42 AM) BT I got the name confused it?s cipro but yeah for some reason it is in my medication list but they never got it at the pharmacy [facility] (supporting Xiang Ruiz DO)1 hour ago (9:35 AM) BT Hello I was in the emergency room for a kidney stone and uti I was supposed to be given ghazal for an antibiotic but when my friend went to go pick it up they hadn?t gotten one for my antibiotics so I was wondering if the doctor could send in my antibiotic prescription as I allen need them Prashanth Baird PA-C 06/30/2024 11:59 AM Signed Reviewed ED note. Cipro sent to the pharmacy. F/u if not improving, sooner if worsening The following approved medication requests have been transmitted electronically. Requested Prescriptions Signed Prescriptions Disp Refills ciprofloxacin HCl (CIPRO) 500 mg tablet 14 tablet 0 Sig: Take 1 tablet by mouth two times a day for 7 days. Authorizing Provider: PRASHANTH BAIRD PA-C Holiday, [place], MA 06/30/2024 12:12 PM Signed Pt informed via MC Message Meagan Lindsey MA Allergies As of Date: 06/30/2024 Noted Allergy Reaction ONION 07/21/2013 10 - Anaphylaxis [place] 07/21/2013 4 - Hives 7 - Swelling 9 - Itching Date Reviewed: 02/06/2024 Reviewed by: Ritika Harris RN - Fully Assessed Reason for Visit: Medication Problem [65] Order(s):ciprofloxacin HCl (CIPRO) 500 mg tabletTake 1 tablet by mouth two times a day for 7 days.Disp: 14 tabletRfl: 0 Prescriptions as of 06/30/2024 - ciprofloxacin HCl (CIPRO) 500 mg tablet Take 1 tablet by mouth two times a day for 7 days. - cholecalciferol, Vitamin D3, (VITAMIN D3) 1,250 mcg (50,000 unit) cap capsule Take 1 capsule by mouth one time a week. - losartan-hydroCHLOROthi azide (HYZAAR) 100-12.5 mg per tablet Take 1 tablet by mouth once daily. - Wheel Chair once daily. Hip width 30 inches. - cyclobenzaprine (FLEXERIL) 10 mg tablet Take 1 tablet by mouth three times a day as needed for muscle spasm. - pen needle, diabetic, safety (COMFORT EZ PRO SAFETY PEN NDL) 31 gauge x 3/16 ndle Use SQ daily with Victoza pen. - liraglutide (VICTOZA) 0.6 mg/ 0.1 ml subcutaneous pen injector Inject 0.6 mg daily via pen, dX: type 2 diabetes uncontrolled - minoxidil (LONITEN) 2.5 mg tablet Take 1 tablet by mouth once daily. - Clindamycin Phosphate (CLEOCIN T) 1 % lotion Apply to affected area two times a day. - tretinoin (RETIN-A) 0.025 % topical cream Apply to affected area daily at bedtime. Generic okay, for facial acne - pregabalin (LYRICA) 75 mg capsule Take 1 capsule by mouth three times a day as needed (lumbar low back pain and sciatica) for up to 30 days. - valACYclovir (VALTREX) 500 mg tablet Take 1 tablet by mouth once daily. - meloxicam (MOBIC) 15 mg tablet Take 1 tablet by mouth once daily. For back pain, With food. - cyanocobalamin (VITAMIN B-12) 1,000 mcg tab Take 1 tablet by mouth once daily. - blood sugar diagnostic (BLOOD GLUCOSE TEST) test strip Test blood sugar(s) 2 times daily. Dx: Type 2 DM - Uncontrolled E11.65 Insulin: No - metFORMIN (GLUCOPHAGE) 1,000 mg tablet Take 1 tablet by mouth two times a day with meals. - metFORMIN (GLUCOPHAGE) 500 mg tablet Take 1 tablet by mouth daily with dinner. Add to 1000 mg tablet to total 1500 mg at supper - ondansetron orally disintegrating (ZOFRAN ODT) 4 mg disintegrating tablet Take 1 tablet by mouth every 8 hours as needed for nausea/vomiting. - loratadine (CLARITIN) 10 mg tablet Take 1 tablet by mouth once daily. For allergies - albuterol HFA (PROAIR HFA) 90 mcg/actuation inhaler Inhale 2 Puffs as instructed every 6 hours as needed. - triamcinolone acetonide (KENALOG) 0.1 % cream Apply 1 application to affected area two times a day as needed (rash on legs). Apply sparingly to area for rash/itching. - traZODone (DESYREL) 100 mg tablet Take 1-2 tablets by mouth daily at bedtime. - fluconazole (DIFLUCAN) 200 mg tablet Take 1 tablet PO once x 1 day, then repeat on days 3, 5, 7, and 9 - rizatriptan (MAXALT [employer]LL[employer] OPERATIONS SPECIALIST) 5 mg disintegrating tablet Take 1 tablet by mouth as ne (more content not included)... Normal [facility] CBC W Auto Differential pane l (Bld)on 06-20-2024 Basophils (Bld) [#/Vol] 0.05 10*3/uL Normal <0.11 [facility] Comment on above: Order Comment: Speci men Type: BLOOD SPECIMENOrdering Facility: [facility] Address: [address] [place] [address] Performed By: #### 5 7021-8 ####[facility] LABCLIA [id number] [place] [address] [place] Basophils/100 WBC (Bld) 0.4 % Normal [facility] Comment on above: Order Comment: Speci men Type: BLOOD SPECIMENOrdering Facility: [facility] Address: [address] [place] [address] Performed By: #### 5 7021-8 ####[facility] LABCLIA [id number] [place] [address] [place] Differential cell count method Nom (Bld) Auto Normal [facility] Comment on above: Order Comment: Speci men Type: BLOOD SPECIMENOrdering Facility: [facility] Address: [address] [place] [address] Performed By: #### 5 7021-8 ####[facility] LABCLIA [id number] [place] [address] [place] Eosinophils (Bld) [#/Vol] 0.17 10*3/uL Normal <0.46 [facility] Comment on above: Order Comment: Speci men Type: BLOOD SPECIMENOrdering Facility: [facility] Address: [address] [place] [address] Performed By: #### 5 7021-8 ####[facility] LABCLIA [id number] [place] [address] [place] Eosinophils/100 WBC (Bld) 1.5 % Normal [facility] Comment on above: Order Comment: Speci men Type: BLOOD SPECIMENOrdering Facility: [facility] Address: [address] [place] [address] Performed By: #### 5 7021-8 ####[facility] LABCLIA [id number] [place] [address] [place] Erythrocyte distribution width (RBC) [Ratio] 16.0 % High 11.5-15.0 [facility] Comment on above: Order Comment: Speci men Type: BLOOD SPECIMENOrdering Facility: [facility] Address: [address] [place] [address] Performed By: #### 5 7021-8 ####[facility] LABCLIA [id number] [place] [address] [place] Hematocrit (Bld) [Volume fraction] 36.0 % Normal 36.0-46.0 [facility] Comment on above: Order Comment: Speci men Type: BLOOD SPECIMENOrdering Facility: [facility] Address: [address] [place] [address] Performed By: #### 5 7021-8 ####[facility] LABCLIA [id number] [place] [address] [place] Hemoglobin (Bld) [Mass/Vol] 11.0 g/dL Low 11.5-15.5 [facility] Comment on above: Order Comment: Speci men Type: BLOOD SPECIMENOrdering Facility: [facility] Address: [address] [place] [address] Performed By: #### 5 7021-8 ####[facility] LABCLIA [id number] [place] [address] [place] Immature granulocytes (Bld) [#/Vol] 0.04 10*3/uL Normal <0.10 [facility] Comment on above: Order Comment: Speci men Type: BLOOD SPECIMENOrdering Facility: [facility] Address: [address] [place] [address] Performed By: #### 5 7021-8 ####[facility] LABCLIA [id number] [place] [address] [place] Immature granulocytes/100 WBC (Bld) 0.3 % Normal [facility] Comment on above: Order Comment: Speci men Type: BLOOD SPECIMENOrdering Facility: [facility] Address: [address] [place] [address] Performed By: #### 5 7021-8 ####[facility] LABCLIA [id number] [place] [address] [place] Lymphocytes (Bld) [#/Vol] 3.57 10*3/uL Normal 1.00-4.00 [facility] Comment on above: Order Comment: Speci men Type: BLOOD SPECIMENOrdering Facility: [facility] Address: [address] [place] [address] Performed By: #### 5 7021-8 ####[facility] LABCLIA [id number] [place] [address] [place] Lymphocytes/100 WBC (Bld) 31.2 % Normal [facility] Comment on above: Order Comment: Speci men Type: BLOOD SPECIMENOrdering Facility: [facility] Address: [address] [place] [address] Performed By: #### 5 7021-8 ####[facility] LABCLIA [id number] [place] [address] [place] MCH (RBC) [Entitic mass] 26.0 pg Normal 26.0-34.0 [facility] Comment on above: Order Comment: Speci men Type: BLOOD SPECIMENOrdering Facility: [facility] Address: [address] [place] [address] Performed By: #### 5 7021-8 ####[facility] LABCLIA [id number] [place] [address] [place] MCHC (RBC) [Mass/Vol] 30.6 g/dL Normal 30.5-36.0 [facility] Comment on above: Order Comment: Speci men Type: BLOOD SPECIMENOrdering Facility: [facility] Address: [address] [place] [address] Performed By: #### 5 7021-8 ####[facility] LABIA [id number] [place] [address] [place] MCV (RBC) [Entitic vol] 85.1 fL Normal 80.0-100.0 [facility] Comment on above: Order Comment: Speci men Type: BLOOD SPECIMENOrdering Facility: [facility] Address: [address] [place] [address] Performed By: #### 5 7021-8 ####[facility] LABCLIA [id number] [place] [address] [place] Monocytes (Bld) [#/Vol] 0.68 10*3/uL Normal <0.87 [facility] Comment on above: Order Comment: Speci men Type: BLOOD SPECIMENOrdering Facility: [facility] Address: [address] [place] [address] Performed By: #### 5 7021-8 ####[facility] LABCLIA [id number] [place] [address] [place] Monocytes/100 WBC (Bld) 5.9 % Normal [facility] Comment on above: Order Comment: Speci men Type: BLOOD SPECIMENOrdering Facility: [facility] Address: [address] [place] [address] Performed By: #### 5 7021-8 ####[facility] LABCLIA [id number] [place] [address] [place] Neutrophils (Bld) [#/Vol] 6.93 10*3/uL Normal 1.45-7.50 [facility] Comment on above: Order Comment: Speci men Type: BLOOD SPECIMENOrdering Facility: [facility] Address: [address] [place] [address] Performed By: #### 5 7021-8 ####[facility] LABCLIA [id number] [place] [address] [place] Neutrophils/100 WBC (Bld) 60.7 % Normal [facility] Comment on above: Order Comment: Speci men Type: BLOOD SPECIMENOrdering Facility: [facility] Address: [address] [place] [address] Performed By: #### 5 7021-8 ####[facility] LABCLIA [id number] [place] [id number] [place] Nucleated RBC (Bld) [#/Vol] 10*3/uL Normal <0.01 [facility] Comment on above: Order Comment: Speci men Type: BLOOD SPECIMENOrdering Facility: [facility] Address: [address] [place] [address] Performed By: #### 5 7021-8 ####[facility] LABCLIA [id number] [place] [address] [place] Nucleated RBC/100 WBC (Bld) [Ratio] 0.0 /100 WBC Normal [facility] Comment on above: Order Comment: Speci men Type: BLOOD SPECIMENOrdering Facility: [facility] Address: [address] [place] [address] Performed By: #### 5 7021-8 ####[facility] LABCLIA [id number] [place] [address] [place] Platelet mean volume (Bld) [Entitic vol] 10.2 fL Normal 9.0-12.7 [facility] Comment on above: Order Comment: Speci men Type: BLOOD SPECIMENOrdering Facility: [facility] Address: [address] [place] [address] Performed By: #### 5 7021-8 ####[facility] LABIA [id number] [place] [address] [place] Platelets (Bld) [#/Vol] 482 10*3/uL High 150-400 [facility] Comment on above: Order Comment: Speci men Type: BLOOD SPECIMENOrdering Facility: [facility] Address: [address] [place] [address] Performed By: #### 5 7021-8 ####[facility] LABIA [id number] [place] [address] [place] RBC (Bld) [#/Vol] 4.23 10*6/uL Normal 3.90-5.20 [facility] Comment on above: Order Comment: Speci men Type: BLOOD SPECIMENOrdering Facility: [facility] Address: [address] [place] [address] Performed By: #### 5 7021-8 ####[facility] LABCLIA [id number] [place] [address] [place] WBC (Bld) [#/Vol] 11.44 10*3/uL High 3.70-11.00 [place] Comment on above: Order Comment: Speci men Type: BLOOD SPECIMENOrdering Facility: [facility] Address: [address] [place] [address] Performed By: #### 5 7021-8 ####[facility] LABCLIA [id number] [place] [address] [place] Comprehensive metabolic 2000 panelon 06-20-2024 Albumin [Mass/Vol] 3.6 g/dL Low 3.9-4.9 [facility] Comment on above: Order Comment: Speci men Type: BLOOD SPECIMENOrdering Facility: [facility] Address: [address] [place] [address] Performed By: #### 2 4323-8, 31393-3, 39929-0, 2276-4 ####[facility] LABCLIA [id number] [place] [address] [place] ALP [Catalytic activity/Vol] 84 U/L Normal 34-123 [facility] Comment on above: Order Comment: Speci men Type: BLOOD SPECIMENOrdering Facility: [facility] Address: [address] [place] [address] Performed By: #### 2 4323-8, 33153-2, 51114-5, 2276-4 ####[facility] LABCLIA [id number] [place] [address] [place] ALT [Catalytic activity/Vol] 15 U/L Normal 7-38 [facility] Comment on above: Order Comment: Speci men Type: BLOOD SPECIMENOrdering Facility: [facility] Address: [address] [place] [address] Performed By: #### 2 4323-8, 71494-3, 35672-5, 2276-4 ####[facility] LABCLIA [id number] [place] [address] [place] Anion gap [Moles/Vol] 13 mmol/L Normal 8-15 [facility] Comment on above: Order Comment: Speci men Type: BLOOD SPECIMENOrdering Facility: [facility] Address: [address] [place] [address] [place] [address] Performed By: #### 2 4323-8, 33998-1, 49667-3, 6-4 ####[facility] LABCLIA [id number] [place] [address] [place] AST [Catalytic activity/Vol] 24 U/L Normal 13-35 [facility] Comment on above: Order Comment: Speci men Type: BLOOD SPECIMENOrdering Facility: [facility] Address: [address] [place] [address] Performed By: #### 2 4323-8, 97791-6, 97213-5, 2275-4 ####[facility] LABCLIA [id number] [place] [address] [place] Bilirubin [Mass/Vol] 0.3 mg/dL Normal 0.2-1.3 [facility] Comment on above: Order Comment: Speci men Type: BLOOD SPECIMENOrdering Facility: [facility] Address: [address] [place] [address] Performed By: #### 2 4323-8, 58891-1, 85704-8, 2275-4 ####[facility] LABCLIA [id number] [place] [address] [place] Calcium [Mass/Vol] 9.2 mg/dL Normal 8.5-10.2 [facility] Comment on above: Order Comment: Speci men Type: BLOOD SPECIMENOrdering Facility: [facility] Address: [address] [place] [address] [place] [address] Performed By: #### 2 4323-8, 49023-5, 45750-8, 6-4 ####[facility] LABCLIA [id number] [place] [address] [place] Chloride [Moles/Vol] 103 mmol/L Normal 98-107 [facility] Comment on above: Order Comment: Speci men Type: BLOOD SPECIMENOrdering Facility: [facility] Address: [address] [place] [address] Performed By: #### 2 4323-8, 24417-0, 36980-1, 2276-4 ####[facility] LABCLIA [id number] [place] [address] [place] CO2 [Moles/Vol] 22 mmol/L Normal 22-30 [facility] Comment on above: Order Comment: Speci men Type: BLOOD SPECIMENOrdering Facility: [facility] Address: [address] [place] [address] Performed By: #### 2 4323-8, 42465-3, 76506-8, 6-4 ####[facility] LABCLIA [id number] [place] [address] [place] Creatinine [Mass/Vol] 0.67 mg/dL Normal 0.58-0.96 [facility] Comment on above: Order Comment: Speci men Type: BLOOD SPECIMENOrdering Facility: [facility] Address: [address] [place] [address] Performed By: #### 2 4323-8, 08474-0, 63107-9, 6-4 ####[facility] LABCLIA [id number] [place] [address] [place] Creatinine and Glomerular filtration rate.predicted panel (S/P/Bld) 121 mL/min/1.73m??? Normal >=60 [facility] Comment on above: Order Comment: Speci men Type: BLOOD SPECIMENOrdering Facility: [facility] Address: [address] [place] [address] Result Comment: Jessie mated Glomerular Filtration Rate [...] actual GFR. Performed By: #### 2 4323-8, 55539-6, 92882-2, 2275-4 ####[facility] LABCLIA [id number] [address] [address] [place] Glucose [Mass/Vol] 126 mg/dL High 74-99 [facility] Comment on above: Order Comment: Marry french Type: BLOOD SPECIMENOrdering Facility: [facility] Address: [address] [place] [address] Result Comment: The [place] [employer] (ADA) provides guidance for cutoff [...] Standards of Medical Care in Diabetes 2016, [place] [employer]. Diabetes Care. 2016.39(Suppl 1). Performed By: #### 2 4323-8, 21104-9, 09768-0, 2275- ####[facility] LABCLIA [id number] [address] [address] [place] Potassium [Moles/Vol] 4.1 mmol/L Normal 3.7-5.1 [facility] Comment on above: Order Comment: Marry french Type: BLOOD SPECIMENOrdering Facility: [facility] Address: [address] [place] [address] Performed By: #### 2 4323-8, 11829-3, 08220-8, 2275-4 ####[facility] LABCLIA [id number] [address] [address] [place] Protein [Mass/Vol] 7.9 g/dL Normal 6.3-8.0 [facility] Comment on above: Order Comment: Speci men Type: BLOOD SPECIMENOrdering Facility: [facility] Address: [address] [place] [address] Performed By: #### 2 4323-8, 01768-1, 65921-9, 2276-4 ####[facility] LABCLIA [id number] [place] [address] [place] Sodium [Moles/Vol] 138 mmol/L Normal 136-144 [facility] Comment on above: Order Comment: Speci men Type: BLOOD SPECIMENOrdering Facility: [facility] Address: [address] [place] [address] Performed By: #### 2 4323-8, 67303-7, 90500-1, 6-4 ####[facility] LABCLIA [id number] [place] [address] [place] Urea nitrogen [Mass/Vol] 16 mg/dL Normal 7-21 [facility] Comment on above: Order Comment: Speci men Type: BLOOD SPECIMENOrdering Facility: [facility] Address: [address] [place] [address] Performed By: #### 2 4323-8, 35164-2, 58753-2, 6-4 ####[facility] LABCLIA [id number] [place] [id number] [place] Ferritin SerPl-mCncon 2023 Ferritin [Mass/Vol] 196.0 ng/mL Normal 14.7-205.1 [place] Comment on above: Order Comment: Speci men Type: BLOOD SPECIMENOrdering Facility: [facility] Address: [address] [place] [address] Performed By: #### 2 4323-8, 17171-7, 23599-2, 6-4 ####[facility] LABCLIA [id number] [place] [address] [place] HbA1c (Bld)on 06-20-2024 Average glucose Estimated from glycated hemoglobin (Bld) [Mass/Vol] 197 mg/dL Normal [facility] Comment on above: Order Comment: Marry french Type: BLOOD SPECIMENOrdering Facility: [facility] Address: [address] [place] [address] Result Comment: eAG: (Estimated average glucose) is a calculated value from HgbA1c and is training representative of the average blood glucose level in the last 2-3 month period. Performed By: #### 5 5454-3 ####[facility] LABCLIA [id number] [place] [address] [place] HbA1c (Bld) [Mass fraction] 8.5 % High 4.3-5.6 [facility] Comment on above: Order Comment: Marry french Type: BLOOD SPECIMENOrdering Facility: [facility] Address: [address] [place] [address] Result Comment: [place] Diabetes Association guidelines indicate that patients with HgbA1c in the range 5.7-6.4% are at increased risk for development of diabetes, and intervention by lifestyle modification may be beneficial. HgbA1c greater or equal to 6.5% is considered diagnostic of diabetes. Performed By: #### 5 5454-3 ####[facility] LABCLIA [id number] [place] [address] [place] Iron and Iron binding capaci ty panelon 06-20-2024 Iron [Mass/Vol] 34 ug/dL Low 41-186 [facility] Comment on above: Order Comment: Marry french Type: BLOOD SPECIMENOrdering Facility: [facility] Address: [address] [place] [address] Performed By: #### 2 4323-8, 40317-9, 91878-8, 2276-4 ####[facility] LABCLIA [id number] [place] [address] [place] Iron binding capacity [Mass/Vol] 321 ug/dL Normal 232-386 [facility] Comment on above: Order Comment: Speci men Type: BLOOD SPECIMENOrdering Facility: [facility] Address: [address] [place] [address] Performed By: #### 2 4323-8, 91103-9, 40758-5, 2275- ####[facility] LABCLIA [id number] [place] [address] [place] Iron/TIBC [Molar ratio] 10.6 % Low 15.0-57.0 [facility] Comment on above: Order Comment: Speci men Type: BLOOD SPECIMENOrdering Facility: [facility] Address: [address] [place] [address] Performed By: #### 2 4323-8, 44350-8, 24829-8, 2275- ####[facility] LABCLIA [id number] [place] [address] [place] Lipid 1996 panelon 4 Cholesterol [Mass/Vol] 209 mg/dL High <200 [facility] Comment on above: Order Comment: Speci men Type: BLOOD SPECIMENOrdering Facility: [facility] Address: [address] [place] [address] Result Comment: <200 mg/dL, Desirable 200-239 mg/dL, Borderline high >239 mg/dL, High Performed By: #### 2 4323-8, 85235-8, 86071-5, 2275- ####[facility] LABCLIA [id number] [place] [address] [place] Cholesterol in HDL [Mass/Vol] 34 mg/dL Low >39 [facility] Comment on above: Order Comment: Speci men Type: BLOOD SPECIMENOrdering Facility: [facility] Address: [address] [place] [address] Result Comment: 40-5 9 mg/dL, Acceptable >59 mg/dL, High: Negative risk factor for coronary heart disease <40 mg/dL, Low: Positive risk factor for coronary heart disease Performed By: #### 2 4323-8, 41117-8, 57635-0, 2275-4 ####[facility] LABCLIA [id number] [place] [address] [place] Cholesterol in LDL [Mass/Vol] 128 mg/dL High <100 [facility] Comment on above: Order Comment: Speci men Type: BLOOD SPECIMENOrdering Facility: [facility] Address: [address] [place] [address] Result Comment: <100 mg/dL, Optimal 100-129 mg/dL, Near optimal/above optimal 130-159 mg/dL, Borderline high 160-189 mg/dL, High >189 mg/dL, Very high Secondary prevention optimal LDL Cholesterol levels are recommended to be < 70 mg/dL Performed By: #### 2 4323-8, 29865-3, 24327-7, 2275-12 ####[facility] LABCLIA [id number] [place] [address] [place] Cholesterol in LDL/Cholesterol in HDL [Mass ratio] 3.76 {ratio} High <2.54 [facility] Comment on above: Order Comment: Speci men Type: BLOOD SPECIMENOrdering Facility: [facility] Address: [address] [place] [address] Result Comment: Deirdre herron: 1. National Cholesterol Education Program ATP III Guideline At-A-Glance Quick Desk Reference: National Heart, Lung, and Blood [place]. National Institutes of Health. 2001: NIH Publication No. 01-3305. 2. An International Atherosclerosis Society position paper: global recommendations for the management of dyslipidemia: executive summary, Atherosclerosis. 2014: 232(2):410-413. Performed By: #### 2 4323-8, 05433-7, 16434-2, 2275- ####[facility] LABCLIA [id number] [place] [address] [place] Cholesterol in VLDL [Mass/Vol] 47 mg/dL High <30 [facility] Comment on above: Order Comment: Speci men Type: BLOOD SPECIMENOrdering Facility: [facility] Address: [address] [place] [address] Performed By: #### 2 4323-8, 04697-0, 67107-2, 2275-4 ####[facility] LABCLIA [id number] [place] [id number] [place] Cholesterol non HDL [Mass/Vol] 175 mg/dL High <130 [facility] Comment on above: Order Comment: Speci men Type: BLOOD SPECIMENOrdering Facility: [facility] Address: [address] [place] [address] Result Comment: <130 mg/dL, Optimal 130-159 mg/dL, Near optimal/above optimal 160-189 mg/dL, Borderline high 190-219 mg/dL, High >219 mg/dL, Very high Secondary prevention optimal non HDL Cholesterol levels are recommended to be <100 mg/dL Performed By: #### 2 4323-8, 55143-8, 86437-9, 2275- ####[facility] LABCLIA [id number] [place] [address] [place] Cholesterol.total/C holesterol in HDL [Mass ratio] 6.15 {ratio} High <5.10 [facility] Comment on above: Order Comment: Speci men Type: BLOOD SPECIMENOrdering Facility: [facility] Address: [address] [place] [address] Performed By: #### 2 4323-8, 80829-4, 66236-3, 2275- ####[facility] LABCLIA [id number] [place] [id number] [place] FASTING TIME 10 hrs Normal [facility] Comment on above: Order Comment: Speci men Type: BLOOD SPECIMENOrdering Facility: [facility] Address: [address] [place] [address] Performed By: #### 2 4323-8, 16841-1, 45122-8, 2275-4 ####[facility] LABCLIA [id number] [place] [address] [place] Triglyceride [Mass/Vol] 237 mg/dL High <150 [facility] Comment on above: Order Comment: Speci men Type: BLOOD SPECIMENOrdering Facility: [facility] Address: [address] [place] [address] Result Comment: <150 mg/dL, Normal 150-199 mg/dL, Borderline high 200-499 mg/dL, High >499 mg/dL, Very high Performed By: #### 2 4323-8, 64076-4, 53254-3, 2276-4 ####[facility] LABCLIA [id number] [place] [address] [id number] [id number] [facility] [place] CNPNon 06-04-2024 CNPN Telephone (INTMWS) MARCIE LOYOLA ([id number]) 1995 F T Date Time Provider Department 06/04/24 XIANG RUIZ INTWS During your visit today, we recorded the following information about you: Meagan Lindsey MA 06/04/2024 3:52 PM Signed Please see provider message -- [facility] My Chart Rx Pool (supporting Xiang Ruiz DO)2 days ago BT Hello I am having my prescription for my wheelchair filled by [facility] here in [place] and they asked me to measure how wide my hips were for the chair so they can get an idea of what they need to order and then they wanted me to send this info to my doctor and have you guys fax it to them so my measurement is 30 inches and their fax number is [phone] thank you Xiang Ruiz DO 06/08/2024 7:35 AM Signed Please load order needed DO Sydnie Santizo Linda M, LPN 06/08/2024 9:18 AM Signed Not at all sure how to load this order. Prashanth Baird PA-C 06/08/2024 11:50 AM Signed Wheelchair ordered with measurements-please print and fax below. Please let me know if you need a different order NOEMY Alcantara Brittany L, MA 06/08/2024 1:01 PM Signed Order with NAEEM 04/21/24 documented need for wheelchair printed. [phone]. Vivien Ozuna MA Allergies As of Date: 06/04/2024 Noted Allergy Reaction ONION 07/21/2013 10 - Anaphylaxis PINE OIL 07/21/2013 4 - Hives 7 - Swelling 9 - Itching Date Reviewed: 02/06/2024 Reviewed by: Ritika Harris RN - Fully Assessed Reason for Visit: Orders [681] Primary Visit Diagnosis:Bilateral chronic knee pain [M25.561, M25.562, G89.29] Other Visit Diagnosis:Morbid obesity with BMI of 60.0-69.9, adult ([facility]) [E66.01, Z68.44] Order(s):Wheel Chaironce daily. Hip width 30 inches.Disp: 1 EachRfl: 0 Prescriptions as of 06/08/2024 - Wheel Chair once daily. Hip width 30 inches. - cyclobenzaprine (FLEXERIL) 10 mg tablet Take 1 tablet by mouth three times a day as needed for muscle spasm. - pen needle, diabetic, safety (COMFORT EZ PRO SAFETY PEN NDL) 31 gauge x 3/16 ndle Use SQ daily with Victoza pen. - liraglutide (VICTOZA) 0.6 mg/ 0.1 ml subcutaneous pen injector Inject 0.6 mg daily via pen, dX: type 2 diabetes uncontrolled - minoxidil (LONITEN) 2.5 mg tablet Take 1 tablet by mouth once daily. - Clindamycin Phosphate (CLEOCIN T) 1 % lotion Apply to affected area two times a day. - tretinoin (RETIN-A) 0.025 % topical cream Apply to affected area daily at bedtime. Generic okay, for facial acne - losartan-hydroCHLOROthi azide (HYZAAR) 100-12.5 mg per tablet Take 1 tablet by mouth once daily. - pregabalin (LYRICA) 75 mg capsule Take 1 capsule by mouth three times a day as needed (lumbar low back pain and sciatica) for up to 30 days. - valACYclovir (VALTREX) 500 mg tablet Take 1 tablet by mouth once daily. - meloxicam (MOBIC) 15 mg tablet Take 1 tablet by mouth once daily. For back pain, With food. - cyanocobalamin (VITAMIN B-12) 1,000 mcg tab Take 1 tablet by mouth once daily. - blood sugar diagnostic (BLOOD GLUCOSE TEST) test strip Test blood sugar(s) 2 times daily. Dx: Type 2 DM - Uncontrolled E11.65 Insulin: No - metFORMIN (GLUCOPHAGE) 1,000 mg tablet Take 1 tablet by mouth two times a day with meals. - metFORMIN (GLUCOPHAGE) 500 mg tablet Take 1 tablet by mouth daily with dinner. Add to 1000 mg tablet to total 1500 mg at supper - ondansetron orally disintegrating (ZOFRAN ODT) 4 mg disintegrating tablet Take 1 tablet by mouth every 8 hours as needed for nausea/vomiting. - loratadine (CLARITIN) 10 mg tablet Take 1 tablet by mouth once daily. For allergies - albuterol HFA (PROAIR HFA) 90 mcg/actuation inhaler Inhale 2 Puffs as instructed every 6 hours as needed. - triamcinolone acetonide (KENALOG) 0.1 % cream Apply 1 application to affected area two times a day as needed (rash on legs). Apply sparingly to area for rash/itching. - traZODone (DESYREL) 100 mg tablet Take 1-2 tablets by mouth daily at bedtime. - fluconazole (DIFLUCAN) 200 mg tablet Take 1 tablet PO once x 1 day, then repeat on days 3, 5, 7, and 9 - rizatriptan (MAXALT [employer]TELLIGENCE OPERATIONS SPECIALIST) 5 mg disintegrating tablet Take 1 tablet [...] tablet by mouth every 8 hours as nee (more content not included)... Normal [facility] 25(OH)D3 SerPl-mCncon 2023 25-hydroxyvitamin D3 [Mass/Vol] 28.1 ng/mL Low 31.0-80.0 [facility] Comment on above: Order Comment: Speci men Type: BLOOD SPECIMENOrdering Facility: [facility] Address: [address] [place] [address] Performed By: #### 1 989-3 ####[facility] LABIA [id number] [place] [address] [place] CBC W Auto Differential pane l (Bld)on 04-27-2024 Basophils (Bld) [#/Vol] 0.06 10*3/uL Normal <0.11 [facility] Comment on above: Order Comment: Speci men Type: BLOOD SPECIMENOrdering Facility: [facility] Address: [address] [place] [address] Performed By: #### 5 7021-8 ####[facility] LABIA [id number] [place] [address] [place] Basophils/100 WBC (Bld) 0.6 % Normal [facility] Comment on above: Order Comment: Speci men Type: BLOOD SPECIMENOrdering Facility: [facility] Address: [address] [place] [address] Performed By: #### 5 7021-8 ####[facility] LABIA [id number] [place] [address] [place] Differential cell count method Nom (Bld) Auto Normal [facility] Comment on above: Order Comment: Speci men Type: BLOOD SPECIMENOrdering Facility: [facility] Address: [address] [place] [address] Performed By: #### 5 7021-8 ####[facility] LABCLIA [id number] [place] [address] [place] Eosinophils (Bld) [#/Vol] 0.21 10*3/uL Normal <0.46 [facility] Comment on above: Order Comment: Speci men Type: BLOOD SPECIMENOrdering Facility: [facility] Address: [address] [place] [address] Performed By: #### 5 7021-8 ####[facility] LABCLIA [id number] [place] [address] [place] Eosinophils/100 WBC (Bld) 2.0 % Normal [facility] Comment on above: Order Comment: Speci men Type: BLOOD SPECIMENOrdering Facility: [facility] Address: [address] [place] [address] Performed By: #### 5 7021-8 ####[facility] LABIA [id number] [place] [address] [place] Erythrocyte distribution width (RBC) [Ratio] 15.7 % High 11.5-15.0 [facility] Comment on above: Order Comment: Speci men Type: BLOOD SPECIMENOrdering Facility: [facility] Address: [address] [place] [address] Performed By: #### 5 7021-8 ####[facility] LABCLIA [id number] [place] [address] [place] Hematocrit (Bld) [Volume fraction] 35.3 % Low 36.0-46.0 [facility] Comment on above: Order Comment: Speci men Type: BLOOD SPECIMENOrdering Facility: [facility] Address: [address] [place] [address] Performed By: #### 5 7021-8 ####[facility] LABCLIA [id number] [place] [address] [place] Hemoglobin (Bld) [Mass/Vol] 10.9 g/dL Low 11.5-15.5 [facility] Comment on above: Order Comment: Speci men Type: BLOOD SPECIMENOrdering Facility: [facility] Address: [address] [place] [address] Performed By: #### 5 7021-8 ####[facility] LABCLIA [id number] [place] [address] [place] Immature granulocytes (Bld) [#/Vol] 0.03 10*3/uL Normal <0.10 [facility] Comment on above: Order Comment: Speci men Type: BLOOD SPECIMENOrdering Facility: [facility] Address: [address] [place] [address] Performed By: #### 5 7021-8 ####[facility] LABCLIA [id number] [place] [address] [place] Immature granulocytes/100 WBC (Bld) 0.3 % Normal [facility] Comment on above: Order Comment: Speci men Type: BLOOD SPECIMENOrdering Facility: [facility] Address: [address] [place] [address] Performed By: #### 5 7021-8 ####[facility] LABCLIA [id number] [place] [address] [place] Lymphocytes (Bld) [#/Vol] 2.91 10*3/uL Normal 1.00-4.00 [facility] Comment on above: Order Comment: Speci men Type: BLOOD SPECIMENOrdering Facility: [facility] Address: [address] [place] [address] Performed By: #### 5 7021-8 ####[facility] LABCLIA [id number] [place] [address] [place] Lymphocytes/100 WBC (Bld) 27.3 % Normal [facility] Comment on above: Order Comment: Speci men Type: BLOOD SPECIMENOrdering Facility: [facility] Address: [address] [place] [address] Performed By: #### 5 7021-8 ####[facility] LABIA [id number] [place] [address] [place] MCH (RBC) [Entitic mass] 26.4 pg Normal 26.0-34.0 [facility] Comment on above: Order Comment: Speci men Type: BLOOD SPECIMENOrdering Facility: [facility] Address: [address] [place] [address] Performed By: #### 5 7021-8 ####[facility] [id number] [place] [address] [place] MCHC (RBC) [Mass/Vol] 30.9 g/dL Normal 30.5-36.0 [facility] Comment on above: Order Comment: Speci men Type: BLOOD SPECIMENOrdering Facility: [facility] Address: [address] [place] [address] Performed By: #### 5 7021-8 ####[facility] [id number] [place] [address] [place] MCV (RBC) [Entitic vol] 85.5 fL Normal 80.0-100.0 [facility] Comment on above: Order Comment: Speci men Type: BLOOD SPECIMENOrdering Facility: [facility] Address: [address] [place] [address] Performed By: #### 5 7021-8 ####[facility] [id number] [place] [address] [place] Monocytes (Bld) [#/Vol] 0.71 10*3/uL Normal <0.87 [facility] Comment on above: Order Comment: Speci men Type: BLOOD SPECIMENOrdering Facility: [facility] Address: [address] [place] [address] Performed By: #### 5 7021-8 ####[facility] LABVER[facility] [id number] [place] [address] [place] Monocytes/100 WBC (Bld) 6.7 % Normal [facility] Comment on above: Order Comment: Speci men Type: BLOOD SPECIMENOrdering Facility: [facility] Address: [address] [place] [address] Performed By: #### 5 7021-8 ####[facility] LABCLIA [id number] [place] [address] [place] Neutrophils (Bld) [#/Vol] 6.75 10*3/uL Normal 1.45-7.50 [facility] Comment on above: Order Comment: Speci men Type: BLOOD SPECIMENOrdering Facility: [facility] Address: [address] [place] [address] Performed By: #### 5 7021-8 ####[facility] LABCLIA [id number] [place] [address] [place] Neutrophils/100 WBC (Bld) 63.1 % Normal [facility] Comment on above: Order Comment: Speci men Type: BLOOD SPECIMENOrdering Facility: [facility] Address: [address] [place] [address] Performed By: #### 5 7021-8 ####[facility] LABCLIA [id number] [place] [address] [place] Nucleated RBC (Bld) [#/Vol] 10*3/uL Normal <0.01 [facility] Comment on above: Order Comment: Speci men Type: BLOOD SPECIMENOrdering Facility: [facility] Address: [address] [place] [address] Performed By: #### 5 7021-8 ####[facility] LABCLIA [id number] [place] [address] [place] Nucleated RBC/100 WBC (Bld) [Ratio] 0.0 /100 WBC Normal [facility] Comment on above: Order Comment: Speci men Type: BLOOD SPECIMENOrdering Facility: [facility] Address: [address] [place] [address] Performed By: #### 5 7021-8 ####[facility] LABCLIA [id number] [place] [id number] [place] Platelet mean volume (Bld) [Entitic vol] 9.5 fL Normal 9.0-12.7 [facility] Comment on above: Order Comment: Speci men Type: BLOOD SPECIMENOrdering Facility: [facility] Address: [address] [place] [address] Performed By: #### 5 7021-8 ####[facility] LABCLIA [id number] [place] [address] [place] Platelets (Bld) [#/Vol] 577 10*3/uL High 150-400 [facility] Comment on above: Order Comment: Speci men Type: BLOOD SPECIMENOrdering Facility: [facility] Address: [address] [place] [address] Performed By: #### 5 7021-8 ####[facility] LABCLIA [id number] [place] [address] [place] RBC (Bld) [#/Vol] 4.13 10*6/uL Normal 3.90-5.20 [facility] Comment on above: Order Comment: Speci men Type: BLOOD SPECIMENOrdering Facility: [facility] Address: [address] [place] [address] Performed By: #### 5 7021-8 ####[facility] LABCLIA [id number] [place] [id number] [place] WBC (Bld) [#/Vol] 10.67 10*3/uL Normal 3.70-11.00 [place] Comment on above: Order Comment: Speci men Type: BLOOD SPECIMENOrdering Facility: [facility] Address: [address] [place] [address] Performed By: #### 5 7021-8 ####[facility] LABCLIA [id number] [address] [address] [place] Comprehensive metabolic 2000 panelon 04-27-2024 Albumin [Mass/Vol] 3.9 g/dL Normal 3.9-4.9 [facility] Comment on above: Order Comment: Speci men Type: BLOOD SPECIMENOrdering Facility: [facility] Address: [address] [place] [address] Performed By: #### 2 4323-8, 53617-2, 2132-05 ####[facility] LABCLIA [id number] [place] [id number] [place] ALP [Catalytic activity/Vol] 100 U/L Normal 34-123 [facility] Comment on above: Order Comment: Speci men Type: BLOOD SPECIMENOrdering Facility: [facility] Address: [address] [place] [address] Performed By: #### 2 4323-8, 86637-4, 2132-05 ####[facility] LABIA [id number] [place] [address] [place] ALT [Catalytic activity/Vol] 8 U/L Normal 7-38 [facility] Comment on above: Order Comment: Speci men Type: BLOOD SPECIMENOrdering Facility: [facility] Address: [address] [place] [address] Performed By: #### 2 4323-8, 92863-8, 2132-05 ####[facility] LABIA [id number] [address] [address] [place] Anion gap [Moles/Vol] 13 mmol/L Normal 8-15 [facility] Comment on above: Order Comment: Speci men Type: BLOOD SPECIMENOrdering Facility: [facility] Address: [address] [place] [address] Performed By: #### 2 4323-8, 52531-9, 2132-05 ####[facility] LABIA [id number] [place] [address] [place] AST [Catalytic activity/Vol] 19 U/L Normal 13-35 [facility] Comment on above: Order Comment: Speci men Type: BLOOD SPECIMENOrdering Facility: [facility] Address: [address] [place] [address] Performed By: #### 2 4323-8, 75702-4, 2132-05 ####[facility] LABCLIA [id number] [place] [address] [place] Bilirubin [Mass/Vol] 0.5 mg/dL Normal 0.2-1.3 [facility] Comment on above: Order Comment: Speci men Type: BLOOD SPECIMENOrdering Facility: [facility] Address: [address] [place] [address] Performed By: #### 2 4323-8, , 2132-05 ####[facility] LABCLIA [id number] [place] [address] [place] Calcium [Mass/Vol] 9.6 mg/dL Normal 8.5-10.2 [facility] Comment on above: Order Comment: Speci men Type: BLOOD SPECIMENOrdering Facility: [facility] Address: [address] [place] [address] Performed By: #### 2 4323-8, , 2132-05 ####[facility] LABCLIA [id number] [place] [address] [place] Chloride [Moles/Vol] 98 mmol/L Normal 98-107 [facility] Comment on above: Order Comment: Speci men Type: BLOOD SPECIMENOrdering Facility: [facility] Address: [address] [place] [address] Performed By: #### 2 4323-8, 37214-7, 2132-05 ####[facility] LABCLIA [id number] [place] [id number] [place] CO2 [Moles/Vol] 25 mmol/L Normal 22-30 [facility] Comment on above: Order Comment: Speci men Type: BLOOD SPECIMENOrdering Facility: [facility] Address: [address] [place] [address] Performed By: #### 2 4323-8, 45168-3, 2132-05 ####[facility] LABCLIA [id number] [facility] [place] [id number] [place] Creatinine [Mass/Vol] 0.81 mg/dL Normal 0.58-0.96 [facility] Comment on above: Order Comment: Speci men Type: BLOOD SPECIMENOrdering Facility: [facility] Address: [address] [place] [address] Performed By: #### 2 4323-8, , 2132-05 ####[facility] LABCLIA [id number] [place] [address] [place] Creatinine and Glomerular filtration rate.predicted panel (S/P/Bld) 100 mL/min/1.73m??? Normal >=60 [facility] Comment on above: Order Comment: Speci men Type: BLOOD SPECIMENOrdering Facility: [facility] Address: [address] [place] [address] Result Comment: Jessie mated Glomerular Filtration Rate [...] actual GFR. Performed By: #### 2 4323-8, 21518-9, 2132-05 ####[facility] LABCLIA [id number] [place] [address] [place] Glucose [Mass/Vol] 121 mg/dL High 74-99 [facility] Comment on above: Order Comment: Speci men Type: BLOOD SPECIMENOrdering Facility: [facility] Address: [address] [place] [address] Result Comment: The [place] [employer] (ADA) provides guidance for cutoff [...] Standards of Medical Care in Diabetes 2016, [place] [employer]. Diabetes Care. 2016.39(Suppl 1). Performed By: #### 2 4323-8, , 2132-05 ####[facility] LABCLIA [id number] [place] [address] [place] Potassium [Moles/Vol] 4.0 mmol/L Normal 3.7-5.1 [facility] Comment on above: Order Comment: Speci men Type: BLOOD SPECIMENOrdering Facility: [facility] Address: [address] [place] [id number] Performed By: #### 2 4323-8, , 2132-05 ####[facility] LABIA [id number] [place] [id number] [place] Protein [Mass/Vol] 8.3 g/dL High 6.3-8.0 [facility] Comment on above: Order Comment: Speci men Type: BLOOD SPECIMENOrdering Facility: [facility] Address: [address] [place] [address] Performed By: #### 2 4323-8, , 2132-05 ####[facility] LABCLIA [id number] [place] [id number] [place] Sodium [Moles/Vol] 136 mmol/L Normal 136-144 [facility] Comment on above: Order Comment: Speci men Type: BLOOD SPECIMENOrdering Facility: [facility] Address: [address] [place] [address] Performed By: #### 2 4323-8, 46302-7, 2132-05 ####[facility] LABCLIA [id number] [place] [address] [place] Urea nitrogen [Mass/Vol] 11 mg/dL Normal 7-21 [facility] Comment on above: Order Comment: Speci men Type: BLOOD SPECIMENOrdering Facility: [facility] Address: [address] [place] [address] Performed By: #### 2 4323-8, 32811-7, 2132-05 ####[facility] LABCLIA [id number] [place] [address] [place] HbA1c (Bld)on 04-27-2024 Average glucose Estimated from glycated hemoglobin (Bld) [Mass/Vol] 183 mg/dL Normal [facility] Comment on above: Order Comment: Speci [facility] Type: BLOOD SPECIMENOrdering Facility: [facility] Address: [address] [place] [address] Result Comment: eAG: (Estimated average glucose) is a calculated value from HgbA1c and is training representative of the average blood glucose level in the last 2-3 month period. Performed By: #### 5 5454-3 ####[facility] LABIA [id number] [place] [address] [place] HbA1c (Bld) [Mass fraction] 8.0 % High 4.3-5.6 [facility] Comment on above: Order Comment: Speci [facility] Type: BLOOD SPECIMENOrdering Facility: [facility] Address: [address] [place] [address] Result Comment: [place] Diabetes Association guidelines indicate that patients with HgbA1c in the range 5.7-6.4% are at increased risk for development of diabetes, and intervention by lifestyle modification may be beneficial. HgbA1c greater or equal to 6.5% is considered diagnostic of diabetes. Performed By: #### 5 5454-3 ####[facility] LABCLIA [id number] [address] [address] [place] Lipid 1996 panelon 4 Cholesterol [Mass/Vol] 246 mg/dL High <200 [facility] Comment on above: Order Comment: Speci men Type: BLOOD SPECIMENOrdering Facility: [facility] Address: [address] [place] [address] Result Comment: <200 mg/dL, Desirable 200-239 mg/dL, Borderline high >239 mg/dL, High Performed By: #### 2 4323-8, 49545-7, 2132-05 ####[facility] LABCLIA [id number] [place] [address] [place] Cholesterol in HDL [Mass/Vol] 38 mg/dL Low >39 [facility] Comment on above: Order Comment: Speci men Type: BLOOD SPECIMENOrdering Facility: [facility] Address: [address] [place] [address] Result Comment: 40-5 9 mg/dL, Acceptable >59 mg/dL, High: Negative risk factor for coronary heart disease <40 mg/dL, Low: Positive risk factor for coronary heart disease Performed By: #### 2 4323-8, , 2132-05 ####[facility] LABCLIA [id number] [address] [place] Cholesterol in LDL [Mass/Vol] 175 mg/dL High <100 [facility] Comment on above: Order Comment: Speci men Type: BLOOD SPECIMENOrdering Facility: [facility] Address: [address] [place] [address] Result Comment: <100 mg/dL, Optimal 100-129 mg/dL, Near optimal/above optimal 130-159 mg/dL, Borderline high 160-189 mg/dL, High >189 mg/dL, Very high Secondary prevention optimal LDL Cholesterol levels are recommended to be < 70 mg/dL Performed By: #### 2 4323-8, 72158-9, 2132-05 ####[facility] LABCLIA [id number] [place] [address] [place] Cholesterol in LDL/Cholesterol in HDL [Mass ratio] 4.61 {ratio} High <2.54 [facility] Comment on above: Order Comment: Marry men Type: BLOOD SPECIMENOrdering Facility: [facility] Address: [address] [place] [address] Result Comment: Refe rence: 1. National Cholesterol Education Program ATP III Guideline At-A-Glance Quick Desk Reference: National Heart, Lung, and Blood [place]. National Institutes of Health. 2001: NIH Publication No. 01-3305. 2. An International Atherosclerosis Society position paper: global recommendations for the management of dyslipidemia: executive summary, Atherosclerosis. 2014: 232(2):410-413. Performed By: #### 2 4323-8, , 2132-05 ####[facility] LABIA [id number] [place] [address] [place] Cholesterol in VLDL [Mass/Vol] 33 mg/dL High <30 [facility] Comment on above: Order Comment: Marry french Type: BLOOD SPECIMENOrdering Facility: [facility] Address: [address] [place] [address] Performed By: #### 2 4323-8, , 2132-05 ####[facility] LABIA [id number] [place] [address] [place] Cholesterol non HDL [Mass/Vol] 208 mg/dL High <130 [facility] Comment on above: Order Comment: Astoni men Type: BLOOD SPECIMENOrdering Facility: [facility] Address: [address] [place] [address] Result Comment: <130 mg/dL, Optimal 130-159 mg/dL, Near optimal/above optimal 160-189 mg/dL, Borderline high 190-219 mg/dL, High >219 mg/dL, Very high Secondary prevention optimal non HDL Cholesterol levels are recommended to be <100 mg/dL Performed By: #### 2 4323-8, 49793-9, 2132-05 ####[facility] LABCLIA [id number] [address] [address] [place] Cholesterol.total/C holesterol in HDL [Mass ratio] 6.47 {ratio} High <5.10 [facility] Comment on above: Order Comment: Speci men Type: BLOOD SPECIMENOrdering Facility: [facility] Address: [address] [place] [address] Performed By: #### 2 4323-8, 05073-7, 2132-05 ####[facility] LABIA [id number] [address] [address] [place] FASTING TIME 12 hrs Normal [facility] Comment on above: Order Comment: Speci men Type: BLOOD SPECIMENOrdering Facility: [facility] Address: [address] [place] [address] Performed By: #### 2 4323-8, , 2132-05 ####[facility] LABIA [id number] [address] [address] [place] Triglyceride [Mass/Vol] 163 mg/dL High <150 [facility] Comment on above: Order Comment: Speci men Type: BLOOD SPECIMENOrdering Facility: [facility] Address: [address] [place] [address] Result Comment: <150 mg/dL, Normal 150-199 mg/dL, Borderline high 200-499 mg/dL, High >499 mg/dL, Very high Performed By: #### 2 4323-8, 20307-4, 2132-05 ####[facility] LABIA [id number] [address] [address] [place] [facility] 024 Cobalamin (Vitamin B12) [Mass/Vol] 368 pg/mL Normal 232-1245 [facility] Comment on above: Order Comment: Speci men Type: BLOOD SPECIMENOrdering Facility: [facility] Address: [address] [place] [address] Performed By: #### 2 4323-8, 88125-5, 2132-9 ####[facility] JOHN [id number] DEANAMiguel [address] OF [facility] [place] 04-24-2024 [facility] Telephone (FAMPWS) MARCIE LOYOLA ([id number]) 1995 [facility] Date Time Provider Department 04/24/24 [facility] During your visit today, we recorded the following information about you: Meagan Lindsey MA 04/24/2024 8:09 AM Signed Please see pt message -- I went to take my victoza today and read three the instructions and watched a video I found of someone using it and I realized I wasn?t given any needle tips with it so I can?t use it without having those if the doctor could send in a prescription for them I?d appreciate it since I don?t have then little needle tips Roxana Ocasio APRN.CNP 04/24/2024 11:25 AM Signed I'm not sure what size needles for Victoza? If we can find this out, I can get them sent in. RONDA Hart Jazzmin, MA 04/24/2024 1:06 PM Signed 31G 5mm per pharmacy BEATRIZ Quevedo Rebekah, APRN.CNP 04/24/2024 1:52 PM Signed The following approved medication requests have been transmitted electronically. Requested Prescriptions Signed Prescriptions Disp Refills pen needle, diabetic, safety (COMFORT EZ PRO SAFETY PEN NDL) 31 gauge x 3/16 ndle 100 Each 1 Sig: Use SQ daily with Victoza pen. Authorizing Provider: XIANG RUIZ Ordering User: ROXANA OCASIO APRN.CNP Holiday, JazzBEATRIZ galeana 04/24/2024 1:54 PM Signed Pt informed via [employer] message Meagan Lindsey BEATRIZ Allergies As of Date: 04/24/2024 Noted Allergy Reaction ONION 07/21/2013 10 - Anaphylaxis PINE OIL 07/21/2013 4 - Hives 7 - Swelling 9 - Itching Date Reviewed: 02/06/2024 Reviewed by: Ritika Harris RN - Fully Assessed Reason for Visit: Medication Problem [65] Primary Visit Diagnosis:Type 2 diabetes mellitus with hyperglycemia, without long-term current use of insulin (HCC) [E11.65] Order(s):pen needle, diabetic, safety (COMFORT EZ PRO SAFETY PEN NDL) 31 gauge x 3/16 ndleUse SQ daily with Victoza pen.Disp: 100 EachRfl: 1 Prescriptions as of 04/24/2024 - pen needle, diabetic, safety (COMFORT EZ PRO SAFETY PEN NDL) 31 gauge x 3/16 ndle Use SQ daily with Victoza pen. - liraglutide (VICTOZA) 0.6 mg/ 0.1 ml subcutaneous pen injector Inject 0.6 mg daily via pen, dX: type 2 diabetes uncontrolled - minoxidil (LONITEN) 2.5 mg tablet Take 1 tablet by mouth once daily. - Clindamycin Phosphate (CLEOCIN T) 1 % lotion Apply to affected area two times a day. - tretinoin (RETIN-A) 0.025 % topical cream Apply to affected area daily at bedtime. Generic okay, for facial acne - losartan-hydroCHLOROthi azide (HYZAAR) 100-12.5 mg per tablet Take 1 tablet by mouth once daily. - pregabalin (LYRICA) 75 mg capsule Take 1 capsule by mouth three times a day as needed (lumbar low back pain and sciatica) for up to 30 days. - valACYclovir (VALTREX) 500 mg tablet Take 1 tablet by mouth once daily. - meloxicam (MOBIC) 15 mg tablet Take 1 tablet by mouth once daily. For back pain, With food. - cyanocobalamin (VITAMIN B-12) 1,000 mcg tab Take 1 tablet by mouth once daily. - blood sugar diagnostic (BLOOD GLUCOSE TEST) test strip Test blood sugar(s) 2 times daily. Dx: Type 2 DM - Uncontrolled E11.65 Insulin: No - cyclobenzaprine (FLEXERIL) 10 mg tablet Take 1 tablet by mouth three times a day as needed for muscle spasm. - metFORMIN (GLUCOPHAGE) 1,000 mg tablet Take 1 tablet by mouth two times a day with meals. - metFORMIN (GLUCOPHAGE) 500 mg tablet Take 1 tablet by mouth daily with dinner. Add to 1000 mg tablet to total 1500 mg at supper - ondansetron orally disintegrating (ZOFRAN ODT) 4 mg disintegrating tablet Take 1 tablet by mouth every 8 hours as needed for nausea/vomiting. - loratadine (CLARITIN) 10 mg tablet Take 1 tablet by mouth once daily. For allergies - albuterol HFA (PROAIR HFA) 90 mcg/actuation inhaler Inhale 2 Puffs as instructed every 6 hours as needed. - triamcinolone acetonide (KENALOG) 0.1 % cream Apply 1 application to affected area two times a day as needed (rash on legs). Apply sparingly to area for rash/itching. - traZODone (DESYREL) 100 mg tablet Take 1-2 tablets by mouth daily at bedtime. - fluconazole (DIFLUCAN) 200 mg tablet Take 1 tablet PO once x 1 day, then repeat on days 3, 5, 7, and 9 - rizatriptan (MAXALT INTELLIGENCE OPERATIONS SPECIALIST) 5 mg disintegrating tablet Take 1 tablet [...] three times daily as needed (Muscle spasms). (more content not included)... Normal [facility] [place] 04-22-2024 [facility] Telephone (FAMPWS) MARCIE LOYOLA ([id number]) 1995 [facility] Date Time Provider Department 04/22/24 XIANG RUIZ During your visit today, we recorded the following information about you: Alexus Alonso RN 04/22/2024 9:50 AM Signed Eliseo from [facility]'s pharmacy calls and states that they received order for Victoza. Eliseo states that when provider titrates medication up then provider will have to send in new prescription for this. Eliseo will process prescription as the 0.6 mg but per insurance new prescription will have to be sent if medication is increased. FERNANDO Elena Alyson, APRN.AUTOMATIC FANCY MACHINE OPERATOR 04/22/2024 6:23 PM Signed Noted. Thank you, Lisa De La O APRN.AUTOMATIC FANCY MACHINE OPERATOR Allergies As of Date: 04/22/2024 Noted Allergy Reaction ONION 07/21/2013 10 - Anaphylaxis PINE OIL 07/21/2013 4 - Hives 7 - Swelling 9 - Itching Date Reviewed: 02/06/2024 Reviewed by: Ritika Harris RN - Fully Assessed Reason for Visit: Medication Information [Other] Prescriptions as of 04/22/2024 - liraglutide (VICTOZA) 0.6 mg/ 0.1 ml subcutaneous pen injector Inject 0.6 mg daily via pen, dX: type 2 diabetes uncontrolled - minoxidil (LONITEN) 2.5 mg tablet Take 1 tablet by mouth once daily. - Clindamycin Phosphate (CLEOCIN T) 1 % lotion Apply to affected area two times a day. - tretinoin (RETIN-A) 0.025 % topical cream Apply to affected area daily at bedtime. Generic okay, for facial acne - losartan-hydroCHLOROthi azide (HYZAAR) 100-12.5 mg per tablet Take 1 tablet by mouth once daily. - pregabalin (LYRICA) 75 mg capsule Take 1 capsule by mouth three times a day as needed (lumbar low back pain and sciatica) for up to 30 days. - valACYclovir (VALTREX) 500 mg tablet Take 1 tablet by mouth once daily. - meloxicam (MOBIC) 15 mg tablet Take 1 tablet by mouth once daily. For back pain, With food. - cyanocobalamin (VITAMIN B-12) 1,000 mcg tab Take 1 tablet by mouth once daily. - blood sugar diagnostic (BLOOD GLUCOSE TEST) test strip Test blood sugar(s) 2 times daily. Dx: Type 2 DM - Uncontrolled E11.65 Insulin: No - cyclobenzaprine (FLEXERIL) 10 mg tablet Take 1 tablet by mouth three times a day as needed for muscle spasm. - metFORMIN (GLUCOPHAGE) 1,000 mg tablet Take 1 tablet by mouth two times a day with meals. - metFORMIN (GLUCOPHAGE) 500 mg tablet Take 1 tablet by mouth daily with dinner. Add to 1000 mg tablet to total 1500 mg at supper - ondansetron orally disintegrating (ZOFRAN ODT) 4 mg disintegrating tablet Take 1 tablet by mouth every 8 hours as needed for nausea/vomiting. - loratadine (CLARITIN) 10 mg tablet Take 1 tablet by mouth once daily. For allergies - albuterol HFA (PROAIR HFA) 90 mcg/actuation inhaler Inhale 2 Puffs as instructed every 6 hours as needed. - triamcinolone acetonide (KENALOG) 0.1 % cream Apply 1 application to affected area two times a day as needed (rash on legs). Apply sparingly to area for rash/itching. - traZODone (DESYREL) 100 mg tablet Take 1-2 tablets by mouth daily at bedtime. - fluconazole (DIFLUCAN) 200 mg tablet Take 1 tablet PO once x 1 day, then repeat on days 3, 5, 7, and 9 - rizatriptan (MAXALT INTELLIGENCE OPERATIONS SPECIALIST) 5 mg disintegrating tablet Take 1 tablet [...] Use as directed for allergic reaction - albuterol 90 mcg/actuation aero Inhale 2 Puffs as instructed every 4 hours as needed. 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 (more content not included)... Normal [facility] HISTORY PHYSICALon HISTORY PHYSICAL HNO ID: [id number] Author: TYREE BRIZUELA MD Service: Pain Management Author Type: Physician Type: H&P Filed: 02/06/2024 09:41 Note Text: PATIENT NAME: Marcie Loyola SERVICE DATE: 02/06/2024 PROCEDURE NOTE PREOPERATIVE DIAGNOSIS(ES) Lumbar DDD Lumbar spondylosis Lumbar disc displacement Lumbar radiculopathy POSTOPERATIVE DIAGNOSIS(ES): Same PROCEDURE: Left paramedian L4-5 interlaminar epidural steroid injection under fluoroscopy. ANESTHESIA: Conscious sedation with Versed 3 mg IV INDICATIONS: Marcie Loyola presents for lumbar epidural steroid injection. The patient denies any new pain complaints and denies any focal neurological deficits. The plan is to proceed with lumbar intralaminar epidural steroid injection. The risks and benefits discussed in the office were reviewed. The patient expressed understanding the risks and benefits and informed consent was obtained. OPERATIVE PROCEDURE: The patient was brought to the operating room. The patient was placed in the prone position with pressure points protected. Continuous hemodynamic monitoring was initiated including blood pressure, EKG, and pulse oximetry. Supplemental oxygen per nasal canula was started. The intravenous medication was administered incrementally to provide conscious sedation and to allow the patient to remain comfortable and conversant throughout the procedure. The lower back was prepped in sterile fashion. Upon AP projection under fluoroscopy, L4-5 level was identified. Entry point was marked and anesthetized with 5 ml of 0.5% Lidocaine. This was followed by insertion of an 18-gauge epidural Tuohy needle, which was inserted and advanced using a loss of resistance technique. Once the epidural space was encountered, aspiration was performed which was negative for blood or CSF. This was followed by injection of 0.2 ml of Omnipaque 300, which revealed a spread along the posterior epidural space. There was no evidence of intravascular or intrathecal flow. This was then followed by a total injection of 5 mL of 0.5% Xylocaine with 40 mg of Depomedrol. The patient tolerated the procedure well. The needle was removed intact. Dry dressing was placed over the injection site. The patient was taken to the recovery room in stable condition. EBL: nil Start time: 9:32 AM End time: 9:39 AM I was present during the entire time and personally performed the procedure. SIGNATURE: Tyree Brizuela MD DATE: February 06, 2024 TIME: 9:40 AM [facility] HISTORY PHYSICAL HNO ID: [id number] Author: TYREE BRIZUELA MD Service: Pain Management Author Type: Physician Type: H&P Filed: 02/06/2024 08:33 Note Text: HISTORY AND PHYSICAL EXAMINATION PATIENT NAME: Marcie Loyola DATE of SERVICE: 02/06/2024 Marcie Loyola is here for the pain mangement procedure. The patients presents with persistent pain complaints. Marcie Loyola denies any interval changes or new pain complaints or focal neurologic deficits. PAST MEDICAL HISTORY Diagnosis Date Anemia 2008 [...] off of both Ovaries TONSILLECTOMY PRIMARY/SECONDARY Tonsillectomy Social History Tobacco Use Smoking status: Never Smokeless tobacco: Never Substance Use Topics Alcohol use: No Drug use: Yes Frequency: 2.0 times per week Types: Marijuana FAMILY HISTORY Problem Relation Age of Onset Alcohol/Drug Mother Arthritis Mother Asthma Mother Emphysema Mother Diabetes Mother Hypertension Mother Psychiatry Mother BIPOLAR Stroke Mother Breast Cancer Maternal Grandmother Cancer Maternal Grandfather LUNG CANCER Arthritis Maternal Uncle Asthma Maternal Aunt X2 Hypertension Maternal Aunt Lipids Maternal Aunt Psychiatry Maternal Aunt BIPOLAR ALLERGIES Allergen Reactions Onion Anaphylaxis Tougaloo Oil Hives, Swelling, Itching Current Facility-Administered Medications Medication Dose Route Frequency NaCl 0.9% iv infusion 30 mL/hr INTRAVENOUS CONTINUOUS Physical Exam: Performed in conjunction with observation. The patient is alert and oriented x3. The patient is in no acute distress. Neck: Supple. The range of motion is intact. Lungs: clear CVR: RRR. Extremities: no reported edema or erythema. Examination indicates no changes Impression: Lumbar disc disorder Lumbar canal stenosis Plan: The informed consent has been obtained. The plan is to proceed with the procedure as planned. SIGNATURE: Tyree Brizuela MD DATE: February 06, 2024 TIME: 8:32 AM [facility] OPERATIVE NOon 02-06-2024 OPERATIVE NO HNO ID: [id number] Author: TYREE BRIZUELA MD Service: Pain Management Author Type: Physician Type: Operative Report Filed: 02/06/2024 09:41 Note Text: PATIENT NAME: Marcie Loyola SERVICE DATE: 02/06/2024 PROCEDURE NOTE PREOPERATIVE DIAGNOSIS(ES) Lumbar DDD Lumbar spondylosis Lumbar disc displacement Lumbar radiculopathy POSTOPERATIVE DIAGNOSIS(ES): Same PROCEDURE: Left paramedian L4-5 interlaminar epidural steroid injection under fluoroscopy. ANESTHESIA: Conscious sedation with Versed 3 mg IV INDICATIONS: Marcie Rivera Hussain presents for lumbar epidural steroid injection. The patient denies any new pain complaints and denies any focal neurological deficits. The plan is to proceed with lumbar intralaminar epidural steroid injection. The risks and benefits discussed in the office were reviewed. The patient expressed understanding the risks and benefits and informed consent was obtained. OPERATIVE PROCEDURE: The patient was brought to the operating room. The patient was placed in the prone position with pressure points protected. Continuous hemodynamic monitoring was initiated including blood pressure, EKG, and pulse oximetry. Supplemental oxygen per nasal canula was started. The intravenous medication was administered incrementally to provide conscious sedation and to allow the patient to remain comfortable and conversant throughout the procedure. The lower back was prepped in sterile fashion. Upon AP projection under fluoroscopy, L4-5 level was identified. Entry point was marked and anesthetized with 5 ml of 0.5% Lidocaine. This was followed by insertion of an 18-gauge epidural Tuohy needle, which was inserted and advanced using a loss of resistance technique. Once the epidural space was encountered, aspiration was performed which was negative for blood or CSF. This was followed by injection of 0.2 ml of Omnipaque 300, which revealed a spread along the posterior epidural space. There was no evidence of intravascular or intrathecal flow. This was then followed by a total injection of 5 mL of 0.5% Xylocaine with 40 mg of Depomedrol. The patient tolerated the procedure well. The needle was removed intact. Dry dressing was placed over the injection site. The patient was taken to the recovery room in stable condition. EBL: nil Start time: 9:32 AM End time: 9:39 AM I was present during the entire time and personally performed the procedure. SIGNATURE: Tyree Brizuela MD DATE: February 06, 2024 TIME: 9:41 AM [facility] Office Visit (PNMDNA ) MARCIE LOYOLA ([id number]) 1995 F [facility] Date Time Provider Department 01/22/24 1:30 PM TYREE BRIZUELA PNMDNA During your visit today, we recorded the following information about you: Tyree Brizuela MD 01/22/2024 3:00 PM Signed [facility] Pain Management Department Date: January 22, [...] warrants attention ALLERGIES Allergen Reactions Onion Anaphylaxis Tougaloo Oil Hives, Swelling, Itching Current Medications: Pain [...] once daily. For back pain, With food. losartan-hydroCHLOROthi azide (HYZAAR) 100-12.5 mg per tablet Take 1 [...] 1-2 tablets by mouth daily at bedtime. fluconaz (more content not included)... Normal [facility] 12-11-2023 [facility] Telephone (FAMWS) MARCIE LOYOLA ([id number]) 1995 F T Date Time Provider Department 12/11/23 XIANG RUIZ [facility] During your visit today, we recorded the following information about you: Xiang Ruiz DO 12/11/2023 10:32 PM Signed Please inform patient that her recent labs are showing improvements in her cholesterol, blood glucose as well as her inflammation markers. Her A1c is down to 6.4% and cholesterol is markedly improved DO Sydnie Santizo Linda M, LPN 2023 8:16 AM Signed Lft message to return call. Gracy Chan, FERNANDO 2023 2:20 PM Signed Pt returned call and given provider's message below with verbalized understanding. Allergies As of Date: 12/11/2023 Noted Allergy Reaction ONION 07/21/2013 10 - Anaphylaxis PINE OIL 07/21/2013 4 - Hives 7 - Swelling 9 - Itching Date Reviewed: 02/26/2023 Reviewed by: Laurie Ortega LPN - Fully Assessed Prescriptions as of 2023 - cyclobenzaprine (FLEXERIL) 10 mg tablet Take [...] to total 1500 mg at supper - dulaglutide (TRULICITY) 4.5 mg/0.5 mL pen injector Inject 4.5 mg subcutaneously one time a week. - ketoconazole (NIZORAL) 2 % cream Apply [...] 5, 7, and 9 - rizatriptan (MAXALT INTELLIGENCE OPERATIONS SPECIALIST) 5 mg disintegrating tablet Take 1 tablet by mouth as needed for migraine headache (see administration instructions). May repeat in 2 hours if needed - cyanocobalamin (VITAMIN B-12) 1,000 mcg tab Take 2 tablets by mouth once daily. - blood sugar diagnostic (BLOOD GLUCOSE TEST) test strip Test blood sugar(s) 2 times daily. Dx: Type 2 DM - Uncontrolled E11.65 Insulin: No - Lancets lancets Test blood sugar(s) 2 [...] 1 tablet by mouth once daily. - losartan (COZAAR) 100 mg tablet take 1 tablet by mouth once daily - COMPOUNDED PRESCRIPTION Order: BLOOD PRESSURE cuff Dx: essential hypertension - albuterol 90 mcg/actuation aero Inhale 2 Puffs as instructed every 4 hours as needed. 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 [facility] MARCIE LOYOLA ([id number]) 1995 F T Date Time Provider Department 12/09/23 XIANG RUIZ [facility] During your visit today, we recorded the following information about you: Keena Otoole LPN 12/09/2023 2:29 PM Signed Could you also please let the doctor know that when I picked up my prescriptions that I didn?t see the one for the cyclobenzaprine as we had agreed to putting me back on it to help my back and such and I wanted to know if there was a change to that or if she just forgot or something if you could send it over to the pharmacy if nothing has changed there I?d appreciate it or let me know if there?s an issue. Roxana Ocasio APRN.[facility] 12/11/2023 11:38 AM Signed The following approved medication requests have been transmitted electronically. Requested Prescriptions Signed Prescriptions Disp Refills cyclobenzaprine (FLEXERIL) 10 mg tablet 90 tablet 0 Sig: Take 1 tablet by mouth three times a day as needed for muscle spasm. Authorizing Provider: XIANG RUIZ Ordering User: ROXANA OCASIO APRN.CNP Rinal, Linda M, LPN 12/11/2023 12:42 PM Signed Pt was notified script was sent. Allergies As of Date: 12/09/2023 Noted Allergy Reaction ONION 07/21/2013 10 - Anaphylaxis PINE OIL 07/21/2013 4 - Hives 7 - Swelling 9 - Itching Date Reviewed: 02/26/2023 Reviewed by: Laurie Ortega LPN - Fully Assessed Reason for Visit: Patient Question [1477] Visit Diagnosis:Back muscle spasm [M62.830] Order(s):cyclobenzaprin e (FLEXERIL) 10 mg tabletTake 1 tablet by mouth three times a day as needed for muscle spasm.Disp: 90 tabletRfl: 0 Prescriptions as of 12/11/2023 - cyclobenzaprine (FLEXERIL) 10 mg tablet Take [...] to total 1500 mg at supper - dulaglutide (TRULICITY) 4.5 mg/0.5 mL pen injector Inject 4.5 mg subcutaneously one time a week. - ketoconazole (NIZORAL) 2 % cream Apply [...] 5, 7, and 9 - rizatriptan (MAXALT INTELLIGENCE OPERATIONS SPECIALIST) 5 mg disintegrating tablet Take 1 tablet by mouth as needed for migraine headache (see administration instructions). May repeat in 2 hours if needed - cyanocobalamin (VITAMIN B-12) 1,000 mcg tab Take 2 tablets by mouth once daily. - blood sugar diagnostic (BLOOD GLUCOSE TEST) test strip Test blood sugar(s) 2 times daily. Dx: Type 2 DM - Uncontrolled E11.65 Insulin: No - Lancets lancets Test blood sugar(s) 2 [...] 5,000 unit tab Take 1 tablet by patrick (more content not included)... Normal [facility] CRP SerPl-mCncon 12-09-2023 CRP [Mass/Vol] 2.4 mg/dL High <0.9 [facility] Comment on above: Order Comment: Speci men Type: BLOOD SPECIMENOrdering Facility: [facility] Address: [address] [place] [address] Performed By: #### 3 016-3, 47395-2, 1987-, 62060-3 ####[facility] LABCLIA [id number] [place] [id number] [place] Comprehensive metabolic 2000 panelon 12-09-2023 Albumin [Mass/Vol] 3.8 g/dL Low 3.9-4.9 [facility] Comment on above: Order Comment: Speci men Type: BLOOD SPECIMENOrdering Facility: [facility] Address: [address] [place] [address] Performed By: #### 3 016-3, 09026-5, ####[facility] LABCLIA [id number] [place] [address] [place] ALP [Catalytic activity/Vol] 87 U/L Normal 34-123 [facility] Comment on above: Order Comment: Speci men Type: BLOOD SPECIMENOrdering Facility: [facility] Address: [address] [place] [address] Performed By: #### 3 016-3, , ####[facility] LABCLIA [id number] [place] [address] [place] ALT [Catalytic activity/Vol] 14 U/L Normal 7-38 [facility] Comment on above: Order Comment: Speci men Type: BLOOD SPECIMENOrdering Facility: [facility] Address: [address] [place] [address] Performed By: #### 3 016-3, , ####[facility] LABCLIA [id number] [place] [id number] [place] Anion gap [Moles/Vol] 12 mmol/L Normal 9-18 [facility] Comment on above: Order Comment: Speci men Type: BLOOD SPECIMENOrdering Facility: [facility] Address: [address] [place] [address] Performed By: #### 3 016-3, , 1988-01, ####[facility] LABCLIA [id number] [place] [id number] [place] AST [Catalytic activity/Vol] 17 U/L Normal 13-35 [facility] Comment on above: Order Comment: Speci men Type: BLOOD SPECIMENOrdering Facility: [facility] Address: [address] [place] [address] Performed By: #### 3 016-3, , ####[facility] LABCLIA [id number] [place] [address] [place] Bilirubin [Mass/Vol] 0.4 mg/dL Normal 0.2-1.3 [facility] Comment on above: Order Comment: Speci men Type: BLOOD SPECIMENOrdering Facility: [facility] Address: [address] [place] [address] Performed By: #### 3 016-3, , ####[facility] LABCLIA [id number] [place] [address] [place] Calcium [Mass/Vol] 9.4 mg/dL Normal 8.5-10.2 [facility] Comment on above: Order Comment: Speci men Type: BLOOD SPECIMENOrdering Facility: [facility] Address: [address] [place] [address] Performed By: #### 3 016-3, , ####[facility] LABCLIA [id number] [place] [address] [place] Chloride [Moles/Vol] 99 mmol/L Normal 97-105 [facility] Comment on above: Order Comment: Speci men Type: BLOOD SPECIMENOrdering Facility: [facility] Address: [address] [place] [address] Performed By: #### 3 016-3, , ####[facility] LABCLIA [id number] [place] [id number] [place] CO2 [Moles/Vol] 24 mmol/L Normal 22-30 [facility] Comment on above: Order Comment: Speci men Type: BLOOD SPECIMENOrdering Facility: [facility] Address: [address] [place] [address] Performed By: #### 3 016-3, 98327-4, ####[facility] LABCLIA [id number] [place] [address] [place] Creatinine [Mass/Vol] 0.57 mg/dL Low 0.58-0.96 [facility] Comment on above: Order Comment: Speci men Type: BLOOD SPECIMENOrdering Facility: [facility] Address: [address] [place] [address] Performed By: #### 3 016-3, , ####[facility] LABIA [id number] [place] [address] [place] Creatinine and Glomerular filtration rate.predicted panel (S/P/Bld) 126 mL/min/1.73m??? Normal >=60 [facility] Comment on above: Order Comment: Astoni manolo Type: BLOOD SPECIMENOrdering Facility: [facility] Address: [address] [place] [address] Result Comment: Jessie mated Glomerular Filtration Rate [...] GFR. Performed By: #### 3 016-3, , ####[facility] LABCLIA [id number] [place] [address] [place] Glucose [Mass/Vol] 98 mg/dL Normal 74-99 [facility] Comment on above: Order Comment: Speci men Type: BLOOD SPECIMENOrdering Facility: [facility] Address: [address] [place] [address] Result Comment: The [place] Diabetes Association (ADA) provides guidance for cutoff [...] Standards of Medical Care in Diabetes 2016, [place] [employer] Association. Diabetes Care. 2016.39(Suppl 1). Performed By: #### 3 016-3, , ####[facility] LABCLIA [id number] [place] [address] [place] Potassium [Moles/Vol] 4.3 mmol/L Normal 3.7-5.1 [facility] Comment on above: Order Comment: Speci men Type: BLOOD SPECIMENOrdering Facility: [facility] Address: [address] [place] [address] Performed By: #### 3 016-, , ####[facility] LABCLIA [id number] [place] [id number] [place] Protein [Mass/Vol] 8.2 g/dL High 6.3-8.0 [facility] Comment on above: Order Comment: Speci men Type: BLOOD SPECIMENOrdering Facility: [facility] Address: [address] [place] [address] Performed By: #### 3 016-, , ####[facility] LABCLIA [id number] [place] [id number] [place] Sodium [Moles/Vol] 135 mmol/L Low 136-144 [facility] Comment on above: Order Comment: Speci men Type: BLOOD SPECIMENOrdering Facility: [facility] Address: [address] [place] [address] Performed By: #### 3 016-3, 46101-4, ####[facility] LABCLIA [id number] [place] [address] [place] Urea nitrogen [Mass/Vol] 12 mg/dL Normal 7-21 [facility] Comment on above: Order Comment: Astoni men Type: BLOOD SPECIMENOrdering Facility: [facility] Address: [address] [place] [address] Performed By: #### 3 016-3, 44669-7, 1988-01, ####[facility] LABIA [id number] [place] [address] [place] HbA1c (Bld)on 12-09-2023 Average glucose Estimated from glycated hemoglobin (Bld) [Mass/Vol] 137 mg/dL Normal [facility] Comment on above: Order Comment: Marry men Type: BLOOD SPECIMENOrdering Facility: [facility] Address: [address] [place] [address] Result Comment: eAG: (Estimated average glucose) is a calculated value from HgbA1c and is training representative of the average blood glucose level in the last 2-3 month period. Performed By: #### 5 5454-3 ####[facility] LABIA [id number] [place] [address] [place] HbA1c (Bld) [Mass fraction] 6.4 % High 4.3-5.6 [facility] Comment on above: Order Comment: Marry men Type: BLOOD SPECIMENOrdering Facility: [facility] Address: [address] [place] [address] Result Comment: Amer [place] Diabetes Association guidelines indicate that patients with HgbA1c in the range 5.7-6.4% are at increased risk for development of diabetes, and intervention by lifestyle modification may be beneficial. HgbA1c greater or equal to 6.5% is considered diagnostic of diabetes. Performed By: #### 5 5454-3 ####[facility] LABCLIA [id number] [place] [address] [place] Lipid 1996 panelon 4 Cholesterol [Mass/Vol] 179 mg/dL Normal <200 [facility] Comment on above: Order Comment: Astoni men Type: BLOOD SPECIMENOrdering Facility: [facility] Address: [address] [place] [address] Result Comment: <200 mg/dL, Desirable 200-239 mg/dL, Borderline high >239 mg/dL, High Performed By: #### 3 016-3, , 1988-01, ####[facility] LABCLIA [id number] [address] [place] Cholesterol in HDL [Mass/Vol] 41 mg/dL Normal >39 [facility] Comment on above: Order Comment: Marry french Type: BLOOD SPECIMENOrdering Facility: [facility] Address: [address] [place] [address] Result Comment: 40-5 9 mg/dL, Acceptable >59 mg/dL, High: Negative risk factor for coronary heart disease <40 mg/dL, Low: Positive risk factor for coronary heart disease Performed By: #### 3 016-3, , 1988-01, ####[facility] LABCLIA [id number] [address] [place] Cholesterol in LDL [Mass/Vol] 113 mg/dL High <100 [facility] Comment on above: Order Comment: Marry french Type: BLOOD SPECIMENOrdering Facility: [facility] Address: [address] [place] [address] Result Comment: <100 mg/dL, Optimal 100-129 mg/dL, Near optimal/above optimal 130-159 mg/dL, Borderline high 160-189 mg/dL, High >189 mg/dL, Very high Secondary prevention optimal LDL Cholesterol levels are recommended to be < 70 mg/dL Performed By: #### 3 016-3, 73763-6, ####[facility] LABIA [id number] [place] [address] [place] Cholesterol in LDL/Cholesterol in HDL [Mass ratio] 2.76 {ratio} High <2.54 [facility] Comment on above: Order Comment: Speci men Type: BLOOD SPECIMENOrdering Facility: [facility] Address: [address] [place] [address] Result Comment: Refe rence: 1. National Cholesterol Education Program ATP III Guideline At-A-Glance Quick Desk Reference: National Heart, Lung, and Blood [place]. National Institutes of Health. 2001: NIH Publication No. 01-3305. 2. An International Atherosclerosis Society position paper: global recommendations for the management of dyslipidemia: executive summary, Atherosclerosis. 2014: 232(2):410-413. Performed By: #### 3 016-3, , 1988-01, ####[facility] LABIA [id number] [place] [address] [place] Cholesterol in VLDL [Mass/Vol] 25 mg/dL Normal <30 [facility] Comment on above: Order Comment: Astoni men Type: BLOOD SPECIMENOrdering Facility: [facility] Address: [address] [place] [address] Performed By: #### 3 016-3, , ####[facility] LABIA [id number] [place] [address] [place] Cholesterol non HDL [Mass/Vol] 138 mg/dL High <130 [facility] Comment on above: Order Comment: Speci men Type: BLOOD SPECIMENOrdering Facility: [facility] Address: [address] [place] [address] Result Comment: <130 mg/dL, Optimal 130-159 mg/dL, Near optimal/above optimal 160-189 mg/dL, Borderline high 190-219 mg/dL, High >219 mg/dL, Very high Secondary prevention optimal non HDL Cholesterol levels are recommended to be <100 mg/dL Performed By: #### 3 016-3, , 1988-01, ####[facility] LABCLIA [id number] [place] [address] [place] Cholesterol.total/C holesterol in HDL [Mass ratio] 4.37 {ratio} Normal <5.10 [facility] Comment on above: Order Comment: Speci men Type: BLOOD SPECIMENOrdering Facility: [facility] Address: [address] [place] [address] Performed By: #### 3 016-3, , 1988-01, ####[facility] LABCLIA [id number] [place] [address] [place] FASTING TIME 12 hrs Normal [facility] Comment on above: Order Comment: Speci men Type: BLOOD SPECIMENOrdering Facility: [facility] Address: [address] [place] [address] Performed By: #### 3 016-3, , 1988-01, ####[facility] LABCLIA [id number] [place] [address] [place] Triglyceride [Mass/Vol] 124 mg/dL Normal <150 [facility] Comment on above: Order Comment: Speci men Type: BLOOD SPECIMENOrdering Facility: [facility] Address: [address] [place] [address] Result Comment: <150 mg/dL, Normal 150-199 mg/dL, Borderline high 200-499 mg/dL, High >499 mg/dL, Very high Performed By: #### 3 016-3, , 1988-01, ####[facility] LABCLIA [id number] [place] [id number] [place] TSH SerPl-aCncon 12-09-2023 TSH Qn 3.480 m[IU]/L Normal 0.270-4.200 [facility] Comment on above: Order Comment: Speci men Type: BLOOD SPECIMENOrdering Facility: [facility] Address: [address] [place] [address] Result Comment: If t he patient is , TSH reference range varies by gestational period: First Trimester (weeks 9-12): 0.180-2.990 mIU/L Second Trimester: 0.110-3.980 mIU/L Third Trimester: 0.480-4.710 mIU/L Hamilton Sanchez et al. A Practical Approach for the Verifications and Determination of Site- and Trimester-Specific Reference Intervals for Thyroid Function tests in . Thyroid, 2019:29:3:412-420. Gurpreet Serrano, et al. 2017 Guidelines of the [place] Thyroid Association for the Diagnosis and Management of Thyroid Disease during and the . Thyroid, 2017:27:3:315-389. Performed By: #### 3 016-3, 21684-1, 1987-, 36205-6 ####[facility] LABCLIA [id number] [place] [address] [place] Vit B12 [facility] -11-2 024 Cobalamin (Vitamin B12) [Mass/Vol] 281 pg/mL Normal 232-1245 [facility] Comment on above: Order Comment: Marry french Type: BLOOD SPECIMENOrdering Facility: [facility] Address: [address] [place] [address] Performed By: #### 2 132-9 ####[facility] LABCLIA [id number] [place] [address] [place] XR Knee - right 4 Viewson IMPRESSION: No radiographic evidence of acute osseous abnormality. Field Trainer: ATTILA Transcribe Date/Time: Jun 20 2022 3:10P Dictated by : GUANAKITO WINTERS MD This examination was interpreted and the report reviewed and electronically signed by: GUANAKITO WINTERS MD on Jun 20 2022 3:11PM [facility] DIVISION OF RADIOLOGY * * *Final Report* [...] Joint spaces preserved. DIVISION OF RADIOLOGY Provider, [facility] Delfino duran [place] - 06/20/2022 * * *Final Report* * [...] No radiographic evidence of acute osseous abnormality. Field [facility] Transcribe Date/Time: Jun 20 2022 3:10P Dictated by : GUANAKITO WINTERS MD This examination was interpreted and the report reviewed and electronically signed by: GUANAKITO WINTERS MD on Jun 20 2022 3:11PM EST [facility] Radiology Study observation (narrative) [facility] XR Knee - right 4 ViewsOrder ed By: Cc Provider on 06-20-2022 [facility] Progress Noteson 01-26-2021 Director Emergency Department Authentication Interface Message Text Pt's risk score is 63%. Problem: MARY ANNE Follow-Up Call where Pt indicated feeling a lost of interest in things and/or sad, hopeless, anxious, and empty. Assessment: Unable to reach Pt on 01/24/2021 and 01/25/2021. Plan: Unable to reach Pt. No further SW Interventions at this time. Jacques Loya, INFRASTRUCTURE SECURITY ARCHITECT, [employer] Outpatient for [facility]. ([phone]; [phone]). Normal [facility] [employer] [facility] Progress Noteson 01-24-2021 Director Emergency Department Authentication Interface Message Text ACUTE CARE SURGERY CLINIC NOTE Phone numbers Preferred Documentation: Mode: Telephone Patient Patient Work Phone: Patient Cell Preferred phone: [phone] Consent: I confirmed patient understanding of the [...] MD, FACS Acute Care Surgery Normal [facility] [employer] [facility] [employer] [facility] Director Emergency Department Authentication Interface Message Text ACUTE CARE SURGERY [...] in good condition on 01/15/2021. Normal [facility] BASIC METABOLIC PANELon 04- Anion gap [Moles/Vol] 15 mmol/L High 5-13 [facility] Comment on above: Performed By: #### Simi Ivey, MG #### [facility] [address] [place] [address], Calcium [Mass/Vol] 8.2 mg/dL Low 8.4-10.4 [facility] Comment on above: Performed By: #### Simi Lemus8, MG #### [facility] [address] [place] [address], Chloride [Moles/Vol] 98 mmol/L Normal 97-111 [facility] Comment on above: Performed By: #### Simi Ivey, MG #### [facility] [address] [place] [address], CO2 [Moles/Vol] 28 mmol/L Normal 21-30 [facility] Comment on above: Performed By: #### Simi Ivey, MG #### [facility] [address] [place] [address], Creatinine [Mass/Vol] 0.51 mg/dL Normal 0.50-1.10 [facility] Comment on above: Performed By: #### Simi Ivey, MG #### [facility] [address] [place] [address], ESTIMATED GFR (CKD-EPI) 132 mL/min/1.73sqm Normal >=60 The [facility] Comment on above: Performed By: #### Simi Ivey, MG #### [facility] [address] [place] [address], Glucose [Mass/Vol] 89 mg/dL Normal 68-110 [facility] Comment on above: Performed By: #### Simi Lemus8, MG #### [facility] [address] [place] [address], Potassium [Moles/Vol] 3.5 mmol/L Normal 3.3-5.3 [facility] Comment on above: Performed By: #### Simi Lemus8, MG #### [facility] [address] [place] [address], Sodium [Moles/Vol] 137 mmol/L Normal 135-148 [facility] Comment on above: Performed By: #### Simi Ivey, MG #### [facility] [address] [place], [place], Urea nitrogen [Mass/Vol] 3 mg/dL Low 8-22 [facility] Comment on above: Performed By: #### Simi Ivey, MG #### [facility] [address] [place], [place], CBC WITH DIFFERENTIALon 12-29 Basophils (Bld) [#/Vol] 0.18 10*3/uL Normal 0.00-0.20 [facility] Comment on above: Performed By: #### Simi SCHUSTERAT ####[facility] [id number] [place], [place], Basophils/100 WBC (Bld) 1.7 % Normal <=1.9 [facility] Comment on above: Performed By: #### Simi SCHUSTERAT ####S PATHOLOGY [id number] [place], [place], Eosinophils (Bld) [#/Vol] 0.16 10*3/uL Normal 0.00-0.70 [facility] Comment on above: Performed By: #### Simi SCHUSTERAT ####[facility] [id number] [place], Eosinophils/100 WBC (Bld) 1.5 % Normal 0.1-4.0 [facility] Comment on above: Performed By: #### Simi SCHUSTERAT ####[facility] [id number] [place], [place], Erythrocyte distribution width (RBC) [Ratio] 15.0 % High 11.5-14.5 [facility] Comment on above: Performed By: #### Simi SCHUSTERAT ####[facility] [id number] [place], [place], Hematocrit (Bld) [Volume fraction] 28.0 % Low 36.0-46.0 The [facility] Comment on above: Performed By: #### C BCDSAT ####[facility]OLOGY [id number] [place], Hemoglobin (Bld) [Mass/Vol] 9.4 g/dL Low 12.0-15.0 [facility] Comment on above: Performed By: #### C BCDSAT ####[facility] PATHOLOGY [id number] [place], Lymphocytes (Bld) [#/Vol] 2.15 10*3/uL Normal 1.00-4.80 [facility] Comment on above: Performed By: #### C BCDSAT ####[facility] PATHOLOGY [id number] [place], Lymphocytes/100 WBC (Bld) 20.1 % Low 24.0-44.0 [facility] Comment on above: Performed By: #### C BCDSAT ####[facility] PATHOLOGY [id number] [place], MCH (RBC) [Entitic mass] 27.2 pg Normal 26.0-34.0 The [facility] Comment on above: Performed By: #### C BCDSAT ####[facility] PATHOLOGY [id number] [place] [address], MCHC (RBC) [Mass/Vol] 33.5 g/dL Normal 32.0-35.9 [facility] Comment on above: Performed By: #### C BCDSAT ####[facility] PATHOLOGY [id number] [place], MCV (RBC) [Entitic vol] 81 fL Normal 80-100 [facility] Comment on above: Performed By: #### C BCDSAT ####[facility] PATHOLOGY [id number] [place], MONOCYTE DISTRIBUTION WIDTH 22 High <=20 The [facility] Comment on above: Performed By: #### C BCDSAT ####S PATHOLOGY [id number] [place] [address], Monocytes (Bld) [#/Vol] 0.81 10*3/uL Normal 0.20-1.00 The [facility] Comment on above: Performed By: #### C BCDSAT ####S PATHOLOGY [id number] [place], Monocytes/100 WBC (Bld) 7.6 % Normal 2.0-11.0 [facility] Comment on above: Performed By: #### C BCDSAT ####[facility] PATHOLOGY [id number] [place], Neutrophils (Bld) [#/Vol] 7.40 10*3/uL Normal 1.50-8.00 [facility] Comment on above: Performed By: #### C BCDSAT ####[facility] PATHOLOGY [id number] [place], Neutrophils/100 WBC (Bld) 69.2 % Normal 31.0-76.0 [facility] Comment on above: Performed By: #### C BCDSAT ####[facility] PATHOLOGY [id number] [place], Platelet mean volume (Bld) [Entitic vol] 7.3 fL Low 7.5-11.2 [facility] Comment on above: Performed By: #### C BCDSAT ####[facility] PATHOLOGY [id number] [place], [place], Platelets (Bld) [#/Vol] 462 10*3/uL High 150-400 The [facility] Comment on above: Performed By: #### C BCDSAT ####[facility] PATHOLOGY [id number] [place], [place], RBC (Bld) [#/Vol] 3.44 10*6/uL Low 4.00-5.20 The [facility] Comment on above: Performed By: #### C BCDSAT ####[facility] PATHOLOGY [id number] [place], [place], WBC (Bld) [#/Vol] 10.7 10*3/uL Normal 4.5-11.5 The [facility] Comment on above: Performed By: #### C BCDSAT ####[facility] [id number] [place], [place], Care Plan Noteon 01-15-2021 Director Emergency Department Authentication Interface Message Text Problem: Routine Care: [...] questions. Mable Martínez, MSN, CMSRN Normal [facility] Consultson 01-15-2021 Director Emergency Department Authentication Interface Message Text Physical Therapy attempt [...] PT). Barbie Portillo, PT, DPT Normal [facility] MAGNESIUMon 01-15-2021 Magnesium [Mass/Vol] 1.9 mg/dL Normal 1.6-2.8 [facility] Comment on above: Performed By: #### C H8, MG #### [facility] [address] [place] [address], Progress Noteson 01-15-2021 Director Emergency Department Authentication Interface Message Text NOCTURNAL PULSE OXIMETRY INTERPRETATION: Date of study: 01/14/2021 (previous night) Date of interpretation: 01/15/2021 TEST PARAMETERS: Setting: In-patient setting, during hospitalization for an acute illness Performed on: 2 Lpm O2 by SD RESULTS: Study interpretation is limited by presence of artifacts. No evidence of significant desaturations or sawtooth oscillations. Additional findings include the following: The average O2 saturation was 95.3%. The 3% oxygen desaturation index (LOLA 3% desaturations for events >= 10 seconds) was 9 per hour. RECOMMENDATIONS: With the current O2 therapy (2 Lpm by SD), patient was noted to have mildly elevated desaturation index. However, O2 supplementation will mask any findings of sleep disordered breathing on oximetry, and a full sleep evaluation is recommended. Dk Chaidez MD Division of Pulmonary, Critical Care and Sleep Medicine [facility] Normal The [facility] BASIC METABOLIC PANELon 04- Anion gap [Moles/Vol] 15 mmol/L High 5-13 The [facility] Comment on above: Performed By: #### C H8, MG #### [facility] [address] [place] [address], Calcium [Mass/Vol] 7.8 mg/dL Low 8.4-10.4 The [facility] Comment on above: Performed By: #### C H8, MG #### [facility] [address] [place] [address], Chloride [Moles/Vol] 99 mmol/L Normal 97-111 The [facility] Comment on above: Performed By: #### C H8, MG #### [facility] [address] [place] [address], CO2 [Moles/Vol] 26 mmol/L Normal 21-30 The [facility] Comment on above: Performed By: #### C H8, MG #### [facility] [address] [place] [address], Creatinine [Mass/Vol] 0.67 mg/dL Normal 0.50-1.10 The [facility] Comment on above: Performed By: #### Simi Ivey, MG #### S PATHOLOGY LABORATORY [address] [place] [address], ESTIMATED GFR (CKD-EPI) 121 mL/min/1.73sqm Normal >=60 The [facility] Comment on above: Performed By: #### Simi Ivey, MG #### [facility] [address] [place] [address], Glucose [Mass/Vol] 102 mg/dL Normal 68-110 The [facility] Comment on above: Performed By: #### Simi Ivey, MG #### [facility] [address] [place] [address], Potassium [Moles/Vol] 3.6 mmol/L Normal 3.3-5.3 The [facility] Comment on above: Performed By: #### Simi Ivey, MG #### S PATHOLOGY LABORATORY [address] [place] [address], Sodium [Moles/Vol] 136 mmol/L Normal 135-148 The [facility] Comment on above: Performed By: #### Simi Ivey, MG #### S PATHOLOGY LABORATORY [address] [place] [address], Urea nitrogen [Mass/Vol] 8 mg/dL Normal 8-22 The [facility] Comment on above: Performed By: #### Simi Ivey, MG #### S PATHOLOGY LABORATORY [address] [place] [address], CBC WITH DIFFERENTIALon 12-29 Basophils (Bld) [#/Vol] 0.06 10*3/uL Normal 0.00-0.20 [facility] Comment on above: Performed By: #### Simi Ivey, MG #### [facility] [address] [place] [address], Basophils/100 WBC (Bld) 0.6 % Normal <=1.9 The [facility] Comment on above: Performed By: ###Indu Ivey, MG #### [facility] [address] [place], [place], Eosinophils (Bld) [#/Vol] 0.31 10*3/uL Normal 0.00-0.70 [facility] Comment on above: Performed By: #### Simi H8, MG #### S PATHOLOGY LABORATORY [address] [place], [place], Eosinophils/100 WBC (Bld) 2.8 % Normal 0.1-4.0 [facility] Comment on above: Performed By: #### Simi H8, MG #### [facility] PATH[facility]OR[facility]ORY [address] [place] [address], Erythrocyte distribution width (RBC) [Ratio] 15.3 % High 11.5-14.5 [facility] Comment on above: Performed By: #### Simi H8, MG #### [facility] PATH[facility]OR[facility]ORY [address] [place] [address], Hematocrit (Bld) [Volume fraction] 28.5 % Low 36.0-46.0 The [facility] Comment on above: Performed By: #### Simi H8, MG #### [facility] PATH[facility]Y LABORATORY [address] [place], [place], Hemoglobin (Bld) [Mass/Vol] 9.5 g/dL Low 12.0-15.0 [facility] Comment on above: Performed By: #### Simi H8, MG #### [facility] PATH[facility]Y LABORATORY [address] [place], [place], Lymphocytes (Bld) [#/Vol] 1.98 10*3/uL Normal 1.00-4.80 [facility] Comment on above: Performed By: #### Simi H8, MG #### [facility] PATHOLOGY LABORATORY [address] [place], [place], Lymphocytes/100 WBC (Bld) 18.2 % Low 24.0-44.0 The [facility] Comment on above: Performed By: #### Simi H8, MG #### S PATHOLOGY LABORATORY [address] [place], [place], MCH (RBC) [Entitic mass] 27.3 pg Normal 26.0-34.0 The [facility] Comment on above: Performed By: #### C H8, MG #### [facility] [address] [place], [place], MCHC (RBC) [Mass/Vol] 33.3 g/dL Normal 32.0-35.9 [facility] Comment on above: Performed By: #### C H8, MG #### [facility] [address] [place], [place], MCV (RBC) [Entitic vol] 82 fL Normal 80-100 The [facility] Comment on above: Performed By: #### Simi H8, MG #### [facility] [address] [place], [place], MONOCYTE DISTRIBUTION WIDTH 24 High <=20 The [facility] Comment on above: Performed By: #### C H8, MG #### [facility] [address] [place], [place], Monocytes (Bld) [#/Vol] 0.72 10*3/uL Normal 0.20-1.00 [facility] Comment on above: Performed By: #### C H8, MG #### [facility] [address] [place], [place], Monocytes/100 WBC (Bld) 6.6 % Normal 2.0-11.0 [facility] Comment on above: Performed By: #### C H8, MG #### [facility] [address] [place], [place], Neutrophils (Bld) [#/Vol] 7.85 10*3/uL Normal 1.50-8.00 The [facility] Comment on above: Performed By: #### C H8, MG #### [facility] [address] [place], [place], Neutrophils/100 WBC (Bld) 71.9 % Normal 31.0-76.0 [facility] Comment on above: Performed By: #### C H8, MG #### [facility] [address] [place], [place], Platelet mean volume (Bld) [Entitic vol] 7.6 fL Normal 7.5-11.2 [facility] Comment on above: Performed By: #### C H8, MG #### [facility] [address] [place], [place], Platelets (Bld) [#/Vol] 473 10*3/uL High 150-400 [facility] Comment on above: Performed By: #### C H8, MG #### [facility] [address] [place], [place], RBC (Bld) [#/Vol] 3.48 10*6/uL Low 4.00-5.20 The [facility] Comment on above: Performed By: #### C H8, MG #### [facility] [address] [place], [place], WBC (Bld) [#/Vol] 10.9 10*3/uL Normal 4.5-11.5 [facility] Comment on above: Performed By: #### C H8, MG #### [facility] [address] [place], [place], Care Plan Noteon 01-14-2021 Director Emergency Department Authentication Interface Message Text Problem: Safety: Goal: [...] symptoms of infection Outcome: Progressing Normal [facility] Director Emergency Department Authentication Interface Message Text Problem: Routine Care: [...] symptoms of infection Outcome: Progressing Normal [facility] Consultson 01-14-2021 Director Emergency Department Authentication Interface Message Text Physical Therapy Attempted to see pt for PT late morning, pt politely declines d/t falling asleep. Pt is agreeable to PT this afternoon. Will re attempt if schedule allows. 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 Encouraged pt to ambulate w/ staff throughout the day to promote endurance and mobility. Will cont per BARB Fletcher PTA Normal [facility] MAGNESIUMon 01-14-2021 Magnesium [Mass/Vol] 2.1 mg/dL Normal 1.6-2.8 [facility] Comment on above: Performed By: #### C H8, MG #### [facility] [address] [place] [address], [id number] ANTI FXA-LMW HEPARINon 01-13 ANTI FXA-LMW HEPARIN ASSAY 0.14 IU/mL Normal The [facility] Comment on above: Order Comment: The r ecommended therapeutic range for treatment of thrombosis with Low Molecular Weight Heparin is 0.5 - 1.0 IU/mLThe recommended range for VTE prophylaxis with Low Molecular Weight Heparin is 0.2 - 0.4 IU/mL. Performed By: #### C H8, MG #### [facility] [address] [place] [address], BASIC METABOLIC PANELon 12-29 Anion gap [Moles/Vol] 14 mmol/L High 5-13 [facility] Comment on above: Performed By: #### Simi Ivey, MG #### [facility] [address] [place] [address], Calcium [Mass/Vol] 7.8 mg/dL Low 8.4-10.4 The [facility] Comment on above: Performed By: #### Simi Ivey, MG #### [facility] [address] [place] [address], Chloride [Moles/Vol] 97 mmol/L Normal 97-111 [facility] Comment on above: Performed By: #### Simi Ivey, MG #### [facility] [address] [place] [address], CO2 [Moles/Vol] 28 mmol/L Normal 21-30 The [facility] Comment on above: Performed By: #### Simi Ivey, MG #### [facility] [address] [place] [address], Creatinine [Mass/Vol] 0.67 mg/dL Normal 0.50-1.10 The [facility] Comment on above: Performed By: #### Simi Ivey, MG #### [facility] [address] [place] [address], ESTIMATED GFR (CKD-EPI) 121 mL/min/1.73sqm Normal >=60 The [facility] Comment on above: Performed By: #### Simi Ivey, MG #### [facility] [address] [place] [address], Glucose [Mass/Vol] 93 mg/dL Normal 68-110 The [facility] Comment on above: Performed By: #### Simi Lemus8, MG #### [facility] [address] [place] [address], Potassium [Moles/Vol] 3.3 mmol/L Normal 3.3-5.3 [facility] Comment on above: Performed By: #### Simi Ivey, MG #### [facility] [address] [place] [address], Sodium [Moles/Vol] 136 mmol/L Normal 135-148 The [facility] Comment on above: Performed By: ###Indu Ivey, MG #### S PATHOLOGY LABORATORY [address] [place] [address], Urea nitrogen [Mass/Vol] 8 mg/dL Normal 8-22 [facility] Comment on above: Performed By: #### Simi Ivey, MG #### S PATHOLOGY LABORATORY [address] [place] [address], CBC WITH DIFFERENTIALon 12-29 Basophils (Bld) [#/Vol] 0.04 10*3/uL Normal 0.00-0.20 [facility] Comment on above: Performed By: #### Simi Ivey, MG #### S PATHOLOGY LABORATORY [address] [place] [address], Basophils/100 WBC (Bld) 0.3 % Normal <=1.9 [facility] Comment on above: Performed By: #### Simi Ivey, MG #### S PATHOLOGY LABORATORY [address] [place] [address], Eosinophils (Bld) [#/Vol] 0.30 10*3/uL Normal 0.00-0.70 [facility] Comment on above: Performed By: ###Indu Ivey, MG #### S PATHOLOGY LABORATORY [address] [place] [address], Eosinophils/100 WBC (Bld) 2.8 % Normal 0.1-4.0 [facility] Comment on above: Performed By: ###Indu Belcher HBrody, MG #### S PATHOLOGY LABORATORY [address] [place] [address], Erythrocyte distribution width (RBC) [Ratio] 15.3 % High 11.5-14.5 [facility] Comment on above: Performed By: ###Indu Ivey, MG #### S PATHOLOGY LABORATORY [address] [place] [address], Hematocrit (Bld) [Volume fraction] 30.1 % Low 36.0-46.0 The [facility] Comment on above: Performed By: #### Simi Ivey, MG #### S PATHOLOGY LABORATORY [address] [place] [address], Hemoglobin (Bld) [Mass/Vol] 9.8 g/dL Low 12.0-15.0 [facility] Comment on above: Performed By: #### C H8, MG #### S PATHOLOGY LABORATORY [address] [place] [address], Lymphocytes (Bld) [#/Vol] 2.08 10*3/uL Normal 1.00-4.80 [facility] Comment on above: Performed By: #### C H8, MG #### [facility] [address] [place] [address], Lymphocytes/100 WBC (Bld) 19.7 % Low 24.0-44.0 [facility] Comment on above: Performed By: #### C H8, MG #### [facility] [address] [place] [address], MCH (RBC) [Entitic mass] 26.9 pg Normal 26.0-34.0 [facility] Comment on above: Performed By: #### C H8, MG #### [facility] [address] [place] [address], MCHC (RBC) [Mass/Vol] 32.7 g/dL Normal 32.0-35.9 [facility] Comment on above: Performed By: #### C H8, MG #### S PATHOLOGY LABORATORY [address] [place] [address], MCV (RBC) [Entitic vol] 82 fL Normal 80-100 [facility] Comment on above: Performed By: #### C H8, MG #### S PATHOLOGY LABORATORY [address] [place] [address], MONOCYTE DISTRIBUTION WIDTH 19 Normal <=20 The [facility] Comment on above: Performed By: #### C H8, MG #### S PATHOLOGY LABORATORY [address] [place] [address], Monocytes (Bld) [#/Vol] 0.73 10*3/uL Normal 0.20-1.00 The [facility] Comment on above: Performed By: #### C H8, MG #### [facility] [address] [place], [place], Monocytes/100 WBC (Bld) 6.9 % Normal 2.0-11.0 [facility] Comment on above: Performed By: #### C H8, MG #### [facility] [address] [place] [address], Neutrophils (Bld) [#/Vol] 7.42 10*3/uL Normal 1.50-8.00 [facility] Comment on above: Performed By: #### C H8, MG #### S PATHOLOGY LABORATORY [address] [place], [place], Neutrophils/100 WBC (Bld) 70.2 % Normal 31.0-76.0 [facility] Comment on above: Performed By: #### C H8, MG #### S PATHOLOGY LABORATORY [address] [place] [address], Platelet mean volume (Bld) [Entitic vol] 7.6 fL Normal 7.5-11.2 [facility] Comment on above: Performed By: #### C H8, MG #### S PATHOLOGY LABORATORY [address] [place] [address], Platelets (Bld) [#/Vol] 400 10*3/uL Normal 150-400 [facility] Comment on above: Performed By: #### C H8, MG #### S PATHOLOGY LABORATORY [address] [place], [place], RBC (Bld) [#/Vol] 3.66 10*6/uL Low 4.00-5.20 The [facility] Comment on above: Performed By: #### C H8, MG #### [facility] [address] [place], [place], WBC (Bld) [#/Vol] 10.6 10*3/uL Normal 4.5-11.5 [facility] Comment on above: Performed By: #### C H8, MG #### [facility] [address] [place] [address], Care Plan Noteon 01-13-2021 Director Emergency Department Authentication Interface Message Text Problem: Routine Care: [...] symptoms of infection Outcome: Progressing Normal [facility] MAGNESIUMon 01-13-2021 Magnesium [Mass/Vol] 2.0 mg/dL Normal 1.6-2.8 [facility] Comment on above: Performed By: #### Simi H8, MG #### [facility] [address] [place] [address], BASIC METABOLIC PANELon 12-29 Anion gap [Moles/Vol] 14 mmol/L High 5-13 [facility] Comment on above: Performed By: #### Simi H8, MG #### [facility] [address] [place] [address], Calcium [Mass/Vol] 8.1 mg/dL Low 8.4-10.4 The [facility] Comment on above: Performed By: #### C H8, MG #### [facility] [address] [place] [address], Chloride [Moles/Vol] 100 mmol/L Normal 97-111 [facility] Comment on above: Performed By: #### C H8, MG #### [facility] [address] [place] [address], CO2 [Moles/Vol] 28 mmol/L Normal 21-30 [facility] Comment on above: Performed By: #### C H8, MG #### [facility] [address] [place] [address], Creatinine [Mass/Vol] 0.68 mg/dL Normal 0.50-1.10 [facility] Comment on above: Performed By: #### Simi H8, MG #### [facility] [address] [place] [address], ESTIMATED GFR (CKD-EPI) 120 mL/min/1.73sqm Normal >=60 The [facility] Comment on above: Performed By: #### Simi H8, MG #### [facility] [address] [place] [address], Glucose [Mass/Vol] 91 mg/dL Normal 68-110 The [facility] Comment on above: Performed By: #### Simi Ivey, MG #### [facility] [address] [place] [address], Potassium [Moles/Vol] 3.9 mmol/L Normal 3.3-5.3 [facility] Comment on above: Performed By: #### Simi HBrody, MG #### S PATHOLOGY LABORATORY [address] [place] [address], Sodium [Moles/Vol] 138 mmol/L Normal 135-148 The [facility] Comment on above: Performed By: #### Simi H8, MG #### [facility] [address] [place] [address], Urea nitrogen [Mass/Vol] 6 mg/dL Low 8-22 [facility] Comment on above: Performed By: #### Simi H8, MG #### S PATHOLOGY LABORATORY [address] [place] [address], CBC WITH DIFFERENTIALon 12-29 Basophils (Bld) [#/Vol] 0.05 10*3/uL Normal 0.00-0.20 [facility] Comment on above: Performed By: #### Simi H8, MG #### [facility] [address] [place] [address], Basophils/100 WBC (Bld) 0.4 % Normal <=1.9 [facility] Comment on above: Performed By: #### C H8, MG #### S PATHOLOGY LABORATORY [address] [place] [address], Eosinophils (Bld) [#/Vol] 0.20 10*3/uL Normal 0.00-0.70 [facility] Comment on above: Performed By: #### C H8, MG #### S PATHOLOGY LABORATORY [address] [place] [address], Eosinophils/100 WBC (Bld) 1.4 % Normal 0.1-4.0 [facility] Comment on above: Performed By: #### C H8, MG #### [facility] [address] [place] [address], Erythrocyte distribution width (RBC) [Ratio] 15.2 % High 11.5-14.5 [facility] Comment on above: Performed By: #### Simi H8, MG #### [facility] [address] [place] [address], Hematocrit (Bld) [Volume fraction] 33.5 % Low 36.0-46.0 The [facility] Comment on above: Performed By: #### Simi H8, MG #### [facility] [address] [place] [address], Hemoglobin (Bld) [Mass/Vol] 10.9 g/dL Low 12.0-15.0 [facility] Comment on above: Performed By: #### C H8, MG #### S PATHOLOGY LABORATORY [address] [place] [address], Lymphocytes (Bld) [#/Vol] 2.22 10*3/uL Normal 1.00-4.80 [facility] Comment on above: Performed By: #### C H8, MG #### S PATHOLOGY LABORATORY [address] [place] [address], Lymphocytes/100 WBC (Bld) 16.1 % Low 24.0-44.0 [facility] Comment on above: Performed By: #### C H8, MG #### S PATHOLOGY LABORATORY [address] [place] [address], MCH (RBC) [Entitic mass] 26.9 pg Normal 26.0-34.0 [facility] Comment on above: Performed By: #### Simi Lemus8, MG #### S PATHOLOGY LABORATORY [address] [place] [address], MCHC (RBC) [Mass/Vol] 32.6 g/dL Normal 32.0-35.9 [facility] Comment on above: Performed By: #### Simi Ivey, MG #### S PATHOLOGY LABORATORY [address] [place] [address], MCV (RBC) [Entitic vol] 83 fL Normal 80-100 [facility] Comment on above: Performed By: #### Simi Ivey, MG #### S PATHOLOGY LABORATORY [address] [place] [address], MONOCYTE DISTRIBUTION WIDTH 23 High <=20 The [facility] Comment on above: Performed By: #### Simi Ivey, MG #### S PATHOLOGY LABORATORY [address] [place] [address], Monocytes (Bld) [#/Vol] 1.13 10*3/uL High 0.20-1.00 [facility] Comment on above: Performed By: #### Simi Ivey, MG #### S PATHOLOGY LABORATORY [address] [place] [address], Monocytes/100 WBC (Bld) 8.2 % Normal 2.0-11.0 [facility] Comment on above: Performed By: #### Simi Ivey, MG #### S PATHOLOGY LABORATORY [address] [place] [address], Neutrophils (Bld) [#/Vol] 10.18 10*3/uL High 1.50-8.00 [facility] Comment on above: Performed By: #### Simi H8, MG #### S PATHOLOGY LABORATORY [address] [place] [address], Neutrophils/100 WBC (Bld) 73.9 % Normal 31.0-76.0 [facility] Comment on above: Performed By: #### Simi Lemus8, MG #### S PATHOLOGY LABORATORY [address] [place] [address], Platelet mean volume (Bld) [Entitic vol] 7.5 fL Normal 7.5-11.2 [facility] Comment on above: Performed By: #### C H8, MG #### S PATHOLOGY LABORATORY [address] [place], [place], Platelets (Bld) [#/Vol] 466 10*3/uL High 150-400 [facility] Comment on above: Performed By: #### C H8, MG #### [facility] [address] [place], [place], RBC (Bld) [#/Vol] 4.06 10*6/uL Normal 4.00-5.20 [facility] [employer] Comment on above: Performed By: #### C H8, MG #### [facility] [address] [place], [place], WBC (Bld) [#/Vol] 13.8 10*3/uL High 4.5-11.5 [facility] Comment on above: Performed By: #### C H8, MG #### S PATHOLOGY LABORATORY [address] [place], [place], Care Plan Noteon 01-12-2021 Director Emergency Department Authentication Interface Message Text Problem: Routine Care: [...] symptoms of infection Outcome: Progressing Normal [facility] MAGNESIUMon 01-12-2021 Magnesium [Mass/Vol] 2.0 mg/dL Normal 1.6-2.8 [facility] Comment on above: Performed By: #### MG Cheyenne #### [facility] [address] [place], [place], Addendum Noteon 01-11-2021 Director Emergency Department Authentication Interface Message Text Addendum created 01/11/21 1502 by Desean Hernandez MD Clinical Note Signed Normal [facility] Anesthesia Postprocedure Kathy byrneson 01-11-2021 Director Emergency Department Authentication Interface Message Text Anesthesia Postoperative Assessment: [...] ANESTHESIA COMPLICATIONS: No complications documented. Normal [facility] BASIC METABOLIC PANELon 12-29 Anion gap [Moles/Vol] 16 mmol/L High 5-13 [facility] Comment on above: Performed By: #### PARVEZ BARRIOS ####[facility] PATHOLOGY [id number] [place], [place], Calcium [Mass/Vol] 7.7 mg/dL Low 8.4-10.4 The [facility] Comment on above: Performed By: #### Allan CÁRDENAS CH8 ####M[facility] PATHOLOGY [id number] [place], [place], Chloride [Moles/Vol] 101 mmol/L Normal 97-111 The [facility] Comment on above: Performed By: #### Allan CÁRDENAS CH8 ####S PATHOLOGY [id number] [place], CO2 [Moles/Vol] 23 mmol/L Normal 21-30 The [facility] Comment on above: Performed By: #### Allan CÁRDENAS, VSAQUEZ8 ####MHS PATHOLOGY [id number] [place], [place], Creatinine [Mass/Vol] 0.77 mg/dL Normal 0.50-1.10 [facility] Comment on above: Performed By: #### Allan CÁRDENAS CH8 ####S PATHOLOGY [id number] [place], [place], ESTIMATED GFR (CKD-EPI) 106 mL/min/1.73sqm Normal >=60 The [facility] Comment on above: Performed By: #### Allan CÁRDENAS CH8 ####S PATHOLOGY [id number] [place], Glucose [Mass/Vol] 123 mg/dL High 68-110 The [facility] Comment on above: Performed By: #### Allan CÁRDENAS CH8 ####S PATHOLOGY [id number] [place], [place], Potassium [Moles/Vol] 3.5 mmol/L Normal 3.3-5.3 [facility] Comment on above: Performed By: #### Allan CÁRDENAS CH8 ####S PATHOLOGY GAKNOIFBWQ8267 [place], Sodium [Moles/Vol] 136 mmol/L Normal 135-148 The [facility] Comment on above: Performed By: #### Allan CÁRDENAS CH8 ####MHS PATHOLOGY [id number] [place], Urea nitrogen [Mass/Vol] 8 mg/dL Normal 8-22 [facility] Comment on above: Performed By: #### Allan CÁRDENAS CH8 ####MHS PATHOLOGY [id number] [place], [place], COMPLETE BLOOD COUNTon 01-11 Erythrocyte distribution width (RBC) [Ratio] 15.2 % High 11.5-14.5 [facility] Comment on above: Performed By: #### C BC #### [facility] PATHOLOGY LABORATORY [address] [place] [address], Hematocrit (Bld) [Volume fraction] 35.6 % Low 36.0-46.0 [facility] Comment on above: Performed By: #### C BC #### [facility] PATHOLOGY LABORATORY [address] [place] [address], Hemoglobin (Bld) [Mass/Vol] 11.4 g/dL Low 12.0-15.0 [facility] Comment on above: Performed By: #### C BC #### [facility] PATHOLOGY LABORATORY [address] [place] [address], MCH (RBC) [Entitic mass] 26.4 pg Normal 26.0-34.0 [facility] Comment on above: Performed By: #### C BC #### [facility] PATHOLOGY LABORATORY [address] [place] [address], MCHC (RBC) [Mass/Vol] 32.1 g/dL Normal 32.0-35.9 The [facility] Comment on above: Performed By: #### C BC #### [facility] PATHOLOGY LABORATORY [address] [place] [address], MCV (RBC) [Entitic vol] 82 fL Normal 80-100 [facility] Comment on above: Performed By: #### C BC #### [facility] PATHOLOGY LABORATORY [address] [place] [address], Platelet mean volume (Bld) [Entitic vol] 7.5 fL Normal 7.5-11.2 The [facility] Comment on above: Performed By: #### C BC #### [facility] PATHOLOGY LABORATORY [address] [place] [address], Platelets (Bld) [#/Vol] 442 10*3/uL High 150-400 [facility] Comment on above: Performed By: #### C BC #### [facility] PATHOLOGY LABORATORY [address] [place] [address], RBC (Bld) [#/Vol] 4.33 10*6/uL Normal 4.00-5.20 [facility] Comment on above: Performed By: #### C BC #### [facility] [address] [place] [address], WBC (Bld) [#/Vol] 17.1 10*3/uL High 4.5-11.5 [facility] Comment on above: Performed By: #### C BC #### [facility] [address] [place], [place], Care Plan Noteon 01-11-2021 Director Emergency Department Authentication Interface Message Text Problem: Routine Care: [...] symptoms of infection Outcome: Progressing Normal [facility] Director Emergency Department Authentication Interface Message Text Problem: Routine Care: [...] symptoms of infection Outcome: Progressing Normal The [facility] HEPATIC FUNCTION PANELon Albumin [Mass/Vol] 2.2 g/dL Low 3.4-5.1 The [facility] Comment on above: Performed By: #### Allan CÁRDENAS CH8 ####S PATHOLOGY [id number] [place], [place], ALK 86 IU/L Normal 50-190 The [facility] Comment on above: Performed By: #### PARVEZ BARRIOS ####S PATHOLOGY [id number] [place], [place], ALT [Catalytic activity/Vol] 34 U/L Normal 7-40 The [facility] Comment on above: Performed By: #### PARVEZ BARRIOS ####S PATHOLOGY [address]FQOBY[address] [place] [address], AST [Catalytic activity/Vol] 70 U/L High 7-40 The [facility] Comment on above: Performed By: #### PARVEZ BARRIOS ####S PATHOLOGY [id number] [place] [address], Bilirubin [Mass/Vol] 1.2 mg/dL Normal 0.1-1.5 The [facility] Comment on above: Performed By: #### PARVEZ BARRIOS ####S PATHOLOGY [id number] [place] [address], Bilirubin.direct [Mass/Vol] 0.30 mg/dL Normal 0.10-0.30 The [facility] Comment on above: Performed By: #### PARVEZ BARRIOS ####S PATHOLOGY DNIWLYTPLP[address] [place] [address], Protein [Mass/Vol] 5.9 g/dL Low 6.2-8.3 The [facility] Comment on above: Performed By: #### PARVEZ BARRIOS ####S PATHOLOGY [id number] [place], [place], PARTIAL THROMBOPLASTIN TIMEo n 01-11-2021 aPTT Coag (Bld) [Time] 38 s High 25-37 The [facility] Comment on above: Performed By: #### A PTT, PT #### S PATHOLOGY LABORATORY [address] [place], [place], PROTHROMBIN TIME AND INRon 0 01-11-2021 INR Coag (PPP) [Relative time] 1.56 {INR} High 0.90-1.10 [facility] Comment on above: Performed By: #### A PTT, PT #### S PATHOLOGY LABORATORY [address] [place], [place], PT Coag (PPP) [Time] 17.6 s High 9.7-12.9 [facility] Comment on above: Performed By: #### A PTT, PT #### S PATHOLOGY LABORATORY [address] [place], [place], Progress Noteson 01-11-2021 Director Emergency Department Authentication Interface Message Text Post-op check note S: No acute events since surgery. Pt has tolerated clears without nausea and vomiting. Pain is no longer the same as prior to surgery. RUQ pain is replaced with incisional pain. She is breathing well. She denies chest pain. Not having any gas from below yet. O: Vitals Recorded in This Encounter 01/10/2021 1915 01/10/2021 1949 01/10/2021202201/10/2021205201/10/20212199 BP: 136/80 -- -- -- 143/83 Pulse: 107 -- -- -- 111 Resp: 20 -- -- -- 18 Temp: 99.7 ???F (37.6 ???C) -- -- -- 99.4 ???F (37.4 ???C) Temp src: Oral -- -- -- Oral SpO2: 93 % -- -- -- 97 % Pain Score: 7 8 8 5 -- Intake/Output Summary (Last 24 hours) at 01/10/20212250 Last data filed at 01/10/20212199 Gross per 24 hour Intake 2583.33 ml [...] General Surgery Resident Acute Care Surgery Pager [phone], Weekdays 6a-6p [place] Pager [phone], Weekdays 6p-6a, weekends Normal The [facility] ABO RH TYPEon 01-10-2021 ABO and Rh group Nom (Bld) Blood group B Rh(D) positive Normal The [facility] Comment on above: Performed By: #### C H8, MG #### [facility] [address] [place] [address], [id number] AEROBIC WOUND CULTUREon 12-29 AEROBIC WOUND CULTURE C PYOG: Positive Culture Report ENTEROCOCCUS FAECIUM 2+ Enterococcus faecium GRAM STAIN: 3+ Polymorphonuclear Leukocytes 1+ Squamous Epithelial Cells 2+ Gram Positive Cocci Normal The [facility] [facility] Comment on above: Order Comment: THIS IS A PRELIMINARY REPORT. Final results will follow. Results of the preliminary report may be modified as additional information becomes available. Performed By: #### C PYOG ####[facility] [address]qvqpcpji[address] [place], [place] LARISA ___ ORGANISM: ENTEROCOCCUS FAECIUM ANTIBIOTIC LARISA SENSITIVITY Ampicillin <= 2 S Linezolid 2 S Vancomycin <= 0.5 S Doxycycline <= 0.5 S Tetracycline <= 1 S Normal The [facility] Comment on above: Order Comment: THIS IS A PRELIMINARY REPORT. Final results will follow. Results of the preliminary report may be modified as additional information becomes available. Performed By: #### C PYOG ####[facility] [address] [place], [place] ANAEROBIC CULTURE, MISCon ANAEROBIC CULTURE, MISC C ANRBC: No Anaerobes isolated Normal The [facility] Comment on above: Performed By: #### C H8, #### [facility] [address] [place], [address] Anesthesia Arrivalon 021 Director Emergency Department Authentication Interface Message Text Patient taken to [...] CAA; Suzan Ramirez CAA; Tip Whitaker CAA Staff Interpreter: Desean Shepherd MD CHOLECYSTECTOMY, LAPAROSCOPIC, Possible Open [...] 01/10/21 0930 Site Assessment WNL;Dressing intact 01/10/21 1255 Infusion Status Port #1 Infusing 01/10/21 1255 Peripheral IV Access: 01/10/21 1315 18 gauge Left Hand (Active) Site Assessment WNL;Dressing intact 01/10/21 131 Infusion Status Port #1 Infusing 01/10/21 1315 Airway Insertion Details [REMOVED] Advanced Airway: ETT, Oral;Cuffed #7 (Removed) 01/10/21 131 Pre-Oxygenation/ Induction: Mask Rapid Sequence Induction?: Mask [...] 01/10/21 131 Advanced Airway Tube Position Right 01/10/21 131 Location (cm) 22 01/10/21 131 Measured from: Lips 01/10/211310 Secured via: Taped 01/10/211310 Site Assessment WNL [...] of the report was received. LANDRY Thibodeaux [facility] Anesthesia Attestationon Director Emergency Department Authentication Interface Message Text Anesthesia Attestation ATTESTATION OF INFORMED CONSENT FOR ANESTHESIA Anesthesia options were discussed with the patient and/or legal training representative. The risks, benefits and alternatives were reviewed. Questions regarding anesthesia were answered. Patient and/or legal training representative knows such anesthetics and procedures may be performed by Resident physicians, Certified Anesthesiologist Assistants, or Certified Nurse Anesthetists under the supervision of a physician. The patient /or the patient's legal training representative agree with the plan for anesthesia. R/b dw pt/mother. Understands at higher risk due to med issues. Wishes to proceed. Normal [facility] Anesthesia Postprocedure Kathy luationon 01-10-2021 Director Emergency Department Authentication Interface Message Text Anesthesia Postoperative Assessment: [...] ANESTHESIA COMPLICATIONS: No complications documented. 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 Normal [facility] BASIC METABOLIC PANELon - Anion gap [Moles/Vol] 14 mmol/L High 5-13 [facility] Comment on above: Performed By: #### C H8 #### S PATHOLOGY LABORATORY [address] [place] [address], Calcium [Mass/Vol] 8.1 mg/dL Low 8.4-10.4 The [facility] Comment on above: Performed By: #### C H8 #### S PATHOLOGY LABORATORY [address] [place] [address], Chloride [Moles/Vol] 97 mmol/L Normal 97-111 [facility] Comment on above: Performed By: #### C H8 #### S PATHOLOGY LABORATORY [address] [place] [address], CO2 [Moles/Vol] 24 mmol/L Normal 21-30 The [facility] Comment on above: Performed By: #### C H8 #### S PATHOLOGY LABORATORY [address] [place] [address], Creatinine [Mass/Vol] 0.64 mg/dL Normal 0.50-1.10 [facility] Comment on above: Performed By: #### C H8 #### S PATHOLOGY LABORATORY [address] [place] [address], ESTIMATED GFR (CKD-EPI) 123 mL/min/1.73sqm Normal >=60 The [facility] Comment on above: Performed By: #### C H8 #### S PATHOLOGY LABORATORY [address] [place] [address], [place], Glucose [Mass/Vol] 112 mg/dL High 68-110 [facility] Comment on above: Performed By: #### C H8 #### S PATHOLOGY LABORATORY [address] [place], [place], Potassium [Moles/Vol] 3.8 mmol/L Normal 3.3-5.3 The [facility] Comment on above: Result Comment: Hemo lysis present Performed By: #### C H8 #### S PATHOLOGY LABORATORY [address] [place], [place], Sodium [Moles/Vol] 131 mmol/L Low 135-148 [facility] Comment on above: Performed By: #### C H8 #### S PATHOLOGY LABORATORY [address] [place] [address], Urea nitrogen [Mass/Vol] 7 mg/dL Low 8-22 [facility] Comment on above: Performed By: #### C H8 #### [facility] PATHOLOGY LABORATORY [address] [place] [address], Blood Attestationon 01-11-20 Director Emergency Department Authentication Interface Message Text Blood Attestation ATTESTATION OF INFORMED CONSENT FOR BLOOD The transfusion of blood and/or blood components were discussed with the patient and/or legal training representative. The risks, benefits and alternatives were reviewed. Questions regarding blood transfusions were answered. The patient /or the patient's legal training representative agree with the plan for transfusion of blood and/or blood components. Normal The [facility] Brief Operative Noteon 01-10 Director Emergency Department Authentication Interface Message Text Brief Operative Note MAIN OR 09 Marcie Loyola 25 year old female Surgical Contact Serial Number: [id number] Preoperative Diagnosis: Cholecystitis [K81.9] Postoperative Diagnosis: * Cholecystitis [K81.9] Acute Suppurative Cholecystitis Procedures: Laparoscopic Cholecystectomy Surgeon(s): Surgeon(s): Faraz Maravilla MD Staff: Scrub: Shelli Lao; Lisa Becker RN; Mya Snyder RN Bench Hand Nurse: Erin Hobbs RN; Maya Acuna RN Skip Tender: Gurpreet Villarreal MD; Gabrielle Little MD Anesthesia: General Anesthesiologist: Colton Adams MD; Lalo Owusu MD; Gustavo Anthony MD CAA: Bhanu Cutler CAA; Suzan Ramirez CAA; Tip Whitaker CAA Staff Interpreter: Desean Shepherd MD Specimen(s): ID Type Source [...] [id number] Infusion Status Port #1 Infusing;Patent 01/10/21 171 Peripheral IV Access: 01/10/21 1315 18 gauge [...] Erazo MD 01/10/2021 5:31 PM Normal [facility] CBC WITH DIFFERENTIALon 12-29 Basophils (Bld) [#/Vol] 0.08 10*3/uL Normal 0.00-0.20 [facility] Comment on above: Performed By: #### C H8, MG #### [facility] [address] [place] [address], Basophils/100 WBC (Bld) 0.4 % Normal <=1.9 The [facility] Comment on above: Performed By: #### Simi H8, MG #### S PATHOLOGY LABORATORY [address] [place] [address], Eosinophils (Bld) [#/Vol] 0.06 10*3/uL Normal 0.00-0.70 [facility] Comment on above: Performed By: #### Simi H8, MG #### S PATHOLOGY LABORATORY [address] [place] [address], Eosinophils/100 WBC (Bld) 0.3 % Normal 0.1-4.0 [facility] Comment on above: Performed By: #### Simi HBrody, MG #### S PATHOLOGY LABORATORY [address] [place] [address], Erythrocyte distribution width (RBC) [Ratio] 15.5 % High 11.5-14.5 [facility] Comment on above: Performed By: #### Simi HBrody, MG #### S PATHOLOGY LABORATORY [address] [place] [address], Hematocrit (Bld) [Volume fraction] 36.5 % Normal 36.0-46.0 [facility] Comment on above: Performed By: #### Simi H8, MG #### S PATHOLOGY LABORATORY [address] [place] [address], Hemoglobin (Bld) [Mass/Vol] 11.8 g/dL Low 12.0-15.0 [facility] Comment on above: Performed By: #### Simi H8, MG #### S PATHOLOGY LABORATORY [address] [place] [address], Lymphocytes (Bld) [#/Vol] 2.30 10*3/uL Normal 1.00-4.80 [facility] Comment on above: Performed By: #### Simi H8, MG #### S PATHOLOGY LABORATORY [address] [place] [address], Lymphocytes/100 WBC (Bld) 12.2 % Low 24.0-44.0 [facility] Comment on above: Performed By: #### C H8, MG #### S PATHOLOGY LABORATORY [address] [place] [address], MCH (RBC) [Entitic mass] 26.5 pg Normal 26.0-34.0 [facility] Comment on above: Performed By: #### Simi Ivey, MG #### S PATHOLOGY LABORATORY [address] [place], [place], MCHC (RBC) [Mass/Vol] 32.4 g/dL Normal 32.0-35.9 [facility] Comment on above: Performed By: #### Simi Ivey, MG #### S PATHOLOGY LABORATORY [address] [place], [place], MCV (RBC) [Entitic vol] 82 fL Normal 80-100 [facility] Comment on above: Performed By: #### Simi Ivey, MG #### [facility] PATHOLOGY LABORATORY [address] [place] [address], MONOCYTE DISTRIBUTION WIDTH 29 High <=20 The [facility] Comment on above: Performed By: #### Simi Ivey, MG #### [facility] PATHOLOGY LABORATORY [address] [place] [address], Monocytes (Bld) [#/Vol] 1.37 10*3/uL High 0.20-1.00 [facility] Comment on above: Performed By: #### Simi Ivey, MG #### [facility] PATHOLOGY LABORATORY [address] [place], [place], Monocytes/100 WBC (Bld) 7.3 % Normal 2.0-11.0 [facility] Comment on above: Performed By: #### Simi Ivey, MG #### S PATHOLOGY LABORATORY [address] [place] [address], Neutrophils (Bld) [#/Vol] 14.99 10*3/uL High 1.50-8.00 [facility] Comment on above: Performed By: #### Simi HBrody, MG #### S PATHOLOGY LABORATORY [address] [place], [place], Neutrophils/100 WBC (Bld) 79.7 % High 31.0-76.0 [facility] Comment on above: Performed By: #### Simi Ivey, MG #### S PATHOLOGY LABORATORY [address] [place], [place], Platelet mean volume (Bld) [Entitic vol] 7.8 fL Normal 7.5-11.2 [facility] Comment on above: Performed By: #### C H8, MG #### S PATHOLOGY LABORATORY [address] [place], [place], Platelets (Bld) [#/Vol] 450 10*3/uL High 150-400 [facility] Comment on above: Performed By: #### C H8, MG #### S PATHOLOGY LABORATORY [address] [place], [place], RBC (Bld) [#/Vol] 4.45 10*6/uL Normal 4.00-5.20 [facility] Comment on above: Performed By: #### C H8, MG #### S PATHOLOGY LABORATORY [address] [place], [place], WBC (Bld) [#/Vol] 18.8 10*3/uL High 4.5-11.5 [facility] Comment on above: Performed By: #### C H8, MG #### [facility] PATHOLOGY LABORATORY [address] [place], [place], CT ABD/PELVIS ED I/V SAL W / [...] per 1 lb. INTRA-PROCEDURE MEDS: Contrast Agent [id number] 100ml Bottle 100 milliliter 01/10/2021 INTRAVENOUS FINDINGS: [...] and agree with the findings. Normal [facility] Care Plan Noteon 01-10-2021 Director Emergency Department Authentication Interface Message Text Problem: Acute Pain: [...] symptoms of infection Outcome: Progressing Normal [facility] Consultson 01-10-2021 Director Emergency Department Authentication Interface Message Text Surgery H AND [...] her morbid obesity, she was transferred to [facility] for further evaluation. PMH: asthma, PCOS, back pain, obesity PSH: laparoscopic bilateral cystectomy and right salpingectomy Social History Tobacco Use Smoking status: Not on file Substance Use Topics Alcohol use: Not on file Drug use: Not on file FMH: -Patient denies history of medical disease in family. Allergies Allergen Reactions Onion Swelling Other (Review Comments!) Swelling Tougaloo cones and needles No current facility-administered medications [...] Dr Jones --- Alberto Luu MD PGY2 [facility] Surgery Pager -[phone], Weekdays 6a-6p [place] Pager -[phone], Weekdays 6p-6a, weekends Teaching Physician Note: I saw and [...] sharp pain in her RUQ. Went to [facility] ED where RUQ ultrasound revealed cholelithiasis and GB wall thickening. Transferred to [facility] for further w/u and management. CT scan obtained at [facility] reveals acute cholecystitis. Will admit and plan for lap linda in a.m. Omar Jones MD Division of Trauma, Critical Care, [place], and Emergency General Surgery Department of Surgery [facility] geology associate [facility] [employer] Normal The [facility] ED Noteson 01-10-2021 Director Emergency Department Authentication Interface Message Text Transition of Care; Hand off Note Code Status: AGE: [age] year old SEX: female WEIGHT: no weight Chief Complaint Patient presents with * Cholecystitis/cholelith iasis [facility] Admitting Diagnosis: cholecystitis TACHYCARDIA ABDOMINAL PAIN O2 requirement: yes, continuous; 2 Lpm by NC IV access: Peripheral IV Access: 01/10/21 0559 20 gauge Left Antecubital (Active) Peripheral IV Access: 01/10/21 09 20 gauge Left Hand (Active) $ Lines: $ IV Start (procedure) 01/10/21929 Site Assessment WNL 01/10/21929 Infusion Status Port #1 Capped 01/10/21929 Allergies Allergen Reactions * Onion Swelling * Other (Review Comments!) Swelling Tougaloo cones and needles Out of Reference Range [...] Procedure Abnormality Status --------- ------ CBC WITH DIFFERENTIAL[[id number]] Abnormal Final result Please view results for [...] bolus (1,000 mL Intravenous IV New Bag 01/10/21 0929) dextrose 5 % in lactated ringers iv bolus (0 mL Intravenous IV Stop 01/10/21 0829) No active isolations Vitals Recorded in This [...] Yes, notified at 11:22 AM Normal [facility] ED Provider Noteson 01-11-20 Director Emergency Department Authentication Interface Message Text I, Fam Yepez [...] Yepez MD Emergency Medicine PGY-3 Normal The [employer] Director Emergency Department Authentication Interface Message Text EMERGENCY DEPARTMENT - VISIT NOTE ------- HISTORY OF PRESENT ILLNESS --- No chief complaint on file. HIPAA: Verbal permission granted from patient to discuss case, including protected health information, in front of family / friends in room at the time of the evaluation. Pusher Operator: not needed - patient preferred language is Bulgarian. The history is provided by the Patient. [...] AP ACS recs Impression Cholecystitis (Primary Diagnosis) [356984] Calculus of gallbladder with acute cholecyst (more content not included)... Normal [facility] H AND Warren 01-10-2021 Director Emergency Department Authentication Interface Message Text H AND P reviewed. The patient was examined and there are no changes to the H AND P. H AND P from 01/09/21 Surgery still Indicated Consent Obtained Gurpreet Villarreal MD General Surgery Resident Acute Care Surgery Pager [phone], 6a-6p [place] Pager -[phone], 6p-6a, weekends Normal [facility] OP Noteon 01-10-2021 Director Emergency Department Authentication Interface Message Text Name: MARCIE LOYOLA MR#: [id number] ENC#: [id number] Date of Procedure: 01/10/2021 ATTENDING SURGEON: Gabrielle [...] limitation of the length of the clip button puncher and the patient's body habitus. Therefore, a [...] Vicryl. This was performed in an interrupted rfvjsh-ju-wuerk fashion. The subcutaneous tissue was liberally irrigated. Hemostasis was achieved. 1% lidocaine, a total of 30 mL, was used for a local anesthetic. The skin of each port site was then closed with 4-0 Monocryl in interrupted subcuticular fashion. The skin was cleansed and dried and surgical glue and Steri-Strips applied. The patient (more content not included)... Normal [facility] Nursingon 01-10-2021 Director Emergency Department Authentication Interface Message Text Assessed pts position at change of shift and pt is still secured Normal [facility] Progress Noteson 01-10-2021 Director Emergency Department Authentication Interface Message Text Updated Assessment and [...] Care Fellow Acute Care Surgery Normal [facility] TYPE AND SCREENon 01-10-2021 ABO and Rh group Nom (Bld) Blood group B Rh(D) positive Normal [facility] Comment on above: Performed By: #### C H8, MG #### [facility] [address] [place] [address], ABO and Rh group Nom (Bld) No Previous Results Normal [facility] Comment on above: Performed By: #### C H8, MG #### [facility] [address] [place] [address], ABSC INT Negative Normal [facility] Comment on above: Performed By: #### C H8, MG #### [facility] [address] [place] [address], [phone] CBC W Auto Diff Bldon 2020 Basophils (Bld) [#/Vol] 0.03 10*3/uL Normal <0.11 [facility] Comment on above: Order Comment: Speci men Type: BLOOD SPECIMEN Performed By: #### 5 7021-8 #### [facility] CLIA [id number] [address] [place] [address] Basophils/100 WBC (Bld) 0.2 % Normal [facility] Comment on above: Order Comment: Speci men Type: BLOOD SPECIMEN Performed By: #### 5 7021-8 #### [facility] CLIA [id number] [address] [place] [address] Differential cell count method Nom (Bld) Auto Normal [facility] Comment on above: Order Comment: Speci men Type: BLOOD SPECIMEN Performed By: #### 5 7021-8 #### [facility] CLIA [id number] [address] [place] [address] Eosinophils (Bld) [#/Vol] 0.07 10*3/uL Normal <0.46 [facility] Comment on above: Order Comment: Speci men Type: BLOOD SPECIMEN Performed By: #### 5 7021-8 #### [facility] CLIA [id number] [address] [place] [address] Eosinophils/100 WBC (Bld) 0.4 % Normal [facility] Comment on above: Order Comment: Speci men Type: BLOOD SPECIMEN Performed By: #### 5 7021-8 #### [facility] CLIA [id number] [address] [place] [address] Erythrocyte distribution width (RBC) [Ratio] 14.2 % Normal 11.5-15.0 [facility] Comment on above: Order Comment: Speci men Type: BLOOD SPECIMEN Performed By: #### 5 7021-8 #### [facility] CLIA [id number] [address] [place] [address] Hematocrit (Bld) [Volume fraction] 39.6 % Normal [facility] Comment on above: Order Comment: Speci men Type: BLOOD SPECIMEN Performed By: #### 5 7021-8 #### [facility] CLIA [id number] [address] [place] [address] Hemoglobin (Bld) [Mass/Vol] 13.0 g/dL Normal 13.0-17.0 [facility] Comment on above: Order Comment: Speci men Type: BLOOD SPECIMEN Performed By: #### 5 7021-8 #### [facility] CLIA [id number] [address] [place] [address] IMMATURE GRAN % 0.6 % Normal [facility] Comment on above: Order Comment: Speci men Type: BLOOD SPECIMEN Performed By: #### 5 7021-8 #### [facility] CLIA [id number] [address] [place] [address] IMMATURE GRAN ABS 0.10 k/uL High <0.10 [facility] Comment on above: Order Comment: Speci men Type: BLOOD SPECIMEN Performed By: #### 5 7021-8 #### [facility] CLIA [id number] [address] [place] [address] Lymphocytes (Bld) [#/Vol] 2.00 10*3/uL Normal 1.00-4.00 [facility] Comment on above: Order Comment: Speci men Type: BLOOD SPECIMEN Performed By: #### 5 7021-8 #### [facility] CLIA [id number] [address] [place] [address] Lymphocytes/100 WBC (Bld) 11.0 % Normal [facility] Comment on above: Order Comment: Speci men Type: BLOOD SPECIMEN Performed By: #### 5 7021-8 #### [facility] CLIA [id number] [address] [place] [address] MCH (RBC) [Entitic mass] 27.3 pg Normal 26.0-34.0 [facility] Comment on above: Order Comment: Speci men Type: BLOOD SPECIMEN Performed By: #### 5 7021-8 #### [facility] CLIA [id number] [address] [place] [address] MCHC (RBC) [Mass/Vol] 32.8 g/dL Normal 30.5-36.0 [facility] Comment on above: Order Comment: Speci men Type: BLOOD SPECIMEN Performed By: #### 5 7021-8 #### [facility] CLIA [id number] [address] [place] [address] MCV (RBC) [Entitic vol] 83.0 fL Normal 80.0-100.0 [facility] Comment on above: Order Comment: Speci men Type: BLOOD SPECIMEN Performed By: #### 5 7021-8 #### [facility] CLIA [id number] [address] [place] [address] Monocytes (Bld) [#/Vol] 1.28 10*3/uL High <0.87 [facility] Comment on above: Order Comment: Speci men Type: BLOOD SPECIMEN Performed By: #### 5 7021-8 #### [facility] CLIA [id number] [address] [place] [address] Monocytes/100 WBC (Bld) 7.1 % Normal [facility] Comment on above: Order Comment: Speci men Type: BLOOD SPECIMEN Performed By: #### 5 7021-8 #### [facility] CLIA [id number] [address] [place] [address] Neutrophils (Bld) [#/Vol] 14.67 10*3/uL High 1.45-7.50 [facility] Comment on above: Order Comment: Speci men Type: BLOOD SPECIMEN Performed By: #### 5 7021-8 #### [facility] CLIA [id number] [address] [place] [address] Neutrophils/100 WBC (Bld) 80.7 % Normal [facility] Comment on above: Order Comment: Speci men Type: BLOOD SPECIMEN Performed By: #### 5 7021-8 #### [facility] CLIA [id number] [address] [place] [address] Nucleated RBC (Bld) [#/Vol] 10*3/uL Normal <0.01 [facility] Comment on above: Order Comment: Speci men Type: BLOOD SPECIMEN Performed By: #### 5 7021-8 #### [facility] CLIA [id number] [address] [place] [address] Nucleated RBC/100 WBC (Bld) [Ratio] 0.0 /100 WBC Normal 0.0 [facility] Comment on above: Order Comment: Speci men Type: BLOOD SPECIMEN Performed By: #### 5 7021-8 #### [facility] CLIA [id number] [address] [place] [address] Platelet mean volume (Bld) [Entitic vol] 9.0 fL Normal 9.0-12.7 [facility] Comment on above: Order Comment: Speci men Type: BLOOD SPECIMEN Performed By: #### 5 7021-8 #### [facility] CLIA [id number] [address] [place] [address] Platelets (Bld) [#/Vol] 468 10*3/uL High 150-400 [facility] Comment on above: Order Comment: Speci men Type: BLOOD SPECIMEN Performed By: #### 5 7021-8 #### [facility] CLIA [id number] [address] [place] [address] RBC (Bld) [#/Vol] 4.77 10*6/uL Normal 4.20-6.00 [facility] Comment on above: Order Comment: Speci men Type: BLOOD SPECIMEN Performed By: #### 5 7021-8 #### [facility] CLIA [id number] [address] [place] [address] WBC (Bld) [#/Vol] 18.15 10*3/uL High 3.70-11.00 [facility] Comment on above: Order Comment: Speci men Type: BLOOD SPECIMEN Performed By: #### 5 7021-8 #### [facility] CLIA [id number] [address] [place] [address] Comp Metab 2000 Pnl SerPlon 01-09-2021 Albumin [Mass/Vol] 3.5 g/dL Low 3.9-4.9 [facility] Comment on above: Order Comment: Speci men Type: BLOOD SPECIMEN Performed By: #### 2 4323-8, 3040-3 #### [facility] CLIA [id number] [address] [place] [address] ALP [Catalytic activity/Vol] 94 U/L Normal [facility] Comment on above: Order Comment: Speci men Type: BLOOD SPECIMEN Performed By: #### 2 4323-8, 3040-3 #### [facility] CLIA [id number] [address] [place] [address] ALT With P-5'-P [Catalytic activity/Vol] 24 U/L Normal [facility] Comment on above: Order Comment: Speci men Type: BLOOD SPECIMEN Performed By: #### 2 3-8, 0-3 #### [facility] CLIA [id number] [address] [place] [address] Anion gap [Moles/Vol] 10 mmol/L Normal 9-18 [facility] Comment on above: Order Comment: Speci men Type: BLOOD SPECIMEN Performed By: #### 2 4322-8, 0-3 #### [facility] CLIA [id number] [address] [place] [address] AST With P-5'-P [Catalytic activity/Vol] 15 U/L Normal [facility] Comment on above: Order Comment: Speci men Type: BLOOD SPECIMEN Performed By: #### 2 4322-8, 0-3 #### [facility] CLIA [id number] [address] [place] [address] Bilirubin [Mass/Vol] 1.0 mg/dL Normal 0.2-1.3 [facility] Comment on above: Order Comment: Speci men Type: BLOOD SPECIMEN Performed By: #### 2 3-8, 3040-3 #### [facility] CLIA [id number] [address] [place] [address] Calcium [Mass/Vol] 8.9 mg/dL Normal 8.5-10.2 [facility] Comment on above: Order Comment: Speci men Type: BLOOD SPECIMEN Performed By: #### 2 3-8, 3040-3 #### [facility] CLIA [id number] [address] [place] [address] Chloride [Moles/Vol] 98 mmol/L Normal 97-105 [facility] Comment on above: Order Comment: Speci men Type: BLOOD SPECIMEN Performed By: #### 2 4323-8, 3040-3 #### [facility] CLIA [id number] [address] [place] [address] CO2 [Moles/Vol] 25 mmol/L Normal 22-30 [facility] Comment on above: Order Comment: Speci men Type: BLOOD SPECIMEN Performed By: #### 2 4323-8, 0-3 #### [facility] CLIA [id number] [address] [place] [address] Creatinine [Mass/Vol] 0.45 mg/dL Normal [facility] Comment on above: Order Comment: Speci men Type: BLOOD SPECIMEN Performed By: #### 2 4323-8, 0-3 #### [facility] CLIA [id number] [address] [place] [address] GFR/1.73 sq M.predicted MDRD (S/P/Bld) [Vol rate/Area] mL/min/{1.73_m2} Normal [facility] Comment on above: Order Comment: Speci [...] actual GFR. Performed By: #### 2 4323-8, 3040-3 #### [facility] CLIA [id number] [address] [place] [address] Glucose [Mass/Vol] 135 mg/dL High 74-99 [facility] Comment on above: Order Comment: Speci men Type: BLOOD SPECIMEN Result Comment: The [place] [employer] (ADA) provides guidance for cutoff [...] Standards of Medical Care in Diabetes 2016, [place] [employer]. Diabetes Care. 2016.39(Suppl 1). Performed By: #### 2 4323-8, 3040-3 #### [facility] CLIA [id number] [address] [place] [address] Potassium [Moles/Vol] 3.6 mmol/L Low 3.7-5.1 [facility] Comment on above: Order Comment: Speci men Type: BLOOD SPECIMEN Performed By: #### 2 4323-8, 3040-3 #### [facility] CLIA [id number] [address] [place] [address] Protein [Mass/Vol] 7.6 g/dL Normal 6.3-8.0 [facility] Comment on above: Order Comment: Speci men Type: BLOOD SPECIMEN Performed By: #### 2 4323-8, 3040-3 #### [facility] CLIA [id number] [address] [place] [address] Sodium [Moles/Vol] 133 mmol/L Low 136-144 [facility] Comment on above: Order Comment: Speci men Type: BLOOD SPECIMEN Performed By: #### 2 4323-8, 3040-3 #### [facility] CLIA [id number] [address] [place] [address] Urea nitrogen [Mass/Vol] 4 mg/dL Normal [facility] Comment on above: Order Comment: Speci men Type: BLOOD SPECIMEN Performed By: #### 2 4323-8, 3040-3 #### [facility] CLIA [id number] [address] [place] [address] ED Triage Noteon 01-09-2021 ED Triage Note HNO ID: [id number] Author: Mayela Nunez) BAM Sumner Service: Emergency Medicine Author Type: Physician Payroll Clerk Type: ED Triage Notes Filed: 01/09/2021 11:14 AM Note Text: ED INTAKE NOTE Patient Name: Marcie Loyola Service Date: 01/09/21 BRIEF HPI: Marcie Loyola is a 25 year old ADULT presenting to the ED c/o RLQ abdominal pain. +N/V. LBM 2 days ago. -F/C. Seen at [place] with dx of gallstones. BRIEF EXAM: Constitutional: Well-developed, well-nourished, NAD. HEENT: Normocephalic, atraumatic. Respiratory: No respiratory distress. Cardiac: RRR. Musculoskeltal: MILLER x4. Neuro: AANDOx3. Skin: Warm and dry. INTAKE WORKUP: Bloodwork: CBC, CMP, lipase Urinalysis Test SIGNATURE: BAM Ness Normal [facility] Lipase SerPl-cCncon 01-10-20 21 Lipase [Catalytic activity/Vol] 20 U/L Normal 16-61 [facility] Comment on above: Order Comment: Speci men Type: BLOOD SPECIMEN Performed By: #### 2 4323-8, 3040-3 #### [facility] CLIA [id number] [address] [place] [address] Jonatan 05-13-2019 FERR 398.5 NG/ML High 8.0-307.0 [facility] Comment on above: Performed By: #### L 500.38511, L500.47937 #### [facility] [address] [place] [address] IRON PANELon 05-13-2019 Iron [Mass/Vol] 34 ug/dL Low 50-170 [facility] Comment on above: Result Comment: Marita ents treated with metal-binding drugs (e.g.deferoxamine) may have depressed iron values, as chelated iron may not properly react in the Siemens iron assay. Performed By: #### L 500.85217, L500.53132 #### [facility] [address] [place] [address] IRON SAT 11 % Low 22-44 [facility] Comment on above: Performed By: #### L 500.11546, L500.84508 #### [facility] [address] [place] [address] TIBC 309 UG/DL Normal 221-481 [facility] Comment on above: Performed By: #### L 500.22390, L500.08296 #### [facility] [address] [place] [address] [facility] 04-03-2019 Chromosome Analysis Bone Marrow see below Normal [facility] ([place]) Comment on above: Result Comment: (NOT E) Laboratory Accession Number: [id number] Doctor: OUTSIDE,PHYSICIAN Pathologist: N/A Surgical Pathology No: [...] [facility] Pathology and Laboratory Medicine [place] Division of Molecular Pathology Cytogenetics Lab, [id number] [address] [place] [address] Toll free: Corrected on 04/03 AT 1445: Previously reported as Performed By: [facility] [address] [place] [address] Landscape Specialist: Valerie Orantes M.D. CLIA#: [id number] Phone#: Performed By: #### C BC, ADIFF, ANEU, PRO, BMP, GFR #### [address] [address] MISCNBon 03-24-2019 [facility] lab Send Out (Non Blood) See Comments Normal [facility] ([place]) Comment on above: Order Comment: FISH for MPN panel Result Comment: Comp lete reference lab report scanned to EMR. Performed By: #### M ISCNB #### [address] [address] Final Bone Marrow Reporton 0 03-20-2019 Final Bone Marrow Report . Pathology Reports Accession: Collected Date/Time: Received Date/Time: Pathologist: [id number] 03/18/2019 13:17 EDT 03/19/2019 07:39 EDT DESEAN [...] in 1 cassette. Dictated by Priscila KUHN ([facility]) MICROSCOPIC DESCRIPTION: PERIPHERAL SMEAR: RBC [...] Electronically Signed by Pathology Report verified by [facility] Electronically signed by DESEAN ANNA Sign out Date: 03/20/2019 15:22 Performing Lab: [facility], [address] [place] [address] ([place]) Comment on above: Performed By: #### B MFR #### [place] [address] Final Flow Cytometry Reporto n 03-20-2019 Final Flow Cytometry Report . Pathology Reports Accession: Collected Date/Time: Received Date/Time: Pathologist: [id number] 03/18/2019 13:00 EDT 03/18/2019 13:47 EDT DESEAN [...] NA Heparin Tube: ([id number]) PATH PROF CPT: 49318 Testing performed by [facility] DISCLAIMER: This test was developed and its performance approved by [facility]. It has not been cleared [...] Electronically Signed by Pathology Report verified by [facility] Electronically signed by DESEAN ANNA Sign out Date: 03/20/2019 14:06 Performing Lab: [id number] [place] [address] ([place]) Comment on above: Performed By: #### F LFR #### [place] [address] .Auto Diffon 03-18-2019 Ammonia (P) [Mass/Vol] 0.60 10 3/mcL Normal 0.09-1.40 [facility] ([place]) Comment on above: Performed By: #### C BC, ADIFF, ANEU, PRO, BMP, GFR #### [place] [id number] Basophils (Bld) [#/Vol] 0.10 10 3/mcL Normal 0.00-0.27 [facility] ([place]) Comment on above: Performed By: #### C BC, ADIFF, ANEU, PRO, BMP, GFR #### [address] [address] Basophils/100 WBC (Bld) 0.8 % Normal 0.0-2.5 [facility] ([place]) Comment on above: Performed By: #### C BC, ADIFF, ANEU, PRO, BMP, GFR #### [address] [address] Eosinophils (Bld) [#/Vol] 0.30 10 3/mcL Normal 0.00-0.65 [facility] ([place]) Comment on above: Performed By: #### C BC, ADIFF, ANEU, PRO, BMP, GFR #### [address] [address] Eosinophils/100 WBC (Bld) 2.6 % Normal 0.0-6.0 [facility] ([place]) Comment on above: Performed By: #### C BC, ADIFF, ANEU, PRO, BMP, GFR #### [address] [address] Lymphocytes (Bld) [#/Vol] 3.80 10 3/mcL Normal 0.90-4.32 [facility] ([place]) Comment on above: Performed By: #### C BC, ADIFF, ANEU, PRO, BMP, GFR #### [address] [address] Lymphocytes/100 WBC (Bld) 36.9 % Normal 20.0-40.0 [facility] ([place]) Comment on above: Performed By: #### C BC, ADIFF, ANEU, PRO, BMP, GFR #### [address] [address] Monocytes/100 WBC (Bld) 5.5 % Normal 2.0-13.0 [facility] ([place]) Comment on above: Performed By: #### C BC, ADIFF, ANEU, PRO, BMP, GFR #### [address] [address] Neutrophils/100 WBC (Bld) 54.2 % Normal 50.0-75.0 [facility] ([place]) Comment on above: Performed By: #### C BC, ADIFF, ANEU, PRO, BMP, GFR #### [address] [address] .GFRon 03-18-2019 GFR >60 Normal [facility] ([place]) Comment on above: Result Comment: GFR Population [...] BC, ADIFF, ANEU, PRO, BMP, GFR #### [address] [address] GFR Non- >60 Normal [facility] ([place]) Comment on above: Result Comment: GFR Population [...] BC, ADIFF, ANEU, PRO, BMP, GFR #### [place] [address] .NEUABSon 03-18-2019 Neutrophils (Bld) [#/Vol] 5.50 10 3/mcL Normal 2.25-8.10 [facility] ([place]) Comment on above: Performed By: #### C BC, ADIFF, ANEU, PRO, BMP, GFR #### [place] [id number] BMPon 03-18-2019 Calcium [Mass/Vol] 9.0 mg/dL Normal 8.4-10.1 [facility] Comment on above: Order Comment: [place] [address] Performed By: #### C BC, ADIFF, ANEU, PRO, BMP, GFR #### [place] [address] Chloride [Moles/Vol] 107 mmol/L Normal 98-110 [facility] ([place]) Comment on above: Order Comment: [place] [address] Performed By: #### C BC, ADIFF, ANEU, PRO, BMP, GFR #### [address] [address] CO2 [Moles/Vol] 25 mmol/L Normal 22-32 [facility] ([place]) Comment on above: Order Comment: [place] [address] Performed By: #### C BC, ADIFF, ANEU, PRO, BMP, GFR #### [address] [address] Creatinine [Mass/Vol] 0.53 mg/dL Normal 0.50-1.20 [facility] ([place]) Comment on above: Order Comment: [place] [address] Performed By: #### C BC, ADIFF, ANEU, PRO, BMP, GFR #### [address] [address] Electrolyte Balance 8.0 mEq/L Normal 4.0-15.0 [facility] ([place]) Comment on above: Order Comment: [place] [address] Performed By: #### C BC, ADIFF, ANEU, PRO, BMP, GFR #### [address] [address] Glucose [Mass/Vol] 118 mg/dL High 70-110 [facility] [place] Comment on above: Order Comment: [place] [address] Performed By: #### C BC, ADIFF, ANEU, PRO, BMP, GFR #### [address] [address] Potassium [Moles/Vol] 4.2 mmol/L Normal 3.5-5.0 [facility] ([place]) Comment on above: Order Comment: [place] [address] Performed By: #### C BC, ADIFF, ANEU, PRO, BMP, GFR #### [address] [address] Sodium [Moles/Vol] 140 mmol/L Normal 136-145 [facility] [place] Comment on above: Order Comment: [place] [address] Performed By: #### C BC, ADIFF, ANEU, PRO, BMP, GFR #### [address] [address] Urea nitrogen [Mass/Vol] 8.0 mg/dL Normal 8.0-22.0 [facility] ([place]) Comment on above: Order Comment: [place] [address] Performed By: #### C BC, ADIFF, ANEU, PRO, BMP, GFR #### [place] [address] Urea nitrogen/Creatinine [Mass ratio] 15.1 ratio Normal 10.0-22.0 [facility] ([place]) Comment on above: Order Comment: [place] [address] Performed By: #### C BC, ADIFF, ANEU, PRO, BMP, GFR #### [place] [address] CBCon 03-18-2019 Erythrocyte distribution width (RBC) [Ratio] 17.0 % High 11.5-15.5 [facility] ([place]) Comment on above: Order Comment: [place] [address] Performed By: #### C BC, ADIFF, ANEU, PRO, BMP, GFR #### [place] [address] Hematocrit (Bld) [Volume fraction] 37.2 % Normal 34.0-46.0 [facility] ([place]) Comment on above: Order Comment: [place] [address] Performed By: #### C BC, ADIFF, ANEU, PRO, BMP, GFR #### [place] [address] Hemoglobin (Bld) [Mass/Vol] 12.2 G/dL Normal 12.0-16.0 [facility] ([place]) Comment on above: Order Comment: [place] [address] Performed By: #### C BC, ADIFF, ANEU, PRO, BMP, GFR #### [address] [address] MCH (RBC) [Entitic mass] 24.8 pg Low 27.0-33.0 [facility] ([place]) Comment on above: Order Comment: [place] [address] Performed By: #### C BC, ADIFF, ANEU, PRO, BMP, GFR #### [address] [address] MCHC (RBC) [Mass/Vol] 32.7 G/dL Normal 32.0-36.0 [facility] ([place]) Comment on above: Order Comment: [place] [address] Performed By: #### C BC, ADIFF, ANEU, PRO, BMP, GFR #### [address] [address] MCV (RBC) [Entitic vol] 75.9 fL Low 80.0-99.0 [facility] ([place]) Comment on above: Order Comment: [place] [address] Performed By: #### C BC, ADIFF, ANEU, PRO, BMP, GFR #### [address] [address] Platelet mean volume (Bld) [Entitic vol] 7.5 fL Normal 6.6-10.5 [facility] ([place]) Comment on above: Order Comment: [place] [address] Performed By: #### C BC, ADIFF, ANEU, PRO, BMP, GFR #### [address] [address] Platelets (Bld) [#/Vol] 515 10 3/mcL High 150-450 [facility] ([place]) Comment on above: Order Comment: [place] [address] Performed By: #### C BC, ADIFF, ANEU, PRO, BMP, GFR #### [address] [id number] RBC (Bld) [#/Vol] 4.91 10 6/mcL Normal 4.10-5.30 [facility] ([place]) Comment on above: Order Comment: [place] [id number] Performed By: #### C BC, ADIFF, ANEU, PRO, BMP, GFR #### [address] [address] WBC (Bld) [#/Vol] 10.20 10 3/mcL Normal 4.50-10.80 [facility] ([place]) Comment on above: Order Comment: [place] [id number] Performed By: #### C BC, ADIFF, ANEU, PRO, BMP, GFR #### [place] [address] IR BIOPSY BONE MARROWon 02-28 IR BIOPSY BONE MARROW ORIGINAL PROCEDURE: 1. Bone marrow aspiration with core biopsy from the LEFT bony ilium with fluoroscopic guidance CLINICAL HISTORY: Leukocytosis. COMPARISON: None. BIOTECHNOLOGIST: Dr. Ca MULTIMEDIA PRODUCTION ASSISTANT: None. MATERIALS UTILIZED: 13G x 15 cm [...] aspirate was aspirated and provided to the laborer/key man who confirmed the presence of bone spicules. [...] biopsy. The samples were provided to the laborer/key man to be sent to pathology for analysis. Interpreted By: Taylor Ca DO Preliminary Report By: Taylor Ca DO Electronically Signed By: Taylor Ca DO Dictated Date: 03/18/2019 3:50:16 PM Prelim Date: 03/18/2019 4:33:11 PM Sign Date: 03/18/2019 6:13:03 PM [facility] ([place]) MOLECULARon 03-18-2019 MOLECULAR PROCEDURE REPORT Specimen #: [id number] Submitting Physician: ANNALEE COKER SPECIMEN SUBMITTED A: [...] probes: BCR/ABL (Dual color, dual fusion probe, MemBlaze, [facility], [place]), PDGFRA (Tricolor rearrangement probe, [employer]), PDGFRB (Dual color, break-apart probe, [employer],[place], [place]), and FGFR1 (Dual color, break-apart probe, [employer]). This test should not be used for the detection of minimal residual disease. Pathologist Interpretation: Osvaldo Alba MD, PhD ANALYTE SPECIFIC REAGENT (ASR) DISCLAIMER This test was developed and its performance characteristics determined by [facility]'s [facility] [place] [facility] It has not been cleared or approved by the FDA. [facility] is regulated under CLIA as qualified to perform high-complexity testing. This test is used for clinical purposes. It should not be regarded as investigational or for research. /brendan 03/20/2019 Procedure Pathologist: Osvaldo Alba M.D., Ph.D. Electronic Signature CLINICAL DATA None provided. Date of Report: Date of Procedure: 03/18/2019 Date of Receipt: 03/19/2019 Submitted: ANNALEE COKER Location: [facility] Diagnostic interpretation performed at [facility], [address] [place] [address]. Normal [facility] Reference Lab Comment on above: Performed By: #### C OPA #### See report for performing lab information. PROon 03-18-2019 INR Coag (PPP) [Relative time] 1.1 {INR} Normal [facility] ([place]) Comment on above: Order Comment: [place] [id number] Result Comment: The [place] [employer] (CHEST, 1992, 102:312S-25S) recommended therapeutic range for oral anticoagulant therapy is: LOW RISK: Prophylaxis of venous thrombosis INR: 2.0-3.0 Treatment of pulmonary embolism 2.0-3.0 Prevention of systemic embolism 2.0-3.0 HIGH RISK: Mechanical prosthetic valves 2.5-3.5 Performed By: #### C BC, ADIFF, ANEU, PRO, BMP, GFR #### [place] [id number] [place] [id number] PT Coag (PPP) [Time] 12.8 s Normal 9.0-14.6 [facility] ([place]) Comment on above: Order Comment: [place] [id number] Result Comment: Effe ctive 04/13/08, Protime results may be affected by some antibiotics (i.e. Ciprofloxacin, Azithromycin, Bactrim) which may potentiate the action of oral anticoagulants, with further increases in Protime/INR. Performed By: #### C BC, ADIFF, ANEU, PRO, BMP, GFR #### [place] [id number] [place] [address] Vital Signs Date Time Vital Sign Value Performing Clinician Shanice mckeon 01-11-2023 15:47-0400 Body weight 151.96 kg Xiang Ruiz DO Work Phone: [facility] Encounters Encounter Date Encounter Type Care Provider Facility Start: 06-30-2024 End: 06-30-2024 ambulatory Xiang Ramirezon DO Work Phone: [facility] [place] Comment on above: ER mix up Start: 06-30-2024 End: 06-30-2024 Telephone encounter Xiang Ruiz DO Work Phone: [facility] [place] Comment on above: Medication Problem Start: 06-20-2024 End: 06-20-2024 ambulatory XIANG RUIZ Facility:[facility] Start: 06-15-2024 End: 06-17-2024 Refill Lisa De La O APRN.AUTOMATIC FANCY MACHINE OPERATOR Work Phone: [facility] [place] Comment on above: Refill Request Start: 06-04-2024 End: 06-08-2024 Telephone encounter Xiang Ruiz DO Work Phone: [facility] [place] Comment on above: Orders Start: 06-02-2024 End: 06-04-2024 ambulatory Xiang Ruiz DO Work Phone: [facility] [place] Comment on above: Dasco measurement in fo Start: 05-12-2024 Refill Xiang magallanes DO Work Phone: [facility] [place] Comment on above: Refill Request Start: 04-27-2024 End: 04-27-2024 ambulatory XIANG RUIZ Facility:[facility] Start: 04-24-2024 ambulatory Xiang magallanes DO Work Phone: [facility] [place] Comment on above: Victoza issue Start: 04-24-2024 Telephone encounter Xiang simpson DO Work Phone: [facility] [place] Comment on above: Medication Problem Start: 04-22-2024 Telephone encounter Xiang simpson DO Work Phone: [facility] [place] Comment on above: Medication Informati on Start: 04-21-2024 End: 04-21-2024 [facility] Xiang Ruiz DO Work Phone: [facility] [place] Comment on above: Type 2 diabetes karine itus with hyperglycemia, without long-term current use of insulin (HCC) (Primary Dx); Hypertension, essential; Vitamin B12 deficiency; Essential hypertension; Vitamin D deficiency; Dyslipidemia; Gait disorder; Osteoarthritis of spine with radiculopathy, lumbar region; Weakness of both legs; Hair thinning; Acne vulgaris Start: 03-05-2024 Refill Xiang magallanes DO Work Phone: [facility] [place] Comment on above: Refill Request Start: 02-06-2024 End: 02-06-2024 ambulatory TYREE BRIZEULA Facility:[facility] Start: 01-22-2024 End: 01-22-2024 ambulatory Tyree [...] Start: 01-16-2024 Refill Lisa De La O STATISTICAL ENGINEER.AUTOMATIC FANCY MACHINE OPERATOR Work Phone: [facility] [place] Comment on above: Refill Request Instructions for you r upcoming appointment Start: 01-01-2024 Refill Lisa Ramirezson STATISTICAL ENGINEER.AUTOMATIC FANCY MACHINE OPERATOR Work Phone: [facility] [place] Comment on above: Refill Request Start: 12-25-2023 End: 12-25-2023 ambulatory XIANG RUIZ Facility:[facility] Start: 12-13-2023 Refill Lisa Ramirezson STATISTICAL ENGINEER.AUTOMATIC FANCY MACHINE OPERATOR Work Phone: [facility] [place] Comment on above: Refill Request Start: 12-11-2023 Telephone encounter Xiang simpson DO Work Phone: [facility] [place] Start: 12-09-2023 End: 12-09-2023 ambulatory XIANG RUIZ Facility:[facility] Start: 12-09-2023 Telephone encounter Xiang simpson DO Work Phone: [facility] [place] Comment on above: Patient Question Start: 12-06-2023 ambulatory Xiang magallanes DO Work Phone: [facility] [place] Comment on above: Metformin mix up Start: 12-04-2023 End: 12-04-2023 ambulatory Xiang Ruiz DO Work Phone: [facility] [place] Comment on above: CRP elevated (Primar y [...] with patient Xiang Ruiz DO Work Phone: [facility] [place] Start: 09-05-2023 Refill Tiki serrano STATISTICAL ENGINEER.AUTOMATIC FANCY MACHINE OPERATOR Work Phone: [facility] Comment on above: Refill Request Start: 05-30-2023 Telephone encounter Roxana Abrams AME.AUTOMATIC FANCY MACHINE OPERATOR Work Phone: [facility] Comment on above: Results Start: 04-26-2023 End: 04-26-2023 ambulatory Xiang Ruiz DO Work Phone: [facility] Comment on above: Left sided sciatica (Primary [...] 04-25-2023 Refill Xiang magallanes DO Work Phone: [facility] Comment on above: Refill Request Start: 04-10-2023 Refill Lisa De La O STATISTICAL ENGINEER.AUTOMATIC FANCY MACHINE OPERATOR Work Phone: [facility] Comment on above: Refill Request Start: 01-18-2023 ambulatory Xiang magallanes DO Work Phone: [facility] [place] Start: 01-18-2023 Letter encounter iXang garsia DO Work Phone: [facility] Comment on above: Jury duty letter Start: 01-11-2023 End: 01-11-2023 ambulatory Xiang Ruiz DO Work Phone: [facility] Comment on above: Situational anxiety (Primary Dx); Type 2 diabetes mellitus with hyperglycemia, without long-term current use of insulin (HCC); Morbid obesity with BMI of 60.0-69.9, adult (HCC); Left sided sciatica; Chronic left-sided low back pain with left-sided sciatica; Dysmetabolic syndrome Start: 01-11-2023 End: 01-11-2023 Telemedicine consultation with patient Xiang Ruiz DO Work Phone: [facility] [place] Start: 06-20-2022 End: 06-20-2022 Subsequent hospital visit by physician Idalia [facility] [place] Work Phone: Radiology Comment on above: Acute pain of right knee [M25.561] Start: 01-26-2021 Patient Outreach Jacques CALLAHAN SW Work Phone: [facility] UNI5 Work Comment on above: MARY ANNE OUTREACH Start: 01-24-2021 End: 01-24-2021 ambulatory UNKNOWN PROVIDER Facility:[facility] Start: 01-10-2021 ambulatory UNKNOWN PROVIDER Facili ty:[facility] Start: 01-10-2021 End: 01-15-2021 Evaluation and management of inpatient IP PHYSICAL THERAPY SERVICE REQUEST Facility:[facility] Procedures Date Procedure Procedure Detail Performing Clinician Start: 06-20-2022 Radiologic exam knee complete 4/more views Xiang Ruiz DO Work Phone: Plan of Treatment Date Care Activity Detail Author Start: 12-13-2043 Shingles (RZV) Vacci ne (1 of 2) Shingles (RZV) Vaccine (1 of 2) [facility] Start: 04-09-2028 Tetanus vaccination Tetanus (T d or Tdap) Booster [facility] Start: 04-09-2028 Urine microalbumin profile [facility] Start: 06-20-2025 Hepatitis B surface antibody level LDL Cholesterol [facility] Start: 04-27-2025 Hepatitis B surface antibody level LDL Cholesterol [facility] Start: 04-21-2025 Annual PCP Team Director Emergency Department calli Disease Visit Annual PCP Team Chronic Disease Visit [facility] Start: 04-21-2025 Diabetic foot examination Diabetic Foot Exam [facility] Start: 12-24-2024 Annual PCP Team Director Emergency Department calli Disease Visit Annual PCP Team Chronic Disease Visit [facility] Start: 12-08-2024 Hepatitis B surface antibody level LDL Cholesterol [facility] Start: 12-03-2024 Annual PCP Team Director Emergency Department calli Disease Visit Annual PCP Team Chronic Disease Visit [facility] Start: 09-19-2024 Hemoglobin A1c measurement HbA1C [facility] Start: 08-17-2024 End: 08-17-2024 Follow-up encounter 08/17/2024 3:00 PM [facility] [place] [address] [place] [address] Xiang Ruiz DO [address] [place] [address] Follow up [facility] [place] Comment on above: Follow up Start: 07-28-2024 Hemoglobin A1c measurement HbA1C [facility] Start: 06-20-2024 End: 06-20-2024 ambulatory 06/20/2024 11:15 AM EDT [facility] [address] [place] [address] [place] [facility] Start: 06-10-2024 Hemoglobin A1c measurement HbA1C [facility] Start: 05-31-2024 Covid-19 Vaccine ( season) Covid-19 Vaccine () [facility] Start: 05-31-2024 Influenza vaccination Influenza Vacc ine (#1) [facility] Start: 04-27-2024 End: 04-27-2024 ambulatory 04/27/2024 1:30 PM EDT Results Only [place] [facility] [address] [place] [address] [place] [facility] Start: 04-26-2024 ANNUAL PCP TEAM BARRELHEAD INSPECTOR CALLI DISEASE VISIT ANNUAL PCP TEAM CHRONIC DISEASE VISIT [facility] Start: 04-21-2024 End: 04-21-2024 Follow-up encounter 04/21/2024 3:00 PM EDT [facility] [place] [address] [place] [address] Xiang Ruiz DO [address] [place] [address] Follow up [facility] [place] Comment on [...] Vitamin B12 deficiency Expected: 04/21/2024, Expires: 07/21/2024 [facility] Work Phone: Comment on above: Expected: 04/21/2024 [...] hospital visit by physician 02/06/2024 Hospital Encounter [facility] [address] [place] [address] Tyree Brizuela MD [address] [facility] [id number] [place] [address] Chronic left-sided low back pain with left-sided sciatica [M54.42, G89.29] [facility] Comment on above: Chronic left-sided l ow back pain with left-sided sciatica [M54.42, G89.29] Start: 01-12-2024 ANNUAL PCP TEAM BARRELHEAD INSPECTOR CALLI DISEASE VISIT ANNUAL PCP TEAM CHRONIC DISEASE VISIT [facility] Start: 12-13-2023 Screening for malign ant neoplasm of cervix HPV Testing [facility] Start: 12-04-2023 End: 03-04-2024 C reactive protein [Mass/volume] in Serum or Plasma C-REACTIVE PROTEIN (CRP) Lab Routine CRP elevated Expected: 12/04/2023, Expires: 03/04/2024 [facility] Work Phone: Comment on above: Expected: 12/04/2023 , Expires: 03/04/2024 Start: 12-04-2023 End: 03-04-2024 Cobalamin (Vitamin B12) [Mass/volume] in Serum or Plasma VITAMIN B12 BLOOD Lab Routine Vitamin B12 deficiency Expected: 12/04/2023, Expires: 03/04/2024 [facility] Work Phone: Comment on above: Expected: 12/04/2023 , Expires: 03/04/2024 Start: 12-04-2023 End: 03-04-2024 Comprehensive metabolic 2000 panel - Serum or Plasma COMP METABOLIC PANEL Lab Routine Type 2 diabetes mellitus with hyperglycemia, without long-term current use of insulin (HCC) Expected: 12/04/2023, Expires: 03/04/2024 [facility] Work Phone: Comment on above: Expected: 12/04/2023 , Expires: 03/04/2024 Start: 12-04-2023 End: 03-04-2024 Hemoglobin A1c in Blood HGB A1C Lab Routine Type 2 diabetes mellitus with hyperglycemia, without long-term current use of insulin (HCC) Expected: 12/04/2023, Expires: 03/04/2024 [facility] Work Phone: Comment on above: Expected: 12/04/2023 , Expires: 03/04/2024 Start: 12-04-2023 End: 03-04-2024 Lipid 1996 panel - Serum or Plasma LIPID PANEL BASIC Lab Routine Hyperlipidemia, mixed Expected: 12/04/2023, Expires: 03/04/2024 [facility] Work Phone: Comment on above: Expected: 12/04/2023 , Expires: 03/04/2024 Start: 12-04-2023 End: 03-04-2024 Thyrotropin [Units/volume] in Serum or Plasma TSH BLD Lab Routine Type 2 diabetes mellitus with hyperglycemia, without long-term current use of insulin (HCC) Expected: 12/04/2023, Expires: 03/04/2024 [facility] Work Phone: Comment on above: Expected: 12/04/2023 , Expires: 03/04/2024 Start: 10-13-2023 Hemoglobin A1c measurement HbA1C [facility] Start: 10-13-2023 Hemoglobin A1c/Hemoglobin.total in Blood HBA1C [facility] Start: 10-03-2023 BP CONTROLLED (<130/80) BP CONTROLLE D (<130/80) [facility] Start: 07-03-2023 Hemoglobin A1c/Hemoglobin.total in Blood HBA1C [facility] Start: 06-30-2023 Influenza vaccination Influenza Vacc ine (#1) [facility] Start: 06-20-2023 Hepatitis B surface antibody level LDL CHOLESTEROL [facility] Start: 05-31-2023 Covid-19 Vaccine ( season) Covid-19 Vaccine () [facility] Start: 05-31-2023 Influenza vaccination INFLUENZA (#1) [facility] Start: 04-26-2023 End: 06-26-2023 PAIN PANEL, UR QUANT PAIN PANEL, UR QUANT Lab Routine Left sided sciatica Chronic left-sided low back pain with left-sided sciatica Expected: 04/26/2023, Expires: 06/26/2023 [facility] Work Phone: Comment on above: Expected: 04/26/2023 , Expires: 06/26/2023 Start: 04-26-2023 End: 06-26-2023 TOX SCREEN ROUT UR TOX SCREEN ROUT UR Lab Routine Left sided sciatica Chronic left-sided low back pain with left-sided sciatica Expected: 04/26/2023, Expires: 06/26/2023 [facility] Work Phone: Comment on above: Expected: 04/26/2023 , Expires: 06/26/2023 Start: 04-12-2023 End: 06-12-2023 Comprehensive metabolic 2000 panel - Serum or Plasma COMP METABOLIC PANEL Lab Routine Type 2 diabetes mellitus with hyperglycemia, without long-term current use of insulin (HCC) Expected: 04/12/2023, Expires: 06/12/2023 [facility] Work Phone: Comment on above: Expected: 04/12/2023 , Expires: 06/12/2023 Start: 04-12-2023 End: 06-12-2023 Hemoglobin A1c in Blood HGB A1C Lab Routine Type 2 diabetes mellitus with hyperglycemia, without long-term current use of insulin (HCC) Expected: 04/12/2023, Expires: 06/12/2023 [facility] Work Phone: Comment on above: Expected: 04/12/2023 , Expires: 06/12/2023 Start: 04-12-2023 End: 06-12-2023 Lipid 1996 panel - Serum or Plasma LIPID PANEL BASIC Lab Routine Dysmetabolic syndrome Expected: 04/12/2023, Expires: 06/12/2023 [facility] Work Phone: Comment on above: Expected: 04/12/2023 [...] malign ant neoplasm of cervix Pap Smear [facility] Start: 12-13-2011 HEPATITIS C SCREENING HEPATITIS C SC REENING [facility] Start: 12-13-2011 [facility] Start: 12-13-2011 HIV SCREENING HIV SCREENING [facility] Start: 12-13-2011 HIV screening HIV Screening [facility] Start: 2008 HIV screening HIV Test [facility] Start: 12-13-2003 3 comp foot exam completed [...] sciatica 1 Occurrences starting 01/22/2024 until 02/20/2025 [facility] Work Phone: Comment on above: 1 Occurrences starti ng 01/22/2024 until 02/20/2025 [facility] Immunizations Immunization Date Immunization Notes Care Provider Suzanne gaviria 06-20-2024 COVID-19 vaccine (NOVAVAX) Xiang Ruiz DO Work Phone: [facility] 06-20-2024 influenza, seasonal, injectable Xiang Ruiz DO Work Phone: [facility] 06-15-2023 influenza, injectabl e, quadrivalent, preservative free Tiki Rose APRNIsrealAUTOMATIC FANCY MACHINE OPERATOR Work Phone: [facility] 06-15-2023 influenza virus vacc ine, unspecified formulation Xiang Ruiz DO Work Phone: [facility] 07-06-2022 influenza, injectabl e, quadrivalent, preservative free Xiang Ruiz DO Work Phone: [facility] 07-06-2022 influenza virus vacc ine, unspecified formulation Jacques MCCAINW Work Phone: [facility] 11-21-2021 Pfizer Monovalent (1 2+ yrs) SARS-COV-2 (COVID-19) vaccine, mRNA, spike protein, LNP, pres. free, 30 mcg/0.3mL dose, kathrin-sucrose (VSP=400) Jacqueserich MCCAINW Work Phone: [facility] 08-24-2021 influenza, injectabl e, quadrivalent, preservative free Jacques MCCAINW Work Phone: [facility] 12-25-2020 Pfizer Monovalent (1 2+ yrs) SARS-COV-2 (COVID-19) vaccine, mRNA, spike protein, LNP, pres. free, 30 mcg/0.3mL dose (HTW=062) Jacqueserich ROSA Work Phone: [facility] 06-29-2020 influenza, seasonal, injectable Xiang Ruiz [...] vaccine, adsorbed Xiang Minorrison DO Work Phone: [facility] Work Phone: 07-19-2017 influenza virus vacc ine, unspecified formulation Xiang Minorrison DO Work Phone: [facility] 10-19-2014 pneumococcal polysaccharide vaccine, 23 valent Xiang Minorrison DO Work Phone: [facility] Work Phone: 08-27-2011 influenza, seasonal, injectable Jacques Groze EXPEDITER Work Phone: [facility] 07-14-2009 influenza, seasonal, injectable Jacques Groze EXPEDITER Work Phone: [facility] 03-01-2009 human papilloma viru s vaccine, quadrivalent Jacques Groze EXPEDITER Work Phone: [facility] 10-05-2008 human papilloma viru s vaccine, quadrivalent Jacques Groze EXPEDITER Work Phone: [facility] 07-31-2008 influenza, seasonal, injectable Jacques Groze EXPEDITER Work Phone: [facility] 06-13-1999 diphtheria, tetanus toxoids and acellular pertussis vaccine, unspecified formulation Jacques Groze EXPEDITER Work Phone: [facility] 02-15-1999 measles, mumps and rubella virus vaccine Jacques Groze EXPEDITER Work Phone: [facility] 02-15-1999 trivalent poliovirus vaccine, live, oral Jacques Groze EXPEDITER Work Phone: [facility] 06-28-1995 diphtheria, tetanus toxoids and pertussis vaccine Jacques Groze EXPEDITER Work Phone: [facility] 06-28-1995 trivalent poliovirus vaccine, live, oral Jacques Groze EXPEDITER Work Phone: [facility] 05-17-1995 varicella virus vaccine Jacques Groze EXPEDITER Work Phone: [facility] 04-12-1995 haemophilus influenz ae type b vaccine, conjugate unspecified formulation Jacques [employer] EXPEDITER Work Phone: [facility] 07-11-1994 hepatitis B vaccine, pediatric or pediatric/adolescent dosage Jacques Groze EXPEDITER Work Phone: [facility] 06-20-1994 diphtheria, tetanus toxoids and pertussis vaccine Jacques Groze EXPEDITER Work Phone: [facility] 06-20-1994 haemophilus influenz ae type b vaccine, conjugate unspecified formulation Jacques SpotisticW Work Phone: [facility] 04-18-1994 diphtheria, tetanus toxoids and pertussis vaccine Jacques Groze EXPEDITER Work Phone: [facility] 04-18-1994 haemophilus influenz ae type b vaccine, conjugate unspecified formulation Jacques SpotisticW Work Phone: [facility] 04-18-1994 trivalent poliovirus vaccine, live, oral Jacques SpotisticW Work Phone: [facility] 02-14-1994 diphtheria, tetanus toxoids and pertussis vaccine Jacques Groze EXPEDITER Work Phone: [facility] 02-14-1994 haemophilus influenz ae type b vaccine, conjugate unspecified formulation Jacques SpotisticW Work Phone: [facility] 02-14-1994 hepatitis B vaccine, pediatric or pediatric/adolescent dosage Jacques Groze EXPEDITER Work Phone: [facility] 02-14-1994 trivalent poliovirus vaccine, live, oral Jacques Groze EXPEDITER Work Phone: [facility] 01-03-1994 hepatitis B vaccine, pediatric or pediatric/adolescent dosage Jacques Groze EXPEDITER Work Phone: [facility] Payers Date Payer Category Payer Medicaid [id number] 2020 Medicaid [id number] 2019 Medicaid [id number] 1993 Unknown [id number] 1993 Unknown [id number] 1993 Unknown [id number] Social History Date Type Detail Facility Start: 04-09-2018 End: 02-26-2023 Tobacco smoking status NHIS Never smoked tobacco [facility] [...] Phone 5 [facility] Start: 10-01-2022 History SDOH Social Connections Taoism 98 [facility] Start: 10-01-2022 [...] Hospital How often do you att end orthodox or orthodox services? Patient refused [facility] Do you belong to any clubs or organizations such as orthodox groups, unions, fraternal or athletic groups, or school groups? No [facility] Are you now , , , , never or living with a partner? [facility] How often to you hav e a drink containing alcohol? Monthly or less [facility] How many standard dr inks containing alcohol do you have on a typical day? 1 or 2 [facility] How often do you hav e 6 [...] much [facility] (I/We) worried jess er (my/our) food would run out before (I/we) got money to buy more. Sometimes true [facility] The food that (I/we) bought just didn't last, and (I/we) didn't have money to get more. Often true [facility] Start: 01-12-2023 Gender identity Identifies as female gender (finding) [facility] Tobacco smoking stat [facility] Tobacco smoking consumption unknown [facility] Work Phone: Start: 1995 Sex Assigned At Not on file [facility] Start: 12-11-2020 End: 01-10-2021 Exposure to SARS-CoV-2 (event) Not sure [facility] Are you now , , , [...] Code Equipment Original Text Equipment Identifier Dates [id number], [id number], [id number] Start: 07-09-2022 Comment on above: Test blood sugar(s) 2 times daily. Dx: Type 2 DM - Uncontrolled E11.65 Insulin: No Clinical Notes 01-11-2021 to 06-30-2024 Telephone Encounter - Meagan Lindsey MA - 06/30/2024 12:12 PM EDTTelephone Encounter - Meagan Lindsey MA - 06/30/2024 12:12 PM EDTGXiang simpson DO - 04/21/2024 3:40 PM EDT Note Date & Type Note Facility 06-30-2024 Telephone encounter Note Pt informed via MC Message Meagan Lindsey MA [facility] 06-30-2024 Miscellaneous Notes Pt informed via MC Message Meagan Lindsey MA Reviewed ED note. [...] NOEMY Duran: Consultation - Emergency Medicine Iker Javier Famp My Chart Rx Pool (supporting Xiang Ruiz DO)1 hour ago (9:42 AM) BT I got the name confused it s cipro but yeah for some reason it is in my medication list but they never got it at the pharmacy Bunny D Hussain P Wstr Famp My Chart Rx [...] NOEMY Duran: Consultation - Emergency Medicine Iker Loyola P Wstr Famp My Chart [...] never got it at the pharmacy Iker Real Wstr Famp My Chart Rx Pool (supporting Xiang Ruiz DO)1 hour ago (9:35 AM) BT Sunny I was in the emergency room for [...] Hospital 06-08-2024 Telephone encounter Note Order with [facility] 04/21/24 documented need for wheelchair printed. Faxed to [facility]: [phone]. Vivien Ozuna MA [facility] 06-08-2024 Miscellaneous Notes Order with [facility] 04/21/24 documented need for wheelchair printed. Faxed to [facility]: [phone]. Vivien Ozuna MA Wheelchair ordered with measurements-please print and fax below. Please let me know if you need a different order Prashanth Baird PA-C Not at all sure how to load this order. Please load order needed Xiang Ruiz DO Images from the original note were not included. Please see provider message -- Iker Javier Famp My Chart Rx Pool (supporting Xiang Ruiz DO)2 days ago BT Hello I am having my prescription for my wheelchair filled by [facility] here in [place] and they asked me to measure how wide my hips were for the chair so they can get an idea of what they need to order and then they wanted me to send this info to my doctor and have you guys fax it to them so my measurement is 30 inches and their fax number is [phone] thank you documented in this encounter [facility] [...] included. Please see provider message -- Iker Javier Famp My Chart Rx Pool (supporting Xiang Ruiz DO)2 days ago BT Hello I am having my prescription for my wheelchair filled by [facility] here in [place] and they asked me to measure how wide my hips were for the chair so they can get an idea of what they need to order and then they wanted me to send this info to my doctor and have you guys fax it to them so my measurement is 30 inches and their fax number is [phone] thank you [facility] 06-04-2024 Telephone encounter Note Turned into TE Meagan Lindsey MA [facility] 06-04-2024 Miscellaneous Notes Turned into TE Meagan Lindsey MA documented in this encounter [facility] 05-13-2024 Telephone encounter Note [facility]-04/21/24 Labs-12/09/23 NOV- My chart message sent. Lily Marrero LPN [facility] 05-13-2024 Miscellaneous Notes [facility]-04/21/24 Labs-12/09/23 NOV- My chart message sent. Lily Marrero LPN documented in this encounter [facility] 04-24-2024 Telephone encounter Note Pt informed via [email or web address] message Meagan Lindsey MA [facility] 04-24-2024 Miscellaneous Notes Pt informed via [email or web address] message Meagan Lindsey MA The following approved [...] can get them sent in. Roxana Ocasio APRN.TABATHA Please see pt message -- I went [...] Provider: XIANG RUIZ Ordering User: ROXANA OCASIO APRN.AUTOMATIC FANCY MACHINE OPERATOR [facility] 04-24-2024 Telephone encounter Note 31G 5mm per pharmacy Meagan Lindsey MA [facility] 04-24-2024 Telephone encounter Note I'm not sure what size needles for Victoza? If we can find this out, I can get them sent in. Roxana Ocasio APRN.AUTOMATIC FANCY MACHINE OPERATOR [facility] 04-24-2024 Telephone encounter [...] Noted. Thank you, Lisa De La O APRN.AUTOMATIC FANCY MACHINE OPERATOR [facility] 04-22-2024 Miscellaneous Notes Noted. Thank you, Lisa De La O APRN.AUTOMATIC FANCY MACHINE OPERATOR Eliseo from [facility] calls and states that they received [...] Hospital 04-22-2024 Telephone encounter Note Eliseo from [facility] pharmacy calls and states that they received order for Victoza. Eliseo states that when provider titrates medication up then provider will have to send in new prescription for this. Eliseo will process prescription as the 0.6 mg but per insurance new prescription will have to be sent if medication is increased. Alexus Alonso RN [facility] 04-21-2024 Note HNO ID: [id number] Author: XIANG RUIZ, DO Service: ? Author Type: Physician Type: Progress Notes Filed: 04/21/2024 16:46 Note Text: VIRTUAL VISIT PROGRESS NOTE This is a virtual visit using [employer] Z[employer] Video Visit. It required patient-provider interaction for the medical decision making as documented below. I have communicated my name and active licensure. The patient's identity and physical location were verified at the time of this visit. Either the patient or their legal training representative has been informed of the risks and benefits of -- and alternatives to -- treatment through a remote evaluation and consents to proceed with the evaluation remotely. Marcie Loyola is a 28 year old female seen for follow up Recurrent UTI and kidney stones, multiple stone removal procedures and 2 separate ureteral stents placed and removed by URO ELECTRICAL ENGINEERING TECHNOLOGIST Dr. Lunsford. This has caused multiple EMERGENCY [...] hyperglycemia, without long-term current use of insulin ([facility]) 07/10/2022 Vitamin D deficiency 09/2014 [...] nausea/vomiting. loratadine (CLARITIN (more content not included)... [facility] 04-21-2024 History of Presen t illness Narrative VIRTUAL VISIT PROGRESS NOTE This is a virtual visit using [employer] Video Visit. It required patient-provider interaction for the medical decision making as documented below. I have communicated my name and active licensure. The patient's identity and physical location were verified at the time of this visit. Either the patient or their legal training representative has been informed of the risks and benefits of -- and alternatives to -- treatment through a remote evaluation and consents to proceed with the evaluation remotely. Marcie Loyola is a 28 year old female seen for follow up Recurrent UTI and kidney stones, multiple stone removal procedures and 2 separate ureteral stents placed and removed by URO ELECTRICAL ENGINEERING TECHNOLOGIST Dr. Lunsford. This has caused multiple EMERGENCY DEPARTMENT and hospital visits. Taking Flomax and Urosidiol medication to see if this allows her to pass the 2 remaining kidney stones that are still present. Next appt in May 01 with [facility]. Type 2 diabetes, last labs in November [...] hyperglycemia, without long-term current use of insulin ([facility]) 07/10/2022 Vitamin D deficiency 09/2014 [...] 3, 5, 7, and 9 rizatriptan (MAXALT INTELLIGENCE OPERATIONS SPECIALIST) 5 mg disintegrating tablet Take 1 tablet [...] this visit. ALLERGIES Allergen Reactions Onion Anaphylaxis Tougaloo Oil Hives, Swelling, Itching REVIEW OF SYSTEMS: [...] with hormonal related acne Wheelchair and handicap placard printed for her days of severe pain [...] which included preparing to see the patient, qslg-il-wnsw patient care, completing clinical documentation, obtaining and/or reviewing separately obtained history, performing a medically appropriate examination, and ordering medications, tests, or procedures Xiang Ruiz DO documented in this encounter [facility] 03-06-2024 Telephone encounter Note [facility]-12/25/23 Labs-12/09/23Jul-04/21/24 Lily Marrero LPN [facility] 03-06-2024 Miscellaneous Notes [facility]-12/25/23 Labs-12/09/23Jul-04/21/24 Lily Marrero LPN documented in this encounter [...] [facility]2024 Note HNO ID: [id number] Author: TYREE BRIZUELA MD Service: ? Author Type: Physician Type: Progress Notes Filed: 01/22/2024 15:00 Note Text: [facility] Pain Management Department Date: January 22, [...] warrants attention ALLERGIES Allergen Reactions Onion Anaphylaxis Tougaloo Oil Hives, Swelling, Itching Current Medications: Pain [...] 3, 5, 7, and 9 rizatriptan (MAXALT INTELLIGENCE OPERATIONS SPECIALIST) 5 mg disintegrating tablet Take 1 tablet by mouth as needed for migra (more content not included)... [facility] 01-22-2024 History of Presen t illness Narrative [facility] Pain Management Department Date: January 22, [...] warrants attention ALLERGIES Allergen Reactions Onion Anaphylaxis Tougaloo Oil Hives, Swelling, Itching Current Medications: Pain [...] 3, 5, 7, and 9 rizatriptan (MAXALT INTELLIGENCE OPERATIONS SPECIALIST) 5 mg disintegrating tablet Take 1 tablet [...] hyperglycemia, without long-term current use of insulin ([facility]) 07/10/2022 Vitamin D deficiency 09/2014 [...] diagnostic tests reviewed for today's visit: The [facility] EMR was reviewed during the visit [...] but also diagnostic information that procedures provide. superintendent terminal use of any opioid pain medication is [...] January 22, 2024 cc: Xiang Ruiz [address] [facility] [place] [address] Results of consultation to be transmitted via electronic medical record for those providers who practice within [facility] or with access to [employer] via MD Connect, or via letter. documented in this encounter [facility] 01-16-2024 Miscellaneous Notes PDMP website checked and validated. All prescriptions have been APPROPRIATELY filled. No suspicious activity was identified. 01/16/2024 by Lisa De La O APRN.TABATHA The following approved medication requests have been [...] [facility] 12[facility]27-2023 Note HNO ID: [id number] Author: ?, ?, ? Service: ? Author Type: ? Type: Progress Notes Filed: 12/27/2023 11:32 Note Text: POPULATION HEALTH NAVIGATION OUTREACH Action/FYI [place] Support: Called pt to schedule an appt in Pain Management. Lvm for pt to call [phone] for scheduling. Reason for Outreach Care Gap/HCC or Scheduling Wellness Visits Care Gaps due: Specialty Scheduling Patient Contacted: Unable or unnecessary to reach patient: Left message Navigation Signature: Clarisa Humphrey December 27, 2023 11:31 AM [facility] 12-27-2023 Note Patient Outreach (ROSA TNAV) MARCIE LOYOLA ([id number]) 1995 F CHT Date Time Provider Department 12/27/23 NO PCP NETNAV During your visit today, we recorded the following information about you: Clarisa Humphrey 12/27/2023 11:32 AM Signed POPULATION HEALTH NAVIGATION OUTREACH Action/[facility] Support: Called pt to schedule an appt in Pain Management. Lvm for pt to call [phone] for scheduling. Reason for Outreach Care Gap/HCC [...] 5, 7, and 9 - rizatriptan (MAXALT INTELLIGENCE OPERATIONS SPECIALIST) 5 mg disintegrating tablet Take 1 tablet [...] back pain wi (more content not included)... [facility] 12-25-2023 Note HNO ID: [id number] Author: XIANG RUIZ, DO Service: ? Author [...] NOTE This is a virtual visit using [employer] Video Visit. It required patient-provider interaction for the medical decision making as documented below. I have communicated my name and active licensure. The patient's identity and physical location were verified at the time of this visit. Either the patient or their legal training representative has been informed of the risks [...] (H) 4.3 - 5.6 % Final Comment: [place] [employer] guidelines indicate that patients with HgbA1c in the range 5.7-6.4% are at increased risk for development of diabetes, and intervention by lifestyle modification may be beneficial. HgbA1c greater or equal to 6.5% is considered diagnostic of diabetes. 04/12/2023 7.1 (H) 4.3 - 5.6 % Final Comment: [place] [employer] guidelines indicate that patients with HgbA1c in the range 5.7-6.4% are at increased risk for development of diabetes, and intervention by lifestyle modification may be beneficial. HgbA1c greater or equal to 6.5% is considered diagnostic of diabetes. 01/01/2023 5.9 (H) 4.3 - 5.6 % Final Comment: [place] [employer] guidelines indicate that patients with HgbA1c in the range 5.7-6.4% are at increased risk for development of diabetes, and intervention by lifestyle modification may be beneficial. HgbA1c greater or equal to 6.5% is considered diagnostic of diabetes. 09/12/2022 6.2 (H) 4.3 - 5.6 % Final Comment: [place] [employer] guidelines indicate that patients with HgbA1c in the range 5.7-6.4% are at increased risk for development of diabetes, and intervention by lifestyle modification may be beneficial. HgbA1c greater or equal to 6.5% is considered diagnostic of diabetes. 06/20/2022 6.9 (H) 4.3 - 5.6 % Final Comment: [place] [employer] guidelines indicate that patients with [...] Maternal Uncle Asthm (more content not included)... [facility] 2023 Miscellaneous Notes Pt returned call [...] Provider: XIANG RUIZ Ordering User: ROXANA OCASIO APRN.AUTOMATIC FANCY MACHINE OPERATOR Could you also please let the doctor [...] tomorrow. She says she is going to [facility] ER because her feet are swollen and [...] : NO Protocols used: Blood Pressure - [id number] Images from the original note were not [...] [facility]2023 Note HNO ID: [id number] Author: XIANG RUIZ DO Service: ? Author Type: Physician Type: [...] NOTE This is a virtual visit using [employer] Video Visit. It required patient-provider interaction for the medical decision making as documented below. I have communicated my name and active licensure. The patient's identity and physical location were verified at the time of this visit. Either the patient or their legal training representative has been informed of the risks and benefits of -- and alternatives to -- treatment through a remote evaluation and consents to proceed with the evaluation remotely Marcie Loyola is a 27 year old female seen for follow up Has had 2 recent EMERGENCY DEPARTMENT visits for right sided kidney stones. Seen in Jul 2023 and Sep 2023. Has an upcoming URO ELECTRICAL ENGINEERING TECHNOLOGIST specialist- Dr. Sarah Lunsford to have testing [...] time and knows can't be on this superintendent terminal, no SE with medication. Also would like [...] hyperglycemia, without long-term current use of insulin ([facility]) 07/10/2022 Vitamin D deficiency 09/2014 [...] 3, 5, 7, and 9 rizatriptan (MAXALT INTELLIGENCE OPERATIONS SPECIALIST) 5 mg disin (more content not included)... [facility] 12-04-2023 History of Presen t illness [...] NOTE This is a virtual visit using MyChart Zoom Video Visit. It required patient-provider interaction for the medical decision making as documented below. I have communicated my name and active licensure. The patient's identity and physical location were verified at the time of this visit. Either the patient or their legal training representative has been informed of the risks and benefits of -- and alternatives to -- treatment through a remote evaluation and consents to proceed with the evaluation remotely Marcie Loyola is a 27 year old female seen for follow up Has had 2 recent EMERGENCY DEPARTMENT visits for right sided kidney stones. Seen in Jul 2023 and Sep 2023. Has an upcoming URO ELECTRICAL ENGINEERING TECHNOLOGIST specialist- Dr. Sarah Lunsford to have testing [...] time and knows can't be on this long-term, no SE with medication. Also would like [...] 3, 5, 7, and 9 rizatriptan (MAXALT INTELLIGENCE OPERATIONS SPECIALIST) 5 mg disintegrating tablet Take 1 tablet [...] this visit. ALLERGIES Allergen Reactions Onion Anaphylaxis Tougaloo Oil Hives, Swelling, Itching REVIEW OF SYSTEMS: [...] and other labs Follow up with URO ELECTRICAL ENGINEERING TECHNOLOGIST specialist regarding kidney stones- has multiple right kidney stones. Okay to restart the Lyrica and prn cyclobenzaprine medication medication for chronic LBP for sciatica symptoms Vitamin B12 deficiency- continue supplement HPL, diet controlled. There are no Patient Instructions on file for this visit. I spent a total of 35 minutes on the date of the service which included preparing to see the patient, [id number]-hl-nynz patient care, completing clinical documentation, obtaining and/or [...] NOTE This is a virtual visit using [employer] video visit. It required patient-provider interaction for the medical decision making as documented below. I have communicated my name and active licensure. The patient's identity and physical location were verified at the time of this visit. Either the patient or their legal training representative has been informed of the risks [...] (H) 4.3 - 5.6 % Final Comment: [place] [employer] guidelines indicate that patients with HgbA1c in the range 5.7-6.4% are at increased risk for development of diabetes, and intervention by lifestyle modification may be beneficial. HgbA1c greater or equal to 6.5% is considered diagnostic of diabetes. 01/01/2023 5.9 (H) 4.3 - 5.6 % Final Comment: [place] [employer] guidelines indicate that patients with HgbA1c in the range 5.7-6.4% are at increased risk for development of diabetes, and intervention by lifestyle modification may be beneficial. HgbA1c greater or equal to 6.5% is considered diagnostic of diabetes. 09/12/2022 6.2 (H) 4.3 - 5.6 % Final Comment: [place] [employer] guidelines indicate that patients with HgbA1c in the range 5.7-6.4% are at increased risk for development of diabetes, and intervention by lifestyle modification may be beneficial. HgbA1c greater or equal to 6.5% is considered diagnostic of diabetes. 06/20/2022 6.9 (H) 4.3 - 5.6 % Final Comment: [place] [employer] guidelines indicate that patients with HgbA1c in the range 5.7-6.4% are at increased risk for development of diabetes, and intervention by lifestyle modification may be beneficial. HgbA1c greater or equal to 6.5% is considered diagnostic of diabetes. 10/22/2018 6.1 (H) 4.3 - 5.6 % Final Comment: [place] [employer] guidelines indicate that patients with [...] 13 Has started a gym membership at [employer] to exercise 2-3 days a week for [...] hyperglycemia, without long-term current use of insulin ([facility]) 07/10/2022 Vitamin D deficiency 09/2014 [...] tablet by mouth once daily. rizatriptan (MAXALT INTELLIGENCE OPERATIONS SPECIALIST) 5 mg disintegrating tablet Take 1 tablet [...] this visit. ALLERGIES Allergen Reactions Onion Anaphylaxis Tougaloo Oil Hives, Swelling, Itching REVIEW OF SYSTEMS: [...] hyperglycemia, without long-term current use of insulin ([facility]) (E66.01, Z68.44) Morbid obesity with BMI of 60.0-69.9, adult ([facility]) (E88.81) Dysmetabolic syndrome (E53.8) Vitamin [...] which included preparing to see the patient, essd-di-bevg patient care, completing clinical documentation, obtaining and/or [...] NOTE This is a virtual visit using [employer] video visit. It required patient-provider interaction for the medical decision making as documented below. I have communicated my name and active licensure. The patient's identity and physical location were verified at the time of this visit. Either the patient or their legal training representative has been informed of the risks [...] hyperglycemia, without long-term current use of insulin ([facility]) 07/10/2022 Vitamin D deficiency 09/2014 [...] tablet by mouth once daily. rizatriptan (MAXALT INTELLIGENCE OPERATIONS SPECIALIST) 5 mg disintegrating tablet Take 1 tablet [...] this visit. ALLERGIES Allergen Reactions Onion Anaphylaxis Tougaloo Oil Hives, Swelling, Itching REVIEW OF SYSTEMS: As noted in HPI PHYSICAL EXAMINATION: VIDEO EXAM: (if completed, performed via video enabled technology) GENERAL: alert and appropriate, in no distress, appears anxious, and obese Appropriately dressed ASSESSMENT: (F41.8) Situational anxiety (primary encounter diagnosis) (E11.65) Type 2 diabetes mellitus with hyperglycemia, without long-term current use of insulin ([facility]) (E66.01, Z68.44) Morbid obesity with [...] which included preparing to see the patient, vhqm-by-msub patient care, completing clinical documentation, obtaining and/or [...] further Interventions at this time. MARJORIE Enrique, [employer] [facility] Outpatient [phone] documented in this encounter [facility] 01-15-2021 Note DISCHARGE SUMMARY [place] [id number] Marcie Loyola Date of : 1995 25 [...] to discharge. Pt was discharged 01/15. Marcie Loyola Home Medication Instructions GABRIELA:[id number] Printed on:01/15/21 1432 Medication Information baclofen (LIORESAL) 10 MG tablet [...] Gurpreet Villarreal MD Acute Care Surgery Pager -[phone], Week-6p [place] Pager -[phone], Week 6-6a, weekends Surgical Attending Note Patient [...] with assessment and plan as per resident/physician general assistant with discharge planning and disposition as per above note. Appropriate follow-up to be obtained with all services involved in patient care. Faraz Maravilla MD [facility] [employer] 01-15-2021 Note ACUTE CARE SURGERY P ROGRESS NOTE Subjective: NAEO. Pain well controlled. Off [...] 99 26 15 102 8 0.67 7.8 01/13/217 2.0 01/13/21456 136 3.3 97 28 14 93 8 0.67 7.8 CBC/PT/INR WBC RBC Hgb Hct MCV RDW Plt PT aPTT INR 01/15/21 0617 10.7 3.44 9.4 28.0 81 15.0 462 01/14/21210 10.9 3.48 9.5 28.5 82 15.3 473 01/13/21 0457 10.6 3.66 9.8 30.1 82 15.3 400 WBC/Diff Neutro% Segs% Bands% Lymphs% Monos% Eos% Basos% 01/15/21 0617 69.2 20.1 7.6 1.5 1.7 01/14/21 0211 71.9 18.2 6.6 2.8 0.6 01/13/21 0457 70.2 19.7 6.9 2.8 0.3 Hepatic/Biliary/Pancreas None [...] General Surgery Resident Acute Care Surgery Pager -[phone], Weekdays 6a-6p [place] Pager -[phone], Weekdays 6p-6a, weekends [facility] [employer] [facility] 01-14-2021 Note ACUTE CARE SURGERY P [...] ketorolac 15 mg Every 6 hours * [Nov] albuterol 2.5 mg Q4H RT * enoxaparin [...] 99 26 15 102 8 0.67 7.8 01/13/217 2.0 01/13/21456 136 3.3 97 28 14 93 8 0.67 7.8 01/12/218 2.0 01/12/21257 138 3.9 100 28 14 91 6 0.68 8.1 CBC/PT/INR WBC RBC Hgb Hct MCV RDW Plt PT aPTT INR 01/14/21210 10.9 3.48 9.5 28.5 82 15.3 473 01/13/217 10.6 3.66 9.8 30.1 82 15.3 400 01/12/21257 13.8 4.06 10.9 33.5 83 15.2 466 WBC/Diff Neutro% Segs% Bands% Lymphs% Monos% Eos% Basos% 01/14/21 0211 71.9 18.2 6.6 2.8 0.6 01/13/21 0457 70.2 19.7 6.9 2.8 0.3 01/12/21 0258 73.9 16.1 8.2 1.4 0.4 Hepatic/Biliary/Pancreas None [...] Guevara MD General Surgery, PGY-3 ACS Pager [phone], Weekdays 6a-6p [place] [phone], Weekdays 6p-6a, weekends ACUTE CARE SURGERY FELLOW [...] Critical Care Fellow Acute Care Surgery [facility] 01-13-2021 Note OCCUPATIONAL THERAPY INITIAL [...] Patient Subjective: I could really use that contact finger assembler. Patient Identified Goal(s):To return home Home Living Situation COMPUTER SPECIALIST Status: -Independent with functional mobility tasks, ambulation [...] Dep Max Mod Min CG CS DS WV I Set-Up Comment Feeding x Grooming/Hygiene x seated Bathing:UB x Simulated sponge bathing Bathing:LB x Simulated sponge bathing, with use of long handled sponge Dressing:UB x anticipated to don shirt Dressing: LB x Donned/doffed socks, seated EOB Toileting x anticipated Transfers/Bed Mobility: Assistance Level Dep Max Mod Min CG CS DS WV I Set-Up Comment Toilet Transfers x anticipated Bed Transfers x Sit to stand from EOB Bed Mobility x Supine to sit Endurance for Self Care: Impaired Static Sitting Balance: WFL Dynamic Sitting Balance: WFL UE Motor: BUE AROM and strength WFL Vision/Perception: WFL Cognition: AOx3, WNL Patient/Family Education: educated pt on use of long handled sponge, contact finger assembler, and bathroom otto want to assist with ADL performance Patient up in bed with call light in reach. ??? DME: recommend contact finger assembler, LHS, bathroom otto wand ??? 6 Clicks [...] Guard Assist/Supervision 4 - Non = Modified [place]/Independent ASSESSMENT: Patient is functionally appropriate for discharge [...] NA = Not Assessed, I = Independent, WV = Modified Independent, Sup = Supervised, Set up = Physical Assistance f (more content not included)... [facility] 01-13-2021 Note PHYSICAL THERAPY PRO NAYAN [...] Dep Max Mod Min CG CS DS WV I Comment Sit to/from stand x From [...] With Patients permission ordered wheeled walker via Xeebel Order. If any questions contact [facility] DME Provider at [phone]. 6 Clicks Basic Mobility PT 01/12/2021 Difficulty [...] per Initial Evaluation Marycruz Servin KEMI Beeper #[phone] NA = Not Assessed, I = Independent, WV = Modified Independent, Sup = Supervised, Set up = Physical Assistance for Set-up Only, Min = Minimal Assistance, Mod = Moderate Assistance, Max = Maximal assistance; Dep = Dependent; AROM = Active Range of Motion; PROM = Passive Range of Motion; MMT = Manual Muscle Test [facility] 01-13-2021 Note ACUTE CARE SURGERY P [...] Gap Glu BUN Cr Ca Mg PO4 01/13/217 2.0 01/13/21456 136 3.3 97 28 14 93 8 0.67 7.8 01/12/21257 2.0 01/12/21257 138 3.9 100 28 14 91 6 0.68 8.1 01/11/21242 136 3.5 101 23 16 123 8 0.77 7.7 01/10/21 08 131 3.8 Comment: Hemolysis present 97 24 14 112 7 0.64 8.1 CBC/PT/INR WBC RBC Hgb Hct MCV RDW Plt PT aPTT INR 01/12/21257 13.8 4.06 10.9 33.5 83 15.2 466 01/11/21243 17.1 4.33 11.4 35.6 82 15.2 442 01/11/21242 38 01/11/21 024 1.56 01/10/21809 18.8 4.45 11.8 36.5 82 15.5 450 WBC/Diff Neutro% Segs% Bands% Lymphs% Monos% Eos% Basos% 01/12/21257 73.9 16.1 8.2 1.4 0.4 01/10/21 0810 [...] Guevara MD General Surgery, PGY-3 ACS Pager [phone], Weekdays 6a-6p [place] [phone], Weekdays 6p-6a, weekends ACUTE CARE SURGERY FELLOW [...] Critical Care Fellow Acute Care Surgery [facility] 01-12-2021 Note PHYSICAL THERAPY ACU [...] moving. 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 If any questions contact [facility] DME Provider at [phone]. 6 Clicks Basic Mobility PT 01/12/2021 Difficulty [...] will increas (more content not included)... [facility] 01-12-2021 Note ACUTE CARE SURGERY P [...] Gap Glu BUN Cr Ca Mg PO4 01/12/218 2.0 01/12/21257 138 3.9 100 28 14 91 6 0.68 8.1 01/11/21242 136 3.5 101 23 16 123 8 0.77 7.7 01/10/21 0810 131 3.8 Comment: Hemolysis present 97 24 14 112 7 0.64 8.1 CBC/PT/INR WBC RBC Hgb Hct MCV RDW Plt PT aPTT INR 01/12/21257 13.8 4.06 10.9 33.5 83 15.2 466 01/11/21243 17.1 4.33 11.4 35.6 82 15.2 442 01/11/21242 38 01/11/21242 1.56 01/10/21 0810 18.8 4.45 11.8 36.5 82 15.5 450 WBC/Diff Neutro% Segs% Bands% Lymphs% Monos% Eos% Basos% 01/12/21257 73.9 16.1 8.2 1.4 0.4 01/10/21 0810 [...] General Surgery Resident Acute Care Surgery Pager [phone], 6a-6p [place] Pager [phone], Week 6p-6a, weekends [facility] 01-11-2021 Note ACUTE CARE SURGERY P EL NOTE Subjective: No acute events overnight. Patient [...] Guevara MD General Surgery, PGY-3 ACS Pager [phone], Weekdays 6a-6p [place] [phone], 6p-6a, weekends ACUTE CARE SURGERY FELLOW NOTE [...] Critical Care Fellow [facility] Evaluation note Diagnosis Situational anxiety- Primary Other anxiety states Type 2 diabetes mellitus with hyperglycemia, without long-term current use of insulin (HCC) Morbid obesity with BMI of 60.0-69.9, adult (HCC) Morbid obesity Left sided sciatica Sciatica Chronic left-sided low back pain with left-sided sciatica Dysmetabolic syndrome Dysmetabolic Syndrome X [facility] Diagnosis Type 2 diabetes mellitus [...] mixed Mixed hyperlipidemia [facility] Left sided sciatica Sciatica Chronic left-sided low back pain with left-sided sciatica [facility] Diagnosis Cannabis use, unspecified, uncomplicated [facility] Diagnosis Leg skin lesion, right Unspecified disorder of skin and subcutaneous tissue Skin lesion of right leg Unspecified disorder of skin and subcutaneous tissue [facility] CRP elevated- Primary Elevated [...] other allergic trigger [facility] Diagnosis Type 2 diabetes mellitus with hyperglycemia, without long-term current use of insulin ([facility]) [facility] Diagnosis Back muscle spasm Other symptoms referable to back [facility] Diagnosis Herpes simplex Herpes simplex [...] left-sided sciatica- Primary [facility] Diagnosis Lumbar degenerative disc disease- Primary Degeneration of lumbar or lumbosacral intervertebral disc Chronic left-sided low back pain with left-sided sciatica [facility] Diagnosis Type 2 diabetes mellitus [...] vulgaris Other acne [facility] Diagnosis Type 2 diabetes mellitus with hyperglycemia, without long-term current use of insulin (HCC)- Primary [facility] Diagnosis Back muscle spasm Other symptoms referable to back [facility] Diagnosis Bilateral chronic knee pain- Primary Pain in joint, lower leg Morbid obesity with BMI of 60.0-69.9, adult (HCC) Morbid obesity [facility] Diagnosis Acute pain of right knee documented in this encounter [facility] for referral (narrative)* Diagnostic Procedure Only (Routine) - Closed Specialty Diagnoses / Procedures Referred By Contac t Referred To Contact XR IMAGING Diagnoses Acute pain of right knee Procedures XR KNEE GENERAL 4V AP BOTH/PA BOTH/LAT/MERC RIGHT RADIOLOGIC EXAM KNEE COMPLETE 4/MORE VIEWS Xiang Ruiz, DO [address] [place] [address] [place] [address] Referral ID Status Reason Start Date Expiration Date V isits Requested Visits Authorized [id number] Closed Auto-Generate d Referral 06/13/2022 07/13/2023 1 1 [facility] for visit Narrative* Diagnostic Procedure Only (Routine) - Closed Specialty Diagnoses / Procedures Referred By Contac t Referred To Contact XR IMAGING Diagnoses Acute pain of right knee Procedures XR KNEE GENERAL 4V AP BOTH/PA BOTH/LAT/MERC RIGHT RADIOLOGIC EXAM KNEE COMPLETE 4/MORE VIEWS Xiang Ruiz, DO [address] [place] [address] [place] [address] Referral ID Status Reason Start Date Expiration Date V isits Requested Visits Authorized [id number] Closed Auto-Generate d Referral 06/13/2022 07/13/2023 1 [...] Referral Specialty Diagnoses / Procedures Referred By Contac t Referred To Contact Xiang Ruiz DO [address] [place] [address] Referral ID Status Reason Start Date Expiration Date V isits Requested Visits Authorized [id number] Authorized 04/21/2024 04/20/2025 1 1 Additional Source Comments INFORMATION SOURCE (unrecogn ized section and content) DATE CREATED AUTHOR 03/24/2019 [facility] DATE CREATED AUTHOR AUTHOR'S ORGANIZ ATION 04/12/2019 [facility] ([place]) DATE CREATED AUTHOR AUTHOR'S ORGANIZ ATION 05/19/2019 [facility] DATE CREATED AUTHOR AUTHOR'S ORGANIZ ATION 01/10/2021 [facility] DATE CREATED AUTHOR AUTHOR'S ORGANIZ ATION 11/28/2021 [facility] DATE CREATED AUTHOR AUTHOR'S ORGANIZ ATION 02/08/2024 [facility] DATE CREATED AUTHOR AUTHOR'S ORGANIZ ATION 07/01/2024 [facility] Source Comments (unrecognize d section and [...] Specialty Diagnoses / Procedures Referred By Cristiano t Referred To Contact [facility] Diagnoses Chronic left-sided low back pain with left-sided sciatica Procedures CONSULT TO PAIN MGT OFFICE/OUTPATIENT NEW HIGH MDM 60 MINUTES Xiang Ruiz DO [address] [place] [address] [facility] [place] [address] [place] [address] Referral ID Status Reason Start Date Expiration Date V isits Requested Visits Authorized [id number] Closed PCP Requested Referral 12/25/2023 12/24/2024 1 1 Reason Onset Date Comments Refill Request 03/05/2024 Reason Comments Follow Up Reason Onset Date Comments Medication Information 04/22/2024 Reason Comments Medication Problem Reason Onset Date Comments Refill Request 05/12/2024 Reason Comments Orders Reason Onset Date Comments Refill Request 06/15/2024 Care Teams (unrecognized sec tion and content) Consultant Dietitian Relationship Specialty Start Date End Date Xiang Ruiz DO [address] [place] [address] PCP - General Family Medicine 10/19/14 Consultant Dietitian Relationship Specialty Start Date End Date Xiang Ruiz DO [address] [place], [place] [address] PCP - General Family Medicine 10/19/14 Consultant Dietitian Relationship Specialty Start Date End Date Xiang Ruiz DO [address] [place] [address] PCP - General Family Medicine 10/19/14 Consultant Dietitian Relationship Specialty Start Date End Date Xiang Ruiz DO [address] [place] [address] PCP - General Family Medicine 10/19/14 Consultant Dietitian Relationship Specialty Start Date End Date [address] [place] [address] PCP - General 01/10/21 Consultant Dietitian Relationship Specialty Start Date End Date Xiang Ruiz DO [address] [place] [address] PCP - General Family Medicine 10/19/14 Consultant Dietitian Relationship Specialty Start Date End Date Xiang Ruiz DO [address] [place] [address] PCP - General Family Medicine 10/19/14 Consultant Dietitian Relationship Specialty Start Date End Date Xiang Ruiz DO [address] [place] [address] PCP - General Family Medicine 10/19/14 Consultant Dietitian Relationship Specialty Start Date End Date Xiang Ruiz DO [address] [place] [address] PCP - General Family Medicine 10/19/14 Consultant Dietitian Relationship Specialty Start Date End Date Xiang Ruiz DO [address] [place] [address] PCP - General Family Medicine 10/19/14 Consultant Dietitian Relationship Specialty Start Date End Date Xiang Ruiz DO [address] [place] [address] PCP - General Family Medicine 10/19/14 Consultant Dietitian Relationship Specialty Start Date End Date Xiang Ruiz, DO [address] [place] [address] PCP - General Family Medicine 10/19/14 Consultant Dietitian Relationship Specialty Start Date End Date Xiang Ruiz DO [address] [place] [address] PCP - General Family Medicine 10/19/14 Consultant Dietitian Relationship Specialty Start Date End Date Xiang Ruiz, [address] [place] [address] PCP - General Family Medicine 10/19/14 Consultant Dietitian Relationship Specialty Start Date End Date Xiang Ruiz DO [address] [place] [address] PCP - General Family Medicine 10/19/14 Consultant Dietitian Relationship Specialty Start Date End Date Xiang Ruiz DO [address] [place] [address] PCP - General Family Medicine 10/19/14 Consultant Dietitian Relationship Specialty Start Date End Date Xiang Ruiz DO [address] [place] [address] PCP - General Family Medicine 10/19/14 Consultant Dietitian Relationship Specialty Start Date End Date Xiang Ruiz DO [address] [place] [address] PCP - General Family Medicine 10/19/14 Consultant Dietitian Relationship Specialty Start Date End Date Xiang Ruiz DO [address] [place] [address] PCP - General Family Medicine 10/19/14 Consultant Dietitian Relationship Specialty Start Date End Date Xiang Ruiz DO [address] [place] [address] PCP - General Family Medicine 10/19/14 FOR [...] BE BASED ON THE PRIMARY CLINICAL RECORDS. [facility]. provides no warranty or guarantee of the accuracy or completeness of information in this document.
--- NOTE | 2024-07-26 05:32 | ED.VIS.BACK ---
HPI History of Present Illness Chief Complaint: Back Informant: patient Narrative Narrative: History of right sided sciatica worsening pain over the past week denies trauma. Denies loss of bowel or bladder control. Pain down her legs. She is on Lyrica from her PCP 3 times a day. She is on cyclobenzaprine. She is a diabetic. She states she was seen yesterday in the ED treated with morphine and Toradol. She is given prescription for Percocet and Valium. She has been using this today with no relief. She reports has seen Dr. Neal in the past with injections. She was referred to Dr. Diana, spine surgery [facility], additional injections last time September states no relief. She currently does not follow pain management. Prior similar symptoms: Yes and With Prior Back Pain PFSH PFS Medical History Kidney stone Contraceptive management Wears glasses Marijuana use Alcohol use Arthritis Low iron Fatty liver High cholesterol Easy bruising Back pain Syncope Dietary restriction Heartburn Non-smoker Shortness of breath on exertion Leg cramps History of pain when walking History of edema History of echocardiogram Morbid obesity Diabetes mellitus, type 2 Asthma Migraines Bilateral ovarian cysts PCOS (polycystic ovarian syndrome) Anxiety and depression Home Medications ?Medication ?Instructions ?Recorded ?Last Taken ?Type albuterol sulfate 90 mcg/actuation 2 puff inhalation Q6H PRN Sob &/Or 05/08/18 Unknown History breath activated powder inhaler Wheezing meloxicam 15 mg tablet 15 mg PO DAILY 08/25/23 05/27/24 History metformin 1,000 mg tablet 2,000 mg PO BID 08/25/23 05/27/24 History cholecalciferol (vitamin D3) 1,250 50,000 unit PO FR 12/04/23 04/17/24 History mcg (50,000 unit) capsule cyclobenzaprine 10 mg tablet 10 mg PO TID PRN muscle spasm 12/04/23 05/27/24 History loratadine 10 mg tablet 10 mg PO Q24H 12/04/23 05/27/24 History pregabalin 75 mg capsule 75 mg PO TID 12/04/23 05/27/24 History losartan 100 1 tab PO DAILY 02/03/24 05/27/24 History mg-hydrochlorothiazide 12.5 mg tablet metformin 500 mg tablet 500 mg PO QPM 02/03/24 05/27/24 History cyanocobalamin (vitamin B-12) 1,000 mcg PO DAILY 03/08/24 05/27/24 History 1,000 mcg tablet (Vitamin B-12) clindamycin phosphate 1 % lotion 1 applic topical DAILY 04/23/24 05/28/24 History liraglutide 0.6 mg/0.1 mL (18 mg/3 0.6 mg subcut DAILY 04/23/24 05/20/24 History mL) subcutaneous pen injector (Victoza 3-Festus) minoxidil 2.5 mg tablet 2.5 mg PO DAILY 04/23/24 05/27/24 History ondansetron 4 mg disintegrating 4 mg PO Q8H PRN Nausea 04/23/24 Unknown History tablet valacyclovir 500 mg tablet 500 mg PO DAILY 04/23/24 05/27/24 History diazepam 5 mg tablet (Valium) 5 mg PO TID PRN muscle spasm 5 07/25/24 Unknown Rx days #15 tabs oxycodone-acetaminophen 5 mg-325 1 tab PO Q6H PRN pain 3 days #12 07/25/24 Unknown Rx mg tablet (Percocet) tabs Allergy/AdvReac Type Severity Reaction Status Date / Time hydralazine AdvReac Mild Other Verified 07/26/24 04:27 Family History Mother Diabetes Kidney disease Surgical History Hx of cystoscopy History of cholecystectomy S/P laparoscopic procedure History of tonsillectomy corrective eye surgery History of ear, nose, and throat (ENT) surgery Social History household members: significant other Smoking Status: Never smoker alcohol intake: never substance use type: marijuana and other details: Edible cannabis OTC twice weekly. caffeine: No what type of physical activity do you participate in: walking seatbelt use: always do you feel safe at home: Yes additional social history: [place] Patient is unemployed ROS ROS ED Constitutional Constitutional ED: Denies chills, fever(s) or sweats Eyes Eyes: Denies change in vision ENT ENT ED: Denies dysphagia or sore throat Cardiovascular Cardiovascular: Denies chest pain, leg edema, palpitations or racing heartbeat Respiratory/Chest Respiratory/Chest: Denies cough, dyspnea or dyspnea on exertion Gastrointestinal Gastrointestinal: Denies abdominal pain, diarrhea, nausea or vomiting Genitourinary Genitourinary ED: Denies dysuria, hematuria or urinary frequency Musculoskeletal Musculoskeletal: Reports back pain; Denies extremity pain or neck pain Integumentary Denies rash or wounds Neurologic Neurologic: Denies headache(s), paresthesias or weakness EXAM Physical Exam Const Vital Signs: 07/26/24 04:24 07/26/24 05:54 Temperature 97.8 F 98.1 F Temperature Source Oral Pulse Rate 119 H 99 Respiratory Rate 20 H 16 Blood Pressure 193/109 H 154/84 H Blood Pressure Mean 137 107 Pulse Ox 96 99 Positive well nourished and well developed General Appearance ED: well developed and NAD HEENT Reports moist mucous membranes normocephalic and atraumatic Eyes EOMs intact bilaterally and conjunctivae normal General Eye ED: Yes normal appearance of both eyes Neck no lymphadenopathy and supple General: Negative for tenderness Chest Wall Chest: Negative for tenderness Resp normal respiratory effort and normal air movement Effort and Inspection: symmetric chest movement; Negative for respiratory distress Cardio regular rhythm and no murmurs Rate: tachycardic Peripheral Pulses: pulses 2+ throughout GI normal to inspection, nondistended, normoactive bowel sounds and non-tender Palpation: Negative for guarding or rebound tenderness present Back/Spine no CVA tenderness Back/Spine Narrative: Tender to palpation right paralumbar straight leg elicit pain in the back however not down the legs. 1+ patellar reflex bilaterally. Extremity normal to inspection General Extremety ED: Negative for edema or tenderness General Extremity: Negative for edema Neuro oriented x3 and no sensory deficits noted Sensorium / Orientation: awake and alert Skin no rashes or lesions noted and no wounds MDM MDM MDM Narrative Medical decision making narrative: Interventions / MDM: Differential diagnosis: Acute on chronic back pain, sciatica Diagnosis considered but do not suspect: No cauda equina symptoms. My EKG interpretation: N/A Imaging independently reviewed and interpreted by myself: N/A External documents reviewed: ED visit yesterday, 5-day prescription of Valium 3-day prescription of Percocet. Test considered but not ordered:N/A ED course: Patient acute flare of her back pain. Seen yesterday. No fevers, no history of IV drug use. She is a diabetic therefore steroids would not be an option at this time. Limited on treatment options for the patient. Discussed with her this. Discussed we will give injection of Toradol and morphine. She has muscle relaxers and the pain medicines, she is on Lyrica. Her creatinine was normal on previous labs. Will give her prescription for NSAIDs. Elevated blood pressure likely situational. No hypertensive emergency symptoms. Follow-up with her PCP recheck of blood pressure. She is on blood pressure medicines. I will refer her back to pain management for further outpatient evaluation. Re-evaluation: stable Disposition discussed with patient/family/significant other: Case discussed with consulting clinician: N/A This note was generated with [employer] dictation software. It may contain incorrect words, spelling, and punctuation that were not noted in checking the note before signing. Discharge Plan Triage Chief Complaint: Back ED Provider: Davin Ng Dx/Rx/DC Orders Clinical Impression: Sciatica, Low back pain, Elevated blood pressure reading in office with diagnosis of hypertension Instructions: ED Sciatica Prescriptions: No Action albuterol sulfate 90 mcg/actuation aerosol powdr breath activated 2 puff INHALATION Q6H PRN (Reason: Sob &/Or Wheezing) meloxicam 15 mg tablet 15 mg PO DAILY metformin 1,000 mg tablet 2,000 mg PO BID cyanocobalamin (vitamin B-12) [Vitamin B-12] 1,000 mcg tablet 1,000 mcg PO DAILY cholecalciferol (vitamin D3) 1,250 mcg (50,000 unit) capsule 50,000 unit PO FR Patient Comments: take 1 capsule by mouth every week loratadine 10 mg tablet 10 mg PO Q24H pregabalin 75 mg capsule 75 mg PO TID cyclobenzaprine 10 mg tablet 10 mg PO TID PRN (Reason: muscle spasm) metformin 500 mg tablet 500 mg PO QPM losartan-hydrochlorothiazide 100-12.5 mg tablet 1 tab PO DAILY clindamycin phosphate 1 % lotion 1 applic topical DAILY liraglutide [Victoza 3-Festus] 0.6 mg/0.1 mL (18 mg/3 mL) pen injector 0.6 mg subcut DAILY valacyclovir 500 mg tablet 500 mg PO DAILY minoxidil 2.5 mg tablet 2.5 mg PO DAILY ondansetron 4 mg tablet,disintegrating 4 mg PO Q8H PRN (Reason: Nausea) diazepam [Valium] 5 mg tablet 5 mg PO TID PRN (Reason: muscle spasm) 5 Days Qty: 15 0RF oxycodone-acetaminophen [Percocet] 5-325 mg tablet 1 tab PO Q6H PRN (Reason: pain) 3 Days Qty: 12 0RF Primary Care Provider: Xiang Ruiz Referrals: Dante Neal DO [Non-Staff] - 3-5 Days Xiang Ruiz DO [Primary Care Provider] - Activity Restrictions/Additional Instructions: You are referred back to pain management to assist with your sciatica symptoms. Follow-up with your PCP recheck your blood pressure. Print Language: Djiboutian Disposition Disposition: Home, Self Care Discharge Date/Time: 07/26/24 06:01
[2024-07-26] MEDS: Ketorolac 30 MG/ML Syringe IM (05:41)
[2024-07-26] MEDS: Morphine 4 MG/ML Syringe IM (05:42)
[2024-07-26 05:54] VITALS: BP 154/84; PULSE 99; RESP 16; TEMP 36.7; O2SAT 99
== END 2024-07-26 06:01 | disposition home or self-care (01) ==
PROVIDERS: Emergency Provider Emergency Medicine; PCP Student in an Organized Health Care Education/Training Program; Visit Provider Emergency Medicine
DX: M54.40 Lumbago with sciatica, unspecified side (principal); E11.9 Type 2 diabetes mellitus without complications; E78.00 Pure hypercholesterolemia, unspecified; I10 Essential (primary) hypertension; Z79.84 Long term (current) use of oral hypoglycemic drugs; Z79.899 Other long term (current) drug therapy; Z79.85 Long-term (current) use of injectable non-insulin antidiabetic drugs; Z90.49 Acquired absence of other specified parts of digestive tract
CPT/HCPCS: 96372; 99282

== ENCOUNTER 2024-09-28 12:45 | Emergency (ER) | payer MEDICAID, SELFPAY ==
[2024-09-28 12:46] VITALS: BP 168/115; PULSE 99; RESP 18; TEMP 36.1; O2SAT 98; BMI 59.3
--- NOTE | 2024-09-28 15:26 | VDLE_ITS ---
Reason For Study: Pain RIGHT GSV is normal. CFV is compressible, spontaneous, phasic, competent and demonstrates normal augmentation. FV is compressible, spontaneous, phasic, competent and demonstrates normal augmentation. POP V is compressible, spontaneous, phasic, competent and demonstrates normal augmentation. T/P Trunk is compressible. PTV is compressible. RT PerV is compressible. Procedure This is a venous duplex using B-mode, color flow and spectral Doppler. Exam performed portable in ED. A preliminary report was called and/or faxed to ED RN. VL/Venous Duplex US, Unilateral Interpretation Summary Deep veins of the right lower extremity are patent and compressible segmentally . There is no evidence of right lower extremity deep vein thrombosis. The right great sapheno us vein appears patent and compressible segmentally. Ordering Physician: Fritz Batista Referring Physician: Joseph Otoole DO Performed By: Gracia Perales RVT and Student
--- NOTE | 2024-09-28 15:30 | EX.ED.DYSGE1 ---
HPI History of Present Illness Chief Complaint: Lower Extremity Injury Narrative Narrative: Patient is a 28-year-old female with a BMI of 59.4, hypercholesteremia, asthma, type 2 diabetes, PCOS who presents to the emergency department chief complaint of right leg pain and swelling. She states that on the of this month she noted that she was in the hospital with her mom and did not move for a significant mount time over the course of 3 days. States that she noted that by the end of that she had pain in her right lower extremity as well as swelling. States that she talked with her aunt and called the nurse line and states that they feel that she should have her leg looked at and make sure she does not have a blood clot. Patient denies any history of blood clots denies any recent travel history. Patient denies any injury or trauma to the leg. [facility] Medical History Kidney stone Contraceptive management Wears glasses Marijuana use Alcohol use Arthritis Low iron Fatty liver High cholesterol Easy bruising Back pain Syncope Dietary restriction Heartburn Non-smoker Shortness of breath on exertion Leg cramps History of pain when walking History of edema History of echocardiogram Morbid obesity Diabetes mellitus, type 2 Asthma Migraines Bilateral ovarian cysts PCOS (polycystic ovarian syndrome) Anxiety and depression Home Medications ?Medication ?Instructions ?Recorded ?Last Taken ?Type albuterol sulfate 90 mcg/actuation 2 puff inhalation Q6H PRN Sob &/Or 05/08/18 Unknown History breath activated powder inhaler Wheezing meloxicam 15 mg tablet 15 mg PO DAILY 08/25/23 05/27/24 History metformin 1,000 mg tablet 2,000 mg PO BID 08/25/23 05/27/24 History cholecalciferol (vitamin D3) 1,250 50,000 unit PO FR 12/04/23 04/17/24 History mcg (50,000 unit) capsule cyclobenzaprine 10 mg tablet 10 mg PO TID PRN muscle spasm 12/04/23 05/27/24 History loratadine 10 mg tablet 10 mg PO Q24H 12/04/23 05/27/24 History pregabalin 75 mg capsule 75 mg PO TID 12/04/23 05/27/24 History losartan 100 1 tab PO DAILY 02/03/24 05/27/24 History mg-hydrochlorothiazide 12.5 mg tablet metformin 500 mg tablet 500 mg PO QPM 02/03/24 05/27/24 History cyanocobalamin (vitamin B-12) 1,000 mcg PO DAILY 03/08/24 05/27/24 History 1,000 mcg tablet (Vitamin B-12) clindamycin phosphate 1 % lotion 1 applic topical DAILY 04/23/24 05/28/24 History liraglutide 0.6 mg/0.1 mL (18 mg/3 0.6 mg subcut DAILY 04/23/24 05/20/24 History mL) subcutaneous pen injector (Victoza 3-Festus) minoxidil 2.5 mg tablet 2.5 mg PO DAILY 04/23/24 05/27/24 History ondansetron 4 mg disintegrating 4 mg PO Q8H PRN Nausea 04/23/24 Unknown History tablet valacyclovir 500 mg tablet 500 mg PO DAILY 04/23/24 05/27/24 History diazepam 5 mg tablet (Valium) 5 mg PO TID PRN muscle spasm 5 07/25/24 Unknown Rx days #15 tabs oxycodone-acetaminophen 5 mg-325 1 tab PO Q6H PRN pain 3 days #12 07/25/24 Unknown Rx mg tablet (Percocet) tabs Allergy/AdvReac Type Severity Reaction Status Date / Time hydralazine AdvReac Mild Other Verified 09/28/24 12:46 Family History Mother Diabetes Kidney disease Surgical History Hx of cystoscopy History of cholecystectomy S/P laparoscopic procedure History of tonsillectomy corrective eye surgery History of ear, nose, and throat (ENT) surgery Social History household members: significant other Smoking Status: Never smoker alcohol intake: never substance use type: marijuana and other details: Edible cannabis OTC twice weekly. caffeine: No what type of physical activity do you participate in: walking seatbelt use: always do you feel safe at home: Yes additional social history: [place] Patient is unemployed ROS ROS ED ROS Narrative Constitutional: Denies any fevers, chills, headaches, lightness, dizziness Eyes: Denies change in vision double vision blurry vision Cardiovascular: Denies chest pain Respiratory: Denies shortness of breath or wheezing Abdomen: Denies abdominal pain nausea vomit diarrhea Neurological: Denies numbness, weakness, tingling Musculoskeletal: Denies back pain Skin: Denies rashes or lesions EXAM Physical Exam Narrative Exam Narrative: General: Patient was lying in bed rest comfortably did not appear to be in acute distress Head: Atraumatic, normocephalic Cardiovascular: Regular rate and rhythm no murmurs gallops rubs noted Respiratory: Clear to auscultation bilaterally Musculoskeletal: Right lower extremity soft and compressible, mild tenderness to palpation in the calf region Extremities: DP pulses +2/4 in the bilateral lower extremities, +5/5 strength noted in the bilateral upper and lower extremities Neurological: Patient following commands knew that she was at [facility] year is 2023 Skin: Warm, dry, intact Const Vital Signs: 09/28/24 12:46 Temperature 96.9 F L Temperature Source Temporal Pulse Rate 99 Respiratory Rate 18 Blood Pressure 168/115 H Blood Pressure Mean 132 Pulse Ox 98 Oxygen Delivery Method Room Air MDM MDM MDM Narrative Medical decision making narrative: Patient is a 28-year-old female who presented to the emergency department for concern of a DVT in her right lower extremity. Patient will have a workup performed here on the differential diagnosis includes but not limited to DVT, musculoskeletal strain. Once workup is obtained reviewed she will be reevaluated. Patient's venous duplex of her right lower extremity was negative for DVT. Discussed the results with the patient and she would like to go home at this point time. She was advised to follow-up with her primary care physician and return with worsening symptoms or other concerns. She is agreeable this plan. She was advised to rotate Tylenol and ibuprofen [id number] for pain control. All question concerns answered she is discharged home in stable condition. Discharge Plan Triage Chief Complaint: Lower Extremity Injury ED Provider: Fritz Batista Dx/Rx/DC Orders Clinical Impression: Leg pain, right Prescriptions: No Action albuterol sulfate 90 mcg/actuation aerosol powdr breath activated 2 puff INHALATION Q6H PRN (Reason: Sob &/Or Wheezing) meloxicam 15 mg tablet 15 mg PO DAILY metformin 1,000 mg tablet 2,000 mg PO BID cyanocobalamin (vitamin B-12) [Vitamin B-12] 1,000 mcg tablet 1,000 mcg PO DAILY cholecalciferol (vitamin D3) 1,250 mcg (50,000 unit) capsule 50,000 unit PO FR Patient Comments: take 1 capsule by mouth every week loratadine 10 mg tablet 10 mg PO Q24H pregabalin 75 mg capsule 75 mg PO TID cyclobenzaprine 10 mg tablet 10 mg PO TID PRN (Reason: muscle spasm) metformin 500 mg tablet 500 mg PO QPM losartan-hydrochlorothiazide 100-12.5 mg tablet 1 tab PO DAILY clindamycin phosphate 1 % lotion 1 applic topical DAILY liraglutide [Victoza 3-Festus] 0.6 mg/0.1 mL (18 mg/3 mL) pen injector 0.6 mg subcut DAILY valacyclovir 500 mg tablet 500 mg PO DAILY minoxidil 2.5 mg tablet 2.5 mg PO DAILY ondansetron 4 mg tablet,disintegrating 4 mg PO Q8H PRN (Reason: Nausea) diazepam [Valium] 5 mg tablet 5 mg PO TID PRN (Reason: muscle spasm) 5 Days Qty: 15 0RF oxycodone-acetaminophen [Percocet] 5-325 mg tablet 1 tab PO Q6H PRN (Reason: pain) 3 Days Qty: 12 0RF Primary Care Provider: Xiang Ruiz Referrals: Xiang Ruiz DO [Primary Care Provider] - Activity Restrictions/Additional Instructions: Rotate Tylenol and ibuprofen [id number] for pain control. Follow-up with your doctor in the outpatient setting. Return with worsening symptoms or any other concerns. The ultrasound here today did not show evidence of a blood clot. Print Language: [place] Verdean Disposition Disposition: Home, Self Care
== END 2024-09-28 16:55 | disposition home or self-care (01) ==
PROVIDERS: Emergency Provider Emergency Medicine; PCP Student in an Organized Health Care Education/Training Program; Visit Provider Emergency Medicine
DX: M79.604 Pain in right leg (principal); E11.9 Type 2 diabetes mellitus without complications; E78.00 Pure hypercholesterolemia, unspecified; Z79.84 Long term (current) use of oral hypoglycemic drugs; Z79.85 Long-term (current) use of injectable non-insulin antidiabetic drugs; Z90.49 Acquired absence of other specified parts of digestive tract
CPT/HCPCS: 93971; 99282

== ENCOUNTER 2025-01-09 00:45 | Emergency (ER) | payer MEDICAID, SELFPAY ==
[2025-01-09 00:45] VITALS: BP 156/109; PULSE 116; RESP 20; TEMP 36.8; O2SAT 99; BMI 58.7
--- NOTE | 2025-01-09 00:52 | EX.ED.DYSGE1 ---
HPI History of Present Illness Chief Complaint: Abd Pain [facility] Medical History Kidney stone Contraceptive management Wears glasses Marijuana use Alcohol use Arthritis Low iron Fatty liver High cholesterol Easy bruising Back pain Syncope Dietary restriction Heartburn Non-smoker Shortness of breath on exertion Leg cramps History of pain when walking History of edema History of echocardiogram Morbid obesity Diabetes mellitus, type 2 Asthma Migraines Bilateral ovarian cysts PCOS (polycystic ovarian syndrome) Anxiety and depression Home Medications ?Medication ?Instructions ?Recorded ?Last Taken ?Type albuterol sulfate 90 mcg/actuation 2 puff inhalation Q6H PRN Sob &/Or 05/08/18 Unknown History breath activated powder inhaler Wheezing meloxicam 15 mg tablet 15 mg PO DAILY 08/25/23 05/27/24 History metformin 1,000 mg tablet 2,000 mg PO BID 08/25/23 05/27/24 History cholecalciferol (vitamin D3) 1,250 50,000 unit PO FR 12/04/23 04/17/24 History mcg (50,000 unit) capsule cyclobenzaprine 10 mg tablet 10 mg PO TID PRN muscle spasm 12/04/23 05/27/24 History loratadine 10 mg tablet 10 mg PO Q24H 12/04/23 05/27/24 History pregabalin 75 mg capsule 75 mg PO TID 12/04/23 05/27/24 History losartan 100 1 tab PO DAILY 02/03/24 05/27/24 History mg-hydrochlorothiazide 12.5 mg tablet metformin 500 mg tablet 500 mg PO QPM 02/03/24 05/27/24 History cyanocobalamin (vitamin B-12) 1,000 mcg PO DAILY 03/08/24 05/27/24 History 1,000 mcg tablet (Vitamin B-12) clindamycin phosphate 1 % lotion 1 applic topical DAILY 04/23/24 05/28/24 History liraglutide 0.6 mg/0.1 mL (18 mg/3 0.6 mg subcut DAILY 04/23/24 05/20/24 History mL) subcutaneous pen injector (Victoza 3-Festus) minoxidil 2.5 mg tablet 2.5 mg PO DAILY 04/23/24 05/27/24 History ondansetron 4 mg disintegrating 4 mg PO Q8H PRN Nausea 04/23/24 Unknown History tablet valacyclovir 500 mg tablet 500 mg PO DAILY 04/23/24 05/27/24 History diazepam 5 mg tablet (Valium) 5 mg PO TID PRN muscle spasm 5 07/25/24 Unknown Rx days #15 tabs oxycodone-acetaminophen 5 mg-325 1 tab PO Q6H PRN pain 3 days #12 07/25/24 Unknown Rx mg tablet (Percocet) tabs ondansetron 4 mg disintegrating 4 mg PO Q8H PRN PRN Nausea #10 tabs 01/09/25 Unknown Rx tablet oxycodone 5 mg tablet 5 mg PO Q6H PRN pain 3 days #12 01/09/25 Unknown Rx tabs Allergy/AdvReac Type Severity Reaction Status Date / Time hydralazine AdvReac Mild Other Verified 01/09/25 00:49 Family History Mother Diabetes Kidney disease Surgical History Hx of cystoscopy History of cholecystectomy S/P laparoscopic procedure History of tonsillectomy corrective eye surgery History of ear, nose, and throat (ENT) surgery Social History (Updated 01/09/25 @ 00:49 by Leila Joseph) household members: significant other housing: apartment Smoking Status: Never smoker alcohol intake: never substance use type: marijuana and other details: Edible cannabis OTC twice weekly. caffeine: No what type of physical activity do you participate in: walking seatbelt use: always do you feel safe at home: Yes additional social history: [place] Patient is unemployed EXAM Physical Exam Const Vital Signs: 01/09/25 00:45 01/09/25 02:45 01/09/25 03:13 Temperature 98.3 F Temperature Source Oral Pulse Rate 116 H 74 Respiratory Rate 20 H 16 Blood Pressure 156/109 H 153/79 H 159/93 H Blood Pressure Mean 124 103 115 Pulse Ox 99 98 Oxygen Delivery Method Room Air Room Air MDM MDM MDM Narrative Medical decision making narrative: HISTORY OF PRESENT ILLNESS: Chief complaint: Abdominal pain 29-year-old female presents left lower quad abdominal pain for the past 3 hours. Denies vomiting but notes nausea. Denies vaginal bleeding. Denies constipation or diarrhea. Denies urinary complaints. No falls or trauma noted. REVIEW OF SYSTEMS: Pertinent positives: Abdominal pain Pertinent negatives: Diarrhea, constipation, urinary complaints PHYSICAL EXAM: Nursing triage notes reviewed, Vital signs reviewed Constitutional: please see [facility] HENT: MMM Eyes: Pupils equal round and reactive to light, Extraocular muscles intact Neck: No stridor, no JVD, full neck ROM Lungs: Clear to auscultation, No wheezing or rales. No increased work of breathing, no conversational dyspnea, no accessory muscle use, no nasal flaring. No respiratory distress noted Heart: Regular rate and rhythm, No murmurs, No rubs and No gallops, 2+ distal pulses (radial, femoral, posterior tibial) in all extremities Abdomen: Soft, there is no tenderness, rigidity, rebound or guarding, no obvious peritoneal signs, no palpable pulsatile abdominal masses, no auscultated abdominal bruit : No CVAT Extremities: No edema Neuro: No new focal neurological deficits, cranial nerves II through XII intact, 5/5 strength in all present extremities. Intact sensation to light touch in all present extremities, 2+ reflexes bilateral patella tendons. Skin: No rash or lesions noted MEDICAL DECISION MAKING: Chief Complaint: please see HPI External records reviewed: Reviewed prior imaging studies: Reviewed CT scan of the abdomen pelvis from May 2024 which showed right renal obstruction secondary to ureteral calculus at the UPJ Factors affecting care: History of nephrolithiasis, diabetes, acute cholecystitis, PCOS Social determinants of health: History of marijuana use History obtained from others: none Consults: none [facility] Narrative: The patient was initially tachycardic with a heart rate of 116, hypertensive with a blood pressure 156/109, tachypneic with a respiratory 20, afebrile and nontoxic-appearing. Exam limited secondary to body habitus (BMI 58.7). I considered the following differential diagnosis: AAA, small bowel obstruction, abdominal perforation, appendicitis, pancreatitis, hepatobiliary pathology (acute cholecystitis), mesenteric ischemia, pathology (ie nephrolithiasis, pyelonephritis). Given his remote abdominal surgeries and limited exam I did obtain a CT scan of the abdomen pelvis to further evaluate signs of life-limiting etiology also obtain labs rule out any signs of organ dysfunction. Initially gave IV fluids, Zofran and Tylenol for pain control and eventually added on Toradol and morphine. ALL IMAGES (IF OBTAINED) HAVE BEEN PERSONALLY REVIEWED AND INTERPRETED BY MYSELF. Lipase is wnl indicating no pancreatic inflammation. CBC with leukocytosis suggestive of systemic inflammation however this is downtrending from prior, no anemia or thrombocytopenia noted BMP with hyponatremia, no JO ANN LFTs show no evidence of hepatobiliary pathology. Urinalysis with evidence of urinary inflammation with leukocyte esterase no nitrite likely etiologies kidney stone Urine test is negative CT scan abdomen/pelvis showed evidence of a small nephrolithiasis at the UVJ likely explanation of her symptoms Upon reevaluation patient heart rate improved to 74, respiratory rate is 16. The synthesis of the patient's history, physical exam, labs images suggest nephrolithiasis. Will give ongoing pain medication. Given the small size and dislocation should pass on its own. The patient and/or family, caregivers express understanding. The patient and/or family, caregivers agrees with the plan. Shared decision making: I will have a discussion with the patient and or visitors regarding risk/benefits of further testing or admission. They will be made aware of of the risk/benefits inherent in this decision they will be given the opportunity to voice understanding. Total critical care time today provided was at least 0 minutes. This excludes separately billable procedures. Critical care time (if documented) is secondary to the patient having high probability of clinically significant/life threatening deterioration in the patient's condition which required my urgent intervention. Impression: 1. Abdominal pain 2. Nephrolithiasis Dispo: Discharge home This note was generated with [employer] dictation software. It may contain incorrect words, spelling, and punctuation that were not noted in review of the chart prior to signing. Lab Data Labs: Laboratory Results - last 24 hr 01/09/25 01/09/25 00:58 01:05 WBC 14.6 H RBC 4.74 Hgb 12.9 Hct 39.3 MCV 82.9 MCH 27.2 MCHC 32.8 RDW Std Deviation 44.8 H RDW Coeff of Servando 15.0 H Plt Count 523 H MPV 9.8 Immature Gran % (Auto) 0.800 Neut % (Auto) 66.9 Lymph % (Auto) 24.1 [place] % (Auto) 6.7 Eos % (Auto) 1.0 Baso % (Auto) 0.5 Absolute Neuts (auto) 9.7 H Absolute Lymphs (auto) 3.50 Nucleated RBC % 0 Sodium 130 L Potassium 4.2 Chloride 93 L Carbon Dioxide 19.4 L Anion Gap 17 H BUN 19 Creatinine 1.18 Estim Creat Clear Calc 99.89 Est GFR (MDRD) Non-Af 63 BUN/Creatinine Ratio 15.7 Glucose 358 H Calcium 9.4 Total Bilirubin 0.49 AST 24 ALT 18 Alkaline Phosphatase 110 H Total Protein 8.3 Albumin 3.7 Globulin 4.6 H Albumin/Globulin Ratio 0.8 L Lipase 49 Urine Color Straw Urine Clarity Cloudy Urine pH 6.0 Ur Specific [place] 1.010 Urine Protein 100 H Urine Glucose (UA) 1000 H Urine Ketones Negative Urine Occult Blood 50 H Urine Nitrite Negative Urine Bilirubin Negative Urine Urobilinogen Normal Ur Leukocyte Esterase 500 H Urine Test Negative Radiography Diagnostic Testing: Clinical Impression(s) from Imaging Studies Abdomen/Pelvis CT 01/09/25 01:52 IMPRESSION: 1-2 mm distal left ureteral stone at the left UVJ axial 110 with associated mild left hydronephrosis. The left kidney is asymmetrically larger than the right. There is a significant appearing asymmetric delayed left renal nephrogram compared to the right for example axial 58. Enlarged, fatty appearing liver. Status post cholecystectomy. Reading Location: [facility] Discharge Plan Triage Chief Complaint: Abd Pain ED Provider: Kenrick Hein Dx/Rx/DC Orders Clinical Impression: Kidney stone Instructions: ED Kidney Stone with Pain Prescriptions: New oxycodone 5 mg tablet 5 mg PO Q6H PRN (Reason: pain) 3 Days Qty: 12 0RF ondansetron 4 mg tablet,disintegrating 4 mg PO Q8H PRN PRN (Reason: Nausea) Qty: 10 0RF No Action albuterol sulfate 90 mcg/actuation aerosol powdr breath activated 2 puff INHALATION Q6H PRN (Reason: Sob &/Or Wheezing) meloxicam 15 mg tablet 15 mg PO DAILY metformin 1,000 mg tablet 2,000 mg PO BID cyanocobalamin (vitamin B-12) [Vitamin B-12] 1,000 mcg tablet 1,000 mcg PO DAILY cholecalciferol (vitamin D3) 1,250 mcg (50,000 unit) capsule 50,000 unit PO FR Patient Comments: take 1 capsule by mouth every week loratadine 10 mg tablet 10 mg PO Q24H pregabalin 75 mg capsule 75 mg PO TID cyclobenzaprine 10 mg tablet 10 mg PO TID PRN (Reason: muscle spasm) metformin 500 mg tablet 500 mg PO QPM losartan-hydrochlorothiazide 100-12.5 mg tablet 1 tab PO DAILY clindamycin phosphate 1 % lotion 1 applic topical DAILY liraglutide [Victoza 3-Festus] 0.6 mg/0.1 mL (18 mg/3 mL) pen injector 0.6 mg subcut DAILY valacyclovir 500 mg tablet 500 mg PO DAILY minoxidil 2.5 mg tablet 2.5 mg PO DAILY ondansetron 4 mg tablet,disintegrating 4 mg PO Q8H PRN (Reason: Nausea) diazepam [Valium] 5 mg tablet 5 mg PO TID PRN (Reason: muscle spasm) 5 Days Qty: 15 0RF oxycodone-acetaminophen [Percocet] 5-325 mg tablet 1 tab PO Q6H PRN (Reason: pain) 3 Days Qty: 12 0RF Primary Care Provider: Xiang Ruiz Referrals: Xiang Ruiz DO [Primary Care Provider] - Activity Restrictions/Additional Instructions: Thank you for trusting us with your care today! Your labs imaging are consistent with a kidney stone. The stones of the size location should pass spontaneously. It is treated with pain control and nausea control. Please take Tylenol (2 pills, 650 mg), ibuprofen (2 pills, 400 mg) every 6 hours as needed for pain and fever control. Please take oxycodone for breakthrough pain. Please take Zofran as needed for nausea vomiting control. Please return to the emergency department if your symptoms change or worsen. Please follow with your primary care physician for further outpatient evaluation and management. Print Language: Sami Disposition Disposition: Home, Self Care Discharge Date/Time: 01/09/25 03:33
[2025-01-09] MEDS: Acetaminophen 325 MG Tablet 650 MG PO (01:45)
[2025-01-09] MEDS: 0.9% Normal Saline (1000mL) 1,000 ML 999 ML IV (01:45)
[2025-01-09] MEDS: Ondansetron 4 MG/2 ML Vial IV (01:45)
[2025-01-09 01:51] LABS: Color, Urine Straw (Yellow); Glucose, Dipstick 1000 mg/dl (Normal); Ketone-Dipstick Negative (Negative); Leukocyte Esterase-Dipstick 500 /ul (Negative); Nitrite-Dipstick Negative (Negative); Occult Blood-Urine 50 /ul (Negative); Protein-Dipstick 100 mg/dl (Negative); Urine Bilirubin Dipstick Negative (Negative); Urine Clarity Cloudy (Clear); Urine Urobilinogen Normal (Normal)
--- NOTE | 2025-01-09 01:52 | CT_ITS ---
PROCEDURE: ABDOMEN/PELVIS W IV CONT ONLY 01/09/2025 REASON FOR EXAM: LEFT LOWER QUADRANT ABDOMINAL PAIN TECHNIQUE: Abdomen and pelvis CT with intravenous contrast. Coronal and Sagittal reconstruction series were provided. PATIENT PREPARATION: Per protocol ORAL CONTRAST TYPE: None. CONTRAST: 98 cc Isovue 370 IV One or more dose reduction techniques were used (e.g., Automated exposure control, adjustment of the mA and/or kV according to patient size, use of iterative reconstruction technique. RADIATION DOSE SUMMARY: CTDlvol: 36.46 mGy DLP: 1984.06 mGycm COMPARISON: None available FINDINGS: The lung bases are clear. Enlarged, fatty appearing liver. Status post cholecystectomy. The adrenal glands, pancreas, right kidney and spleen appear within limits. 1-2 mm distal left ureteral stone at the left UVJ axial 110 with associated mild left hydronephrosis. The left kidney is asymmetrically larger than the right. There is a significant appearing asymmetric delayed left renal nephrogram compared to the right for example axial 58. No significant appearing perinephric edema. Retroaortic left renal vein, incidental anatomic variant. Abdominal aorta appears within limits. No adenopathy. No bowel dilation or free air. Thin, atretic appearing appendix without secondary signs. The ovaries/adnexa, uterus and bladder appear within limits. Intrauterine device appears centrally located. No free fluid. The visualized osseous structures appear within limits. CT/Abdomen/Pelvis W IV Cont ONLY IMPRESSION: 1-2 mm distal left ureteral stone at the left UVJ axial 110 with associated mil d left hydronephrosis. The left kidney is asymmetrically larger than the right. There is a significant appearing asymmetric delayed left renal nephrogram compared to the right for example axial 58. Enlarged, fatty appearing liver. Status post cholecystectomy. Reading Location: [id number]
[2025-01-09 01:56] LABS: Internal QC Validated? YES +Cl - CLEAR BKGD; Pregnancy, Urine Negative Negative
[2025-01-09 02:09] LABS: Absolute Neutrophil Count 9.7 X10^3/uL (2.0-7.7); Basophil# 0.08 X10^3/uL; Basophil% 0.5 % (0-1); Eosinophil# 0.15 X10^3/uL; Hematocrit 39.3 % (37-47); Hemoglobin 12.9 g/dL (12.0-15.0); Lymphocyte % 24.1 % (19-41); Mean Corp Hgb Conc 32.8 g/dL (32-36); Mean Corpuscular Hgb 27.2 pg (27.0-32.0); Mean Corpuscular Volume 82.9 fL (81-99); Mean Platelet Vol. 9.8 fl (6.2-12.0); Monocyte# 0.97 X10^3/uL; Monocyte% 6.7 % (0-10); NRBC Flagged by Analyzer 0 % (0-5); Neutrophil # 9.73 X10^3/uL (2.7-7.7); Neutrophil % 66.9 % (47-70); Platelet Count 523 K/mm3 (150-450); RBC Distribution Width SD 44.8 fl (35.1-43.9); Red Blood Count 4.74 M/mm3 (4.2-5.4); White Blood Count 14.6 K/mm3 (4.4-11.0)
[2025-01-09 02:18] LABS: ALB/GLOB Ratio 0.8 RATIO (0.9-2.4); AST(SGOT) 24 U/L (<=31); Alanine Aminotransfer ALT/SGPT 18 U/L (<=34); Albumin, Serum 3.7 g/dL (3.5-5.0); Alkaline Phosphatase 110 U/L (35-104); Anion Gap 17 (5-15); BUN 19 mg/dL (4-19); BUN/Creat Ratio 15.7 RATIO (10-20); Calcium,Total 9.4 mg/dL (7.6-11.0); Carbon Dioxide 19.4 mmol/L (21.0-32.0); Chloride 93 mmol/L (98-108); Creatinine, Serum 1.18 mg/dL (0.70-1.20); EST Glomerular Filtration Rate 63 (>60); Estimated Creatinine Clearance 99.89 ml/min (50-250); Globulin 4.6 g/dL (2.2-4.2); Glucose 358 mg/dL (70-99); Lipase 49 U/L (13-75); Potassium 4.2 mmol/L (3.3-5.1); Protein, Total 8.3 g/dL (5.9-8.4); Sodium Level 130 mmol/L (133-145); Total Bilirubin 0.49 mg/dL (0.00-1.30)
[2025-01-09 02:45] VITALS: BP 153/79
[2025-01-09] MEDS: Ketorolac 15 MG/ML Vial IV (02:49)
[2025-01-09 03:13] VITALS: BP 159/93; PULSE 74; RESP 16; O2SAT 98
[2025-01-09] MEDS: Morphine 4 MG/ML Syringe IV (03:15)
== END 2025-01-09 03:33 | disposition home or self-care (01) ==
PROVIDERS: Emergency Provider Emergency Medicine; PCP Student in an Organized Health Care Education/Training Program; Visit Provider Emergency Medicine
DX: N13.2 Hydronephrosis with renal and ureteral calculous obstruction (principal); E11.9 Type 2 diabetes mellitus without complications; E78.00 Pure hypercholesterolemia, unspecified; R11.0 Nausea; Z79.84 Long term (current) use of oral hypoglycemic drugs; Z79.85 Long-term (current) use of injectable non-insulin antidiabetic drugs; Z90.49 Acquired absence of other specified parts of digestive tract; R10.32 Left lower quadrant pain
CPT/HCPCS: 74177; 96361; 96374; 96375; 99283; Q9967; A4216; J2405

== ENCOUNTER 2025-01-22 23:34 | Emergency (ER) | payer MEDICAID, SELFPAY ==
[2025-01-22 23:36] VITALS: BP 182/112; PULSE 134; RESP 16; TEMP 36.8; O2SAT 96; BMI 59.8
--- NOTE | 2025-01-23 00:15 | ED.VIS.GI ---
HPI HPI - GI History of Present Illness Chief Complaint: Abd Pain Informant: patient Narrative Narrative: 29-year-old female states has been having pain in her right lower and mid abdomen for the past 5 days. She was seen here last week and diagnosed with a kidney stone on the left side, she states that pain is gone but she does not think she has passed the stone yet. She feels some mild abdominal discomfort when she urinates but no burning dysuria, hematuria, back pain, or fevers. She started having vaginal bleeding when this pain started 5 days ago, and then it subsided and now tonight it came back again and the pain worsened. The vaginal bleeding is very mild. She has had some nausea. She has a history of ovarian cysts as well, and states she does not think this feels like that nor does necessarily feel like her kidney stone pain. [facility] Medical History Kidney stone Contraceptive management Wears glasses Marijuana use Alcohol use Arthritis Low iron Fatty liver High cholesterol Easy bruising Back pain Syncope Dietary restriction Heartburn Non-smoker Shortness of breath on exertion Leg cramps History of pain when walking History of edema History of echocardiogram Morbid obesity Diabetes mellitus, type 2 Asthma Migraines Bilateral ovarian cysts PCOS (polycystic ovarian syndrome) Anxiety and depression Home Medications ?Medication ?Instructions ?Recorded ?Last Taken ?Type albuterol sulfate 90 mcg/actuation 2 puff inhalation Q6H PRN Sob &/Or 05/08/18 Unknown History breath activated powder inhaler Wheezing meloxicam 15 mg tablet 15 mg PO DAILY 08/25/23 05/27/24 History metformin 1,000 mg tablet 2,000 mg PO BID 08/25/23 05/27/24 History cholecalciferol (vitamin D3) 1,250 50,000 unit PO FR 12/04/23 04/17/24 History mcg (50,000 unit) capsule cyclobenzaprine 10 mg tablet 10 mg PO TID PRN muscle spasm 12/04/23 05/27/24 History loratadine 10 mg tablet 10 mg PO Q24H 12/04/23 05/27/24 History pregabalin 75 mg capsule 75 mg PO TID 12/04/23 05/27/24 History losartan 100 1 tab PO DAILY 02/03/24 05/27/24 History mg-hydrochlorothiazide 12.5 mg tablet metformin 500 mg tablet 500 mg PO QPM 02/03/24 05/27/24 History cyanocobalamin (vitamin B-12) 1,000 mcg PO DAILY 03/08/24 05/27/24 History 1,000 mcg tablet (Vitamin B-12) clindamycin phosphate 1 % lotion 1 applic topical DAILY 04/23/24 05/28/24 History liraglutide 0.6 mg/0.1 mL (18 mg/3 0.6 mg subcut DAILY 04/23/24 05/20/24 History mL) subcutaneous pen injector (Victoza 3-Festus) minoxidil 2.5 mg tablet 2.5 mg PO DAILY 04/23/24 05/27/24 History ondansetron 4 mg disintegrating 4 mg PO Q8H PRN Nausea 04/23/24 Unknown History tablet valacyclovir 500 mg tablet 500 mg PO DAILY 04/23/24 05/27/24 History diazepam 5 mg tablet (Valium) 5 mg PO TID PRN muscle spasm 5 07/25/24 Unknown Rx days #15 tabs oxycodone-acetaminophen 5 mg-325 1 tab PO Q6H PRN pain 3 days #12 07/25/24 Unknown Rx mg tablet (Percocet) tabs ondansetron 4 mg disintegrating 4 mg PO Q8H PRN PRN Nausea #10 tabs 01/09/25 Unknown Rx tablet oxycodone 5 mg tablet 5 mg PO Q6H PRN pain 3 days #12 01/09/25 Unknown Rx tabs ciprofloxacin HCl 500 mg tablet 500 mg PO BID #14 TABLETS 01/23/25 Unknown Rx Allergy/AdvReac Type Severity Reaction Status Date / Time hydralazine AdvReac Mild Other Verified 01/09/25 00:49 Family History Mother Diabetes Kidney disease Surgical History Hx of cystoscopy History of cholecystectomy S/P laparoscopic procedure History of tonsillectomy corrective eye surgery History of ear, nose, and throat (ENT) surgery Social History (Updated 01/09/25 @ 00:49 by Leila Joseph) household members: significant other housing: apartment Smoking Status: Never smoker alcohol intake: never substance use type: marijuana and other details: Edible cannabis OTC twice weekly. caffeine: No what type of physical activity do you participate in: walking seatbelt use: always do you feel safe at home: Yes additional social history: [place] Patient is unemployed ROS ROS ED Constitutional Constitutional ED: Denies chills or fever(s) Eyes Eyes: Denies change in vision or diplopia ENT ENT ED: Denies rhinorrhea or sore throat Cardiovascular Cardiovascular: Denies chest pain or palpitations Respiratory/Chest Respiratory/Chest: Denies cough or dyspnea Gastrointestinal Gastrointestinal: Reports abdominal pain and nausea; Denies diarrhea or vomiting Genitourinary Genitourinary ED: Reports as per HPI; Denies dysuria or hematuria Musculoskeletal Musculoskeletal: Denies back pain or neck pain Integumentary Denies abscess or rash Neurologic Neurologic: Denies headache(s), paresthesias or weakness Psychiatric Psychiatric: Denies anxiety or suicidal thoughts EXAM Physical Exam Const Vital Signs: 01/22/25 23:36 Temperature 98.2 F Temperature Source Oral Pulse Rate 134 H Respiratory Rate 16 Blood Pressure 182/112 H Blood Pressure Mean 135 Pulse Ox 96 Oxygen Delivery Method Room Air Positive well nourished and well developed Constitutional Narrative: Morbid obesity which limits the abdominal exam General Appearance ED: well developed and NAD HEENT Reports moist mucous membranes normocephalic and atraumatic Eyes PERRL and EOMs intact bilaterally Neck full ROM and supple Resp normal respiratory effort and clear to auscultation bilaterally Cardio regular rate, regular rhythm and no murmurs GI non-distended GI Narrative: There is some tenderness in the right lower and mid abdomen, this is all lateral and cranial to McBurney's point and she has no tenderness in the pelvis whatsoever. No guarding or rebound. No right upper quadrant tenderness. No left-sided abdominal tenderness. Exam is limited because I am palpating beneath her pannus. Auscultation: normoactive bowel sounds Palpation: soft Back/Spine no CVA tenderness General Back: other FROM Extremity normal to inspection General Extremety ED: Negative for edema, pulses abnormal or tenderness General Extremity: Negative for edema or pulses abnormal Neuro oriented x3, CN's II-XII intact bilaterally and no sensory deficits noted Sensorium / Orientation: awake and alert Motor Exam: strength 5/5 throughout Skin no rashes or lesions noted and no wounds MDM MDM MDM Narrative Medical decision making narrative: I reviewed her prior CT from last week, she had ureterolithiasis on the left, she did not have nephrolithiasis on the right. Therefore I do not think she had a kidney stone on the right side right now, nor do I think this is likely to be appendicitis. Started with labs, urinalysis, to rule out ectopic, and provide her with medications for symptoms. Her white blood count is 11.6, there is no leftward shift or bandemia, and this is lower than her white count was when she was just here recently. In addition her urinalysis is cloudy and looks infected. I sent this for culture. Since she had no stones on the right side and does not have tenderness in the pelvis to suggest an ovarian acute process, my clinical impression is that this is an upper urinary tract infection without development of true pyelonephritis at this point. I would treat her with IV Rocephin which was given and oral Cipro and have her follow-up with urology who she is established with as an outpatient, she states she has not yet passed her left kidney stone, but she is no longer having any pain with regards to it, so I do not think she needs to have repeat emergent imaging at this time or admission to the hospital. She is well-appearing and not septic. She does not appear to be in any distress. She was given Toradol and Zofran, and afterwards she states she is requesting something for pain. I did discuss with her that she was indeed given pain medication, and since she states it did not help, I am happy to give her a dose of morphine before discharge. History & Record Review Additional record(s) reviewed:: Prior labs (See above) Lab Data Attestation: I reviewed the patient's lab results. Labs: Laboratory Results - last 24 hr 01/23/25 01/23/25 00:06 00:16 WBC 11.6 H RBC 4.61 Hgb 12.9 Hct 37.8 MCV 82.0 MCH 28.0 MCHC 34.1 RDW Std Deviation 43.0 RDW Coeff of Servando 14.7 H Plt Count 525 H MPV 9.4 Immature Gran % (Auto) 0.900 Neut % (Auto) 60.8 Lymph % (Auto) 30.1 [place] % (Auto) 5.7 Eos % (Auto) 1.9 Baso % (Auto) 0.6 Absolute Neuts (auto) 7.1 Absolute Lymphs (auto) 3.50 Nucleated RBC % 0 Sodium 138 Potassium 3.7 Chloride 102 Carbon Dioxide 23.2 Anion Gap 13 BUN 13 Creatinine 0.86 Estim Creat Clear Calc 138.78 Est GFR (MDRD) Non-Af 92 BUN/Creatinine Ratio 15.4 Glucose 236 H Calcium 9.2 Urine Color Yellow Urine Clarity Cloudy Urine pH 6.0 Ur Specific [place] 1.020 Urine Protein 100 H Urine Glucose (UA) 1000 H Urine Ketones Negative Urine Occult Blood 250 H Urine Nitrite Negative Urine Bilirubin Negative Urine Urobilinogen Normal Ur Leukocyte Esterase 500 H Urine RBC 0-5 SEEN Urine WBC 50-100 SEEN Ur Squamous Epith Cells 0 SEEN Urine Bacteria 2+ Urine Mucus 0 SEEN Urine Yeast 1+ Urine Test Negative Discharge Plan Triage Chief Complaint: Abd Pain ED Provider: Philipp Redd Dx/Rx/DC Orders Clinical Impression: Acute upper urinary tract infection Instructions: UTIs Prescriptions: New ciprofloxacin HCl 500 mg tablet 500 mg PO BID Qty: 14 0RF No Action albuterol sulfate 90 mcg/actuation aerosol powdr breath activated 2 puff INHALATION Q6H PRN (Reason: Sob &/Or Wheezing) meloxicam 15 mg tablet 15 mg PO DAILY metformin 1,000 mg tablet 2,000 mg PO BID cyanocobalamin (vitamin B-12) [Vitamin B-12] 1,000 mcg tablet 1,000 mcg PO DAILY cholecalciferol (vitamin D3) 1,250 mcg (50,000 unit) capsule 50,000 unit PO FR Patient Comments: take 1 capsule by mouth every week loratadine 10 mg tablet 10 mg PO Q24H pregabalin 75 mg capsule 75 mg PO TID cyclobenzaprine 10 mg tablet 10 mg PO TID PRN (Reason: muscle spasm) metformin 500 mg tablet 500 mg PO QPM losartan-hydrochlorothiazide 100-12.5 mg tablet 1 tab PO DAILY clindamycin phosphate 1 % lotion 1 applic topical DAILY liraglutide [Victoza 3-Festus] 0.6 mg/0.1 mL (18 mg/3 mL) pen injector 0.6 mg subcut DAILY valacyclovir 500 mg tablet 500 mg PO DAILY minoxidil 2.5 mg tablet 2.5 mg PO DAILY ondansetron 4 mg tablet,disintegrating 4 mg PO Q8H PRN (Reason: Nausea) diazepam [Valium] 5 mg tablet 5 mg PO TID PRN (Reason: muscle spasm) 5 Days Qty: 15 0RF oxycodone-acetaminophen [Percocet] 5-325 mg tablet 1 tab PO Q6H PRN (Reason: pain) 3 Days Qty: 12 0RF oxycodone 5 mg tablet 5 mg PO Q6H PRN (Reason: pain) 3 Days Qty: 12 0RF ondansetron 4 mg tablet,disintegrating 4 mg PO Q8H PRN PRN (Reason: Nausea) Qty: 10 0RF Primary Care Provider: Xiang Ruiz Referrals: Sarah Lunsford MD [Med Staff - Active Staff] - (After the weekend-call for appointment) Xiang Ruiz DO [Primary Care Provider] - Print Language: Belgian Disposition Disposition: Home, Self Care
[2025-01-23 00:27] LABS: Mucous, Urine 0 SEEN /hpf (<or=2+); Squamous Epithelial Cells - UA 0 SEEN /hpf (5-10)
[2025-01-23] MEDS: Ondansetron 4 MG/2 ML Vial IV (00:29)
[2025-01-23] MEDS: Ketorolac 30 MG/ML Syringe IV (00:29)
[2025-01-23 00:44] LABS: Absolute Neutrophil Count 7.1 X10^3/uL (2.0-7.7); Basophil# 0.07 X10^3/uL; Basophil% 0.6 % (0-1); Eosinophil# 0.22 X10^3/uL; Eosinophils% 1.9 % (0-5); Hematocrit 37.8 % (37-47); Hemoglobin 12.9 g/dL (12.0-15.0); Lymphocyte % 30.1 % (19-41); Mean Corp Hgb Conc 34.1 g/dL (32-36); Mean Platelet Vol. 9.4 fl (6.2-12.0); Monocyte# 0.66 X10^3/uL; Monocyte% 5.7 % (0-10); NRBC Flagged by Analyzer 0 % (0-5); Neutrophil # 7.06 X10^3/uL (2.7-7.7); Neutrophil % 60.8 % (47-70); Platelet Count 525 K/mm3 (150-450); RBC Distribution Width CV 14.7 % (11.6-14.6); Red Blood Count 4.61 M/mm3 (4.2-5.4); White Blood Count 11.6 K/mm3 (4.4-11.0)
[2025-01-23 00:50] LABS: Anion Gap 13 (5-15); BUN 13 mg/dL (4-19); BUN/Creat Ratio 15.4 RATIO (10-20); Calcium,Total 9.2 mg/dL (7.6-11.0); Carbon Dioxide 23.2 mmol/L (21.0-32.0); Chloride 102 mmol/L (98-108); Creatinine, Serum 0.86 mg/dL (0.70-1.20); EST Glomerular Filtration Rate 92 (>60); Estimated Creatinine Clearance 138.78 ml/min (50-250); Glucose 236 mg/dL (70-99); Potassium 3.7 mmol/L (3.3-5.1); Sodium Level 138 mmol/L (133-145)
[2025-01-23 00:51] LABS: Color, Urine Yellow (Yellow); Glucose, Dipstick 1000 mg/dl (Normal); Ketone-Dipstick Negative (Negative); Leukocyte Esterase-Dipstick 500 /ul (Negative); Nitrite-Dipstick Negative (Negative); Occult Blood-Urine 250 /ul (Negative); Protein-Dipstick 100 mg/dl (Negative); Urine Bilirubin Dipstick Negative (Negative); Urine Clarity Cloudy (Clear); Urine Urobilinogen Normal (Normal)
[2025-01-23 00:56] LABS: Internal QC Validated? YES +Cl - CLEAR BKGD; Pregnancy, Urine Negative Negative
[2025-01-23 01:01] LABS: Bacteria 2+ /hpf (None Seen); Red Blood Cells-Urine 0-5 SEEN /hpf (0-5); White Blood Cells 50-100 SEEN /hpf (0-5); Yeast-Urine 1+ /hpf (None Seen)
[2025-01-23] MEDS: Morphine 4 MG/ML Syringe IV (01:26)
[2025-01-23] MEDS: Ceftriaxone 1 GM/50 ML BAG IV (01:27)
[2025-01-23 01:35] VITALS: BP 161/100; PULSE 65; RESP 15; RESP 18; TEMP 36.6; O2SAT 92
== END 2025-01-23 01:58 | disposition home or self-care (01) ==
PROVIDERS: Emergency Provider Emergency Medicine; PCP Student in an Organized Health Care Education/Training Program; Visit Provider Emergency Medicine
DX: R10.9 Unspecified abdominal pain (principal); E11.9 Type 2 diabetes mellitus without complications; N39.0 Urinary tract infection, site not specified; E78.00 Pure hypercholesterolemia, unspecified; Z79.84 Long term (current) use of oral hypoglycemic drugs; Z79.85 Long-term (current) use of injectable non-insulin antidiabetic drugs; Z90.49 Acquired absence of other specified parts of digestive tract
CPT/HCPCS: 80048; 81001; 81025; 85025; 87086; 87088; 96365; 96375; 99285; A4216; J2405

== ENCOUNTER 2025-01-30 10:36 | Observation (INO) | payer MEDICAID, SELFPAY ==
[2025-01-30] VITALS (7 sets, daily range): BP systolic 129–203; BP diastolic 73–120; PULSE 105–119; RESP 15–20; TEMP 36.4–37.1; O2SAT 97–99; BMI 60.3; BMI 59.7
--- NOTE | 2025-01-30 10:50 | CT_ITS ---
PROCEDURE: ABDOMEN/PELVIS WITHOUT CONT 01/30/2025 REASON FOR EXAM: KIDNEY STONE TECHNIQUE: Abdomen and pelvis CT without intravenous contrast. Noncontrast technique limits evaluation of the abdominal and pelvic viscera. Coronal and Sagittal reconstruction series were provided. One or more dose reduction techniques were used (e.g., Automated exposure control, adjustment of the mA and/or kV according to patient size, use of iterative reconstruction technique). PATIENT PREPARATION: Per protocol ORAL CONTRAST TYPE: None. COMPARISON: CT abdomen pelvis 01/09/2025. FINDINGS: Lung bases: The bibasilar lungs are clear. The heart is normal in size. Liver: Marked hepatomegaly with diffuse hepatic steatosis, unchanged. No biliary ductal dilation. Gallbladder: Prior cholecystectomy. Spleen: Normal size. Pancreas: The unopacified pancreas is unremarkable. Adrenals: No adrenal mass. Kidneys: Redemonstration of asymmetric, moderately enlarged left kidney, which appears hypodense to the right kidney. Interval development of a proximal left ureteral calculus measuring 0.6 cm (coronal image 85). Stable left lower pole renal calculus. Stable 1-2 mm distal stone at the left UVJ (series 2, image 148). Mild left hydronephrosis. No right renal calculus or hydronephrosis. Bladder: Decompressed. Reproductive Organs: An IUD is present. Adnexal regions are unremarkable. Bowel: The bowel loops are nondilated. No ascites or pneumoperitoneum. No inflammatory mass in the expected region of the appendix. Lymph nodes: No suspicious lymphadenopathy. Vasculature: The abdominal aorta and IVC contours are normal. Noncontrast technique limits evaluation. Bones: Minimal thoracolumbar spondylosis. Mild diffuse body wall edema. The body wall is not entirely included in the field of view. CT/Abdomen/Pelvis without Cont IMPRESSION: 1. Development of a proximal left ureteral calculus measuring 0.6 cm. 2. Stable left lower pole renal calculus and left UVJ calculus with mild left h ydronephrosis. 3. Stable moderate enlargement of the left kidney. Consider urologic consultati on for renal stones given persistent enlargement and concern for long-term renal function. 4. Marked hepatomegaly with diffuse hepatic steatosis. Reading Location: [id number]
--- NOTE | 2025-01-30 10:51 | EX.ED.DYSGE1 ---
HPI History of Present Illness Chief Complaint: Flank Pain Narrative Narrative: 29-year-old female past medical history of diabetes and kidney stones, sees Dr. Sarah Lunsford, presents with left flank pain. She relates history that approximately 2 weeks ago she was seen in the emergency department and diagnosed with left ureterolithiasis. She returned last week, but had pain on the right. She was diagnosed with a urinary tract infection at that time and started on antibiotics which she has been taking for the last 4 to 5 days. She awoke this morning with pain on the left side again, as well as nausea but no vomiting. She may have felt feverish. She denies any exacerbating or alleviating factors. She has not made an appointment with her urologist as of yet. [facility] Medical History Kidney stone Contraceptive management Wears glasses Marijuana use Alcohol use Arthritis Low iron Fatty liver High cholesterol Easy bruising Back pain Syncope Dietary restriction Heartburn Non-smoker Shortness of breath on exertion Leg cramps History of pain when walking History of edema History of echocardiogram Morbid obesity Diabetes mellitus, type 2 Asthma Migraines Bilateral ovarian cysts PCOS (polycystic ovarian syndrome) Anxiety and depression Home Medications ?Medication ?Instructions ?Recorded ?Last Taken ?Type albuterol sulfate 90 mcg/actuation 2 puff inhalation Q6H PRN Sob &/Or 05/08/18 Unknown History breath activated powder inhaler Wheezing meloxicam 15 mg tablet 15 mg PO DAILY 08/25/23 05/27/24 History metformin 1,000 mg tablet 2,000 mg PO BID 08/25/23 05/27/24 History cholecalciferol (vitamin D3) 1,250 50,000 unit PO FR 12/04/23 04/17/24 History mcg (50,000 unit) capsule cyclobenzaprine 10 mg tablet 10 mg PO TID PRN muscle spasm 12/04/23 05/27/24 History loratadine 10 mg tablet 10 mg PO Q24H 12/04/23 05/27/24 History pregabalin 75 mg capsule 75 mg PO TID 12/04/23 05/27/24 History losartan 100 1 tab PO DAILY 02/03/24 05/27/24 History mg-hydrochlorothiazide 12.5 mg tablet metformin 500 mg tablet 500 mg PO QPM 02/03/24 05/27/24 History cyanocobalamin (vitamin B-12) 1,000 mcg PO DAILY 03/08/24 05/27/24 History 1,000 mcg tablet (Vitamin B-12) clindamycin phosphate 1 % lotion 1 applic topical DAILY 04/23/24 05/28/24 History liraglutide 0.6 mg/0.1 mL (18 mg/3 0.6 mg subcut DAILY 04/23/24 05/20/24 History mL) subcutaneous pen injector (Victoza 3-Festus) minoxidil 2.5 mg tablet 2.5 mg PO DAILY 04/23/24 05/27/24 History ondansetron 4 mg disintegrating 4 mg PO Q8H PRN Nausea 04/23/24 Unknown History tablet valacyclovir 500 mg tablet 500 mg PO DAILY 04/23/24 05/27/24 History diazepam 5 mg tablet (Valium) 5 mg PO TID PRN muscle spasm 5 07/25/24 Unknown Rx days #15 tabs oxycodone-acetaminophen 5 mg-325 1 tab PO Q6H PRN pain 3 days #12 07/25/24 Unknown Rx mg tablet (Percocet) tabs ondansetron 4 mg disintegrating 4 mg PO Q8H PRN PRN Nausea #10 tabs 01/09/25 Unknown Rx tablet oxycodone 5 mg tablet 5 mg PO Q6H PRN pain 3 days #12 01/09/25 Unknown Rx tabs ciprofloxacin HCl 500 mg tablet 500 mg PO BID #14 TABLETS 01/23/25 Unknown Rx Allergy/AdvReac Type Severity Reaction Status Date / Time hydralazine AdvReac Mild Other Verified 01/30/25 10:40 Family History Mother Diabetes Kidney disease Surgical History Hx of cystoscopy History of cholecystectomy S/P laparoscopic procedure History of tonsillectomy corrective eye surgery History of ear, nose, and throat (ENT) surgery Social History household members: significant other housing: apartment Smoking Status: Never smoker alcohol intake: never substance use type: marijuana and other details: Edible cannabis OTC twice weekly. caffeine: No what type of physical activity do you participate in: walking seatbelt use: always do you feel safe at home: Yes additional social history: [place] Patient is unemployed ROS ROS ED ROS Narrative Review of systems positive for nausea but no vomiting. Subjective fever. Positive left flank pain. No hematuria. EXAM Physical Exam Narrative Exam Narrative: Afebrile. Vital signs noted. Nontoxic-appearing. Cardiovascular examination reveals mild tachycardia. Lungs clear to auscultation bilaterally. Abdomen soft, nontender, without guarding or rebound. Neurological examination nonfocal nonlateralizing. Const Vital Signs: 01/30/25 10:36 01/30/25 12:33 Temperature 97.6 F L 97.8 F Temperature Source Temporal Oral Pulse Rate 119 H 105 H Respiratory Rate 19 H 15 Blood Pressure 203/120 H 140/85 H Blood Pressure Mean 147 103 Pulse Ox 99 97 Oxygen Delivery Method Room Air Room Air MDM MDM MDM Narrative Medical decision making narrative: Differential diagnosis includes but not limited to infected ureterolithiasis versus pyelonephritis versus flank pain unknown etiology. I reviewed her prior ED visits. She was seen and had CT scanning performed which did show a left ureterolithiasis. On her last visit, she had 50-100 WBCs in her urine. It was decided that she did not require CT flank at that time because the pain had resolved on her left side and was on her right side. Given her recent diagnosis of ureterolithiasis and UTI, concern would be for infected stone. While she is tachycardic, she is not any other SIRS criteria as of yet. I do feel that she requires repeat imaging to see if she still has ureterolithiasis on the left. She was administered ketorolac, morphine, and ondansetron. CBC and BMP will be checked as well as urinalysis, along with repeat CT. I reviewed her laboratory work and she most recently had a negative test. Additionally, I reviewed her prior CT scan on January 09, which was over 2 weeks ago, it did show 1 to 2 mm left distal stone with left hydronephrosis. I reviewed her laboratory work from today, she has elevated white count at 13.9, but in review of prior labs a chronic leukocytosis. Hemoglobin 12.2 with hematocrit 38.3, platelet count elevated at 457 which may be more of an acute phase reactant. Urinalysis shows 50-100 WBCs with 5-10 RBCs but negative nitrites and negative ketones. Leukocyte esterase is 500. Review of her BMP, she has a normal creatinine and BUN 19. Lactic acid normal at 1.8. I reviewed the CT scan from today, and she still has a stable 1 to 2 mm stone distally on the left with hydronephrosis but she also developed a 0.6 cm proximal stone. Her urinalysis did still continue to show 50-100 WBCs. This was sent for culture. I discussed the patient with Dr. Lunsford who will admit the patient. She did require an additional dose of morphine for pain control as well. Disposition is admit in stable condition. History & Record Review Discussion w/independent historian: Patient Lab Data Attestation: I reviewed the patient's lab results. Labs: Laboratory Results - last 24 hr 01/30/25 01/30/25 01/30/25 11:05 11:40 11:47 WBC 13.9 H RBC 4.62 Hgb 12.2 Hct 38.3 MCV 82.9 MCH 26.4 L MCHC 31.9 L RDW Std Deviation 44.7 H RDW Coeff of Servando 15.0 H Plt Count 457 H MPV 9.4 Immature Gran % (Auto) 0.700 Neut % (Auto) 68.8 Lymph % (Auto) 22.7 [place] % (Auto) 6.0 Eos % (Auto) 1.4 Baso % (Auto) 0.4 Absolute Neuts (auto) 9.5 H Absolute Lymphs (auto) 3.15 Nucleated RBC % 0 Sodium 133 Potassium 4.3 Chloride 99 Carbon Dioxide 21.4 Anion Gap 13 BUN 19 Creatinine 1.02 Estim Creat Clear Calc 117.67 Est GFR (MDRD) Non-Af 75 BUN/Creatinine Ratio 19.0 Glucose 312 H Lactic Acid 1.8 Calcium 8.7 Urine Color Yellow Urine Clarity Cloudy Urine pH 6.0 Ur Specific [place] 1.010 Urine Protein 100 H Urine Glucose (UA) 1000 H Urine Ketones Negative Urine Occult Blood 150 H Urine Nitrite Negative Urine Bilirubin Negative Urine Urobilinogen Normal Ur Leukocyte Esterase 500 H Urine RBC 5-10 SEEN Urine WBC 50-100 SEEN Ur Squamous Epith Cells 0-5 SEEN Urine Bacteria 0 SEEN Urine Mucus 0 SEEN Radiography Diagnostic Testing: Clinical Impression(s) from Imaging Studies Abdomen/Pelvis CT 01/30/25 10:50 IMPRESSION: 1. Development of a proximal left ureteral calculus measuring 0.6 cm. 2. Stable left lower pole renal calculus and left UVJ calculus with mild left hydronephrosis. 3. Stable moderate enlargement of the left kidney. Consider urologic consultation for renal stones given persistent enlargement and concern for long-term renal function. 4. Marked hepatomegaly with diffuse hepatic steatosis. Reading Location: [facility] Discharge Plan Triage Chief Complaint: Flank Pain ED Provider: Geronimo Cho Dx/Rx/DC Orders Clinical Impression: Ureterolithiasis, Morbid obesity with BMI of 60.0-69.9, adult, History of type 2 diabetes mellitus, Hydronephrosis, UTI (urinary tract infection) Prescriptions: No Action albuterol sulfate 90 mcg/actuation aerosol powdr breath activated 2 puff INHALATION Q6H PRN (Reason: Sob &/Or Wheezing) meloxicam 15 mg tablet 15 mg PO DAILY metformin 1,000 mg tablet 2,000 mg PO BID cyanocobalamin (vitamin B-12) [Vitamin B-12] 1,000 mcg tablet 1,000 mcg PO DAILY ciprofloxacin HCl 500 mg tablet 500 mg PO BID Qty: 14 0RF cholecalciferol (vitamin D3) 1,250 mcg (50,000 unit) capsule 50,000 unit PO FR Patient Comments: take 1 capsule by mouth every week loratadine 10 mg tablet 10 mg PO Q24H pregabalin 75 mg capsule 75 mg PO TID cyclobenzaprine 10 mg tablet 10 mg PO TID PRN (Reason: muscle spasm) metformin 500 mg tablet 500 mg PO QPM losartan-hydrochlorothiazide 100-12.5 mg tablet 1 tab PO DAILY clindamycin phosphate 1 % lotion 1 applic topical DAILY liraglutide [Victoza 3-Festus] 0.6 mg/0.1 mL (18 mg/3 mL) pen injector 0.6 mg subcut DAILY valacyclovir 500 mg tablet 500 mg PO DAILY minoxidil 2.5 mg tablet 2.5 mg PO DAILY ondansetron 4 mg tablet,disintegrating 4 mg PO Q8H PRN (Reason: Nausea) diazepam [Valium] 5 mg tablet 5 mg PO TID PRN (Reason: muscle spasm) 5 Days Qty: 15 0RF oxycodone-acetaminophen [Percocet] 5-325 mg tablet 1 tab PO Q6H PRN (Reason: pain) 3 Days Qty: 12 0RF oxycodone 5 mg tablet 5 mg PO Q6H PRN (Reason: pain) 3 Days Qty: 12 0RF ondansetron 4 mg tablet,disintegrating 4 mg PO Q8H PRN PRN (Reason: Nausea) Qty: 10 0RF Primary Care Provider: Xiang Ruiz Referrals: Xiang Ruiz DO [Primary Care Provider] - Print Language: Latvian
[2025-01-30] MEDS: Ondansetron 4 MG/2 ML Vial IV ×2 (11:11→13:17)
[2025-01-30] MEDS: Ketorolac 15 MG/ML Vial IV (11:12)
[2025-01-30] MEDS: Morphine 4 MG/ML Syringe IV ×2 (11:12→12:35)
[2025-01-30 11:15] LABS: Absolute Lymphocyte Count 3.15 X10^3/uL (0.83-4.51); Absolute Neutrophil Count 9.5 X10^3/uL (2.0-7.7); Basophil# 0.06 X10^3/uL; Basophil% 0.4 % (0-1); Eosinophil# 0.19 X10^3/uL; Eosinophils% 1.4 % (0-5); Hematocrit 38.3 % (37-47); Hemoglobin 12.2 g/dL (12.0-15.0); Lymphocyte # 3.15 X10^3/ul (0.83-4.51); Lymphocyte % 22.7 % (19-41); Mean Corp Hgb Conc 31.9 g/dL (32-36); Mean Corpuscular Hgb 26.4 pg (27.0-32.0); Mean Corpuscular Volume 82.9 fL (81-99); Mean Platelet Vol. 9.4 fl (6.2-12.0); Monocyte# 0.83 X10^3/uL; NRBC Flagged by Analyzer 0 % (0-5); Neutrophil # 9.52 X10^3/uL (2.7-7.7); Neutrophil % 68.8 % (47-70); Platelet Count 457 K/mm3 (150-450); RBC Distribution Width SD 44.7 fl (35.1-43.9); Red Blood Count 4.62 M/mm3 (4.2-5.4); White Blood Count 13.9 K/mm3 (4.4-11.0)
[2025-01-30 11:50] LABS: Bacteria 0 SEEN /hpf (None Seen); Mucous, Urine 0 SEEN /hpf (<or=2+)
[2025-01-30 11:56] LABS: Color, Urine Yellow (Yellow); Glucose, Dipstick 1000 mg/dl (Normal); Ketone-Dipstick Negative (Negative); Leukocyte Esterase-Dipstick 500 /ul (Negative); Nitrite-Dipstick Negative (Negative); Occult Blood-Urine 150 /ul (Negative); Protein-Dipstick 100 mg/dl (Negative); Urine Bilirubin Dipstick Negative (Negative); Urine Clarity Cloudy (Clear); Urine Urobilinogen Normal (Normal)
[2025-01-30 12:01] LABS: Red Blood Cells-Urine 5-10 SEEN /hpf (0-5); Squamous Epithelial Cells - UA 0-5 SEEN /hpf (5-10); White Blood Cells 50-100 SEEN /hpf (0-5)
[2025-01-30 12:15] LABS: Lactic Acid 1.8 mmol/L (0.0-2.0)
[2025-01-30 12:17] LABS: Anion Gap 13 (5-15); BUN 19 mg/dL (4-19); Calcium,Total 8.7 mg/dL (7.6-11.0); Carbon Dioxide 21.4 mmol/L (21.0-32.0); Chloride 99 mmol/L (98-108); Creatinine, Serum 1.02 mg/dL (0.70-1.20); EST Glomerular Filtration Rate 75 (>60); Estimated Creatinine Clearance 117.67 ml/min (50-250); Glucose 312 mg/dL (70-99); Potassium 4.3 mmol/L (3.3-5.1); Sodium Level 133 mmol/L (133-145)
[2025-01-30] MEDS: Piperacil/Tazobactam 3.375 GM/50 ML ML IV (12:55)
--- NOTE | 2025-01-30 13:14 | CASEMGMT ---
"Care Management Face to Face with patient for initial transition planning/care coordination assessment in the ED. 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 Patient alert and oriented. Patient willing to participate in assessment and is able to answer all questions appropriately. Patient's significant other, Tong, bedside; permission give to speak in front of Tong. Care providers, pharmacy, and demographics verified. Admitting Diagnosis: hydronephrosis, ureterolithiasis Other diagnosis history: type II diabetes mellitus, ureterolithiasis, PCOS PCP: Joseph Specialists: [facility] (reports not going in awhile due to not needing to) [facility] Insurance: [employer] | [employer] Prescription Benefit: yes Living Will/HPOA: none, but desires to complete during admission. LNOK: Catrachito Mcintyre (aunt) Living Arrangements: patient lives alone in a ground level apartment with 3 steps to enter. Patient states patient's significant other, Tong, is available for support after returning home. Reports being independent with all ADLs/IADLs. Transportation: patient does not drive and relies on significant other to provide transportation DME: blood pressure cuff, rollator, cane, wheelchair, shower bench (though states shower bench is in rough condition and needs new one, if possible) HHC: none SNF/Rehab: none Community Resources: none Behavioral Health History: anxiety and depression, per chart. Patient goals: Patient wishes to discharge home, denies need for home health care at this time. Patient denies any further needs or concerns at this time. Disposition Plan: admission to acute; RN CM/SW to follow for discharge planning needs that may arise. Nancy Rosario, SUPERVISOR COOK ROOM, EXPENSE CLERK"
[2025-01-30 15:30] LABS: Bedside Glucose 249 mg/dL (74-106)
[2025-01-30] MEDS: metFORMIN HCl 500 MG Tablet PO (17:02)
[2025-01-30] MEDS: Lactated Ringers 1,000 ML 125 ML IV (17:02)
[2025-01-30] MEDS: Insulin Lispro 100 UNIT/ML INSULN.PEN SC ×2 (17:18→21:50)
[2025-01-30] MEDS: oxyCODONE 5 MG Tablet 10 MG PO ×2 (17:23→23:40)
[2025-01-30] MEDS: metFORMIN HCl 1,000 MG Tablet 1000 MG PO (18:29)
[2025-01-30] MEDS: Morphine 2 MG/ML Syringe IV (21:28)
[2025-01-30] MEDS: cycloBENZAPRine HCl 10 MG Tablet PO (21:28)
[2025-01-30] MEDS: Acetaminophen 500 MG Tablet 1000 MG PO (21:29)
[2025-01-30] MEDS: Acyclovir 200 MG Capsule 400 MG PO (21:29)
[2025-01-30] MEDS: Piperacil/Tazobactam 3.375 GM in 0.9% Normal Saline (50mL MB+) 50 ML IV (23:33)
[2025-01-31 00:13] LABS: Bedside Glucose 272 mg/dL (74-106)
[2025-01-31] MEDS: Lactated Ringers 1,000 ML 125 ML IV ×3 (01:40→16:58)
[2025-01-31 03:00] VITALS: BP 144/95; PULSE 93; RESP 16; TEMP 36.5; O2SAT 98
[2025-01-31] MEDS: Ketorolac 15 MG/ML Vial IV (03:54)
[2025-01-31] MEDS: Ondansetron 4 MG/2 ML Vial IV ×2 (04:00→17:10)
[2025-01-31] MEDS: Piperacil/Tazobactam 3.375 GM in 0.9% Normal Saline (50mL MB+) 50 ML IV ×3 (05:57→22:22)
[2025-01-31] MEDS: Acetaminophen 500 MG Tablet 1000 MG PO ×3 (05:57→22:21)
[2025-01-31] MEDS: Insulin Lispro 100 UNIT/ML INSULN.PEN SC ×4 (06:49→22:28)
[2025-01-31 07:13] LABS: Bedside Glucose 200 mg/dL (74-106)
[2025-01-31] MEDS: proMETHazine 25 MG/ML Syringe 12.5 MG IM (08:28)
[2025-01-31] MEDS: metFORMIN HCl 1,000 MG Tablet 1000 MG PO ×2 (08:33→17:05)
[2025-01-31] MEDS: Loratadine 10 MG Tablet PO (08:34)
[2025-01-31] MEDS: Losartan Potassium 100 MG Tablet PO (08:34)
[2025-01-31] MEDS: Minoxidil 2.5 MG Tablet PO (08:35)
[2025-01-31] MEDS: Empagliflozin 10 MG Tablet PO (08:35)
[2025-01-31] MEDS: hydroCHLOROthiazide 12.5mg 12.5 MG PO (08:35)
[2025-01-31] MEDS: Acyclovir 200 MG Capsule 400 MG PO ×2 (08:36→22:21)
[2025-01-31 08:40] VITALS: PULSE 91
[2025-01-31] MEDS: Metoprolol(XL)Succ 25 MG Tablet PO (08:40)
[2025-01-31] MEDS: oxyCODONE 5 MG Tablet 10 MG PO ×2 (08:48→22:41)
[2025-01-31 09:00] VITALS: BP 143/92; PULSE 75; RESP 18; TEMP 36.6; O2SAT 99
[2025-01-31 12:50] LABS: Bedside Glucose 302 mg/dL (74-106)
--- NOTE | 2025-01-31 13:53 | PCM.HP.STD ---
HPI - General General Date of Admission: 01/30/25 Date of Service: 01/31/25 Chief Complaint: Left flank pain HPI Narrative SOLEDAD LOYOLA, is a 29 F who presented to the emergency room with left flank pain. She was diagnosed with a proximal left ureteral calculus with mild hydronephrosis along with a urinary tract infection. She was placed on Cipro a few days prior to coming into the emergency room and this medication was changed to Zosyn. She had nausea and vomiting as well. She is feeling somewhat better this morning. [facility] Medical History Kidney stone Contraceptive management Wears glasses Marijuana use Alcohol use Arthritis Low iron Fatty liver High cholesterol Easy bruising Back pain Syncope Dietary restriction Heartburn Non-smoker Shortness of breath on exertion Leg cramps History of pain when walking History of edema History of echocardiogram Morbid obesity Diabetes mellitus, type 2 Asthma Migraines Bilateral ovarian cysts PCOS (polycystic ovarian syndrome) Anxiety and depression Home Medications ?Medication ?Instructions ?Recorded ?Last Taken ?Type albuterol sulfate 90 mcg/actuation 2 puff inhalation Q6H PRN Sob &/Or 05/08/18 Unknown History breath activated powder inhaler Wheezing meloxicam 15 mg tablet 15 mg PO DAILY 08/25/23 05/27/24 History metformin 1,000 mg tablet 2,000 mg PO BID 08/25/23 01/29/25 History cholecalciferol (vitamin D3) 1,250 50,000 unit PO FR 12/04/23 01/29/25 History mcg (50,000 unit) capsule cyclobenzaprine 10 mg tablet 10 mg PO TID PRN muscle spasm 12/04/23 05/27/24 History loratadine 10 mg tablet 10 mg PO Q24H 12/04/23 01/29/25 History losartan 100 1 tab PO DAILY 02/03/24 01/29/25 History mg-hydrochlorothiazide 12.5 mg tablet metformin 500 mg tablet 500 mg PO QPM 02/03/24 01/29/25 History cyanocobalamin (vitamin B-12) 1,000 mcg PO DAILY 03/08/24 01/29/25 History 1,000 mcg tablet (Vitamin B-12) clindamycin phosphate 1 % lotion 1 applic topical DAILY 04/23/24 01/29/25 History minoxidil 2.5 mg tablet 2.5 mg PO DAILY 04/23/24 01/29/25 History valacyclovir 500 mg tablet 500 mg PO DAILY 04/23/24 01/29/25 History ciprofloxacin HCl 500 mg tablet 500 mg PO BID #14 TABLETS 01/23/25 01/29/25 Rx empagliflozin 10 mg tablet 10 mg PO DAILY 01/30/25 01/29/25 History (Jardiance) metoprolol succinate 25 mg 25 mg PO DAILY blood pressure 01/30/25 01/29/25 History tablet,extended release 24 hr ondansetron 4 mg disintegrating 4 mg PO Q8H PRN Nausea 01/30/25 01/29/25 History tablet pregabalin 100 mg capsule 100 mg PO TID PRN NERVE PAIN 01/30/25 01/29/25 History tretinoin 0.025 % topical cream 1 applic topical QHS acne 01/30/25 01/29/25 History Allergy/AdvReac Type Severity Reaction Status Date / Time hydralazine AdvReac Mild Other Verified 01/30/25 10:40 Family History Mother Diabetes Kidney disease Surgical History Hx of cystoscopy History of cholecystectomy S/P laparoscopic procedure History of tonsillectomy corrective eye surgery History of ear, nose, and throat (ENT) surgery Social History household members: significant other housing: apartment Smoking Status: Never smoker alcohol intake: never substance use type: marijuana and other details: Edible cannabis OTC twice weekly. caffeine: No what type of physical activity do you participate in: walking seatbelt use: always do you feel safe at home: Yes additional social history: [employer] Patient is unemployed ROS Constitutional Constitutional: Reports systems reviewed and no addt'l complaints, except as documented; Denies chills or fever(s) Eyes Eyes: Reports systems reviewed and no addt'l complaints, except as documented ENT HEENT: Reports systems reviewed and no addt'l complaints, except as documented Cardiovascular Cardiovascular: Reports abdominal pain; Denies chest pain, dizziness or dyspnea Respiratory/Chest Respiratory/Chest: Reports systems reviewed and no addt'l complaints, except as documented; Denies cough or dyspnea Gastrointestinal Gastrointestinal: Reports systems reviewed and no addt'l complaints, except as documented, abdominal pain, nausea and vomiting Genitourinary Genitourinary: Reports systems reviewed and no addt'l complaints, except as documented, abdominal discomfort, flank pain and urinary urgency Musculoskeletal Musculoskeletal: Reports systems reviewed and no addt'l complaints, except as documented Integumentary Integumentary: Reports systems reviewed and no addt'l complaints, except as documented Neurologic Neurologic: Reports systems reviewed and no addt'l complaints, except as documented Psychiatric Psychiatric: Reports systems reviewed and no addt'l complaints, except as documented Endocrine Endocrinology: Reports systems reviewed and no addt'l complaints, except as documented Hematologic/Lymphatic Hematologic/Lymphatic: Reports systems reviewed and no addt'l complaints, except as documented Allergic/Immunologic Allergic/Immunologic: Reports systems reviewed and no addt'l complaints, except as documented Vital Signs Vital Signs Vital Signs: 01/30/25 13:59 01/30/25 14:48 01/30/25 14:54 Temperature 98.5 F 98.7 F Temperature Source Oral Oral Pulse Rate 110 H 111 H Respiratory Rate 19 H 19 H Respiratory Effort Normal Non-Labored Respiratory Depth Normal Respiratory Pattern Normal Blood Pressure 138/73 H 129/82 H Blood Pressure Mean 94 97 Blood Pressure Source Monitor Blood Pressure Position Semi-Fowlers Blood Pressure Location Right Arm Pulse Ox 98 98 Oxygen Delivery Method Room Air Room Air Room Air 01/30/25 21:00 01/31/25 03:00 01/31/25 08:00 Temperature 98.8 F 97.7 F L Temperature Source Oral Oral Pulse Rate 106 H 93 Respiratory Rate 16 16 Respiratory Effort Normal Non-Labored Respiratory Depth Normal Respiratory Pattern Normal Blood Pressure 146/85 H 144/95 H Blood Pressure Mean 105 111 Blood Pressure Source Monitor Monitor Blood Pressure Position Semi-Fowlers Semi-Fowlers Blood Pressure Location Left Forearm Right Forearm Pulse Ox 97 98 Oxygen Delivery Method Room Air Room Air Room Air 01/31/25 08:40 01/31/25 09:00 Temperature 97.9 F Temperature Source Oral Pulse Rate 91 75 Respiratory Rate 18 Respiratory Effort Respiratory Depth Respiratory Pattern Blood Pressure 143/92 H Blood Pressure Mean 109 Blood Pressure Source Monitor Blood Pressure Position Sitting Blood Pressure Location Right Forearm Pulse Ox 99 Oxygen Delivery Method Room Air Weight Weight: 152.861 kg Body Mass Index (BMI) 59.7 Physical Exam Const alert, oriented x3 and no apparent distress General Appearance: cooperative, comfortable and well developed HEENT normocephalic, head/scalp atraumatic, hearing grossly normal bilaterally, external ears normal, external nose normal and moist oral mucous membranes Eyes General Eye: normal appearance of both eyes Neck supple General: normal visual inspection Lymph Lymphatic: no lymphedema noted Chest inspection of chest normal Chest: symmetrical chest wall rise Resp normal respiratory effort, normal air movement, no retractions and no use of accessory muscles Cardio regular rate GI soft to palpation, non-tender and non-distended Bladder / Kidney Exam: CVA tenderness left Back/Spine General Back: CVA tenderness left Extremity normal to inspection Skin no rashes or lesions noted, no wounds, no jaundice, no petechiae and no mottling Neuro oriented x3, CN's II-XII intact bilaterally and moves all extremities Psych mental status grossly normal, thought process normal and cooperative Results Lab / Micro Data 01/30/25 11:05 01/30/25 11:05 Labs: Laboratory Results - last 24 hr 01/30/25 15:07: POC Glucose 249 H 01/30/25 21:48: POC Glucose 272 H 01/31/25 06:46: POC Glucose 200 H 01/31/25 12:28: POC Glucose 302 H Micro: Microbiology 01/30/25 11:40 Urine, Clean Catch Urine Culture - Preliminary Culture exhibits no growth. Assessment & Plan Assessment/Plan (1) Ureterolithiasis: (2) Hydronephrosis: (3) UTI (urinary tract infection): PLAN: Plan NPO tonight cystoscopy with ureteroscopy, laser lithotripsy, stone basket extraction and stent placement tomorrow Continue antibiotics Continue supportive care, pain control
[2025-01-31 14:00] VITALS: BP 129/83; PULSE 96; RESP 16; TEMP 36.4; O2SAT 93
[2025-01-31] MEDS: metFORMIN HCl 500 MG Tablet PO (16:39)
[2025-01-31] MEDS: Morphine 2 MG/ML Syringe IV (16:52)
[2025-01-31 17:04] LABS: Bedside Glucose 227 mg/dL (74-106)
[2025-01-31 20:00] VITALS: BP 128/64; PULSE 98; RESP 18; TEMP 36.7; O2SAT 97
[2025-01-31 20:35] LABS: Internal QC Validated? YES +Cl - CLEAR BKGD; Pregnancy, Urine Negative Negative; Record Kit Lot#,Urine Preg 929381
--- NOTE | 2025-01-31 22:43 | NURSING ---
oxycodone scanned in room. Computer froze. Med given with Arina guzman. Attenpted to chart several times on multiple computers and same error came up. Your connection isnt private.
[2025-01-31 22:47] LABS: Bedside Glucose 209 mg/dL (74-106)
[2025-02-01] VITALS (15 sets, daily range): BP systolic 113–148; BP diastolic 55–99; PULSE 89–103; RESP 16–20; TEMP 36.2–36.9; O2SAT 91–98; BMI 59.7
[2025-02-01] MEDS: Ondansetron 4 MG/2 ML Vial IV (06:20)
[2025-02-01] MEDS: Piperacil/Tazobactam 3.375 GM in 0.9% Normal Saline (50mL MB+) 50 ML IV ×3 (06:21→22:19)
[2025-02-01] MEDS: Morphine 2 MG/ML Syringe IV ×2 (06:21→18:35)
[2025-02-01] MEDS: Lactated Ringers 1,000 ML 125 ML IV ×3 (06:38→14:04)
[2025-02-01 06:58] LABS: Bedside Glucose 179 mg/dL (74-106)
[2025-02-01] MEDS: Metoprolol(XL)Succ 25 MG Tablet PO (07:44)
[2025-02-01 07:57] LABS: Absolute Lymphocyte Count 2.92 X10^3/uL (0.83-4.51); Absolute Neutrophil Count 8.2 X10^3/uL (2.0-7.7); Basophil# 0.07 X10^3/uL; Basophil% 0.6 % (0-1); Eosinophil# 0.25 X10^3/uL; Hematocrit 33.4 % (37-47); Hemoglobin 10.6 g/dL (12.0-15.0); Lymphocyte # 2.92 X10^3/ul (0.83-4.51); Lymphocyte % 23.9 % (19-41); Mean Corp Hgb Conc 31.7 g/dL (32-36); Mean Corpuscular Hgb 26.3 pg (27.0-32.0); Mean Corpuscular Volume 82.9 fL (81-99); Mean Platelet Vol. 9.6 fl (6.2-12.0); Monocyte# 0.74 X10^3/uL; Monocyte% 6.1 % (0-10); NRBC Flagged by Analyzer 0 % (0-5); Neutrophil % 67.1 % (47-70); Platelet Count 409 K/mm3 (150-450); RBC Distribution Width CV 15.4 % (11.6-14.6); RBC Distribution Width SD 46.3 fl (35.1-43.9); Red Blood Count 4.03 M/mm3 (4.2-5.4); White Blood Count 12.2 K/mm3 (4.4-11.0)
[2025-02-01 08:53] LABS: International Normalized Ratio 1.1
[2025-02-01 08:54] LABS: Partial Thromboplast Time 27.3 Seconds (24.1-36.2)
[2025-02-01 09:11] LABS: AST(SGOT) 61 U/L (<=31); Alanine Aminotransfer ALT/SGPT 43 U/L (<=34); Albumin, Serum 3.3 g/dL (3.5-5.0); Alkaline Phosphatase 196 U/L (35-104); Anion Gap 13 (5-15); BUN 29 mg/dL (4-19); BUN/Creat Ratio 13.1 RATIO (10-20); Bilirubin, Direct 0.28 mg/dL (0.00-0.30); Calcium,Total 8.6 mg/dL (7.6-11.0); Carbon Dioxide 17.6 mmol/L (21.0-32.0); Chloride 103 mmol/L (98-108); EST Glomerular Filtration Rate 30 (>60); Estimated Creatinine Clearance 54.15 ml/min (50-250); Globulin 3.9 g/dL (2.2-4.2); Glucose 185 mg/dL (70-99); Potassium 4.4 mmol/L (3.3-5.1); Protein, Total 7.2 g/dL (5.9-8.4); Sodium Level 134 mmol/L (133-145); Total Bilirubin 0.53 mg/dL (0.00-1.30)
[2025-02-01 12:00] LABS: Bedside Glucose 164 mg/dL (74-106)
--- NOTE | 2025-02-01 15:40 | PRE.ANES_ITS ---
ASA Classification* ASA Classification ASA Classification: 4 (Morbidly Obese, Asthma, HTN, T2DM ) Assessment & Plan Anesthesia* Anesthesia Assessment Anesthesia Assessment: Discussed sedation and/or anesthesia options, risks, benefits, and alternatives with patient/parents/legal guardian/POA. Questions invited. The patient/parents/legal guardian/POA seems to understand and agrees to proceed with anesthesia plan. Reviewed the physical assessment, medical history, allergy history and patient home medications list prior to surgery/procedure/anesthetic and documented any changes. Performed airway and anesthesia risk assessments. Given the patient's body habitus, I discussed the risks of anesthesia including but not limited to hypoxia secondary to DONNELL. The patient understands these risks and wishes to proceed. Anesthesia Type Anesthesia Type: General History Source History Obtained from:: Patient and Chart Anesthesia Focused Assessment* Temperature: 97.8 F Pulse Rate: 89 Blood Pressure: 141/77 Respiratory Rate: 18 Pulse Ox: 95 Oxygen Delivery Method: Room Air Airway Assessment Mouth opens: 2 cm Mallampati Score: IV Teeth Condition: Intact Neck Range of motion (ROM): Full ROM Focused Labs Anesthesia Preop lab: CBC WBC 12.2 K/mm3 (4.4-11.0) H 02/01/25 07:08 5 RBC 4.03 M/mm3 (4.2-5.4) L 02/01/25 07:08 02/01/25 Hgb 10.6 g/dL (12.0-15.0) L 02/01/25 07:08 5 Hct 33.4 % (37-47) L 02/01/25 07:08 02/01/25 Plt Count 409 K/mm3 (150-450) 02/01/25 07:08 02/01/25 CHEMISTRY Potassium 4.4 mmol/L (3.3-5.1) 02/01/25 07:08 02/01/25 Sodium 134 mmol/L (133-145) 02/01/25 07:08 02/01/25 Magnesium 2.0 mg/dL (1.6-2.6) 12/05/23 04:37 12/05/23 BUN 29 mg/dL (4-19) H 02/01/25 07:08 02/01/25 Creatinine 2.20 mg/dL (0.70-1.20) H 02/01/25 07:08 Glucose 185 mg/dL (70-99) H 02/01/25 07:08 02/01/25 POC Glucose 164 mg/dL (74-106) H 02/01/25 11:39 02/01/25 TSH 6.06 uIU/mL (0.358-3.74) H 12/05/23 04:37 03/0 04/22 COAG PT 14.0 SECONDS (11.7-14.9) 02/01/25 07:08 Urine Test Negative Negative 01/31/25 19:42 01/31/25 Pre-Assessment Diagnosis/Proposed Procedure Planned Operative Procedure(s): Cysto (please see surgeon note) Anesthesia History Anesthesia History - griddle attendant: Anesthesia History - griddle attendant Hx Hospitalization Yes: HTN 05/19/24 15:06 Any Problems With Anesthesia No 02/01/25 06:37 Cholinesterase deficiency No 02/01/25 06:37 You/Your Family Experience No 02/01/25 06:37 fever (hyperthermia) with Relationship Recent Exposure to Contagious No 02/01/25 06:37 Disease Does patient have nerve No 02/01/25 06:37 stimulator Patient instructed to have device shut off --Does patient have Pacemaker No 02/01/25 07:38 or ICD? When Was Last Pacemaker Check QUESTION #4 FULL TEXT: You/Your Family Experience fever (hyperthermia) with Anesthesia Last Oral Intake Last Oral intake: Last Oral Intake NPO since 00:01 02/01/25 07:38 Meds taken in AM with sips of Yes 02/01/25 07:38 water? Meds patient instructed to see 02/01/25 07:38 take am of surgery PONV PONV - griddle attendant: PONV - griddle attendant Female HX of Motion Sickness HX of N/V After Surgery Non-Smoker Duration of Surgery greater than 60 minutes Number of Risk Factors PONV Score Height & Weight Height & Weight: Anesthesia: Height & Weight Height 5 ft 3 in 02/01/25 14:49 Weight: 152.8 kg 02/01/25 14:49 Body Mass Index (BMI) 59.7 02/01/25 07:38 Respiratory Assessment Respiratory Assessment - griddle attendant: Respiratory Tract Infection Hx - griddle attendant Hx Respiratory Tract Infection No 02/01/25 06:37 STOP Sleep Apnea STOP Sleep Apnea - griddle attendant: STOP Sleep Apnea - griddle attendant Hx Hypertension Yes 01/30/25 14:11 Hx Sleep Apnea No 01/30/25 14:11 CPAP No 01/30/25 14:11 BIPAP No 01/30/25 14:11 Do you snore loudly (louder No 01/30/25 14:11 than talking or can be heard Do you often feel tired/ No 01/30/25 14:11 fatigued/ sleepy during daytime? Has anyone observed you stop No 01/30/25 14:11 breathing during sleep? STOP Results Negative 01/30/25 14:11 QUESTION #5 FULL TEXT : Do you snore loudly (louder than talking or can be heard through closed doors)? Tobacco Use History Tobacco Use History - griddle attendant: Tobacco Use History - griddle attendant Tobacco Use Smoking Status Never smoker 01/30/25 14:11 Hx Tobacco Use No 01/30/25 14:11 Years Smoking Packs Smoked per Day Smoking Cessation Date was within the last 15 years Hx Smoking Cessation Date Hx Smoking Cessation Counseling Hematologic Medial History Hematologic Hx - griddle attendant: Hematologic Medical Hx - rn surgery Hx of Blood Transfusion No 01/30/25 14:11 Hx of Transfusion in last 3 No 01/30/25 14:11 Months Date of Last Transfusion (if within last 3 months) Ever experience any problems No 01/30/25 14:11 with transfusion(s)? Specify any problems Hx of Preganancy in last 3 No 01/30/25 14:11 Months Nurse Filling Out Transfusion TCLEVIDEN 01/30/25 14:11 & Questions: Date: 01/30/25 01/30/25 14:11 Time: 14:33 01/30/25 14:11 Patient unable to answer at this time (ie. confused, unrespo /Reproduction History /Reproductive History - griddle attendant: /Reproductive Hx- griddle attendant Hx Now No 02/01/25 06:37 Gestational Age (in weeks): EDC: Hx Hx Para Hx Section SAB No 02/01/25 06:37 Active Medications Active Medications: Current Medications Generic Name Dose Route Start Last Admin Trade Name Freq PRN Reason Stop Dose Admin Acetaminophen 1,000 mg 01/30/25 22:00 02/01/25 14:00 Acetaminophen 500 Mg Tablet PO Not Given Q8 KOSTA Acyclovir 400 mg 01/30/25 22:00 02/01/25 15:17 Acyclovir 200 Mg Capsule PO Not Given BID KOSTA Albuterol Sulfate 2.5 mg 01/30/25 15:52 Albuterol 2.5 Mg/3 Ml Vial.Neb. INHALATION Q6H PRN Sob &/Or Wheezing Clarify Med Order 1 each 02/01/25 10:30 02/01/25 15:18 Clarify Order NOTE Not Given CLARIFY KOSTA Cyclobenzaprine HCl 10 mg 01/30/25 15:20 01/30/25 21:28 Cyclobenzaprine Hcl 10 Mg Tablet PO 10 mg TID PRN PRN Administration muscle spasm Empagliflozin 10 mg 01/31/25 10:00 01/31/25 08:35 Empagliflozin 10 Mg Tablet PO 10 mg DAILY KOSTA Administration Hydrochlorothiazide 12.5 mg 01/31/25 10:00 01/31/25 08:35 Hydrochlorothiazide 12.5mg PO 12.5 mg DAILY KOSTA Administration Sodium Chloride 250 mls @ 15 mls/hr 01/30/25 14:20 IV .[id number] PRN Saline Flush Sodium Chloride 250 mls @ 15 mls/hr 01/30/25 14:20 IV .[id number] PRN Additional IVPB Infusion Lactated Ringer's 1,000 mls @ 125 mls/hr 01/30/25 15:30 02/01/25 14:04 IV 125 mls/hr .Q8H KOSTA Administration Piperacillin Sod/Tazobactam 50 mls @ 12.5 mls/hr 01/30/25 22:00 02/01/25 14:06 Sod 3.375 gm/ Sodium Chloride IV 12.5 mls/hr Q8 KOSTA Administration Insulin Human Lispro 0 unit 01/30/25 17:10 02/01/25 13:59 Insulin Lispro 100 Unit/Ml Insuln.Pen SC Not Given ACHS [facility] Protocol Ketorolac Tromethamine 15 mg 01/30/25 15:16 01/31/25 03:54 Ketorolac 15 Mg/Ml Vial IV 02/04/25 15:19 15 mg Q6H PRN PRN Administration Pain Score 1-10 Loratadine 10 mg 01/31/25 10:00 01/31/25 08:34 Loratadine 10 Mg Tablet PO 10 mg Q24 KOSTA Administration Losartan Potassium 100 mg 01/31/25 10:00 01/31/25 08:34 Losartan Potassium 100 Mg Tablet PO 100 mg DAILY KOSTA Administration Metformin HCl 1,000 mg 01/30/25 17:30 02/01/25 10:36 Metformin Hcl 1,000 Mg Tablet PO Not Given BIDCM [facility] Metformin HCl 500 mg 01/30/25 17:00 01/31/25 16:39 Metformin Hcl 500 Mg Tablet PO 500 mg DINNER KOSTA Administration Metoprolol Succinate 25 mg 01/31/25 10:00 02/01/25 07:44 Metoprolol(Xl)Succ 25 Mg Tablet PO 25 mg DAILY [facility] Administration Protocol Minoxidil 2.5 mg 01/31/25 10:00 01/31/25 08:35 Minoxidil 2.5 Mg Tablet PO 2.5 mg DAILY KOSTA Administration Protocol Morphine Sulfate 2 - 4 mg 01/30/25 15:16 02/01/25 06:21 Morphine 2 Mg/Ml Syringe IV 4 mg Q3H PRN PRN Administration Pain Score 6-10 Non-Formulary Medication 1 applic 01/31/25 10:00 Clindamycin Phosphate TOPICAL DAILY [facility] Ondansetron HCl 4 mg 01/30/25 15:16 02/01/25 06:20 Ondansetron 4 Mg/2 Ml Vial IV 4 mg Q8H PRN PRN Administration NAUSEA/VOMITING Oxycodone HCl 10 mg 01/30/25 15:16 01/31/25 22:41 Oxycodone 5 Mg Tablet PO 10 mg Q4H PRN PRN Administration Pain Score 4-10 Pregabalin 100 mg 01/30/25 15:51 Pregabalin 50 Mg Capsule PO TID PRN PRN NERVE PAIN Promethazine HCl 12.5 mg 01/31/25 08:09 01/31/25 08:28 Promethazine 25 Mg/Ml Syringe IM 12.5 mg Q8H PRN PRN Administration NAUSEA/VOMITING Sodium Chloride 10 - 40 ml 01/30/25 14:20 0.9% Saline Lock 10 Ml Syringe IV UD PRN SALINE FLUSH [facility] Medical History Kidney stone Contraceptive management Wears glasses Marijuana use Alcohol use Arthritis Low iron Fatty liver High cholesterol Easy bruising Back pain Syncope Dietary restriction Heartburn Non-smoker Shortness of breath on exertion Leg cramps History of pain when walking History of edema History of echocardiogram Morbid obesity Diabetes mellitus, type 2 Asthma Migraines Bilateral ovarian cysts PCOS (polycystic ovarian syndrome) Anxiety and depression Home Medications ?Medication ?Instructions ?Recorded ?Last Taken ?Type albuterol sulfate 90 mcg/actuation 2 puff inhalation Q 6H PRN Sob &/Or 05/08/18 U nknown History breath activated powder inhaler Wheezing meloxicam 15 mg tablet 15 mg PO DAILY 08/25/2305/01 History metformin 1,000 mg tablet 2,000 mg PO BID 08/25/2311/24 History cholecalciferol (vitamin D3) 1,250 50,000 unit PO FR 0 12/04/23 01/29/25 History mcg (50,000 unit) capsule cyclobenzaprine 10 mg tablet 10 mg PO TID PRN muscle s pasm 12/04/23 05/27/24 Hi story loratadine 10 mg tablet 10 mg PO Q24H 12/04/2301/29 History losartan 100 1 tab PO DAILY 02/03/2411/24 History mg-hydrochlorothiazide 12.5 mg tablet metformin 500 mg tablet 500 mg PO QPM 02/03/2401/29 History cyanocobalamin (vitamin B-12) 1,000 mcg PO DAILY 03/0801/29/25 History 1,000 mcg tablet (Vitamin B-12) clindamycin phosphate 1 % lotion 1 applic topical LANRE Y 04/23/24 01/29/25 History minoxidil 2.5 mg tablet 2.5 mg PO DAILY 04/23/2411/24 History valacyclovir 500 mg tablet 500 mg PO DAILY 04/23/24 History ciprofloxacin HCl 500 mg tablet 500 mg PO BID #14 TABL ETS 01/23/25 01/29/25 Rx empagliflozin 10 mg tablet 10 mg PO DAILY 01/30/2511/24 History (Jardiance) metoprolol succinate 25 mg 25 mg PO DAILY blood pressu re 01/30/25 01/29/25 History tablet,extended release 24 hr ondansetron 4 mg disintegrating 4 mg PO Q8H PRN Nausea 01/30/25 01/29/25 History tablet pregabalin 100 mg capsule 100 mg PO TID PRN NERVE PAIN 01/30/25 01/29/25 History tretinoin 0.025 % topical cream 1 applic topical QHS a cne 01/30/25 01/29/25 History Allergy/AdvReac Type Severity Reaction Status Date / Time hydralazine AdvReac Mild Other Verified 01/30/25 10:40 Family History Mother Diabetes Kidney disease Surgical History Hx of cystoscopy History of cholecystectomy S/P laparoscopic procedure History of tonsillectomy corrective eye surgery History of ear, nose, and throat (ENT) surgery Social History household members: significant other housing: apartment Smoking Status: Never smoker alcohol intake: never substance use type: marijuana and other details: Edible cannabis OTC twice weekly. caffeine: No what type of physical activity do you participate in: walking seatbelt use: always do you feel safe at home: Yes additional social history: [employer] Patient is unemployed Review of Systems (Anesthesia) ROS Narrative System reviewed and no additional complaints, except as documented. Physical Exam Const alert and oriented x3 Nutritional Appearance: morbidly obese Resp normal respiratory effort, normal air movement and clear to auscultation bilaterally Cardio regular rate, regular rhythm, no murmurs and diaphoretic
--- NOTE | 2025-02-01 16:04 | OP.PCM_ITS ---
Operative Report (Standard) Operative Information Date of Procedure: 02/01/25 Pre-Operative Diagnosis: left ureteral calculus, uncontrolled pain Post-Operative Diagnosis: same Surgery/Procedure Performed: cystoscopy, left ureteroscopy senior marketing coordinator: No Type of Anesthesia: General RN Documented Start/Stop Times: Operation Date: 02/01/25 16:00 Case Time Into Pre-Op 02/01/25 15:05 Anesthesia Start 02/01/25 16:02 Into Room 02/01/25 16:02 Estimated Blood Loss: <5cc Description of surgery: The patient is a 29-year-old female known to me with a history of stones who was admitted from the emergency department 2 days ago with a left proximal ureteral stone with uncontrolled pain, nausea and vomiting. She now presents for management of this stone. Informed consent was obtained. The patient was taken to the operating room and placed on the operating room table. Anesthesia monitored the head, neck, airway, IV access and vital signs throughout the case. Once anesthesia was appropriate administered, she was placed in dorsal lithotomy position was prepped and draped in usual sterile fashion. The cystoscope was inserted through the urethra under direct visualization. No foreign bodies, mass or tumor were identified. The left ureteral orifice was gently intubated with 2 separate 0.035 Glidewire's. One of the Glidewire's was utilized for placement of the flexible ureteroscope into the left ureter. At this time the cystoscope was used to backloaded the safety wire and a 4.5 Maldivian by 24 cm JJ stent was placed over the wire with good curling in the renal pelvis as well as the urinary bladder. The bladder was then emptied and the cystoscope was removed. She was awakened and taken to the recovery room in good condition. There were no complications during this procedure. Complications Complications: No Admit VTE Documentation VTE Present on Admission: Yes VTE Mechan Device Prophylaxis: SCD's VTE Pharm Prophylaxis ordered?: No Reason prophylaxis not ordered: Treatment Not Indicated
--- NOTE | 2025-02-01 16:04 | PCM.OPRPT ---
Operative Report (Standard) Operative Information Date of Procedure: 02/01/25 Pre-Operative Diagnosis: left ureteral calculus, uncontrolled pain Post-Operative Diagnosis: same Surgery/Procedure Performed: cystoscopy, left ureteroscopy, thulium laser lithotripsy, stone basket extraction, left ureteral stent insertion scrap baler: No Type of Anesthesia: General RN Documented Start/Stop Times: Operation Date: 02/01/25 16:00 Case Time Into Pre-Op 02/01/25 15:05 Anesthesia Start 02/01/25 16:01 Into Room 02/01/25 16:01 Procedure Start 02/01/25 16:19 Procedure End 02/01/25 16:50 Procedure Start Time: 16:19 Procedure Stop Time: 16:50 Select all DRAINS/GRAFTS/IMPLANTS that apply: Drains Drain details: 6 Nepalese by 24 cm JJ stent Estimated Blood Loss: <5cc Specimen collected: Yes Description of specimen(s) removed: Left ureteral calculus Description of surgery: The patient is a 29-year-old female known to me with a history of stones who was admitted from the emergency department 2 days ago with a left proximal ureteral stone with uncontrolled pain, nausea and vomiting. She now presents for management of this stone. Informed consent was obtained. The patient was taken to the operating room and placed on the operating room table. Anesthesia monitored the head, neck, airway, IV access and vital signs throughout the case. An abdominal strap was utilized for retraction of her pannus. Once anesthesia was appropriate administered, she was placed in dorsal lithotomy position was prepped and draped in usual sterile fashion. The cystoscope was inserted through the urethra under direct visualization. No foreign bodies, mass or tumor were identified. The left ureteral orifice was gently intubated with 2 separate 0.035 Glidewire's. One of the Glidewire's was utilized for placement of the flexible ureteroscope into the left ureter. The stone was identified in the mid ureter. It was broken into smaller pieces using the thulium laser 200 ?m fiber. Once the pieces were small enough, the stone basket was utilized for removal of the fragments. A semirigid ureteroscope was then utilized to survey the area following removal of all visualized stone fragments. The ureter was intact without evidence of injury and no further stone was identified. At this time the cystoscope was utilized to backload the safety wire and a 6 Nepalese 24 cm JJ stent was placed over the wire with good positioning in the renal pelvis as well as the urinary bladder. The patient's bladder was then emptied and the cystoscope was removed. She was awakened and taken to the recovery room in good condition. There were no complications during this procedure. Surgical Findings: Mid ureteral calculus, more distal than seen on CT imaging Complications Complications: No Admit VTE Documentation VTE Present on Admission: Yes VTE Mechan Device Prophylaxis: SCD's VTE Pharm Prophylaxis ordered?: No Reason prophylaxis not ordered: Treatment Not Indicated
--- NOTE | 2025-02-01 17:04 | PCM.POST.ANE ---
Anesthesia: Postop Eval I Current Vital Signs Temperature: 97.8 F Pulse Rate: 102 Blood Pressure: 133/99 Respiratory Rate: 20 Pulse Ox: 93 Oxygen Delivery Method: Room Air Assessment Airway patent: Yes Spontaneous unlabored respirations: Yes Mental status: Awake and Calm nausea: No Vomiting: No Anesthesia Complication: No Fluid Hydration Crystalloid volume administer (ml): 400 Total IV fluid infused: 400 Progress Note Anesthesia document: Postop Eval 1 completed: Yes
[2025-02-01] MEDS: 0.9% Saline Lock 10 ML Syringe IV ×2 (18:35→20:24)
[2025-02-01] MEDS: Insulin Lispro 100 UNIT/ML INSULN.PEN SC ×2 (18:48→22:21)
[2025-02-01 18:49] LABS: Bedside Glucose 205 mg/dL (74-106)
--- NOTE | 2025-02-01 18:50 | POSTOPAN2_ITS ---
Anesthesia Postop Eval I Sum Postop Eval Completion status Anesthesia document: Postop Eval 1 completed: Yes Anesthesia Postop Eval I Summary Anesthesia Postop Eval I Summary: Anesthesia Postop Eval I: Assessment Summary Airway patent Yes 02/01/25 17:05 [email or web address] Spontaneous unlabored Yes 02/01/25 17:05 [email or web address] respirations Mental status Awake,Calm 02/01/25 17:05 [email or web address] nausea No 02/01/25 17:05 [email or web address] Vomiting No 02/01/25 17:05 [email or web address] Anesthesia Postop Eval I: Fluid Summary Crystalloid volume administer 400 02/01/25 17:05 [email or web address] (ml) Colloids volume administered ( ml) Blood Product volume administered (ml) Total IV fluid infused 400 02/01/25 17:05 [email or web address] Anesthesia Postop Eval I: Summary Notes Anesthesia Complication No 02/01/25 17:05 [email or web address] Anesthesia Complication Comment: Post-operative progress note Anesthesia: Postop Eval II Evaluation Mental status: Awake Pain Level: 0 nausea: No Vomiting: No Complications Anesthesia Complication: No
--- NOTE | 2025-02-01 18:50 | PCM.POSTANE2 ---
Anesthesia Postop Eval I Sum Postop Eval Completion status Anesthesia document: Postop Eval 1 completed: Yes Anesthesia Postop Eval I Summary Anesthesia Postop Eval I Summary: Anesthesia Postop Eval I: Assessment Summary Airway patent Yes 02/01/25 17:05 [email or web address] [email or web address] Spontaneous unlabored Yes 02/01/25 17:05 [email or web address] [email or web address] respirations Mental status Awake,Calm 02/01/25 17:05 [email or web address] nausea No 02/01/25 17:05 [email or web address] [email or web address] Vomiting No 02/01/25 17:05 [email or web address] Anesthesia Postop Eval I: Fluid Summary Crystalloid volume administer 400 02/01/25 17:05 [email or web address] [email or web address] (ml) Colloids volume administered ( ml) Blood Product volume administered (ml) Total IV fluid infused 400 02/01/25 17:05 [email or web address] Anesthesia Postop Eval I: Summary Notes Anesthesia Complication No 02/01/25 17:05 [email or web address] [email or web address] Anesthesia Complication Comment: Post-operative progress note Anesthesia: Postop Eval II Evaluation Mental status: Awake Pain Level: 0 nausea: No Vomiting: No Complications Anesthesia Complication: No
--- NOTE | 2025-02-01 19:35 | NURSING ---
pt refused her meds that had not been given throughout the day d/t npo status d/t sore throat right now.
[2025-02-01] MEDS: oxyCODONE 5 MG Tablet 10 MG PO (20:24)
[2025-02-01] MEDS: 0.9% Normal Saline (250mL Bag) 250 ML 15 ML IV (22:19)
[2025-02-01] MEDS: Acyclovir 200 MG Capsule 400 MG PO (22:21)
[2025-02-01] MEDS: Acetaminophen 500 MG Tablet 1000 MG PO (22:21)
[2025-02-01 22:51] LABS: Bedside Glucose 211 mg/dL (74-106)
[2025-02-02 02:14] VITALS: BP 119/70; PULSE 94; RESP 18; TEMP 36.8; O2SAT 97
[2025-02-02] MEDS: oxyCODONE 5 MG Tablet 10 MG PO (02:48)
[2025-02-02 06:14] VITALS: BP 139/77; PULSE 74; RESP 16; TEMP 36.5; O2SAT 100
[2025-02-02] MEDS: Insulin Lispro 100 UNIT/ML INSULN.PEN SC (06:15)
[2025-02-02] MEDS: Piperacil/Tazobactam 3.375 GM in 0.9% Normal Saline (50mL MB+) 50 ML IV (06:15)
[2025-02-02] MEDS: Acetaminophen 500 MG Tablet 1000 MG PO (06:15)
[2025-02-02] MEDS: Morphine 2 MG/ML Syringe IV (06:21)
[2025-02-02 06:45] LABS: Bedside Glucose 156 mg/dL (74-106)
--- NOTE | 2025-02-02 07:32 | DCINST_ITS ---
Discharge Instructions Diet Discharge Diet: Carb Control Diet Activity Discharge Activity: Return to Normal Activity Dressing / Incision Call your doctor if you observe: Fever of 101 or Higher, Inability to urinate and Inability to have a bowel movement Follow Up Care Please Follow Up With: Sarah Lunsford MD When: The office will call to make arrangements for stent removal next week. Test Results: Test results from this visit will be discussed in further detail at your follow- up appointment, if applicable. Discharge Plan Admission Admit Date/Time: 01/30/25 13:13 Attending Provider: Sarah Lunsford Primary Care Provider: Xiang Ruiz Discharge Orders/Prescriptions Prescriptions: New ondansetron 8 mg tablet,disintegrating 8 mg PO Q8H PRN (Reason: nausea and vomiting) Qty: 10 0RF oxycodone-acetaminophen 5-325 mg tablet 1 tab PO Q8H PRN (Reason: pain) 3 Days Qty: 10 0RF phenazopyridine 200 mg tablet 200 mg PO TID PRN (Reason: pain) Qty: 30 3RF Continued albuterol sulfate 90 mcg/actuation aerosol powdr breath activated 2 puff INHALATION Q6H PRN (Reason: Sob &/Or Wheezing) meloxicam 15 mg tablet 15 mg PO DAILY Patient Comments: PT DOES NOT TAKE metformin 1,000 mg tablet 2,000 mg PO BID cyanocobalamin (vitamin B-12) [Vitamin B-12] 1,000 mcg tablet 1,000 mcg PO DAILY ciprofloxacin HCl 500 mg tablet 500 mg PO BID Qty: 14 0RF Jardiance 10 mg tablet 10 mg PO DAILY pregabalin 100 mg capsule 100 mg PO TID PRN (Reason: NERVE PAIN) tretinoin 0.025 % cream 1 applic topical QHS metoprolol succinate 25 mg tablet extended release 24 hr 25 mg PO DAILY ondansetron 4 mg tablet,disintegrating 4 mg PO Q8H PRN (Reason: Nausea) cholecalciferol (vitamin D3) 1,250 mcg (50,000 unit) capsule 50,000 unit PO FR Patient Comments: take 1 capsule by mouth every week loratadine 10 mg tablet 10 mg PO Q24H cyclobenzaprine 10 mg tablet 10 mg PO TID PRN (Reason: muscle spasm) metformin 500 mg tablet 500 mg PO QPM losartan-hydrochlorothiazide 100-12.5 mg tablet 1 tab PO DAILY clindamycin phosphate 1 % lotion 1 applic topical DAILY valacyclovir 500 mg tablet 500 mg PO DAILY Patient Comments: CAN TAKE UP TO 3 FOR A SINGLE DAY minoxidil 2.5 mg tablet 2.5 mg PO DAILY Referrals / Follow Up: Xiang Ruiz DO [Primary Care Provider] - Disposition Disposition (needs filled in before D/C Order can be placed): Home, Self Care
--- NOTE | 2025-02-02 07:35 | PCM.PN.GU ---
Subjective Subjective Feeling better this morning, no nausea and ready to go home. There is some soreness but much improved. Objective Data Objective Data Vital Signs: Vital Signs Temp Pulse Resp BP Pulse Ox O2 Del Method O2 Flow Rate 97.7 F L 74 16 139/77 H 100 Room Air 2 02/02/25 06:14 02/02/25 06:14 02/02/25 06:14 02/02/25 06:14 02/02/25 06:14 02/02/25 06:14 02/01/25 17:45 Oxygen Flow Rate (L/min) 2 Oxygen Delivery Method Room Air Weight: 152.8 kg Body Mass Index (BMI) 59.7 Intake & Output: Intake and Output for Last 24 Hours 01/31/25 02/01/25 02/02/25 23:59 23:59 23:59 Intake Total 5543.75 / 6043.75 3286.20 / 3286.20 850 / 850 Balance 5543.75 / 6043.75 3286.20 / 3286.20 850 / 850 Lab / Micro Data 02/01/25 07:08 02/01/25 07:08 Labs: Laboratory Results - last 24 hr 02/01/25 07:08: WBC 12.2 H, RBC 4.03 L, Hgb 10.6 L, Hct 33.4 L, MCV 82.9, MCH 26.3 L, MCHC 31.7 L, RDW Std Deviation 46.3 H, RDW Coeff of Servando 15.4 H, Plt Count 409, MPV 9.6, Immature Gran % (Auto) 0.300, Neut % (Auto) 67.1, Lymph % (Auto) 23.9, [place] % (Auto) 6.1, Eos % (Auto) 2.0, Baso % (Auto) 0.6, Absolute Neuts (auto) 8.2 H, Absolute Lymphs (auto) 2.92, Nucleated RBC % 0, PT 14.0, INR 1.1, APTT 27.3, Sodium 134, Potassium 4.4, Chloride 103, Carbon Dioxide 17.6 L, Anion Gap 13, BUN 29 H, Creatinine 2.20 H, Estim Creat Clear Calc 54.15, Est GFR (MDRD) Non-Af 30 L, BUN/Creatinine Ratio 13.1, Glucose 185 H, Hemoglobin A1c 10.0 H, Calcium 8.6, Total Bilirubin 0.53, Direct Bilirubin 0.28, AST 61 H, ALT 43 H, Alkaline Phosphatase 196 H, Total Protein 7.2, Albumin 3.3 L, Globulin 3.9 02/01/25 11:39: POC Glucose 164 H 02/01/25 18:26: POC Glucose 205 H 02/01/25 22:08: POC Glucose 211 H 02/02/25 06:13: POC Glucose 156 H Micro: Microbiology 01/30/25 11:40 Urine, Clean Catch Urine Culture - Final Mixed Gram Pos & Gram Neg Org Physical Exam Const alert, oriented x3 and no apparent distress HEENT normocephalic and head/scalp atraumatic Eyes General Eye: normal appearance of both eyes Resp normal respiratory effort and normal air movement Cardio regular rate GI soft to palpation, non-tender and non-distended Assessment & Plan Assessment/Plan (1) UTI (urinary tract infection): (2) Hydronephrosis: (3) Ureterolithiasis: PLAN: Plan Discharge home today Plan for stent removal next week in the office
[2025-02-02 08:31] VITALS: BP 135/75; PULSE 82; RESP 18; TEMP 36.7; O2SAT 96
[2025-02-10 17:08] LABS: Size 5x4 mm (.); Uric Acid 100 % (.)
== END 2025-02-02 07:35 | disposition home or self-care (01) ==
LOC: ED 12:43 → MS3 02-01 06:27
PROVIDERS: Specialist; Admitting Provider Urology; Emergency Provider Emergency Medicine; PCP Student in an Organized Health Care Education/Training Program; Visit Provider Urology
PROC: 0TJ98ZZ Inspection of Ureter, Via Natural or Artificial Opening Endoscopic (ICD-10-PCS; CPT 52352; principal; 2025-02-01 15:50)
DX: N13.6 Pyonephrosis (principal); Z68.44 Body mass index [BMI] 60.0-69.9, adult; E66.01 Morbid (severe) obesity due to excess calories; E11.9 Type 2 diabetes mellitus without complications; Z79.84 Long term (current) use of oral hypoglycemic drugs; Z79.1 Long term (current) use of non-steroidal anti-inflammatories (NSAID); Z83.3 Family history of diabetes mellitus
CPT/HCPCS: 52356; 00910; C2617; 36415; 74176; 76000; 80048; 80076; 81001; 81025; 82360; 82962; 83036; 83605; 85025; 85610; 85730; 87086; 87088; 93005; 96361; 96365; 96366; 96372; 96375; 96376; 99221; 99285; C1769; A4216; G0378; J2405